=== PATIENT | female | born 1935 | race Caucasian/White ===

== ENCOUNTER 2017-09-01 08:23 | Emergency (ER) | payer MEDICARE ==
[~2017-09-01] VITALS: Ht 162.6 cm; Wt 63.5 kg
[~2017-09-01 08:23] MED LIST: ALENDRONATE SOD70 MG PO; AMLODIPINE BESY10 MG PO; ANTIVERT; AREDS PO; ASPIRIN81 MG PO; BACLOFEN10 MG PO; CETIRIZINE HCL10 MG PO; CIPRO500 MG PO; CRESTOR10 MG PO; FLONASE16 GM; FUROSEMIDE20 MG PO; GABAPENTIN100 MG PO; HYDRALAZINE HCL25 MG PO; LEVAQUIN500 MG PO; LEVOTHYROXINE50 MCG PO; LIDODERM700 MG TP; LISINOPRIL10 MG PO; LORATADINE10 MG PO; MELOXICAM7.5 MG PO; NIACIN500 M2 PO; NITROFURANTOIN100 MG PO; OCUVITE TABLET1 EAC1 PO; PREDNISONE5 MG PO; VITAMIN D1000 UNI1 PO; ZANAFLEX2 M1 PO
--- OUTSIDE RECORDS SUMMARY | 2017-09-01 08:26 | XMS REPORT ---
[facility] Address Unknown Phone Unavailable Care Team Providers Care Insurance Service Representative Name Role Phone NEERAJ TIRADO Unavailable Unavailable CHASE, SANDRA Unavailable Unavailable Problems This patient has no known problems. Allergies, Adverse Reactions, Alerts This patient has no known allergies or adverse reactions. Medications This patient has no known medications. Results Test Description Test Time Test Comments Text Results Atomic Results Result Comments CHEST SINGLE (PORTABLE) [place] [address] Patient Name: YUE RAMSEY MR #: [id number] : 1935 Age/Sex: 81/F Req #: [id number] Adm Physician: Ordered by: NEERAJ TIRADO MD Report #: [id number] Location: ER Room/Bed: Procedure: [id number] DX/CHEST SINGLE (PORTABLE) Exam Date: 03/13/17 Exam Time: 0935 REPORT STATUS: Signed PROCEDURE: CHEST SINGLE (PORTABLE) COMPARISON: Chest x-ray from 01/12/17. INDICATIONS: ALTERED MENTAL STATUS FINDINGS: Lines and tubes: None The cardiac silhouette is prominent, possibly accentuated by low lung volumes. No focal pulmonary opacity, pleural effusion or pneumothorax. Upper abdomen unremarkable with no free air. No acute bony abnormality. CONCLUSION: No evidence for acute disease. Dictated by: Asad Lewis M.D. on 03/13/2017 at 10:00 Electronically approved by: Asad Lewis M.D. on 03/13/2017 at 10:00 Dictated By: ASAD LEWIS MD 1000 Transcribed By: NAM on 03/13/17 1000 COPY TO: NEERAJ TIRADO MD CT BRAIN WO [place] [address] Patient Name: YUE RAMSEY MR #: [id number] : 1935 Age/Sex: 81/F Req #: [id number] Adm Physician: Ordered by: NEERAJ TIRADO MD Report #: [id number] Location: ER Room/Bed: Procedure: [id number] CT/CT BRAIN WO Exam Date: 03/13/17 Exam Time: 932 REPORT STATUS: Signed EXAMINATION: Head CT HISTORY: Altered mental status COMPARISON: Head CT on 08/03/2014 TECHNIQUE: Multidetector axial images were obtained without contrast from the foramen magnum to the vertex . The images were reconstructed using brain and bone algorithms. Thin section brain images were reformatted into coronal and sagittal planes. Intravenous contrast: None. Motion/streaking artifact limits the evaluation of the skull base and posterior cranial fossa. FINDINGS: Parenchyma: 1. Mild white matter chronic contrast and ischemic changes, within normal limits for age. 2. No mass or hemorrhage. No CT evidence of acute territorial vascular insult. Extra-axial spaces:No abnormal density. No extra-axial fluid collections Brain volume: Normal for age. Ventricles: No hydrocephalus or displacement. Arteries : No density suggestive of thrombus. Dural sinuses: No abnormal density. Extra-axial spaces: No abnormal density. Foramen magnum : No mass, Chiari malformation, or basilar invagination. Sella: No obvious mass. Paranasal/mastoid sinuses: Imaged portions unremarkable. Skull/Scalp: No lytic or blastic lesions. No fractures. IMPRESSION: 1. No acute abnormalities, particularly no hemorrhage or cortical infarct. 2. Mild chronic microvascular ischemic changes. Signed by: Dr. Peterson Castro M.D. on 03/13/2017 11:15 AM Dictated By: PETERSON CASTRO MD 111 Transcribed By: GELY on 03/13/17 1115 COPY TO: NEERAJ TIRADO MD ABDOMEN-1VIEW (KUB) [place] [address] Patient Name: YUE RAMSEY MR #: [id number] : 1935 Age/Sex: 81/F Req #: [id number] Adm Physician: SANDRA CHASE MD Ordered by: MATTHEW GALAVIZ MD Report #: [id number] Location: [facility] Room/Bed: [place] [address] Procedure: [id number] DX/ABDOMEN-1VIEW (KUB) Exam Date : 03/08/17 Exam Time: 1347 REPORT STATUS: Signed EXAM: Abdomen 2 Views INDICATION: Abdominal pain. COMPARISON: MRCP dated 01/13/2017 FINDINGS: Limited by body habitus. Nonobstructive bowel gas pattern. No signs of pneumoperitoneum. Multilevel degenerative changes of lumbar spine. Lung bases are clear. Soft tissue calcifications overlying iliac bones. IMPRESSION: 1. Nonobstructive bowel gas pattern. Signed by: Dr. Slick Haas MD on 03/08/2017 2:12 PM Dictated By: SLICK HAAS MD 11 Transcribed By: GELY on 03/08/171411 COPY TO: MATTHEW GALAVIZ MD US ABDOMEN COMPLETE [place] [address] Patient Name: YUE RAMSEY MR #: [id number] : 1935 Age/Sex: 81/F Req #: [id number] Adm Physician: SANDRA CHASE MD Ordered by: MATTHEW GALAVIZ MD Report #: [id number] Location: [facility] Room/Bed: [place] [address] Procedure: [id number] US/US ABDOMEN COMPLETE Exam Date : Exam Time: REPORT STATUS: Signed EXAM: Complete Abdominal Ultrasound INDICATION: COMPARISON: Ultrasound dated 01/12/2017. TECHNIQUE: Transverse and longitudinal images of the upper abdomen were obtained. FINDINGS: Liver: Size: 14.1 cm in the right midclavicular line, normal Appearance: Normal echogenicity, smooth contour Mass: No focal masses Spleen: Size: 9.5 cm in length, normal Echogenicity: Normal Mass: No focal masses Gallbladder: Stones/Sludge: None Wall: 0.1 cm Appearance : No pericholecystic fluid or hydrops. Sonographic Sierra's Sign: Negative Bile Ducts: Intrahepatic Ducts: No dilatation Extrahepatic Ducts: Common bile duct measures 0.3 cm, normal Pancreas: Visualized portions of the pancreatic head, neck and proximal body are normal. Right Kidney: Size: 9.7 cm Echogenicity: Normal Parenchymal thickness: Normal Collecting System: No hydronephrosis Stone: None Cyst/Mass: Multiple right renal cysts , the largest measuring 5.1 x 4.6 x 4.1 cm and 2.9 x 1.6 x 3 cm Left Kidney: Size: 8.6 cm Echogenicity: Normal Parenchymal thickness: Normal Collecting System: No hydronephrosis Stone: None Cyst/Mass: 2.3 x 2.1 x 2.2 cm cyst. Vessels: Aorta: Visualized portions are normal Inferior Vena Cava: Visualized portions are normal Main Portal Vein: 0.8 cm, normal size with hepatopetal flow. Free Fluid: No ascites or pleural effusion IMPRESSION: Bilateral renal cysts. Otherwise, unremarkable abdominal ultrasound. Signed by: Dr. Slick Haas MD on 03/08/2017 4 :51 PM Dictated By: SLICK HAAS MD 50 Transcribed By: GELY on 03/08/171650 COPY TO: MATTHEW GALAVIZ MD MRI MRCP WO [place] [address] Patient Name: YUE RAMSEY MR #: [id number] : 1935 Age/Sex: 81/F Req #: [id number] Adm Physician: SANDRA CHASE MD Ordered by: ABRAHAM TOLENTINO MD Report #: [id number] Location: [place] [address] Room/Bed: [facility] Procedure: [id number] MRI/MRI MRCP WO Exam Date: 01/13/17 Exam Time: 0850 REPORT STATUS: Signed EXAM: Magnetic Resonance Cholangiopancreatography (M.R.C.P.) INDICATION: COMPARISON: Abdominal ultrasound 01/12/2017, abdominal CT 01/12/2017 TECHNIQUE: Multiplanar, multisequence MRCP was performed, with sequences including coronal turbo spin-echo T1-weighted scans, [facility] MRCP scans, coronal spin, [facility]PR 2[facility], [facility]. IV Contrast: None Oral Contrast: None Medications: None COMPLICATIONS : None FINDINGS: LOWER THORAX: Trace pericardial effusion. HEPATOBILIARY: No focal hepatic lesions. No biliary ductal dilation. No filling defects within the common bile duct. GALLBLADDER: No stones or sludge. Previously noted sludge on ultrasound 01/12/2017 is not apparent on the current exam. No wall thickening. SPLEEN: No splenomegaly. PANCREAS: No focal masses or ductal dilatation. ADRENALS: No adrenal nodules KIDNEYS/URETERS: No hydronephrosis. Multiple bilateral renal cysts measuring up to 5.1 cm in the right kidney and 2.4 cm and the left kidney. These appear simple, although evaluation is limited without intravenous contrast. Renal stones are difficult to visualize with MRI. GI TRACT: No abnormal distention, wall thickening, or evidence of bowel obstruction. Small to moderate hiatal hernia. LYMPH NODES: Prominent mandi hepatis lymph nodes measure up to 1.1 cm, nonspecific. VESSELS: Unremarkable. PERITONEUM / RETROPERITONEUM: No free fluid. BONES: Unremarkable. SOFT TISSUES: Unremarkable. IMPRESSION: 1. No acute abnormalities. 2. Multiple bilateral renal cysts. 3. Prominent mandi hepatis lymph nodes are nonspecific but can be seen with hepatitis infection. 4. Hiatal hernia. Signed by: DR. Nick Costa MD on 01/13/2017 3:41 PM Dictated By: NICK COSTA MD 1541 Transcribed By: GELY on 01/13/17 1541 COPY TO: ABRAHAM TOLENTINO MD CHEST 2 VIEWS [place] [address] Patient Name: YUE RAMSEY MR #: [id number] : 1935 Age/Sex: 81/F Req #: [id number] Adm Physician: Ordered by: NEERAJ TIRADO MD Report #: [id number] Location: ER Room/Bed: Procedure: DX/CHEST 2 VIEWS Exam Date: 01/12/17 Exam Time: 1445 REPORT STATUS: Signed EXAMINATION: Chest, CHEST 2 VIEWS INDICATION: Chest pain COMPARISON: None FINDINGS: LINES : None. Heart: Normal cardiac silhouette. Vascular: The pulmonary vasculature is within normal limits. Atherosclerotic calcifications of the aortic arch. Mediastinum: No mediastinal, hilar, or axillary mass or lymphadenopathy. Lungs: No parenchymal mass. No focal consolidation. Pleura: No pleural effusion. No pneumothorax. Bones: No acute osseous abnormality. Degenerative changes of the thoracic spine. Soft tissues: Normal. Impression: No acute radiographic abnormality. Signed by: Dr. Julio Pino M.D. on 01/12/2017 3:31 PM Dictated By: JULIO PINO MD 1531 Transcribed By: GELY on 01/12/17 1531 COPY TO: NEERAJ TIRADO MD CT ABDOMEN/PELVIS WO [place] [address] Patient Name: YUE RAMSEY MR #: [id number] : 1935 Age/Sex: 81/F Req #: [id number] Adm Physician: Ordered by: NEERAJ TIRADO MD Report #: [id number] Location: ER Room/Bed: Procedure: [id number] CT/CT ABDOMEN/PELVIS WO Exam Date: 01/12/17 Exam Time: 1500 REPORT STATUS: Signed EXAM: CT Abdomen and Pelvis WITHOUT contrast INDICATION: Abdominal pain COMPARISON: None. TECHNIQUE: Abdomen and pelvis were scanned utilizing a multidetector helical scanner from the lung base to the pubic symphysis. Coronal and sagittal reformations were obtained. The lack of intravenous contrast limits the evaluation of the solid organs, vasculature, and possible lymphadenopathy. Protocol: General survey without contrast IV CONTRAST : No intravenous contrast was administered as per physician request. ORAL CONTRAST: None. COMPLICATIONS: None. RADIATION DOSE: Total Exam DLP: 253.6 mGy*cm. CTDIvol has been reviewed. It is below the limits set by the Radiation Protocol Committee (RPC). FINDINGS: LINES: None. Lower thorax: No parenchymal abnormality. No pneumothorax. No pleural effusion. Liver: No focal mass. No hepatomegaly. Normal parenchyma. Gallbladder: No gallstones. No gallbladder distention. Biliary tree: No intrahepatic duct dilation. No extrahepatic duct dilation. Spleen: No splenomegaly. No focal mass. Pancreas: No focal mass. Normal pancreatic duct. No peripancreatic inflammatory changes. Kidneys: No obstructing calculi. No hydronephrosis. Multiple bilateral cysts, several of which have partial calcifications. No perinephric soft tissue inflammatory changes. Adrenal glands: No adrenal nodules.. Bladder: Normal urinary bladder. Pelvic organs: Hysterectomy. No ovaries are visualized. GI: Moderate hiatal hernia. No bowel wall thickening. No air-fluid levels. The stomach and small bowel are normal. Numerous diverticuli are present in the descending and sigmoid colon, without adjacent soft tissue inflammatory changes. No appendix is visualized. A moderate amount of retained feces limits intraluminal evaluation of the colon. Peritoneum/retroperitoneum: No pneumoperitoneum. No ascites. No drainable fluid collection. Lymph nodes: No lymphadenopathy. . Vessels: No focal abnormality. Atherosclerotic calcifications. Limited evaluation. Bones: No focal abnormality. Degenerative changes of the lumbar spine. Soft tissues: No focal abnormality. IMPRESSION: No acute abnormality of the abdomen and pelvis. Multiple indeterminate renal cysts. A nonemergent renal ultrasound may provide additional information for further characterization. Diverticulosis without evidence of diverticulitis. Signed by: Dr. Julio Pino M.D. on 01/12/2017 3:44 PM Dictated By: JULIO PINO MD 1547 Transcribed By: GELY on 01/12/17 3915 COPY TO: NEERAJ TIRADO MD US LIVER [place] [id number] [place] [address] Patient Name: YUE RAMSEY MR # : [id number] : 1935 Age/Sex: 81/F Req #: [id number] Adm Physician: SANDRA CHASE MD Ordered by: NEERAJ TIRADO MD Report #: [id number] Location: [facility] Room/Bed: [place] [address] __ Procedure: [id number] US/US LIVER Exam Date: Exam Time: REPORT STATUS: Signed EXAM: Right Upper Quadrant Ultrasound INDICATION: Elevated liver enzymes COMPARISON: CT of the abdomen and pelvis on 01/12/2017 TECHNIQUE: Transverse and longitudinal images of the right upper abdomen were obtained. FINDINGS: Liver : Size: 15.4 cm in the right midclavicular line, normal Appearance: Normal echogenicity, smooth contour Mass: No focal masses Gallbladder: Stones/ Sludge: Small amount sludge Wall: 0.1 cm Appearance: No wall thickening, pericholecystic fluid or hydrops. Sonographic Sierra's Sign: Negative Bile Ducts: Intrahepatic Ducts: No dilatation Extrahepatic Ducts: Common bile duct measures 0.4 cm, no dilatation Pancreas: Visualized portions of the pancreatic head, neck and proximal body are normal. Kidneys: Length: Right 12.1 cm Echogenicity: Normal Collecting System: No hydronephrosis Stone: None Cyst/Mass: Multiple right renal cysts, the largest measuring 4.8 x 4 x 4.8 cm in the upper pole Vessels: Aorta: Visualized portions are normal Inferior Vena Cava: Visualized portions are normal Main Portal Vein: 0.7 cm, normal size with hepatopetal flow. Free Fluid: No ascites or pleural effusion IMPRESSION: 1. Multiple right renal cysts. 2. Gallbladder sludge without wall thickening. 3. Otherwise, unremarkable study Signed by: Dr. Luther Arenas M.D. on 01/12 8:17 PM Dictated By: LUTHER BLACK MD 16 Transcribed By: GELY on 01/12/172016 COPY TO: NEERAJ TIRADO MD
[2017-09-01] MEDS ORDERED: MECLIZINE HCL12.5 MG PO (08:50)
[2017-09-01] MEDS ORDERED: MECLIZINE HCL25 M1 (08:50)
[2017-09-01] MEDS ORDERED: MECLIZINE HCL 12.5 MG TAB PO ONE (09:15)
[2017-09-01 09:48] LABS: BASOPHILS # (AUTO) 0.1 (0.0-0.1); EOSINOPHILS # (AUTO) 0.2 (0.0-0.4); HEMATOCRIT 40.9 % (34.2-44.1); HEMOGLOBIN 13.9 g/dL (12.0-16.0); LYMPHOCYTES # (AUTO) 1.8 (1.0-3.2); MEAN CORPUSCULAR HEMOGLOBIN 30.2 pg (28-32); MEAN CORPUSCULAR VOLUME 88.9 fL (81-99); MONOCYTES # (AUTO) 0.5 (0.2-0.8); MONOCYTES % 7.6 % (4.4-11.3); NEUTROPHILS # (AUTO) 4.4 (2.1-6.9); NEUTROPHILS % 62.1 % (38.7-80.0); PLATELET COUNT 235 x10e3/uL (140-360); RED CELL DISTRIBUTION WIDTH 13.7 % (11.7-14.4)
[2017-09-01 10:02] LABS: ALBUMIN 3.8 g/dL (3.5-5.0); ANION GAP 11.7 mmol/L (8-16); CALCIUM 9.2 mg/dL (8.4-10.2); CREATININE, SERUM 1.14 mg/dL (0.57-1.11); POTASSIUM 3.7 mmol/L (3.5-5.1)
[2017-09-01 10:48] VITALS: BP 124/96
== END 2017-09-01 11:00 | disposition home or self-care (01) ==
LOC: ER 08:23
DX: R42 Dizziness and giddiness (principal); H81.11 Benign paroxysmal vertigo, right ear; I10 Essential (primary) hypertension; E03.9 Hypothyroidism, unspecified
CPT/HCPCS: 36415; 80053; 85025; 93005; 99284

== ENCOUNTER → 2018-01-30 | Outpatient (CLI) | payer MEDICARE ==
[~2018-01-30] MED LIST changes: +MECLIZINE HCL12.5 MG PO; +MECLIZINE HCL25 M1
--- NOTE | 2018-01-30 11:47 | Diagnostic Imaging Report ---
History: Amnesia, dizziness Comparison studies: None Technique: Sagittal T2; axial DWI, FLAIR, MPGR, T1, Coronal FLAIR. Intravenous contrast: None Findings: Scalp: Normal in signal . No masses . Bone marrow: Normal in signal intensity. Extra-axial: No masses, no fluid collections. Brain sulci: Mildly prominent. Ventricles: Mildly prominent . No hydrocephalus . Parenchyma: Scattered T2/flair hyperintensities of the periventricular and deep white matter. Similar changes are seen at the arlen No masses, hemorrhage, acute or chronic vascular insults. Suprasellar region: No abnormalities. Craniocervical junction: No abnormalities. Patent foramen magnum. No Chiari one malformation. Vessels: Normal flow-voids in the arteries and sinuses. IMPRESSION: 1. No acute abnormalities. 2. Moderate chronic microvascular ischemic changes of the white matter and mild diffuse age-related volume loss Signed by: DR Trenton Ricardo M.D. on 01/30/2018 11:44 AM
== END ==
LOC: MRI 09:12
PROVIDERS: ATTEND Internal Medicine
DX: R41.3 Other amnesia (principal); H81.11 Benign paroxysmal vertigo, right ear
CPT/HCPCS: 70551

== ENCOUNTER 2018-05-21 13:09 | Emergency (ER) | payer MEDICARE ==
[~2018-05-21] VITALS: Ht 163.8 cm; Wt 63.5 kg
[2018-05-21 14:14] LABS: BASOPHILS % 0.2 % (0.0-1.0); EOSINOPHILS % 0.2 % (0.0-6.0); HEMATOCRIT 40.6 % (34.2-44.1); HEMOGLOBIN 13.6 g/dL (12.0-16.0); LYMPHOCYTES # (AUTO) 0.4 (1.0-3.2); MEAN CORPUSCULAR HEMOGLOBIN 31.6 pg (28-32); MEAN CORPUSCULAR HGB CONC 33.5 g/dL (31-35); MEAN CORPUSCULAR VOLUME 94.4 fL (81-99); MONOCYTES # (AUTO) 0.5 (0.2-0.8); MONOCYTES % 4.2 % (4.4-11.3); NEUTROPHILS # (AUTO) 11.8 (2.1-6.9); NEUTROPHILS % 91.9 % (38.7-80.0); PLATELET COUNT 254 x10e3/uL (140-360); RED CELL DISTRIBUTION WIDTH 13.6 % (11.7-14.4)
[2018-05-21 14:30] LABS: ALBUMIN 3.7 g/dL (3.5-5.0); ANION GAP 17.9 mmol/L (8-16); CALCIUM 8.8 mg/dL (8.4-10.2); CREATININE, SERUM 1.55 mg/dL (0.57-1.11); POTASSIUM 3.9 mmol/L (3.5-5.1)
[2018-05-21 14:48] LABS: CLARITY,URINE CLOUDY (CLEAR); COLOR,URINE YELLOW (YELLOW)
[2018-05-21 14:50] LABS: BILIRUBIN,URINE NEGATIVE (NEGATIVE); KETONES,URINE TRACE (NEGATIVE); LEUKOCYTE ESTERASE ,URINE 1+ (NEGATIVE); NITRITE,URINE NEGATIVE (NEGATIVE); PROTEIN,URINE DIPSTICK 1+ (NEGATIVE); URINE UROBILINOGEN 0.2 mg/dL (0.2 - 1)
[2018-05-21 14:51] LABS: BACTERIA,URINE MANY /HPF; EPITHELIAL CELLS,URINE MANY /LPF
[2018-05-21 15:21] LABS: EOSINOPHILS % (MANUAL) 1 % (0-7); LYMPHOCYTES % (MANUAL) 9 % (19-48); MONOCYTES % (MANUAL) 3 % (3.4-9.0); NEUTROPHILS % (MANUAL) 83 % (40-74)
[2018-05-21 15:22] LABS: PLATELET ESTIMATE ADEQUATE; RBC MORPHOLOGY COMMENT NORMAL
--- NOTE | 2018-05-21 16:53 | NUR ---
PATIENT EVALUATED IN TRIAGE BY DR. BROWN AND BHARATHI Naik
[2018-05-21] MEDS ORDERED: SODIUM CHLORIDE 0.9% 1000ML 1,000 ML IV SCH (17:00)
[2018-05-21] MEDS ORDERED: PANTOPRAZOLE 40 MG 10ML VIAL IV NR (17:00)
[2018-05-21] MEDS ORDERED: ONDANSETRON HCL INJ 2 MG/ML VIAL IV NR (17:15)
[2018-05-21] MEDS ORDERED: ACETAMINOPHEN 1000 MG/100 ML IV NR (19:34)
--- NOTE | 2018-05-21 20:06 | Diagnostic Imaging Report ---
EXAM: CT Abdomen and Pelvis WITHOUT contrast INDICATION: Vomiting ^ABD PAIN tvrbo per electrical solderer cacace wt 05/21/18@1750 COMPARISON: Abdominal ultrasound 03/08/2017. MRCP 01/13/2017. CT abdomen and pelvis 01/12/2017. TECHNIQUE: Abdomen and pelvis were scanned utilizing a multidetector helical scanner from the lung base to the pubic symphysis without administration of IV contrast. Absence of intravenous contrast decreases sensitivity for detection of focal lesions and vascular pathology. Coronal and sagittal reformations were obtained. Routine protocol was performed. IV CONTRAST: None ORAL CONTRAST: Water COMPLICATIONS: None RADIATION DOSE: Total DLP: 403.24 mGy*cm Estimated effective dose: (DLP x 0.015 x size factor) mSv CTDIvol has been reviewed. It is below the limits set by the Radiation Protocol Committee (RPC). FINDINGS: LINES and TUBES: None. LOWER THORAX: 4.1 mm nodule in the right lower lobe (series 2, image 3). HEPATOBILIARY: No focal hepatic lesions. No biliary ductal dilation. GALLBLADDER: No radio-opaque stones or sludge. No wall thickening. SPLEEN: No splenomegaly. PANCREAS: No focal masses or ductal dilatation. ADRENALS: No adrenal nodules KIDNEYS/URETERS: No hydronephrosis. 4.7 cm cystic lesion in the superior pole of the right kidney. 4.8 cm simple cyst in the superior pole/interpolar region of the right kidney. 2.4 cm cyst with mild peripheral calcification in the interpolar region of the right kidney. 1.0 cm hyperdense lesion in the superior pole left kidney, likely hemorrhagic cyst. 2.4 cm cystic lesion in the inferior pole of the left kidney. No stones. GI TRACT: Moderate sliding hiatal hernia. Small bowel measures 2.5 cm without evidence of obstruction. No abnormal distention, wall thickening, or evidence of bowel obstruction. There are diverticula within the colon without evidence of diverticulitis. Appendix is not visualized.. PELVIC ORGANS/BLADDER: Uterus is surgically absent. Both ovaries are not visualized. LYMPH NODES: No lymphadenopathy. VESSELS: There is severe atherosclerotic disease in the aorta and major arterial branches. Left renal artery stent. PERITONEUM / RETROPERITONEUM: No free air or fluid. BONES: Unremarkable. SOFT TISSUES: Posterior gluteal dystrophic calcifications. IMPRESSION: 1. Moderate sliding hiatal hernia. 2. Severe vascular calcifications. 3. Multiple renal cystic lesions, likely simple cysts. Signed by: Dr. Ryan Nettles M.D. on 05/21/2018 8:02 PM
--- NOTE | 2018-05-21 20:45 | NUR ---
DISCHARGE INSTRUCTIONS GIVEN WITH RX. LT AC PIV DC'D AT THIS TIME, CATH INTACT, SITE WITHOUT COMPLICATIONS. PT AMB OUT TO PRIVATE AUTO WITHOUT COMPLICATION/DISTRESS.
[2018-05-21 20:55] VITALS: BP 134/66
== END 2018-05-21 20:57 | disposition home or self-care (01) ==
LOC: ER 13:09
DX: R50.9 Fever, unspecified (principal); R11.2 Nausea with vomiting, unspecified; R10.9 Unspecified abdominal pain
CPT/HCPCS: 36415; 74176; 80053; 81001; 85025; 99284; J0131; J2405; J7030

== ENCOUNTER 2018-11-10 02:37 | Observation (INO) | payer MEDICARE ==
[2018-11-10] VITALS (9 sets, daily range): BP systolic 130–154; BP diastolic 61–74
[~2018-11-10] VITALS: Ht 163.8 cm; Wt 63.5 kg
[2018-11-10] MEDS ORDERED: ONDANSETRON HCL INJ 2MG/ML 2ML 2 MG/ML VIAL IV STA (02:56)
[2018-11-10] MEDS ORDERED: SODIUM CHLORIDE 0.9% 1000ML 1,000 ML IV ONE (03:00)
[2018-11-10] MEDS ORDERED: DIATRIZOATE MEGL/DIATRIZOA SOD 30 ML BTL PO ONE (03:09)
[2018-11-10 03:35] LABS: BASOPHILS # (AUTO) 0.1 (0.0-0.1); BASOPHILS % 0.4 % (0.0-1.0); EOSINOPHILS # (AUTO) 0.2 (0.0-0.4); EOSINOPHILS % 1.5 % (0.0-6.0); HEMATOCRIT 38.3 % (34.2-44.1); HEMOGLOBIN 12.6 g/dL (12.0-16.0); LYMPHOCYTES # (AUTO) 0.7 (1.0-3.2); LYMPHOCYTES % 5.3 % (18.0-39.1); MEAN CORPUSCULAR HEMOGLOBIN 30.9 pg (28-32); MEAN CORPUSCULAR HGB CONC 32.9 g/dL (31-35); MEAN CORPUSCULAR VOLUME 93.9 fL (81-99); MONOCYTES # (AUTO) 0.8 (0.2-0.8); MONOCYTES % 6.1 % (4.4-11.3); NEUTROPHILS # (AUTO) 10.6 (2.1-6.9); NEUTROPHILS % 86.5 % (38.7-80.0); PLATELET COUNT 238 x10e3/uL (140-360); RED BLOOD COUNT 4.08 x10e6/uL (3.6-5.1); RED CELL DISTRIBUTION WIDTH 13.1 % (11.7-14.4)
[2018-11-10 03:58] LABS: ALANINE AMINOTRANSFERASE 34 IU/L (0-55); ALBUMIN 3.8 g/dL (3.5-5.0); ALBUMIN/GLOBULIN RATIO 1.1 (0.8-2.0); ALKALINE PHOSPHATASE 88 IU/L (40-150); AMYLASE 110 U/L (25-125); ANION GAP 15.3 mmol/L (8-16); BLOOD UREA NITROGEN 25 mg/dL (7-26); CALCIUM 9.4 mg/dL (8.4-10.2); CARBON DIOXIDE 23 mmol/L (22-29); CHLORIDE 107 mmol/L (98-107); CREATINE KINASE 124 IU/L (29-168); GLUCOSE 177 mg/dL (74-118); LIPASE 106 U/L (8-78); POTASSIUM 4.3 mmol/L (3.5-5.1); SODIUM 141 mmol/L (136-145)
[2018-11-10 04:12] LABS: CREATININE, SERUM 1.39 mg/dL (0.57-1.11); EST GLOMERULAR FILTRATION RATE 36 ML/MIN (60-)
[2018-11-10 04:15] LABS: BUN/CREATININE RATIO 18 (6-25)
[2018-11-10 04:46] LABS: BILIRUBIN,URINE NEGATIVE (NEGATIVE); CLARITY,URINE CLEAR (CLEAR); COLOR,URINE YELLOW (YELLOW); KETONES,URINE NEGATIVE (NEGATIVE); LEUKOCYTE ESTERASE ,URINE NEGATIVE (NEGATIVE); NITRITE,URINE NEGATIVE (NEGATIVE); PROTEIN,URINE DIPSTICK TRACE (NEGATIVE); URINE UROBILINOGEN 0.2 mg/dL (0.2 - 1)
[2018-11-10 05:00] LABS: BACTERIA,URINE MODERATE /HPF; EPITHELIAL CELLS,URINE FEW /LPF; MUCUS,URINE MODERATE (RARE)
--- NOTE | 2018-11-10 05:26 | Diagnostic Imaging Report ---
EXAMINATION: CHEST SINGLE (PORTABLE) INDICATION: ^WEAKNESS ^[id number] ^0425 ^Y COMPARISON: 03/13/2017 FINDINGS: AP view TUBES and LINES: None. LUNGS: Lungs are well inflated. There is no evidence of pneumonia or pulmonary edema. PLEURA: No pleural effusion or pneumothorax. HEART AND MEDIASTINUM: The cardiomediastinal silhouette is unremarkable. BONES AND SOFT TISSUES: No acute osseous lesion. Soft tissues are unremarkable. UPPER ABDOMEN: No free air under the diaphragm. IMPRESSION: No acute thoracic abnormality. Signed by: Dr. Slick Briscoe MD on 11/10/2018 5:23 AM
--- NOTE | 2018-11-10 05:41 | Diagnostic Imaging Report ---
EXAM: CT Abdomen and Pelvis WITHOUT contrast INDICATION: ^ABD PAIN, N/V/D ^[id number] ^0425 ^Y COMPARISON: CT dated 05/21/2018 TECHNIQUE: Abdomen and pelvis were scanned utilizing a multidetector helical scanner from the lung base to the pubic symphysis without administration of IV contrast. Absence of intravenous contrast decreases sensitivity for detection of focal lesions and vascular pathology. Coronal and sagittal reformations were obtained. Routine protocol was performed. IV CONTRAST: None ORAL CONTRAST: None. COMPLICATIONS: None RADIATION DOSE: Total DLP: 354.83 mGy*cm Estimated effective dose: (DLP x 0.015 x size factor) mSv CTDIvol has been reviewed. It is below the limits set by the Radiation Protocol Committee (RPC). FINDINGS: LINES and TUBES: None. LOWER THORAX: Unchanged 4 mm subpleural right middle lobe nodule. Mild right basilar dependent atelectasis. HEPATOBILIARY: Hepatomegaly. Otherwise, unenhanced liver is unremarkable. No biliary ductal dilation. GALLBLADDER: No radio-opaque stones or sludge. No wall thickening. SPLEEN: No splenomegaly. PANCREAS: No focal masses or ductal dilatation. ADRENALS: Unchanged 1.4 cm right adnexal nodule, likely an adenoma. No left adrenal nodule. KIDNEYS/URETERS: No hydronephrosis. Again seen multiple bilateral renal cysts, the largest measuring 4.8 cm on the right side. Small left renal hypodense lesions are probably hemorrhagic cysts. No stones. GI TRACT: No abnormal distention, wall thickening, or evidence of bowel obstruction. Colonic diverticulosis without evidence of diverticulitis. Appendix is not visualized. Unchanged moderate size hiatal hernia. PELVIC ORGANS/BLADDER: Bladder is collapsed, limiting evaluation. Hysterectomy. LYMPH NODES: No lymphadenopathy. VESSELS: Limited evaluation without intravenous contrast. Moderate aortoiliac atherosclerotic disease. PERITONEUM / RETROPERITONEUM: No free air or fluid. BONES: Abdominal CT dated changes of lumbar spine. Again seen scattered sclerotic foci, likely bone islands. SOFT TISSUES: Bilateral subcutaneous buttock injection granulomas. IMPRESSION: 1. No definite evidence of acute inflammatory process in the abdomen/pelvis, considering limitations of unenhanced study. 2. Several bilateral renal cysts, some complex. These can be further evaluated with renal ultrasound. 3. Unchanged moderate size hiatal hernia. 4. Colonic diverticulosis without evidence of diverticulitis. 5. Hepatomegaly. Signed by: Dr. Slick Briscoe MD on 11/10/2018 5:37 AM
[2018-11-10] MEDS ORDERED: ONDANSETRON HCL INJ 2MG/ML 2ML 2 MG/ML VIAL IV PRN (05:45)
[2018-11-10] MEDS: SODIUM CHLORIDE 0.9% 1000ML 1,000 ML IV SCH ×2 (06:20→17:05)
--- NOTE | 2018-11-10 06:41 | NUR ---
patient came from with stretcher, awake alert oriented, family with her, no distress noted, look weak, able to transfer from stretcher to hospital bed with minimum assistance. vitals checked. IV fluid is running at 125cc/hr through right antecubital IV acces size 20 g. will continue to monitor.
--- NOTE | 2018-11-10 07:38 | NUR ---
Assisted patient to use bed side commode, denies any pain or SOB, No distress noted, family at bed side
[2018-11-10] MEDS: NITROFURANTOIN MACROCRYSTALS 100 MG CAP PO SCH ×2 (08:14→17:05)
[2018-11-10] MEDS ORDERED: METHYLPREDNISOLONE SOD SUCC 40 MG/ML VIAL 1ML IV ONE (10:45)
[2018-11-10] MEDS: GABAPENTIN 100 MG CAP PO SCH ×2 (12:55→22:00)
--- NOTE | 2018-11-10 14:27 | History and Physical ---
HISTORY OF PRESENT ILLNESS: This 83-year-old female, patient of mine, presented to the emergency room with a complaint of abdominal pain, nausea, vomiting, which was started a couple of hours. The patient had presented to the emergency room with a complaint of nausea, vomiting for last few hours and the patient also complained of headache, cough, congestion for last few days. The patient's pain has been 3/10. The patient also complained of generalized rash and itching. The patient stated that she was in her yard and following that she had itching and rash. REVIEW OF SYSTEMS: Detailed review of system examination was done and all systems were reviewed. ALLERGIES: THE PATIENT IS ALLERGIC TO PENICILLIN, CODEINE, BENADRYL, LISINOPRIL, AND SULFA DRUGS. MEDICATIONS: See from the list. PAST MEDICAL HISTORY: The patient has significant medical history of hypertension, hypothyroidism, hyperlipidemia, osteoarthritis, gout, ovarian cancer, cervical cancer, osteoporosis, neuropathy, and vertigo. PAST SURGICAL HISTORY: Hysterectomy, renal artery stent placement, and bilateral knee replacement. SOCIAL HISTORY: The patient denies smoking. Denies any alcohol. FAMILY HISTORY: Hypertension. PHYSICAL EXAMINATION: GENERAL: She is an elderly female patient, lying in bed. She is anxious and apprehensive. VITAL SIGNS: Temperature 99.2, blood pressure 150/77, heart rate 79, respiratory rate 18. HEENT: Normocephalic, atraumatic. NECK: No JVD. No lymphadenopathy. LUNGS: Bilateral equal air entry. No rales. No rhonchi. HEART: S1, S2, regular. No murmur. No gallop. ABDOMEN: Soft. Positive mild tenderness present. No guarding. No rigidity. EXTREMITIES: No edema. SKIN: The patient has generalized macular rash present. ADMITTING IMPRESSION/DIAGNOSES: Urinary tract infection, gastroenteritis, allergic contact dermatitis, hypertension, and abdominal pain. PLAN: The patient will be admitted with the above diagnosis. The patient will be treated with IV fluids, normal saline. We will obtain blood and urine culture. The patient will be on antibiotic, nitrofurantoin. MD BURAK Merritt/GROVER /[id number] SADE
[2018-11-10] MEDS: HYDRALAZINE HCL 25 MG TAB PO SCH ×2 (16:05→22:00)
[2018-11-10] MEDS: TRIAMCINOLONE 0.1% OINTMENT 15 GM TUBE TP SCH (17:05)
[2018-11-10] MEDS ORDERED: CHOLESTYRAMINE 4 GM PACKET PO NR ×2 (18:15→22:00)
--- NOTE | 2018-11-10 19:09 | NUR ---
received patient aaox3, no distress observed, no needs voiced. bed locked and in lowest position, call light within easy reach. will continue to monitor patient.
[2018-11-10] MEDS ORDERED: SIMVASTATIN 20 MG TAB PO SCH (21:00)
[2018-11-11] MEDS: SODIUM CHLORIDE 0.9% 1000ML 1,000 ML IV SCH ×2 (01:35→08:08)
[2018-11-11 04:09] VITALS: BP 139/65
[2018-11-11] MEDS ORDERED: LEVOTHYROXINE SODIUM 50 MCG TAB PO SCH ×2 (06:00→09:00)
[2018-11-11 06:06] LABS: BASOPHILS % 0.1 % (0.0-1.0); LYMPHOCYTES # (AUTO) 0.6 (1.0-3.2); LYMPHOCYTES % 6.2 % (18.0-39.1); MEAN CORPUSCULAR HEMOGLOBIN 30.6 pg (28-32); MEAN CORPUSCULAR HGB CONC 32.3 g/dL (31-35); MEAN CORPUSCULAR VOLUME 94.8 fL (81-99); MONOCYTES # (AUTO) 0.6 (0.2-0.8); MONOCYTES % 6.5 % (4.4-11.3); NEUTROPHILS # (AUTO) 8.1 (2.1-6.9); NEUTROPHILS % 86.2 % (38.7-80.0); PLATELET COUNT 175 x10e3/uL (140-360); RED BLOOD COUNT 3.27 x10e6/uL (3.6-5.1); RED CELL DISTRIBUTION WIDTH 13.3 % (11.7-14.4)
[2018-11-11 06:19] LABS: ALBUMIN 2.7 g/dL (3.5-5.0); ANION GAP 10.1 mmol/L (8-16); CALCIUM 7.7 mg/dL (8.4-10.2); CREATININE, SERUM 0.94 mg/dL (0.57-1.11); POTASSIUM 4.1 mmol/L (3.5-5.1)
--- NOTE | 2018-11-11 07:10 | NUR ---
pt resting in bed. no c/o pain or s/s distress. will continue to monitor.
[2018-11-11 07:26] LABS: LYMPHOCYTES % (MANUAL) 7 % (19-48); RBC MORPHOLOGY COMMENT NORMAL
[2018-11-11 07:27] LABS: MONOCYTES % (MANUAL) 3 % (3.4-9.0); NEUTROPHILS % (MANUAL) 90 % (40-74); PLATELET ESTIMATE ADEQUATE; PLATELET MORPHOLOGY COMMENT NORMAL
[2018-11-11] MEDS: NITROFURANTOIN MACROCRYSTALS 100 MG CAP PO SCH (08:08)
[2018-11-11] MEDS: HYDRALAZINE HCL 25 MG TAB PO SCH (08:08)
[2018-11-11] MEDS: TRIAMCINOLONE 0.1% OINTMENT 15 GM TUBE TP SCH (08:09)
[2018-11-11 08:22] VITALS: BP 157/65
[2018-11-11 08:42] VITALS: BP 157/65
[2018-11-11] MEDS ORDERED: MECLIZINE HCL 12.5 MG TAB PO SCH ×2 (09:00)
[2018-11-11] MEDS ORDERED: AMLODIPINE BESYLATE 10 MG TAB PO SCH (09:00)
[2018-11-11] MEDS ORDERED: SIMVASTATIN 40 MG TAB PO SCH (09:00)
--- NOTE | 2018-11-11 11:32 | Discharge Summary ---
CHIEF COMPLAINT: This 83-year-old female, patient of mine, presented to the emergency room with abdominal pain, nausea, vomiting. ADMITTING IMPRESSION/DIAGNOSES: 1. Abdominal pain, nausea, vomiting. 2. Urinary tract infection. 3. Dehydration. 4. Allergic dermatitis. 5. History of hypertension. 6. Renal artery stenosis. 7. Arthritis. HOSPITAL COURSE SUMMARY: The patient was admitted with above diagnoses. The patient was given IV fluids and antibiotic, Macrodantin. Urine culture and blood cultures were sent. The culture report is sent and the patient is doing better. So, the patient will be discharged to home on oral Macrodantin and triamcinolone cream for the allergic dermatitis and the patient will be having a close followup outpatient in the next couple of days. MD BURAK Merritt/MODL /[id number]
== END 2018-11-11 11:15 | disposition home or self-care (01) ==
LOC: ER 02:37 → ERHOLD 05:53 → IMCU 06:33
PROVIDERS: ADMIT Internal Medicine; ATTEND Internal Medicine
DX: K52.9 Noninfective gastroenteritis and colitis, unspecified (principal); N30.01 Acute cystitis with hematuria; R10.10 Upper abdominal pain, unspecified; I10 Essential (primary) hypertension; E03.9 Hypothyroidism, unspecified; Z87.440 Personal history of urinary (tract) infections; Z88.5 Allergy status to narcotic agent; Z88.0 Allergy status to penicillin; Z88.2 Allergy status to sulfonamides; Z88.8 Allergy status to other drugs, medicaments and biological substances; E78.5 Hyperlipidemia, unspecified; Z85.43 Personal history of malignant neoplasm of ovary; Z85.41 Personal history of malignant neoplasm of cervix uteri; Z82.49 Family history of ischemic heart disease and other diseases of the circulatory system; L23.9 Allergic contact dermatitis, unspecified cause; E86.0 Dehydration; I70.1 Atherosclerosis of renal artery
CPT/HCPCS: 36415 ×2; 71045; 74176; 80053 ×2; 81001; 82150 ×2; 82550; 82553; 82948; 83690 ×2; 84484; 85025 ×2; 87040; 87086; 87400; 93005; 99284; G0378 ×2; J2405; J2920; J7030 ×2; J8597

== ENCOUNTER 2019-04-15 08:35 | Emergency (ER) | payer MEDICARE ==
[~2019-04-15] VITALS: Ht 163.8 cm; Wt 63.5 kg
[2019-04-15] MEDS ORDERED: SODIUM CHLORIDE 0.9% 1000ML 1,000 ML IV STA (08:52)
--- NOTE | 2019-04-15 09:09 | NUR ---
changed into gown and slip yellow socks. warm blanket and on all monitors. sb/sinus. vss. +bilateral dp and cap refill < 2 seconds. left arm 136/63 right arm 125/79 left leg 168/70 right leg 164/60
[2019-04-15 09:11] LABS: BASOPHILS # (AUTO) 0.1 (0.0-0.1); BASOPHILS % 0.8 % (0.0-1.0); EOSINOPHILS # (AUTO) 0.2 (0.0-0.4); HEMATOCRIT 41.1 % (34.2-44.1); HEMOGLOBIN 13.8 g/dL (12.0-16.0); LYMPHOCYTES # (AUTO) 1.9 (1.0-3.2); LYMPHOCYTES % 22.1 % (18.0-39.1); MEAN CORPUSCULAR HEMOGLOBIN 30.7 pg (28-32); MEAN CORPUSCULAR HGB CONC 33.6 g/dL (31-35); MEAN CORPUSCULAR VOLUME 91.5 fL (81-99); MONOCYTES # (AUTO) 0.8 (0.2-0.8); MONOCYTES % 8.9 % (4.4-11.3); NEUTROPHILS # (AUTO) 5.6 (2.1-6.9); NEUTROPHILS % 65.8 % (38.7-80.0); PLATELET COUNT 248 x10e3/uL (140-360); RED BLOOD COUNT 4.49 x10e6/uL (3.6-5.1); RED CELL DISTRIBUTION WIDTH 13.1 % (11.7-14.4)
[2019-04-15 09:12] LABS: BILIRUBIN,URINE NEGATIVE (NEGATIVE); CLARITY,URINE SL CLOUDY (CLEAR); COLOR,URINE YELLOW (YELLOW); KETONES,URINE NEGATIVE (NEGATIVE); LEUKOCYTE ESTERASE ,URINE NEGATIVE (NEGATIVE); NITRITE,URINE NEGATIVE (NEGATIVE); PROTEIN,URINE DIPSTICK NEGATIVE (NEGATIVE); URINE UROBILINOGEN 0.2 mg/dL (0.2 - 1)
[2019-04-15 09:22] LABS: INR 0.91; PROTHROMBIN TIME 12.7 seconds (11.9-14.5)
[2019-04-15 09:23] LABS: PARTIAL THROMBOPLASTIN TIME 31.4 seconds (23.8-35.5)
[2019-04-15 09:28] LABS: RBC,URINE 0-5 /HPF (0-5)
[2019-04-15 09:29] LABS: AMORPHOUS SEDIMENT,URINE FEW (FEW); BACTERIA,URINE MANY /HPF; EPITHELIAL CELLS,URINE MODERATE /LPF; HYALINE CASTS 0-1 (0-1); MUCUS,URINE MODERATE (RARE)
[2019-04-15] MEDS ORDERED: ONDANSETRON HCL INJ 2MG/ML 2ML 2 MG/ML VIAL IV ONE (09:30)
[2019-04-15] MEDS ORDERED: PANTOPRAZOLE 40 MG 10ML VIAL IV ONE (09:30)
[2019-04-15] MEDS ORDERED: MORPHINE SULFATE 2 MG/ML SYR 1ML IV ONE (09:30)
[2019-04-15 09:34] LABS: ALBUMIN 3.7 g/dL (3.5-5.0); ALBUMIN/GLOBULIN RATIO 1.1 (0.8-2.0); ANION GAP 14.7 mmol/L (8-16); CREATININE, SERUM 1.39 mg/dL (0.57-1.11); MAGNESIUM 2.1 MG/DL (1.3-2.1); POTASSIUM 3.7 mmol/L (3.5-5.1)
--- NOTE | 2019-04-15 09:36 | Diagnostic Imaging Report ---
EXAMINATION: CHEST SINGLE (PORTABLE) INDICATION: Cough, chest pain COMPARISON: Chest radiograph of 11/08/2018 FINDINGS: LINES/TUBES:EKG leads overlie the chest. LUNGS:The lungs are well-inflated. No focal consolidation or pulmonary edema. PLEURA:No pleural effusion or pneumothorax. MEDIASTINUM:The cardiomediastinal silhouette appears unchanged in size and shape. Atherosclerotic calcifications of the thoracic aorta. BONES/SOFT TISSUES:No acute osseous injury. ABDOMEN:No free air under the diaphragm. IMPRESSION: No focal pneumonia or pulmonary edema. Signed by: Mika Maciel MD on 04/15/2019 9:33 AM
[2019-04-15 09:42] LABS: CREATINE KINASE MB 3.6 ng/mL (0-5.0)
[2019-04-15] MEDS ORDERED: CEFTRIAXONE SOD 1 GM/NS 50 ML 50 ML IV ONE (10:00)
--- NOTE | 2019-04-15 11:07 | Diagnostic Imaging Report ---
EXAM: CT Abdomen and Pelvis WITH intravenous contrast INDICATION: Abdominal pain COMPARISON: None. TECHNIQUE: Abdomen and pelvis were scanned utilizing a multidetector helical scanner from the lung base to the pubic symphysis after administration of IV contrast. Coronal and sagittal reformations were obtained. Routine protocol was performed. Scan was performed during portal venous phase. IV CONTRAST: 100mL of Isovue 370 ORAL CONTRAST: Water RADIATION DOSE: Total DLP: 292.6 mGy*cm Dose modulation, iterative reconstruction, and/or weight based adjustment of the mA/kV was utilized to reduce the radiation dose to as low as reasonably achievable. FINDINGS: LOWER THORAX: Moderate sliding hiatal hernia. HEPATOBILIARY: No focal hepatic lesions. No biliary ductal dilatation. The gallbladder appears unremarkable. SPLEEN: No splenomegaly. PANCREAS: No focal masses or ductal dilatation. ADRENALS: No adrenal nodules. KIDNEYS/URETERS: Bilateral renal cysts measure up to 4.8 cm on the right and 2.5 cm on the left. No hydronephrosis or renal calculi. No solid renal mass lesions. PELVIC ORGANS/BLADDER: Status post hysterectomy. PERITONEUM / RETROPERITONEUM: No free air or fluid. LYMPH NODES: Prominent periportal lymph nodes measure up to 11 mm short axis. VESSELS: Diffuse atherosclerotic calcifications of the nonaneurysmal abdominal aorta and major branches. GI TRACT: Severe sigmoid and descending colon diverticulosis without CT evidence of diverticulitis. No abnormal bowel thickening. No bowel obstruction. BONES AND SOFT TISSUES: No acute osseous injury. No suspicious lytic or blastic lesions. Moderate degenerative changes of the visualized spine. IMPRESSION: No acute findings in the abdomen or pelvis. Severe sigmoid and descending colon diverticulosis without CT evidence of diverticulitis. Moderate sliding hiatal hernia. Signed by: Mika Maciel MD on 04/15/2019 11:04 AM
[2019-04-15] MEDS ORDERED: SODIUM CHLORIDE 0.9% 50ML 50 ML ONE (18:25)
[2019-04-15] MEDS ORDERED: IOPAMIDOL 370 MG/ML 200 ML INFUS..BTL INJ ONE (18:25)
== END 2019-04-15 12:07 | disposition home or self-care (01) ==
LOC: ER 08:35
DX: R10.32 Left lower quadrant pain (principal); R11.0 Nausea; N30.90 Cystitis, unspecified without hematuria; N28.9 Disorder of kidney and ureter, unspecified
CPT/HCPCS: 36415; 71045; 74177; 80053; 81001; 82550; 82553; 83690; 83735; 83880; 84484; 85025; 85610; 85730; 87086; 93005; 99284; C9113; J0696; J2270; J2405; J7030; Q9967

== ENCOUNTER 2019-05-12 06:07 | Emergency (ER) | payer MEDICARE ==
[~2019-05-12] VITALS: Ht 163.8 cm; Wt 63.5 kg
[~2019-05-12 06:07] MED LIST changes: +MACROBID 100 M100 MG PO
[2019-05-12 07:21] LABS: CLARITY,URINE CLEAR (CLEAR); COLOR,URINE YELLOW (YELLOW); LEUKOCYTE ESTERASE ,URINE TRACE (NEGATIVE)
[2019-05-12 07:22] LABS: BILIRUBIN,URINE NEGATIVE (NEGATIVE); KETONES,URINE NEGATIVE (NEGATIVE); NITRITE,URINE NEGATIVE (NEGATIVE); PROTEIN,URINE DIPSTICK NEGATIVE (NEGATIVE); URINE UROBILINOGEN 0.2 mg/dL (0.2 - 1)
[2019-05-12 07:57] LABS: WBC,URINE (MAN) 0-5 /HPF (0-5)
[2019-05-12 07:58] LABS: BACTERIA,URINE RARE /HPF; EPITHELIAL CELLS,URINE RARE /LPF; RBC,URINE 0-5 /HPF (0-5)
[2019-06-03] MEDS ORDERED: NIFEDIPINE ER30 M1 PO (07:54)
[2019-06-03] MEDS ORDERED: PANTOPRAZOLE SO40 MG PO (07:55)
[2019-06-03] MEDS ORDERED: COQ1050 MG PO (07:55)
[2019-06-03] MEDS ORDERED: PROAIR HFA INH8.5 GM PO (07:56)
[2019-06-03] MEDS ORDERED: ARICEPT5 MG PO (07:56)
[2019-06-03] MEDS ORDERED: PRESERVISION A1 EAC2 PEG (07:57)
[2019-06-03] MEDS ORDERED: HYDRALAZINE HCL25 MG PO (07:58)
[2019-06-03] MEDS ORDERED: COLACE100 MG PO (07:58)
[2019-06-03] MEDS ORDERED: MELOXICAM7.5 MG PO (07:59)
[2019-06-03] MEDS ORDERED: ULTRAM 50MG50 MG PO (07:59)
[2019-06-03] MEDS ORDERED: MONTELUKAST SOD10 MG PO (08:00)
[2019-06-03] MEDS ORDERED: LEVOCETIRIZINE D5 MG PO (08:02)
[2019-06-03] MEDS ORDERED: OMEGA 3 FISH O1 EACH PO (08:02)
[2019-06-03] MEDS ORDERED: FLUTICASONE P15.8 ML (08:05)
== END 2019-05-12 10:37 | disposition home or self-care (01) ==
LOC: ER 06:07
DX: N95.2 Postmenopausal atrophic vaginitis (principal)
CPT/HCPCS: 81001; 99282

== ENCOUNTER 2019-06-27 08:00 | Inpatient (IN) | payer MEDICARE ==
[~2019-06-27] VITALS: Ht 163.8 cm; Wt 63.5 kg
[~2019-06-27 08:00] MED LIST changes: +ARICEPT5 MG PO; +COLACE100 MG PO; +COQ1050 MG PO; +FLUTICASONE P15.8 ML; +LEVOCETIRIZINE D5 MG PO; +MONTELUKAST SOD10 MG PO; +NIFEDIPINE ER30 M1 PO; +OMEGA 3 FISH O1 EACH PO; +PANTOPRAZOLE SO40 MG PO; +PRESERVISION A1 EAC2 PEG; +PROAIR HFA INH8.5 GM PO; +ULTRAM 50MG50 MG PO
[2019-06-27] MEDS ORDERED: SODIUM CHLORIDE 0.9% 500ML 500 ML IV STA (08:28)
[2019-06-27] MEDS ORDERED: CEFTRIAXONE SOD 1 GM VIAL IV ONE (08:30)
[2019-06-27] MEDS ORDERED: CEFTRIAXONE SOD 1 GM/NS 50 ML 50 ML IV ONE (08:45)
[2019-06-27] MEDS ORDERED: MEROPENEM 1GM 100 ML IV ONE (08:45)
[2019-06-27 08:57] LABS: BASOPHILS # (AUTO) 0.1 (0.0-0.1); BASOPHILS % 0.9 % (0.0-1.0); EOSINOPHILS # (AUTO) 0.8 (0.0-0.4); EOSINOPHILS % 13.6 % (0.0-6.0); HEMATOCRIT 36.8 % (34.2-44.1); HEMOGLOBIN 12.1 g/dL (12.0-16.0); LYMPHOCYTES # (AUTO) 1.1 (1.0-3.2); LYMPHOCYTES % 18.7 % (18.0-39.1); MEAN CORPUSCULAR HEMOGLOBIN 30.1 pg (28-32); MEAN CORPUSCULAR HGB CONC 32.9 g/dL (31-35); MEAN CORPUSCULAR VOLUME 91.5 fL (81-99); MONOCYTES # (AUTO) 0.5 (0.2-0.8); MONOCYTES % 9.1 % (4.4-11.3); NEUTROPHILS # (AUTO) 3.3 (2.1-6.9); NEUTROPHILS % 57.4 % (38.7-80.0); PLATELET COUNT 235 x10e3/uL (140-360); RED BLOOD COUNT 4.02 x10e6/uL (3.6-5.1); RED CELL DISTRIBUTION WIDTH 12.9 % (11.7-14.4)
[2019-06-27 09:08] LABS: CLARITY,URINE CLEAR (CLEAR); COLOR,URINE YELLOW (YELLOW)
[2019-06-27 09:09] LABS: KETONES,URINE NEGATIVE (NEGATIVE); LEUKOCYTE ESTERASE ,URINE NEGATIVE (NEGATIVE); NITRITE,URINE NEGATIVE (NEGATIVE); PROTEIN,URINE DIPSTICK 2+ (NEGATIVE)
[2019-06-27 09:10] LABS: BILIRUBIN,URINE NEGATIVE (NEGATIVE); URINE UROBILINOGEN 0.2 mg/dL (0.2 - 1)
[2019-06-27 09:12] LABS: ALBUMIN 3.1 g/dL (3.5-5.0); ALBUMIN/GLOBULIN RATIO 0.7 (0.8-2.0); ANION GAP 14.6 mmol/L (8-16); CALCIUM 9.2 mg/dL (8.4-10.2); CREATININE, SERUM 1.1 mg/dL (0.57-1.11); POTASSIUM 3.6 mmol/L (3.5-5.1)
[2019-06-27 09:18] LABS: BACTERIA,URINE MANY /HPF; RBC,URINE 0-5 /HPF (0-5)
[2019-06-27 09:20] LABS: EPITHELIAL CELLS,URINE MODERATE /LPF
[2019-06-27 09:26] LABS: CREATINE KINASE 24 IU/L (29-168)
--- NOTE | 2019-06-27 09:31 | Diagnostic Imaging Report ---
EXAMINATION: CHEST SINGLE (PORTABLE) INDICATION: ^Chest pain, look for CHF, enlarge Mediastinum ^[id number] ^[id number] COMPARISON: 04/15/2019 FINDINGS: AP view TUBES and LINES: None. LUNGS: Lungs are well inflated. There are increased interstitial opacities, consistent with interstitial edema. PLEURA: No pleural effusion or pneumothorax. HEART AND MEDIASTINUM: The cardiomediastinal silhouette is unremarkable. BONES AND SOFT TISSUES: No acute osseous lesion. Soft tissues are unremarkable. UPPER ABDOMEN: No free air under the diaphragm. IMPRESSION: Increased interstitial opacities, consistent with interstitial edema. Signed by: Jordi Green MD on 06/27/2019 9:29 AM
[2019-06-27] MEDS ORDERED: ACETAMINOPHEN 325 MG TAB PO PRN (09:45)
[2019-06-27] MEDS ORDERED: ONDANSETRON HCL INJ 2MG/ML 2ML 2 MG/ML VIAL IV PRN (09:45)
[2019-06-27] MEDS ORDERED: ENOXAPARIN SOD INJ 60 MG/0.6 ML SYR SC ONE (10:00)
[2019-06-27] MEDS ORDERED: METOPROLOL SUCCINATE 25 MG TAB XL PO ONE (10:30)
[2019-06-27 14:56] LABS: CREATINE KINASE 17 IU/L (29-168)
[2019-06-27] MEDS: LACTATED RINGER'S 1,000 ML IV SCH (15:09)
[2019-06-27 15:35] VITALS: BP 141/66
[2019-06-27 16:13] VITALS: BP 129/53
[2019-06-27] MEDS ORDERED: MECLIZINE HCL 12.5 MG TAB PO SCH (16:15)
[2019-06-27] MEDS ORDERED: MELOXICAM 7.5 MG TAB PO PRN (16:15)
[2019-06-27] MEDS ORDERED: MECLIZINE HCL 12.5 MG TAB PO PRN (16:45)
--- NOTE | 2019-06-27 16:53 | Consultation ---
DATE OF CONSULTATION: 06/27/2019 Cardiac Consultation Note. REASON FOR CONSULTATION: Syncope in atrial fibrillation. HISTORY OF PRESENT ILLNESS: Ms. Feliz is an 83-year-old female with long-standing history of chronic urinary tract infections. She had recent surgery on her rectum by Dr. Crowder. Primary care physician is Dr. Giulia Gil. She comes in with a syncopal episode. She was caught by her who brought her to the emergency room. She was found to be in atrial fibrillation at the time of admission. She has subsequently converted to sinus rhythm. She denies any past cardiac problems. She has a history of renal artery stenosis per the chart. No chest pain, palpitations, or shortness of breath. ALLERGIES: INCLUDE VERN INHIBITORS, PENICILLIN, CODEINE, BENADRYL, LISINOPRIL, SULFAMETHOXAZOLE AND TRIMETHOPRIM. FAMILY HISTORY: Noncontributory. PAST MEDICAL HISTORY: As listed above. SOCIAL HISTORY: The patient does not smoke or drink. REVIEW OF SYSTEMS: Negative except as dictated in history of present illness. PHYSICAL EXAMINATION: VITAL SIGNS: Afebrile. Heart rate 96, blood pressure 118/55, and O2 sats 98%. CARDIOVASCULAR: Regular rhythm. Systolic murmur, S4 gallop. LUNGS: Clear to auscultation bilaterally. ABDOMEN: Soft, mildly distended. Mild tenderness. Pedal pulses are 1+. GENERAL: Overall, the patient appears to be dehydrated. Oral mucosa is dry. NEUROLOGIC: No focal neurological deficits. SKIN: Turgor is reduced. LABORATORY DATA: Cardiac enzymes are negative. BNP is 232. Chest x-ray shows pulmonary edema. ASSESSMENT: 1. New onset atrial fibrillation, rate controlled, paroxysmal. 2. Syncope, likely from dehydration. PLAN: [place] intravenous fluids to help with dehydration. Echocardiogram to evaluate for structural heart problems. Cardiac enzymes are negative and should be repeated. At this point, Ms. Feliz has had recent rectal surgery. She is scheduled for further urological procedures. She does require anticoagulation long-term for reduce stroke risk from her paroxysmal atrial fibrillation, but given upcoming need for surgery as well as recent rectal surgery, I will withhold full anticoagulation aspirin only. She continues to remain in sinus rhythm. She should be monitored on telemetry overnight. Further workup as an outpatient. I thank Dr. Gil for this consultation. MD PIERRE Bustos/GROVER /[id number]
[2019-06-27] MEDS: FAMOTIDINE 20 MG/2 ML VIAL IV SCH (17:35)
[2019-06-27] MEDS: PANTOPRAZOLE SOD 40 MG TABEC PO SCH (17:35)
[2019-06-27] MEDS: DOCUSATE SODIUM 100 MG CAP PO PRN (18:33)
[2019-06-27 20:00] VITALS: BP 142/69
[2019-06-27] MEDS: GABAPENTIN 100 MG CAP PO SCH (21:00)
[2019-06-27] MEDS: NIFEDIPINE CR 30 MG TAB PO SCH (21:00)
[2019-06-27] MEDS: DONEPEZIL HCL 5 MG TAB PO SCH (21:00)
[2019-06-27 21:30] VITALS: BP 142/69
--- NOTE | 2019-06-27 23:59 | History and Physical ---
She is an 83-year-old female patient of [facility], presented to the emergency room as the patient was about to fall down at home and had caught her and she was having a syncope episode. HISTORY OF PRESENT ILLNESS: Ms. Trini Dumont is an 83-year-old female patient, who has a previous history of hypertensive heart disease and she was feeling faint and had caught her before she hit the floor and that was a transient episode and the patient is alert, awake, oriented. The patient has no other complaint of chest pain, shortness of breath, or previous syncope. The patient has recurrent dizziness. The patient had also chronic UTI and osteoarthritis. REVIEW OF SYSTEMS: No chest pain. No shortness of breath. No palpitation or abdominal pain. No headache. No diarrhea and no black stools. No abdominal pain. PAST MEDICAL HISTORY: The patient has significant medical history of hypertensive heart disease, hypothyroidism, uterine cancer, UTI, GERD, hyperlipidemia, osteoarthritis, and ovarian cancer. The patient has a history of gout and osteoporosis and neuropathy. PAST SURGICAL HISTORY: Hysterectomy and knee replacement. The patient had a renal artery stent placement done by Dr. Santos. ALLERGIES: THE PATIENT IS ALLERGIC TO VERN INHIBITORS, PENICILLIN, CODEINE, DIPHENHYDRAMINE, BACTRIM. SOCIAL HISTORY: She denies smoking. Denies drinking alcohol, EX smoker. FAMILY HISTORY: Hypertension. MEDICATIONS: See from the list. PHYSICAL EXAMINATION: GENERAL: She is an elderly female patient, lying in bed, not in any acute distress. VITAL SIGNS: Temperature 98, pulse rate 88, respirations 20, and blood pressure was 115/87. HEENT: Normocephalic, atraumatic. NECK: No JVD. No lymphadenopathy. LUNGS: Bilateral equal air entry. No rales. No rhonchi. HEART: S1, S2 IRREGULAR. Systolic murmur present. ABDOMEN: Soft. Bowel sounds are present. NEUROLOGICAL: No focal neurological deficit. ADMITTING IMPRESSION/DIAGNOSES: Syncope, acute A. FIB WITH rapid heart rate. Hypertension, heart disease, renal artery stenosis per history, osteoarthritis, and hypothyroidism. PLAN: The patient will be admitted with above diagnoses. We monitored the patient in the telemetry unit. We will give the patient metoprolol for the rate control and anticoagulation, Lovenox as per Cardiology. Additional diagnosis, the patient also has recurrent UTIs. Urine is showing bacteria and wbc. We will treat the patient with IV antibiotics Rocephin and obtain urine culture and then tailor the antibiotics according to the urine culture report. The patient will also get physical therapy, occupational therapy, and orthostatic blood pressure measurement. MD BURAK Merritt/GROVER /[id number]
[2019-06-28] VITALS (9 sets, daily range): BP systolic 141–189; BP diastolic 67–83
[2019-06-28 02:54] LABS: CREATINE KINASE 17 IU/L (29-168)
[2019-06-28] MEDS: LACTATED RINGER'S 1,000 ML IV SCH ×2 (04:11→20:09)
[2019-06-28] MEDS: LEVOTHYROXINE SODIUM 75 MCG TAB PO SCH (05:25)
[2019-06-28 05:29] LABS: BASOPHILS % 0.4 % (0.0-1.0); EOSINOPHILS # (AUTO) 0.6 (0.0-0.4); EOSINOPHILS % 13.4 % (0.0-6.0); HEMATOCRIT 28.2 % (34.2-44.1); HEMOGLOBIN 9.2 g/dL (12.0-16.0); LYMPHOCYTES # (AUTO) 1.4 (1.0-3.2); LYMPHOCYTES % 29.7 % (18.0-39.1); MEAN CORPUSCULAR HEMOGLOBIN 30.4 pg (28-32); MEAN CORPUSCULAR HGB CONC 32.6 g/dL (31-35); MEAN CORPUSCULAR VOLUME 93.1 fL (81-99); MONOCYTES # (AUTO) 0.5 (0.2-0.8); MONOCYTES % 11.2 % (4.4-11.3); NEUTROPHILS # (AUTO) 2.1 (2.1-6.9); NEUTROPHILS % 45.1 % (38.7-80.0); PLATELET COUNT 186 x10e3/uL (140-360); RED BLOOD COUNT 3.03 x10e6/uL (3.6-5.1)
[2019-06-28 05:56] LABS: ALANINE AMINOTRANSFERASE 15 IU/L (0-55); ALBUMIN 2.3 g/dL (3.5-5.0); ALBUMIN/GLOBULIN RATIO 0.7 (0.8-2.0); ALKALINE PHOSPHATASE 68 IU/L (40-150); ANION GAP 9.7 mmol/L (8-16); BLOOD UREA NITROGEN 15 mg/dL (7-26); BUN/CREATININE RATIO 19 (6-25); CARBON DIOXIDE 21 mmol/L (22-29); CHLORIDE 113 mmol/L (98-107); CREATININE, SERUM 0.77 mg/dL (0.57-1.11); EST GLOMERULAR FILTRATION RATE > 60 ML/MIN (60-); GLUCOSE 98 mg/dL (74-118); POTASSIUM 3.7 mmol/L (3.5-5.1); SODIUM 140 mmol/L (136-145)
[2019-06-28 06:32] LABS: CHOL/HDL RATIO 3.5 (3.0-3.6)
[2019-06-28] MEDS: PANTOPRAZOLE SOD 40 MG TABEC PO SCH ×2 (08:53→15:38)
[2019-06-28] MEDS: ASPIRIN 81 MG CHEW TAB PO SCH (08:54)
[2019-06-28] MEDS: METOPROLOL SUCCINATE 25 MG TAB XL PO SCH (08:54)
[2019-06-28] MEDS: OMEGA 3 POLYUNSAT FATTY ACIDS 1000 MG SOFTGEL PO SCH (08:54)
[2019-06-28] MEDS: GABAPENTIN 100 MG CAP PO SCH ×3 (08:54→20:14)
[2019-06-28] MEDS: FAMOTIDINE 20 MG/2 ML VIAL IV SCH ×2 (08:54→15:39)
[2019-06-28] MEDS ORDERED: ASPIRIN 325 MG TAB PO SCH (09:00)
[2019-06-28] MEDS ORDERED: ONDANSETRON HCL 4 MG ORAL DISINTEGRATING TAB PO PRN (14:30)
[2019-06-28] MEDS: MONTELUKAST SODIUM 10 MG TAB PO SCH (15:39)
[2019-06-28 18:20] LABS: BILIRUBIN,URINE NEGATIVE (NEGATIVE); CLARITY,URINE SL CLOUDY (CLEAR); COLOR,URINE YELLOW (YELLOW); KETONES,URINE NEGATIVE (NEGATIVE); LEUKOCYTE ESTERASE ,URINE NEGATIVE (NEGATIVE); NITRITE,URINE NEGATIVE (NEGATIVE); PROTEIN,URINE DIPSTICK NEGATIVE (NEGATIVE); URINE UROBILINOGEN 0.2 mg/dL (0.2 - 1)
[2019-06-28 18:25] LABS: BACTERIA,URINE RARE /HPF; EPITHELIAL CELLS,URINE FEW /LPF
[2019-06-28] MEDS ORDERED: DIAZEPAM INJ 5 MG/ML 2 ML IV ONE ×2 (18:30→22:00)
--- NOTE | 2019-06-28 19:06 | Diagnostic Imaging Report ---
EXAMINATION: Head CT HISTORY: Alteration of consciousness, confusion COMPARISON: None., Atrial fibrillation TECHNIQUE: Multidetector axial images were obtained without contrast from the foramen magnum to the vertex . The images were reconstructed using brain and bone algorithms. Thin section brain images were reformatted into coronal and sagittal planes. Image quality: Motion/streaking artifact limits the evaluation of the skull base and posterior cranial fossa. Dose modulation, iterative reconstruction, and/or weight based adjustment of the mA/kV was utilized to reduce the radiation dose to as low as reasonably achievable. FINDINGS: Parenchyma: 1. Few scatter white matter hypodensities, most likely nonspecific chronic microvascular ischemic changes. 2. No mass or hemorrhage. No CT evidence of acute territorial vascular insult. Extra-axial spaces:No abnormal density. No extra-axial fluid collections Brain volume: Normal for age. Ventricles: No hydrocephalus or displacement. Arteries: No density suggestive of thrombus. Dural sinuses: No abnormal density. Foramen magnum: No mass, Chiari malformation, or basilar invagination. Sella: No obvious mass. Paranasal/mastoid sinuses: Imaged portions unremarkable. Skull/Scalp: No lytic or blastic lesions. No fractures. Incidental findings: The lenses are not visualized, likely from prior cataract surgery. IMPRESSION: 1. No acute intracranial abnormalities, particularly no hemorrhagic or cortical infarct. 2. Mild traumatic chronic microvascular ischemic changes. Signed by: Dr. Savi Castro M.D. on 06/28/2019 7:04 PM
[2019-06-28] MEDS: CEFTRIAXONE SOD 1 GM/NS 50 ML 50 ML IV SCH (20:09)
[2019-06-28] MEDS: DONEPEZIL HCL 5 MG TAB PO SCH (20:14)
[2019-06-28] MEDS: SIMVASTATIN 20 MG TAB PO SCH (20:15)
[2019-06-28] MEDS: NIFEDIPINE CR 30 MG TAB PO SCH (20:20)
[2019-06-28] MEDS ORDERED: ZIPRASIDONE 20 MG VIAL IM PRN (21:00)
--- NOTE | 2019-06-28 21:51 | Progress Note ---
DATE: 06/28/2019 Cardiology Progress Note SUBJECTIVE: No major events overnight. OBJECTIVE: VITAL SIGNS: Temperature afebrile, pulse 60, respiratory rate 19, blood pressure 149/69, saturating 98% on room air. GENERAL: Elderly female, well developed, well nourished. CARDIOVASCULAR: Regular rate and rhythm. No murmurs, rubs, or gallops. LUNGS: Clear to auscultation anteriorly. ABDOMEN: Soft, nontender, nondistended. NEURO AND PSYCH: Disoriented. INPATIENT MEDICATIONS: Reviewed. LABORATORY DATA: Reviewed. TELEMETRY DATA: Reviewed, shows normal sinus rhythm with PACs. ASSESSMENT: 1. New onset atrial fibrillation, now converted to sinus rhythm. 2. Syncope secondary to dehydration. PLAN: Echocardiogram was completed today showed normal LV ejection fraction. No severe valvular abnormality. Cardiac enzymes negative x3. The patient has been ruled out for acute CT. Given perioperative issues and further planned surgeries, we will hold off on any anticoagulation. Once the patient gets more closer to discharge and surgeries have been completed, usp will need oral anticoagulation for a stroke prevention for atrial fibrillation. Per the , the patient is much more confused today and the workup for this is ongoing. Remained stable from cardiovascular standpoint. MD MAGY Duque/GROVER /[id number]
[2019-06-29] VITALS (14 sets, daily range): BP systolic 117–169; BP diastolic 49–73
[2019-06-29] MEDS ORDERED: LORAZEPAM INJ 2 MG/ML VIAL IV ONE (03:15)
[2019-06-29] MEDS: LACTATED RINGER'S 1,000 ML IV SCH (04:18)
[2019-06-29] MEDS: LEVOTHYROXINE SODIUM 75 MCG TAB PO SCH (06:00)
[2019-06-29 06:29] LABS: ALANINE AMINOTRANSFERASE 15 IU/L (0-55); ALBUMIN 2.7 g/dL (3.5-5.0); ALBUMIN/GLOBULIN RATIO 0.7 (0.8-2.0); ALKALINE PHOSPHATASE 78 IU/L (40-150); ANION GAP 13.6 mmol/L (8-16); BLOOD UREA NITROGEN 12 mg/dL (7-26); BUN/CREATININE RATIO 14 (6-25); CALCIUM 8.9 mg/dL (8.4-10.2); CARBON DIOXIDE 22 mmol/L (22-29); CHLORIDE 110 mmol/L (98-107); CREATININE, SERUM 0.87 mg/dL (0.57-1.11); EST GLOMERULAR FILTRATION RATE > 60 ML/MIN (60-); GLUCOSE 115 mg/dL (74-118); POTASSIUM 3.6 mmol/L (3.5-5.1); SODIUM 142 mmol/L (136-145)
[2019-06-29 08:01] LABS: HEMATOCRIT 35.1 % (34.2-44.1); HEMOGLOBIN 11.3 g/dL (12.0-16.0); MEAN CORPUSCULAR HEMOGLOBIN 30.2 pg (28-32); MEAN CORPUSCULAR HGB CONC 32.2 g/dL (31-35); MEAN CORPUSCULAR VOLUME 93.9 fL (81-99); RED BLOOD COUNT 3.37 x10e6/uL (3.6-5.1)
[2019-06-29 08:02] LABS: BASOPHILS % 0.6 % (0.0-1.0); EOSINOPHILS % 5.6 % (0.0-6.0); LYMPHOCYTES % 18.5 % (18.0-39.1); MONOCYTES % 11.3 % (4.4-11.3); NEUTROPHILS % 63.8 % (38.7-80.0); PLATELET COUNT 205 x10e3/uL (140-360); RED CELL DISTRIBUTION WIDTH 12.9 % (11.7-14.4)
[2019-06-29] MEDS: PANTOPRAZOLE SOD 40 MG TABEC PO SCH ×2 (08:38→17:25)
[2019-06-29] MEDS: METOPROLOL SUCCINATE 25 MG TAB XL PO SCH (08:38)
[2019-06-29] MEDS: FAMOTIDINE 20 MG TAB PO SCH ×2 (08:38→17:25)
[2019-06-29] MEDS: OMEGA 3 POLYUNSAT FATTY ACIDS 1000 MG SOFTGEL PO SCH (08:38)
[2019-06-29] MEDS: CEFTRIAXONE SOD 1 GM/NS 50 ML 50 ML IV SCH ×2 (08:38→21:13)
[2019-06-29] MEDS: ASPIRIN 81 MG CHEW TAB PO SCH (08:38)
[2019-06-29] MEDS: GABAPENTIN 100 MG CAP PO SCH ×3 (08:38→21:10)
[2019-06-29 09:24] LABS: LYMPHOCYTES # (AUTO) 0.9 (1.0-3.2); MONOCYTES # (AUTO) 0.6 (0.2-0.8); NEUTROPHILS # (AUTO) 3.2 (2.1-6.9)
[2019-06-29 09:25] LABS: EOSINOPHILS # (AUTO) 0.3 (0.0-0.4)
--- NOTE | 2019-06-29 12:08 | Progress Note ---
DATE: 06/29/2019 Cardiology Progress Note SUBJECTIVE: The patient is confused, sleeping comfortably. Cannot obtain reliable review of systems. OBJECTIVE: VITAL SIGNS: Temperature is 95.7, heart rate is 56, respirations are 18, blood pressure is 158/72, and oxygen saturation is 96% on room air. GENERAL: She is well-appearing, in no apparent distress. Sleeping comfortably. Mild confusion. HEAD: Normocephalic and atraumatic. EYES: Extraocular muscles are intact. Conjunctivae are clear. NECK: No JVD. CARDIOVASCULAR: Sinus bradycardia with ectopy. Systolic murmur at the left sternal border. LUNGS: Clear to auscultation. ABDOMEN: Soft, nontender, and nondistended. EXTREMITIES: No edema. VASCULAR: 2+ pulses. NEUROLOGIC: No focal deficits noted. Mild confusion. LABORATORY DATA: Reviewed. Hemoglobin is 11.3. Creatinine 0.78 and potassium 3.6. TELEMETRY: Monitoring revealed sinus bradycardia with PACs. IMPRESSION: 1. Paroxysmal atrial fibrillation, now sinus rhythm with PACs. 2. Syncope. 3. Dehydration. 4. Urinary tract infection. 5. Delirium and confusion. RECOMMENDATIONS: Continue antibiotic treatment per primary team. Titrate blood pressure medications as needed. The patient has bradycardia and will watch heart rate closely. If needed, we can reduce metoprolol to 12.5 mg daily. Continue to monitor closely on telemetry. We will continue to follow along with you. DO INDIGO Amaro/REMINGTONL /[id number]
[2019-06-29] MEDS ORDERED: HALOPERIDOL LACTATE 5 MG/ML VIAL IM PRN (12:45)
[2019-06-29] MEDS ORDERED: OLANZAPINE 5 MG TAB PO PRN (12:45)
[2019-06-29] MEDS ORDERED: LORAZEPAM INJ 2 MG/ML VIAL IM PRN (12:45)
--- NOTE | 2019-06-29 15:00 | Diagnostic Imaging Report ---
MRI BRAIN WO HISTORY: Altered mental status COMPARISON: Head CT 06/28/2019 TECHNIQUE: Sagittal T1, axial T2, axial T1, axial T2/FLAIR, axial gradient echo (or susceptibility weighted), coronal T1, and axial diffusion weighted MR images of the brain were obtained without contrast. Motion artifacts obscure some details. DISCUSSION: Scalp/bone marrow: Unremarkable. Brain sulci: Prominent. Ventricles: Compensatory dilatation. Extra-axial spaces: No masses or fluid collections. Parenchyma: Mild focal diffusion restriction in the bilateral central arlen (bright on DWI, isointense to dark on ADC map) is associated with T2/FLAIR hyperintensity. This is compatible with subacute/late acute ischemia. No other diffusion restricting abnormalities are seen. Scattered T2/FLAIR hyperintense foci throughout the supratentorial white matter are likely chronic microvascular ischemic changes. Otherwise, no mass, or hemorrhage. Vessels: Normal flow voids in major arteries and veins. Sellar/Suprasellar region: No abnormalities. Craniocervical junction: There are mild to moderate degenerative changes in the upper cervical spine Incidental findings: Bilateral ocular lens replacement. Small right mastoid effusion. IMPRESSION: 1. Mild focal diffusion restriction (cytotoxic edema) in the bilateral central arlen is compatible with subacute/late acute lacunar infarcts . 2. No other acute intracranial abnormalities. 3. Mild to moderate supratentorial chronic microvascular ischemic change. 4. Mild generalized cerebral volume loss. Signed by: Dr. Joon Marin M.D. on 06/29/2019 2:58 PM
[2019-06-29] MEDS: MONTELUKAST SODIUM 10 MG TAB PO SCH (17:25)
--- NOTE | 2019-06-29 19:09 | Consultation ---
DATE OF CONSULTATION: 06/29/2019 Psychiatric Consultation REASON FOR CONSULTATION: To evaluate the patient's psychosis. HISTORY OF PRESENT ILLNESS: The patient is an 83-year-old female, admitted to the hospital for atrial fibrillation with RVR. Psychiatric consultation is called to evaluate the patient's psychosis. As per the medical record, the patient has history of hypertension, hypothyroid, uterine cancer, UTI, GERD, hyperlipidemia, osteoarthritis, and ovarian cancer. Also gout, osteoporosis, and neuropathy. As per medical record, the patient came to the hospital after she had fainting spells. Upon evaluation today, the patient is found to be in the room with a sitter. She is calm and cooperative. She is lying in the bed, eating a sandwich. She is confused, oriented to self only. She thinks she is at latter day. She is not able to answer questions appropriately and at times making inappropriate comments such as claiming that she is sad because she is eating sandwich, answers are not making sense. As per nursing staff, the patient is hallucinating, seeing family members that are not there. Nurse's note reports that the patient is trying to leave the hospital, swinging at staff, screaming and . Nursing reported that the patient is more confused today afternoon and night time. She has been bradycardic. The last reading today at 11:50 is 57. She is now on sinus rhythm as per medical notes. PAST PSYCHIATRIC HISTORY: The patient has no past psych history as per note. The patient is a poor historian, unable to provide further details. FAMILY HISTORY: Unknown. SOCIAL HISTORY: The patient has a as per staff. MENTAL STATUS EXAM: The patient is an elderly female. She is alert, awake, and oriented to self. Mood is anxious. Affect is blunt. Psychomotor state is passive. She denies any suicidal or homicidal ideation. She denies any hallucination. Thought process is loose. Unable to elicit paranoia. Insight and judgment are limited. Memory appears to be grossly intact. CURRENT MEDICATIONS: 1. Geodon 10 mg IM at bedtime as needed. 2. Aricept 5 mg p.o. at bedtime. 3. Ceftriaxone. 4. Famotidine. 5. Protonix. 6. Fish oil. 7. Neurontin 100 mg p.o. 3 times a day. 8. Aspirin. 9. Metoprolol. 10. Nifedipine. 11. Simvastatin. 12. Singulair. 13. Levothyroxine. 14. Docusate. 15. Ondansetron. 16. Meclizine. 17. Meloxicam. CURRENT LABORATORY DATA: WBC 4.96, RBC 3.37, hemoglobin 11.3, hematocrit 35.1, and platelets . Sodium 142, potassium 3.6, chloride 110, CO2 22, BUN 12, and creatinine 0.87. AST 23 and ALT 15. ASSESSMENT: 1. Unspecified psychosis. 2. Rule out dementia. PLAN: 1. To discontinue Aricept. 2. Discontinue Geodon. 3. Add Haldol 2 mg IM q.6 hours p.r.n. 4. Add Ativan 0.5 IM q.6 hours p.r.n. 5. Add Zyprexa 2.5 mg p.o. q.6 hours p.r.n. 6. Monitor for agitation. Thank you for this consultation. Dictated by Leelee Trejo PA-C Jh Mcarthur MD QTV/MODL /[id number]
--- NOTE | 2019-06-29 19:12 | Diagnostic Imaging Report ---
History:<>, Comparison studies:None Technique: Axial images were obtained from the thoracic inlet. Coronal and sagittal images reconstructed from the axial data. Additional multiplanar coronal, sagittal and oblique MIP images as well as 3-D-volume rendered images of the carotid arteries and nikolski of [place] were reformatted from the axial source data. Intravenous contrast: 100 cc of Omnipaque 300. If present, stenosis is calculated utilizing the NASCET method which calculates the degree of stenosis with reference to the normal lumen of the carotid artery distal to the stenosis. Findings: Cervical CTA: Aortic arch and major vessels: Moderate scattered calcified plaque throughout the aortic arch. Calcified plaque at the origins of the left subclavian artery, left common carotid artery, within the right brachiocephalic trunk and origin of the right subclavian artery without significant stenosis. Common carotid arteries: Patent, no significant stenosis. Mild scattered calcified plaque on the left without significant stenosis. Carotid bulbs and internal carotid arteries: Patent bilaterally with catheter atherosclerosis at the carotid bulbs bilaterally with no (0%) stenosis by NASCET. External carotid arteries: Bilaterally with mild atherosclerosis at the origins without significant stenosis Vertebral arteries: Patent, no abnormalities. Intracranial CTA: Anterior circulation: Internal carotid arteries: Mild scattered calcified plaque throughout the bilateral cavernous and paraophthalmic segments without significant stenosis. Middle cerebral arteries: Patent, no proximal branch occlusion or stenosis. Anterior cerebral arteries: Patent, no proximal branch occlusion or stenosis. Vertebral arteries: Patent, no abnormalities. Basilar artery: Patent, no abnormalities. Posterior cerebral arteries: Patent, no proximal branch occlusion or stenosis. Hypoplastic right P1 segment and slightly hypoplastic left P1 segment with prominent posterior communicating arteries (-type MANAGER INTERN origins). Anatomical variants: Anterior communicating artery: Patient . Pcoms: Bilateral -type MANAGER INTERN origins. Vertebral arteries: Right is dominant. Additional findings: Few nonspecific paratracheal lymph nodes which measure up to 10 mm may be reactive. Degenerative changes in the cervical spine with mild anterolisthesis of C3 on C4, varying degrees of mild to moderate multilevel disc and multilevel facet arthrosis. Canal stenosis due to disc osteophyte complexes from C3 to C6, worse/moderate to severe at C5-C6. Multilevel uncovertebral facet arthrosis result in multilevel foraminal stenosis which is severe bilaterally at C3-C4 on the right at C4-C5, bilaterally at C5-C6 and bilaterally at C6-C7. IMPRESSION: Neck CTA: 1. Patent carotid and vertebral arteries without significant stenosis. 2. Scattered atherosclerosis with plaques as described. 3. Multilevel degenerative changes in the cervical spine as described. Intracranial CTA: 1. No major arterial branch occlusion or significant stenosis. 2. Atherosclerosis in the carotid siphons without significant stenosis. Signed by: Dr. Jorge Reynoso M.D. on 06/29/2019 7:09 PM
--- NOTE | 2019-06-29 19:12 | Diagnostic Imaging Report ---
History:<>, Comparison studies:None Technique: Axial images were obtained from the thoracic inlet. Coronal and sagittal images reconstructed from the axial data. Additional multiplanar coronal, sagittal and oblique MIP images as well as 3-D-volume rendered images of the carotid arteries and [place] were reformatted from the axial source data. Intravenous contrast: 100 cc of Omnipaque 300. If present, stenosis is calculated utilizing the NASCET method which calculates the degree of stenosis with reference to the normal lumen of the carotid artery distal to the stenosis. Findings: Cervical CTA: Aortic arch and major vessels: Moderate scattered calcified plaque throughout the aortic arch. Calcified plaque at the origins of the left subclavian artery, left common carotid artery, within the right brachiocephalic trunk and origin of the right subclavian artery without significant stenosis. Common carotid arteries: Patent, no significant stenosis. Mild scattered calcified plaque on the left without significant stenosis. Carotid bulbs and internal carotid arteries: Patent bilaterally with catheter atherosclerosis at the carotid bulbs bilaterally with no (0%) stenosis by NASCET. External carotid arteries: Bilaterally with mild atherosclerosis at the origins without significant stenosis Vertebral arteries: Patent, no abnormalities. Intracranial CTA: Anterior circulation: Internal carotid arteries: Mild scattered calcified plaque throughout the bilateral cavernous and paraophthalmic segments without significant stenosis. Middle cerebral arteries: Patent, no proximal branch occlusion or stenosis. Anterior cerebral arteries: Patent, no proximal branch occlusion or stenosis. Vertebral arteries: Patent, no abnormalities. Basilar artery: Patent, no abnormalities. Posterior cerebral arteries: Patent, no proximal branch occlusion or stenosis. Hypoplastic right P1 segment and slightly hypoplastic left P1 segment with prominent posterior communicating arteries (-type SHANK SCOURER origins). Anatomical variants: Anterior communicating artery: Patient . Pcoms: Bilateral -type SHANK SCOURER origins. Vertebral arteries: Right is dominant. Additional findings: Few nonspecific paratracheal lymph nodes which measure up to 10 mm may be reactive. Degenerative changes in the cervical spine with mild anterolisthesis of C3 on C4, varying degrees of mild to moderate multilevel disc and multilevel facet arthrosis. Canal stenosis due to disc osteophyte complexes from C3 to C6, worse/moderate to severe at C5-C6. Multilevel uncovertebral facet arthrosis result in multilevel foraminal stenosis which is severe bilaterally at C3-C4 on the right at C4-C5, bilaterally at C5-C6 and bilaterally at C6-C7. IMPRESSION: Neck CTA: 1. Patent carotid and vertebral arteries without significant stenosis. 2. Scattered atherosclerosis with plaques as described. 3. Multilevel degenerative changes in the cervical spine as described. Intracranial CTA: 1. No major arterial branch occlusion or significant stenosis. 2. Atherosclerosis in the carotid siphons without significant stenosis. Signed by: Dr. Jorge Reynoso M.D. on 06/29/2019 7:09 PM
[2019-06-29] MEDS ORDERED: SODIUM CHLORIDE 0.9% 100 ML ONE (19:33)
[2019-06-29] MEDS ORDERED: IOPAMIDOL 370 MG/ML 200 ML INFUS..BTL INJ ONE (19:34)
[2019-06-29] MEDS: SIMVASTATIN 20 MG TAB PO SCH (21:11)
[2019-06-29] MEDS: NIFEDIPINE CR 30 MG TAB PO SCH (21:12)
[2019-06-30] VITALS (9 sets, daily range): BP systolic 130–154; BP diastolic 63–72
--- NOTE | 2019-06-30 02:36 | Consultation ---
DATE OF CONSULTATION: 06/29/2019 HISTORY OF PRESENT ILLNESS: An 83-year-old female with history of dementia, who was admitted after falling at home and after having a syncopal spell. The patient was admitted on the 2nd of this month. Yesterday, the patient was noted to be very confused and disoriented and very agitated and as such Neurology consultation was placed for AMS. She is being treated for UTI and osteoarthritis as well as dizziness. Her admitting diagnosis includes syncope and UTI. Her syncope was attributed to orthostatic hypotension. Her syncopal spell usually associated with feeling dizzy like fainting and then hitting the floor. No abnormal convulsions are reported. PAST MEDICAL HISTORY: Hypertension, heart disease, hypothyroidism, UTI, GERD, hyperlipidemia, osteoarthritis, ovarian cancer, gout, osteoporosis, and neuropathy. PAST SURGICAL HISTORY: Hysterectomy, knee replacement, renal artery stent placement. ALLERGIES: ALLERGIC TO VERN INHIBITORS, PENICILLIN, CODEINE, DIPHENHYDRAMINE, BACTRIM. SOCIAL HISTORY: No alcohol abuse recently. No smoking. FAMILY HISTORY: Hypertension. MEDICATIONS: Per medication list and chart. REVIEW OF SYSTEMS: Fourteen point attempted, but not able to complete. PHYSICAL EXAMINATION: VITAL SIGNS: Temperature 98, pulse rate 88, respiratory rate is 16, blood pressure 115/87. HEAD AND NECK: No meningeal signs. LUNGS: Bilateral rales. HEART: Regular heart rhythm. ABDOMEN: Soft. NEUROLOGIC: She has cognitive impairment, obvious difficulty with concentrating and executive function and memory and she perseverates. She seems slow and however, there is no dysarthria, no lateralizing weakness, but she is generally weak. She has abnormal gait. Sensory could not be tested. Fine motor movements were okay. Deep tendon reflexes were 2+. Plantars are bilaterally extensor. ASSESSMENT: An 83-year-old female with multiple medical issues including atrial fibrillation, hypertension, heart disease, urinary tract infection, hypothyroidism, admitted with syncope, who was noted to be very confused and as such Neurology consult was placed. Her exam is notable for cognitive impairment as well as ataxia and hyperreflexia. While the most likely etiology for her encephalopathy is toxic metabolic encephalopathy on top of her dementia, however, again pathology cannot be ruled out. Obviously, her atrial fibrillation put her at high risk for stroke. RECOMMENDATION: We will obtain MRI of the brain and make further recommendations. The patient should be on anticoagulated considering her atrial fibrillation. If no contraindications, high dose statins with an LDL less than 70. Also suggest checking a thiamine level on her and loading her with thiamine and maintaining it. Her syncopal spell is most likely related to orthostatic hypotension and dehydration versus superimposed autonomic irregularity. It is not typical of epilepsy and hence an EEG is not necessary. The patient will be as mentioned on thiamine and above medications. As far as her dementia, I just started her on Exelon instead of Aricept and maybe adding later Namenda. Also, I need to check a vitamin B12 level, TSH, RPR, sedimentation rate, lipid profile, hemoglobin A1c, if not done already. We will keep her on neuro checks and make further recommendations based on the MRI of the brain. Ever Rolle MD AM/GROVER /[id number]
[2019-06-30 05:41] LABS: BASOPHILS # (AUTO) 0.1 (0.0-0.1); BASOPHILS % 0.9 % (0.0-1.0); EOSINOPHILS # (AUTO) 0.6 (0.0-0.4); HEMATOCRIT 32.7 % (34.2-44.1); LYMPHOCYTES # (AUTO) 1.5 (1.0-3.2); LYMPHOCYTES % 27.9 % (18.0-39.1); MEAN CORPUSCULAR HEMOGLOBIN 30.1 pg (28-32); MEAN CORPUSCULAR HGB CONC 33.6 g/dL (31-35); MEAN CORPUSCULAR VOLUME 89.3 fL (81-99); MONOCYTES # (AUTO) 0.6 (0.2-0.8); MONOCYTES % 11.2 % (4.4-11.3); NEUTROPHILS # (AUTO) 2.7 (2.1-6.9); NEUTROPHILS % 48.6 % (38.7-80.0); PLATELET COUNT 233 x10e3/uL (140-360); RED BLOOD COUNT 3.66 x10e6/uL (3.6-5.1); RED CELL DISTRIBUTION WIDTH 12.7 % (11.7-14.4)
[2019-06-30 06:05] LABS: ALBUMIN 2.6 g/dL (3.5-5.0); ALBUMIN/GLOBULIN RATIO 0.7 (0.8-2.0); ANION GAP 13.5 mmol/L (8-16); CALCIUM 8.9 mg/dL (8.4-10.2); CREATININE, SERUM 1.23 mg/dL (0.57-1.11); POTASSIUM 3.5 mmol/L (3.5-5.1)
[2019-06-30] MEDS: CEFTRIAXONE SOD 1 GM/NS 50 ML 50 ML IV SCH ×2 (08:42→21:00)
[2019-06-30] MEDS: GABAPENTIN 100 MG CAP PO SCH ×3 (08:45→21:00)
[2019-06-30] MEDS: ASPIRIN 81 MG CHEW TAB PO SCH (08:45)
[2019-06-30] MEDS: THIAMINE HCL INJ 100 MG/ML 2ML VIAL IV SCH (08:48)
[2019-06-30] MEDS: OMEGA 3 POLYUNSAT FATTY ACIDS 1000 MG SOFTGEL PO SCH (08:48)
[2019-06-30] MEDS: LEVOTHYROXINE SODIUM 75 MCG TAB PO SCH (08:56)
[2019-06-30] MEDS: FAMOTIDINE 20 MG TAB PO SCH ×2 (08:56→16:26)
[2019-06-30] MEDS: PANTOPRAZOLE SOD 40 MG TABEC PO SCH ×2 (08:56→16:26)
[2019-06-30] MEDS ORDERED: THIAMINE HCL INJ 100 MG in SODIUM CHLORIDE 0.9% 50ML 50 ML IV SCH (09:00)
--- NOTE | 2019-06-30 10:23 | Progress Note ---
DATE: 06/30/2019 Cardiology Progress Note SUBJECTIVE: The patient found sleeping comfortably, confused, cannot provide me review of systems. OBJECTIVE: VITAL SIGNS: Temperature is 97.3, heart rate is 52, respirations are 20, blood pressure is 154/70, and oxygen saturation 96% on room air. GENERAL: She is an elderly woman, lying comfortably in bed, sleeping, mild confusion. CARDIOVASCULAR: She is bradycardic. Regular rhythm. LUNGS: Clear to auscultation. ABDOMEN: Soft, nontender, and nondistended. EXTREMITIES: No edema. LABORATORY DATA: Reviewed. Creatinine is 1.23. Potassium 3.5. TELEMETRY: Monitoring revealed sinus bradycardia. IMPRESSION: 1. Paroxysmal atrial fibrillation, now with sinus bradycardia. 2. Syncope. 3. Dehydration. 4. Urinary tract infection. 5. Delirium. 6. Confusion. RECOMMENDATIONS: Continue infectious treatment per primary team. We will discontinue her metoprolol as she is bradycardic and this can exacerbate her lethargy. Delirium and confusion treatment per primary and Neurology teams. Continue to monitor on telemetry. We will continue to follow along with you. No anticoagulation at this point in time given confusion and fall risk. Can proceed with just aspirin alone. Natan Angel DO BM/MODL /[id number]
[2019-06-30] MEDS ORDERED: RISPERIDONE 0.5 MG TAB PO PRN (12:15)
[2019-06-30] MEDS ORDERED: HALOPERIDOL LACTATE 5 MG/ML VIAL IM PRN (12:15)
--- NOTE | 2019-06-30 13:29 | Progress Note ---
DATE: 06/30/2019 Psychiatric Progress Note SUBJECTIVE: The patient is in the room with . She is not eating much. The patient is not having any agitation at this time. She is not having any hallucination. Her appetite has been very poor. As per the , she is sleeping fair. She received Ativan p.r.n. IM yesterday around 1. The patient states she is doing well. No agitation seen. As per the , the patient has been diagnosed with dementia since last 6 months. She appears to be more confused from the baseline as per the family. ASSESSMENT: 1. Unspecified psychosis. 2. Unspecified dementia with behavior disturbances. PLAN: 1. Reduce Haldol from 2 mg IM q.6 hours p.r.n. to 1 mg IM q.6 hours p.r.n. 2. Discontinue Zyprexa p.r.n. IM. 3. Continue with Ativan p.r.n. IM. 4. Add small dose of Risperdal at night time 0.25 mg p.o. at bedtime. 5. Continue Neurontin 100 mg p.o. 3 times a day. 6. Monitor for mood. 7. Supportive therapy. 8. Add Risperdal p.r.n. p.o. Dictated by Leelee Trejo PA-C Jh Mcarthur MD QTV/MODL /[id number]
[2019-06-30] MEDS: MONTELUKAST SODIUM 10 MG TAB PO SCH (20:15)
[2019-06-30] MEDS ORDERED: OLANZAPINE 5 MG TAB PO SCH (21:00)
[2019-06-30] MEDS: SIMVASTATIN 20 MG TAB PO SCH (21:00)
[2019-06-30] MEDS ORDERED: RISPERIDONE 0.5 MG TAB PO SCH (21:00)
[2019-06-30] MEDS: NIFEDIPINE CR 30 MG TAB PO SCH (21:00)
[2019-06-30] MEDS ORDERED: SODIUM CHLORIDE 0.9% 250ML 250 ML ONE (21:08)
[2019-07-01] VITALS (7 sets, daily range): BP systolic 129–158; BP diastolic 61–68
--- NOTE | 2019-07-01 00:07 | Progress Note ---
DATE: 06/30/2019 SUBJECTIVE: The patient is still confused. Does not recall very well. She is hallucinating. OBJECTIVE: VITAL SIGNS: Temperature 98, respiratory rate 16, pulse rate 80, and blood pressure 121/67. HEAD AND NECK: No meningeal signs. LUNGS: Good air entry. ABDOMEN: Soft. EXTREMITIES: Edema. NEUROLOGIC: The patient is confused. She is not hallucinating actively. Memory difficulty. Cognitive impairment. No lateralized weakness. However, she has ataxia and hyperreflexia. Plantars were extensor. Gait apraxia. Sensory could not be tested. ASSESSMENT: 1. Pontine diffusion restriction lesions, probably metabolic versus some vitamin deficiency related. Thiamine being replaced. We will check thiamine level on followup, replace as needed. Correction of metabolic abnormalities of sodium slowly, . 2. Encephalopathy on top of chronic dementia process. Her dementia seems atypical and she could have atypical dementia probably of the Lewy body type. We will start Exelon and titrate. 3. Avoid antipsychotics as they might make her worse. 4. Avoid antipsychotics, especially conventional. 5. The patient has history of atrial fibrillation and as such, she needs to be long-term anticoagulated. There is no contraindication neuro rey for anticoagulation. 6. Continue with antiplatelet therapy. Her CTAs of the head and neck were reviewed. She has asymptomatic disease at this point. 7. History of recurrent syncope, probably cardiovascular. 8. Atrial fibrillation. 9. Coronary artery disease. 10. Urinary tract infections. 11. Hypothyroidism. 12. We will check the rest of the titers as well as vitamin B12 level, TSH, RPRs, sedimentation rate, and thiamine level. Replace thiamine and vitamins as needed. Hydrate. Discussed with family at bedside extensively. Answered all questions of the patient. Ever Rolle MD AM/GROVER /[id number]
[2019-07-01] MEDS: PANTOPRAZOLE SOD 40 MG TABEC PO SCH ×2 (06:21→16:44)
[2019-07-01] MEDS: LEVOTHYROXINE SODIUM 75 MCG TAB PO SCH (06:21)
[2019-07-01] MEDS: FAMOTIDINE 20 MG TAB PO SCH ×2 (06:21→16:44)
[2019-07-01 06:36] LABS: ALBUMIN 2.4 g/dL (3.5-5.0); ALBUMIN/GLOBULIN RATIO 0.7 (0.8-2.0); ANION GAP 12.6 mmol/L (8-16); CALCIUM 8.3 mg/dL (8.4-10.2); CREATININE, SERUM 1.09 mg/dL (0.57-1.11); POTASSIUM 3.6 mmol/L (3.5-5.1)
[2019-07-01] MEDS: CEFTRIAXONE SOD 1 GM/NS 50 ML 50 ML IV SCH ×2 (08:15→21:18)
[2019-07-01] MEDS: THIAMINE HCL INJ 100 MG/ML 2ML VIAL IV SCH (08:15)
[2019-07-01] MEDS: OMEGA 3 POLYUNSAT FATTY ACIDS 1000 MG SOFTGEL PO SCH (08:16)
[2019-07-01] MEDS: ASPIRIN 81 MG CHEW TAB PO SCH (08:16)
[2019-07-01] MEDS: GABAPENTIN 100 MG CAP PO SCH ×3 (08:16→21:18)
[2019-07-01] MEDS: MONTELUKAST SODIUM 10 MG TAB PO SCH (16:44)
[2019-07-01] MEDS: SIMVASTATIN 20 MG TAB PO SCH (21:19)
[2019-07-01] MEDS: NIFEDIPINE CR 30 MG TAB PO SCH (21:19)
[2019-07-01] MEDS ORDERED: RISPERIDONE 0.5 MG TAB PO SCH (21:30)
--- NOTE | 2019-07-01 23:12 | Progress Note ---
DATE: 07/01/2019 Psychiatric Progress Note SUBJECTIVE: The patient evaluated and events noted. The patient is in the room. She is calm, but she is pleasantly confused. She received p.r.n. Haldol last night. She denies any anxiety or depression. She denies any hallucination. She denies any suicidal or homicidal ideation. She denies any side effects to medication. Discussed with nursing staff, who report the patient is calm at this time. ASSESSMENT: 1. Unspecified psychosis. 2. Unspecified dementia with behavior disturbances. PLAN: 1. To increase Risperdal to 0.5 mg p.o. every night at bedtime. 2. Continue with Risperdal p.r.n. p.o. 3. Continue Haldol p.r.n. IM. 4. Continue Neurontin. 5. Monitor for agitation. Dictated by Leelee Trejo PA-C Jh Mcarthur MD QTV/GROVER /[id number]
[2019-07-02] VITALS: BP 138/63
[2019-07-02 04:00] VITALS: BP 145/67
[2019-07-02] MEDS: PANTOPRAZOLE SOD 40 MG TABEC PO SCH (06:28)
[2019-07-02] MEDS: FAMOTIDINE 20 MG TAB PO SCH (06:28)
[2019-07-02] MEDS: LEVOTHYROXINE SODIUM 75 MCG TAB PO SCH (06:28)
[2019-07-02 07:30] VITALS: BP 159/69
[2019-07-02 07:58] VITALS: BP 159/69
[2019-07-02] MEDS: CEFTRIAXONE SOD 1 GM/NS 50 ML 50 ML IV SCH (08:58)
[2019-07-02] MEDS: THIAMINE HCL INJ 100 MG/ML 2ML VIAL IV SCH (08:58)
[2019-07-02] MEDS: OMEGA 3 POLYUNSAT FATTY ACIDS 1000 MG SOFTGEL PO SCH (08:59)
[2019-07-02] MEDS: GABAPENTIN 100 MG CAP PO SCH (08:59)
[2019-07-02] MEDS: DOCUSATE SODIUM 100 MG CAP PO PRN (08:59)
[2019-07-02] MEDS: ASPIRIN 81 MG CHEW TAB PO SCH (08:59)
[2019-07-02 11:08] VITALS: BP 148/69
--- NOTE | 2019-07-03 00:57 | Progress Note ---
DATE: 07/02/2019 SUBJECTIVE: The patient is stable, normal changes. MEDICATIONS: Par MAR. OBJECTIVE: VITAL SIGNS: Temperature 97, respiratory rate 16, pulse rate 80, blood pressure 121/60. HEAD AND NECK: No meningeal signs. ABDOMEN: Soft. EXTREMITIES: No edema. NEUROLOGIC: Alert. Follows commands. No lateralizing weakness. ASSESSMENT: 1. Atrial fibrillation. 2. Pontine stroke. 3. . 4. Dementia, atypical, possibly Lewy body. Avoid conventional antipsychotics. 5. History of syncope. 6. Coronary artery disease. 7. Urinary tract infection. 8. Hypothyroidism. RECOMMENDATIONS: Continue thiamine and vitamin replacement Ever Rolle MD AM/GROVER /[id number]
--- NOTE | 2019-07-03 00:57 | Progress Note ---
DATE: 07/01/2019 SUBJECTIVE: The patient is less confused. No hallucinations today. MEDICATIONS: Per JUL. PHYSICAL EXAMINATION: VITAL SIGNS: Temperature 98.1, respiratory rate 12, pulse rate 70, blood pressure 131/77. HEAD AND NECK: No meningeal signs. LUNGS: Good air entry. ABDOMEN: Soft. EXTREMITIES: Pulses present. NEUROLOGIC: The patient is confused. No hallucinations. Cognitive impairment. No lateralized weakness, ataxia. ASSESSMENT: 1. MRI changes of unclear significance. Replace thiamine and correct metabolic abnormalities. 2. Encephalopathy on top of atypical dementia probably Lewy body disease Exelon started, titrate up the line. Avoid antipsychotics, especially conventional. 3. History of atrial fibrillation. Long-term anticoagulation and because of the stroke, she needs to be also on high dose statins with LDL less than 70. 4. Hypothyroidism. 5. UTI. 6. Atrial fibrillation. 7. Coronary artery disease. 8. History of syncope. Recommend as above direct metabolic abnormalities . Ever Rolle MD AM/GROVER /[id number]
--- NOTE | 2019-07-03 05:33 | Discharge Summary ---
IDENTIFICATION: The patient is an 83-year-old female patient of mine who presented to the emergency room with syncope. ADMITTING IMPRESSION DIAGNOSES: 1. Near syncope. 2. Atrial fibrillation with rapid ventricular rate. 3. History of hypertension. 4. Renal artery stenosis. 5. History of Alzheimer's dementia. HOSPITAL COURSE: The patient was admitted with the above diagnoses. Patient had a cardiology consultation and trigger release Lovenox was given and patient had beta jerson given, metoprolol and patient had converted into the sinus rhythm spontaneously. Inpatient heart rate was controlled. The patient was doing better but then suddenly patient became very confused and disoriented and very agitated. So, patient was given IV lorazepam to calm her down because patient was getting very aggressive and violent. Hence, Psychiatry and Neurology consultation was done. The neurologist recommended IV thiamine. The patient was given neuroleptic Haldol and Geodon from the psychiatrist. With the above treatment, the patient did improve significantly, but the patient continued to have underlying dementia. Discharge planning was planned with the patient and family. We have discussed about transferring to the [facility]. The patient had a fight for it and refused it and with the team plan, we have to send her home with home provider with the care and the patient was advised to follow up with a neurologist as outpatient and new medicine was started. Thiamine and folic acid and Exelon was started and Aricept was stopped. For UTI antibiotic, cephalexin was given. The patient in the hospital was given Rocephin IV for UTI and metabolic encephalopathy. DISCHARGE DIAGNOSES: 1. Atrial fibrillation with rapid rate. 2. Syncope. 3. Acute delirium. 4. Metabolic encephalopathy because of the urinary tract infection. 5. No sepsis. 6. Advanced dementia. MD BURAK Merritt/MODL /[id number]
== END 2019-07-02 13:50 | disposition home or self-care (01) | DRG 689 ==
LOC: ER 08:00 → ERHOLD 09:43 → MED/SURG3 15:36 → OBSVTOIN 16:13
PROVIDERS: ADMIT Internal Medicine; ATTEND Internal Medicine
DX: N39.0 Urinary tract infection, site not specified (principal); G93.41 Metabolic encephalopathy; F02.81 Dementia in other diseases classified elsewhere, unspecified severity, with behavioral disturbance; F05 Delirium due to known physiological condition; I48.0 Paroxysmal atrial fibrillation; Z79.01 Long term (current) use of anticoagulants; I70.1 Atherosclerosis of renal artery; G30.9 Alzheimer's disease, unspecified; I10 Essential (primary) hypertension; M19.90 Unspecified osteoarthritis, unspecified site; E03.9 Hypothyroidism, unspecified; E86.0 Dehydration; M81.0 Age-related osteoporosis without current pathological fracture; Z85.43 Personal history of malignant neoplasm of ovary; E11.40 Type 2 diabetes mellitus with diabetic neuropathy, unspecified; M10.9 Gout, unspecified
CPT/HCPCS: 36415; 70450; 70496; 70498; 70551; 71045; 80053; 80061; 81001; 82140; 82550; 82553; 83605; 83880; 84425; 84484; 85025; 87040; 87086; 93005; 93306; 97139; 99284; J0696; J1630; J1650; J2060; J3360; J3411; J3486; J7040; J7050; J7121; Q9967

== ENCOUNTER → 2019-07-16 | Day surgery (SDC) | payer MEDICARE ==
[2019-07-15 14:29] LABS: BASOPHILS # (AUTO) 0.1 (0.0-0.1); BASOPHILS % 0.6 % (0.0-1.0); EOSINOPHILS # (AUTO) 0.2 (0.0-0.4); EOSINOPHILS % 1.8 % (0.0-6.0); HEMATOCRIT 34.2 % (34.2-44.1); HEMOGLOBIN 11.2 g/dL (12.0-16.0); LYMPHOCYTES # (AUTO) 1.6 (1.0-3.2); LYMPHOCYTES % 19.3 % (18.0-39.1); MEAN CORPUSCULAR HEMOGLOBIN 30.4 pg (28-32); MEAN CORPUSCULAR HGB CONC 32.7 g/dL (31-35); MEAN CORPUSCULAR VOLUME 92.9 fL (81-99); MONOCYTES # (AUTO) 0.9 (0.2-0.8); MONOCYTES % 10.2 % (4.4-11.3); NEUTROPHILS # (AUTO) 5.7 (2.1-6.9); NEUTROPHILS % 67.7 % (38.7-80.0); PLATELET COUNT 273 x10e3/uL (140-360); RED BLOOD COUNT 3.68 x10e6/uL (3.6-5.1); RED CELL DISTRIBUTION WIDTH 13.2 % (11.7-14.4)
[2019-07-15 14:47] LABS: ANION GAP 12.1 mmol/L (8-16); CALCIUM 9.4 mg/dL (8.4-10.2); CREATININE, SERUM 1.16 mg/dL (0.57-1.11); POTASSIUM 4.1 mmol/L (3.5-5.1)
--- NOTE | 2019-07-15 15:00 | Diagnostic Imaging Report ---
EXAMINATION: CHEST 2 VIEWS INDICATION: ^PREOP ^[id number] ^1430 COMPARISON: None FINDINGS: PA and lateral views TUBES and LINES: None. LUNGS: Lungs are well inflated. Lungs are clear. There is no evidence of pneumonia or pulmonary edema. PLEURA: No pleural effusion or pneumothorax. HEART AND MEDIASTINUM: The cardiomediastinal silhouette is unremarkable. The thoracic aorta is mildly tortuous. BONES AND SOFT TISSUES: No acute osseous lesion. Soft tissues are unremarkable. UPPER ABDOMEN: No free air under the diaphragm. IMPRESSION: No acute thoracic radiographic abnormality. Signed by: Mau Conner MD on 07/15/2019 2:58 PM
[~2019-07-16] MED LIST changes: +ATROPINE SULFATE 1 MG/ML VIAL ONE; +BUPIVACAINE 0.25% 30ML SDV INJ ONE; +DEXAMETHASONE SOD PHOS INJ 4 MG/ML VIAL ONE; +FENTANYL CITRATE/PF 100MCG/2 ML INJ ONE; +LIDOCAINE 1% W/EPINEPHRINE 20 ML VIAL ONE; +LIDOCAINE HCL 2% 30 ML TUBE ONE; +LIDOCAINE HCL 2% LOCAL INJ 5 ML SDV VIAL INJ ONE; +ONDANSETRON HCL INJ 2MG/ML 2ML 2 MG/ML VIAL ONE; +PROPOFOL IV EMULSION 10 MG/ML 20 ML VIAL ONE; +SEVOFLURANE INHAL SOLN 250 ML PEN BTL ONE
[2019-07-16 13:45] VITALS: BP 168/76
--- NOTE | 2019-07-16 19:42 | Operative Report ---
DATE OF PROCEDURE: 07/16/2019 SURGEON: Alexander Crowder MD PREOPERATIVE DIAGNOSIS: Perirectal abscess. POSTOPERATIVE DIAGNOSIS: Perirectal abscess. OPERATION PERFORMED: Incision and drainage of perirectal abscess and fistulectomy. ANESTHESIA: General. COMPLICATIONS: None. ESTIMATED BLOOD LOSS: Minimal. DESCRIPTION OF PROCEDURE: With the patient lying in bed in the lithotomy position under good general anesthesia. The perineum was prepped with Betadine solution and draped in the usual manner. Examination at this point revealed bulging abscess at the 2 o'clock position. An incision was made into the abscess and immediately some purulent material was encountered. A fistula probe easily fell into the internal opening and the whole thing was then full laid open and debrided. After this was done, the whole area was then infiltrated with 0.25% Marcaine with epinephrine and a good block was obtained. Hemostasis was ascertained and a Gelfoam pack was then placed. Dressing was applied. The sponge, lap, and needle count was correct. The patient tolerated the procedure well and returned to the recovery room in stable condition. Alexander Crowder MD JLR/MODL /[id number]
== END | disposition home or self-care (01) ==
LOC: OR 09:52
PROVIDERS: ATTEND Surgery
DX: K61.1 Rectal abscess (principal); I10 Essential (primary) hypertension; I48.91 Unspecified atrial fibrillation; I49.5 Sick sinus syndrome; E03.9 Hypothyroidism, unspecified; Z88.0 Allergy status to penicillin; Z01.812 Encounter for preprocedural laboratory examination; Z01.818 Encounter for other preprocedural examination
CPT/HCPCS: 36415; 46270; 71046; 80048; 85025; J0461; J1100; J2001; J2405; J2704

== ENCOUNTER 2019-07-24 18:01 | Emergency (ER) | payer MEDICARE ==
[~2019-07-24] VITALS: Ht 163.8 cm; Wt 63.5 kg
[~2019-07-24 18:01] MED LIST changes: -ATROPINE SULFATE 1 MG/ML VIAL ONE; -BUPIVACAINE 0.25% 30ML SDV INJ ONE; -DEXAMETHASONE SOD PHOS INJ 4 MG/ML VIAL ONE; -FENTANYL CITRATE/PF 100MCG/2 ML INJ ONE; -LIDOCAINE 1% W/EPINEPHRINE 20 ML VIAL ONE; -LIDOCAINE HCL 2% 30 ML TUBE ONE; -LIDOCAINE HCL 2% LOCAL INJ 5 ML SDV VIAL INJ ONE; -ONDANSETRON HCL INJ 2MG/ML 2ML 2 MG/ML VIAL ONE; -PROPOFOL IV EMULSION 10 MG/ML 20 ML VIAL ONE; -SEVOFLURANE INHAL SOLN 250 ML PEN BTL ONE
[2019-07-24] MEDS ORDERED: NITROGLYCERIN 0.4 MG SUBL ONE (18:21)
[2019-07-24 18:28] LABS: BASOPHILS # (AUTO) 0.1 (0.0-0.1); BASOPHILS % 0.6 % (0.0-1.0); EOSINOPHILS # (AUTO) 0.3 (0.0-0.4); EOSINOPHILS % 4.2 % (0.0-6.0); HEMOGLOBIN 11.4 g/dL (12.0-16.0); LYMPHOCYTES # (AUTO) 2.3 (1.0-3.2); LYMPHOCYTES % 29.5 % (18.0-39.1); MEAN CORPUSCULAR HEMOGLOBIN 29.7 pg (28-32); MEAN CORPUSCULAR HGB CONC 32.6 g/dL (31-35); MEAN CORPUSCULAR VOLUME 91.1 fL (81-99); MONOCYTES # (AUTO) 0.8 (0.2-0.8); MONOCYTES % 9.8 % (4.4-11.3); NEUTROPHILS # (AUTO) 4.4 (2.1-6.9); NEUTROPHILS % 55.4 % (38.7-80.0); PLATELET COUNT 260 x10e3/uL (140-360); RED BLOOD COUNT 3.84 x10e6/uL (3.6-5.1); RED CELL DISTRIBUTION WIDTH 13.4 % (11.7-14.4)
--- NOTE | 2019-07-24 18:32 | Diagnostic Imaging Report ---
EXAMINATION: CHEST SINGLE (PORTABLE) COMPARISON: Chest x-ray 07/15/2019 INDICATION: Chest pain ^ERMD ORDER ^[id number] ^1820 ^Y DISCUSSION: Frontal view of the chest obtained at 1813 hours. HEART AND MEDIASTINUM: The cardiomediastinal silhouette is unremarkable. LINES: None. LUNGS: Diffuse hyperinflation. Bilateral upper lobe reticulation/scarring is stable. No pneumonia or pulmonary edema. PLEURA: No pleural effusion or pneumothorax. BONES AND SOFT TISSUES: No focal osseous lesion. The soft tissues are normal. IMPRESSION: Stable pulmonary hyperinflation. No acute cardiopulmonary process. Signed by: Dr. Louis Campbell MD on 07/24/2019 6:29 PM
[2019-07-24 18:36] LABS: INR 0.96; PROTHROMBIN TIME 13.4 seconds (11.9-14.5)
[2019-07-24 18:37] LABS: PARTIAL THROMBOPLASTIN TIME 25.9 seconds (23.8-35.5)
[2019-07-24 18:47] LABS: ALBUMIN 3.1 g/dL (3.5-5.0); ALBUMIN/GLOBULIN RATIO 0.9 (0.8-2.0); ANION GAP 11.9 mmol/L (8-16); CALCIUM 9.5 mg/dL (8.4-10.2); CREATININE, SERUM 1.11 mg/dL (0.57-1.11); POTASSIUM 3.9 mmol/L (3.5-5.1)
[2019-07-24 18:53] LABS: CREATINE KINASE MB 0.8 ng/mL (0-5.0)
[2019-07-24] MEDS ORDERED: SODIUM CHLORIDE 0.9% 1000ML 1,000 ML IV SCH (19:15)
[2019-07-24] MEDS ORDERED: SODIUM CHLORIDE 0.9% 100 ML ONE (19:36)
[2019-07-24] MEDS ORDERED: IOPAMIDOL 370 MG/ML 200 ML INFUS..BTL INJ ONE (19:36)
[2019-07-24 19:51] LABS: CLARITY,URINE CLEAR (CLEAR); COLOR,URINE YELLOW (YELLOW)
[2019-07-24 19:52] LABS: BACTERIA,URINE RARE /HPF; BILIRUBIN,URINE NEGATIVE (NEGATIVE); KETONES,URINE NEGATIVE (NEGATIVE); LEUKOCYTE ESTERASE ,URINE NEGATIVE (NEGATIVE); NITRITE,URINE NEGATIVE (NEGATIVE); PROTEIN,URINE DIPSTICK NEGATIVE (NEGATIVE); URINE UROBILINOGEN 0.2 mg/dL (0.2 - 1); WBC,URINE (MAN) 0-5 /HPF (0-5)
[2019-07-24] MEDS ORDERED: HYDRALAZINE HCL 20 MG/ML VIAL IV STA (20:25)
[2019-07-24] MEDS ORDERED: HYDRALAZINE HCL 20 MG/ML VIAL ONE (20:36)
[2019-07-24 20:41] LABS: EPITHELIAL CELLS,URINE FEW /LPF
--- NOTE | 2019-07-24 21:31 | Diagnostic Imaging Report ---
EXAMINATION: CT angiography of the chest, abdomen and pelvis with contrast. TECHNIQUE: Spiral CT images of the chest, abdomen and pelvis were performed from the lung apices to the lesser trochanters after the intravenous administration of 100 cc of Isovue 370. Coronal and sagittal reformatted images were obtained. COMPARISON: Chest radiograph 07/24/2019, CT abdomen and pelvis 04/15/2019 CLINICAL HISTORY:Concern for aortic dissection, sudden onset chest pain DISCUSSION: CHEST: Vasculature: Atherosclerotic calcification of the [place] coronary arteries, aortic arch, and great vessel origins which are otherwise normal in caliber and configuration. There is no ectasia or aneurysmal dilatation of the ascending thoracic aorta. There is short segment focal ectasia of the distal descending thoracic aorta (2.8 cm as seen on coronal image 59. There is no dissection or pseudoaneurysm. Mild calcified and noncalcified atherosclerotic plaque along the course of the thoracoabdominal aorta. Celiac axis, SMA, and [place] origins are patent. Patent left renal artery stent. Moderate right renal artery ostial stenosis. The abdominal aorta is nonaneurysmal. Left hepatic artery is replaced to the left gastric artery area hepatic artery anatomy otherwise conventional. LUNGS AND AIRWAYS: Groundglass opacities with smooth interlobular septal thickening throughout the lungs, more conspicuous in the dependent lower lobes, compatible with interstitial edema. No airspace consolidation or bronchiectasis. Trachea, mainstem bronchi, and central lobar and segmental bronchi are patent. PLEURA: The pleural spaces are clear. HEART AND MEDIASTINUM: The left thyroid lobe is hypoplastic or may have been removed. No axillary, hilar, or mediastinal lymphadenopathy. This study was not optimized for detection of pulmonary embolic disease; however, no central filling defect within the main, right, or left pulmonary artery. Large sliding hiatal hernia with an adjacent distal to esophageal lymph node likely reactive. LYMPH NODES: No significant mediastinal, hilar or axillary lymphadenopathy is seen. ABDOMEN/PELVIS: HEPATOBILIARY:No focal hepatic lesions. No intrahepatic biliary ductal dilation. The gallbladder is normal. SPLEEN: Calcified granuloma within the body of the spleen. PANCREAS: No focal masses or ductal dilatation. ADRENALS: No adrenal nodules. KIDNEYS/URETERS: Bilateral simple cysts in the kidneys, measuring up to 2.3 cm on the left and 5 cm on the right. All measurable lesions have average internal attenuation less than 20 Hounsfield units. Additional smaller subcentimeter hypoattenuating lesions throughout both kidneys are too small to further characterize but likely to represent additional small cysts. PELVIC ORGANS/BLADDER: Urinary bladder, is unremarkable. The uterus is not identified and has presumably been removed. No adnexal mass. PERITONEUM/RETROPERITONEUM: No ascites or pneumoperitoneum. LYMPH NODES: No pelvic sidewall, retroperitoneal, or mesenteric lymphadenopathy. Mild prominent mandi hepatis lymph node are unchanged. VESSELS: As above. GI TRACT: The large bowel is notable for innumerable diverticula along the descending and sigmoid colon without wall thickening or adjacent inflammatory change. Appendix is not definitively identified. No right lower quadrant or right hemipelvic inflammatory process. No small bowel dilatation to suggest obstruction. BONES AND SOFT TISSUES: Osteopenia. Bone island in the left parasymphyseal region. Multilevel degenerative disc disease and facet arthropathy of the thoracolumbar spine. Degenerative changes of the acromioclavicular and glenohumeral joints. No focal soft tissue abnormalities. Multiple calcified injection granulomata in the bilateral gluteal contains fat. Coarse right breast calcifications versus surgical clip. IMPRESSION: No acute aortic pathology. Specifically, no aortic dissection. 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 Remaining visceral branch origins are widely patent. 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 Groundglass opacities and interlobular septal thickening suggests mild interstitial pulmonary edema. Otherwise no acute intrathoracic, abdominal, or pelvic CT abnormalities. Incidental findings include a large sliding hiatal hernia, bilateral simple renal cysts, and large bowel diverticulosis without evidence of diverticulitis. Signed by: Dr. Jorge Zimmerman M.D. on 07/24/2019 9:28 PM
[2019-07-24 22:55] LABS: CREATINE KINASE MB 0.4 ng/mL (0-5.0)
[2019-07-24 23:23] VITALS: BP 146/65
== END 2019-07-24 23:33 | disposition home or self-care (01) ==
LOC: ER 18:01
DX: R07.89 Other chest pain (principal); I10 Essential (primary) hypertension; F03.90 Unspecified dementia, unspecified severity, without behavioral disturbance, psychotic disturbance, mood disturbance, and anxiety; E03.9 Hypothyroidism, unspecified; K21.9 Gastro-esophageal reflux disease without esophagitis; M10.9 Gout, unspecified
CPT/HCPCS: 36415; 71045; 71275; 74174; 80053; 81001; 82550; 82553; 83880; 84484; 85025; 85610; 85730; 93005; 99284; J0360; J7030; J7050; Q9967

== ENCOUNTER 2019-08-30 18:31 | Inpatient (IN) | payer MEDICARE ==
[~2019-08-30] VITALS: Ht 165.1 cm; Wt 61.9 kg
[~2019-08-30 18:31] MED LIST changes: -PRESERVISION A1 EAC2 PEG; +PRESERVISION A1 EAC2 PO
[2019-08-30 19:05] LABS: BASOPHILS # (AUTO) 0.1 (0.0-0.1); BASOPHILS % 1.3 % (0.0-1.0); EOSINOPHILS # (AUTO) 0.6 (0.0-0.4); EOSINOPHILS % 8.2 % (0.0-6.0); HEMATOCRIT 35.4 % (34.2-44.1); HEMOGLOBIN 11.4 g/dL (12.0-16.0); LYMPHOCYTES # (AUTO) 2.1 (1.0-3.2); LYMPHOCYTES % 30.1 % (18.0-39.1); MEAN CORPUSCULAR HEMOGLOBIN 29.5 pg (28-32); MEAN CORPUSCULAR HGB CONC 32.2 g/dL (31-35); MEAN CORPUSCULAR VOLUME 91.7 fL (81-99); MONOCYTES # (AUTO) 0.7 (0.2-0.8); MONOCYTES % 9.5 % (4.4-11.3); NEUTROPHILS # (AUTO) 3.5 (2.1-6.9); NEUTROPHILS % 50.8 % (38.7-80.0); PLATELET COUNT 245 x10e3/uL (140-360); RED BLOOD COUNT 3.86 x10e6/uL (3.6-5.1); RED CELL DISTRIBUTION WIDTH 14.3 % (11.7-14.4)
[2019-08-30] MEDS ORDERED: HYDRALAZINE HCL 20 MG/ML VIAL IV STA (19:18)
[2019-08-30 19:22] LABS: ALANINE AMINOTRANSFERASE 13 IU/L (0-55); ALBUMIN 3.1 g/dL (3.5-5.0); ALBUMIN/GLOBULIN RATIO 0.9 (0.8-2.0); ALKALINE PHOSPHATASE 93 IU/L (40-150); ANION GAP 11.3 mmol/L (8-16); BLOOD UREA NITROGEN 22 mg/dL (7-26); BUN/CREATININE RATIO 18 (6-25); CALCIUM 9.1 mg/dL (8.4-10.2); CARBON DIOXIDE 22 mmol/L (22-29); CHLORIDE 112 mmol/L (98-107); CREATINE KINASE 46 IU/L (29-168); CREATININE, SERUM 1.19 mg/dL (0.57-1.11); EST GLOMERULAR FILTRATION RATE 44 ML/MIN (60-); GLUCOSE 91 mg/dL (74-118); POTASSIUM 4.3 mmol/L (3.5-5.1); SODIUM 141 mmol/L (136-145)
[2019-08-30 19:29] LABS: INR 0.89; PROTHROMBIN TIME 12.6 seconds (11.9-14.5)
--- NOTE | 2019-08-30 19:35 | Diagnostic Imaging Report ---
EXAMINATION: CHEST SINGLE (PORTABLE) INDICATION: ^CP NONE NOW ^[id number] ^1841 COMPARISON: CTA chest 07/24/2019 and chest radiograph 07/24/2019 FINDINGS: AP view TUBES and LINES: None. LUNGS: Lungs are well inflated. Bilateral interstitial edema, mildly decreased since prior exam. No new consolidations. PLEURA: No pleural effusion or pneumothorax. HEART AND MEDIASTINUM: Stable mild enlargement of the cardiac silhouette. Moderate calcifications of the aortic arch. BONES AND SOFT TISSUES: No acute osseous lesion. Soft tissues are unremarkable. UPPER ABDOMEN: No free air under the diaphragm. IMPRESSION: Bilateral interstitial edema, mildly improved since prior exam. No new consolidations. Signed by: Dr. Angelica Denton M.D. on 08/30/2019 7:32 PM
[2019-08-30 20:17] LABS: BILIRUBIN,URINE NEGATIVE (NEGATIVE); CLARITY,URINE CLEAR (CLEAR); COLOR,URINE YELLOW (YELLOW); KETONES,URINE NEGATIVE (NEGATIVE); LEUKOCYTE ESTERASE ,URINE NEGATIVE (NEGATIVE); NITRITE,URINE NEGATIVE (NEGATIVE); PROTEIN,URINE DIPSTICK NEGATIVE (NEGATIVE); URINE UROBILINOGEN 0.2 mg/dL (0.2 - 1)
--- NOTE | 2019-08-30 20:21 | NUR ---
TELEPHONED PTS FOR CLARIFICATION ON CARDIAC INFORMATION PT WAS TO HAVE PACEMAKER PLACED ON THE BUT IT WAS RESCHEDULED FOR THE August SO THE PT COULD WEAR A MONITOR FOR 2 WEEKS PRIOR TO SURGERY. 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
[2019-08-30 20:30] LABS: EPITHELIAL CELLS,URINE RARE /LPF; RBC,URINE 0-5 /HPF (0-5)
--- NOTE | 2019-08-30 21:41 | NUR ---
PT RESTING, VITAL SIGNS STABLE, PT VOICES NO COMPLAINTS AT THIS TIME, PT TO BE ADMITTED, PT AND AWARE OF POC,
[2019-08-30] MEDS ORDERED: HYDRALAZINE HCL 20 MG/ML VIAL IV PRN (22:00)
[2019-08-30] MEDS ORDERED: ONDANSETRON HCL INJ 2MG/ML 2ML 2 MG/ML VIAL IV PRN (22:00)
[2019-08-30] MEDS ORDERED: ACETAMINOPHEN 325 MG TAB PO PRN (22:15)
[2019-08-30] MEDS ORDERED: ACETAMINOPHEN 325 MG TAB ONE (22:25)
[2019-08-30 23:03] VITALS: BP 180/77
--- NOTE | 2019-08-30 23:24 | NUR ---
Received patient from ER. Patient awake and resting in bed, no s/s of distress at this time. Bed locked and in low position, alarm on, call light placed within reach. All safety measures in place. Will continue to monitor.
[2019-08-30 23:52] VITALS: BP 180/77
[2019-08-30 23:58] VITALS: BP 180/77
[2019-08-31] MEDS ORDERED: FLUCONAZOLE100 MG PO (00:29)
[2019-08-31] MEDS ORDERED: Folic acid PO (00:29)
[2019-08-31] MEDS ORDERED: NITROFURANTOIN100 MG PO (00:29)
[2019-08-31] MEDS ORDERED: LEVOTHYROXINE75 MCG PO (00:29)
[2019-08-31] MEDS ORDERED: DONEPEZIL HCL10 MG PO (00:29)
[2019-08-31] MEDS ORDERED: COQ-10100 MG PO (00:29)
[2019-08-31] MEDS ORDERED: B-1100 M1 PO (00:29)
[2019-08-31] MEDS ORDERED: MECLIZINE HCL12.5 MG PO (00:29)
[2019-08-31] MEDS ORDERED: MELOXICAM7.5 MG PO (00:29)
[2019-08-31] MEDS ORDERED: PROAIR DIGIHAL90 MCG INH (00:29)
[2019-08-31 03:22] LABS: CHOL/HDL RATIO 5.2 (3.0-3.6)
[2019-08-31 03:33] LABS: CREATINE KINASE 32 IU/L (29-168)
[2019-08-31 04:00] VITALS: BP 154/66
[2019-08-31 05:32] LABS: CREATINE KINASE 32 IU/L (29-168)
--- NOTE | 2019-08-31 07:11 | NUR ---
Bedside report given to day nurse. Patient resting in bed, no s/s of distress at this time. All safety measures in place.
[2019-08-31 07:35] VITALS: BP 134/76
[2019-08-31] MEDS: NYSTATIN 15 GM POWDER UD BTL TOP SCH ×2 (09:49→16:42)
[2019-08-31] MEDS ORDERED: BACITRACIN 50,000 UNIT VIAL ONE (10:00)
[2019-08-31] MEDS ORDERED: SODIUM CHLORIDE 0.9% 500ML 500 ML ONE (10:00)
[2019-08-31] MEDS ORDERED: LIDOCAINE HCL 2% LOCAL 20 ML VIAL ONE (10:00)
[2019-08-31] MEDS ORDERED: SODIUM CHLORIDE 0.9% 1000ML 2,000 ML ONE (10:01)
--- NOTE | 2019-08-31 10:30 | NUR ---
ASSESSMENT: Spiritual concern Pt anxious about upcoming procedure. Pt states she will have a procedure "in a few minutes." Pt identifies as Jainism. Intervention: Provided calming presence and empathic listening. Provided prayer and information on how to reach engineer fishing vessel, if needed. Outcome: Pt expressed appreciation for visit and support. No need to follow at this time. KELVIN SAWYER Regulatory Affairs Analyst Spiritual Care Department O: [phone]
[2019-08-31] MEDS ORDERED: VANCOMYCIN 1GM/NS 250 ML 250 ML ONE (10:51)
--- NOTE | 2019-08-31 11:00 | NUR ---
pt off unit for procedure.
[2019-08-31] MEDS: PANTOPRAZOLE SOD 40 MG TABEC PO SCH ×2 (11:15→23:15)
[2019-08-31] MEDS ORDERED: DOCUSATE SODIUM 100 MG CAP PO PRN (11:15)
[2019-08-31] MEDS ORDERED: ALBUTEROL SULFATE 0.09 MG INH PRN (11:15)
[2019-08-31] MEDS ORDERED: TRAMADOL HCL 50 MG TAB PO PRN (11:15)
[2019-08-31 11:17] VITALS: BP 147/80
[2019-08-31] MEDS ORDERED: HYDRALAZINE HCL 20 MG/ML VIAL ONE (11:59)
[2019-08-31] MEDS ORDERED: ALBUTEROL SULF 0.083% NEB SOLN 3 ML NEB NEB PRN (12:15)
--- NOTE | 2019-08-31 12:31 | History and Physical ---
CHIEF COMPLAINT: She is an 83-year-old female patient of mine, presented to the emergency room with chest pain. HISTORY OF PRESENT ILLNESS: Ms. Trini Dumont is an 83-year-old female patient with significant history of hypertension and hypothyroidism, cervical ovarian cancer, osteoporosis and dementia, presented to the emergency room with complaint of central chest pain, which was intermittent and pressure type of pain. The patient was scheduled to have a pacemaker placement at the other facility. REVIEW OF SYSTEMS: Detailed review of system examination done as per HPI. PAST MEDICAL HISTORY: Hypertension, hyperlipidemia, renal artery stent and ovarian cancer, hypothyroidism, and recurrent UTI, GERD, incontinent. PAST SURGICAL HISTORY: Hysterectomy and knee replacement and the patient had a renal artery stent. ALLERGIES: THE PATIENT IS ALLERGIC TO PENICILLIN. MEDICATIONS: See from the list. SOCIAL HISTORY: Denies smoking. Denies using alcohol. FAMILY HISTORY: Hypertension. PHYSICAL EXAMINATION: GENERAL: She is an elderly female patient lying in bed, not in any distress. VITAL SIGNS: Temperature 98, pulse rate 48, respiration rate 16, blood pressure 130/80. HEENT: Normocephalic, atraumatic. NECK: No JVD. No lymphadenopathy. LUNGS: Bilateral equal air entry. No rales, no rhonchi. HEART: S1, S2. Regular. Systolic murmur present. ABDOMEN: Soft. Bowel sounds are present. NEUROLOGIC: No focal neurological deficit. ADMITTING IMPRESSION AND DIAGNOSES: 1. Unstable angina. 2. Symptomatic bradycardia. 3. Hypertensive heart disease. 4. Urinary incontinence. 5. Recurrent urinary tract infection. 6. Alzheimer dementia. PLAN: The patient was admitted with above diagnosis. We will do serial EKG, cardiac enzymes and we will rule out OH. The patient is going for permanent pacemaker placement today and the patient was evaluated by Cardiology, Dr. Santos, and the pacemaker will be done by Dr. Medley. MD BURAK Merritt/GROVER /[id number]
--- NOTE | 2019-08-31 13:30 | NUR ---
pt return to unit pacemaker site clean and intact. pt vital signs stable. will cont to monitor. call light in reach.
--- NOTE | 2019-08-31 13:51 | Operative Report ---
DATE OF PROCEDURE: 08/31/2019 SURGEON: Olivia Medley MD PREPROCEDURE DIAGNOSES: 1. Sick sinus syndrome, severe. 2. Symptomatic nonreversible bradycardia. 3. Atrial fibrillation. 4. Hospital admission for bradycardia, previously seen in the clinic and posted for pacemaker, but I postponed her pacemaker due to the current situation of COVID, but she got admitted last night again. PROCEDURE PERFORMED: Dual chamber permanent pacemaker. PROCEDURE IN DETAIL: The patient was brought into the EP Lab in fasting state. Left chest was prepped and draped in a sterile fashion. Conscious sedation administered. Left subclavian venography was performed. Vancomycin and Ancef were given. A 3 cm skin incision was made. Subcutaneous tissue and pocket were formed. Two guidewires inserted inside the left axillary vein using modified Seldinger technique with no complications. ICD advanced to the RV apex, sensing 8, threshold 0.9, impendence 500 ohms and another pacing lead advanced to the right atrial appendage, sensing 2.1, threshold 1.8, impedance 450 ohms. Both leads were sutured to the fascia using 0 silk. Pocket profusely irrigated using antibiotic solution and leads were connected to AVID dual chamber permanent pacemaker, serial #[id number]. Generator placed inside the pocket and sutured to the fascia using 0 silk. Subcutaneous tissue approximated with 2-0 Vicryl in two layers. Skin was approximated using 4-0 Vicryl and Dermabond. The patient tolerated the procedure well with no complications. CONCLUSION: Dual chamber permanent pacemaker placement under MAC anesthesia. Discharge home tomorrow and clinical followup in 3 weeks. MD ZEN Arguelles/MODL /[id number]
--- NOTE | 2019-08-31 14:10 | Diagnostic Imaging Report ---
EXAMINATION: CHEST SINGLE (PORTABLE) INDICATION: Postprocedural COMPARISON: Chest radiograph 08/30/2019 FINDINGS: LINES/TUBES:Interval placement of left chest pacer. LUNGS:The lungs are well-inflated. Unchanged bilateral interstitial opacities. No focal consolidation. PLEURA:No pleural effusion or pneumothorax. MEDIASTINUM:The cardiomediastinal silhouette appears unchanged in size and shape. Atherosclerotic calcifications of the thoracic aorta. BONES/SOFT TISSUES:No acute osseous injury. ABDOMEN:No free air under the diaphragm. IMPRESSION: No pneumothorax status post interval left chest pacer placement. A linear radiopaque structure overlies the pacer on the left chest, possibly external to the patient. Signed by: Mika Maciel MD on 08/31/2019 2:07 PM
--- NOTE | 2019-08-31 14:15 | NUR ---
pt was able to come and visit with his via scanning supervisor REYNA Oropeza
[2019-08-31 14:16] LABS: CREATINE KINASE MB 1.2 ng/mL (0-5.0)
[2019-08-31 15:37] VITALS: BP 179/72
[2019-08-31] MEDS: GABAPENTIN 100 MG CAP PO SCH ×2 (16:49→22:19)
[2019-08-31] MEDS ORDERED: ONDANSETRON HCL INJ 2MG/ML 2ML 2 MG/ML VIAL ONE (17:38)
[2019-08-31] MEDS ORDERED: MIDAZOLAM HCL 2 MG/2 ML VIAL ONE (19:40)
[2019-08-31] MEDS ORDERED: FENTANYL CITRATE/PF 100MCG/2 ML INJ ONE (19:40)
--- NOTE | 2019-08-31 19:43 | NUR ---
walking rounds complete. report handed to oncoming nurse.
--- NOTE | 2019-08-31 19:50 | NUR ---
Patient received lying in bed. AAO x 3. Patient had no complaints of pain. Respirations even and non-labored . Left arm sling in place. Dressing over new pacemaker site CDI. Fall precautions implemented. Patient instructed to call for assistance when needed. Call light within reach.
[2019-08-31 20:47] VITALS: BP 148/67
[2019-08-31] MEDS ORDERED: NON-FORMULARY MEDICATION (Donepezil Hcl 10 MG) PO SCH (21:00)
[2019-08-31] MEDS ORDERED: NIFEDIPINE CR 30 MG TAB PO SCH (21:00)
[2019-08-31] MEDS ORDERED: DONEPEZIL HCL 5 MG TAB PO SCH (21:00)
[2019-08-31] MEDS ORDERED: SIMVASTATIN 20 MG TAB PO SCH (21:00)
[2019-09-01] VITALS: BP 126/60
[2019-09-01 04:00] VITALS: BP 125/65
[2019-09-01 05:37] LABS: BASOPHILS % 0.5 % (0.0-1.0); EOSINOPHILS # (AUTO) 0.4 (0.0-0.4); EOSINOPHILS % 5.9 % (0.0-6.0); HEMATOCRIT 34.7 % (34.2-44.1); LYMPHOCYTES # (AUTO) 0.6 (1.0-3.2); LYMPHOCYTES % 7.9 % (18.0-39.1); MEAN CORPUSCULAR HEMOGLOBIN 29.3 pg (28-32); MEAN CORPUSCULAR HGB CONC 31.7 g/dL (31-35); MEAN CORPUSCULAR VOLUME 92.5 fL (81-99); MONOCYTES # (AUTO) 0.6 (0.2-0.8); MONOCYTES % 8.5 % (4.4-11.3); NEUTROPHILS # (AUTO) 5.6 (2.1-6.9); NEUTROPHILS % 76.9 % (38.7-80.0); PLATELET COUNT 221 x10e3/uL (140-360); RED BLOOD COUNT 3.75 x10e6/uL (3.6-5.1); RED CELL DISTRIBUTION WIDTH 14.9 % (11.7-14.4)
[2019-09-01] MEDS ORDERED: LEVOTHYROXINE SODIUM 75 MCG TAB PO SCH ×2 (06:00→09:00)
[2019-09-01 06:01] LABS: ALBUMIN 2.9 g/dL (3.5-5.0); ALBUMIN/GLOBULIN RATIO 0.8 (0.8-2.0); ANION GAP 11.4 mmol/L (8-16); CALCIUM 8.4 mg/dL (8.4-10.2); CREATININE, SERUM 1.43 mg/dL (0.57-1.11); POTASSIUM 4.4 mmol/L (3.5-5.1)
[2019-09-01 07:24] VITALS: BP 125/65
--- NOTE | 2019-09-01 07:52 | NUR ---
SPOKE TO DR CORDOBA ON THE PHON, REPORTED WBC CHANGE FROM LAST BLOOD DRAW YESTERDAY, URINE AND BLOOD CULTURES PENDING, DR WILL COME ASSESS PT SHORTLY, NO NEW ORDERS
[2019-09-01 08:01] VITALS: BP 114/62
[2019-09-01] MEDS: GABAPENTIN 100 MG CAP PO SCH (08:41)
[2019-09-01] MEDS ORDERED: OMEGA 3 POLYUNSAT FATTY ACIDS 1000 MG SOFTGEL PO SCH (09:00)
[2019-09-01] MEDS ORDERED: THIAMINE HCL 100 MG TAB PO SCH (09:00)
[2019-09-01] MEDS ORDERED: SIMVASTATIN 40 MG TAB PO SCH (09:00)
[2019-09-01] MEDS ORDERED: FOLIC ACID 1 MG TAB PO SCH (09:00)
[2019-09-01] MEDS ORDERED: NON-FORMULARY MEDICATION (Ubidecarenone (Coq-10) 100 MG) PO SCH (09:00)
[2019-09-01] MEDS ORDERED: ASPIRIN 81 MG CHEW TAB PO SCH (09:00)
--- NOTE | 2019-09-01 11:09 | Discharge Summary ---
She is an 83-year-old female patient, presented to emergency room with a complaint of chest pain, dizziness, and recurrent syncopes. Admitting the patient's diagnosis severe sick sinus syndrome with symptomatic nonreversible bradycardia, history of paroxysmal atrial fibrillation, chest pain, hypertensive heart disease, and renal artery stenosis. HOSPITAL COURSE SUMMARY: The patient was admitted in the hospital. The patient has acute MA ruled out, and the patient was planned to have a dual-chamber permanent pacemaker placement; and the patient had a dual-chamber pacemaker placed by Dr. Medley. The patient had Cardiology consult done by Dr. Santos, and now upon stabilization in status post pacemaker placement the patient will be discharged home, on oral antibiotics, doxycycline, minocycline 400 mg twice a day for 14 days. MD BURAK Merritt/MODL /[id number]
--- NOTE | 2019-09-01 11:12 | NUR ---
[address] RAMIREZ ON THE PHONE, DR CHASE DISCHARGED PT, OK TO DISCHARGE FROM HIS STAND POINT
[2019-09-01 11:14] VITALS: BP 114/62
[2019-09-01 11:20] VITALS: BP 115/57
--- NOTE | 2019-09-01 11:28 | NUR ---
IMM letter delivered and discussed with pt. She verbalized understanding, states ready to go home. Signed copy placed in chart. Copy to pt.
[2019-09-01] MEDS ORDERED: MINOCYCLINE HCL50 MG PO (11:39)
--- NOTE | 2019-09-01 12:06 | NUR ---
PT TRANSFERRED TO [facility], NO SIGN OF ACUTE DISTRESS NOTED, INSTRUCTIONS REGARDING PACEMAKER, MEDICATIONS AND FOLLOW UP DISCUSSED WITH , PACEMAKER ACCESSORIES GIVEN TO FAMILY, NO C/O UNMET NEEDS
--- NOTE | 2019-09-01 13:14 | Consultation ---
DATE OF CONSULTATION: 08/30/2019 REASON FOR CONSULTATION: 1. Severe symptomatic bradycardia. 2. Sick sinus syndrome. 3. Non-reversible bradycardia. HISTORY OF PRESENT ILLNESS: Ms. Feliz is an 83-year-old pleasant woman, known to me since last month when I saw her in the office as an outpatient. She was referred to me for pacemaker implantation. Her symptoms were fatigue, presyncope, dizziness, heart rates frequently in the 40s, and AFib, not on any anti-arrhythmics due to bradycardia. We initially scheduled her as an outpatient, but later due to the COVID pandemic and her advanced age, I advised her to stay home, watch her symptoms, and postpone the procedure for after the pandemic is over, however, last night she got severely symptomatic with severe dizziness and heart rate in the 40s, came to the hospital, blood pressure was significantly elevated, EP and Cardiology have been consulted. PAST MEDICAL HISTORY: 1. Mild dementia. 2. Hypertension. 3. Sick sinus syndrome. 4. AFib. 5. Bradycardia. 6. Presyncope. SOCIAL HISTORY: No drugs or smoking. FAMILY HISTORY: Negative for sudden or atrial fibrillation. REVIEW OF SYSTEMS: REVIEW OF SYSTEMS: As above, otherwise negative for fevers, chills, loss of vision or blurry vision, ear pain, ear discharge, headache, numbness, chest pain, palpitation, cough, sputum, nausea, vomiting, dysuria, frequency, rash, bruise, bleeding, clots, anxiety, depression, heat or cold intolerance. PHYSICAL EXAMINATION: VITAL SIGNS: Blood pressure is 150/78, heart rate is currently 47 beats per minute. GENERAL: The patient is lying in bed, in no apparent distress. NECK: No lymphadenopathy. Thyroid exam is normal. CARDIOVASCULAR: Demonstrated S1, S2, bradycardia. LUNGS: Clear bilaterally. ABDOMEN: Soft, benign. EXTREMITIES: Warm and dry. NEURO: Nonfocal. SKIN: No new rash. PSYCH: No anxiety or depression. IMAGING DATA: EKG showed sinus bradycardia. Telemetry showed bradycardia. The lowest range was 39 beats per minute. Previous echo as an outpatient showed normal EF. ASSESSMENT AND PLAN: An 83-year-old woman with severe symptomatic sick sinus syndrome and non-reversible bradycardia, and also suffering from AFib and presyncopal episodes, initially advised postponing the procedure for after the pandemic, however, she got severely symptomatic and got admitted again for a second time to the hospital. I discussed with her cardiology, Dr. Santos and we both agree that in order to prevent her from: 1. Full syncope and injury. 2. Multiple admissions and elevated risk for catching a virus. 3. Due to severe symptoms and non-reversible bradycardia. Most important reason to proceed with the inpatient dual-chamber permanent pacemaker. I discussed with Dr. Santos, we both agree. MD ZEN Arguelles/GROVER /[id number]
[2019-09-01] MEDS ORDERED: MINOCYCLINE HCL 50 MG CAP PO SCH (21:00)
--- NOTE | 2019-09-02 14:51 | Consultation ---
DATE OF CONSULTATION: 08/30/2019 Cardiac Consultation REASON FOR CONSULTATION: Bradycardia, near syncope, hypertension, and chest pain. HISTORY OF PRESENT ILLNESS: An 83-year-old lady with longstanding history of hypertension, renovascular hypertension, renal artery stenosis status post left renal stent, hypothyroidism, history of ovarian cancer, sick sinus syndrome, and early dementia. The patient recently had surgery for fistula and rectal abscess. The patient during one of the stay, she had bradycardia, atrial fibrillation with low ventricular response. Furthermore, she was seen in our office. She is having repeated syncope and very slow ventricular response when she went to atrial fibrillation in addition to extreme bradycardia. The patient referred to EP Service. She is supposed to have a pacemaker. However, she was brought yesterday because she was feeling very weak and she had an episode of syncope as per . The patient is forgetful, cannot give much of information. She is feeling very weak. There is no fever, no chills. As per , there is no exposure to COVID-19. I visited with the patient, who was really cannot give me much of information except she is weak. No energy and she is not eating well. She cannot give more information. All information taken from her . The patient is having multiple episodes of near syncope yesterday. She had near syncope and she passed out, he need to hold her that is why he brought her in. Her blood pressure was high. She was bradycardic in the 40 in ER. CURRENT MEDICATIONS: Aspirin 81 mg a day, Crestor 10 mg a day, nifedipine ER 30 mg a day, Singulair 10 mg a day, levocetirizine dihydrochloride 5 mg per day, gabapentin 100 mg t.i.d., Protonix 40 mg a day, Colace 100 mg a day, and levothyroxine 75 mcg a day. ALLERGIES: PENICILLIN AND CODEINE. PAST MEDICAL HISTORY: 1. Hypertension. 2. Left renal stent in 2002 Omnilink 5 x 18. 3. Right renal stent. 4. Ovarian cancer treated with chemotherapy in 1973. 5. Hypothyroidism. 6. Paroxysmal atrial fibrillation and repeated syncope. 7. Early dementia. 8. Rectal fistulectomy in May 2019. 9. Right and left cataract surgery. 10. Hysterectomy. 11. Left knee replacement in 2006 after left knee arthroscopic surgery in 2005. 12. Right knee replacement in 2009. SOCIAL HISTORY: She is . She quit smoking more than 50 years ago. She does not drink alcohol. 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 FAMILY HISTORY: Father of dementia at his 70 as well as her mother in her 70s. She of dementia. Seven siblings at least one with coronary artery disease. Two healthy children, one son and one daughter. REVIEW OF SYSTEMS: GENERAL: No fever. No chills. HEENT: Dizzy spells. PULMONARY: Moderate shortness of breath on exertion. CARDIAC: Syncope and near syncope. GI: Chronic constipation. : Increased frequency. MUSCULOSKELETAL: Lower back pain, knee pain. NEUROLOGICAL: No seizure activity. PSYCHIATRIC: Very forgetful. PHYSICAL EXAMINATION: VITAL SIGNS: Height 5 feet 4 inches, weight of 151 pounds, blood pressure 130/70, heart rate of 50, respiratory rate of 18, afebrile. HEENT: Pupils are reactive. NECK: No elevation of jugular venous pulsation. CHEST: Clear to auscultation and percussion. HEART: PMI 5th intercostal space. Normal first and second heart sound. ABDOMEN: Soft. EXTREMITIES: No cyanosis. No clubbing. No edema. NEUROLOGIC: Nonfocal. LABORATORY DATA: Sodium of 141, potassium of 4.3, BUN 22, creatinine of 1.2, and glucose of 91. White blood cells count of 6.9, hemoglobin of 11.4, hematocrit 35%, and platelet count of 245,000. EKG showing sinus bradycardia in the 40s. Chest x-ray per report, no acute infiltrate. IMPRESSION AND PLAN: 1. Sick sinus syndrome. 2. Repeated syncope. 3. Hypertension, uncontrolled. 4. Hypothyroidism. 5. Alzheimer dementia. From a cardiac point of view, I will concur with a pacemaker implantation. We will adjust the blood pressure medication. Probably, we will consider even adding small dose of beta-jerson after the pacemaker and if there were no complications and no infection to prevent from degeneration atrial fibrillation. Regarding anticoagulation, it will be a challenge and we will make a decision after the pacemaker implantation, as after all that and watching the patient on remote telemetry and adjusting medication. We will follow the patient's progression with you and would like to thank for your kind referral. MD RABIA Brand/REMINGTONL /[id number]
== END 2019-09-01 12:07 | disposition home or self-care (01) | DRG 243 ==
LOC: ER 18:51 → ERHOLD 21:57 → MED/SURG2 23:24
PROVIDERS: ADMIT Internal Medicine; ATTEND Internal Medicine
PROC: 0JH606Z Insertion of Pacemaker, Dual Chamber into Chest Subcutaneous Tissue and Fascia, Open Approach (ICD-10-PCS; principal; 2019-08-31)
PROC: 0JH606Z Insertion of Pacemaker, Dual Chamber into Chest Subcutaneous Tissue and Fascia, Open Approach (ICD-10-PCS; 2019-08-31)
PROC: 02H63JZ Insertion of Pacemaker Lead into Right Atrium, Percutaneous Approach (ICD-10-PCS; 2019-08-31)
PROC: 02HK3JZ Insertion of Pacemaker Lead into Right Ventricle, Percutaneous Approach (ICD-10-PCS; 2019-08-31)
DX: I49.5 Sick sinus syndrome (principal); N39.0 Urinary tract infection, site not specified; I16.0 Hypertensive urgency; I11.9 Hypertensive heart disease without heart failure; R32 Unspecified urinary incontinence; G30.9 Alzheimer's disease, unspecified; I48.0 Paroxysmal atrial fibrillation; I70.1 Atherosclerosis of renal artery; E03.9 Hypothyroidism, unspecified; Z08 Encounter for follow-up examination after completed treatment for malignant neoplasm; Z85.43 Personal history of malignant neoplasm of ovary; F02.80 Dementia in other diseases classified elsewhere, unspecified severity, without behavioral disturbance, psychotic disturbance, mood disturbance, and anxiety
CPT/HCPCS: 33208; 36415; 71045; 80053; 80061; 81001; 82550; 82553; 84443; 84484; 85025; 85610; 85730; 93005; 99284; C1785; C1898; J0360; J2001; J2250; J2405; J3010; J3370; J3411; J7030; J7040

== ENCOUNTER 2019-10-01 15:11 | Observation (INO) | payer MEDICARE, OTHER ==
[~2019-10-01] VITALS: Ht 165.1 cm; Wt 61.7 kg
[~2019-10-01 15:11] MED LIST changes: +B-1100 M1 PO; +COQ-10100 MG PO; +DONEPEZIL HCL10 MG PO; +FLUCONAZOLE100 MG PO; +Folic acid PO; +LEVOTHYROXINE75 MCG PO; +MINOCYCLINE HCL50 MG PO; +PROAIR DIGIHAL90 MCG INH
[2019-10-01 16:01] LABS: BASOPHILS # (AUTO) 0.1 (0.0-0.1); BASOPHILS % 0.7 % (0.0-1.0); EOSINOPHILS # (AUTO) 0.3 (0.0-0.4); EOSINOPHILS % 2.6 % (0.0-6.0); HEMATOCRIT 34.4 % (34.2-44.1); HEMOGLOBIN 11.2 g/dL (12.0-16.0); LYMPHOCYTES # (AUTO) 1.6 (1.0-3.2); LYMPHOCYTES % 15.4 % (18.0-39.1); MEAN CORPUSCULAR HEMOGLOBIN 29.7 pg (28-32); MEAN CORPUSCULAR HGB CONC 32.6 g/dL (31-35); MEAN CORPUSCULAR VOLUME 91.2 fL (81-99); MONOCYTES # (AUTO) 0.8 (0.2-0.8); MONOCYTES % 7.9 % (4.4-11.3); NEUTROPHILS # (AUTO) 7.5 (2.1-6.9); NEUTROPHILS % 73.1 % (38.7-80.0); PLATELET COUNT 194 x10e3/uL (140-360); RED BLOOD COUNT 3.77 x10e6/uL (3.6-5.1); RED CELL DISTRIBUTION WIDTH 15.3 % (11.7-14.4)
[2019-10-01 16:12] LABS: INR 0.93
[2019-10-01 16:13] LABS: PARTIAL THROMBOPLASTIN TIME 25.3 seconds (23.8-35.5)
[2019-10-01 16:15] LABS: CLARITY,URINE SL CLOUDY (CLEAR); COLOR,URINE YELLOW (YELLOW); LEUKOCYTE ESTERASE ,URINE SMALL (NEGATIVE)
[2019-10-01 16:16] LABS: BILIRUBIN,URINE NEGATIVE (NEGATIVE); KETONES,URINE NEGATIVE (NEGATIVE); NITRITE,URINE NEGATIVE (NEGATIVE); PROTEIN,URINE DIPSTICK NEGATIVE (NEGATIVE); URINE UROBILINOGEN 0.2 mg/dL (0.2 - 1)
[2019-10-01 16:23] LABS: ALBUMIN 3.1 g/dL (3.5-5.0); ALBUMIN/GLOBULIN RATIO 0.8 (0.8-2.0); ANION GAP 14.2 mmol/L (8-16); CALCIUM 8.8 mg/dL (8.4-10.2); CREATININE, SERUM 1.31 mg/dL (0.57-1.11); POTASSIUM 5.2 mmol/L (3.5-5.1)
[2019-10-01 16:29] LABS: CREATINE KINASE MB 1.7 ng/mL (0-5.0)
[2019-10-01 16:36] LABS: BACTERIA,URINE MANY /HPF; EPITHELIAL CELLS,URINE MANY /LPF; TRANSITIONAL EPI CELLS,URINE MODERATE
--- NOTE | 2019-10-01 17:05 | Diagnostic Imaging Report ---
History: Fall, pain Comparison studies: CTA of the brain and neck to 06/29/2019 Technique: Axial images were obtained from the brain and cervical spine. Coronal and sagittal images reconstructed from the axial data. Dose modulation, iterative reconstruction, and/or weight based adjustment of the mA/kV was utilized to reduce the radiation dose to as low as reasonably achievable. Intravenous contrast: None Findings: Head CT: Scalp/skull: No abnormalities. No fractures, blastic or lytic lesions. Brain sulci: Mildly prominent. Ventricles: Mild compensatory dilatation. No hydrocephalus. Extra-axial spaces: No masses. No fluid collections. Parenchyma: Patchy ill-defined periventricular hypodensities are nonspecific but most consistent with mild chronic microvascular ischemic changes. No masses, hemorrhage, acute or chronic cortical vascular insults. Sellar/suprasellar region: No abnormalities. Craniocervical junction: Patent foramen magnum. No Chiari one malformation. Under pneumatization of the bilateral soccer referee cells. Cervical spine CT: Airway: Patent. Fractures: None. Soft tissues: No gross abnormalities. Atlantoaxial articulation: Intact. Alignment: Normal lordosis. No scoliosis. Grade 1 anterolisthesis of C3 on C4, and trace anterolisthesis of C6 on C7 and C7 on T1. Cervicomedullary junction: No abnormalities. Patent foramen magnum. Vertebrae: No infection or neoplasm. Degenerative changes: Multilevel cervical spondylosis is present with varying degrees of disc height loss, worst at C5-C6, posterior disc osteophyte complexes, uncovertebral hypertrophy, and facet hypertrophy. There is at least moderate spinal canal stenosis at C5-C6 from a posterior disc osteophyte complex. There is also multilevel moderate to severe neural foraminal stenosis bilaterally at C3-C4 and C5-C6, C4-C5 and C6-C7 on the right. Incidental findings: None. IMPRESSION: Head CT: No acute abnormalities. Chronic findings: 1. Mild global parenchymal volume loss. 2. Mild chronic microvascular ischemic changes. Cervical spine CT: 1. No acute osseous injury. 2. Cannot adequately evaluate for ligament, spinal cord and or vascular abnormalities. 3. Multilevel cervical spondylosis with at least moderate degenerative spinal canal stenosis at C5-C6 and varying degrees of neural foraminal stenosis as above. Signed by: DR Trenton Ricardo M.D. on 10/01/2019 7:19 PM
[2019-10-01] MEDS ORDERED: CEFTRIAXONE SOD 1 GM VIAL IV SCH (17:15)
--- NOTE | 2019-10-01 17:28 | Diagnostic Imaging Report ---
Pelvis CPT code: 29371 Indication: ^fall ^[id number] ^[id number] Technique: A.P. view of the pelvis Comparison: CT chest, abdomen, pelvis 07/24/2019 Findings: The bones are diffusely demineralized. There is no evidence of fracture, dislocation, focal osseous lesion. There are mild degenerative changes of the lower lumbar spine. No diastases of the pubic symphysis or sacroiliac joints. Rounded subcutaneous calcifications in the posterior pelvis are stable. IMPRESSION: No acute traumatic pathology. Signed by: Dr. Louis Campbell MD on 10/01/2019 5:24 PM
[2019-10-01] MEDS ORDERED: CEFTRIAXONE SOD 1 GM/NS 50 ML 50 ML IV ONE (17:30)
--- NOTE | 2019-10-01 17:31 | Diagnostic Imaging Report ---
Left rib multiple views CPT code: 64437 History: Fall, left rib pain Comparison: None. Findings: The bones are diffusely demineralized. The rib structures on the left appear intact. Nondisplaced fracture of the seventh rib, posterior aspect. Chest PA single view demonstrates dual-lead pacemaker wires in the right atrium and right ventricle. No pleural effusion, pulmonary contusion, or pneumothorax. There is a stent in the expected location of the left renal artery. IMPRESSION: Fracture of the posterior aspect of the left seventh rib. No evidence of pleural or pulmonary injury. Signed by: Dr. Louis Campbell MD on 10/01/2019 5:27 PM
[2019-10-01] MEDS ORDERED: ONDANSETRON HCL INJ 2MG/ML 2ML 2 MG/ML VIAL IV PRN ×2 (18:00→21:15)
[2019-10-01] MEDS ORDERED: VANCOMYCIN 1GM/NS 250 ML 250 ML IV ONE (18:00)
[2019-10-01] MEDS ORDERED: CEFTRIAXONE SOD 1 GM VIAL ONE (18:31)
[2019-10-01] MEDS: FAMOTIDINE 20 MG/2 ML VIAL IV SCH (18:32)
[2019-10-01 20:15] VITALS: BP 196/87
--- NOTE | 2019-10-01 20:30 | NUR ---
Received patient from ER, patient is alert and oriented x 3. patient is on room air. safety and fall precautions maintained as per hospital protocol: bed in lowest position and locked, needed items beside bed, and call love placed close to patient, patient is currently stable, will continue to monitor.
[2019-10-01 20:53] VITALS: BP 164/88
[2019-10-01 21:03] VITALS: BP 164/88
[2019-10-01] MEDS ORDERED: ACETAMINOPHEN 325 MG TAB PO PRN (21:15)
[2019-10-01] MEDS ORDERED: MELATONIN 5 MG TABLET PO PRN (21:15)
[2019-10-01] MEDS ORDERED: HYDRALAZINE HCL 20 MG/ML VIAL IV PRN (21:15)
[2019-10-01] MEDS ORDERED: HYDROCODONE/APAP 5MG-325MG TAB PO PRN (21:15)
[2019-10-01] MEDS: PANTOPRAZOLE SOD 40 MG TABEC PO SCH (21:57)
[2019-10-01] MEDS: SODIUM CHLORIDE 0.9% 1000ML 1,000 ML IV SCH (21:57)
[2019-10-01] MEDS ORDERED: LIDOCAINE 4% PATCH TP SCH (22:00)
[2019-10-02] VITALS: BP 168/72
--- NOTE | 2019-10-02 00:24 | History and Physical ---
CHIEF COMPLAINT: Mechanical fall. HISTORY OF PRESENT ILLNESS: The patient is a very poor historian due to underlying dementia. Currently there is no family at bedside. So, information is being obtained by the nursing staff and ER physician as well as parts of it from the patient. This is an 84-year-old female, who has an AICD possibly or pacemaker unable to obtain from the patient. History of hypothyroidism, hypertension. Presents to the emergency room after having a mechanical fall. According to the patient and the staff, we are not sure if the patient had underlying chest pain when this occurred. No reports of any palpitations. No nausea, vomiting, abdominal pain, cough, or congestion. The patient reports that she felt very lightheaded when she was ambulating. She reports she was working a lot at home. She does endorse not drinking enough fluids at home. No reports of any dysuria, frequency, or urgency. The patient was seen and evaluated at bedside on the medical floor, she is currently doing well with no other issues at this time. Vital signs were stable during my evaluation. REVIEW OF SYSTEMS: Pertinent positives; mechanical fall with lightheadedness and dizziness. The rest of 14-point review of systems that I was able to retrieve from the patient seems to be negative. ALLERGIES: PENICILLIN. HOME MEDICATIONS: Alendronate, aspirin, docusate, minocycline, fish oil, tramadol, albuterol, folic acid, Aricept, gabapentin, levothyroxine, nifedipine, Protonix, rosuvastatin, and thiamine. PAST MEDICAL HISTORY: Alzheimer's dementia, peripheral neuropathy, hypothyroidism, hypertension, hyperlipidemia, osteoporosis, and chronic pain. PAST SURGICAL HISTORY: Unable to obtain. FAMILY HISTORY: Unable to obtain. SOCIAL HISTORY: I know she is . Unable to obtain the rest of the information from the patient due to her memory. PHYSICAL EXAMINATION: VITAL SIGNS: Temperature is 98.4, pulse 70, respiratory rate is 19, blood pressure was 160/76, pulse ox 99% on room air. GENERAL: In no acute distress. Alert and oriented x2. She has baseline dementia. HEENT: Head is normocephalic and atraumatic. Eyes; pupils are equal, round, and reactive to light bilaterally. Extraocular movements intact bilaterally. Throat; no evidence of erythema or exudates in the posterior pharynx. Has poor dentition. NECK: Supple. Range of motion. PULMONARY: Clear to auscultation bilaterally. No wheezing, rales, or rhonchi. No crackles appreciated. CARDIOVASCULAR: Positive S1, S2. No murmurs, rubs, or gallops appreciated. ABDOMEN: Soft, nondistended, and nontender to palpation. Bowel sounds present. MUSCULOSKELETAL: Strength is 5/5 throughout. No evidence of any muscle deficits on examination. NEUROLOGICAL: No evidence of any neurologic deficits on exam. SKIN: Intact. Warm to touch. Good cap refill. EXTREMITIES: No edema. Good range of motion throughout. LABORATORY DATA: Labs show white count 10.2, hemoglobin 11.3, hematocrit 34, platelets of 194. Coagulation; PT 13, INR 0.93, PTT 25. Chemistry; sodium 140, potassium 5.2, chloride 111, bicarbonate 20, anion gap of 14, BUN 24, creatinine 1.31, glucose 110, calcium 8.8, total bilirubin 0.3, AST 37, ALT 14, alkaline phosphatase 77. CK 108, troponin 0.013. Albumin 3.1. Urinalysis shows 6-10 wbc's, many transitional epithelial cells, many bacteria. Coronavirus PCR is pending. Microbiology, urine cultures are pending. IMAGING STUDIES: CT brain, no acute abnormalities. CT cervical spine shows no evidence of any acute findings, but shows evidence of multilevel cervical spondylosis. Pelvic x-ray shows no acute pathology. Rib x-ray shows a fracture of the posterior aspect of the 7th left rib. No evidence of any pleural or pulmonary injury. IMPRESSION: 1. Mechanical fall with underlying syncopal episode, presumed to be from underlying dehydration. 2. History of coronary artery disease with an AICD. 3. Left rib fracture secondary to mechanical fall. 4. Hypertension. 5. Baseline dementia. 6. Probable urinary tract infection. PLAN: At this time, imaging studies reviewed shows evidence of a left rib fracture. The rest of the imaging studies were found to be negative. I will go ahead and add a lidocaine patch to the left rib cage area including pain control. I am concerned with AICD or the pacer that she has. I am not sure when the last time it was interrogated. She endorses having this placed about several weeks ago. I will go ahead and get Cardiology to come and interrogate in to further evaluate her. Continue with cardioprotective medications. Cardiac enzymes trending and a carotid ultrasound has been ordered. I did restart her home medications except for sedating medications like gabapentin. I did hold her Lovenox due to fall and she does have a bruise in the frontal aspect of her face. I would like to monitor that very closely. We will get PT and OT evaluation as well. Continue with IV antibiotics. Low-dose IV fluids initiated. We will continue with same plan of care and monitor very closely. Discussed plan of care with nursing staff. The patient potentially can be discharged tomorrow, but would like to see what the consultants' recommendations are first. The patient was stable during my evaluation. MD PASTOR Taveras/GROVER /[id number]
[2019-10-02 01:53] LABS: CREATINE KINASE MB 1.2 ng/mL (0-5.0)
[2019-10-02 04:00] VITALS: BP 152/70
[2019-10-02] MEDS ORDERED: LEVOTHYROXINE SODIUM 75 MCG TAB PO SCH (06:00)
--- NOTE | 2019-10-02 06:29 | NUR ---
CONSULT TO called
[2019-10-02] MEDS: FAMOTIDINE 20 MG/2 ML VIAL IV SCH (06:44)
[2019-10-02 06:53] LABS: BASOPHILS % 0.6 % (0.0-1.0); EOSINOPHILS # (AUTO) 0.3 (0.0-0.4); EOSINOPHILS % 4.1 % (0.0-6.0); HEMATOCRIT 32.9 % (34.2-44.1); HEMOGLOBIN 10.6 g/dL (12.0-16.0); LYMPHOCYTES # (AUTO) 0.4 (1.0-3.2); LYMPHOCYTES % 6.2 % (18.0-39.1); MEAN CORPUSCULAR HEMOGLOBIN 29.7 pg (28-32); MEAN CORPUSCULAR HGB CONC 32.2 g/dL (31-35); MEAN CORPUSCULAR VOLUME 92.2 fL (81-99); MONOCYTES # (AUTO) 0.6 (0.2-0.8); NEUTROPHILS % 79.6 % (38.7-80.0); PLATELET COUNT 182 x10e3/uL (140-360); RED BLOOD COUNT 3.57 x10e6/uL (3.6-5.1); RED CELL DISTRIBUTION WIDTH 15.2 % (11.7-14.4)
[2019-10-02 07:18] LABS: ALBUMIN 2.7 g/dL (3.5-5.0); ALBUMIN/GLOBULIN RATIO 0.9 (0.8-2.0); ANION GAP 10.7 mmol/L (8-16); CREATININE, SERUM 1.08 mg/dL (0.57-1.11); POTASSIUM 3.7 mmol/L (3.5-5.1)
[2019-10-02 07:34] LABS: CREATINE KINASE MB 0.8 ng/mL (0-5.0)
[2019-10-02 08:47] VITALS: BP 178/76
[2019-10-02] MEDS ORDERED: LIDOCAINE 4% PATCH TP SCH (09:00)
[2019-10-02] MEDS ORDERED: THIAMINE HCL 100 MG TAB PO SCH (09:00)
[2019-10-02] MEDS: PANTOPRAZOLE SOD 40 MG TABEC PO SCH (09:00)
[2019-10-02] MEDS ORDERED: ASPIRIN 81 MG ENTERIC COATED PO SCH (09:00)
[2019-10-02] MEDS ORDERED: SIMVASTATIN 40 MG TAB PO SCH (09:00)
[2019-10-02] MEDS ORDERED: GABAPENTIN 100 MG CAP PO SCH (09:00)
[2019-10-02] MEDS ORDERED: CEFTRIAXONE SOD 1 GM/NS 50 ML 50 ML IV SCH (09:00)
[2019-10-02] MEDS ORDERED: CEFTRIAXONE SOD 1 GM VIAL IV SCH (09:00)
[2019-10-02] MEDS: SODIUM CHLORIDE 0.9% 1000ML 1,000 ML IV SCH (10:35)
--- NOTE | 2019-10-02 10:57 | NUR ---
patient refusing to take all oral medication. encouraged to take ordered medication that these are the same medications that she takes at home. aware and is attempting to get her to take meds as well.
[2019-10-02 11:03] VITALS: BP 178/76
[2019-10-02 12:56] VITALS: BP 113/58
[2019-10-02 13:00] VITALS: BP 166/72
--- NOTE | 2019-10-02 15:07 | NUR ---
patient discharged. IV removed, telemetry removed. waiting for to pick patient up at this time.
--- NOTE | 2019-10-02 15:20 | NUR ---
patient discharged. patient ambulated to husbands personal vehicle.
[2019-10-02] MEDS ORDERED: ENOXAPARIN SOD INJ 40 MG/0.4 ML SYR SC SCH (17:00)
[2019-10-02] MEDS ORDERED: NON-FORMULARY MEDICATION (Donepezil Hcl 10 MG) PO SCH (21:00)
[2019-10-02] MEDS ORDERED: DONEPEZIL HCL 5 MG TAB PO SCH (21:00)
[2019-10-02] MEDS ORDERED: SIMVASTATIN 20 MG TAB PO SCH (21:00)
[2019-10-02] MEDS ORDERED: NIFEDIPINE CR 30 MG TAB PO SCH (21:00)
--- NOTE | 2019-10-02 21:24 | Consultation ---
DATE OF CONSULTATION: 10/02/2019 REASON FOR THE CONSULTATION: Syncope, mechanical fall. HISTORY OF PRESENT ILLNESS: An 84-year-old lady, who is known with dementia, hypertension, renovascular hypertension, renal artery stenosis status post left renal stent, hypothyroidism, ovarian cancer, sick sinus syndrome status post pacemaker implantation early August 2019, secondary to bradyarrhythmia and atrial fibrillation with slow ventricular response. The patient despite having her pacemaker and so, she continued to have fall and near syncope. She came to this institution because she fell down. There is a definitive element of autonomic dysfunction. In fact, her medications were adjusted. We stopped her antihypertensive medication, and were started asking her and to discuss with Dr. Gil to stop her Aricept, which is new medication and her gabapentin to see if this would help her symptoms. I visited with the patient, who is really truly does not know what is going on. As per record, she had a fall. CURRENT MEDICATION: At home include, aspirin 82 mg a day, Singulair 10 mg a day, gabapentin 100 mg only twice a day, Aricept on hold, levothyroxine 75 mcg a day, Protonix 40 mg a day, and Colace 100 mg a day. ALLERGIES: PENICILLIN AND CODEINE. PAST MEDICAL AND SURGICAL HISTORY: 1. Dementia. 2. Left renal stent in 2002. 3. Right renal stent. 4. Ovarian cancer, treated with chemotherapy in 1973. 5. Hypothyroidism. 6. Paroxysmal atrial fibrillation and repeated syncope. 7. Pacemaker implantation. 8. Dementia. 9. Rectal fistulectomy in May 2019. 10. Cataract surgery. 11. Hysterectomy. 12. Left knee replacement in 2006. 13. Right knee replacement 2009. SOCIAL HISTORY: She is . She is nonsmoker. She is non-alcohol drinker. 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 FAMILY HISTORY: Father of dementia in his 70s, as well as her mother. Has seven siblings, one with coronary artery disease. Two healthy children, one son and one daughter. REVIEW OF SYSTEMS: Unable to get, but we gathered it from the patient's , from the nursing and from records. Basically, the patient having no fever, no chills. Dizzy spells and repeated near-syncope, repeated fall, chronic constipation, incontinence of urine. No seizure activity and very forgetful. PHYSICAL EXAMINATION: VITAL SIGNS: Height of 5 feet 4 inches, weight of 136 pounds, blood pressure 160/70, heart rate of 60, respiratory rate of 18, and temperature of 99 Fahrenheit. HEENT: Pupils are reactive. NECK: No elevation of jugular venous pulsation. CHEST: Clear to auscultation and percussion. HEART: PMI in the 5th left intercostal space. Normal first and second heart sound. Pacemaker is noted in place. Soft ejection systolic murmur. ABDOMEN: Soft. No organomegaly. No abdominal bruits. EXTREMITIES: No cyanosis, no clubbing, no edema. NEUROLOGIC: Awake, alert, and oriented. The patient is very forgetful. LABORATORY DATA: Sodium of 141, potassium 3.7, BUN of 17, creatinine of 1, glucose of 106, hemoglobin of 10.6, hematocrit 33%, platelet count of 182,000. White blood cell count of 6.3. EKG showing atrial pacing. IMPRESSION AND PLAN: 1. Early dementia. 2. Sick sinus syndrome, status post pacemaker implantation. 3. Paroxysmal atrial fibrillation. 4. Repeated syncope. 5. Hypertension. 6. Hypothyroidism. 7. CT scan showed no acute event. 8. Pacemaker is appropriately functioning. PLAN: Will be for observation and adjustment of medication, possible neurologic evaluation and supportive care. MD RABIA Brand/GROVER /[id number]
--- NOTE | 2019-10-02 23:43 | Discharge Summary ---
FINAL DISCHARGE DIAGNOSES: 1. Mechanical fall. 2. History of coronary artery disease with an AICD, recently installed. 3. Left rib fracture secondary to mechanical fall. 4. Hypertension. 5. Baseline dementia. 6. Probable urinary tract infection. 7. Acute kidney injury secondary to dehydration. CONSULTANTS: Cardiology. PHYSICAL EXAMINATION: VITAL SIGNS: Temperature is 99.6, pulse 82, respiratory rate 20, blood pressure is 166/72, and pulse ox 95% on room air. LABORATORY DATA: Labs show white count 6.3, hemoglobin 10.6, hematocrit 33, platelets of 182. Chemistry; sodium 141, potassium 3.7, chloride 112, bicarb 22, anion gap of 10, BUN 17, creatinine is 1, glucose 106, calcium 8, total bilirubin was 0.6, AST 19, ALT 10, alkaline phosphatase 64. Troponins were all negative. TSH 2.554. Urinalysis, many bacteria, many transitional epithelial cells, 6-10 wbc's. SEROLOGY: Coronavirus PCR was pending. Urine culture showed no growth. IMAGING STUDIES: CT brain showed no acute abnormalities. There is some chronic global parenchymal volume loss. CT cervical neck shows no acute osseous injury. There is some multilevel cervical spondylosis with at least moderate degenerative spinal canal stenosis at C5-C6 and varying degrees of neuroforaminal stenosis as described above, but no evidence of any acute findings. CT pelvis showed no acute traumatic pathology. Rib x-ray shows fracture of the posterior aspect of the left 7th rib. No evidence of any pleural or pulmonary injury. Carotid ultrasound shows right carotid with no disease. Left carotid shows some mild disease noted. HOSPITAL COURSE: This is an 84-year-old female, came into the ED after having a mechanical fall that occurred at home. According to the story, the patient was cleaning, she kind of turned over to the left, lost her balance and fell to the ground. There was no reports of any palpitations, chest pain, stroke-like symptoms, slurred speech, facial drooping, or any seizure-like activity when I talked to the . At first, the patient was doing well for about 3 to 4 hours, but the states that she complained of left-sided rib pain and brought to the hospital for further evaluation and management. While here, CT imaging of the brain and cervical neck showed no acute findings. Pelvic x-ray was found to be negative. Rib x-ray series shows left-sided 7th rib fracture needing conservative treatment. Carotid ultrasound shows some mild disease. She was on cardiac telemetry with no alarms. Cardiology was consulted and he cleared the patient for discharge as he recently saw her not too long ago and the patient was doing very well. The patient was found to have presumably UTI, was on IV antibiotics and discharged on oral antibiotics. She was found to be dehydrated as well with acute kidney injury and improved with IV fluid hydration with also could contribute to her underlying syncope. The patient has been cleared for discharge by Cardiology. The patient worked with physical therapy and occupational therapy with no issues. The patient was cleared for discharge to home. I spoke with the by phone and I explained the plan of care, which he verbalized understanding. On the day of discharge, vital signs were stable, labs reviewed and stable. The patient is seen and evaluated and examined thoroughly on the day of discharge. No other complaints. 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 MEDICATIONS: See med reconciliation form. DISPOSITION: Home. CONDITION: Stable. DIET: Heart healthy. In the event of any worsening symptoms, the patient was advised to come back to the ED for further evaluation. Discharge summary took greater than 35 minutes. MD PASTOR Taveras/MODL /[id number]
== END 2019-10-02 15:18 | disposition home or self-care (01) ==
LOC: ER 15:11 → ERHOLD 17:59 → MED/SURG3 20:20
PROVIDERS: ADMIT Internal Medicine; ATTEND Internal Medicine
DX: E86.0 Dehydration (principal); W19.XXXA Unspecified fall, initial encounter; Y93.E9 Activity, other interior property and clothing maintenance; Y92.009 Unspecified place in unspecified non-institutional (private) residence as the place of occurrence of the external cause; F03.90 Unspecified dementia, unspecified severity, without behavioral disturbance, psychotic disturbance, mood disturbance, and anxiety; I10 Essential (primary) hypertension; S22.32XA Fracture of one rib, left side, initial encounter for closed fracture; Z95.810 Presence of automatic (implantable) cardiac defibrillator; I25.10 Atherosclerotic heart disease of native coronary artery without angina pectoris; I48.0 Paroxysmal atrial fibrillation; Z79.01 Long term (current) use of anticoagulants; Z96.653 Presence of artificial knee joint, bilateral; E03.9 Hypothyroidism, unspecified
CPT/HCPCS: 36415 ×2; 70450; 71101; 72125; 72170; 80053 ×2; 81001; 82550 ×2; 82553 ×2; 84443; 84484 ×2; 85025 ×2; 85610; 85730; 87086; 87635; 93005; 93880; 97161; 99284; G0378 ×2; J0360; J0696 ×2; J3370; J7030 ×2; S0164

== ENCOUNTER 2019-11-06 09:10 | Observation (INO) | payer MEDICARE, OTHER ==
[~2019-11-06] VITALS: Ht 170.2 cm; Wt 58.2 kg
--- NOTE | 2019-11-06 09:15 | NUR ---
TALKED TO ER MD, STATES TO PUT ORGANIC PREPARATION TECHNICIAN FOLLOW UP EVEN IF D/C FOR POSSIBLE NEED FOR SENIOR CARE PLACEMENT. 9 VISITS IN 6 MONTHS TO ER. MAY HAVE SUBCONTRACT ADMINISTRATOR STRESS. PT DISHOVLED.
--- OUTSIDE RECORDS SUMMARY | 2019-11-06 09:17 | XMS REPORT | Continuity of Care Document ---
Author Author [facility] t Organization [facility] Address [address] [place] [address] [address] [place] [address] Phone Unavailable Care Team Providers Care Meat Boner Name Role Phone RENA FERMIN, MD Julio FLORES PCP DATANVI, S JIRIES Attphys Unavailable RENA, Julio SANDRA Attphys Unavailable Jimmy GAGNON Attphys Unavailable Susi GREER Attphys Unavailable SYEDA, SHAILA Attphys Unavailable Kurt BROWN Attphys Unavailable CELESTE, Susi BLEVINS Attphys Unavailable CANDIDA, David PICKARD Attphys Unavailable DAHU, S JIRIES Admphys Unavailable CHASE, Julio FLORES Admphys Unavailable Payers Payer Name Policy Type Policy Number Effective Date Expiration Date Mariam childs AARP NA 2019 00:00:00 [facility] Medicare A & B NA 2002 00:00:00 [facility] Problems Condition Name Condition Details Condition Category Status Onset Date Resolution Date Last Treatment Date Treating Clinician Comments Source 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 Active 2014-08-03 00:00:00 [facility] Angioedema Angioedema Problem Active 2014-05-10 00:00:00 [facility] Swelling of submandibular region Submandibular swelling Problem Active 2014-05-10 00:00:00 [facility] Altered mental status Altered mental state Problem Active [facility] Urinary tract infection UTI (urinary tract infection) Problem Active [facility] Elevated liver enzymes Elevated liver enzymes Problem Active [facility] Diarrhea Diarrhea Problem Active [facility] Vomiting Vomiting Problem Active [facility] Atrial fibrillation with rapid ventricular response At rial fibrillation with RVR Problem Active [facility] New onset atrial fibrillation New onset a-fib Problem Active [facility] Syncope and collapse Syncope and collapse Problem Active [facility] Chest pain Chest pain Problem Active [facility] Increased serum lipase level Elevated lipase Problem Active [facility] Hypertensive urgency Hypertensive urgency Problem Active [facility] Symptomatic bradycardia Symptomatic bradycardia Problem Active [facility] Weakness Weakness Problem Active [facility] Pre-syncope Problem Active [facility] Fall Problem Active [facility] Problem Active [facility] Fracture of rib Problem Active [facility] Allergies, Adverse Reactions, Alerts Allergy Name Allergy Type Status Severity Reaction(s) Onset Date Inacti ve Date Treating Clinician Comments Source Penicillin Allergy to substance Active Mild 2018-11-10 00:00:00 [facility] Social History Social Habit Start Date Stop Date Quantity Comments Source Sex Assigned At 1935 00:00:00 1935 00:00:00 Female [facility] Medications Ordered Medication Name Filled Medication Name Start Date Stop Da te Current Medication? Ordering Clinician Indication Dosage Frequency Signature (SIG) Comments Components Source Nitrofurantoin Monohyd/M-Cryst (Macrobid 100 Mg Capsul e) 100 Mg CAPSULE Nitrofurantoin Monohyd/M-Cryst (Macrobid 100 Mg Capsule) 100 Mg CAPSULE 2019-04-24 10:02:00 2019-07-02 00:00:00 No 100 Twice A Day [facility] Albuterol Sulfate (Proair Digihaler) 90 Mcg AER.PW.BAS Albuterol Sulfate (Proair Digihaler) 90 Mcg AER.PW.BAS Yes .09 Four Times Daily as needed for Wheezing [facility] Alendronate Sodium Alendronate Sodium Yes 70 We ekly [facility] Aspirin Aspirin Yes 2 Daily [facility] Docusate Sodium (Colace) 100 Mg CAP Docusate Sodium (Colace) 100 Mg C AP Yes 100 Daily as needed for Constipation [facility] Donepezil Hcl Donepezil Hcl Yes 10 Bedtime [facility] Folic Acid Folic Acid Yes [address] [facility] Gabapentin Gabapentin Yes 100 Three Times A Day [facility] Levothyroxine Sodium Levothyroxine Sodium Yes 75 Daily [facility] Minocycline Hcl Minocycline Hcl Yes 100 Twice A Day for Pro [facility] Nifedipine (Nifedipine Er) 30 Mg TAB.ER.24 Nifedipine (Nifedipine Er) 30 Mg TAB.ER.24 Yes 30 Bedtime [facility] Lapine-3 Fatty Acids/Fish Oil (Lapine 3 Fish Oil Softgel ) 1 Each CAPSULE.DR Gann- 3 Fatty Acids/Fish Oil (Lapine 3 Fish Oil Softgel) 1 Each CAPSULE. Yes 1000 Daily [facility] Pantoprazole Sodium (Protonix) 40 Mg TABLET. Pantopr azole Sodium (Protonix) 40 Mg TABLET. Yes 40 Every 12 Hours [facility] Rosuvastatin Calcium (Crestor) 10 Mg TAB Rosuvastatin Calcium (Crestor) 10 Mg TAB Yes 10 Daily [facility] Thiamine Hcl (B-1) 100 Mg TABLET Thiamine Hcl (B-1) 100 Mg TABLET Yes 100 Daily [facility] Tramadol Hcl (Ultram 50MG*) 50 Mg TAB Tramadol Hcl (Ultram 50MG*) 5 0 Mg TAB Yes 50 Three Times A Day as needed for Moderate Pain (4-6) [facility] Ubidecarenone (Coq-10) 100 Mg CAPSULE Ubidecarenone (Coq-10) 100 Mg CAPSULE Yes 100 Daily [facility] Vit C/E/Zn/Coppr/Lutein/Zeaxan (Preservision Areds 2 S oftgel) 1 Each CAPSULE Vit C/E/Zn/Coppr/Lutein/Zeaxan (Preservision Areds 2 Softgel) 1 Each CAPSULE Yes 1 Daily [facility] Fluconazole Fluconazole 2019-09-01 00:00:00 No 100 [facility] Meclizine Hcl Meclizine Hcl 2019-09-01 00:00:00 No 12.5 Daily [facility] Meloxicam Meloxicam 2019-09-01 00:00:00 No 15 Daily as needed for Mild Pain (1-3) [facility] Montelukast Sodium Montelukast Sodium 2019-09-01 00:00:00 No 10 Daily [facility] Nitrofurantoin Macrocrystal (Nitrofurantoin) 100 Mg CA PSULE Nitrofurantoin Macrocrystal (Nitrofurantoin) 100 Mg CAPSULE 2019-09-01 00:00:00 No 100 [facility] Levocetirizine Dihydrochloride Levocetirizine Dihydrochloride 2019-08-31 00:00:00 No 5 Bedtime [facility] Levothyroxine Sodium Levothyroxine Sodium 2019-08-31 00:00:00 No 75 Daily [facility] Ubidecarenone (Coq10) 50 Mg TAB.CHEW Ubidecarenone (Coq10) 50 Mg TAB.CHEW 2019-08-31 00:00:00 No 100 Daily [facility] Donepezil Hcl (Aricept) 5 Mg TABLET Donepezil Hcl (Aricept) 5 Mg TABLET 2019-07-02 00:00:00 No 5 Bedtime [facility] Hydralazine Hcl Hydralazine Hcl 2019-07-02 00:00:00 No 25 Twice A Day as needed for Prn [facility] Meclizine Hcl Meclizine Hcl 2019-07-02 00:00:00 No 25 As Needed [facility] Meloxicam Meloxicam 2019-07-02 00:00:00 No 15 Daily as needed for Prn [facility] Albuterol Sulfate (Proair Hfa Inhaler*) 8.5 Gm INH Alb uterol Sulfate (Proair Hfa Inhaler*) 8.5 Gm INH 2019-06-03 00:00:00 No 1 As Needed [facility] Amlodipine Besylate Amlodipine Besylate 2019-06-03 00:00:00 No 10 Bedtime [facility] Fluticasone Propionate Fluticasone Propionate 2019-06-03 00:00:00 No Daily [facility] Hydralazine Hcl Hydralazine Hcl 2019-06-03 00:00:00 No 50 Three Times A Day [facility] Meclizine Hcl Meclizine Hcl 2017-09-01 00:00:[address] [facility] Baclofen Baclofen 2017-03-14 00:00:00 No 10 Three T imes A Day [facility] Meloxicam Meloxicam 2017-03-11 00:00:00 No 15 Daily [facility] Cetirizine Hcl Cetirizine Hcl 2017-03-08 00:00:00 No 10 Daily [facility] Fluticasone Propionate (Flonase) 16 Gm SPRAY.SUSP Flut icasone Propionate (Flonase) 16 Gm SPRAY.SUSP 2017-03-08 00:00:00 No 16 Daily [facility] Levofloxacin (Levaquin) 500 Mg TABLET Levofloxacin (Levaquin) 50 0 Mg TABLET 2017-03-08 00:00:00 No 500 Daily [facility] Loratadine Loratadine 2017-03-08 00:00:00 No 10 Jayna ly [facility] Antivert Antivert 2017-01-14 00:00:00 No As Need ed [facility] Areds Areds 2017-01-14 00:00:00 No 2 Twice A Day [facility] Nitrofurantoin Macrocrystal (Nitrofurantoin) 100 Mg CA PSULE Nitrofurantoin Macrocrystal (Nitrofurantoin) 100 Mg CAPSULE 2017-01-14 00:00:00 No 100 Twice A Day [facility] Furosemide Furosemide 2017-01-12 00:00:00 No 20 Chiquis ry Other Day [facility] Prednisone Prednisone 2017-01-12 00:00:00 No 5 Twi ce A Day [facility] Ciprofloxacin Hcl (Cipro) 500 Mg TABLET Ciprofloxacin Hcl (C ipro) 500 Mg TABLET 2014-08-05 00:00:00 No 500 Every 12 Hours [facility] Cholecalciferol (Vitamin D3) (Vitamin D) 1,000 Unit TA BLET Cholecalciferol (Vitamin D3) (Vitamin D) 1,000 Unit TABLET 2014-03-19 00:00:00 No 1000 Daily [facility] Lidocaine (Lidoderm) 700 Mg ADH..PATCH Lidocaine (Lidoderm) 700 Mg ADH..PATCH 2014-03-19 00:00:00 No 1 12HOURS [facility] Lisinopril Lisinopril 2014-03-19 00:00:00 No 20 Twi ce A Day [facility] Tizanidine Hcl (Zanaflex) 2 Mg CAPSULE Tizanidine Hcl (Zanaflex) 2 Mg CAPSULE 2014-03-19 00:00:00 No 2 Every 12 Hours [facility] Vit A,C & E/Lutein/Minerals (Ocuvite Tablet) 1 Each TA BLET Vit A,C & E/Lutein/Minerals (Ocuvite Tablet) 1 Each TABLET 2014-03-19 00:00:00 N o 1 Daily [facility] Niacin Niacin 2013-12-14 00:00:00 No 500 Daily [facility] Rosuvastatin Calcium (Crestor) 10 Mg TAB Rosuvastatin Calcium (Crestor) 10 Mg TAB 2013-12-14 00:00:00 No 10 Daily [facility] Vital Signs Vital Name Observation Time Observation Value Comments Source Body Temperature 2019-10-02 13:00:00 99.6 [degF] [facility] BMI (Body Mass Index) 2019-10-01 20:59:00 22.6 kg/m2 [facility] Weight 2019-10-01 15:23:00 136 [lb_av] [facility] Procedures Procedure Date / Time Performed Performing Clinician Sourc e Computed tomography of brain without radiopaque contrast 2019-09 00:00:00 [facility] Computed tomography of cervical spine without contrast 8 00:00:00 [facility] INSERT PACE. DUAL SATISH IN CHEST SUBCU/FASCIA, OPEN 2019-08-31 00 :00:00 [facility] INSERTION OF PACEMAKER LEAD INTO RIGHT ATRIUM, PERC AP PROACH 2019-08-31 00:00:00 [facility] INSERTION OF PACEMAKER LEAD INTO R VENTRICLE, PERC APPROACH 2019-08-31 00:00:[address] [facility] [address] angiography of chest 2019-07-24 00:00:00 HAWA GAGNON [facility] Computed tomography angiography of abdom en and pelvis without then with contrast 2019-07-24 00:00:00 HAWA GAGNON [facility] CYSTOSCOPY & URETER CATHETER 2019-07-21 00:00:00 [facility] REMOVE ANAL FIST SUBQ 2019-07-16 00:00:00 [facility] X-ray of chest, two views 2019-07-15 00:00:00 ROSA GREER [facility] Magnetic resonance imaging of brain without contrast 2019-06 00:00:00 ILANA PALMER [facility] CT angiography of neck 2019-06-29 00:00:00 ILANA PALMER [facility] Computed tomography angiography of brain 2019-06-29 00:00:00 ILANA CARTER [facility] Computed tomography of brain without radiopaque contrast 00:00:00 SANDRA CHASE [facility] Ultrasound, renal 2019-06-22 00:00:00 SHAILA LANDA [facility] INCISION OF ANAL SPHINCTER 2019-06-03 00:00:00 Jimmy [facility] Computed tomography of abdomen and pelvis with contrast 2018 00:00:00 GIRISH BROWN [facility] Plan of Care Planned Activity Planned Date Details Comments Source Instructions Fall Prevention [facility] - Patients [facility] Encounters Start Date/Time End Date/Time Encounter Type Admission Type Attendi [facility] Care Department Encounter ID Source 2019-10-01 17:59:00 2019-10-02 15:18:00 Discharged Inpatient (obs) [address] [facility] [id number] [facility] 2019-08-30 21:57:00 2019-09-01 12:07:00 Discharged Inpatient [address] [facility] [id number] [facility]3]. Rashmi kes - Patients [facility] 2019-07-24 17:01:00 2019-07-24 22:33:00 [facility]arted Emergency [facility] [id number] [facility] 2019-07-21 08:45:00 2019-07-21 08:45:00 Registered Surgical Day Care [facility] [id number] [facility] 2019-07-16 08:52:00 2019-07-16 08:52:00 Registered Surgical Day Car e 3 [facility] [id number] Jimmy [facility] 2019-06-27 15:13:00 2019-07-02 12:50:00 Discharged Inpatient [address] [facility] [id number] [facility]3]. Rashmi kes - Patients [facility] 2019-06-22 14:20:00 2019-06-22 14:20:00 Registered Clinic [address] [facility] [id number] [facility] 2019-06-03 05:26:00 2019-06-03 05:26:00 Registered Surgical Day Care [facility] [id number] [facility] 2019-05-04 08:42:00 2019-05-25 22:59:[address] [facility] [id number] [facility] 2019-05-22 08:53:00 2019-05-22 09:23:[address] [facility] [id number] [facility] 2019-05-12 05:07:00 2019-05-12 09:37:[address] [facility] [id number] [facility] 2019-04-24 07:27:00 2019-04-24 11:14:[address] [facility] [id number] [facility] 2019-04-15 07:35:00 2019-04-15 11:07:00 Departed Emergency Room [address] [facility] [id number] [facility] St. Rashmi kes - Patients [facility] 2018-11-10 05:53:00 2018-11-11 11:15:00 Discharged Inpatient (obs) 1 FELICITY ALONSO [facility] [id number] [facility] 2018-05-21 13:09:00 2018-05-21 20:57:00 Departed Emergency Room 1 GIRISH BROWN [facility] [id number] [facility] 2018-01-30 09:12:00 2018-01-30 09:12:00 Registered Clinic 3 SANDRA ARITA [facility] [id number] [facility] 2017-09-01 08:23:00 2017-09-01 11:00:00 Departed Emergency Room [facility] [id number] [facility] 2017-03-13 13:26:00 2017-03-14 10:42:00 Discharged Inpatient (obs) ER NEERAJ TIRADO [facility] [id number] [facility] 2017-03-08 10:13:00 2017-03-11 11:11:00 Discharged Inpatient ER RENA [facility] [id number] [facility] 2017-01-12 18:40:00 2017-01-14 11:30:00 Discharged Inpatient ER SANDRA CHASE [facility] [id number] [facility] Results Test Description Test Time Test Comments Results Result Comments Source Blood leukocytes automated count (number/volume) 2019-10-02 06:30:00 Test Item White Blood Count (test code = 6690-2) 6.30 4.8[facility]10.8 [facility] (number/volume)2019-10-02 06:30:00* Test Item Value Reference Range Interpretation Comments Red Blood Count (test code = 789-8) 3.57 3.6-5.1 [facility] (moles/volume)2019-10-02 06:30:00* Test Item Value Reference Range Interpretation Comments Hemoglobin (test code = 14304-4) 10.6 12.0-16.0 [facility] hematocrit (volume fraction)2019-10-02 06:30:00* Test Item Value Reference Range Interpretation Comments Hematocrit (test code = 4544-3) 32.9 34.2-44.1 [facility] mean corpuscular [id number] 06:30:00* Test Item Value Reference Range Interpretation Comments Mean Corpuscular Volume (test code = 787-2) 92.2 81-99 [facility] mean corpuscular hemoglobin (mass per erythrocyte)2019-10-02 06:30:00* Test Item Value Reference Range Interpretation Comments Mean Corpuscular Hemoglobin (test code = 785-6) 29.7 28-32 [facility] mean corpuscular hemoglobin concentration measurement (mass/volume)2019-10-02 06:30:00* Test Item Value Reference Range Interpretation Comments Mean Corpuscular Hemoglobin Concent (test code = 786-4) 32.2 31-35 [facility]isco[facility]DW ChmWt-[id number] 06:30:00* Test Item Value Reference Range Interpretation Comments Red Cell Distribution Width (test code = 95732-6) 15.2 11.7 -14.4 [facility] platelet count (count/volume)2019-10-02 06:30:00* Test Item Value Reference Range Interpretation Comments Platelet Count (test code = 777-3) 182 140-360 [facility] segmented neutrophil count as percentage of total [id number] 06:30:00* Test Item Value Reference Range Interpretation Comments Neutrophils (%) (Auto) (test code = 86679-2) 79.6 38.7-80.0 [facility] lymphocyte count as percentage ot total [id number] 06:30:00* Test Item Value Reference Range Interpretation Comments Lymphocytes (%) (Auto) (test code = 736-9) 6.2 18.0-39.1 [facility] monocyte count as percentage of total cyttgvsknp3306-12-20 06:30:00* Test Item Value Reference Range Interpretation Comments Monocytes (%) (Auto) (test code = 5905-5) 9.0 4.4-11.3 [facility] eosinophil count as percentage of total qxisxrvghr5830-68-71 06:30:00* Test Item Value Reference Range Interpretation Comments Eosinophils (%) (Auto) (test code = 713-8) 4.1 0.0-6.0 [facility] basophil count as percentage of total ajfcilvtzk6471-51-77 06:30:00* Test Item Value Reference Range Interpretation Comments Basophils (%) (Auto) (test code = 706-2) 0.6 0.0-1.0 [facility]or[facility] procedure less than one hour [id number] 06:30:00* Test Item Value Reference Range Interpretation Comments IM GRANULOCYTES % (test code = IM GRANULOCYTES %) 0.5 0.0- 1.0 [facility] 2019-10-02 06:30:00* Test Item Value Reference Range Interpretation Comments Neutrophils # (Auto) (test code = 751-8) 5.0 2.1-6.9 [facility] lymphocytes count (number/volume) 2019-10-02 06:30:00* Test Item Value Reference Range Interpretation Comments Lymphocytes # (Auto) (test code = 30685-6) 0.4 1.0-3.2 [facility] monocytes automated count (number/volume)2019-10-02 06:30:00* Test Item Value Reference Range Interpretation Comments Monocytes # (Auto) (test code = 742-7) 0.6 0.2-0.8 [facility] eosinophil count 2019-10-02 06:30:00* Test Item Value Reference Range Interpretation Comments Eosinophils # (Auto) (test code = 711-2) 0.3 0.0-0.4 [facility] basophil count (count/volume)2019-10-02 06:30:00* Test Item Value Reference Range Interpretation Comments Basophils # (Auto) (test code = 704-7) 0.0 0.0-0.1 [facility] procedure less than one hour [id number] 06:30:00* Test Item Value Reference Range Interpretation Comments Absolute Immature Granulocyte (auto (anjali t code = Absolute Immature Granulocyte (auto) 0.03 0-0.1 [facility] sodium measurement (moles/volume)2019-10-02 06:25:00* Test Item Value Reference Range Interpretation Comments Sodium Level (test code = 2951-2) 141 136-145 [facility] plasma potassium measurement (moles/volume)2019-10-02 06:25:00* Test Item Value Reference Range Interpretation Comments Potassium Level (test code = 2823-3) 3.7 3.5-5.1 [facility] chloride measurement (moles/volume)2019-10-02 06:25:00* Test Item Value Reference Range Interpretation Comments Chloride Level (test code = 2075-0) 112 98-107 [facility] plasma carbon dioxide, total measurement (moles/volume)2019-10-02 06:25:00* Test Item Value Reference Range Interpretation Comments Carbon Dioxide Level (test code = 2028-9) 22 22-29 [facility] plasma anion [id number] 06:25:00* Test Item Value Reference Range Interpretation Comments Anion Gap (test code = 82792-3) 10.7 8-16 [facility] plasma urea nitrogen measurement (mass/volume)2019-10-02 06:25:00* Test Item Value Reference Range Interpretation Comments Blood Urea Nitrogen (test code = 3094-0) 17 7-26 [facility] plasma creatinine measurement (mass/volume)2019-10-02 06:25:00* Test Item Value Reference Range Interpretation Comments Creatinine (test code = 2160-0) 1.08 0.57-1.11 [facility] plasma urea nitrogen/creatinine mass [id number] 06:25:00* Test Item Value Reference Range Interpretation Comments BUN/Creatinine Ratio (test code = 3097-3) 16 6-25 [facility] filtration rate (GFR) fjtfztqvqkqnv1384-98-33 06:25:00* Test Item Value Reference Range Interpretation Comments Estimat Glomerular Filtration Rate (test code = 906830831) 49 >60 Ranges were taken from the National Kidney Disease Education Program and the [facility] literature.Reference ranges:60 or greater: Btstzi74-27 ( for 3 consecutive months): Chronic kidney disease 15 or less: Kidney failureTexas Health FriscoGlucose lnczqornwqy3890-06-08 06:25:00* Test Item Value Reference Range Interpretation Comments Glucose Level (test code = NEQ2458) 106 74-118 [facility] plasma calcium measurement (mass/volume)2019-10-02 06:25:00* Test Item Value Reference Range Interpretation Comments Calcium Level (test code = 18556-7) 8.0 8.4-10.2 [facility] plasma total bilirubin measurement (mass/volume)2019-10-02 06:25:00* Test Item Value Reference Range Interpretation Comments Total Bilirubin (test code = 1975-2) 0.6 0.2-1.2 [facility]iscoFluoroscopic procedure less than one hour [id number] 06:25:00* Test Item Value Reference Range Interpretation Comments Aspartate Amino Transf (AST/SGOT) (test code = Aspartate Amino Transf (AST/SGOT)) 19 5-34 [facility] or plasma alanine aminotransferase measurement (enzymatic activity/volume)2019-10-02 06:25:00* Test Item Value Reference Range Interpretation Comments Alanine Aminotransferase (ALT/SGPT) (test code = 1742-6) 10 0-55 [facility] or plasma protein measurement (mass/volume)2019-10-02 06:25:00* Test Item Value Reference Range Interpretation Comments Total Protein (test code = 2885-2) 5.7 6.5-8.1 [facility] plasma albumin measurement (mass/volume)2019-10-02 06:25:00* Test Item Value Reference Range Interpretation Comments Albumin (test code = 1751-7) 2.7 3.5-5.0 [facility] globulin measurement (mass/volume) 2019-10-02 06:25:00* Test Item Value Reference Range Interpretation Comments Globulin (test code = 68914-4) 3.0 2.3-3.5 [facility] or plasma albumin/globulin mass bkrqn9597-14-12 06:25:00* Test Item Value Reference Range Interpretation Comments Albumin/Globulin Ratio (test code = 1759-0) 0.9 0.8-2.0 [facility] or plasma alkaline phosphatase measurement (enzymatic activity/volume)2019-10-02 06:25:00* Test Item Value Reference Range Interpretation Comments Alkaline Phosphatase (test code = 6768-6) 64 40-150 [facility] or plasma creatine kinase measurement (enzymatic activity/volume)2019-10-02 06:25:00* Test Item Value Reference Range Interpretation Comments Creatine Kinase (test code = 2157-6) 79 29-168 [facility] or plasma creatine kinase MB measurement (mass/volume)2019-10-02 06:25:00* Test Item Value Reference Range Interpretation Comments Creatine Kinase MB (test code = 73749-9) 0.80 0-5.0 [facility]Troponin I measurement by highly sensitive enzyme blqwjolffvv5853-88-51 06:25:00* Test Item Value Reference Range Interpretation Comments Troponin I (test code = 12564-2) 0.020 0-0.300 [facility] or plasma thyrotropin measurement by detection limit <= 0.005 miu/l (units/volume)2019-10-02 06:25:00* Test Item Value Reference Range Interpretation Comments Thyroid Stimulating Hormone (TSH) (test code = 91037-0) 2.554 0.350-4.940 [facility]iscoRIBS UNILAT W/FJW3086-38-64 17:25:00 [facility] [address] [place] [address] Patient Name: YUE RAMSEY MR #: [id number] : 1935 Age/Sex: 84/F Req #: [id number] Adm Physician: Ordered by: RICKI QUICK NP Report #: [id number] Location: ER om/Bed: Procedure: [id number] DX/RIBS UN ILAT W/CXR Exam Date: 10/01/19 Exam Time: 1630 REPORT STATUS: Signed Left rib multip le views CPT code: 95617 History: Fall, left rib pain Comparison: None. Findings: The bones are diffusely demineralized. The rib struc tures on the left appear intact. Nondisplaced fracture of the seventh rib, pos terior aspect. Chest PA single view demonstrates dual-lead pacemaker wire s in the right atrium and right ventricle. No pleural effusion, pulmonary cont usion, or pneumothorax. There is a stent in the expected location of the left renal artery. IMPRESSION: Fracture of the posterior aspect of the left seventh rib. No evidence of pleural or pulmonary injury. Signed by: Dr. Louis Acosta MD on 10/01/2019 5:27 PM Dictated By: LOUIS ACOSTA MD 26 Transcribed By: GELY on 10/01/191726 COPY TO: RICKI QUICK FLEECE TIER PELVIS AP 1-2 [id number] 17:23:00 [place] [address] Patient Name: YUE RAMSEY MR #: [id number] : 1935 Age/Sex: 84/F Req #: [id number] Adm Physician: Ordered by: RICKI QUICK FLEECE TIER Report #: [id number] Location: ER Room/Bed: Procedure: [id number] DX/PELVIS AP 1-2 VIEWS Exam Date: 10/01/19 Exam Time: 1629 REPORT STATUS: Signed Pelvis C PT code: 59701 Indication: fall 20191001 Technique: A.P . view of the pelvis Comparison: CT chest, abdomen, pelvis 07/24/2019 Findings: The bones are diffusely demineralized. There is no evidence of fr acture, dislocation, focal osseous lesion. There are mild degenerative changes of the lower lumbar spine. No diastases of the pubic symphysis or sacroiliac joints. Rounded subcutaneous calcifications in the posterior pelvis are sta ble. IMPRESSION: No acute traumatic pathology. Signed by: Dr. Tyron MD on 10/01/2019 5:24 PM Dictated By: LOUIS ACOSTA MD 23 Transcribed B y: GELY on 10/01/191723 COPY TO: RICKI QUICK FLEECE TIER CT CERVICAL SPINE [id number] 16:54:00 [place] [address] Patient Name: YUE RAMSEY MR #: [id number] : 1935 Age/Sex: 84/F Req #: [id number] Adm Physician: GAETANO AVILA MD Ordered by: RICKI QUICK FLEECE TIER Report #: [id number] Location: [facility] Room/Bed: [place] [address] Procedure: [id number] CT/CT CERV ICAL SPINE WO Exam Date: 10/01/19 Exam Time: 1630 REPORT STATUS: Signed History: Fal l, pain Comparison studies: CTA of the brain and neck to 06/29/2019 Te chnique: Axial images were obtained from the brain and cervical spine. Coron al and sagittal images reconstructed from the axial data. Dose modulation, ite rative reconstruction, and/or weight based adjustment of the mA/kV was utiliz ed to reduce the radiation dose to as low as reasonably achievable. Intr avenous contrast: None Findings: Head CT: Scalp/skull: No abno rmalities. No fractures, blastic or lytic lesions. Brain sulci: Mildly prom inent. Ventricles: Mild compensatory dilatation. No hydrocephalus. Extra- axial spaces: No masses. No fluid collections. Parenchyma: Patchy il l-defined periventricular hypodensities are nonspecific but most consistent wi th mild chronic microvascular ischemic changes. No masses, hemorrhage, acute or chronic cortical vascular insults. Sellar/suprasellar region: No abnorma lities. Craniocervical junction: Patent foramen magnum. No Chiari one malform ation. 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 Cervica l spine CT: Airway: Patent. Fractures: None. Soft tissues: No gross abnormalities. Atlantoaxial articulation: Intact. Alignment: Normal lordo sis. No scoliosis. Grade 1 anterolisthesis of C3 on C4, and trace anterolisthe sis of C6 on C7 and C7 on T1. Cervicomedullary junction: No abnormalities. Pat ent foramen magnum. Vertebrae: No infection or neoplasm. Degenerati ve changes: Multilevel cervical spondylosis is present with varying degrees o f disc height loss, worst at C5-C6, posterior disc osteophyte complexes, uncov ertebral hypertrophy, and facet hypertrophy. There is at least moderate spinal canal stenosis at C5-C6 from a posterior disc osteophyte complex. There is al so multilevel moderate to severe neural foraminal stenosis bilaterally at C3-C 4 and C5-C6, C4-C5 and C6-C7 on the right. Incidental findings: None. IMPRESSION: Head CT: No acute abnormalities. Chronic findings: 1. Mild global parenchymal volume loss. 2. Mild chronic microvascular ische stuart changes. Cervical spine CT: 1. No acute osseous injury. 2. Cannot adequately evaluate for ligament, spinal cord and or vascular abnormalities. 3. Multilevel cervical spondylosis with at least moderate degenerative spinal canal stenosis at C5-C6 and varying degrees of neural foraminal stenosis as above. Signed by: DR Trenton Riacrdo M.D. on 10/01/2019 7:19 PM Dictated By: TRENTON HOOVER MD 18 Transcribed By: GELY on 10/01/191918 COPY TO: RICKI QUICK NP CT BRAIN [id number] 16:54:00 [place] [address] Patient Name: YUE RAMSEY MR #: [id number] : 1935 [facility] 84[id number] Req #: [id number] Adm Physician: GAETANO AVILA MD Ordered by: RICKI QUICK NP Report #: [id number] Location: [facility]/Bed: [place] [address] Procedure: [id number] CT/CT SHAI Neff WO Exam Date: 10/01/19 Exam Time: 1630 REPORT STATUS: Signed History: Fall, pain Comparison studies: CTA of the brain and neck to 06/29/2019 Technique: Axial images were obtained from the brain and cervical spine. Coronal and sa gittal images reconstructed from the axial data. Dose modulation, iterative re construction, and/or weight based adjustment of the mA/kV was utilized to red uce the radiation dose to as low as reasonably achievable. Intravenous c ontrast: None Findings: Head CT: Scalp/skull: No abnormalities . No fractures, blastic or lytic lesions. Brain sulci: Mildly prominent. Ventricles: Mild compensatory dilatation. No hydrocephalus. Extra-axial spa ruben: No masses. No fluid collections. Parenchyma: Patchy ill-defined periventricular hypodensities are nonspecific but most consistent with mild c hronic microvascular ischemic changes. No masses, hemorrhage, acute or chroni c cortical vascular insults. Sellar/suprasellar region: No abnormalities. Craniocervical junction: Patent foramen magnum. No Chiari one malformation. 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 Cervical spine C T: Airway: Patent. Fractures: None. Soft tissues: No gross abnormali ties. Atlantoaxial articulation: Intact. Alignment: Normal lordosis. No s coliosis. Grade 1 anterolisthesis of C3 on C4, and trace anterolisthesis of C6 on C7 and C7 on T1. Cervicomedullary junction: No abnormalities. Patent manuel en magnum. Vertebrae: No infection or neoplasm. Degenerative change s: Multilevel cervical spondylosis is present with varying degrees of disc he ight loss, worst at C5-C6, posterior disc osteophyte complexes, uncovertebral hypertrophy, and facet hypertrophy. There is at least moderate spinal canal stenosis at C5-C6 from a posterior disc osteophyte complex. There is also mult ilevel moderate to severe neural foraminal stenosis bilaterally at C3-C4 and C 5-C6, C4-C5 and C6-C7 on the right. Incidental findings: None. IMPRE SSION: Head CT: No acute abnormalities. Chronic findings: 1. Mild global parenchymal volume loss. 2. Mild chronic microvascular ischemic grove es. Cervical spine CT: 1. No acute osseous injury. 2. Cannot adequate ly evaluate for ligament, spinal cord and or vascular abnormalities. 3. Mul tilevel cervical spondylosis with at least moderate degenerative spinal canal stenosis at C5-C6 and varying degrees of neural foraminal stenosis as above. Signed by: DR Trenton Ricardo M.D. on 10/01/2019 7:19 PM Dictated By: TRENTON HOOVER MD 18 COPY TO: WYATT QUICK FLEECE TIER Prothrombin time (PT) in platelet poor plasma by coagulation wratg1493-10-21 15:30:00* Test Item Value Reference Range Interpretation Comments Prothrombin Time (test code = 5902-2) 13.0 11.9-14.5 [facility]INR in Platelet poor plasma by Coagulation slnti4756-42-46 15:30:00* Test Item Value Reference Range Interpretation Comments Prothromb Time International Ratio (test code = 6301-6) 0.93 Oral Anticoagulant Therapy INR Values:1. Low Intensity Therapy 1.5 - 2.02 . Moderate Intensity Therapy 2.0 - 3.03. High Intensity Therapy(1) 2.5 - 3. 54. High Intensity Therapy(2) 3.0 - 4.05. Panic Value INR > 5.0 [facility]iscoActivated partial thromboplastin time (aPTT) in platelet poor plasma by coagulation auluk6846-10-29 15:30:00* Test Item Value Reference Range Interpretation Comments Activated Partial Thromboplast Time (test code = 99445-9) 25.3 23.8-35.5 [facility]iscoUrine color thyyvfuowodaf2992-30-69 15:30:00* Test Item Value Reference Range Interpretation Comments Urine Color (test code = 5778-6) YELLOW YELLOW [facility]iscoUrine wjtmfty5869-02-48 15:30:00* Test Item Value Reference Range Interpretation Comments Urine Clarity (test code = 10797-8) SL CLOUDY CLEAR [facility] Centerpecific gravity of Urine by Test strip 2019-10-01 15:30:00* Test Item Value Reference Range Interpretation Comments Urine Specific [place] (test code = 5811-5) 1.020 1.010-1.02 5 [facility] pH measurement by automated test lbrzu2930-99-41 15:30:00* Test Item Value Reference Range Interpretation Comments Urine pH (test code = 56273-4) 5.5 5-7 [facility]iscoUrine leukocyte esterase detection by hpilfjsu3190-19-19 15:30:00* Test Item Value Reference Range Interpretation Comments Urine Leukocyte Esterase (test code = 5799-2) SMALL NEGATIVE [facility]iscoUrine nitrite rsuwugszl0111-12-31 15:30:00* Test Item Value Reference Range Interpretation Comments Urine Nitrite (test code = 25537-9) NEGATIVE NEGATIVE [facility]iscoUrine protein measurement by test strip (mass/volume)2019-10-01 15:30:00* Test Item Value Reference Range Interpretation Comments Urine Protein (test code = 5804-0) NEGATIVE NEGATIVE [facility]iscoUrine glucose pxxbrxzna8881-13-38 15:30:00* Test Item Value Reference Range Interpretation Comments Urine Glucose (UA) (test code = 2349-9) NEGATIVE NEGATIVE [facility]iscoUrine ketones detection by automated test hftgd0846-89-14 15:30:00* Test Item Value Reference Range Interpretation Comments Urine Ketones (test code = 70664-8) NEGATIVE NEGATIVE [facility]iscoUrine urobilinogen measurement by test strip (mass/volume)2019-10-01 15:30:00* Test Item Value Reference Range Interpretation Comments Urine Urobilinogen (test code = 18170-7) 0.2 0.2-1 [facility]iscoUrine total bilirubin measurement (mass/volume)2019-10-01 15:30:00* Test Item Value Reference Range Interpretation Comments Urine Bilirubin (test code = 1978-6) NEGATIVE NEGATIVE [facility]iscoUrine erythrocytes nupdgrwnf9699-30-12 15:30:00* Test Item Value Reference Range Interpretation Comments Urine Blood (test code = 97947-5) NEGATIVE NEGATIVE [facility]iscoAutomated urine sediment leukocyte count by microscopy (number/high power field)2019-10-01 15:30:00* Test Item Value Reference Range Interpretation Comments Urine WBC (test code = 5821-4) 6-10 0-5 [facility]iscoErythrocytes detection in urine sediment by light uzffqqlqvz4801-37-42 15:30:00* Test Item Value Reference Range Interpretation Comments Urine RBC (test code = 74274-4) NONE 0-5 [facility]iscoBacteria detection in urine sediment by light olrypwdwmd3519-87-08 15:30:00* Test Item Value Reference Range Interpretation Comments Urine Bacteria (test code = 02866-2) MANY NONE [facility]iscoEpithelial cells detection in urine sediment by light bmlzjaucvy1073-03-63 15:30:00* Test Item Value Reference Range Interpretation Comments Urine Epithelial Cells (test code = 49218-1) MANY NONE [facility]iscoTransitional cells detection in urine sediment by light deeaqwrtyy8359-42-24 15:30:00* Test Item Value Reference Range Interpretation Comments Urine Transitional Epithelial Cells (test code = 8249-5) MODERATE NONE [facility]iscoThyroid Stimulating Hormone (TSH) 2019-09-01 09:12:00* Test Item Value Reference Range Interpretation Comments Thyroid Stimulating Hormone (TSH) (test code = 63875-3) 1.441 0.350-4.940 [facility] Centerodium Ezdek4874-87-90 06:04:00* Test Item Value Reference Range Interpretation Comments Sodium Level (test code = 2951-2) 142 136-145 [facility]iscoPotassium Paqcp6061-09-98 06:04:00* Test Item Value Reference Range Interpretation Comments Potassium Level (test code = 2823-3) 4.4 3.5-5.1 [facility]iscoChloride Ahwnw1693-19-90 06:04:00* Test Item Value Reference Range Interpretation Comments Chloride Level (test code = 2075-0) 111 98-107 H [facility]iscoCarbon Dioxide Jqvfm6736-67-42 06:04:00* Test Item Value Reference Range Interpretation Comments Carbon Dioxide Level (test code = 2028-9) 24 22-29 [facility]iscoAnion Ysz3880-40-81 06:04:00* Test Item Value Reference Range Interpretation Comments Anion Gap (test code = 52835-2) 11.4 8-16 [facility]iscoBlood Urea Eusqerrv9748-76-14 06:04:00* Test Item Value Reference Range Interpretation Comments Blood Urea Nitrogen (test code = 3094-0) 20 7-26 [facility]iscoCreatinine2020-04-08 06:04:00* Test Item Value Reference Range Interpretation Comments Creatinine (test code = 2160-0) 1.43 0.57-1.11 H [facility]iscoBUN/Creatinine Vyfjx4429-90-59 06:04:00* Test Item Value Reference Range Interpretation Comments BUN/Creatinine Ratio (test code = 3097-3) 14 6-25 [facility] FriscoEstimat Glomerular Filtration Rate 2019-09-01 06:04:00* Test Item Value Reference Range Interpretation Comments Estimat Glomerular Filtration Rate (test code = 624292471) 35 >60 L Ranges were taken from the National Kidney Disease Education Program and the [facility] Foundation literature.Reference ranges:60 or greater: Bduyjt63-51 ( for 3 consecutive months): Chronic kidney disease 15 or less: Kidney failureTexas Health FriscoGlucose Xuben5354-97-88 06:04:00* Test Item Value Reference Range Interpretation Comments Glucose Level (test code = ECD7827) 105 74-118 [facility]iscoCalcium Mqqlu9161-36-75 06:04:00* Test Item Value Reference Range Interpretation Comments Calcium Level (test code = 47747-4) 8.4 8.4-10.2 [facility]iscoTotal Lqngwmvdy1728-74-07 06:04:00* Test Item Value Reference Range Interpretation Comments Total Bilirubin (test code = 1975-2) 0.6 0.2-1.2 [facility] FriscoAspartate Amino Transf (AST/SGOT) 2019-09-01 06:04:00* Test Item Value Reference Range Interpretation Comments Aspartate Amino Transf (AST/SGOT) (test code = Aspartate Amino Transf (AST/SGOT)) 20 5-34 [facility] FriscoAlanine Aminotransferase (ALT/SGPT) 2019-09-01 06:04:00* Test Item Value Reference Range Interpretation Comments Alanine Aminotransferase (ALT/SGPT) (test code = 1742-6) 12 0-55 [facility]iscoTotal Yazsdrx7514-17-93 06:04:00* Test Item Value Reference Range Interpretation Comments Total Protein (test code = 2885-2) 6.4 6.5-8.1 L [facility] FriscoAlbumin2020-04-08 06:04:00* Test Item Value Reference Range Interpretation Comments Albumin (test code = 1751-7) 2.9 3.5-5.0 L [facility] FriscoGlobulin2020-04-08 06:04:00* Test Item Value Reference Range Interpretation Comments Globulin (test code = 89306-8) 3.5 2.3-3.5 [facility] FriscoAlbumin/Globulin Izoxy0672-94-02 06:04:00 * Test Item Value Reference Range Interpretation Comments Albumin/Globulin Ratio (test code = 1759-0) 0.8 0.8-2.0 [facility]iscoAlkaline Sfnehzxrwjb0238-62-18 06:04:00* Test Item Value Reference Range Interpretation Comments Alkaline Phosphatase (test code = 6768-6) 82 40-150 [facility]iscoWhite Blood Tcbyf1351-32-29 05:57:00* Test Item Value Reference Range Interpretation Comments White Blood Count (test code = 6690-2) 7.30 4.8-10.8 [facility] FriscoRed Blood Polco3552-16-58 05:57:00* Test Item Value Reference Range Interpretation Comments Red Blood Count (test code = 789-8) 3.75 3.6-5.1 [facility]iscoHemoglobin2020-04-08 05:57:00* Test Item Value Reference Range Interpretation Comments Hemoglobin (test code = 74494-6) 11.0 12.0-16.0 L [facility]iscoHematocrit2020-04-08 05:57:00* Test Item Value Reference Range Interpretation Comments Hematocrit (test code = 4544-3) 34.7 34.2-44.1 [facility] FriscoMean Corpuscular Rbcxwc4988-40-24 05:57:00* Test Item Value Reference Range Interpretation Comments Mean Corpuscular Volume (test code = 787-2) 92.5 81-99 [facility]iscoMean Corpuscular Oufhlyakkz9408-61-42 05:57:00* Test Item Value Reference Range Interpretation Comments Mean Corpuscular Hemoglobin (test code = 785-6) 29.3 28-32 [facility] FriscoMean Corpuscular Hemoglobin Concent 2019-09-01 05:57:00* Test Item Value Reference Range Interpretation Comments Mean Corpuscular Hemoglobin Concent (test code = 786-4) 31.7 31-35 [facility]iscoRed Cell Distribution Zsvxc0570-83-87 05:57:00* Test Item Value Reference Range Interpretation Comments Red Cell Distribution Width (test code = 99166-1) 14.9 11.7 -14.4 H [facility] FriscoPlatelet Ckncs7579-51-35 05:57:00* Test Item Value Reference Range Interpretation Comments Platelet Count (test code = 777-3) 221 140-360 [facility]iscoNeutrophils (%) (Auto)2019-09-01 05:57:00 * Test Item Value Reference Range Interpretation Comments Neutrophils (%) (Auto) (test code = 65369-0) 76.9 38.7-80.0 [facility]iscoLymphocytes (%) (Auto)2019-09-01 05:57:00 * Test Item Value Reference Range Interpretation Comments Lymphocytes (%) (Auto) (test code = 736-9) 7.9 18.0-39.1 L [facility]iscoMonocytes (%) (Auto)2019-09-01 05:57:00* Test Item Value Reference Range Interpretation Comments Monocytes (%) (Auto) (test code = 5905-5) 8.5 4.4-11.3 [facility]iscoEosinophils (%) (Auto)2019-09-01 05:57:00 * Test Item Value Reference Range Interpretation Comments Eosinophils (%) (Auto) (test code = 713-8) 5.9 0.0-6.0 [facility]iscoBasophils (%) (Auto)2019-09-01 05:57:00* Test Item Value Reference Range Interpretation Comments Basophils (%) (Auto) (test code = 706-2) 0.5 0.0-1.0 [facility]iscoIM GRANULOCYTES %2019-09-01 05:57:00* Test Item Value Reference Range Interpretation Comments IM GRANULOCYTES % (test code = IM GRANULOCYTES %) 0.3 0.0- 1.0 [facility]iscoNeutrophils # (Auto)2019-09-01 05:57:00* Test Item Value Reference Range Interpretation Comments Neutrophils # (Auto) (test code = 751-8) 5.6 2.1-6.9 [facility]iscoLymphocytes # (Auto)2019-09-01 05:57:00* Test Item Value Reference Range Interpretation Comments Lymphocytes # (Auto) (test code = 71814-9) 0.6 1.0-3.2 L [facility]iscoMonocytes # (Auto)2019-09-01 05:57:00* Test Item Value Reference Range Interpretation Comments Monocytes # (Auto) (test code = 742-7) 0.6 0.2-0.8 [facility]iscoEosinophils # (Auto)2019-09-01 05:57:00* Test Item Value Reference Range Interpretation Comments Eosinophils # (Auto) (test code = 711-2) 0.4 0.0-0.4 [facility]iscoBasophils # (Auto)2019-09-01 05:57:00* Test Item Value Reference Range Interpretation Comments Basophils # (Auto) (test code = 704-7) 0.0 0.0-0.1 [facility]iscoAbsolute Immature Granulocyte (auto 2019-09-01 05:57:00* Test Item Value Reference Range Interpretation Comments Absolute Immature Granulocyte (auto (anjali t code = Absolute Immature Granulocyte (auto) 0.02 0-0.1 [facility]iscoCreatine Kinase KC3714-44-39 14:19:00* Test Item Value Reference Range Interpretation Comments Creatine Kinase MB (test code = 08733-0) 1.20 0-5.0 [facility] FriscoTroponin H7010-99-38 14:19:00* Test Item Value Reference Range Interpretation Comments Troponin I (test code = 11895-6) 0.012 0-0.300 [facility]iscoCreatine Bghsgr8489-51-55 14:08:00* Test Item Value Reference Range Interpretation Comments Creatine Kinase (test code = 2157-6) 51 29-168 [facility]iscoCHEST SINGLE (PORTABLE)2019-08-31 14:05:00 [place] [address] Patient Name: YUE RAMSEY MR #: [id number] : 1935 Age/Sex: 83/F Req #: [id number] Adm Physician: SANDRA CHASE MD Ordered by: KIET BULL MD Report #: [id number] Location: MED/SURG2 Room/Bed: [facility] Procedure: [id number] DX/CHEST SINGLE (PORTABLE) Exam Date: 08/31/19 Exam Time: 1330 REPORT STATUS: Sig leeryo EXAMINATION: CHEST SINGLE (PORTABLE) INDICATION: Postprocedural COMPARISON: Chest radiograph 08/30/2019 FINDINGS: LINES/TUBES :Interval placement of left chest pacer. LUNGS:The lungs are well-inflated. Unchanged bilateral interstitial opacities. No focal consolidation. PLEU RA:No pleural effusion or pneumothorax. MEDIASTINUM:The cardiomediastinal s ilhouette appears unchanged in size and shape. Atherosclerotic calcifications of the thoracic aorta. BONES/SOFT TISSUES:No acute osseous injury. ABD OMEN:No free air under the diaphragm. IMPRESSION: No pneumothorax sta tus post interval left chest pacer placement. A linear radiopaque structure ov erlies the pacer on the left chest, possibly external to the patient. Sig leeroy by: Gilles Jimenez MD on 08/31/2019 2:07 PM Dictated By: GILLES JIMENEZ MD El ectronically Signed By: GILLES JIMENEZ MD on 08/31/19 140 Transcribed By: GELY on 08/31/191406 COPY TO: KIET BULL MD Triglycerides Dcyaw4031-28-18 03:29:00* Test Item Value Reference Range Interpretation Comments Triglycerides Level (test code = 2571-8) 161 0-149 H [facility]iscoCholesterol Kppcw8948-00-38 03:29:00* Test Item Value Reference Range Interpretation Comments Cholesterol Level (test code = 2093-3) 207 0-199 H Less than 200 mg/dL Low Gder965 - 239 mg/dL Borderline Ufsq543 m g/dl and greater High Risk [facility] FriscoLDL Wzliruaxvii5643-48-22 03:29:00* Test Item Value Reference Range Interpretation Comments LDL Cholesterol (test code = 2089-1) 135 60-130 H [facility] FriscoHDL Ytbmjvjzsqx2976-56-74 03:29:00* Test Item Value Reference Range Interpretation Comments HDL Cholesterol (test code = 2085-9) 40 40-60 [facility]iscoCholesterol/HDL Woxzo3299-79-23 03:29:00 * Test Item Value Reference Range Interpretation Comments Cholesterol/HDL Ratio (test code = 9830-1) 5.2 3.0-3.6 [facility] triglyceride measurement (mass/volume)2019-08-31 02:43:00* Test Item Value Reference Range Interpretation Comments Triglycerides Level (test code = 2571-8) 161 0-149 [facility] cholesterol measurement (mass/volume)2019-08-31 02:43:00* Test Item Value Reference Range Interpretation Comments Cholesterol Level (test code = 2093-3) 207 0-199 Less than 200 mg/dL Low Mdqo249 - 239 mg/dL Borderline Ysry932 m g/dl and greater High Risk [facility] cholesterol in LDL measurement (mass/volume) 2019-08-31 02:43:00* Test Item Value Reference Range Interpretation Comments LDL Cholesterol (test code = 2089-1) 135 60-130 [facility] cholesterol in HDL measurement (mass/volume)2019-08-31 02:43:00* Test Item Value Reference Range Interpretation Comments HDL Cholesterol (test code = 2085-9) 40 40-60 [facility] plasma total cholesterol/cholesterol in HDL mass kphbw7585-15-43 02:43:00* Test Item Value Reference Range Interpretation Comments Cholesterol/HDL Ratio (test code = 9830-1) 5.2 3.0-3.6 [facility] IED5959-06-09 20:30:00* Test Item Value Reference Range Interpretation Comments Urine WBC (test code = 5821-4) NONE 0-5 [facility] [id number] 20:30:00* Test Item Value Reference Range Interpretation Comments Urine RBC (test code = 64235-0) 0-5 0-5 [facility] Yfoszuzm0998-65-40 20:30:00* Test Item Value Reference Range Interpretation Comments Urine Bacteria (test code = 80261-1) NONE NONE [facility] Epithelial Xfogx4023-24-95 20:30:00 * Test Item Value Reference Range Interpretation Comments Urine Epithelial Cells (test code = 56452-6) RARE NONE [facility] Heerl7988-71-89 20:17:00* Test Item Value Reference Range Interpretation Comments Urine Color (test code = 5778-6) YELLOW YELLOW [facility] Smpmyqz3076-93-96 20:17:00* Test Item Value Reference Range Interpretation Comments Urine Clarity (test code = 20725-4) CLEAR CLEAR [facility] Specific Obpwenu1443-38-61 20:17:00 * Test Item Value Reference Range Interpretation Comments Urine Specific [place] (test code = 5811-5) 1.025 1.010-1.02 5 [facility] [id number] 20:17:00* Test Item Value Reference Range Interpretation Comments Urine pH (test code = 19771-1) 7 5-7 [facility] Leukocyte Teualyiu6793-76-67 20:17:00* Test Item Value Reference Range Interpretation Comments Urine Leukocyte Esterase (test code = 5799-2) NEGATIVE NEGATIVE [facility] Tcsujuc5455-03-32 20:17:00* Test Item Value Reference Range Interpretation Comments Urine Nitrite (test code = 74803-3) NEGATIVE NEGATIVE [facility] Wctoyrt2893-11-23 20:17:00* Test Item Value Reference Range Interpretation Comments Urine Protein (test code = 5804-0) NEGATIVE NEGATIVE [facility] Glucose (UA)2019-08-30 20:17:00* Test Item Value Reference Range Interpretation Comments Urine Glucose (UA) (test code = 2349-9) NEGATIVE NEGATIVE [facility] Srekrtp2910-98-26 20:17:00* Test Item Value Reference Range Interpretation Comments Urine Ketones (test code = 71638-3) NEGATIVE NEGATIVE [facility] Iuacuhckpptq3846-84-87 20:17:00* Test Item Value Reference Range Interpretation Comments Urine Urobilinogen (test code = 66787-6) 0.2 0.2-1 [facility] Tcxcyffar2284-65-34 20:17:00* Test Item Value Reference Range Interpretation Comments Urine Bilirubin (test code = 1978-6) NEGATIVE NEGATIVE [facility] Tapki6407-77-64 20:17:00* Test Item Value Reference Range Interpretation Comments Urine Blood (test code = 65646-4) NEGATIVE NEGATIVE [facility]isco[facility]th[facility] Xlke8610-17-00 19:34:00* Test Item Value Reference Range Interpretation Comments Prothrombin Time (test code = 5902-2) 12.6 11.9-14.5 [facility]th[facility] Time International Ratio 2019-08-30 19:34:00* Test Item Value Reference Range Interpretation Comments Prothromb Time International Ratio (test code = 6301-6) 0.89 Oral Anticoagulant Therapy INR Values:1. Low Intensity Therapy 1.5 - 2.02 . Moderate Intensity Therapy 2.0 - 3.03. High Intensity Therapy(1) 2.5 - 3. 54. High Intensity Therapy(2) 3.0 - 4.05. Panic Value INR > 5.0 [facility] Partial Thromboplast Time 2019-08-30 19:34:00* Test Item Value Reference Range Interpretation Comments Activated Partial Thromboplast Time (test code = 17895-1) 29.0 23.8-35.5 [facility]2019-08-30 19:30:00 [place] [address] Patient Name: YUE RAMSEY MR #: [id number] : 1935 Age/Sex: 83/F Req #: [id number] Adm Physician: Ordered by: MÓNICA HINDS DO Report #: [id number] Location: ER Room/Bed: Procedure: [id number] DX/CHEST SINGLE (PORTABLE) Exam Date: 08/30/19 Adela strange Time: 1840 REPORT STATUS: Signed EXAMINATION: CHEST SINGLE (PORTABLE) INDICATION: CP NONE NOW [id number] COMPARISON: CTA chest 07/24/2019 and chest radi ograph 07/24/2019 FINDINGS: AP view TUBES and LINES: None. LUNGS: Lungs are well inflated. Bilateral interstitial edema, mildly decr eased since prior exam. No new consolidations. PLEURA: No pleural effusi on or pneumothorax. HEART AND MEDIASTINUM: Stable mild enlargement of the cardiac silhouette. Moderate calcifications of the aortic arch. BONES AN D SOFT TISSUES: No acute osseous lesion. Soft tissues are unremarkable. UPPER ABDOMEN: No free air under the diaphragm. IMPRESSION: Bilater al interstitial edema, mildly improved since prior exam. No new consolidations . Signed by: Dr. Angelica Lagunas M.D. on 08/30/2019 7:32 PM Dictated By: ANGELICA LAGUNAS MD 31 Transcribed By: GELY on 08/30/191931 COPY TO: MÓNICA HINDS DO Creatine Fgjket7156-03-54 22:58:00* Test Item Value Reference Range Interpretation Comments Creatine Kinase (test code = 2157-6) 20 29-168 L [facility] Kinase [id number] 22:58:00* Test Item Value Reference Range Interpretation Comments Creatine Kinase MB (test code = 63737-6) 0.40 0-5.0 [facility]iscoTroponin [id number] 22:58:00* Test Item Value Reference Range Interpretation Comments Troponin I (test code = ING9702) 0.017 0-0.300 [facility] ABD/DFFKFG9578-09-55 21:08:00 [facility] [place] [address] Patient Name: YUE RAMSEY MR #: [id number] : 1935 Age/Sex: 83/F Req #: [id number] [facility] Physician: Ordered by: HAWA GAGNON MD Report #: [id number] Location: ER Room/Bed: Procedure: [id number] CT/CTA ABD/PELVIS Exam Date: 07/24/19 Exam Time: 20 00 REPORT STATUS: Signed EXAMINA TION: CT angiography of the chest, abdomen and pelvis with contrast. TECH NIQUE: Spiral CT images of the chest, abdomen and pelvis were performed from the lung apices to the lesser trochanters after the intravenous administration of 100 cc of Isovue 370. Coronal and sagittal reformatted images were obtaine d. COMPARISON: Chest radiograph 07/24/2019, CT abdomen and pelvis 9 CLINICAL HISTORY:Concern for aortic dissection, sudden onset chest pain DISCUSSION: CHEST: Vasculature: Atherosclerotic calcification of the [place] coronary arteries, aortic arch, and great vessel origins which are otherwise normal in caliber and configuration. There is no ectasia or aneu rysmal dilatation of the ascending thoracic aorta. There is short segment foca l ectasia of the distal descending thoracic aorta (2.8 cm as seen on coronal i mage 59. There is no dissection or pseudoaneurysm. Mild calcified and noncalci fied atherosclerotic plaque along the course of the thoracoabdominal aorta. Ce liac axis, SMA, and [place] origins are patent. Patent left renal artery stent. Mo derate right renal artery ostial stenosis. The abdominal aorta is nonaneurysma l. Left hepatic artery is replaced to the left gastric artery area hepatic art marty anatomy otherwise conventional. LUNGS AND AIRWAYS: Groundglass opaci ties with smooth interlobular septal thickening throughout the lungs, more con spicuous in the dependent lower lobes, compatible with interstitial edema. No airspace consolidation or bronchiectasis. Trachea, mainstem bronchi, and centr al lobar and segmental bronchi are patent. PLEURA: The pleural space s are clear. HEART AND MEDIASTINUM: The left thyroid lobe is hypoplastic or may have been removed. No axillary, hilar, or mediastinal lymphadenopathy. Th is study was not optimized for detection of pulmonary embolic disease; however , no central filling defect within the main, right, or left pulmonary artery. Large sliding hiatal hernia with an adjacent distal to esophageal lymph node l ikely reactive. LYMPH NODES: No significant mediastinal, hilar or axillary lymphadenopathy is seen. ABDOMEN/PELVIS: HEPATOBILIARY:No focal hepatic lesions. No intrahepatic biliary ductal dilation. The gallblad reece is normal. SPLEEN: Calcified granuloma within the body of the spleen. PANCREAS: No focal masses or ductal dilatation. ADRENALS: No adrenal no dules. KIDNEYS/URETERS: Bilateral simple cysts in the kidneys, measuring up to 2.3 cm on the left and 5 cm on the right. All measurable lesions have aver age internal attenuation less than 20 Hounsfield units. Additional smaller sub centimeter hypoattenuating lesions throughout both kidneys are too small to fu rther characterize but likely to represent additional small cysts. PELVIC ORGANS/BLADDER: Urinary bladder, is unremarkable. The uterus is not identifie d and has presumably been removed. No adnexal mass. PERITONEUM/RETROPERITON EUM: No ascites or pneumoperitoneum. LYMPH NODES: No pelvic sidewall, retro peritoneal, or mesenteric lymphadenopathy. Mild prominent mandi hepatis lymph node are unchanged. VESSELS: As above. GI TRACT: The large bowel is no table for innumerable diverticula along the descending and sigmoid colon witho ut wall thickening or adjacent inflammatory change. Appendix is not definitive ly identified. No right lower quadrant or right hemipelvic inflammatory proces s. No small bowel dilatation to suggest obstruction. BONES AND SOFT TISSU ES: Osteopenia. Bone island in the left parasymphyseal region. Multilevel dege nerative disc disease and facet arthropathy of the thoracolumbar spine. Degene rative changes of the acromioclavicular and glenohumeral joints. No focal soft tissue abnormalities. Multiple calcified injection granulomata in the bilater al gluteal contains fat. Coarse right breast calcifications versus surgical cl ip. IMPRESSION: No acute aortic pathology. Specifically, no aortic di ssection. 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 Remaining visceral bran ch origins are widely patent. 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 Groundglass opacities and interlobular septal thickening suggests mild interstitial pulmonary edema. Otherwise no acute intrathora cic, abdominal, or pelvic CT abnormalities. Incidental findings include a l arge sliding hiatal hernia, bilateral simple renal cysts, and large bowel dive rticulosis without evidence of diverticulitis. Signed by: Dr. Izzy Moore M.D. on 07/24/2019 9:28 PM Dictated By: IZZY MOORE MD 27 Transcribed By: GELY on 2127 COPY TO: HAWA GAGNON MD CTA [id number] 21:08:00 [place] [address] Patient Name: YUE RAMSEY MR #: [id number] : 1935 Age/Sex: 83/F Req #: [id number] Adm Physician: Ordered by: HAWA GAGNON MD Report #: [id number] Location: ER Room/Bed: Procedure: [id number] CT/CTA CHEST Exam Date: 07/24/19 Exam Time: 1999 REPORT STATUS: Signed EXAMINATION: CT angiography of the chest, abdomen and pelvis with contrast. TECHNIQUE : Spiral CT images of the chest, abdomen and pelvis were performed from the l rehana apices to the lesser trochanters after the intravenous administration of 1 00 cc of Isovue 370. Coronal and sagittal reformatted images were obtained. COMPARISON: Chest radiograph 07/24/2019, CT abdomen and pelvis 04/15/2019 CLINICAL HISTORY:Concern for aortic dissection, sudden onset chest pain DISCUSSION: CHEST: Vasculature: Atherosclerotic calcification of t he [place] coronary arteries, aortic arch, and great vessel origins which are o therwise normal in caliber and configuration. There is no ectasia or aneurysma l dilatation of the ascending thoracic aorta. There is short segment focal ect [place] of the distal descending thoracic aorta (2.8 cm as seen on coronal image 59. There is no dissection or pseudoaneurysm. Mild calcified and noncalcified atherosclerotic plaque along the course of the thoracoabdominal aorta. Celiac axis, SMA, and [place] origins are patent. Patent left renal artery stent. Moderat e right renal artery ostial stenosis. The abdominal aorta is nonaneurysmal. Le ft hepatic artery is replaced to the left gastric artery area hepatic artery a natomy otherwise conventional. LUNGS AND AIRWAYS: Groundglass opacities with smooth interlobular septal thickening throughout the lungs, more conspicu ous in the dependent lower lobes, compatible with interstitial edema. No airsp pete consolidation or bronchiectasis. Trachea, mainstem bronchi, and central lo bar and segmental bronchi are patent. PLEURA: The pleural spaces are clear. HEART AND MEDIASTINUM: The left thyroid lobe is hypoplastic or may have been removed. No axillary, hilar, or mediastinal lymphadenopathy. This st udy was not optimized for detection of pulmonary embolic disease; however, no central filling defect within the main, right, or left pulmonary artery. Large sliding hiatal hernia with an adjacent distal to esophageal lymph node likely reactive. LYMPH NODES: No significant mediastinal, hilar or axillary lymph adenopathy is seen. ABDOMEN/PELVIS: HEPATOBILIARY:No focal hepatic lesions. No intrahepatic biliary ductal dilation. The gallbladder i s normal. SPLEEN: Calcified granuloma within the body of the spleen. P ANCREAS: No focal masses or ductal dilatation. ADRENALS: No adrenal nodules . KIDNEYS/URETERS: Bilateral simple cysts in the kidneys, measuring up to 2 .3 cm on the left and 5 cm on the right. All measurable lesions have average i nternal attenuation less than 20 Hounsfield units. Additional smaller subcenti meter hypoattenuating lesions throughout both kidneys are too small to further characterize but likely to represent additional small cysts. PELVIC ORGA NS/BLADDER: Urinary bladder, is unremarkable. The uterus is not identified and has presumably been removed. No adnexal mass. PERITONEUM/RETROPERITONEUM: No ascites or pneumoperitoneum. LYMPH NODES: No pelvic sidewall, retroperit white, or mesenteric lymphadenopathy. Mild prominent mandi hepatis lymph node are unchanged. VESSELS: As above. GI TRACT: The large bowel is notable for innumerable diverticula along the descending and sigmoid colon without wa ll thickening or adjacent inflammatory change. Appendix is not definitively id entified. No right lower quadrant or right hemipelvic inflammatory process. No small bowel dilatation to suggest obstruction. BONES AND SOFT TISSUES: O steopenia. Bone island in the left parasymphyseal region. Multilevel degenerat [place] disc disease and facet arthropathy of the thoracolumbar spine. Degenerativ e changes of the acromioclavicular and glenohumeral joints. No focal soft tiss ue abnormalities. Multiple calcified injection granulomata in the bilateral gl uteal contains fat. Coarse right breast calcifications versus surgical clip. IMPRESSION: No acute aortic pathology. Specifically, no aortic dissect ion. 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 Remaining visceral branch or igins are widely patent. 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 Groundglass opacities and interlobular septal thickening sugge sts mild interstitial pulmonary edema. Otherwise no acute intrathoracic, abdominal, or pelvic CT abnormalities. Incidental findings include a large sliding hiatal hernia, bilateral simple renal cysts, and large bowel diverticu losis without evidence of diverticulitis. Signed by: Srinath Mckeon on 07/24/2019 9:28 PM Dictated By: IZZY MOORE MD Electronically Sign ed By: IZZY MOORE MD on 07/24/192127 Transcribed By: GELY on 07/24/19 COPY TO: HAWA GAGNON MD Urine Epithelial [id number] 20:41:00* Test Item Value Reference Range Interpretation Comments Urine Epithelial Cells (test code = 22635-1) FEW NONE [facility] Movpc9095-59-18 19:52:00* Test Item Value Reference Range Interpretation Comments Urine Color (test code = 5778-6) YELLOW YELLOW [facility] Pccgzda4515-45-78 19:52:00* Test Item Value Reference Range Interpretation Comments Urine Clarity (test code = 06726-8) CLEAR CLEAR [facility] Specific Pciqojn8743-99-89 19:52:00 * Test Item Value Reference Range Interpretation Comments Urine Specific [place] (test code = 5811-5) 1.015 1.010-1.02 5 [facility] [id number] 19:52:00* Test Item Value Reference Range Interpretation Comments Urine pH (test code = 24549-5) 7.5 5-7 [facility] Leukocyte Cgittaae4113-54-79 19:52:00* Test Item Value Reference Range Interpretation Comments Urine Leukocyte Esterase (test code = 5799-2) NEGATIVE NEGATIVE [facility] Ogwemdj7770-01-04 19:52:00* Test Item Value Reference Range Interpretation Comments Urine Nitrite (test code = 13496-9) NEGATIVE NEGATIVE [facility] Kroaimk0323-42-24 19:52:00* Test Item Value Reference Range Interpretation Comments Urine Protein (test code = 5804-0) NEGATIVE NEGATIVE [facility] Glucose (UA)2019-07-24 19:52:00* Test Item Value Reference Range Interpretation Comments Urine Glucose (UA) (test code = 2349-9) NEGATIVE NEGATIVE [facility] Kylqltr1186-36-22 19:52:00* Test Item Value Reference Range Interpretation Comments Urine Ketones (test code = 24013-7) NEGATIVE NEGATIVE [facility] Wehaylsvzgza1321-85-33 19:52:00* Test Item Value Reference Range Interpretation Comments Urine Urobilinogen (test code = 18065-3) 0.2 0.2-1 [facility] Jfxvxiite8324-05-27 19:52:00* Test Item Value Reference Range Interpretation Comments Urine Bilirubin (test code = 1978-6) NEGATIVE NEGATIVE [facility] Zhdns1499-17-76 19:52:00* Test Item Value Reference Range Interpretation Comments Urine Blood (test code = 66472-0) NEGATIVE NEGATIVE [facility] [id number] 19:52:00* Test Item Value Reference Range Interpretation Comments Urine WBC (test code = 5821-4) 0-5 0-5 [facility] [id number] 19:52:00* Test Item Value Reference Range Interpretation Comments Urine RBC (test code = 32197-0) NONE 0-5 [facility] Csvbqjjt2793-06-50 19:52:00* Test Item Value Reference Range Interpretation Comments Urine Bacteria (test code = 03062-0) RARE NONE [facility] Natriuretic Fiifuvo8956-30-23 18:51:00* Test Item Value Reference Range Interpretation Comments B-Type Natriuretic Peptide (test code = 25238-2) 304.7 0-100 H [facility] Natriuretic Gjmsick9182-41-43 18:51:00* Test Item Value Reference Range Interpretation Comments B-Type Natriuretic Peptide (test code = 91828-0) 304.7 0-100 H [facility]iscoWhite Blood Orqft8633-47-28 18:49:00* Test Item Value Reference Range Interpretation Comments White Blood Count (test code = 6690-2) 7.87 4.8-10.8 [facility] Blood Repde9468-55-87 18:49:00* Test Item Value Reference Range Interpretation Comments Red Blood Count (test code = 789-8) 3.84 3.6-5.1 [facility]isco[facility]emoglobin2020-02-29 18:49:00* Test Item Value Reference Range Interpretation Comments Hemoglobin (test code = 07128-0) 11.4 12.0-16.0 L [facility]isco[facility]ematocrit2020-02-29 18:49:00* Test Item Value Reference Range Interpretation Comments Hematocrit (test code = 4544-3) 35.0 34.2-44.1 [facility]isco[facility] Corpuscular Ccjzmi6038-43-71 18:49:00* Test Item Value Reference Range Interpretation Comments Mean Corpuscular Volume (test code = 787-2) 91.1 81-99 [facility]Mean Corpuscular Khqqnjyppt8809-94-84 18:49:00* Test Item Value Reference Range Interpretation Comments Mean Corpuscular Hemoglobin (test code = 785-6) 29.7 28-32 [facility]iscoMean Corpuscular Hemoglobin Concent 2019-07-24 18:49:00* Test Item Value Reference Range Interpretation Comments Mean Corpuscular Hemoglobin Concent (test code = 786-4) 32.6 31-35 [facility]isco[facility] Cell Distribution Mareb0242-79-10 18:49:00* Test Item Value Reference Range Interpretation Comments Red Cell Distribution Width (test code = 96150-4) 13.4 11.7 -14.4 [facility]iscoPlatelet Zdyge8586-16-98 18:49:00* Test Item Value Reference Range Interpretation Comments Platelet Count (test code = 777-3) 260 140-360 [facility]iscoNeutrophils (%) (Auto)2019-07-24 18:49:00 * Test Item Value Reference Range Interpretation Comments Neutrophils (%) (Auto) (test code = 33622-0) 55.4 38.7-80.0 [facility]iscoLymphocytes (%) (Auto)2019-07-24 18:49:00 * Test Item Value Reference Range Interpretation Comments Lymphocytes (%) (Auto) (test code = 736-9) 29.5 18.0-39.1 [facility]isco[facility] (%) (Auto)2019-07-24 18:49:00* Test Item Value Reference Range Interpretation Comments Monocytes (%) (Auto) (test code = 5905-5) 9.8 4.4-11.3 [facility]iscoEosinophils (%) (Auto)2019-07-24 18:49:00 * Test Item Value Reference Range Interpretation Comments Eosinophils (%) (Auto) (test code = 713-8) 4.2 0.0-6.0 [facility]isco[facility]ophils (%) (Auto)2019-07-24 18:49:00* Test Item Value Reference Range Interpretation Comments Basophils (%) (Auto) (test code = 706-2) 0.6 0.0-1.0 [facility]iscoIM GRANULOCYTES %2019-07-24 18:49:00* Test Item Value Reference Range Interpretation Comments IM GRANULOCYTES % (test code = IM GRANULOCYTES %) 0.5 0.0- 1.0 [facility]iscoNeutrophils # (Auto)2019-07-24 18:49:00* Test Item Value Reference Range Interpretation Comments Neutrophils # (Auto) (test code = 751-8) 4.4 2.1-6.9 [facility]iscoLymphocytes # (Auto)2019-07-24 18:49:00* Test Item Value Reference Range Interpretation Comments Lymphocytes # (Auto) (test code = 51945-6) 2.3 1.0-3.2 [facility]iscoMonocytes # (Auto)2019-07-24 18:49:00* Test Item Value Reference Range Interpretation Comments Monocytes # (Auto) (test code = 742-7) 0.8 0.2-0.8 [facility]iscoEosinophils # (Auto)2019-07-24 18:49:00* Test Item Value Reference Range Interpretation Comments Eosinophils # (Auto) (test code = 711-2) 0.3 0.0-0.4 [facility]isco[facility]ophils # (Auto)2019-07-24 18:49:00* Test Item Value Reference Range Interpretation Comments Basophils # (Auto) (test code = 704-7) 0.1 0.0-0.1 [facility]iscoAbsolute Immature Granulocyte (auto 2019-07-24 18:49:00* Test Item Value Reference Range Interpretation Comments Absolute Immature Granulocyte (auto (anjali t code = Absolute Immature Granulocyte (auto) 0.04 0-0.1 [facility] Mqjuf5434-48-53 18:48:00* Test Item Value Reference Range Interpretation Comments Sodium Level (test code = 2951-2) 139 136-145 [facility]iscoPotassium Ieqox2290-50-17 18:48:00* Test Item Value Reference Range Interpretation Comments Potassium Level (test code = 2823-3) 3.9 3.5-5.1 [facility]iscoChloride Zcntd3292-52-56 18:48:00* Test Item Value Reference Range Interpretation Comments Chloride Level (test code = 2075-0) 108 98-107 H [facility]iscoCarbon Dioxide Xkihw3043-71-67 18:48:00* Test Item Value Reference Range Interpretation Comments Carbon Dioxide Level (test code = 2028-9) 23 22-29 [facility]iscoAnion Mpz3252-06-96 18:48:00* Test Item Value Reference Range Interpretation Comments Anion Gap (test code = 58795-2) 11.9 8-16 [facility]iscoBlood Urea Pqjakvxr0144-37-30 18:48:00* Test Item Value Reference Range Interpretation Comments Blood Urea Nitrogen (test code = 3094-0) 14 7-26 [facility]iscoCreatinine2020-02-29 18:48:00* Test Item Value Reference Range Interpretation Comments Creatinine (test code = 2160-0) 1.11 0.57-1.11 [facility]/Creatinine Btpjj2614-34-22 18:48:00* Test Item Value Reference Range Interpretation Comments BUN/Creatinine Ratio (test code = 3097-3) 13 6-25 [facility]iscoEstimat Glomerular Filtration Rate 2019-07-24 18:48:00* Test Item Value Reference Range Interpretation Comments Estimat Glomerular Filtration Rate (test code = 636982213) 47 >60 L Ranges were taken from the National Kidney Disease Education Program and the [facility] literature.Reference ranges:60 or greater: Htsjaw41-09 ( for 3 consecutive months): Chronic kidney disease 15 or less: Kidney failureTexas Health FriscoGlucose Yzhwy1578-98-82 18:48:00* Test Item Value Reference Range Interpretation Comments Glucose Level (test code = UNJ2912) 104 74-118 [facility]iscoCalcium Vsusv5670-60-01 18:48:00* Test Item Value Reference Range Interpretation Comments Calcium Level (test code = 88808-3) 9.5 8.4-10.2 [facility]iscoTotal Sjdtmxqnv2701-27-95 18:48:00* Test Item Value Reference Range Interpretation Comments Total Bilirubin (test code = 1975-2) 0.4 0.2-1.2 [facility] FriscoAspartate Amino Transf (AST/SGOT) 2019-07-24 18:48:00* Test Item Value Reference Range Interpretation Comments Aspartate Amino Transf (AST/SGOT) (test code = Aspartate Amino Transf (AST/SGOT)) 23 5-34 [facility]iscoAlanine Aminotransferase (ALT/SGPT) 2019-07-24 18:48:00* Test Item Value Reference Range Interpretation Comments Alanine Aminotransferase (ALT/SGPT) (test code = 1742-6) 13 0-55 [facility]iscoTotal Txtxdah6656-39-19 18:48:00* Test Item Value Reference Range Interpretation Comments Total Protein (test code = 2885-2) 6.7 6.5-8.1 [facility]iscoAlbumin2020-02-29 18:48:00* Test Item Value Reference Range Interpretation Comments Albumin (test code = 1751-7) 3.1 3.5-5.0 L [facility]iscoGlobulin2020-02-29 18:48:00* Test Item Value Reference Range Interpretation Comments Globulin (test code = 10556-3) 3.6 2.3-3.5 H [facility]iscoAlbumin/Globulin Jlbie7683-12-88 18:48:00 * Test Item Value Reference Range Interpretation Comments Albumin/Globulin Ratio (test code = 1759-0) 0.9 0.8-2.0 [facility] FriscoAlkaline Cpfyjkhciau9766-99-60 18:48:00* Test Item Value Reference Range Interpretation Comments Alkaline Phosphatase (test code = 6768-6) 79 40-150 [facility]iscoProthrombin Dqwc7184-67-34 18:47:00* Test Item Value Reference Range Interpretation Comments Prothrombin Time (test code = 5902-2) 13.4 11.9-14.5 [facility] FriscoProthromb Time International Ratio 2019-07-24 18:47:00* Test Item Value Reference Range Interpretation Comments Prothromb Time International Ratio (test code = 6301-6) 0.96 Oral Anticoagulant Therapy INR Values:1. Low Intensity Therapy 1.5 - 2.02 . Moderate Intensity Therapy 2.0 - 3.03. High Intensity Therapy(1) 2.5 - 3. 54. High Intensity Therapy(2) 3.0 - 4.05. Panic Value INR > 5.0 [facility]iscoActivated Partial Thromboplast Time 2019-07-24 18:47:00* Test Item Value Reference Range Interpretation Comments Activated Partial Thromboplast Time (test code = 02714-2) 25.9 23.8-35.5 [facility] FriscoCHEST SINGLE (PORTABLE)2019-07-24 18:28:00 [place] [address] Patient Name: YUE RAMSEY MR #: [id number] : 1935 Age/Sex: 83/F Req #: [id number] Adm Physician: Ordered by: BHARATHI JOHNSTON FLEECE TIER Report #: [id number] Location: ER Room/Bed: Procedure: [id number] DX/CHEST SINGLE (PORTABLE) Exam Date: 07/24/19 Exam Time: 182 REPORT STATUS: Signed EXAMINATION: CHEST SINGLE (PORTABLE) COMPARISON: Chest x-ray 07/15/19 INDICATION: Chest pain ERMD ORDER [id number] Y DI SCUSSION: Frontal view of the chest obtained at 1813 hours. HEART AND MED IASTINUM: The cardiomediastinal silhouette is unremarkable. LINES: None . LUNGS: Diffuse hyperinflation. Bilateral upper lobe reticulation/scarrin g is stable. No pneumonia or pulmonary edema. PLEURA: No pleural effusio n or pneumothorax. BONES AND SOFT TISSUES: No focal osseous lesion. The so ft tissues are normal. IMPRESSION: Stable pulmonary hyperinflation. N o acute cardiopulmonary process. Signed by: Dr. Louis Acosta MD on 6:29 PM Dictated By: LOUIS ACOSTA MD 1829 Transcribed By: GELY on 07/24/19 1 829 COPY TO: BHARATHI JOHNSTON FLEECE TIER BNP Wbm-yNdh4899-68-29 17:05:00* Test Item Value Reference Range Interpretation Comments B-Type Natriuretic Peptide (test code = 69866-9) 304.7 0-100 [facility] 2 OTSNB8638-86-92 14:56:00 [facility] [address] [place] [address] Patient Name: YUE RAMSEY MR #: [id number] : 1935 Age/Sex: 83/F Req #: [id number] Adm Physician: Ordered by: ROSA GREER MD Report #: [id number] Location: OR Room/Bed: Procedure: 42 DX/CHEST 2 VIEWS Exam Date: 07/15/19 Exam Time: 1 430 REPORT STATUS: Signed EXAMIN ATION: CHEST 2 VIEWS INDICATION: PREOP [id number] 1430 COMPARISON: None FINDINGS: PA and lateral views TUBES and LI JANY: None. LUNGS: Lungs are well inflated. Lungs are clear. There is no evidence of pneumonia or pulmonary edema. PLEURA: No pleural effusion o r pneumothorax. HEART AND MEDIASTINUM: The cardiomediastinal silhouette is unremarkable. The thoracic aorta is mildly tortuous. BONES AND SOFT TISS UES: No acute osseous lesion. Soft tissues are unremarkable. UPPER ABDO MEN: No free air under the diaphragm. IMPRESSION: No acute thoracic radiographic abnormality. Signed by: Mau Stewart MD on 07/15/2019 2:5 8 PM Dictated By: MAU STEWART MD 57 Transcribed By: GELY on 07/15/191457 COPY TO : ROSA GREER MD Vitamin B1 Resgv6621-99-73 21:22:00* Test Item Value Reference Range Interpretation Comments Vitamin B1 Level (test code = 80798-4) 301.0 66.5-200.0 H Performed at: [facility] [id number] Teletypist: Lia Martinez MD, Phone: [phone] Health FriscoVitamin B1 Krceh9237-74-91 21:22:00* Test Item Value Reference Range Interpretation Comments Vitamin B1 Level (test code = 23628-7) 301.0 66.5-200.0 H Performed at: [employer] [id number] Teletypist: Lia Martinez MD, Phone: [phone] Health FriscoBlood Sogiimm4412-74-17 08:50:00* Test Item Value Reference Range Interpretation Comments Blood Culture (test code = 13116845) NO GROWTH AFTER 5 DAYS, FINAL REPORT [facility] Gvjoisj6344-59-91 08:50:00* Test Item Value Reference Range Interpretation Comments Blood Culture (test code = 27437537) NO GROWTH AFTER 5 DAYS, FINAL REPORT [facility] Poqybza3534-96-11 08:50:00* Test Item Value Reference Range Interpretation Comments Blood Culture (test code = 45555415) NO GROWTH AFTER 5 DAYS, FINAL REPORT [facility] Center[facility] Bxiva4208-72-88 06:37:00* Test Item Value Reference Range Interpretation Comments Sodium Level (test code = 2951-2) 140 136-145 [facility]iscoPotassium Fymwd5926-77-26 06:37:00* Test Item Value Reference Range Interpretation Comments Potassium Level (test code = 2823-3) 3.6 3.5-5.1 [facility] FriscoChloride Xouxq3401-82-24 06:37:00* Test Item Value Reference Range Interpretation Comments Chloride Level (test code = 2075-0) 109 98-107 H [facility] FriscoCarbon Dioxide Sgtxz2815-70-09 06:37:00* Test Item Value Reference Range Interpretation Comments Carbon Dioxide Level (test code = 2028-9) 22 22-29 [facility] FriscoAnion Zjc3046-43-47 06:37:00* Test Item Value Reference Range Interpretation Comments Anion Gap (test code = 05073-4) 12.6 8-16 [facility]iscoBlood Urea Wrmzpbyb2283-47-55 06:37:00* Test Item Value Reference Range Interpretation Comments Blood Urea Nitrogen (test code = 3094-0) 17 7-26 [facility] FriscoCreatinine2020-02-06 06:37:00* Test Item Value Reference Range Interpretation Comments Creatinine (test code = 2160-0) 1.09 0.57-1.11 [facility]iscoBUN/Creatinine Qjobr1029-05-41 06:37:00* Test Item Value Reference Range Interpretation Comments BUN/Creatinine Ratio (test code = 3097-3) 16 6-25 [facility] FriscoEstimat Glomerular Filtration Rate 2019-07-01 06:37:00* Test Item Value Reference Range Interpretation Comments Estimat Glomerular Filtration Rate (test code = 775786388) 48 >60 L Ranges were taken from the National Kidney Disease Education Program and the [facility] literature.Reference ranges:60 or greater: Yevoxj36-02 ( for 3 consecutive months): Chronic kidney disease 15 or less: Kidney failureTexas Health FriscoGlucose Qbjsy1603-03-17 06:37:00* Test Item Value Reference Range Interpretation Comments Glucose Level (test code = VVA9780) 97 74-118 [facility] FriscoCalcium Godao5775-29-65 06:37:00* Test Item Value Reference Range Interpretation Comments Calcium Level (test code = 16200-0) 8.3 8.4-10.2 L [facility]iscoTotal Kvkpkdmkk7947-31-36 06:37:00* Test Item Value Reference Range Interpretation Comments Total Bilirubin (test code = 1975-2) 0.3 0.2-1.2 [facility] FriscoAspartate Amino Transf (AST/SGOT) 2019-07-01 06:37:00* Test Item Value Reference Range Interpretation Comments Aspartate Amino Transf (AST/SGOT) (test code = Aspartate Amino Transf (AST/SGOT)) 17 5-34 [facility] FriscoAlanine Aminotransferase (ALT/SGPT) 2019-07-01 06:37:00* Test Item Value Reference Range Interpretation Comments Alanine Aminotransferase (ALT/SGPT) (test code = 1742-6) 10 0-55 [facility]iscoTotal Cjjmijb5122-02-40 06:37:00* Test Item Value Reference Range Interpretation Comments Total Protein (test code = 2885-2) 6.0 6.5-8.1 L [facility] FriscoAlbumin2020-02-06 06:37:00* Test Item Value Reference Range Interpretation Comments Albumin (test code = 1751-7) 2.4 3.5-5.0 L [facility] FriscoGlobulin2020-02-06 06:37:00* Test Item Value Reference Range Interpretation Comments Globulin (test code = 08529-8) 3.6 2.3-3.5 H [facility] FriscoAlbumin/Globulin Zzbov1923-24-70 06:37:00 * Test Item Value Reference Range Interpretation Comments Albumin/Globulin Ratio (test code = 1759-0) 0.7 0.8-2.0 L [facility] FriscoAlkaline Anufymqfwsw8169-25-79 06:37:00* Test Item Value Reference Range Interpretation Comments Alkaline Phosphatase (test code = 6768-6) 69 40-150 [facility] Centererum or plasma thiamine measurement (moles/volume)2019-06-30 12:26:00* Test Item Value Reference Range Interpretation Comments Vitamin B1 Level (test code = 64692-6) 301.0 66.5-200.0 Performed at: [address] [id number] Teletypist: Lia Martinez MD, Phone: [phone] Health FriscoWhite Blood Zzsgu3414-84-53 05:53:00* Test Item Value Reference Range Interpretation Comments White Blood Count (test code = 6690-2) 5.45 4.8-10.8 [facility] FriscoRed Blood Zqftm8641-20-94 05:53:00* Test Item Value Reference Range Interpretation Comments Red Blood Count (test code = 789-8) 3.66 3.6-5.1 [facility]iscoHemoglobin2020-02-05 05:53:00* Test Item Value Reference Range Interpretation Comments Hemoglobin (test code = 64974-5) 11.0 12.0-16.0 L [facility] FriscoHematocrit2020-02-05 05:53:00* Test Item Value Reference Range Interpretation Comments Hematocrit (test code = 4544-3) 32.7 34.2-44.1 L [facility] FriscoMean Corpuscular Qantea8155-89-66 05:53:00* Test Item Value Reference Range Interpretation Comments Mean Corpuscular Volume (test code = 787-2) 89.3 81-99 [facility]iscoMean Corpuscular Ozhkrsvxtu9818-21-14 05:53:00* Test Item Value Reference Range Interpretation Comments Mean Corpuscular Hemoglobin (test code = 785-6) 30.1 28-32 [facility] Corpuscular Hemoglobin Concent 2019-06-30 05:53:00* Test Item Value Reference Range Interpretation Comments Mean Corpuscular Hemoglobin Concent (test code = 786-4) 33.6 31-35 [facility]iscoRed Cell Distribution Agkij0660-57-48 05:53:00* Test Item Value Reference Range Interpretation Comments Red Cell Distribution Width (test code = 46213-6) 12.7 11.7 -14.4 [facility] FriscoPlatelet Ejeww1505-70-94 05:53:00* Test Item Value Reference Range Interpretation Comments Platelet Count (test code = 777-3) 233 140-360 [facility]iscoNeutrophils (%) (Auto)2019-06-30 05:53:00 * Test Item Value Reference Range Interpretation Comments Neutrophils (%) (Auto) (test code = 67929-7) 48.6 38.7-80.0 [facility]iscoLymphocytes (%) (Auto)2019-06-30 05:53:00 * Test Item Value Reference Range Interpretation Comments Lymphocytes (%) (Auto) (test code = 736-9) 27.9 18.0-39.1 [facility]iscoMonocytes (%) (Auto)2019-06-30 05:53:00* Test Item Value Reference Range Interpretation Comments Monocytes (%) (Auto) (test code = 5905-5) 11.2 4.4-11.3 [facility]iscoEosinophils (%) (Auto)2019-06-30 05:53:00 * Test Item Value Reference Range Interpretation Comments Eosinophils (%) (Auto) (test code = 713-8) 11.0 0.0-6.0 H [facility]iscoBasophils (%) (Auto)2019-06-30 05:53:00* Test Item Value Reference Range Interpretation Comments Basophils (%) (Auto) (test code = 706-2) 0.9 0.0-1.0 [facility] FriscoIM GRANULOCYTES %2019-06-30 05:53:00* Test Item Value Reference Range Interpretation Comments IM GRANULOCYTES % (test code = IM GRANULOCYTES %) 0.4 0.0- 1.0 [facility]iscoNeutrophils # (Auto)2019-06-30 05:53:00* Test Item Value Reference Range Interpretation Comments Neutrophils # (Auto) (test code = 751-8) 2.7 2.1-6.9 [facility]iscoLymphocytes # (Auto)2019-06-30 05:53:00* Test Item Value Reference Range Interpretation Comments Lymphocytes # (Auto) (test code = 15704-9) 1.5 1.0-3.2 [facility]iscoMonocytes # (Auto)2019-06-30 05:53:00* Test Item Value Reference Range Interpretation Comments Monocytes # (Auto) (test code = 742-7) 0.6 0.2-0.8 [facility]iscoEosinophils # (Auto)2019-06-30 05:53:00* Test Item Value Reference Range Interpretation Comments Eosinophils # (Auto) (test code = 711-2) 0.6 0.0-0.4 H [facility]iscoBasophils # (Auto)2019-06-30 05:53:00* Test Item Value Reference Range Interpretation Comments Basophils # (Auto) (test code = 704-7) 0.1 0.0-0.1 [facility] FriscoAbsolute Immature Granulocyte (auto 2019-06-30 05:53:00* Test Item Value Reference Range Interpretation Comments Absolute Immature Granulocyte (auto (anjali t code = Absolute Immature Granulocyte (auto) 0.02 0-0.1 [facility] FriscoCTA OCJDE3854-80-60 18:23:00 [facility] [address] [place] [address] Patient Name: YUE RAMSEY MR #: [id number] : 1935 Age/Sex: 83/F Req #: [id number] Adm Physician: SANDRA CHASE MD Ordered by: ILANA PALMER MD Report #: [id number] Location: [facility] Room/Bed: [facility] Procedure: [id number]/CTA BRAIN Exam Date: 06/29/19 Exam Time: 1701 REPORT STATUS: Signed History:<>, Comparison studies:None Technique: Axial images were obtained from the thoracic inlet. Coronal and sagittal images reconstructed from the axial d caroline. Additional multiplanar coronal, sagittal and oblique MIP images as well a s 3-D-volume rendered images of the carotid arteries and [place] were reformatted from the axial source data. Intravenous contrast: 100 cc of Omnipaque 300. If present, stenosis is calculated utilizing the NASCET meth od which calculates the degree of stenosis with reference to the normal lumen of the carotid artery distal to the stenosis. Findings: Cervical CTA : Aortic arch and major vessels: Moderate scattered calcified plaque throug hout the aortic arch. Calcified plaque at the origins of the left subclavian a rtery, left common carotid artery, within the right brachiocephalic trunk and origin of the right subclavian artery without significant stenosis. Common c arotid arteries: Patent, no significant stenosis. Mild scattered calcified eros que on the left without significant stenosis. Carotid bulbs and internal carot id arteries: Patent bilaterally with catheter atherosclerosis at the carotid b ulbs bilaterally with no (0%) stenosis by NASCET. External carotid arteries: Bilaterally with mild atherosclerosis at the origins without significant sten osis Vertebral arteries: Patent, no abnormalities. Intracranial CTA: Anterior circulation: Internal carotid arteries: Mild scattered calcified pl aque throughout the bilateral cavernous and paraophthalmic segments without si gnificant stenosis. Middle cerebral arteries: Patent, no proximal branch occlu emily or stenosis. Anterior cerebral arteries: Patent, no proximal branch occlu emily or stenosis. Vertebral arteries: Patent, no abnormalities. Basilar a rtery: Patent, no abnormalities. Posterior cerebral arteries: Patent, no proxi mal branch occlusion or stenosis. Hypoplastic right P1 segment and slightly hy poplastic left P1 segment with prominent posterior communicating arteries (fet al-type BUSINESS TRAINER origins). Anatomical variants: Anterior communicating artery: Patient . Pcoms: Bilateral -type BUSINESS TRAINER origins. Vertebral arteries: Rig ht is dominant. Additional findings: Few nonspecific paratracheal lymph n odes which measure up to 10 mm may be reactive. Degenerative changes in the cervical spine with mild anterolisthesis of C3 on C4, varying degrees of m ild to moderate multilevel disc and multilevel facet arthrosis. Canal stenosis due to disc osteophyte complexes from C3 to C6, worse/moderate to severe at C 5-C6. Multilevel uncovertebral facet arthrosis result in multilevel foraminal stenosis which is severe bilaterally at C3-C4 on the right at C4-C5, bilateral ly at C5-C6 and bilaterally at C6-C7. IMPRESSION: Neck CTA: 1. Will nt carotid and vertebral arteries without significant stenosis. 2. Scattered atherosclerosis with plaques as described. 3. Multilevel degenerative change s in the cervical spine as described. Intracranial CTA: 1. No major sam rial branch occlusion or significant stenosis. 2. Atherosclerosis in the fofana tid siphons without significant stenosis. Signed by: Srinath Saravia on 06/29/2019 7:09 PM Dictated By: IZZY GRIFFITH MD Electronically Sig leeroy By: IZZY GRIFFITH MD on 06/29/191908 Transcribed By: GELY on 06/29/191908 COPY TO: ILANA PALMER MD CTA [id number] 18:23:00 [place] [address] Patient Name: YUE RAMSEY MR #: [id number] : 1935 Age/Sex: 83/F Req #: [id number] Adm Physician: SANDRA CHASE MD Ordered by: ILANA PALMER MD Report #: [id number] Location: MED/SURG3 Room/Bed: [facility] Procedure: [id number]/CTA NECK Exam Date: 06/29/19 Exam Time: 1701 REPORT STATUS: Signed History:<>, Comparison studies:None Technique: Axial images were obtained from the thoracic inlet. Coronal and sagittal images reconstructed from the axial d caroline. Additional multiplanar coronal, sagittal and oblique MIP images as well a s 3-D-volume rendered images of the carotid arteries and [place] were reformatted from the axial source data. Intravenous contrast: 100 cc of Omnipaque 300. If present, stenosis is calculated utilizing the NASCET meth od which calculates the degree of stenosis with reference to the normal lumen of the carotid artery distal to the stenosis. Findings: Cervical CTA : Aortic arch and major vessels: Moderate scattered calcified plaque throug hout the aortic arch. Calcified plaque at the origins of the left subclavian a rtery, left common carotid artery, within the right brachiocephalic trunk and origin of the right subclavian artery without significant stenosis. Common c arotid arteries: Patent, no significant stenosis. Mild scattered calcified eros que on the left without significant stenosis. Carotid bulbs and internal carot id arteries: Patent bilaterally with catheter atherosclerosis at the carotid b ulbs bilaterally with no (0%) stenosis by NASCET. External carotid arteries: Bilaterally with mild atherosclerosis at the origins without significant sten osis Vertebral arteries: Patent, no abnormalities. Intracranial CTA: Anterior circulation: Internal carotid arteries: Mild scattered calcified pl aque throughout the bilateral cavernous and paraophthalmic segments without si gnificant stenosis. Middle cerebral arteries: Patent, no proximal branch occlu emily or stenosis. Anterior cerebral arteries: Patent, no proximal branch occlu emily or stenosis. Vertebral arteries: Patent, no abnormalities. Basilar a rtery: Patent, no abnormalities. Posterior cerebral arteries: Patent, no proxi mal branch occlusion or stenosis. Hypoplastic right P1 segment and slightly hy poplastic left P1 segment with prominent posterior communicating arteries (fet al-type BUSINESS TRAINER origins). Anatomical variants: Anterior communicating artery: Patient . Pcoms: Bilateral -type BUSINESS TRAINER origins. Vertebral arteries: Rig ht is dominant. Additional findings: Few nonspecific paratracheal lymph n odes which measure up to 10 mm may be reactive. Degenerative changes in the cervical spine with mild anterolisthesis of C3 on C4, varying degrees of m ild to moderate multilevel disc and multilevel facet arthrosis. Canal stenosis due to disc osteophyte complexes from C3 to C6, worse/moderate to severe at C 5-C6. Multilevel uncovertebral facet arthrosis result in multilevel foraminal stenosis which is severe bilaterally at C3-C4 on the right at C4-C5, bilateral ly at C5-C6 and bilaterally at C6-C7. IMPRESSION: Neck CTA: 1. Will nt carotid and vertebral arteries without significant stenosis. 2. Scattered atherosclerosis with plaques as described. 3. Multilevel degenerative change s in the cervical spine as described. Intracranial CTA: 1. No major sam rial branch occlusion or significant stenosis. 2. Atherosclerosis in the fofana tid siphons without significant stenosis. Signed by: Srinath Saravia on 06/29/2019 7:09 PM Dictated By: IZZY GRIFFITH MD Electronically Sig leeroy By: IZZY GRIFFITH MD on 06/29/191908 Transcribed By: GELY on 06/29/191908 COPY TO: ILANA PALMER MD MRI BRAIN [id number] 14:48:00 [place] [address] Patient Name: YUE RAMSEY MR #: [id number] : 1935 Age/Sex: 83/F Req #: [id number] Adm Physician: SANDRA CHASE MD Ordered by: ILANA PALMER MD Report #: [id number] Location: [facility] Room/Bed: [facility] Procedure: [id number] MRI/MRI BRAIN WO Exam Date: Exam Time: REPORT STATUS: Signed MRI BRAIN WO H ISTORY: Altered mental status COMPARISON: Head CT 06/28/2019 TECHNIQUE: Sagittal T1, axial T2, axial T1, axial T2/FLAIR, axial gradient echo (or s usceptibility weighted), coronal T1, and axial diffusion weighted MR images of the brain were obtained without contrast. Motion artifacts obscure some detai ls. DISCUSSION: Scalp/bone marrow: Unremarkable. Brain sulci: Promin ent. Ventricles: Compensatory dilatation. Extra-axial spaces: No masses or fluid collections. Parenchyma: Mild focal diffusion restriction in the bi lateral central arlen (bright on DWI, isointense to dark on ADC map) is associa debbie with T2/FLAIR hyperintensity. This is compatible with subacute/late acute ischemia. No other diffusion restricting abnormalities are seen. Scattere d T2/FLAIR hyperintense foci throughout the supratentorial white matter are li laura chronic microvascular ischemic changes. Otherwise, no mass, or hemorrhage . Vessels: Normal flow voids in major arteries and veins. Sellar/Suprasel lar region: No abnormalities. Craniocervical junction: There are mild to mode rate degenerative changes in the upper cervical spine Incidental findings: B ilateral ocular lens replacement. Small right mastoid effusion. IMPRESSIO N: 1. Mild focal diffusion restriction (cytotoxic edema) in the bilateral central arlen is compatible with subacute/late acute lacunar infarcts . 2. No other acute intracranial abnormalities. 3. Mild to moderate supratentoria l chronic microvascular ischemic change. 4. Mild generalized cerebral volume loss. Signed by: Dr. Joon Marin M.D. on 06/29/2019 2:58 PM Dictat ed By: JOON MARIN MD 57 COPY TO: ILANA PALMER MD Nmdnndu2379-27-24 19:49:00* Test Item Value Reference Range Interpretation Comments Ammonia (test code = 63197-4) 23 31-123 L [facility]iscoAmmonia2020-02-03 19:49:00* Test Item Value Reference Range Interpretation Comments Ammonia (test code = 94138-6) 23 31-123 L [facility]iscoAmmonia2020-02-03 19:49:00* Test Item Value Reference Range Interpretation Comments Ammonia (test code = 48042-6) 23 31-123 L [facility] JR7189-95-62 19:00:00 [place] [address] Patient Name: YUE RAMSEY #: [id number] : 1935 Age/Sex: 83/F Req #: [id number] Adm Physician: SANDRA CHASE MD Ordered by: SANDRA CHASE MD Report #: [id number] Location: [place] [address] Room/Bed: [facility] Procedure: [id number] CT/CT BRAIN WO Exam Date: 06/28/19 Exam Time: 1850 REPORT STATUS: Signed EXAMINATION : Head CT HISTORY: Alteration of consciousness, confusion COMPARISON: No ne., Atrial fibrillation TECHNIQUE: Multidetector axial images were obtained w ithout contrast from the foramen magnum to the vertex . The images were recons tructed using brain and bone algorithms. Thin section brain images were refor matted into coronal and sagittal planes. Image quality: Motion/streaking art ifact limits the evaluation of the skull base and posterior cranial fossa. D ose modulation, iterative reconstruction, and/or weight based adjustment of th e mA/kV was utilized to reduce the radiation dose to as low as reasonably achi evable. FINDINGS: Parenchyma: 1. Few scatter white matter hypodensities, most likely nonspecific chronic microvascular ischemic changes. 2. No mass or hemorrhage. No CT evidence of acute territorial vascular insul t. Extra-axial spaces:No abnormal density. No extra-axial fluid collections Brain volume: Normal for age. Ventricles: No hydroc ephalus or displacement. Arteries: No density suggestive of thrombus. Dural sinuses: No abnormal density. Foramen magnum: No mass, Shaun ri malformation, or basilar invagination. Sella: No obvious mass. Paranasal/mastoid sinuses: Imaged portions unremarkable. Skull/Scalp: No lytic or blastic lesions. No fractures. Incidental findings: The lens es are not visualized, likely from prior cataract surgery. IMPRESSION: 1. No acute intracranial abnormalities, particularly no hemorrhagic or cor tical infarct. 2. Mild traumatic chronic microvascular ischemic changes. Signed by: Dr. Peterson Schultz M.D. on 06/28/2019 7:04 PM Dictated By: YANNICK SCHULTZ MD 03 Transcr ibed By: GELY on 06/28/191903 COPY TO: SANDRA CHASE MD Urine [id number] 18:25:00* Test Item Value Reference Range Interpretation Comments Urine WBC (test code = 5821-4) NONE 0-5 [facility] IGO4470-44-91 18:25:00* Test Item Value Reference Range Interpretation Comments Urine RBC (test code = 78252-2) NONE 0-5 [facility] Rztxmfkk6144-72-52 18:25:00* Test Item Value Reference Range Interpretation Comments Urine Bacteria (test code = 88598-6) RARE NONE [facility] Epithelial Ehnld9805-84-05 18:25:00 * Test Item Value Reference Range Interpretation Comments Urine Epithelial Cells (test code = 57542-5) FEW NONE [facility]iscoAmmonia Hut-wSsb3446-45-03 18:23:00* Test Item Value Reference Range Interpretation Comments Ammonia (test code = 75241-9) 23 31-123 [facility] Nnrlz6038-71-92 18:20:00* Test Item Value Reference Range Interpretation Comments Urine Color (test code = 5778-6) YELLOW YELLOW [facility] Vkuspgh9640-21-82 18:20:00* Test Item Value Reference Range Interpretation Comments Urine Clarity (test code = 01082-7) SL CLOUDY CLEAR [facility] Specific Xlblkdj1424-43-39 18:20:00 * Test Item Value Reference Range Interpretation Comments Urine Specific [place] (test code = 5811-5) 1.025 1.010-1.02 5 [facility] nJ8374-89-79 18:20:00* Test Item Value Reference Range Interpretation Comments Urine pH (test code = 63646-5) 7 5-7 [facility] Leukocyte Jfqqingr0740-52-57 18:20:00* Test Item Value Reference Range Interpretation Comments Urine Leukocyte Esterase (test code = 5799-2) NEGATIVE NEGATIVE [facility] Ypcngcu5178-32-54 18:20:00* Test Item Value Reference Range Interpretation Comments Urine Nitrite (test code = 05886-9) NEGATIVE NEGATIVE [facility] Odylrsb8286-06-67 18:20:00* Test Item Value Reference Range Interpretation Comments Urine Protein (test code = 5804-0) NEGATIVE NEGATIVE [facility] Glucose (UA)2019-06-28 18:20:00* Test Item Value Reference Range Interpretation Comments Urine Glucose (UA) (test code = 2349-9) NEGATIVE NEGATIVE [facility] Hvrlwbf5237-39-61 18:20:00* Test Item Value Reference Range Interpretation Comments Urine Ketones (test code = 79571-0) NEGATIVE NEGATIVE [facility] Wirtkclgklxy3553-73-80 18:20:00* Test Item Value Reference Range Interpretation Comments Urine Urobilinogen (test code = 45045-6) 0.2 0.2-1 [facility] Qqfxxoqun4873-23-36 18:20:00* Test Item Value Reference Range Interpretation Comments Urine Bilirubin (test code = 1978-6) NEGATIVE NEGATIVE [facility] Dgayn0775-66-56 18:20:00* Test Item Value Reference Range Interpretation Comments Urine Blood (test code = 92968-8) NEGATIVE NEGATIVE [facility]iglycerides Yydba2260-80-11 06:33:00* Test Item Value Reference Range Interpretation Comments Triglycerides Level (test code = 2571-8) 94 0-149 [facility] Qduzw8498-64-93 06:33:00* Test Item Value Reference Range Interpretation Comments Cholesterol Level (test code = 2093-3) 95 0-199 Less than 200 mg/dL Low Fpea803 - 239 mg/dL Borderline Sanu467 m g/dl and greater High Risk [facility]iscoLDL Jiucstppvuv5483-85-72 06:33:00* Test Item Value Reference Range Interpretation Comments LDL Cholesterol (test code = 2089-1) 49 60-130 [facility] Yrkfxoykzin4083-09-57 06:33:00* Test Item Value Reference Range Interpretation Comments HDL Cholesterol (test code = 2085-9) 27 40-60 L [facility]/HDL Uolrd2973-24-23 06:33:00 * Test Item Value Reference Range Interpretation Comments Cholesterol/HDL Ratio (test code = 9830-1) 3.5 3.0-3.6 [facility]iglycer[facility] Imlhd1936-08-53 06:33:00* Test Item Value Reference Range Interpretation Comments Triglycerides Level (test code = 2571-8) 94 0-149 [facility] Rjdja3967-59-06 06:33:00* Test Item Value Reference Range Interpretation Comments Cholesterol Level (test code = 2093-3) 95 0-199 Less than 200 mg/dL Low Clec580 - 239 mg/dL Borderline Fsmc836 m g/dl and greater High Risk [facility] Eejqrcygzpm1660-75-21 06:33:00* Test Item Value Reference Range Interpretation Comments LDL Cholesterol (test code = 2089-1) 49 60-130 L [facility] Pxokdmfrfeg2881-87-90 06:33:00* Test Item Value Reference Range Interpretation Comments HDL Cholesterol (test code = 2085-9) 27 40-60 L [facility]/HDL Omico8347-22-65 06:33:00 * Test Item Value Reference Range Interpretation Comments Cholesterol/HDL Ratio (test code = 9830-1) 3.5 3.0-3.6 [facility]iscoCreatine Kinase VB1633-95-77 03:11:00* Test Item Value Reference Range Interpretation Comments Creatine Kinase MB (test code = 91313-4) 0.30 0-5.0 [facility]iscoTroponin V7831-31-45 03:11:00* Test Item Value Reference Range Interpretation Comments Troponin I (test code = JEP1347) < 0.001 0-0.300 [facility] Zffmle6009-86-03 03:01:00* Test Item Value Reference Range Interpretation Comments Creatine Kinase (test code = 2157-6) 17 29-168 L [facility]iscoB-Type Natriuretic Vgetixi6315-27-50 09:37:00* Test Item Value Reference Range Interpretation Comments B-Type Natriuretic Peptide (test code = 69399-3) 232.4 0-100 H [facility]iscoCHEST SINGLE (PORTABLE)2019-06-27 09:27:00 [facility] [address] [place] [address] Patient Name: YUE RAMSEY MR #: [id number] : 1935 Age/Sex: 83/F Req #: [id number] Adm Physician: Ordered by: CANDIDA ROSE MD Report #: [id number] Location: ER Room/Bed: Procedure: [id number] DX /CHEST SINGLE (PORTABLE) Exam Date: 06/27/19 Exam Ti me: 0850 REPORT STATUS: Signed E XAMINATION: CHEST SINGLE (PORTABLE) INDICATION: Chest pain, l ook for CHF, enlarge Mediastinum [id number] COMPARISON: 9 FINDINGS: AP view TUBES and LINES: None. LUNGS: Lung s are well inflated. There are increased interstitial opacities, consistent w ith interstitial edema. PLEURA: No pleural effusion or pneumothorax. HEART AND MEDIASTINUM: The cardiomediastinal silhouette is unremarkable. BONES AND SOFT TISSUES: No acute osseous lesion. Soft tissues are unremar kable. UPPER ABDOMEN: No free air under the diaphragm. IMPRESSION: Increased interstitial opacities, consistent with interstitial edema. Signed by: Jordi Drew MD on 06/27/2019 9:29 AM Dictated By: JAZMYNE DREW MD 8 Transcribed By: GELY on 06/27/19928 COPY TO: CANDIDA ROSE MD Lactic Acid Ssdzr5593-15-91 09:07:00* Test Item Value Reference Range Interpretation Comments Lactic Acid Level (test code = Lactic Acid Level) 2.3 0.5- 2.0 HH Results repeated and called to ELIZABETH ORNELAS at 904 on 06/27/19 by Madhu graf Read back and verified.[facility] Acid Zbonl4726-91-89 09:07:00* Test Item Value Reference Range Interpretation Comments Lactic Acid Level (test code = Lactic Acid Level) 2.3 0.5- 2.0 HH Results repeated and called to ELIZABETH ORNELAS at 0906/27/19 by Madhu graf Read back and verified.[facility]iscoL[facility] Acid Uuajb4110-61-04 09:07:00* Test Item Value Reference Range Interpretation Comments Lactic Acid Level (test code = Lactic Acid Level) 2.3 0.5- 2.0 HH Results repeated and called to ELIZABETH ORNELAS at 09 on 06/27/19 by Madhu graf Read back and verified.[facility]iscoFluoroscopic procedure less than one hour wqlhutyc7723-93-89 07:10:00* Test Item Value Reference Range Interpretation Comments Lactic Acid Level (test code = Lactic Acid Level) 2.3 0.5- 2.0 Results repeated and called to ELIZABETH ORNELAS at 0906/27/19 by Madhu graf Read back and verified.[facility]iscoBlood culture 2019-06-27 07:10:00* Test Item Value Reference Range Interpretation Comments Blood Culture (test code = 97002440) NO GROWTH AFTER 5 DAYS, FINAL REPORT [facility]US RENAL RETROPERITONEAL NKBV2451-81-68 16:48:00 [place] [address] Patient Name: YUE RAMSEY MR #: [id number] : 1935 Age/Sex: 83/F Req #: [id number] Adm Physician: Ordered by: SHAILA LANDA MD Report #: [id number] Location: US Room/Bed: Procedure: [id number] US/U S RENAL RETROPERITONEAL COMP Exam Date: 06/22/19 Exa Time: 162 REPORT STATUS: Signed EXAM: Renal Ultrasound INDICATION: [id number] URINARY T RACT INFECTION COMPARISON: None TECHNIQUE: Transverse and longitudinal im ages of the kidneys and bladder were obtained. FINDINGS: Righ t Kidney: Length: 11.4 cm Appearance: Normal echogenicity. Collecting s ystem: No hydronephrosis Stones: None Cyst/Mass: Bilateral anechoic simple c ysts measuring up to 7.6 x 5.2 x 4.8 cm. Left Kidney: Length: 9.8 cm A ppearance: Normal echogenicity. Collecting system: No hydronephrosis Stone s: None Cyst/Mass: Multiple anechoic simple cysts measuring up to 2.2 x 2.1 x 2.37 m. Bladder: No mass or calculi. Weak left ureteral jet seen. Bladde r is underdistended with prevoid volume estimate of 12.6 cc. IMPRESSION: No renal calculi or hydronephrosis. Bilateral simple renal cysts as above . Signed by: Gilles Jimenez MD on 06/22/2019 4:49 PM Dictated By: STIVEN JIMENEZ MD 48 Transcribed B y: GELY on 06/22/191648 COPY TO: SHAILA LANDA MD ABDOMEN-1VIEW (KUB)2019-06-22 16:16:00 [place] [address] Patient Name: YUE RAMSEY MR #: [id number] : 1935 Age/Sex: 83/F Req #: [id number] Adm Physician: Ordered by: SHAILA LANDA MD Report #: [id number] Location: Room/Bed: Procedure: [id number] DX/A BDOMEN-1VIEW (KUB) Exam Date: 06/22/19 Exam Time: 15 20 REPORT STATUS: Signed Exam: K UB - 2 views Indication: Urinary tract infection Comparison: CT abdome n and pelvis of 04/15/2019 Findings: No radiographically apparent renal calculi. Nonobstructive bowel gas pattern. No free air. No acute osseous injur y. Degenerative changes of the visualized spine and both hip joints. Impr ession: No radiographically apparent renal calculi. Signed by: Gilles Jimenez MD on 06/22/2019 4:17 PM Dictated By: GILLES JIMENEZ MD Electronically Sign ed By: GILLES JIMENEZ MD on 06/22/191616 Transcribed By: GELY on 06/22/19 1617 COPY TO: SHAILA LANDA MD Urine [id number] 07:58:00* Test Item Value Reference Range Interpretation Comments Urine WBC (test code = 5821-4) 0-5 0-[address] [facility] CFK8359-08-65 07:58:00* Test Item Value Reference Range Interpretation Comments Urine RBC (test code = 53114-4) 0-5 0-[address] [facility] [facility] Jdubtgyl1021-55-57 07:58:00* Test Item Value Reference Range Interpretation Comments Urine Bacteria (test code = 36986-3) RARE NONE [facility] Epithelial Pqawe9637-32-17 07:58:00 * Test Item Value Reference Range Interpretation Comments Urine Epithelial Cells (test code = 40694-4) RARE NONE [facility] YOP4962-19-74 07:58:00* Test Item Value Reference Range Interpretation Comments Urine WBC (test code = 5821-4) 0-5 0-5 [facility] TTU1335-53-98 07:58:00* Test Item Value Reference Range Interpretation Comments Urine RBC (test code = 60658-3) 0-5 0-5 [facility] Takawxtj9887-31-28 07:58:00* Test Item Value Reference Range Interpretation Comments Urine Bacteria (test code = 65492-7) RARE NONE [facility] Epithelial Irlao5010-11-20 07:58:00 * Test Item Value Reference Range Interpretation Comments Urine Epithelial Cells (test code = 33545-9) RARE NONE [facility] VJF0757-19-27 07:58:00* Test Item Value Reference Range Interpretation Comments Urine WBC (test code = 5821-4) 0-5 0-5 [facility] KRU3329-94-81 07:58:00* Test Item Value Reference Range Interpretation Comments Urine RBC (test code = 29493-3) 0-5 0-5 [facility] Gpsbbdbk6903-25-39 07:58:00* Test Item Value Reference Range Interpretation Comments Urine Bacteria (test code = 48296-9) RARE NONE [facility] Epithelial Qzund2163-99-97 07:58:00 * Test Item Value Reference Range Interpretation Comments Urine Epithelial Cells (test code = 25902-1) RARE NONE [facility] Mckxe4061-02-97 07:25:00* Test Item Value Reference Range Interpretation Comments Urine Color (test code = 5778-6) YELLOW YELLOW [facility] Fjlukcr7457-40-71 07:25:00* Test Item Value Reference Range Interpretation Comments Urine Clarity (test code = 36511-7) CLEAR CLEAR [facility] Specific Pxeqbho3959-77-43 07:25:00 * Test Item Value Reference Range Interpretation Comments Urine Specific [place] (test code = 5811-5) 1.025 1.010-1.02 5 [facility] kS7854-26-90 07:25:00* Test Item Value Reference Range Interpretation Comments Urine pH (test code = 09591-5) 6 5-7 [facility] Leukocyte Wuoivxna9085-97-05 07:25:00* Test Item Value Reference Range Interpretation Comments Urine Leukocyte Esterase (test code = 5799-2) TRACE NEGATIVE H [facility] Usxqxht8902-71-89 07:25:00* Test Item Value Reference Range Interpretation Comments Urine Nitrite (test code = 78166-4) NEGATIVE NEGATIVE [facility] Qdvuana5859-78-91 07:25:00* Test Item Value Reference Range Interpretation Comments Urine Protein (test code = 5804-0) NEGATIVE NEGATIVE [facility] Glucose (UA)2019-05-12 07:25:00* Test Item Value Reference Range Interpretation Comments Urine Glucose (UA) (test code = 2349-9) NEGATIVE NEGATIVE [facility] Fjsrrgf5901-02-86 07:25:00* Test Item Value Reference Range Interpretation Comments Urine Ketones (test code = 67913-4) NEGATIVE NEGATIVE [facility] Enkptuidyqkl9570-07-25 07:25:00* Test Item Value Reference Range Interpretation Comments Urine Urobilinogen (test code = 78528-8) 0.2 0.2-1 [facility] Erdrtvrul0819-08-94 07:25:00* Test Item Value Reference Range Interpretation Comments Urine Bilirubin (test code = 1978-6) NEGATIVE NEGATIVE [facility] Tcoor3065-59-72 07:25:00* Test Item Value Reference Range Interpretation Comments Urine Blood (test code = 71064-6) TRACE NEGATIVE [facility] Ylyez8554-58-71 07:25:00* Test Item Value Reference Range Interpretation Comments Urine Color (test code = 5778-6) YELLOW YELLOW [facility] Nmftxia2345-78-30 07:25:00* Test Item Value Reference Range Interpretation Comments Urine Clarity (test code = 45962-1) CLEAR CLEAR [facility] Specific Fhslhfh8752-19-79 07:25:00 * Test Item Value Reference Range Interpretation Comments Urine Specific [place] (test code = 5811-5) 1.025 1.010-1.02 5 [facility] oB5433-12-93 07:25:00* Test Item Value Reference Range Interpretation Comments Urine pH (test code = 00093-4) 6 5-7 [facility] Leukocyte Zlxycuim8631-45-26 07:25:00* Test Item Value Reference Range Interpretation Comments Urine Leukocyte Esterase (test code = 5799-2) TRACE NEGATIVE H [facility] Smhachl1482-47-60 07:25:00* Test Item Value Reference Range Interpretation Comments Urine Nitrite (test code = 19562-0) NEGATIVE NEGATIVE [facility] Ovicdmz5629-76-80 07:25:00* Test Item Value Reference Range Interpretation Comments Urine Protein (test code = 5804-0) NEGATIVE NEGATIVE [facility] Glucose (UA)2019-05-12 07:25:00* Test Item Value Reference Range Interpretation Comments Urine Glucose (UA) (test code = 2349-9) NEGATIVE NEGATIVE [facility] Njplzpb0766-08-74 07:25:00* Test Item Value Reference Range Interpretation Comments Urine Ketones (test code = 86790-1) NEGATIVE NEGATIVE [facility] Grqjjjcscgbt1940-26-11 07:25:00* Test Item Value Reference Range Interpretation Comments Urine Urobilinogen (test code = 10831-4) 0.2 0.2-1 [facility] Bshkkbpfg0573-44-91 07:25:00* Test Item Value Reference Range Interpretation Comments Urine Bilirubin (test code = 1978-6) NEGATIVE NEGATIVE [facility] Nerka1342-10-31 07:25:00* Test Item Value Reference Range Interpretation Comments Urine Blood (test code = 76667-2) TRACE NEGATIVE [facility] Cgpyv1638-90-53 07:25:00* Test Item Value Reference Range Interpretation Comments Urine Color (test code = 5778-6) YELLOW YELLOW [facility] Fftnasr9642-06-60 07:25:00* Test Item Value Reference Range Interpretation Comments Urine Clarity (test code = 05932-3) CLEAR CLEAR [facility] Specific Qhzdmzh3941-11-78 07:25:00 * Test Item Value Reference Range Interpretation Comments Urine Specific [place] (test code = 5811-5) 1.025 1.010-1.02 5 [facility] xJ9536-71-18 07:25:00* Test Item Value Reference Range Interpretation Comments Urine pH (test code = 11155-5) 6 5-7 [facility] Leukocyte Zflamjsb6766-88-12 07:25:00* Test Item Value Reference Range Interpretation Comments Urine Leukocyte Esterase (test code = 5799-2) TRACE NEGATIVE H [facility] Rkksikt1163-37-40 07:25:00* Test Item Value Reference Range Interpretation Comments Urine Nitrite (test code = 73135-3) NEGATIVE NEGATIVE [facility] Rjwbfww6636-17-52 07:25:00* Test Item Value Reference Range Interpretation Comments Urine Protein (test code = 5804-0) NEGATIVE NEGATIVE [facility] Glucose (UA)2019-05-12 07:25:00* Test Item Value Reference Range Interpretation Comments Urine Glucose (UA) (test code = 2349-9) NEGATIVE NEGATIVE [facility] Uugsdpp5213-86-06 07:25:00* Test Item Value Reference Range Interpretation Comments Urine Ketones (test code = 15976-3) NEGATIVE NEGATIVE [facility] Dythsmkslroa4136-27-10 07:25:00* Test Item Value Reference Range Interpretation Comments Urine Urobilinogen (test code = 64437-5) 0.2 0.2-1 [facility] Vvobqfdgx9535-79-86 07:25:00* Test Item Value Reference Range Interpretation Comments Urine Bilirubin (test code = 1978-6) NEGATIVE NEGATIVE [facility] Uyogt5063-07-34 07:25:00* Test Item Value Reference Range Interpretation Comments Urine Blood (test code = 36487-5) TRACE NEGATIVE [facility] Ropogfx8597-72-44 13:09:00* Test Item Value Reference Range Interpretation Comments Urine Culture (test code = 630-4) No Result Data Provided [facility] Yoqduul3497-03-83 13:09:00* Test Item Value Reference Range Interpretation Comments Urine Culture (test code = 630-4) No Result Data Provided [facility] Diyclyg3530-04-98 13:09:00* Test Item Value Reference Range Interpretation Comments Urine Culture (test code = 630-4) No Result Data Provided [facility] Mjedahv6901-87-49 13:09:00* Test Item Value Reference Range Interpretation Comments Urine Culture (test code = 630-4) No Result Data Provided [facility] Slgkyen6722-55-70 13:09:00* Test Item Value Reference Range Interpretation Comments Urine Culture (test code = 630-4) No Result Data Provided [facility] Kbrnohp2947-66-89 13:09:00* Test Item Value Reference Range Interpretation Comments Urine Culture (test code = 630-4) No Result Data Provided [facility] KEJ7621-80-88 10:01:00* Test Item Value Reference Range Interpretation Comments Urine WBC (test code = 5821-4) 6-10 0-5 H [facility] MOI6677-01-95 10:01:00* Test Item Value Reference Range Interpretation Comments Urine RBC (test code = 41096-1) 0-5 0-5 [facility] Lmemvurm3129-58-93 10:01:00* Test Item Value Reference Range Interpretation Comments Urine Bacteria (test code = 09590-7) FEW NONE [facility] Epithelial Vjbrn8786-74-62 10:01:00 * Test Item Value Reference Range Interpretation Comments Urine Epithelial Cells (test code = 19434-2) MODERATE NONE [facility] Raczu8701-83-45 09:52:00* Test Item Value Reference Range Interpretation Comments Urine Color (test code = 5778-6) YELLOW YELLOW [facility] Qxbfmdp0292-90-79 09:52:00* Test Item Value Reference Range Interpretation Comments Urine Clarity (test code = 48813-3) CLEAR CLEAR [facility] Specific Yvtulod6359-37-80 09:52:00 * Test Item Value Reference Range Interpretation Comments Urine Specific [place] (test code = 5811-5) 1.025 1.010-1.02 5 [facility] qN7008-92-91 09:52:00* Test Item Value Reference Range Interpretation Comments Urine pH (test code = 33685-7) 6 5-7 [facility] Leukocyte Offefyvv6243-34-03 09:52:00* Test Item Value Reference Range Interpretation Comments Urine Leukocyte Esterase (test code = 31752-4) SMALL NEGATIV E [facility] Fjgeshe8188-35-13 09:52:00* Test Item Value Reference Range Interpretation Comments Urine Nitrite (test code = 46871-3) NEGATIVE NEGATIVE [facility] Sbhmcgz8440-25-82 09:52:00* Test Item Value Reference Range Interpretation Comments Urine Protein (test code = 58263-2) 1+ NEGATIVE H [facility] Glucose (UA)2019-04-24 09:52:00* Test Item Value Reference Range Interpretation Comments Urine Glucose (UA) (test code = 61053-8) NEGATIVE NEGATIVE [facility] Mpilnws2961-42-22 09:52:00* Test Item Value Reference Range Interpretation Comments Urine Ketones (test code = 64373-3) TRACE NEGATIVE H [facility] Qhjgcesfrtua6505-24-97 09:52:00* Test Item Value Reference Range Interpretation Comments Urine Urobilinogen (test code = 41013-4) 0.2 0.2-1 [facility] Nzokownef6406-55-99 09:52:00* Test Item Value Reference Range Interpretation Comments Urine Bilirubin (test code = 1977-8) NEGATIVE NEGATIVE [facility] Njzaw5934-62-04 09:52:00* Test Item Value Reference Range Interpretation Comments Urine Blood (test code = 46486-7) NEGATIVE NEGATIVE [facility]iscoB[facility] urine plikaiv5685-51-78 07:33:00* Test Item Value Reference Range Interpretation Comments Urine Culture (test code = 630-4) ENTEROCOCCUS FAECALIS [facility]/PELVIS T5195-85-04 10:56:00 [facility] [address] [address] Patient Name: YUE RAMSEY MR #: [id number] : 1935 Age/Sex: 83/F Req #: [id number] Adm Physician: Ordered by: GIRISH BROWN MD Report #: [id number] Location: ER Room/Bed: Procedure: [id number] C T/CT ABDOMEN/PELVIS W Exam Date: 04/15/19 Exam Time: 1010 REPORT STATUS: Signed EXAM : CT Abdomen and Pelvis WITH intravenous contrast INDICATION: Abdominal p ain COMPARISON: None. TECHNIQUE: Abdomen and pelvis were scanned utili malinang a multidetector helical scanner from the lung base to the pubic symphysis after administration of IV contrast. Coronal and sagittal reformations were o btained. Routine protocol was performed. Scan was performed during portal veno us phase. IV CONTRAST: 100mL of Isovue 370 ORAL CONTRAST: Water RADIATION DOSE: Total DLP: 292.6 mGy*cm Dose modulation, iterative jose f nstruction, and/or weight based adjustment of the mA/kV was utilized to reduce the radiation dose to as low as reasonably achievable. FINDINGS: LOWE R THORAX: Moderate sliding hiatal hernia. HEPATOBILIARY: No focal hepatic l esions. No biliary ductal dilatation. The gallbladder appears unremarkable. SPLEEN: No splenomegaly. PANCREAS: No focal masses or ductal dilatation . ADRENALS: No adrenal nodules. KIDNEYS/URETERS: Bilateral renal cysts me asure up to 4.8 cm on the right and 2.5 cm on the left. No hydronephrosis or r enal calculi. No solid renal mass lesions. PELVIC ORGANS/BLADDER: Status pos t hysterectomy. PERITONEUM / RETROPERITONEUM: No free air or fluid. LYMPH NODES: Prominent periportal lymph nodes measure up to 11 mm short axis. VESSE LS: Diffuse atherosclerotic calcifications of the nonaneurysmal abdominal aort a and major branches. GI TRACT: Severe sigmoid and descending colon diverti culosis without CT evidence of diverticulitis. No abnormal bowel thickening. N o bowel obstruction. BONES AND SOFT TISSUES: No acute osseous injury. No donato spicious lytic or blastic lesions. Moderate degenerative changes of the visual ized spine. IMPRESSION: No acute findings in the abdomen or pelvis. Severe sigmoid and descending colon diverticulosis without CT evidence of div erticulitis. Moderate sliding hiatal hernia. Signed by: Gilles Jimenez MD on 04/15/2019 11:04 AM Dictated By: GILLES JIMENEZ MD 1104 Transcribed By: GELY on 04/15/19 1104 COPY TO: GIRISH BROWN MD Sodium Wshch4615-93-96 09:55:00* Test Item Value Reference Range Interpretation Comments Sodium Level (test code = 2951-2) 142 136-145 [facility] Fqgtq5701-16-69 09:55:00* Test Item Value Reference Range Interpretation Comments Potassium Level (test code = 2823-3) 3.7 3.5-5.1 [facility]iscoChloride Taxjo5789-94-39 09:55:00* Test Item Value Reference Range Interpretation Comments Chloride Level (test code = 2075-0) 106 98-107 [facility]iscoCarbon Dioxide Qgycf0429-67-69 09:55:00* Test Item Value Reference Range Interpretation Comments Carbon Dioxide Level (test code = 2028-9) 25 22-29 [facility]iscoAnion Ynx2340-90-80 09:55:00* Test Item Value Reference Range Interpretation Comments Anion Gap (test code = 64323-3) 14.7 8-16 [facility]iscoBlood Urea Drgiwrwh0143-89-84 09:55:00* Test Item Value Reference Range Interpretation Comments Blood Urea Nitrogen (test code = 3094-0) 20 7-26 [facility]iscoCreatinine2019-11-21 09:55:00* Test Item Value Reference Range Interpretation Comments Creatinine (test code = 2160-0) 1.39 0.57-1.11 H [facility]iscoBUN/Creatinine Yaokz9321-04-97 09:55:00* Test Item Value Reference Range Interpretation Comments BUN/Creatinine Ratio (test code = 3097-3) 14 6-25 [facility]iscoEstimat Glomerular Filtration Rate 2019-04-15 09:55:00* Test Item Value Reference Range Interpretation Comments Estimat Glomerular Filtration Rate (test code = 750325339) 36 >60 L Ranges were taken from the National Kidney Disease Education Program and the [facility] literature.Reference ranges:60 or greater: Lrbycv17-79 ( for 3 consecutive months): Chronic kidney disease 15 or less: Kidney failureTexas Health FriscoGlucose Kiqfz8656-02-56 09:55:00* Test Item Value Reference Range Interpretation Comments Glucose Level (test code = HOQ8946) 106 74-118 [facility]iscoCalcium Lclzx6677-85-99 09:55:00* Test Item Value Reference Range Interpretation Comments Calcium Level (test code = 76241-9) 10.0 8.4-10.2 [facility]iscoMagnesium Wnxju4391-61-11 09:55:00* Test Item Value Reference Range Interpretation Comments Magnesium Level (test code = 40069-3) 2.1 1.3-2.1 [facility]iscoTotal Rptcpozye7174-55-84 09:55:00* Test Item Value Reference Range Interpretation Comments Total Bilirubin (test code = 1975-2) 0.6 0.2-1.2 [facility] FriscoAspartate Amino Transf (AST/SGOT) 2019-04-15 09:55:00* Test Item Value Reference Range Interpretation Comments Aspartate Amino Transf (AST/SGOT) (test code = Aspartate Amino Transf (AST/SGOT)) 33 5-34 [facility]iscoAlanine Aminotransferase (ALT/SGPT) 2019-04-15 09:55:00* Test Item Value Reference Range Interpretation Comments Alanine Aminotransferase (ALT/SGPT) (test code = 1742-6) 27 0-55 [facility] Xbsrqzp2086-06-53 09:55:00* Test Item Value Reference Range Interpretation Comments Total Protein (test code = 2885-2) 7.2 6.5-8.1 [facility]iscoAlbumin2019-11-21 09:55:00* Test Item Value Reference Range Interpretation Comments Albumin (test code = 1751-7) 3.7 3.5-5.0 [facility]iscoGlobulin2019-11-21 09:55:00* Test Item Value Reference Range Interpretation Comments Globulin (test code = 24422-1) 3.5 2.3-3.5 [facility]iscoAlbumin/Globulin Nqavk8154-97-67 09:55:00 * Test Item Value Reference Range Interpretation Comments Albumin/Globulin Ratio (test code = 1759-0) 1.1 0.8-2.0 [facility]iscoAlkaline Yzvnkyukxsm9528-72-79 09:55:00* Test Item Value Reference Range Interpretation Comments Alkaline Phosphatase (test code = 6768-6) 87 40-150 [facility]iscoB-Type Natriuretic Lgsqmvw6126-04-18 09:55:00* Test Item Value Reference Range Interpretation Comments B-Type Natriuretic Peptide (test code = 61644-9) 136.8 0-100 H [facility]iscoCreatine Vndqks8911-93-20 09:55:00* Test Item Value Reference Range Interpretation Comments Creatine Kinase (test code = 2157-6) 76 29-168 [facility]iscoCreatine Kinase [id number] 09:55:00* Test Item Value Reference Range Interpretation Comments Creatine Kinase MB (test code = 17892-2) 3.60 0-5.0 [facility]iscoTroponin G6065-39-30 09:55:00* Test Item Value Reference Range Interpretation Comments Troponin I (test code = OFD2813) 0.036 0-0.300 [facility]iscoLipase2019-11-21 09:55:00* Test Item Value Reference Range Interpretation Comments Lipase (test code = 3040-3) 75 8-78 [facility] Center[facility] Swbpt7851-80-51 09:55:00* Test Item Value Reference Range Interpretation Comments Sodium Level (test code = 2951-2) 142 136-145 [facility]iscoPotassium Hqtnt5169-54-98 09:55:00* Test Item Value Reference Range Interpretation Comments Potassium Level (test code = 2823-3) 3.7 3.5-5.1 [facility]iscoChloride Wlrlq1331-57-53 09:55:00* Test Item Value Reference Range Interpretation Comments Chloride Level (test code = 2075-0) 106 98-107 [facility]iscoCarbon Dioxide Vsjuu6123-92-47 09:55:00* Test Item Value Reference Range Interpretation Comments Carbon Dioxide Level (test code = 2028-9) 25 22-29 [facility]iscoAnion Uci3858-14-85 09:55:00* Test Item Value Reference Range Interpretation Comments Anion Gap (test code = 74362-9) 14.7 8-16 [facility]iscoBlood Urea Swszhggx8108-51-96 09:55:00* Test Item Value Reference Range Interpretation Comments Blood Urea Nitrogen (test code = 3094-0) 20 7-26 [facility]iscoCreatinine2019-11-21 09:55:00* Test Item Value Reference Range Interpretation Comments Creatinine (test code = 2160-0) 1.39 0.57-1.11 H [facility]iscoBUN/Creatinine Cmspq2685-03-42 09:55:00* Test Item Value Reference Range Interpretation Comments BUN/Creatinine Ratio (test code = 3097-3) 14 6-25 [facility]iscoEstimat Glomerular Filtration Rate 2019-04-15 09:55:00* Test Item Value Reference Range Interpretation Comments Estimat Glomerular Filtration Rate (test code = 167849180) 36 >60 L Ranges were taken from the National Kidney Disease Education Program and the [facility] Kidney Foundation literature.Reference ranges:60 or greater: Cqiywg93-76 ( for 3 consecutive months): Chronic kidney disease 15 or less: Kidney failureCHI St. [facility] CenterGlucose Mfihx2771-45-60 09:55:00* Test Item Value Reference Range Interpretation Comments Glucose Level (test code = HTK6156) 106 74-118 [facility]iscoCalcium Xklik7847-58-16 09:55:00* Test Item Value Reference Range Interpretation Comments Calcium Level (test code = 84310-3) 10.0 8.4-10.2 [facility]iscoMagnesium Kppme7547-88-42 09:55:00* Test Item Value Reference Range Interpretation Comments Magnesium Level (test code = 73970-2) 2.1 1.3-2.1 [facility]iscoTotal Hlwjlvhkp2343-16-95 09:55:00* Test Item Value Reference Range Interpretation Comments Total Bilirubin (test code = 1975-2) 0.6 0.2-1.2 [facility]iscoAspartate Amino Transf (AST/SGOT) 2019-04-15 09:55:00* Test Item Value Reference Range Interpretation Comments Aspartate Amino Transf (AST/SGOT) (test code = Aspartate Amino Transf (AST/SGOT)) 33 5-34 [facility]iscoAlanine Aminotransferase (ALT/SGPT) 2019-04-15 09:55:00* Test Item Value Reference Range Interpretation Comments Alanine Aminotransferase (ALT/SGPT) (test code = 1742-6) 27 0-55 [facility]iscoTotal Daasetu2993-55-65 09:55:00* Test Item Value Reference Range Interpretation Comments Total Protein (test code = 2885-2) 7.2 6.5-8.1 [facility]iscoAlbumin2019-11-21 09:55:00* Test Item Value Reference Range Interpretation Comments Albumin (test code = 1751-7) 3.7 3.5-5.0 [facility]iscoGlobulin2019-11-21 09:55:00* Test Item Value Reference Range Interpretation Comments Globulin (test code = 30684-5) 3.5 2.3-3.5 [facility]iscoAlbumin/Globulin Qfoko1904-13-85 09:55:00 * Test Item Value Reference Range Interpretation Comments Albumin/Globulin Ratio (test code = 1759-0) 1.1 0.8-2.0 [facility]iscoAlkaline Dyafoeeiwut4564-35-37 09:55:00* Test Item Value Reference Range Interpretation Comments Alkaline Phosphatase (test code = 6768-6) 87 40-150 [facility]iscoB-Type Natriuretic Stqhsvh5201-59-34 09:55:00* Test Item Value Reference Range Interpretation Comments B-Type Natriuretic Peptide (test code = 93029-4) 136.8 0-100 H [facility]iscoCreatine Lczgip6525-79-21 09:55:00* Test Item Value Reference Range Interpretation Comments Creatine Kinase (test code = 2157-6) 76 29-168 [facility]iscoCreatine Kinase TV1517-16-40 09:55:00* Test Item Value Reference Range Interpretation Comments Creatine Kinase MB (test code = 36396-9) 3.60 0-5.0 [facility]iscoTroponin K3819-57-20 09:55:00* Test Item Value Reference Range Interpretation Comments Troponin I (test code = UIU1317) 0.036 0-0.300 [facility]iscoLipase2019-11-21 09:55:00* Test Item Value Reference Range Interpretation Comments Lipase (test code = 3040-3) 75 8-78 [facility] Centerodium Xkgnc1428-44-59 09:55:00* Test Item Value Reference Range Interpretation Comments Sodium Level (test code = 2951-2) 142 136-145 [facility]iscoPotassium Ehevt7346-85-09 09:55:00* Test Item Value Reference Range Interpretation Comments Potassium Level (test code = 2823-3) 3.7 3.5-5.1 [facility]iscoChloride Duggu0070-99-19 09:55:00* Test Item Value Reference Range Interpretation Comments Chloride Level (test code = 2075-0) 106 98-107 [facility]iscoCarbon Dioxide Jcklp0769-39-82 09:55:00* Test Item Value Reference Range Interpretation Comments Carbon Dioxide Level (test code = 2028-9) 25 22-29 [facility]iscoAnion Zjp8745-94-59 09:55:00* Test Item Value Reference Range Interpretation Comments Anion Gap (test code = 02359-1) 14.7 8-16 [facility]iscoBlood Urea Aobzlnub3196-16-41 09:55:00* Test Item Value Reference Range Interpretation Comments Blood Urea Nitrogen (test code = 3094-0) 20 7-26 [facility]iscoCreatinine2019-11-21 09:55:00* Test Item Value Reference Range Interpretation Comments Creatinine (test code = 2160-0) 1.39 0.57-1.11 H [facility]iscoBUN/Creatinine Gimtm4095-65-47 09:55:00* Test Item Value Reference Range Interpretation Comments BUN/Creatinine Ratio (test code = 3097-3) 14 6-25 [facility]iscoEstimat Glomerular Filtration Rate 2019-04-15 09:55:00* Test Item Value Reference Range Interpretation Comments Estimat Glomerular Filtration Rate (test code = 020736181) 36 >60 L Ranges were taken from the National Kidney Disease Education Program and the [facility] literature.Reference ranges:60 or greater: Xkrryf27-05 ( for 3 consecutive months): Chronic kidney disease 15 or less: Kidney failureTexas Health FriscoGlucose Ftjvs6642-10-54 09:55:00* Test Item Value Reference Range Interpretation Comments Glucose Level (test code = AJU3554) 106 74-118 [facility]iscoCalcium Otfeh3435-82-10 09:55:00* Test Item Value Reference Range Interpretation Comments Calcium Level (test code = 13959-5) 10.0 8.4-10.2 [facility]iscoMagnesium Jnfhb6997-12-82 09:55:00* Test Item Value Reference Range Interpretation Comments Magnesium Level (test code = 59908-7) 2.1 1.3-2.1 [facility]iscoTotal Plqyhmtsf9059-77-77 09:55:00* Test Item Value Reference Range Interpretation Comments Total Bilirubin (test code = 1975-2) 0.6 0.2-1.2 [facility]iscoAspartate Amino Transf (AST/SGOT) 2019-04-15 09:55:00* Test Item Value Reference Range Interpretation Comments Aspartate Amino Transf (AST/SGOT) (test code = Aspartate Amino Transf (AST/SGOT)) 33 5-34 [facility]iscoAlanine Aminotransferase (ALT/SGPT) 2019-04-15 09:55:00* Test Item Value Reference Range Interpretation Comments Alanine Aminotransferase (ALT/SGPT) (test code = 1742-6) 27 0-55 [facility] Pzbumye5056-84-58 09:55:00* Test Item Value Reference Range Interpretation Comments Total Protein (test code = 2885-2) 7.2 6.5-8.1 [facility]iscoAlbumin2019-11-21 09:55:00* Test Item Value Reference Range Interpretation Comments Albumin (test code = 1751-7) 3.7 3.5-5.0 [facility]iscoGlobulin2019-11-21 09:55:00* Test Item Value Reference Range Interpretation Comments Globulin (test code = 15174-8) 3.5 2.3-3.5 [facility]iscoAlbumin/Globulin Dkrzr1600-35-96 09:55:00 * Test Item Value Reference Range Interpretation Comments Albumin/Globulin Ratio (test code = 1759-0) 1.1 0.8-2.0 [facility]iscoAlkaline Pecjwkweejp8401-57-38 09:55:00* Test Item Value Reference Range Interpretation Comments Alkaline Phosphatase (test code = 6768-6) 87 40-150 [facility]iscoB-Type Natriuretic Ywsjefp1129-62-25 09:55:00* Test Item Value Reference Range Interpretation Comments B-Type Natriuretic Peptide (test code = 35805-7) 136.8 0-100 H [facility]iscoCreatine Vllhom4112-99-15 09:55:00* Test Item Value Reference Range Interpretation Comments Creatine Kinase (test code = 2157-6) 76 29-168 [facility]iscoCreatine Kinase FP8253-92-74 09:55:00* Test Item Value Reference Range Interpretation Comments Creatine Kinase MB (test code = 35811-3) 3.60 0-5.0 [facility]iscoTroponin B6479-90-77 09:55:00* Test Item Value Reference Range Interpretation Comments Troponin I (test code = PVE6476) 0.036 0-0.300 [facility]iscoLipase2019-11-21 09:55:00* Test Item Value Reference Range Interpretation Comments Lipase (test code = 3040-3) 75 8-78 [facility] Centerodium Woeka2121-50-63 09:55:00* Test Item Value Reference Range Interpretation Comments Sodium Level (test code = 2951-2) 142 136-145 [facility]iscoPotassium Jlqox1272-96-85 09:55:00* Test Item Value Reference Range Interpretation Comments Potassium Level (test code = 2823-3) 3.7 3.5-5.1 [facility]iscoChloride Zhbtb3306-17-51 09:55:00* Test Item Value Reference Range Interpretation Comments Chloride Level (test code = 2075-0) 106 98-107 [facility]iscoCarbon Dioxide Sebej0252-35-43 09:55:00* Test Item Value Reference Range Interpretation Comments Carbon Dioxide Level (test code = 2028-9) 25 22-29 [facility]iscoAnion Cgn8604-07-17 09:55:00* Test Item Value Reference Range Interpretation Comments Anion Gap (test code = 59786-0) 14.7 8-16 [facility]iscoBlood Urea Hlcbyfui4553-99-11 09:55:00* Test Item Value Reference Range Interpretation Comments Blood Urea Nitrogen (test code = 3094-0) 20 7-26 [facility]iscoCreatinine2019-11-21 09:55:00* Test Item Value Reference Range Interpretation Comments Creatinine (test code = 2160-0) 1.39 0.57-1.11 H [facility]iscoBUN/Creatinine Xshui6536-20-13 09:55:00* Test Item Value Reference Range Interpretation Comments BUN/Creatinine Ratio (test code = 3097-3) 14 6-25 [facility]iscoEstimat Glomerular Filtration Rate 2019-04-15 09:55:00* Test Item Value Reference Range Interpretation Comments Estimat Glomerular Filtration Rate (test code = 074220454) 36 >60 L Ranges were taken from the National Kidney Disease Education Program and the [facility] literature.Reference ranges:60 or greater: Qytzot12-26 ( for 3 consecutive months): Chronic kidney disease 15 or less: Kidney failureTexas Health FriscoGlucose Qeqej3416-85-30 09:55:00* Test Item Value Reference Range Interpretation Comments Glucose Level (test code = YFX0727) 106 74-118 [facility]iscoCalcium Fdbda4655-63-51 09:55:00* Test Item Value Reference Range Interpretation Comments Calcium Level (test code = 45075-4) 10.0 8.4-10.2 [facility]iscoMagnesium Uomnn6912-02-66 09:55:00* Test Item Value Reference Range Interpretation Comments Magnesium Level (test code = 63280-2) 2.1 1.3-2.1 [facility]iscoTotal Izvvfjvjc8002-82-17 09:55:00* Test Item Value Reference Range Interpretation Comments Total Bilirubin (test code = 1975-2) 0.6 0.2-1.2 [facility] FriscoAspartate Amino Transf (AST/SGOT) 2019-04-15 09:55:00* Test Item Value Reference Range Interpretation Comments Aspartate Amino Transf (AST/SGOT) (test code = Aspartate Amino Transf (AST/SGOT)) 33 5-34 [facility]iscoAlanine Aminotransferase (ALT/SGPT) 2019-04-15 09:55:00* Test Item Value Reference Range Interpretation Comments Alanine Aminotransferase (ALT/SGPT) (test code = 1742-6) 27 0-55 [facility]iscoTotal Hzhpxzg4730-37-75 09:55:00* Test Item Value Reference Range Interpretation Comments Total Protein (test code = 2885-2) 7.2 6.5-8.1 [facility]iscoAlbumin2019-11-21 09:55:00* Test Item Value Reference Range Interpretation Comments Albumin (test code = 1751-7) 3.7 3.5-5.0 [facility]iscoGlobulin2019-11-21 09:55:00* Test Item Value Reference Range Interpretation Comments Globulin (test code = 33567-4) 3.5 2.3-3.5 [facility]iscoAlbumin/Globulin Lzxxw2397-73-01 09:55:00 * Test Item Value Reference Range Interpretation Comments Albumin/Globulin Ratio (test code = 1759-0) 1.1 0.8-2.0 [facility]iscoAlkaline Vkdbmoenojk7957-60-13 09:55:00* Test Item Value Reference Range Interpretation Comments Alkaline Phosphatase (test code = 6768-6) 87 40-150 [facility]iscoB-Type Natriuretic Iyohuls3856-40-77 09:55:00* Test Item Value Reference Range Interpretation Comments B-Type Natriuretic Peptide (test code = 84157-9) 136.8 0-100 H [facility]iscoCreatine Cpcktz9629-83-74 09:55:00* Test Item Value Reference Range Interpretation Comments Creatine Kinase (test code = 2157-6) 76 29-168 [facility]iscoCreatine Kinase TN5314-98-68 09:55:00* Test Item Value Reference Range Interpretation Comments Creatine Kinase MB (test code = 12264-7) 3.60 0-5.0 [facility]iscoTroponin K6911-45-88 09:55:00* Test Item Value Reference Range Interpretation Comments Troponin I (test code = IGA1881) 0.036 0-0.300 [facility]iscoLipase2019-11-21 09:55:00* Test Item Value Reference Range Interpretation Comments Lipase (test code = 3040-3) 75 8-78 [facility] Center[facility] Gztsh6337-72-78 09:55:00* Test Item Value Reference Range Interpretation Comments Sodium Level (test code = 2951-2) 142 136-145 [facility]iscoPotassium Vdutn5014-67-69 09:55:00* Test Item Value Reference Range Interpretation Comments Potassium Level (test code = 2823-3) 3.7 3.5-5.1 [facility]iscoChloride Emvbn2883-77-15 09:55:00* Test Item Value Reference Range Interpretation Comments Chloride Level (test code = 2075-0) 106 98-107 [facility]iscoCarbon Dioxide Vpthk3792-87-34 09:55:00* Test Item Value Reference Range Interpretation Comments Carbon Dioxide Level (test code = 2028-9) 25 22-29 [facility] FriscoAnion Reg8464-68-64 09:55:00* Test Item Value Reference Range Interpretation Comments Anion Gap (test code = 77047-7) 14.7 8-16 [facility]iscoBlood Urea Dzdpwdjh1111-30-01 09:55:00* Test Item Value Reference Range Interpretation Comments Blood Urea Nitrogen (test code = 3094-0) 20 7-26 [facility]iscoCreatinine2019-11-21 09:55:00* Test Item Value Reference Range Interpretation Comments Creatinine (test code = 2160-0) 1.39 0.57-1.11 H [facility]iscoBUN/Creatinine Bhcbv6797-07-48 09:55:00* Test Item Value Reference Range Interpretation Comments BUN/Creatinine Ratio (test code = 3097-3) 14 6-25 [facility]iscoEstimat Glomerular Filtration Rate 2019-04-15 09:55:00* Test Item Value Reference Range Interpretation Comments Estimat Glomerular Filtration Rate (test code = 047171243) 36 >60 L Ranges were taken from the National Kidney Disease Education Program and the [facility] literature.Reference ranges:60 or greater: Icfjhf05-29 ( for 3 consecutive months): Chronic kidney disease 15 or less: Kidney failureTexas Health FriscoGlucose Doaxz8914-51-31 09:55:00* Test Item Value Reference Range Interpretation Comments Glucose Level (test code = RCN9292) 106 74-118 [facility]iscoCalcium Vlqqy8696-30-76 09:55:00* Test Item Value Reference Range Interpretation Comments Calcium Level (test code = 37632-6) 10.0 8.4-10.2 [facility]iscoMagnesium Hhowa4326-17-98 09:55:00* Test Item Value Reference Range Interpretation Comments Magnesium Level (test code = 98451-0) 2.1 1.3-2.1 [facility]iscoTotal Hfxnnsqvx1275-17-22 09:55:00* Test Item Value Reference Range Interpretation Comments Total Bilirubin (test code = 1975-2) 0.6 0.2-1.2 [facility] FriscoAspartate Amino Transf (AST/SGOT) 2019-04-15 09:55:00* Test Item Value Reference Range Interpretation Comments Aspartate Amino Transf (AST/SGOT) (test code = Aspartate Amino Transf (AST/SGOT)) 33 5-34 [facility]iscoAlanine Aminotransferase (ALT/SGPT) 2019-04-15 09:55:00* Test Item Value Reference Range Interpretation Comments Alanine Aminotransferase (ALT/SGPT) (test code = 1742-6) 27 0-55 [facility]iscoTotal Bgngwyk0519-84-16 09:55:00* Test Item Value Reference Range Interpretation Comments Total Protein (test code = 2885-2) 7.2 6.5-8.1 [facility]iscoAlbumin2019-11-21 09:55:00* Test Item Value Reference Range Interpretation Comments Albumin (test code = 1751-7) 3.7 3.5-5.0 [facility]iscoGlobulin2019-11-21 09:55:00* Test Item Value Reference Range Interpretation Comments Globulin (test code = 29616-0) 3.5 2.3-3.5 [facility]iscoAlbumin/Globulin Dkave6177-40-17 09:55:00 * Test Item Value Reference Range Interpretation Comments Albumin/Globulin Ratio (test code = 1759-0) 1.1 0.8-2.0 [facility]iscoAlkaline Qpvpuqnwnty9642-85-87 09:55:00* Test Item Value Reference Range Interpretation Comments Alkaline Phosphatase (test code = 6768-6) 87 40-150 [facility]iscoB-Type Natriuretic Ztvlppq5229-32-31 09:55:00* Test Item Value Reference Range Interpretation Comments B-Type Natriuretic Peptide (test code = 09567-0) 136.8 0-100 H [facility]iscoCreatine Mjrjqq8479-04-16 09:55:00* Test Item Value Reference Range Interpretation Comments Creatine Kinase (test code = 2157-6) 76 29-168 [facility]iscoCreatine Kinase NZ8415-99-73 09:55:00* Test Item Value Reference Range Interpretation Comments Creatine Kinase MB (test code = 24641-4) 3.60 0-5.0 [facility] FriscoTroponin M1544-51-05 09:55:00* Test Item Value Reference Range Interpretation Comments Troponin I (test code = XTF5332) 0.036 0-0.300 [facility]00* Test Item Value Reference Range Interpretation Comments Lipase (test code = 3040-3) 75 8-78 [facility] Vbhkc9406-86-15 09:55:00* Test Item Value Reference Range Interpretation Comments Magnesium Level (test code = 12395-8) 2.1 1.3-2.1 [facility]2019-[facility] 09:55:00* Test Item Value Reference Range Interpretation Comments Lipase (test code = 3040-3) 75 8-78 [facility] Zdjcd5003-14-33 09:55:00* Test Item Value Reference Range Interpretation Comments Magnesium Level (test code = 08894-8) 2.1 1.3-2.1 [facility]2019-11-21 09:55:00* Test Item Value Reference Range Interpretation Comments Lipase (test code = 3040-3) 75 8-78 [facility] Xhdvf9635-87-30 09:55:00* Test Item Value Reference Range Interpretation Comments Magnesium Level (test code = 23820-1) 2.1 1.3-2.1 [facility]2019-11-21 09:55:00* Test Item Value Reference Range Interpretation Comments Lipase (test code = 3040-3) 75 8-78 [facility]2019-04-15 09:32:00 [facility] [address] [place] [address] Patient Name: YUE RAMSEY MR #: [id number] : 1935 Age/Sex: 83/F Req #: [id number] Adm Physician: Ordered by: GIRISH BROWN MD Report #: [id number] Location: ER Room/Bed: Procedure: [id number] D X/CHEST SINGLE (PORTABLE) Exam Date: 04/15/19 Exam T volodymyr: 0911 REPORT STATUS: Signed EXAMINATION: CHEST SINGLE (PORTABLE) INDICATION: Cough, chest pain COMPARISON: Chest radiograph of 11/08/2018 FINDINGS: LINES/TUBES :EKG leads overlie the chest. LUNGS:The lungs are well-inflated. No focal c onsolidation or pulmonary edema. PLEURA:No pleural effusion or pneumothorax . MEDIASTINUM:The cardiomediastinal silhouette appears unchanged in size an d shape. Atherosclerotic calcifications of the thoracic aorta. BONES/SOFT TISSUES:No acute osseous injury. ABDOMEN:No free air under the diaphragm. IMPRESSION: No focal pneumonia or pulmonary edema. Signed by: Aminta Jimenez MD on 04/15/2019 9:33 AM Dictated By: GILLES JIMENEZ MD Electronic ally Signed By: GILLES JIMENEZ MD on 04/15/19932 Transcribed By: GELY on 04/15 COPY TO: GIRISH BROWN MD Urine HPG0763-07-23 09:29:00 * Test Item Value Reference Range Interpretation Comments Urine WBC (test code = 5821-4) 6-10 0-5 [facility] [id number] 09:29:00* Test Item Value Reference Range Interpretation Comments Urine RBC (test code = 43352-5) 0-5 0-5 [facility] Ufppauxq7919-47-13 09:29:00* Test Item Value Reference Range Interpretation Comments Urine Bacteria (test code = 36967-9) MANY NONE [facility] Epithelial Xhrxt1477-40-30 09:29:00 * Test Item Value Reference Range Interpretation Comments Urine Epithelial Cells (test code = 38794-8) MODERATE NONE [facility] Amorphous Ojvleyva6940-32-84 09:29:00* Test Item Value Reference Range Interpretation Comments Urine Amorphous Sediment (test code = 8246-1) FEW FEW [facility] Hyaline Oyujl6493-14-47 09:29:00* Test Item Value Reference Range Interpretation Comments Urine Hyaline Casts (test code = 20478-2) 0-1 0-1 [facility] Coarse Granular Amzik0442-59-84 09:29:00* Test Item Value Reference Range Interpretation Comments Urine Coarse Granular Casts (test code = 62635-4) 1-5 >0 [facility] Ljrmy2834-21-92 09:29:00* Test Item Value Reference Range Interpretation Comments Urine Mucus (test code = 8247-9) MODERATE RARE H [facility] Amorphous Hmobgbxg8930-74-55 09:29:00* Test Item Value Reference Range Interpretation Comments Urine Amorphous Sediment (test code = 8246-1) FEW FEW [facility] Hyaline Kovnx7271-08-90 09:29:00* Test Item Value Reference Range Interpretation Comments Urine Hyaline Casts (test code = 62406-4) 0-1 0-1 [facility] Coarse Granular Dmbsg2055-64-28 09:29:00* Test Item Value Reference Range Interpretation Comments Urine Coarse Granular Casts (test code = 10555-7) 1-5 >0 [facility] Vpqda8803-57-97 09:29:00* Test Item Value Reference Range Interpretation Comments Urine Mucus (test code = 8247-9) MODERATE RARE H [facility] Amorphous Oedebayk7149-42-38 09:29:00* Test Item Value Reference Range Interpretation Comments Urine Amorphous Sediment (test code = 8246-1) FEW FEW [facility] Hyaline Wnmcc1880-14-71 09:29:00* Test Item Value Reference Range Interpretation Comments Urine Hyaline Casts (test code = 74459-0) 0-1 0-1 [facility] Coarse Granular Jfumt3387-11-66 09:29:00* Test Item Value Reference Range Interpretation Comments Urine Coarse Granular Casts (test code = 81240-2) 1-5 >0 H [facility] Ywmca3536-66-78 09:29:00* Test Item Value Reference Range Interpretation Comments Urine Mucus (test code = 8247-9) MODERATE RARE H [facility] Amorphous Xcyqjhiq0796-22-44 09:29:00* Test Item Value Reference Range Interpretation Comments Urine Amorphous Sediment (test code = 8246-1) FEW [facility] Hyaline Brguy1594-08-83 09:29:00* Test Item Value Reference Range Interpretation Comments Urine Hyaline Casts (test code = 09252-0) 0-1 0-1 [facility] Coarse Granular Ledoh7075-39-58 09:29:00* Test Item Value Reference Range Interpretation Comments Urine Coarse Granular Casts (test code = 98341-2) 1-5 >0 H [facility] Hhkqy2469-99-63 09:29:00* Test Item Value Reference Range Interpretation Comments Urine Mucus (test code = 8247-9) MODERATE RARE H [facility] Amorphous Tikrkfuk2382-09-91 09:29:00* Test Item Value Reference Range Interpretation Comments Urine Amorphous Sediment (test code = 8246-1) FEW FEW [facility] Hyaline Ozesp9313-61-51 09:29:00* Test Item Value Reference Range Interpretation Comments Urine Hyaline Casts (test code = 20642-2) 0-1 0-1 [facility] Coarse Granular Qlzam6024-57-43 09:29:00* Test Item Value Reference Range Interpretation Comments Urine Coarse Granular Casts (test code = 91394-3) 1-5 >0 H [facility] Rzsne3316-46-51 09:29:00* Test Item Value Reference Range Interpretation Comments Urine Mucus (test code = 8247-9) MODERATE RARE H [facility] Amorphous Bmvunisv9608-27-45 09:29:00* Test Item Value Reference Range Interpretation Comments Urine Amorphous Sediment (test code = 8246-1) FEW FEW [facility] Hyaline Kknft9724-83-27 09:29:00* Test Item Value Reference Range Interpretation Comments Urine Hyaline Casts (test code = 19535-1) 0-1 0-1 [facility] Coarse Granular Qckft2543-12-36 09:29:00* Test Item Value Reference Range Interpretation Comments Urine Coarse Granular Casts (test code = 99666-3) 1-5 >0 H [facility] Pyhso8107-39-22 09:29:00* Test Item Value Reference Range Interpretation Comments Urine Mucus (test code = 8247-9) MODERATE RARE H [facility] Amorphous Jdhhhwwt3319-65-42 09:29:00* Test Item Value Reference Range Interpretation Comments Urine Amorphous Sediment (test code = 8246-1) FEW FEW [facility] Hyaline Ognqd8946-64-78 09:29:00* Test Item Value Reference Range Interpretation Comments Urine Hyaline Casts (test code = 24770-3) 0-1 0-1 [facility] Coarse Granular Pphzf0273-19-29 09:29:00* Test Item Value Reference Range Interpretation Comments Urine Coarse Granular Casts (test code = 65932-9) 1-5 >0 H [facility] Embgh8442-13-48 09:29:00* Test Item Value Reference Range Interpretation Comments Urine Mucus (test code = 8247-9) MODERATE RARE H [facility] Amorphous Xjrqzdmn1040-68-25 09:29:00* Test Item Value Reference Range Interpretation Comments Urine Amorphous Sediment (test code = 8246-1) FEW FEW [facility] Hyaline Ayplt0014-83-78 09:29:00* Test Item Value Reference Range Interpretation Comments Urine Hyaline Casts (test code = 56301-1) 0-1 0-1 [facility] Coarse Granular Vbbfz9997-26-25 09:29:00* Test Item Value Reference Range Interpretation Comments Urine Coarse Granular Casts (test code = 09602-7) 1-5 >0 H [facility] Ciddc7054-01-29 09:29:00* Test Item Value Reference Range Interpretation Comments Urine Mucus (test code = 8247-9) MODERATE RARE H [facility]iscoProthrombin Mwqs8656-96-47 09:25:00* Test Item Value Reference Range Interpretation Comments Prothrombin Time (test code = 5902-2) 12.7 11.9-14.5 [facility]iscoProthromb Time International Ratio 2019-04-15 09:25:00* Test Item Value Reference Range Interpretation Comments Prothromb Time International Ratio (test code = 6301-6) 0.91 Oral Anticoagulant Therapy INR Values:1. Low Intensity Therapy 1.5 - 2.02 . Moderate Intensity Therapy 2.0 - 3.03. High Intensity Therapy(1) 2.5 - 3. 54. High Intensity Therapy(2) 3.0 - 4.05. Panic Value INR > 5.0 [facility] Partial Thromboplast Time 2019-04-15 09:25:00* Test Item Value Reference Range Interpretation Comments Activated Partial Thromboplast Time (test code = 39140-0) 31.4 23.8-35.5 [facility]Prothrombin Gryk1297-92-54 09:25:00* Test Item Value Reference Range Interpretation Comments Prothrombin Time (test code = 5902-2) 12.7 11.9-14.5 [facility]iscoProthromb Time International Ratio 2019-04-15 09:25:00* Test Item Value Reference Range Interpretation Comments Prothromb Time International Ratio (test code = 6301-6) 0.91 Oral Anticoagulant Therapy INR Values:1. Low Intensity Therapy 1.5 - 2.02 . Moderate Intensity Therapy 2.0 - 3.03. High Intensity Therapy(1) 2.5 - 3. 54. High Intensity Therapy(2) 3.0 - 4.05. Panic Value INR > 5.0 [facility] Partial Thromboplast Time 2019-04-15 09:25:00* Test Item Value Reference Range Interpretation Comments Activated Partial Thromboplast Time (test code = 19838-4) 31.4 23.8-35.5 [facility]throm[facility] Qdmi2832-85-13 09:25:00* Test Item Value Reference Range Interpretation Comments Prothrombin Time (test code = 5902-2) 12.7 11.9-14.5 [facility]iscoProth[facility] Time International Ratio 2019-04-15 09:25:00* Test Item Value Reference Range Interpretation Comments Prothromb Time International Ratio (test code = 6301-6) 0.91 Oral Anticoagulant Therapy INR Values:1. Low Intensity Therapy 1.5 - 2.02 . Moderate Intensity Therapy 2.0 - 3.03. High Intensity Therapy(1) 2.5 - 3. 54. High Intensity Therapy(2) 3.0 - 4.05. Panic Value INR > 5.0 [facility] Partial Thromboplast Time 2019-04-15 09:25:00* Test Item Value Reference Range Interpretation Comments Activated Partial Thromboplast Time (test code = 22436-6) 31.4 23.8-35.5 [facility]Prothrombin Ljlt7786-71-23 09:25:00* Test Item Value Reference Range Interpretation Comments Prothrombin Time (test code = 5902-2) 12.7 11.9-14.5 [facility]iscoProthromb Time International Ratio 2019-04-15 09:25:00* Test Item Value Reference Range Interpretation Comments Prothromb Time International Ratio (test code = 6301-6) 0.91 Oral Anticoagulant Therapy INR Values:1. Low Intensity Therapy 1.5 - 2.02 . Moderate Intensity Therapy 2.0 - 3.03. High Intensity Therapy(1) 2.5 - 3. 54. High Intensity Therapy(2) 3.0 - 4.05. Panic Value INR > 5.0 [facility] Partial Thromboplast Time 2019-04-15 09:25:00* Test Item Value Reference Range Interpretation Comments Activated Partial Thromboplast Time (test code = 43101-3) 31.4 23.8-35.5 [facility]Prothrom[facility] Mzlx4065-38-24 09:25:00* Test Item Value Reference Range Interpretation Comments Prothrombin Time (test code = 5902-2) 12.7 11.9-14.5 [facility]Prothromb Time International Ratio 2019-04-15 09:25:00* Test Item Value Reference Range Interpretation Comments Prothromb Time International Ratio (test code = 6301-6) 0.91 Oral Anticoagulant Therapy INR Values:1. Low Intensity Therapy 1.5 - 2.02 . Moderate Intensity Therapy 2.0 - 3.03. High Intensity Therapy(1) 2.5 - 3. 54. High Intensity Therapy(2) 3.0 - 4.05. Panic Value INR > 5.0 [facility] Partial Thromboplast Time 2019-04-15 09:25:00* Test Item Value Reference Range Interpretation Comments Activated Partial Thromboplast Time (test code = 42911-3) 31.4 23.8-35.5 [facility]iscoProthrombin Pury9924-67-59 09:25:00* Test Item Value Reference Range Interpretation Comments Prothrombin Time (test code = 5902-2) 12.7 11.9-14.5 [facility]iscoProthromb Time International Ratio 2019-04-15 09:25:00* Test Item Value Reference Range Interpretation Comments Prothromb Time International Ratio (test code = 6301-6) 0.91 Oral Anticoagulant Therapy INR Values:1. Low Intensity Therapy 1.5 - 2.02 . Moderate Intensity Therapy 2.0 - 3.03. High Intensity Therapy(1) 2.5 - 3. 54. High Intensity Therapy(2) 3.0 - 4.05. Panic Value INR > 5.0 [facility] Partial Thromboplast Time 2019-04-15 09:25:00* Test Item Value Reference Range Interpretation Comments Activated Partial Thromboplast Time (test code = 79896-3) 31.4 23.8-35.5 [facility] Xhkxn6333-24-67 09:19:00* Test Item Value Reference Range Interpretation Comments Urine Color (test code = 5778-6) YELLOW YELLOW [facility] Ymrjitz0098-91-82 09:19:00* Test Item Value Reference Range Interpretation Comments Urine Clarity (test code = 25161-3) SL CLOUDY CLEAR [facility] Specific Lhyibgl7370-88-87 09:19:00 * Test Item Value Reference Range Interpretation Comments Urine Specific [place] (test code = 5811-5) 1.010 1.010-1.02 5 [facility] oS3393-56-25 09:19:00* Test Item Value Reference Range Interpretation Comments Urine pH (test code = 57962-2) 8.5 5-7 [facility] Leukocyte Rcnrupaq5147-90-83 09:19:00* Test Item Value Reference Range Interpretation Comments Urine Leukocyte Esterase (test code = 73679-3) NEGATIVE NEGATIV E [facility] Saqxixv3780-24-87 09:19:00* Test Item Value Reference Range Interpretation Comments Urine Nitrite (test code = 51403-2) NEGATIVE NEGATIVE [facility] Fkxwnvo3901-56-90 09:19:00* Test Item Value Reference Range Interpretation Comments Urine Protein (test code = 42256-0) NEGATIVE NEGATIVE [facility] Glucose (UA)2019-04-15 09:19:00* Test Item Value Reference Range Interpretation Comments Urine Glucose (UA) (test code = 05630-6) NEGATIVE NEGATIVE [facility] Prqnljm3908-23-85 09:19:00* Test Item Value Reference Range Interpretation Comments Urine Ketones (test code = 04339-1) NEGATIVE NEGATIVE [facility] Emwnhgfndyiy5375-45-91 09:19:00* Test Item Value Reference Range Interpretation Comments Urine Urobilinogen (test code = 39416-7) 0.2 0.2-1 [facility] Mfwhpzzby2027-48-83 09:19:00* Test Item Value Reference Range Interpretation Comments Urine Bilirubin (test code = 1977-8) NEGATIVE NEGATIVE [facility] Lofdn0256-96-60 09:19:00* Test Item Value Reference Range Interpretation Comments Urine Blood (test code = 42189-9) NEGATIVE NEGATIVE [facility]iscoWhite Blood Hrncl5190-93-96 09:18:00* Test Item Value Reference Range Interpretation Comments White Blood Count (test code = 6690-2) 8.56 4.8-10.8 [facility]isco[facility] Blood Uuktl0123-27-98 09:18:00* Test Item Value Reference Range Interpretation Comments Red Blood Count (test code = 789-8) 4.49 3.6-5.1 [facility]iscoHemoglobin2019-11-21 09:18:00* Test Item Value Reference Range Interpretation Comments Hemoglobin (test code = 03873-9) 13.8 12.0-16.0 [facility]iscoHematocrit2019-11-21 09:18:00* Test Item Value Reference Range Interpretation Comments Hematocrit (test code = 4544-3) 41.1 34.2-44.1 [facility]iscoMean Corpuscular Qpcbbv4292-18-63 09:18:00* Test Item Value Reference Range Interpretation Comments Mean Corpuscular Volume (test code = 787-2) 91.5 81-99 [facility]iscoMean Corpuscular Yvffyjbfam4271-41-50 09:18:00* Test Item Value Reference Range Interpretation Comments Mean Corpuscular Hemoglobin (test code = 785-6) 30.7 28-32 [facility]iscoMean Corpuscular Hemoglobin Concent 2019-04-15 09:18:00* Test Item Value Reference Range Interpretation Comments Mean Corpuscular Hemoglobin Concent (test code = 786-4) 33.6 31-35 [facility]iscoRed Cell Distribution Bnwsn6654-97-04 09:18:00* Test Item Value Reference Range Interpretation Comments Red Cell Distribution Width (test code = 28710-9) 13.1 11.7 -14.4 [facility]iscoPlatelet Zlwdg6805-74-78 09:18:00* Test Item Value Reference Range Interpretation Comments Platelet Count (test code = 777-3) 248 140-360 [facility]iscoNeutrophils (%) (Auto)2019-04-15 09:18:00 * Test Item Value Reference Range Interpretation Comments Neutrophils (%) (Auto) (test code = 15941-6) 65.8 38.7-80.0 [facility]iscoLymphocytes (%) (Auto)2019-04-15 09:18:00 * Test Item Value Reference Range Interpretation Comments Lymphocytes (%) (Auto) (test code = 736-9) 22.1 18.0-39.1 [facility]iscoMon[facility] (%) (Auto)2019-04-15 09:18:00* Test Item Value Reference Range Interpretation Comments Monocytes (%) (Auto) (test code = 5905-5) 8.9 4.4-11.3 [facility]iscoEosinophils (%) (Auto)2019-04-15 09:18:00 * Test Item Value Reference Range Interpretation Comments Eosinophils (%) (Auto) (test code = 713-8) 2.0 0.0-6.0 [facility] (%) (Auto)2019-04-15 09:18:00* Test Item Value Reference Range Interpretation Comments Basophils (%) (Auto) (test code = 706-2) 0.8 0.0-1.0 [facility]iscoIM GRANULOCYTES %2019-04-15 09:18:00* Test Item Value Reference Range Interpretation Comments IM GRANULOCYTES % (test code = IM GRANULOCYTES %) 0.4 0.0- 1.0 [facility]iscoNeutrophils # (Auto)2019-04-15 09:18:00* Test Item Value Reference Range Interpretation Comments Neutrophils # (Auto) (test code = 751-8) 5.6 2.1-6.9 [facility]iscoLymphocytes # (Auto)2019-04-15 09:18:00* Test Item Value Reference Range Interpretation Comments Lymphocytes # (Auto) (test code = 08503-6) 1.9 1.0-3.2 [facility]Mon[facility] # (Auto)2019-04-15 09:18:00* Test Item Value Reference Range Interpretation Comments Monocytes # (Auto) (test code = 742-7) 0.8 0.2-0.8 [facility]iscoEosinophils # (Auto)2019-04-15 09:18:00* Test Item Value Reference Range Interpretation Comments Eosinophils # (Auto) (test code = 711-2) 0.2 0.0-0.4 [facility] # (Auto)2019-04-15 09:18:00* Test Item Value Reference Range Interpretation Comments Basophils # (Auto) (test code = 704-7) 0.1 0.0-0.1 [facility]iscoAbsolute Immature Granulocyte (auto 2019-04-15 09:18:00* Test Item Value Reference Range Interpretation Comments Absolute Immature Granulocyte (auto (anjali t code = Absolute Immature Granulocyte (auto) 0.03 0-0.1 [facility]iscoWhite Blood Geald4971-11-92 09:18:00* Test Item Value Reference Range Interpretation Comments White Blood Count (test code = 6690-2) 8.56 4.8-10.8 [facility]iscoRed Blood Lxuha8638-93-02 09:18:00* Test Item Value Reference Range Interpretation Comments Red Blood Count (test code = 789-8) 4.49 3.6-5.1 [facility]iscoHemoglobin2019-11-21 09:18:00* Test Item Value Reference Range Interpretation Comments Hemoglobin (test code = 74502-4) 13.8 12.0-16.0 [facility]iscoHematocrit2019-11-21 09:18:00* Test Item Value Reference Range Interpretation Comments Hematocrit (test code = 4544-3) 41.1 34.2-44.1 [facility]iscoMean Corpuscular Nudide6983-16-21 09:18:00* Test Item Value Reference Range Interpretation Comments Mean Corpuscular Volume (test code = 787-2) 91.5 81-99 [facility]Mean Corpuscular Fvtnvlbzey1469-35-67 09:18:00* Test Item Value Reference Range Interpretation Comments Mean Corpuscular Hemoglobin (test code = 785-6) 30.7 28-32 [facility] Hem[facility] Concent 2019-04-15 09:18:00* Test Item Value Reference Range Interpretation Comments Mean Corpuscular Hemoglobin Concent (test code = 786-4) 33.6 31-35 [facility]iscoRed Cell Distribution Shsjd9176-72-56 09:18:00* Test Item Value Reference Range Interpretation Comments Red Cell Distribution Width (test code = 07395-3) 13.1 11.7 -14.4 [facility]iscoPlatelet Adtjm4196-06-33 09:18:00* Test Item Value Reference Range Interpretation Comments Platelet Count (test code = 777-3) 248 140-360 [facility]iscoNeutrophils (%) (Auto)2019-04-15 09:18:00 * Test Item Value Reference Range Interpretation Comments Neutrophils (%) (Auto) (test code = 12141-1) 65.8 38.7-80.0 [facility]iscoLymphocytes (%) (Auto)2019-04-15 09:18:00 * Test Item Value Reference Range Interpretation Comments Lymphocytes (%) (Auto) (test code = 736-9) 22.1 18.0-39.1 [facility]iscoMon[facility] (%) (Auto)2019-04-15 09:18:00* Test Item Value Reference Range Interpretation Comments Monocytes (%) (Auto) (test code = 5905-5) 8.9 4.4-11.3 [facility]iscoEosinophils (%) (Auto)2019-04-15 09:18:00 * Test Item Value Reference Range Interpretation Comments Eosinophils (%) (Auto) (test code = 713-8) 2.0 0.0-6.0 [facility]Bas[facility] (%) (Auto)2019-04-15 09:18:00* Test Item Value Reference Range Interpretation Comments Basophils (%) (Auto) (test code = 706-2) 0.8 0.0-1.0 [facility]iscoIM GRANULOCYTES %2019-04-15 09:18:00* Test Item Value Reference Range Interpretation Comments IM GRANULOCYTES % (test code = IM GRANULOCYTES %) 0.4 0.0- 1.0 [facility]iscoNeutrophils # (Auto)2019-04-15 09:18:00* Test Item Value Reference Range Interpretation Comments Neutrophils # (Auto) (test code = 751-8) 5.6 2.1-6.9 [facility]iscoLymphocytes # (Auto)2019-04-15 09:18:00* Test Item Value Reference Range Interpretation Comments Lymphocytes # (Auto) (test code = 79604-4) 1.9 1.0-3.2 [facility]Mon[facility] # (Auto)2019-04-15 09:18:00* Test Item Value Reference Range Interpretation Comments Monocytes # (Auto) (test code = 742-7) 0.8 0.2-0.8 [facility]iscoEosinophils # (Auto)2019-04-15 09:18:00* Test Item Value Reference Range Interpretation Comments Eosinophils # (Auto) (test code = 711-2) 0.2 0.0-0.4 [facility]Basophils # (Auto)2019-04-15 09:18:00* Test Item Value Reference Range Interpretation Comments Basophils # (Auto) (test code = 704-7) 0.1 0.0-0.1 [facility]iscoAbsolute Immature Granulocyte (auto 2019-04-15 09:18:00* Test Item Value Reference Range Interpretation Comments Absolute Immature Granulocyte (auto (anjali t code = Absolute Immature Granulocyte (auto) 0.03 0-0.1 [facility]iscoWhite Blood Umuxt4804-68-26 09:18:00* Test Item Value Reference Range Interpretation Comments White Blood Count (test code = 6690-2) 8.56 4.8-10.8 [facility]iscoRed Blood Jomrg0492-65-55 09:18:00* Test Item Value Reference Range Interpretation Comments Red Blood Count (test code = 789-8) 4.49 3.6-5.1 [facility]iscoHemoglobin2019-11-21 09:18:00* Test Item Value Reference Range Interpretation Comments Hemoglobin (test code = 24358-3) 13.8 12.0-16.0 [facility]iscoHematocrit2019-11-21 09:18:00* Test Item Value Reference Range Interpretation Comments Hematocrit (test code = 4544-3) 41.1 34.2-44.1 [facility]iscoMean Corpuscular Ghfeao1428-19-05 09:18:00* Test Item Value Reference Range Interpretation Comments Mean Corpuscular Volume (test code = 787-2) 91.5 81-99 [facility]iscoMean Corpuscular Ycesvfasar4248-45-16 09:18:00* Test Item Value Reference Range Interpretation Comments Mean Corpuscular Hemoglobin (test code = 785-6) 30.7 28-32 [facility]iscoMean Corpuscular Hemoglobin Concent 2019-04-15 09:18:00* Test Item Value Reference Range Interpretation Comments Mean Corpuscular Hemoglobin Concent (test code = 786-4) 33.6 31-35 [facility]iscoRed Cell Distribution Cuvks4160-97-69 09:18:00* Test Item Value Reference Range Interpretation Comments Red Cell Distribution Width (test code = 13978-9) 13.1 11.7 -14.4 [facility]iscoPlatelet Bwyho5180-23-73 09:18:00* Test Item Value Reference Range Interpretation Comments Platelet Count (test code = 777-3) 248 140-360 [facility]iscoNeutrophils (%) (Auto)2019-04-15 09:18:00 * Test Item Value Reference Range Interpretation Comments Neutrophils (%) (Auto) (test code = 18850-3) 65.8 38.7-80.0 [facility]ymph[facility] ([facility])2019-04-15 09:18:00 * Test Item Value Reference Range Interpretation Comments Lymphocytes (%) (Auto) (test code = 736-9) 22.1 18.0-39.1 [facility] (%) (Auto)2019-04-15 09:18:00* Test Item Value Reference Range Interpretation Comments Monocytes (%) (Auto) (test code = 5905-5) 8.9 4.4-11.3 [facility]Eosinophils (%) (Auto)2019-04-15 09:18:00 * Test Item Value Reference Range Interpretation Comments Eosinophils (%) (Auto) (test code = 713-8) 2.0 0.0-6.0 [facility] (%) (Auto)2019-04-15 09:18:00* Test Item Value Reference Range Interpretation Comments Basophils (%) (Auto) (test code = 706-2) 0.8 0.0-1.0 [facility]IM [facility]ANULOCYTES %2019-04-15 09:18:00* Test Item Value Reference Range Interpretation Comments IM GRANULOCYTES % (test code = IM GRANULOCYTES %) 0.4 0.0- 1.0 [facility]iscoNeutrophils # (Auto)2019-04-15 09:18:00* Test Item Value Reference Range Interpretation Comments Neutrophils # (Auto) (test code = 751-8) 5.6 2.1-6.9 [facility]Lymphocytes # (Auto)2019-04-15 09:18:00* Test Item Value Reference Range Interpretation Comments Lymphocytes # (Auto) (test code = 23759-3) 1.9 1.0-3.2 [facility]Monocytes # (Auto)2019-04-15 09:18:00* Test Item Value Reference Range Interpretation Comments Monocytes # (Auto) (test code = 742-7) 0.8 0.2-0.8 [facility]Eosinophils # (Auto)2019-04-15 09:18:00* Test Item Value Reference Range Interpretation Comments Eosinophils # (Auto) (test code = 711-2) 0.2 0.0-0.4 [facility]Bas[facility] # (Auto)2019-04-15 09:18:00* Test Item Value Reference Range Interpretation Comments Basophils # (Auto) (test code = 704-7) 0.1 0.0-0.1 [facility]iscoAbsolute Immature Granulocyte (auto 2019-04-15 09:18:00* Test Item Value Reference Range Interpretation Comments Absolute Immature Granulocyte (auto (anjali t code = Absolute Immature Granulocyte (auto) 0.03 0-0.1 [facility]iscoWhite Blood Ylpad8828-26-40 09:18:00* Test Item Value Reference Range Interpretation Comments White Blood Count (test code = 6690-2) 8.56 4.8-10.8 [facility]Red Blood Uflbv1456-02-39 09:18:00* Test Item Value Reference Range Interpretation Comments Red Blood Count (test code = 789-8) 4.49 3.6-5.1 [facility]Hemoglobin2019-11-21 09:18:00* Test Item Value Reference Range Interpretation Comments Hemoglobin (test code = 59979-8) 13.8 12.0-16.0 [facility]iscoHematocrit2019-11-21 09:18:00* Test Item Value Reference Range Interpretation Comments Hematocrit (test code = 4544-3) 41.1 34.2-44.1 [facility]iscoMean Corpuscular Srmelz9853-58-38 09:18:00* Test Item Value Reference Range Interpretation Comments Mean Corpuscular Volume (test code = 787-2) 91.5 81-99 [facility]Mean Corpuscular Iktellmiqk0151-38-79 09:18:00* Test Item Value Reference Range Interpretation Comments Mean Corpuscular Hemoglobin (test code = 785-6) 30.7 28-32 [facility]iscoMean Corpuscular Hemoglobin Concent 2019-04-15 09:18:00* Test Item Value Reference Range Interpretation Comments Mean Corpuscular Hemoglobin Concent (test code = 786-4) 33.6 31-35 [facility]iscoRed Cell Distribution Rruim4549-99-08 09:18:00* Test Item Value Reference Range Interpretation Comments Red Cell Distribution Width (test code = 35632-2) 13.1 11.7 -14.4 [facility]iscoPlatelet Fqzjv8450-70-68 09:18:00* Test Item Value Reference Range Interpretation Comments Platelet Count (test code = 777-3) 248 140-360 [facility]iscoNeutrophils (%) (Auto)2019-04-15 09:18:00 * Test Item Value Reference Range Interpretation Comments Neutrophils (%) (Auto) (test code = 07887-3) 65.8 38.7-80.0 [facility]iscoLymphocytes (%) (Auto)2019-04-15 09:18:00 * Test Item Value Reference Range Interpretation Comments Lymphocytes (%) (Auto) (test code = 736-9) 22.1 18.0-39.1 [facility]Monocytes (%) (Auto)2019-04-15 09:18:00* Test Item Value Reference Range Interpretation Comments Monocytes (%) (Auto) (test code = 5905-5) 8.9 4.4-11.3 [facility]Eosinophils (%) (Auto)2019-04-15 09:18:00 * Test Item Value Reference Range Interpretation Comments Eosinophils (%) (Auto) (test code = 713-8) 2.0 0.0-6.0 [facility]Basophils (%) (Auto)2019-04-15 09:18:00* Test Item Value Reference Range Interpretation Comments Basophils (%) (Auto) (test code = 706-2) 0.8 0.0-1.0 [facility]iscoIM GRANULOCYTES %2019-04-15 09:18:00* Test Item Value Reference Range Interpretation Comments IM GRANULOCYTES % (test code = IM GRANULOCYTES %) 0.4 0.0- 1.0 [facility]iscoNeutrophils # (Auto)2019-04-15 09:18:00* Test Item Value Reference Range Interpretation Comments Neutrophils # (Auto) (test code = 751-8) 5.6 2.1-6.9 [facility]Lymphocytes # (Auto)2019-04-15 09:18:00* Test Item Value Reference Range Interpretation Comments Lymphocytes # (Auto) (test code = 14197-2) 1.9 1.0-3.2 [facility]Monocytes # (Auto)2019-04-15 09:18:00* Test Item Value Reference Range Interpretation Comments Monocytes # (Auto) (test code = 742-7) 0.8 0.2-0.8 [facility]Eosinophils # (Auto)2019-04-15 09:18:00* Test Item Value Reference Range Interpretation Comments Eosinophils # (Auto) (test code = 711-2) 0.2 0.0-0.4 [facility]Bas[facility] # (Auto)2019-04-15 09:18:00* Test Item Value Reference Range Interpretation Comments Basophils # (Auto) (test code = 704-7) 0.1 0.0-0.1 [facility]iscoAbsolute Immature Granulocyte (auto 2019-04-15 09:18:00* Test Item Value Reference Range Interpretation Comments Absolute Immature Granulocyte (auto (anjali t code = Absolute Immature Granulocyte (auto) 0.03 0-0.1 [facility]iscoWhite Blood Tqpxr9976-66-76 09:18:00* Test Item Value Reference Range Interpretation Comments White Blood Count (test code = 6690-2) 8.56 4.8-10.8 [facility]iscoRed Blood Wfiya3962-16-09 09:18:00* Test Item Value Reference Range Interpretation Comments Red Blood Count (test code = 789-8) 4.49 3.6-5.1 [facility]Hemoglobin2019-11-21 09:18:00* Test Item Value Reference Range Interpretation Comments Hemoglobin (test code = 40473-1) 13.8 12.0-16.0 [facility]iscoHematocrit2019-11-21 09:18:00* Test Item Value Reference Range Interpretation Comments Hematocrit (test code = 4544-3) 41.1 34.2-44.1 [facility]iscoMean Corpuscular Cuczxu8453-41-39 09:18:00* Test Item Value Reference Range Interpretation Comments Mean Corpuscular Volume (test code = 787-2) 91.5 81-99 [facility]Mean Corpuscular Sakacegqsz4690-78-84 09:18:00* Test Item Value Reference Range Interpretation Comments Mean Corpuscular Hemoglobin (test code = 785-6) 30.7 28-32 [facility]Mean Corpuscular Hemoglobin Concent 2019-04-15 09:18:00* Test Item Value Reference Range Interpretation Comments Mean Corpuscular Hemoglobin Concent (test code = 786-4) 33.6 31-35 [facility]iscoRed Cell Distribution Bhuun2123-64-74 09:18:00* Test Item Value Reference Range Interpretation Comments Red Cell Distribution Width (test code = 68200-2) 13.1 11.7 -14.4 [facility]iscoPlatelet Jzdme0340-32-10 09:18:00* Test Item Value Reference Range Interpretation Comments Platelet Count (test code = 777-3) 248 140-360 [facility]iscoNeutrophils (%) (Auto)2019-04-15 09:18:00 * Test Item Value Reference Range Interpretation Comments Neutrophils (%) (Auto) (test code = 44607-7) 65.8 38.7-80.0 [facility]iscoLymphocytes (%) (Auto)2019-04-15 09:18:00 * Test Item Value Reference Range Interpretation Comments Lymphocytes (%) (Auto) (test code = 736-9) 22.1 18.0-39.1 [facility]Monocytes (%) (Auto)2019-04-15 09:18:00* Test Item Value Reference Range Interpretation Comments Monocytes (%) (Auto) (test code = 5905-5) 8.9 4.4-11.3 [facility]Eosinophils (%) (Auto)2019-04-15 09:18:00 * Test Item Value Reference Range Interpretation Comments Eosinophils (%) (Auto) (test code = 713-8) 2.0 0.0-6.0 [facility]Basophils (%) (Auto)2019-04-15 09:18:00* Test Item Value Reference Range Interpretation Comments Basophils (%) (Auto) (test code = 706-2) 0.8 0.0-1.0 [facility]iscoIM GRANULOCYTES %2019-04-15 09:18:00* Test Item Value Reference Range Interpretation Comments IM GRANULOCYTES % (test code = IM GRANULOCYTES %) 0.4 0.0- 1.0 [facility]iscoNeutrophils # (Auto)2019-04-15 09:18:00* Test Item Value Reference Range Interpretation Comments Neutrophils # (Auto) (test code = 751-8) 5.6 2.1-6.9 [facility]Lymphocytes # (Auto)2019-04-15 09:18:00* Test Item Value Reference Range Interpretation Comments Lymphocytes # (Auto) (test code = 90575-9) 1.9 1.0-3.2 [facility]Monocytes # (Auto)2019-04-15 09:18:00* Test Item Value Reference Range Interpretation Comments Monocytes # (Auto) (test code = 742-7) 0.8 0.2-0.8 [facility]Eosinophils # (Auto)2019-04-15 09:18:00* Test Item Value Reference Range Interpretation Comments Eosinophils # (Auto) (test code = 711-2) 0.2 0.0-0.4 [facility]Basophils # (Auto)2019-04-15 09:18:00* Test Item Value Reference Range Interpretation Comments Basophils # (Auto) (test code = 704-7) 0.1 0.0-0.1 [facility]iscoAbsolute Immature Granulocyte (auto 2019-04-15 09:18:00* Test Item Value Reference Range Interpretation Comments Absolute Immature Granulocyte (auto (anjali t code = Absolute Immature Granulocyte (auto) 0.03 0-0.1 [facility]iscoAmorphous sediment detection in urine sediment by light tcbcsryorh4434-63-38 08:00:00* Test Item Value Reference Range Interpretation Comments Urine Amorphous Sediment (test code = 8246-1) FEW FEW [facility]iscoHyaline casts detection in urine sediment by light dmqbdlrvsq3959-06-18 08:00:00* Test Item Value Reference Range Interpretation Comments Urine Hyaline Casts (test code = 94969-5) 0-1 0-1 [facility]iscoCoarse granular casts detection in urine sediment by light lsuqohczmw8104-99-06 08:00:00* Test Item Value Reference Range Interpretation Comments Urine Coarse Granular Casts (test code = 93219-6) 1-5 >0 [facility]iscoMucus detection in urine sediment by light lwcdlysvlx5662-08-94 08:00:00* Test Item Value Reference Range Interpretation Comments Urine Mucus (test code = 8247-9) MODERATE RARE [facility] magnesium measurement (mass/volume)2019-04-15 08:00:00* Test Item Value Reference Range Interpretation Comments Magnesium Level (test code = 38228-8) 2.1 1.3-2.1 [facility] or plasma lipase measurement (enzymatic activity/volume)2019-04-15 08:00:00* Test Item Value Reference Range Interpretation Comments Lipase (test code = 3040-3) 75 8-78 [facility] Gpnxyij9224-07-12 11:18:00* Test Item Value Reference Range Interpretation Comments Blood Culture (test code = 92732273) NO GROWTH AFTER 5 DAYS, FINAL REPORT [facility] Hxnilvc1512-25-51 11:18:00* Test Item Value Reference Range Interpretation Comments Blood Culture (test code = 95008913) NO GROWTH AFTER 5 DAYS, FINAL REPORT [facility] Sfizwne6582-24-02 11:18:00* Test Item Value Reference Range Interpretation Comments Blood Culture (test code = 19229276) NO GROWTH AFTER 5 DAYS, FINAL REPORT [facility] Xxhfnqk4661-92-92 11:18:00* Test Item Value Reference Range Interpretation Comments Blood Culture (test code = 34548162) NO GROWTH AFTER 5 DAYS, FINAL REPORT [facility] Givevwh0153-93-93 11:18:00* Test Item Value Reference Range Interpretation Comments Blood Culture (test code = 40631371) NO GROWTH AFTER 5 DAYS, FINAL REPORT [facility] Kxeeedn2351-05-91 12:00:00* Test Item Value Reference Range Interpretation Comments Bedside Glucose (test code = 05561-8) 142 70-120 H Meter ID: [id number] [facility] Glucose 2018-11-13 12:00:00* Test Item Value Reference Range Interpretation Comments Bedside Glucose (test code = 19028-8) 142 70-120 H Meter ID: [id number] [facility] Glucose 2018-11-13 12:00:00* Test Item Value Reference Range Interpretation Comments Bedside Glucose (test code = 84165-7) 142 70-120 H Meter ID: [id number] [facility] Glucose 2018-11-13 12:00:00* Test Item Value Reference Range Interpretation Comments Bedside Glucose (test code = 03023-0) 142 70-120 H Meter ID: [id number] [facility] Center Glucose 2018-11-13 12:00:00* Test Item Value Reference Range Interpretation Comments Bedside Glucose (test code = 75684-9) 142 70-120 H Meter ID: [id number] Regional Medical Center Glucose 2018-11-13 12:00:00* Test Item Value Reference Range Interpretation Comments Bedside Glucose (test code = 79708-3) 142 70-120 H Meter ID: [id number] Regional Medical Center Glucose 2018-11-13 12:00:00* Test Item Value Reference Range Interpretation Comments Bedside Glucose (test code = 01387-7) 142 70-120 H Meter ID: [id number] Regional Medical Center Glucose 2018-11-13 12:00:00* Test Item Value Reference Range Interpretation Comments Bedside Glucose (test code = 06813-3) 142 70-120 H Meter ID: [id number] Health FriscoBlood Culture 2018-11-11 11:18:00* Test Item Value Reference Range Interpretation Comments Blood Culture (test code = 48486265) NO GROWTH AFTER 24 HOURS [facility]iscoDifferential Total Cells Counted 2018-11-11 07:27:00* Test Item Value Reference Range Interpretation Comments Differential Total Cells Counted (test code = Differen tial Total Cells Counted) 100 [facility]iscoNeutrophils % (Manual)2018-11-11 07:27:00 * Test Item Value Reference Range Interpretation Comments Neutrophils % (Manual) (test code = 94505-8) 90 40-74 H [facility]iscoLymphocytes % (Manual)2018-11-11 07:27:00 * Test Item Value Reference Range Interpretation Comments Lymphocytes % (Manual) (test code = 737-7) 7 19-48 L [facility]Monocytes % (Manual)2018-11-11 07:27:00* Test Item Value Reference Range Interpretation Comments Monocytes % (Manual) (test code = 744-3) 3 3.4-9.0 L [facility]iscoPlatelet Prjufysu1727-86-13 07:27:00* Test Item Value Reference Range Interpretation Comments Platelet Estimate (test code = 41162-3) ADEQUATE [facility]iscoPlatelet Morphology Xzekvmt0002-02-08 07:27:00* Test Item Value Reference Range Interpretation Comments Platelet Morphology Comment (test code = 50814-3) NORMAL [facility]iscoRed Cell Morphology Rzwzhdl9332-84-45 07:27:00* Test Item Value Reference Range Interpretation Comments Red Cell Morphology Comment (test code = 6742-1) NORMAL [facility]iscoDifferential Total Cells Counted 2018-11-11 07:27:00* Test Item Value Reference Range Interpretation Comments Differential Total Cells Counted (test code = Differen tial Total Cells Counted) 100 [facility]iscoNeutrophils % (Manual)2018-11-11 07:27:00 * Test Item Value Reference Range Interpretation Comments Neutrophils % (Manual) (test code = 50940-6) 90 40-74 H [facility]iscoLymphocytes % (Manual)2018-11-11 07:27:00 * Test Item Value Reference Range Interpretation Comments Lymphocytes % (Manual) (test code = 737-7) 7 19-48 L [facility]Monocytes % (Manual)2018-11-11 07:27:00* Test Item Value Reference Range Interpretation Comments Monocytes % (Manual) (test code = 744-3) 3 3.4-9.0 L [facility]iscoPlatelet Qctdvnrl5037-99-15 07:27:00* Test Item Value Reference Range Interpretation Comments Platelet Estimate (test code = 28818-4) ADEQUATE [facility]iscoPlatelet Morphology Mtvgcdk4970-89-51 07:27:00* Test Item Value Reference Range Interpretation Comments Platelet Morphology Comment (test code = 97811-7) NORMAL [facility]iscoRed Cell Morphology Iqpghxr2825-49-88 07:27:00* Test Item Value Reference Range Interpretation Comments Red Cell Morphology Comment (test code = 6742-1) NORMAL [facility]iscoDifferential Total Cells Counted 2018-11-11 07:27:00* Test Item Value Reference Range Interpretation Comments Differential Total Cells Counted (test code = Differen tial Total Cells Counted) 100 [facility]iscoNeutrophils % (Manual)2018-11-11 07:27:00 * Test Item Value Reference Range Interpretation Comments Neutrophils % (Manual) (test code = 96980-4) 90 40-74 H [facility]iscoLymphocytes % (Manual)2018-11-11 07:27:00 * Test Item Value Reference Range Interpretation Comments Lymphocytes % (Manual) (test code = 737-7) 7 19-48 L [facility]Monocytes % (Manual)2018-11-11 07:27:00* Test Item Value Reference Range Interpretation Comments Monocytes % (Manual) (test code = 744-3) 3 3.4-9.0 L [facility]iscoPlatelet Iyykqtbu9305-41-26 07:27:00* Test Item Value Reference Range Interpretation Comments Platelet Estimate (test code = 73635-8) ADEQUATE [facility]iscoPlatelet Morphology Tdqvopv4448-36-43 07:27:00* Test Item Value Reference Range Interpretation Comments Platelet Morphology Comment (test code = 26514-8) NORMAL [facility]iscoRed Cell Morphology Cwsnwoa4342-75-28 07:27:00* Test Item Value Reference Range Interpretation Comments Red Cell Morphology Comment (test code = 6742-1) NORMAL [facility]iscoDifferential Total Cells Counted 2018-11-11 07:27:00* Test Item Value Reference Range Interpretation Comments Differential Total Cells Counted (test code = Differen tial Total Cells Counted) 100 [facility]iscoNeutrophils % (Manual)2018-11-11 07:27:00 * Test Item Value Reference Range Interpretation Comments Neutrophils % (Manual) (test code = 65951-6) 90 40-74 H [facility]iscoLymphocytes % (Manual)2018-11-11 07:27:00 * Test Item Value Reference Range Interpretation Comments Lymphocytes % (Manual) (test code = 737-7) 7 19-48 L [facility]Monocytes % (Manual)2018-11-11 07:27:00* Test Item Value Reference Range Interpretation Comments Monocytes % (Manual) (test code = 744-3) 3 3.4-9.0 L [facility]iscoPlatelet Tvzqlrxx3625-74-32 07:27:00* Test Item Value Reference Range Interpretation Comments Platelet Estimate (test code = 90998-6) ADEQUATE [facility]iscoPlatelet Morphology Uiuxuma4688-10-09 07:27:00* Test Item Value Reference Range Interpretation Comments Platelet Morphology Comment (test code = 06529-1) NORMAL [facility]iscoRed Cell Morphology Vsevqlx4380-58-01 07:27:00* Test Item Value Reference Range Interpretation Comments Red Cell Morphology Comment (test code = 6742-1) NORMAL [facility]iscoDifferential Total Cells Counted 2018-11-11 07:27:00* Test Item Value Reference Range Interpretation Comments Differential Total Cells Counted (test code = Differdejuan tial Total Cells Counted) 100 [facility]iscoNeutrophils % (Manual)2018-11-11 07:27:00 * Test Item Value Reference Range Interpretation Comments Neutrophils % (Manual) (test code = 05652-7) 90 40-74 H [facility]iscoLymphocytes % (Manual)2018-11-11 07:27:00 * Test Item Value Reference Range Interpretation Comments Lymphocytes % (Manual) (test code = 737-7) 7 19-48 L [facility]iscoMonocytes % (Manual)2018-11-11 07:27:00* Test Item Value Reference Range Interpretation Comments Monocytes % (Manual) (test code = 744-3) 3 3.4-9.0 L [facility]iscoPlatelet Oqkorckm9642-29-13 07:27:00* Test Item Value Reference Range Interpretation Comments Platelet Estimate (test code = 09721-7) ADEQUATE [facility]iscoPlatelet Morphology Tgaswqt9088-32-11 07:27:00* Test Item Value Reference Range Interpretation Comments Platelet Morphology Comment (test code = 63588-9) NORMAL [facility]iscoRed Cell Morphology Angwmyr5442-21-73 07:27:00* Test Item Value Reference Range Interpretation Comments Red Cell Morphology Comment (test code = 6742-1) NORMAL [facility]iscoDifferential Total Cells Counted 2018-11-11 07:27:00* Test Item Value Reference Range Interpretation Comments Differential Total Cells Counted (test code = Differen tial Total Cells Counted) 100 [facility]iscoNeutrophils % (Manual)2018-11-11 07:27:00 * Test Item Value Reference Range Interpretation Comments Neutrophils % (Manual) (test code = 30464-7) 90 40-74 H [facility]iscoLymphocytes % (Manual)2018-11-11 07:27:00 * Test Item Value Reference Range Interpretation Comments Lymphocytes % (Manual) (test code = 737-7) 7 19-48 L [facility]iscoMonocytes % (Manual)2018-11-11 07:27:00* Test Item Value Reference Range Interpretation Comments Monocytes % (Manual) (test code = 744-3) 3 3.4-9.0 L [facility]iscoPlatelet Roogezfk1860-05-02 07:27:00* Test Item Value Reference Range Interpretation Comments Platelet Estimate (test code = 89131-3) ADEQUATE [facility]iscoPlatelet Morphology Umczgjy6484-09-38 07:27:00* Test Item Value Reference Range Interpretation Comments Platelet Morphology Comment (test code = 37438-3) NORMAL [facility]iscoRed Cell Morphology Jtrpuha5296-68-02 07:27:00* Test Item Value Reference Range Interpretation Comments Red Cell Morphology Comment (test code = 6742-1) NORMAL [facility]iscoDifferential Total Cells Counted 2018-11-11 07:27:00* Test Item Value Reference Range Interpretation Comments Differential Total Cells Counted (test code = Differen tial Total Cells Counted) 100 [facility]iscoNeutrophils % (Manual)2018-11-11 07:27:00 * Test Item Value Reference Range Interpretation Comments Neutrophils % (Manual) (test code = 39147-3) 90 40-74 H [facility]iscoLymphocytes % (Manual)2018-11-11 07:27:00 * Test Item Value Reference Range Interpretation Comments Lymphocytes % (Manual) (test code = 737-7) 7 19-48 L [facility]Monocytes % (Manual)2018-11-11 07:27:00* Test Item Value Reference Range Interpretation Comments Monocytes % (Manual) (test code = 744-3) 3 3.4-9.0 L [facility]iscoPlatelet Zzcfqtsg2006-41-88 07:27:00* Test Item Value Reference Range Interpretation Comments Platelet Estimate (test code = 60569-3) ADEQUATE [facility]iscoPlatelet Morphology Sjhgrrw4200-64-41 07:27:00* Test Item Value Reference Range Interpretation Comments Platelet Morphology Comment (test code = 61046-3) NORMAL [facility]iscoRed Cell Morphology Hezsixj8643-54-30 07:27:00* Test Item Value Reference Range Interpretation Comments Red Cell Morphology Comment (test code = 6742-1) NORMAL [facility]iscoDifferential Total Cells Counted 2018-11-11 07:27:00* Test Item Value Reference Range Interpretation Comments Differential Total Cells Counted (test code = Julianna tial Total Cells Counted) 100 [facility]iscoNeutrophils % (Manual)2018-11-11 07:27:00 * Test Item Value Reference Range Interpretation Comments Neutrophils % (Manual) (test code = 22932-6) 90 40-74 H [facility]iscoLymphocytes % (Manual)2018-11-11 07:27:00 * Test Item Value Reference Range Interpretation Comments Lymphocytes % (Manual) (test code = 737-7) 7 19-48 L [facility]iscoMonocytes % (Manual)2018-11-11 07:27:00* Test Item Value Reference Range Interpretation Comments Monocytes % (Manual) (test code = 744-3) 3 3.4-9.0 L [facility]iscoPlatelet Ifqxunxm8513-64-81 07:27:00* Test Item Value Reference Range Interpretation Comments Platelet Estimate (test code = 04334-7) ADEQUATE [facility]iscoPlatelet Morphology Dixfhoz3548-59-49 07:27:00* Test Item Value Reference Range Interpretation Comments Platelet Morphology Comment (test code = 62053-1) NORMAL [facility]iscoRed Cell Morphology Nxtdwip1381-82-18 07:27:00* Test Item Value Reference Range Interpretation Comments Red Cell Morphology Comment (test code = 6742-1) NORMAL [facility]iscoDifferential Total Cells Counted 2018-11-11 07:27:00* Test Item Value Reference Range Interpretation Comments Differential Total Cells Counted (test code = Differdejuan tial Total Cells Counted) 100 [facility]iscoNeutrophils % (Manual)2018-11-11 07:27:00 * Test Item Value Reference Range Interpretation Comments Neutrophils % (Manual) (test code = 27085-0) 90 40-74 H [facility]iscoLymphocytes % (Manual)2018-11-11 07:27:00 * Test Item Value Reference Range Interpretation Comments Lymphocytes % (Manual) (test code = 737-7) 7 19-48 L [facility]iscoMonocytes % (Manual)2018-11-11 07:27:00* Test Item Value Reference Range Interpretation Comments Monocytes % (Manual) (test code = 744-3) 3 3.4-9.0 L [facility]iscoPlatelet Uosmmpap1954-98-94 07:27:00* Test Item Value Reference Range Interpretation Comments Platelet Estimate (test code = 63670-5) ADEQUATE [facility]iscoPlatelet Morphology Rvyzblq3771-14-45 07:27:00* Test Item Value Reference Range Interpretation Comments Platelet Morphology Comment (test code = 31483-7) NORMAL [facility]iscoRed Cell Morphology Vbuange3299-50-72 07:27:00* Test Item Value Reference Range Interpretation Comments Red Cell Morphology Comment (test code = 6742-1) [facility] Mbevt5414-06-57 06:22:00* Test Item Value Reference Range Interpretation Comments Sodium Level (test code = 2951-2) 139 136-145 [facility]iscoPotassium Gzmke2885-19-10 06:22:00* Test Item Value Reference Range Interpretation Comments Potassium Level (test code = 2823-3) 4.1 3.5-5.1 [facility]iscoChloride Qotnz9066-81-36 06:22:00* Test Item Value Reference Range Interpretation Comments Chloride Level (test code = 2075-0) 112 98-107 H [facility]iscoCarbon Dioxide Xnnok8121-97-77 06:22:00* Test Item Value Reference Range Interpretation Comments Carbon Dioxide Level (test code = 2028-9) 21 22-29 L [facility]iscoAnion Foi0423-75-81 06:22:00* Test Item Value Reference Range Interpretation Comments Anion Gap (test code = 17729-3) 10.1 8-16 [facility]iscoBlood Urea Tybeesuy7713-84-69 06:22:00* Test Item Value Reference Range Interpretation Comments Blood Urea Nitrogen (test code = 3094-0) 15 7-26 [facility]iscoCreatinine2019-06-19 06:22:00* Test Item Value Reference Range Interpretation Comments Creatinine (test code = 2160-0) 0.94 0.57-1.11 [facility]iscoBUN/Creatinine Mkmms3158-49-76 06:22:00* Test Item Value Reference Range Interpretation Comments BUN/Creatinine Ratio (test code = 3097-3) 16 6-25 [facility]iscoEstimat Glomerular Filtration Rate 2018-11-11 06:22:00* Test Item Value Reference Range Interpretation Comments Estimat Glomerular Filtration Rate (test code = 292488352) 57 >60 L Ranges were taken from the National Kidney Disease Education Program and the [facility] literature.Reference ranges:60 or greater: Dctecy25-93 ( for 3 consecutive months): Chronic kidney disease 15 or less: Kidney failureTexas Health FriscoGlucose Atskd7432-44-89 06:22:00* Test Item Value Reference Range Interpretation Comments Glucose Level (test code = ZEL3005) 118 74-118 [facility]iscoCalcium Ogduu8352-75-59 06:22:00* Test Item Value Reference Range Interpretation Comments Calcium Level (test code = 63386-9) 7.7 8.4-10.2 L [facility]iscoTotal Zmhmvqxjl0237-72-62 06:22:00* Test Item Value Reference Range Interpretation Comments Total Bilirubin (test code = 1975-2) 0.4 0.2-1.2 [facility] FriscoAspartate Amino Transf (AST/SGOT) 2018-11-11 06:22:00* Test Item Value Reference Range Interpretation Comments Aspartate Amino Transf (AST/SGOT) (test code = Aspartate Amino Transf (AST/SGOT)) 25 5-34 [facility]iscoAlanine Aminotransferase (ALT/SGPT) 2018-11-11 06:22:00* Test Item Value Reference Range Interpretation Comments Alanine Aminotransferase (ALT/SGPT) (test code = 1742-6) 23 0-55 [facility]iscoTotal Dnuavyd8135-87-21 06:22:00* Test Item Value Reference Range Interpretation Comments Total Protein (test code = 2885-2) 5.3 6.5-8.1 L [facility]iscoAlbumin2019-06-19 06:22:00* Test Item Value Reference Range Interpretation Comments Albumin (test code = 1751-7) 2.7 3.5-5.0 L [facility]iscoGlobulin2019-06-19 06:22:00* Test Item Value Reference Range Interpretation Comments Globulin (test code = 86280-8) 2.6 2.3-3.5 [facility]iscoAlbumin/Globulin Jrbpx6657-33-72 06:22:00 * Test Item Value Reference Range Interpretation Comments Albumin/Globulin Ratio (test code = 1759-0) 1.0 0.8-2.0 [facility]iscoAlkaline Jkwpqtanwtg9321-13-44 06:22:00* Test Item Value Reference Range Interpretation Comments Alkaline Phosphatase (test code = 6768-6) 61 40-150 [facility]iscoAmylase Dyeud3260-70-26 06:22:00* Test Item Value Reference Range Interpretation Comments Amylase Level (test code = 1798-8) 52 25-125 [facility]iscoLipase2019-06-19 06:22:00* Test Item Value Reference Range Interpretation Comments Lipase (test code = 3040-3) 39 8-78 [facility]iscoAmylase Qvpfv2073-41-96 06:22:00* Test Item Value Reference Range Interpretation Comments Amylase Level (test code = 1798-8) 52 25-125 [facility]iscoAmylase Nfhqv0158-48-88 06:22:00* Test Item Value Reference Range Interpretation Comments Amylase Level (test code = 1798-8) 52 25-125 [facility]iscoAmylase Bukai6472-84-37 06:22:00* Test Item Value Reference Range Interpretation Comments Amylase Level (test code = 1798-8) 52 25-125 [facility]iscoAmylase Rfktr9288-15-00 06:22:00* Test Item Value Reference Range Interpretation Comments Amylase Level (test code = 1798-8) 52 -125 [facility]iscoAmylase Qdsrx9889-92-00 06:22:00* Test Item Value Reference Range Interpretation Comments Amylase Level (test code = 1798-8) 52 25-125 [facility]iscoAmylase Rdksd9633-15-45 06:22:00* Test Item Value Reference Range Interpretation Comments Amylase Level (test code = 1798-8) 52 -125 [facility]iscoAmylase Twkis9758-40-56 06:22:00* Test Item Value Reference Range Interpretation Comments Amylase Level (test code = 1798-8) 52 25-125 [facility]iscoAmylase Jyvag5312-98-50 06:22:00* Test Item Value Reference Range Interpretation Comments Amylase Level (test code = 1798-8) 52 25-125 [facility]iscoWhite Blood Ktesu3203-54-06 06:17:00* Test Item Value Reference Range Interpretation Comments White Blood Count (test code = 6690-2) 9.38 4.8-10.8 [facility]iscoRed Blood Abdyb0043-76-75 06:17:00* Test Item Value Reference Range Interpretation Comments Red Blood Count (test code = 789-8) 3.27 3.6-5.1 L [facility]iscoHemoglobin2019-06-19 06:17:00* Test Item Value Reference Range Interpretation Comments Hemoglobin (test code = 14012-5) 10.0 12.0-16.0 L [facility]iscoHematocrit2019-06-19 06:17:00* Test Item Value Reference Range Interpretation Comments Hematocrit (test code = 4544-3) 31.0 34.2-44.1 L [facility]iscoMean Corpuscular Pxhrvr6869-42-40 06:17:00* Test Item Value Reference Range Interpretation Comments Mean Corpuscular Volume (test code = 787-2) 94.8 81-99 [facility]iscoMean Corpuscular Huikiccylm8095-22-56 06:17:00* Test Item Value Reference Range Interpretation Comments Mean Corpuscular Hemoglobin (test code = 785-6) 30.6 28-32 [facility]iscoMean Corpuscular Hemoglobin Concent 2018-11-11 06:17:00* Test Item Value Reference Range Interpretation Comments Mean Corpuscular Hemoglobin Concent (test code = 786-4) 32.3 31-35 [facility]iscoRed Cell Distribution Kjjqf5147-80-25 06:17:00* Test Item Value Reference Range Interpretation Comments Red Cell Distribution Width (test code = 11735-2) 13.3 11.7 -14.4 [facility]iscoPlatelet Qxxac4192-63-25 06:17:00* Test Item Value Reference Range Interpretation Comments Platelet Count (test code = 777-3) 175 140-360 [facility]iscoNeutrophils (%) (Auto)2018-11-11 06:17:00 * Test Item Value Reference Range Interpretation Comments Neutrophils (%) (Auto) (test code = 24327-9) 86.2 38.7-80.0 H [facility]iscoLymphocytes (%) (Auto)2018-11-11 06:17:00 * Test Item Value Reference Range Interpretation Comments Lymphocytes (%) (Auto) (test code = 736-9) 6.2 18.0-39.1 L [facility]iscoMonocytes (%) (Auto)2018-11-11 06:17:00* Test Item Value Reference Range Interpretation Comments Monocytes (%) (Auto) (test code = 5905-5) 6.5 4.4-11.3 [facility]iscoEosinophils (%) (Auto)2018-11-11 06:17:00 * Test Item Value Reference Range Interpretation Comments Eosinophils (%) (Auto) (test code = 713-8) 0.0 0.0-6.0 [facility]iscoBasophils (%) (Auto)2018-11-11 06:17:00* Test Item Value Reference Range Interpretation Comments Basophils (%) (Auto) (test code = 706-2) 0.1 0.0-1.0 [facility]iscoIM GRANULOCYTES %2018-11-11 06:17:00* Test Item Value Reference Range Interpretation Comments IM GRANULOCYTES % (test code = IM GRANULOCYTES %) 1.0 0.0- 1.0 [facility]iscoNeutrophils # (Auto)2018-11-11 06:17:00* Test Item Value Reference Range Interpretation Comments Neutrophils # (Auto) (test code = 751-8) 8.1 2.1-6.9 H [facility]iscoLymphocytes # (Auto)2018-11-11 06:17:00* Test Item Value Reference Range Interpretation Comments Lymphocytes # (Auto) (test code = 00420-7) 0.6 1.0-3.2 L [facility]iscoMonocytes # (Auto)2018-11-11 06:17:00* Test Item Value Reference Range Interpretation Comments Monocytes # (Auto) (test code = 742-7) 0.6 0.2-0.8 [facility]iscoEosinophils # (Auto)2018-11-11 06:17:00* Test Item Value Reference Range Interpretation Comments Eosinophils # (Auto) (test code = 711-2) 0.0 0.0-0.4 [facility]iscoBasophils # (Auto)2018-11-11 06:17:00* Test Item Value Reference Range Interpretation Comments Basophils # (Auto) (test code = 704-7) 0.0 0.0-0.1 [facility]iscoAbsolute Immature Granulocyte (auto 2018-11-11 06:17:00* Test Item Value Reference Range Interpretation Comments Absolute Immature Granulocyte (auto (anjali t code = Absolute Immature Granulocyte (auto) 0.09 0-0.1 [facility]iscoInfluenza Virus Types A,B Antigen 2018-11-10 05:38:00* Test Item Value Reference Range Interpretation Comments Influenza Virus Types A,B Antigen (test code = 59189-0) NEGATIVE NEGATIVE [facility]iscoInfluenza Virus Types A,B Antigen 2018-11-10 05:38:00* Test Item Value Reference Range Interpretation Comments Influenza Virus Types A,B Antigen (test code = 14427-9) NEGATIVE NEGATIVE [facility]iscoInfluenza Virus Types A,B Antigen 2018-11-10 05:38:00* Test Item Value Reference Range Interpretation Comments Influenza Virus Types A,B Antigen (test code = 86628-6) NEGATIVE NEGATIVE [facility]iscoInfluenza Virus Types A,B Antigen 2018-11-10 05:38:00* Test Item Value Reference Range Interpretation Comments Influenza Virus Types A,B Antigen (test code = 47189-8) NEGATIVE NEGATIVE [facility]iscoInfluenza Virus Types A,B Antigen 2018-11-10 05:38:00* Test Item Value Reference Range Interpretation Comments Influenza Virus Types A,B Antigen (test code = 05443-5) NEGATIVE NEGATIVE [facility]iscoInfluenza Virus Types A,B Antigen 2018-11-10 05:38:00* Test Item Value Reference Range Interpretation Comments Influenza Virus Types A,B Antigen (test code = 00976-6) NEGATIVE NEGATIVE [facility]iscoInfluenza Virus Types A,B Antigen 2018-11-10 05:38:00* Test Item Value Reference Range Interpretation Comments Influenza Virus Types A,B Antigen (test code = 31230-3) NEGATIVE NEGATIVE [facility]iscoInfluenza Virus Types A,B Antigen 2018-11-10 05:38:00* Test Item Value Reference Range Interpretation Comments Influenza Virus Types A,B Antigen (test code = 78681-5) NEGATIVE NEGATIVE [facility]iscoInfluenza Virus Types A,B Antigen 2018-11-10 05:38:00* Test Item Value Reference Range Interpretation Comments Influenza Virus Types A,B Antigen (test code = 02818-6) NEGATIVE NEGATIVE [facility]iscoCT ABDOMEN/PELVIS [id number] 05:23:00 [place] [address] Patient Name: YUE RAMSEY MR #: [id number] : 1935 Age/Sex: 83/F Req #: [id number] Adm Physician: Ordered by: FELICITY ALONSO MD Report #: [id number] Location: ER Room/Bed: Procedure: 0618 -0004 CT/CT ABDOMEN/PELVIS WO Exam Date: 11/10/18 Ex am Time: 042 REPORT STATUS: Signed EXAM: CT Abdomen and Pelvis WITHOUT contrast INDICATION: ABD PA IN, N/V/D [id number] Y COMPARISON: CT dated 05/21/2018 TECHNIQU E: Abdomen and pelvis were scanned utilizing a multidetector helical scanner f rom the lung base to the pubic symphysis without administration of IV contrast . Absence of intravenous contrast decreases sensitivity for detection of focal lesions and vascular pathology. Coronal and sagittal reformations were obtain ed. Routine protocol was performed. IV CONTRAST: None ORAL CONTRA ST: None. COMPLICATIONS: None RADIATION DOSE: Total DLP: 354.83 mGy*cm Estimated effective dose: (DLP x 0.015 x size factor) mSv CTDIvol has been reviewed. It is below the limits set by the Radiati on Protocol Committee (RPC). FINDINGS: LINES and TUBES: None. L OWER THORAX: Unchanged 4 mm subpleural right middle lobe nodule. Mild right b asilar dependent atelectasis. HEPATOBILIARY: Hepatomegaly. Otherwise, unen hanced liver is unremarkable. No biliary ductal dilation. GALLBLADDER: N o radio-opaque stones or sludge. No wall thickening. SPLEEN: No splenomega ly. PANCREAS: No focal masses or ductal dilatation. ADRENALS: Uncha nged 1.4 cm right adnexal nodule, likely an adenoma. No left adrenal nodule. KIDNEYS/URETERS: No hydronephrosis. Again seen multiple bilateral renal cysts, the largest measuring 4.8 cm on the right side. Small left renal hypod ense lesions are probably hemorrhagic cysts. No stones. GI TRACT: No abno rmal distention, wall thickening, or evidence of bowel obstruction. Colonic d iverticulosis without evidence of diverticulitis. Appendix is not visualized. Unchanged moderate size hiatal hernia. PELVIC ORGANS/BLADDER: Bladder is c ollapsed, limiting evaluation. Hysterectomy. LYMPH NODES: No lymphadenopath y. VESSELS: Limited evaluation without intravenous contrast. Moderate aorto iliac atherosclerotic disease. PERITONEUM / RETROPERITONEUM: No free air or fluid. BONES: Abdominal CT dated changes of lumbar spine. Again seen sca ttered sclerotic foci, likely bone islands. SOFT TISSUES: Bilateral subcu taneous buttock injection granulomas. IMPRESSION: 1. No def inite evidence of acute inflammatory process in the abdomen/pelvis, considerin g limitations of unenhanced study. 2. Several bilateral renal cysts, some com plex. These can be further evaluated with renal ultrasound. 3. Unchanged mo derate size hiatal hernia. 4. Colonic diverticulosis without evidence of dive rticulitis. 5. Hepatomegaly. Signed by: Dr. Immanuel Briscoe MD on 11/11/19 5:37 AM Dictated By: IMMANUEL BRISCOE MD 6 Transcribed By: GELY on 11/10/18536 [employer] NET Y TO: FELICITY ALONSO MD CHEST SINGLE (PORTABLE)2018-11-10 05:21:00 [facility] [address] [address] Patient Name: YUE RAMSEY MR #: [id number] : 1935 Age/Sex: 83/F Req #: [id number] Adm Physician: Ordered by: FELICITY ALONSO MD Report #: [id number] Location: ER Room/Bed: Procedure: 0618 -0013 DX/CHEST SINGLE (PORTABLE) Exam Date: 11/10/18 Exam Time: 424 REPORT STATUS: Sig leeroy EXAMINATION: CHEST SINGLE (PORTABLE) INDICATION: WEAKN ESS [id number] Y COMPARISON: 03/13/2017 FINDINGS: A P view TUBES and LINES: None. LUNGS: Lungs are well inflated. There is no evidence of pneumonia or pulmonary edema. PLEURA: No ple ural effusion or pneumothorax. HEART AND MEDIASTINUM: The cardiomediastina l silhouette is unremarkable. BONES AND SOFT TISSUES: No acute osseous lesion. Soft tissues are unremarkable. UPPER ABDOMEN: No free air under the diaphragm. IMPRESSION: No acute thoracic abnormality. S igned by: Dr. Immanuel Briscoe MD on 11/10/2018 5:23 AM Dictated By: IMMANUEL TRIPP MD 2 Transcri bed By: GELY on 11/10/18522 COPY TO: FELICITY ALONSO MD Urine [id number] 05:00:00* Test Item Value Reference Range Interpretation Comments Urine WBC (test code = 5821-4) 6-10 0-[address] [facility] [id number] 05:00:00* Test Item Value Reference Range Interpretation Comments Urine RBC (test code = 01188-9) 6-10 0-5 H [facility] Voyxzyba3716-77-44 05:00:00* Test Item Value Reference Range Interpretation Comments Urine Bacteria (test code = 33445-9) MODERATE NONE H [facility]iscoUrine Epithelial Hbnwr3843-83-94 05:00:00 * Test Item Value Reference Range Interpretation Comments Urine Epithelial Cells (test code = 64390-6) FEW NONE [facility]iscoU[facility] Mykws6182-68-19 05:00:00* Test Item Value Reference Range Interpretation Comments Urine Mucus (test code = 8247-9) MODERATE RARE H [facility]iscoUrine Cruts4580-24-56 04:47:00* Test Item Value Reference Range Interpretation Comments Urine Color (test code = 5778-6) YELLOW YELLOW [facility]iscoU[facility] Girvfkx3754-93-10 04:47:00* Test Item Value Reference Range Interpretation Comments Urine Clarity (test code = 10580-9) CLEAR CLEAR [facility]iscoU[facility] Specific Htfwmwc0567-57-02 04:47:00 * Test Item Value Reference Range Interpretation Comments Urine Specific [place] (test code = 5811-5) 1.015 1.010-1.02 5 [facility]iscoU[facility] yU3779-94-94 04:47:00* Test Item Value Reference Range Interpretation Comments Urine pH (test code = 52980-7) 6 5-7 [facility] Leukocyte Syvnlgfi3605-90-06 04:47:00* Test Item Value Reference Range Interpretation Comments Urine Leukocyte Esterase (test code = 79957-1) NEGATIVE NEGATIV E [facility]iscoU[facility] Lvlxeof4673-97-38 04:47:00* Test Item Value Reference Range Interpretation Comments Urine Nitrite (test code = 10218-8) NEGATIVE NEGATIVE [facility]iscoU[facility] Oavdhpq4658-89-32 04:47:00* Test Item Value Reference Range Interpretation Comments Urine Protein (test code = 93241-4) TRACE NEGATIVE H [facility]iscoUrine Glucose (UA)2018-11-10 04:47:00* Test Item Value Reference Range Interpretation Comments Urine Glucose (UA) (test code = 53508-4) NEGATIVE NEGATIVE [facility]iscoU[facility] Arhnxzv9172-35-97 04:47:00* Test Item Value Reference Range Interpretation Comments Urine Ketones (test code = 63094-3) NEGATIVE NEGATIVE [facility]iscoU[facility] Cogvifpayhmb2156-24-08 04:47:00* Test Item Value Reference Range Interpretation Comments Urine Urobilinogen (test code = 53440-8) 0.2 0.2-1 [facility] Pyybvfqzt7320-37-36 04:47:00* Test Item Value Reference Range Interpretation Comments Urine Bilirubin (test code = 1977-8) NEGATIVE NEGATIVE [facility]iscoU[facility] Zpniu5026-87-44 04:47:00* Test Item Value Reference Range Interpretation Comments Urine Blood (test code = 76551-7) NEGATIVE NEGATIVE [facility]iscoCreatine Kinase BS1237-74-37 04:25:00* Test Item Value Reference Range Interpretation Comments Creatine Kinase MB (test code = 98949-1) 1.70 0-5.0 [facility]iscoTroponin Q1670-15-23 04:25:00* Test Item Value Reference Range Interpretation Comments Troponin I (test code = AUD3022) < 0.001 0-0.300 [facility]iscoCreatine Ynxdji2941-70-27 04:01:00* Test Item Value Reference Range Interpretation Comments Creatine Kinase (test code = 2157-6) 124 29-168 [facility]iscoCT ABDOMEN/PELVIS [id number] 19:51:00 [facility] [address] [address] Patient Name: YUE RAMSEY MR #: [id number] : 1935 Age/Sex: 82/F Req #: [id number] Adm Physician: Ordered by: BHARATHI JOHNSTON FLEECE TIER Report #: [id number] Location: ER Room/Bed: Procedure: [id number] C T/CT ABDOMEN/PELVIS WO Exam Date: 05/21/18 Exam Time : 1818 REPORT STATUS: Signed EXA M: CT Abdomen and Pelvis WITHOUT contrast INDICATION: Vomiting ABD PAIN tv rbo per material flow engineer cacace wt 05/21/18@1750 COMPARISON: Abdominal ultrasound 03/08/2017 . MRCP 01/13/2017. CT abdomen and pelvis 01/12/2017. TECHNIQUE: Abdomen and pe lvis were scanned utilizing a multidetector helical scanner from the lung base to the pubic symphysis without administration of IV contrast. Absence of intr avenous contrast decreases sensitivity for detection of focal lesions and vasc ular pathology. Coronal and sagittal reformations were obtained. Routine asad col was performed. IV CONTRAST: None ORAL CONTRAST: Water COMPLICATIONS: None RADIATION DOSE: Total DLP: 403.24 mGy* cm Estimated effective dose: (DLP x 0.015 x size factor) mSv CTDIv ol has been reviewed. It is below the limits set by the Radiation Protocol Com mittee (RPC). FINDINGS: LINES and TUBES: None. LOWER THORAX: 4.1 mm nodule in the right lower lobe (series 2, image 3). HEPATOBILIARY: No focal hepatic lesions. No biliary ductal dilation. GALLBLADDER: No rad io-opaque stones or sludge. No wall thickening. SPLEEN: No splenomegaly. PANCREAS: No focal masses or ductal dilatation. ADRENALS: No adrenal nodules KIDNEYS/URETERS: No hydronephrosis. 4.7 cm cystic lesion in t he superior pole of the right kidney. 4.8 cm simple cyst in the superior pole/ interpolar region of the right kidney. 2.4 cm cyst with mild peripheral calcif ication in the interpolar region of the right kidney. 1.0 cm hyperdense lesion in the superior pole left kidney, likely hemorrhagic cyst. 2.4 cm cystic lesi on in the inferior pole of the left kidney. No stones. GI TRACT: Moder ate sliding hiatal hernia. Small bowel measures 2.5 cm without evidence of obs truction. No abnormal distention, wall thickening, or evidence of bowel obstru ction. There are diverticula within the colon without evidence of diverticul itis. Appendix is not visualized.. PELVIC ORGANS/BLADDER: Uterus is surg ically absent. Both ovaries are not visualized. LYMPH NODES: No lymphaden opathy. VESSELS: There is severe atherosclerotic disease in the aorta and m ajor arterial branches. Left renal artery stent. PERITONEUM / RETROPERITO NEUM: No free air or fluid. BONES: Unremarkable. SOFT TISSUES: Posteri or gluteal dystrophic calcifications. IMPRESSION: 1. Modera te sliding hiatal hernia. 2. Severe vascular calcifications. 3. Multiple r enal cystic lesions, likely simple cysts. Signed by: Dr. Ryan Odonnell M.D. on 07/22/2017 8:02 PM Dictated By: RYAN ODONNELL MD 01 Transcribed By: GELY on 05/21/182001 COPY TO: BHARATIH JOHNSTON NP Differential Total Cells Agtvzkx3271-00-28 15:22:00* Test Item Value Reference Range Interpretation Comments Differential Total Cells Counted (test code = Differdejuan tial Total Cells Counted) 100 [facility]iscoNeutrophils % (Manual)2018-05-21 15:22:00 * Test Item Value Reference Range Interpretation Comments Neutrophils % (Manual) (test code = 70594-4) 83 40-74 H [facility]iscoLymphocytes % (Manual)2018-05-21 15:22:00 * Test Item Value Reference Range Interpretation Comments Lymphocytes % (Manual) (test code = 737-7) 9 19-48 L [facility]iscoMonocytes % (Manual)2018-05-21 15:22:00* Test Item Value Reference Range Interpretation Comments Monocytes % (Manual) (test code = 744-3) 3 3.4-9.0 L [facility]iscoEosinophils % (Manual)2018-05-21 15:22:00 * Test Item Value Reference Range Interpretation Comments Eosinophils % (Manual) (test code = 714-6) 1 0-7 [facility]iscoReactive Xumavydlxrp8978-69-24 15:22:00* Test Item Value Reference Range Interpretation Comments Reactive Lymphocytes (test code = 60124-3) 4 [facility]iscoPlatelet Exzqoxuu4099-58-44 15:22:00* Test Item Value Reference Range Interpretation Comments Platelet Estimate (test code = 57692-5) ADEQUATE [facility]iscoRed Cell Morphology Tlnmqxx9622-90-68 15:22:00* Test Item Value Reference Range Interpretation Comments Red Cell Morphology Comment (test code = 6742-1) NORMAL [facility]iscoEosinophils % (Manual)2018-05-21 15:22:00 * Test Item Value Reference Range Interpretation Comments Eosinophils % (Manual) (test code = 714-6) 1 0-7 [facility]iscoReactive Wvjaujutxoz5260-47-06 15:22:00* Test Item Value Reference Range Interpretation Comments Reactive Lymphocytes (test code = 52544-0) 4 [facility]iscoUrine Fqjdg0680-43-00 14:51:00* Test Item Value Reference Range Interpretation Comments Urine Color (test code = 5778-6) YELLOW YELLOW [facility]iscoUrine Exwyvys7259-45-15 14:51:00* Test Item Value Reference Range Interpretation Comments Urine Clarity (test code = 94796-4) CLOUDY CLEAR H [facility]iscoUrine Specific Cvrjymv4793-98-77 14:51:00 * Test Item Value Reference Range Interpretation Comments Urine Specific [place] (test code = 5811-5) 1.025 1.010-1.02 5 [facility]iscoUrine kL1535-20-20 14:51:00* Test Item Value Reference Range Interpretation Comments Urine pH (test code = 33925-9) 5 5-7 [facility]iscoUrine Leukocyte Hwjufavx6092-24-47 14:51:00* Test Item Value Reference Range Interpretation Comments Urine Leukocyte Esterase (test code = 5799-2) 1+ NEGATIVE H [facility]iscoUrine Wkldyhr3815-70-79 14:51:00* Test Item Value Reference Range Interpretation Comments Urine Nitrite (test code = 57992-2) NEGATIVE NEGATIVE [facility] Numwmqa6511-79-06 14:51:00* Test Item Value Reference Range Interpretation Comments Urine Protein (test code = 5804-0) 1+ [facility]GATIVE [facility] Glucose (UA)2018-05-21 14:51:00* Test Item Value Reference Range Interpretation Comments Urine Glucose (UA) (test code = 2349-9) NEGATIVE NEGATIVE [facility] Yjxhszm7384-46-96 14:51:00* Test Item Value Reference Range Interpretation Comments Urine Ketones (test code = 74299-3) TRACE NEGATIVE H [facility] Pmgtbrkczghh0967-51-04 14:51:00* Test Item Value Reference Range Interpretation Comments Urine Urobilinogen (test code = 76241-9) 0.2 0.2-1 [facility] Qhgpftdcv3179-69-13 14:51:00* Test Item Value Reference Range Interpretation Comments Urine Bilirubin (test code = 1978-6) NEGATIVE NEGATIVE [facility] Bbvbq2001-14-74 14:51:00* Test Item Value Reference Range Interpretation Comments Urine Blood (test code = 68421-7) NEGATIVE [facility]GATIVE [facility] RYX3876-67-92 14:51:00* Test Item Value Reference Range Interpretation Comments Urine WBC (test code = 5821-4) 6-10 0-5 [facility] SDS5535-52-26 14:51:00* Test Item Value Reference Range Interpretation Comments Urine RBC (test code = 97474-2) 6-10 0-5 [facility] Kittiabm9032-96-76 14:51:00* Test Item Value Reference Range Interpretation Comments Urine Bacteria (test code = 29691-8) MANY NONE [facility] Epithelial Sfaxb8640-65-54 14:51:00 * Test Item Value Reference Range Interpretation Comments Urine Epithelial Cells (test code = 20321-7) MANY NONE [facility] Coarse Granular Zyukm9122-61-58 14:51:00* Test Item Value Reference Range Interpretation Comments Urine Coarse Granular Casts (test code = 93348-6) 1-5 >0 [facility] Coarse Granular Itbnr4696-78-36 14:51:00* Test Item Value Reference Range Interpretation Comments Urine Coarse Granular Casts (test code = 05374-7) 1-5 >0 H [facility] Jxwnv8557-86-58 14:32:00* Test Item Value Reference Range Interpretation Comments Sodium Level (test code = 2951-2) 136 136-145 [facility] Jamvt9037-29-56 14:32:00* Test Item Value Reference Range Interpretation Comments Potassium Level (test code = 2823-3) 3.9 3.5-5.1 [facility]iscoChloride Tvric5380-81-93 14:32:00* Test Item Value Reference Range Interpretation Comments Chloride Level (test code = 2075-0) 103 98-107 [facility]iscoCarbon Dioxide Opvfm3458-93-59 14:32:00* Test Item Value Reference Range Interpretation Comments Carbon Dioxide Level (test code = 2028-9) 19 22-29 L [facility]iscoAnion Qig5169-95-25 14:32:00* Test Item Value Reference Range Interpretation Comments Anion Gap (test code = 04372-8) 17.9 8-16 H [facility]iscoBlood Urea Qrafefvb8661-26-72 14:32:00* Test Item Value Reference Range Interpretation Comments Blood Urea Nitrogen (test code = 3094-0) 27 7-26 [facility]iscoCreatinine2018-12-27 14:32:00* Test Item Value Reference Range Interpretation Comments Creatinine (test code = 2160-0) 1.55 0.57-1.11 [facility]iscoBUN/Creatinine Idufv0082-83-85 14:32:00* Test Item Value Reference Range Interpretation Comments BUN/Creatinine Ratio (test code = 3097-3) 17 6-25 [facility]iscoEstimat Glomerular Filtration Rate 2018-05-21 14:32:00* Test Item Value Reference Range Interpretation Comments Estimat Glomerular Filtration Rate (test code = 633279382) 32 >60 L Ranges were taken from the National Kidney Disease Education Program and the [facility] Foundation literature.Reference ranges:60 or greater: Nmcris82-69 ( for 3 consecutive months): Chronic kidney disease 15 or less: Kidney failureTexas Health FriscoGlucose Cdufs1632-86-89 14:32:00* Test Item Value Reference Range Interpretation Comments Glucose Level (test code = MKF7572) 199 74-118 H [facility]iscoCalcium Mlpzy0442-41-27 14:32:00* Test Item Value Reference Range Interpretation Comments Calcium Level (test code = 09976-2) 8.8 8.4-10.2 [facility]iscoTotal Auqrbjsgi9692-11-77 14:32:00* Test Item Value Reference Range Interpretation Comments Total Bilirubin (test code = 1975-2) 0.7 0.2-1.2 [facility]iscoAspartate Amino Transf (AST/SGOT) 2018-05-21 14:32:00* Test Item Value Reference Range Interpretation Comments Aspartate Amino Transf (AST/SGOT) (test code = Aspartate Amino Transf (AST/SGOT)) 31 5-34 [facility]iscoAlanine Aminotransferase (ALT/SGPT) 2018-05-21 14:32:00* Test Item Value Reference Range Interpretation Comments Alanine Aminotransferase (ALT/SGPT) (test code = 1742-6) 36 0-55 [facility]iscoTotal Cmkwyyb8782-44-11 14:32:00* Test Item Value Reference Range Interpretation Comments Total Protein (test code = 2885-2) 7.3 6.5-8.1 [facility]iscoAlbumin2018-12-27 14:32:00* Test Item Value Reference Range Interpretation Comments Albumin (test code = 1751-7) 3.7 3.5-5.0 [facility]iscoGlobulin2018-12-27 14:32:00* Test Item Value Reference Range Interpretation Comments Globulin (test code = 36023-6) 3.6 2.3-3.5 H [facility]iscoAlbumin/Globulin Batpc1690-74-49 14:32:00 * Test Item Value Reference Range Interpretation Comments Albumin/Globulin Ratio (test code = 1759-0) 1.0 0.8-2.0 [facility]iscoAlkaline Xtjcwnyteyd4474-29-36 14:32:00* Test Item Value Reference Range Interpretation Comments Alkaline Phosphatase (test code = 6768-6) 69 40-150 [facility]iscoWhite Blood Zwkus4635-26-52 14:26:00* Test Item Value Reference Range Interpretation Comments White Blood Count (test code = 6690-2) 12.81 4.8-10.8 H [facility]iscoRed Blood Ypxqw6511-16-54 14:26:00* Test Item Value Reference Range Interpretation Comments Red Blood Count (test code = 789-8) 4.30 3.6-5.1 [facility]iscoHemoglobin2018-12-27 14:26:00* Test Item Value Reference Range Interpretation Comments Hemoglobin (test code = 65960-6) 13.6 12.0-16.0 [facility]iscoHematocrit2018-12-27 14:26:00* Test Item Value Reference Range Interpretation Comments Hematocrit (test code = 4544-3) 40.6 34.2-44.1 [facility]iscoMean Corpuscular Xyublf3387-41-44 14:26:00* Test Item Value Reference Range Interpretation Comments Mean Corpuscular Volume (test code = 787-2) 94.4 81-99 [facility]iscoMean Corpuscular Lgioktujhu3770-86-53 14:26:00* Test Item Value Reference Range Interpretation Comments Mean Corpuscular Hemoglobin (test code = 785-6) 31.6 28-32 [facility]iscoMean Corpuscular Hemoglobin Concent 2018-05-21 14:26:00* Test Item Value Reference Range Interpretation Comments Mean Corpuscular Hemoglobin Concent (test code = 786-4) 33.5 31-35 [facility]iscoRed Cell Distribution Wwsxx1847-91-00 14:26:00* Test Item Value Reference Range Interpretation Comments Red Cell Distribution Width (test code = 84277-4) 13.6 11.7 -14.4 [facility]iscoPlatelet Dhicj0800-67-46 14:26:00* Test Item Value Reference Range Interpretation Comments Platelet Count (test code = 777-3) 254 140-360 [facility]iscoNeutrophils (%) (Auto)2018-05-21 14:26:00 * Test Item Value Reference Range Interpretation Comments Neutrophils (%) (Auto) (test code = 22338-2) 91.9 38.7-80.0 H [facility]iscoLymphocytes (%) (Auto)2018-05-21 14:26:00 * Test Item Value Reference Range Interpretation Comments Lymphocytes (%) (Auto) (test code = 736-9) 3.0 18.0-39.1 L [facility]iscoMonocytes (%) (Auto)2018-05-21 14:26:00* Test Item Value Reference Range Interpretation Comments Monocytes (%) (Auto) (test code = 5905-5) 4.2 4.4-11.3 L [facility]iscoEosinophils (%) (Auto)2018-05-21 14:26:00 * Test Item Value Reference Range Interpretation Comments Eosinophils (%) (Auto) (test code = 713-8) 0.2 0.0-6.0 [facility]iscoBasophils (%) (Auto)2018-05-21 14:26:00* Test Item Value Reference Range Interpretation Comments Basophils (%) (Auto) (test code = 706-2) 0.2 0.0-1.0 [facility]iscoIM GRANULOCYTES %2018-05-21 14:26:00* Test Item Value Reference Range Interpretation Comments IM GRANULOCYTES % (test code = IM GRANULOCYTES %) 0.5 0.0- 1.0 [facility]iscoNeutrophils # (Auto)2018-05-21 14:26:00* Test Item Value Reference Range Interpretation Comments Neutrophils # (Auto) (test code = 751-8) 11.8 2.1-6.9 H [facility]iscoLymphocytes # (Auto)2018-05-21 14:26:00* Test Item Value Reference Range Interpretation Comments Lymphocytes # (Auto) (test code = 35560-9) 0.4 1.0-3.2 L [facility]iscoMonocytes # (Auto)2018-05-21 14:26:00* Test Item Value Reference Range Interpretation Comments Monocytes # (Auto) (test code = 742-7) 0.5 0.2-0.8 [facility]iscoEosinophils # (Auto)2018-05-21 14:26:00* Test Item Value Reference Range Interpretation Comments Eosinophils # (Auto) (test code = 711-2) 0.0 0.0-0.4 [facility]iscoBasophils # (Auto)2018-05-21 14:26:00* Test Item Value Reference Range Interpretation Comments Basophils # (Auto) (test code = 704-7) 0.0 0.0-0.1 [facility]iscoAbsolute Immature Granulocyte (auto 2018-05-21 14:26:00* Test Item Value Reference Range Interpretation Comments Absolute Immature Granulocyte (auto (anjali t code = Absolute Immature Granulocyte (auto) 0.07 0-0.1 [facility]iscoMRI BRAIN RY6292-63-46 11:30:00 [facility] [address] [place] [address] Patient Name: YUE RAMSEY MR #: [id number] : 1935 Age/Sex: 82/F Req #: [id number] Adm Physician: Ordered by: SANDRA CHASE MD Report #: [id number] Location: [facility] Room/ Bed: Procedure: [id number] MRI/MRI BRAIN WO Exam Date : Exam Time: REPORT STATUS: Signed History : Amnesia, dizziness Comparison studies: None Technique: Sagittal T2; axial DWI, FLAIR, MPGR, T1, Coronal FLAIR. Intravenous contrast: None Fin dings: Scalp: Normal in signal . No masses . Bone marrow: Normal in signa l intensity. Extra-axial: No masses, no fluid collections. Brain donato lci: Mildly prominent. Ventricles: Mildly prominent . No hydrocephalus . Parenchyma: Scattered T2/flair hyperintensities of the periventricular and de ep white matter. Similar changes are seen at the arlen No masses, hemorrhage, acute or chronic vascular insults. Suprasellar region: No abnormalities. Craniocervical junction: No abnormalities. Patent foramen magnum. No Chiari one malformation. Vessels: Normal flow-voids in the arteries and sinuses. IMPRESSION: 1. No acute abnormalities. 2. Moderate chronic microva scular ischemic changes of the white matter and mild diffuse age-related volum e loss Signed by: DR Trenton Ricardo M.D. on 01/30/2018 11:44 AM Dictated By: TRENTON HOOVER MD 1144 Transcribed By: GELY on 01/30/18 1144 COPY TO: SANDRA CHASE MD White Blood Wxhzv6976-02-12 10:02:00* Test Item Value Reference Range Interpretation Comments White Blood Count (test code = 6690-2) 7.09 4.8-10.8 [facility]iscoRed Blood Pwvkr1139-78-16 10:02:00* Test Item Value Reference Range Interpretation Comments Red Blood Count (test code = 789-8) 4.60 3.6-5.1 [facility]iscoHemoglobin2018-04-09 10:02:00* Test Item Value Reference Range Interpretation Comments Hemoglobin (test code = 19054-7) 13.9 12.0-16.0 [facility]iscoHematocrit2018-04-09 10:02:00* Test Item Value Reference Range Interpretation Comments Hematocrit (test code = 4544-3) 40.9 34.2-44.1 [facility]iscoMean Corpuscular Nusyez2932-80-77 10:02:00* Test Item Value Reference Range Interpretation Comments Mean Corpuscular Volume (test code = 787-2) 88.9 81-99 [facility]iscoMean Corpuscular Ovfneevgbd2521-60-72 10:02:00* Test Item Value Reference Range Interpretation Comments Mean Corpuscular Hemoglobin (test code = 785-6) 30.2 28-32 [facility]iscoMean Corpuscular Hemoglobin Concent 2017-09-01 10:02:00* Test Item Value Reference Range Interpretation Comments Mean Corpuscular Hemoglobin Concent (test code = 786-4) 34.0 31-35 [facility]iscoRed Cell Distribution Agmgl6133-76-77 10:02:00* Test Item Value Reference Range Interpretation Comments Red Cell Distribution Width (test code = 52435-7) 13.7 11.7 -14.4 [facility]iscoPlatelet Ikmgd7895-77-48 10:02:00* Test Item Value Reference Range Interpretation Comments Platelet Count (test code = 777-3) 235 140-360 [facility]iscoNeutrophils (%) (Auto)2017-09-01 10:02:00 * Test Item Value Reference Range Interpretation Comments Neutrophils (%) (Auto) (test code = 11234-8) 62.1 38.7-80.0 [facility]iscoLymphocytes (%) (Auto)2017-09-01 10:02:00 * Test Item Value Reference Range Interpretation Comments Lymphocytes (%) (Auto) (test code = 736-9) 26.0 18.0-39.1 [facility]iscoMonocytes (%) (Auto)2017-09-01 10:02:00* Test Item Value Reference Range Interpretation Comments Monocytes (%) (Auto) (test code = 5905-5) 7.6 4.4-11.3 [facility]iscoEosinophils (%) (Auto)2017-09-01 10:02:00 * Test Item Value Reference Range Interpretation Comments Eosinophils (%) (Auto) (test code = 713-8) 3.0 0.0-6.0 [facility]iscoBasophils (%) (Auto)2017-09-01 10:02:00* Test Item Value Reference Range Interpretation Comments Basophils (%) (Auto) (test code = 706-2) 1.0 0.0-1.0 [facility]iscoIM GRANULOCYTES %2017-09-01 10:02:00* Test Item Value Reference Range Interpretation Comments IM GRANULOCYTES % (test code = IM GRANULOCYTES %) 0.3 0.0- 1.0 [facility]iscoNeutrophils # (Auto)2017-09-01 10:02:00* Test Item Value Reference Range Interpretation Comments Neutrophils # (Auto) (test code = 751-8) 4.4 2.1-6.9 [facility]iscoLymphocytes # (Auto)2017-09-01 10:02:00* Test Item Value Reference Range Interpretation Comments Lymphocytes # (Auto) (test code = 17774-0) 1.8 1.0-3.2 [facility]iscoMonocytes # (Auto)2017-09-01 10:02:00* Test Item Value Reference Range Interpretation Comments Monocytes # (Auto) (test code = 742-7) 0.5 0.2-0.8 [facility]iscoEosinophils # (Auto)2017-09-01 10:02:00* Test Item Value Reference Range Interpretation Comments Eosinophils # (Auto) (test code = 711-2) 0.2 0.0-0.4 [facility]iscoBasophils # (Auto)2017-09-01 10:02:00* Test Item Value Reference Range Interpretation Comments Basophils # (Auto) (test code = 704-7) 0.1 0.0-0.1 [facility]iscoAbsolute Immature Granulocyte (auto 2017-09-01 10:02:00* Test Item Value Reference Range Interpretation Comments Absolute Immature Granulocyte (auto (anjali t code = Absolute Immature Granulocyte (auto) 0.02 0-0.1 [facility] Centerodium Rxwbh7141-54-42 10:02:00* Test Item Value Reference Range Interpretation Comments Sodium Level (test code = 2951-2) 141 136-145 [facility]iscoPotassium Ebdjl6427-13-55 10:02:00* Test Item Value Reference Range Interpretation Comments Potassium Level (test code = 2823-3) 3.7 3.5-5.1 [facility]iscoChloride Eyovg0251-74-21 10:02:00* Test Item Value Reference Range Interpretation Comments Chloride Level (test code = 2075-0) 109 98-107 H [facility]iscoCarbon Dioxide Frzlj0048-11-65 10:02:00* Test Item Value Reference Range Interpretation Comments Carbon Dioxide Level (test code = 2028-9) 24 22-29 [facility] FriscoAnion Oem6887-99-06 10:02:00* Test Item Value Reference Range Interpretation Comments Anion Gap (test code = 94089-7) 11.7 8-16 [facility]iscoBlood Urea Stwrlpcg3334-59-33 10:02:00* Test Item Value Reference Range Interpretation Comments Blood Urea Nitrogen (test code = 3094-0) 20 7-26 [facility]iscoCreatinine2018-04-09 10:02:00* Test Item Value Reference Range Interpretation Comments Creatinine (test code = 2160-0) 1.14 0.57-1.11 H [facility]iscoBUN/Creatinine Mvsjy1585-25-68 10:02:00* Test Item Value Reference Range Interpretation Comments BUN/Creatinine Ratio (test code = 3097-3) 18 6-25 [facility]iscoEstimat Glomerular Filtration Rate 2017-09-01 10:02:00* Test Item Value Reference Range Interpretation Comments Estimat Glomerular Filtration Rate (test code = 92374-4) 46 >60 L Ranges were taken from the National Kidney Disease Education Program and the [facility] literature.Reference ranges:60 or greater: Sgwfye92-83 ( for 3 consecutive months): Chronic kidney disease 15 or less: Kidney failureTexas Health FriscoGlucose Keotq0795-88-20 10:02:00* Test Item Value Reference Range Interpretation Comments Glucose Level (test code = RSF4634) 146 74-118 H [facility]iscoCalcium Mewia7070-81-04 10:02:00* Test Item Value Reference Range Interpretation Comments Calcium Level (test code = 52600-0) 9.2 8.4-10.2 [facility]iscoTotal Dsflfqykd5897-49-72 10:02:00* Test Item Value Reference Range Interpretation Comments Total Bilirubin (test code = 1975-2) 0.7 0.2-1.2 [facility] FriscoAspartate Amino Transf (AST/SGOT) 2017-09-01 10:02:00* Test Item Value Reference Range Interpretation Comments Aspartate Amino Transf (AST/SGOT) (test code = Aspartate Amino Transf (AST/SGOT)) 27 5-34 [facility]iscoAlanine Aminotransferase (ALT/SGPT) 2017-09-01 10:02:00* Test Item Value Reference Range Interpretation Comments Alanine Aminotransferase (ALT/SGPT) (test code = 1742-6) 20 0-55 [facility]iscoTotal Oadecen3069-60-54 10:02:00* Test Item Value Reference Range Interpretation Comments Total Protein (test code = 2885-2) 7.6 6.5-8.1 [facility]iscoAlbumin2018-04-09 10:02:00* Test Item Value Reference Range Interpretation Comments Albumin (test code = 1751-7) 3.8 3.5-5.0 [facility]iscoGlobulin2018-04-09 10:02:00* Test Item Value Reference Range Interpretation Comments Globulin (test code = 45446-3) 3.8 2.3-3.5 H [facility]iscoAlbumin/Globulin Jxtzu2556-51-48 10:02:00 * Test Item Value Reference Range Interpretation Comments Albumin/Globulin Ratio (test code = 1759-0) 1.0 0.8-2.0 [facility]iscoAlkaline Vngkqodwjmh1633-29-04 10:02:00* Test Item Value Reference Range Interpretation Comments Alkaline Phosphatase (test code = 6768-6) 77 40-150 [facility]iscoUrine ITM1921-19-35 10:27:00* Test Item Value Reference Range Interpretation Comments Urine WBC (test code = 5821-4) NONE 0-5 [facility]iscoUrine KPM0153-46-02 10:27:00* Test Item Value Reference Range Interpretation Comments Urine RBC (test code = 82695-8) 0-5 0-5 [facility]iscoUrine Sxmdegzy8842-46-44 10:27:00* Test Item Value Reference Range Interpretation Comments Urine Bacteria (test code = 53332-1) NONE NONE [facility]iscoUrine Epithelial Nnkxf4501-81-39 10:27:00 * Test Item Value Reference Range Interpretation Comments Urine Epithelial Cells (test code = 23917-4) RARE NONE [facility]iscoUrine Odhql8962-64-04 09:20:00* Test Item Value Reference Range Interpretation Comments Urine Color (test code = 5778-6) YELLOW YELLOW [facility]iscoUrine Qyomzyj0723-09-27 09:20:00* Test Item Value Reference Range Interpretation Comments Urine Clarity (test code = 95557-2) CLEAR CLEAR [facility]iscoUrine Specific Eronojh7413-63-94 09:20:00 * Test Item Value Reference Range Interpretation Comments Urine Specific [place] (test code = 5811-5) 1.015 1.010-1.02 5 [facility]iscoUrine oE7915-90-38 09:20:00* Test Item Value Reference Range Interpretation Comments Urine pH (test code = 04393-3) 5 5-7 [facility]iscoU[facility] Leukocyte Lztcpqvd1662-68-32 09:20:00* Test Item Value Reference Range Interpretation Comments Urine Leukocyte Esterase (test code = 5799-2) NEGATIVE NEGATIVE [facility]iscoUrine Ofojdfj1675-11-86 09:20:00* Test Item Value Reference Range Interpretation Comments Urine Nitrite (test code = 42423-2) NEGATIVE NEGATIVE [facility]iscoUrine Srjqqgw7450-91-40 09:20:00* Test Item Value Reference Range Interpretation Comments Urine Protein (test code = 5804-0) NEGATIVE NEGATIVE [facility]iscoUrine Glucose (UA)2017-03-13 09:20:00* Test Item Value Reference Range Interpretation Comments Urine Glucose (UA) (test code = 2349-9) NEGATIVE NEGATIVE [facility]iscoUrine Sklhwon6849-11-12 09:20:00* Test Item Value Reference Range Interpretation Comments Urine Ketones (test code = 21394-7) NEGATIVE NEGATIVE [facility]iscoUrine Sejymfommmyn6094-24-57 09:20:00* Test Item Value Reference Range Interpretation Comments Urine Urobilinogen (test code = 74899-3) 0.2 0.2-1 [facility]iscoUrine Kdfnydmtc4060-26-61 09:20:00* Test Item Value Reference Range Interpretation Comments Urine Bilirubin (test code = 1978-6) NEGATIVE NEGATIVE [facility]iscoUrine Uzuxa0722-15-46 09:20:00* Test Item Value Reference Range Interpretation Comments Urine Blood (test code = 82682-4) TRACE NEGATIVE H [facility] FriscoBedside Sadlugo6617-11-62 02:54:00* Test Item Value Reference Range Interpretation Comments Bedside Glucose (test code = 73367-6) 103 70-120 Meter ID: [id number] Health LevellandFerritin2017-10-15 14:02:00* Test Item Value Reference Range Interpretation Comments Ferritin (test code = 2276-4) 74.76 4.63-204.00 [facility]iscoIron Nsekr9145-22-69 13:46:00* Test Item Value Reference Range Interpretation Comments Iron Level (test code = 2498-4) 82 50-170 [facility]iscoTotal Iron Binding Zpwlglsf6152-86-52 13:46:00* Test Item Value Reference Range Interpretation Comments Total Iron Binding Capacity (test code = 2500-7) 244 261-4 78 L [facility] FriscoPercent Iron Uomuvcvzyg1852-70-17 13:46:00* Test Item Value Reference Range Interpretation Comments Percent Iron Saturation (test code = 2502-3) 34 15-50 [facility] FriscoTransferrin2017-10-15 13:46:00* Test Item Value Reference Range Interpretation Comments Transferrin (test code = 3034-6) 174 180-382 L [facility] FriscoPercent Reticulocyte Ykkzy9663-41-53 13:30:00* Test Item Value Reference Range Interpretation Comments Percent Reticulocyte Count (test code = 44675-1) 1.6 0.8-2 .2 [facility] Centertool Occult Gjaez4019-74-49 09:35:00* Test Item Value Reference Range Interpretation Comments Stool Occult Blood (test code = 2335-8) POSITIVE NEGATIVE H [facility] FriscoThyroid Stimulating Hormone (TSH) 2017-03-09 09:10:00* Test Item Value Reference Range Interpretation Comments Thyroid Stimulating Hormone (TSH) (test code = 85656-3) 2.526 0.350-4.940 [facility]iscoTriglycerides Tpmlh5950-96-86 08:52:00* Test Item Value Reference Range Interpretation Comments Triglycerides Level (test code = 2571-8) 200 0-149 H [facility]iscoCholesterol Dsuzx4786-07-46 08:52:00* Test Item Value Reference Range Interpretation Comments Cholesterol Level (test code = 2093-3) 109 0-199 Less than 200 mg/dL Low Xazn131 - 239 mg/dL Borderline Vjzv493 m g/dl and greater High Risk [facility] FriscoLDL Pbxjfzgvzow7133-04-96 08:52:00* Test Item Value Reference Range Interpretation Comments LDL Cholesterol (test code = 26725-1) 39 60-130 L [facility]iscoHDL Zwphvuxnxcp8512-77-40 08:52:00* Test Item Value Reference Range Interpretation Comments HDL Cholesterol (test code = 2085-9) 30 40-60 L [facility]iscoCholesterol/HDL Uitmf3897-58-48 08:52:00 * Test Item Value Reference Range Interpretation Comments Cholesterol/HDL Ratio (test code = 9830-1) 3.6 3.0-3.6 [facility] FriscoCreatine Kinase ML5901-02-08 00:11:00* Test Item Value Reference Range Interpretation Comments Creatine Kinase MB (test code = 73604-5) 1.10 0.00-5.00 [facility] FriscoTroponin I8179-70-67 00:11:00* Test Item Value Reference Range Interpretation Comments Troponin I (test code = YIE6934) 0.013 0-0.300 [facility]iscoCreatine Dmqxwr5460-28-49 00:10:00* Test Item Value Reference Range Interpretation Comments Creatine Kinase (test code = 2157-6) 19 29-168 L [facility] FriscoAmylase Mlrwt0948-92-26 13:01:00* Test Item Value Reference Range Interpretation Comments Amylase Level (test code = 1798-8) 77 25-125 [facility] FriscoLipase2017-10-14 13:01:00* Test Item Value Reference Range Interpretation Comments Lipase (test code = 3040-3) 93 8-78 H [facility] FriscoProthrombin Oypy2292-30-24 08:11:00* Test Item Value Reference Range Interpretation Comments Prothrombin Time (test code = 5902-2) 14.2 11.9-14.5 [facility] FriscoProthromb Time International Ratio 2017-03-08 08:11:00* Test Item Value Reference Range Interpretation Comments Prothromb Time International Ratio (test code = 6301-6) 1.05 Oral Anticoagulant Therapy INR Values:1. Low Intensity Therapy 1.5 - 2.02 . Moderate Intensity Therapy 2.0 - 3.03. High Intensity Therapy(1) 2.5 - 3. 54. High Intensity Therapy(2) 3.0 - 4.05. Panic Value INR > 5.0 [facility] 2017-03-08 08:11:00* Test Item Value Reference Range Interpretation Comments Activated Partial Thromboplast Time (test code = 20914-0) 34.5 23.8-35.5 [facility] Glouupo4485-27-02 17:04:00* Test Item Value Reference Range Interpretation Comments Blood Culture (test code = 91249426) NO GROWTH AFTER 5 DAYS, FINAL REPORT [facility] IgM Moazoqgc4714-61-43 06:17:00* Test Item Value Reference Range Interpretation Comments Hepatitis A IgM Antibody (test code = 16492-9) Negative Negativ e [facility] B Surface Biqonke7094-74-75 06:17:00* Test Item Value Reference Range Interpretation Comments Hepatitis B Surface Antigen (test code = 5196-1) Negative Negat scottie [facility] B Core IgM [id number] 06:17:00* Test Item Value Reference Range Interpretation Comments Hepatitis B Core IgM Antibody (test code = 44973-4) Negative Ne gative [facility] Zwsahcbv7300-21-65 06:17:00* Test Item Value Reference Range Interpretation Comments Hepatitis C Antibody (test code = 82020-1) -0.1 0.0-0.9 Negative: < 0.8 Indeterminate: 0.8 - 0.9 Positive: > 0.9 The CDC recommends that a positive HCV antibody result be followed up with a HCV Nucleic Acid Amplification test (999070).Performed at: - [facility] [id number] [place] [address] [id number] Director: Dao Barrera MD, Phone: [phone] [facility] (PORTABLE) [facility] [address] [place] [address] Patient Name: YUE RAMSEY MR #: [id number] : 1935 Age/Sex: 81/F Req #: [id number] Adm Physician: Ordered by: NEERAJ TIRADO MD Report #: [id number] Location: ER Room/Bed: Procedure: [id number] DX/CHEST SINGLE (PORTABLE) E xam Date: 03/13/17 Exam Time: 934 REPORT STATU S: Signed PROCEDURE: CHEST SINGLE (PORTABLE) COMPARISON: Chest x-ra y from 01/12/17. INDICATIONS: ALTERED MENTAL STATUS FINDINGS: Lines and tubes: None The cardiac silhouette is prominent, possibly ac centuated by low lung volumes. No focal pulmonary opacity, pleural effu emily or pneumothorax. Upper abdomen unremarkable with no free air. No acut e bony abnormality. CONCLUSION: No evidence for acute disease. Di ctated by: Doe Lewis M.D. on 03/13/2017 at 10:00 Electronically beba roved by: Doe Lewis M.D. on 03/13/2017 at 10:00 Dictated By: DOE LEWIS MD 00 Transcribed By: NAM on 03/13/17 1000 COPY TO: NEERAJ TIRADO MD CT BRAIN WO [place] [address] Patient Name: YUE RAMSEY MR #: [id number] : 1935 Age/Sex: 81/F Req #: [id number] Adm Physician: Ordered by: NEERAJ TIRADO MD Report #: [id number] Location: ER Room/Bed: Procedure: [id number] CT/CT BRAIN WO Exam Date: Exam Time: 932 REPORT STATUS: Signed EXAMINATION: Head CT HISTORY: Altered mental status COMPARISON: Head CT on 08/03/2014 TECHNIQUE: Multidetector axial images were obtained without cont rast from the foramen magnum to the vertex . The images were reconstructed usi ng brain and bone algorithms. Thin section brain images were reformatted into coronal and sagittal planes. Intravenous contrast: None. Motion/streakin g artifact limits the evaluation of the skull base and posterior cranial fossa . FINDINGS: Parenchyma: 1. Mild white matter chronic contrast and ischemic changes, within normal limits for age. 2. No mass or hemorrha ge. No CT evidence of acute territorial vascular insult. Extra- axial spaces:No abnormal density. No extra-axial fluid collections Brain volume: Normal for age. Ventricles: No hydrocephalus or displacement. Arteries: No density suggestive of thrombus. Dural sinuses: No a bnormal density. Extra-axial spaces: No abnormal density. Forame n magnum: No mass, Chiari malformation, or basilar invagination. Sella: No obvious mass. Paranasal/mastoid sinuses: Imaged portions unremarkabl e. Skull/Scalp: No lytic or blastic lesions. No fractures. IMPRES EMILY: 1. No acute abnormalities, particularly no hemorrhage or cortical in farct. 2. Mild chronic microvascular ischemic changes. Signed by: Dr. Peterson Schultz M.D. on 03/13/2017 11:15 AM Dictated By: PETERSON SCHULTZ MD El ectronically Signed By: PETERSON SCHULTZ MD on 03/13/17 1115 Transcribed By: GELY on 03/13/17 1115 COPY TO: NEERAJ TIRADO [facility] ([place] [address] Patient Name: YUE RAMSEY MR #: [id number] : 1935 Age/Sex: 81/F Req #: [id number] Adm Physicia n: SANDRA CHASE MD Ordered by: MATTHEW GALAVIZ MD Report #: [id number] Loca tion: [facility] Room/Bed: [facility] 1979 Procedure: [id number] DX/ABDOMEN-1VIEW (KUB) Exam Date: 03/08/17 Exam Time : 1347 REPORT STATUS: Signed EXAM: Abdomen 2 Views INDICATION: Abdom inal pain. COMPARISON: MRCP dated 01/13/2017 FINDINGS: Limited by body habitus. Nonobstructive bowel gas pattern. No signs of pneumoperitone um. Multilevel degenerative changes of lumbar spine. Lung bases are clear. Soft tissue calcifications overlying iliac bones. IMPRESSION: 1. Nonobs tructive bowel gas pattern. Signed by: Dr. Immanuel Briscoe MD on 03/08/2017 2:12 PM Dictated By: IMMANUEL BRISCOE MD 11 Transcribed By: GELY on 03/08/171411 COPY T O: MATTHEW GALAVIZ MD US ABDOMEN COMPLETE [place] [address] Patient Name: YUE RAMSEY MR #: [id number] : 1935 Age/Sex: 81/F Req #: [id number] Adm Physician: SANDRA CHASE MD Ordered by: MATTHEW GALAVIZ MD Report #: [id number] Location: [facility] Room/Bed: [place] [address] Procedure: [id number] US/US ABDOMEN COMPLETE Exam Date: Exam Time: REPORT STATUS: Signed EXAM: Complete Abdominal Ultrasound INDICATION: COMPARISON: Ultrasound dated 01/12/2017. TECHNIQUE: Transverse and lo ngitudinal images of the upper abdomen were obtained. FINDINGS: L iver: Size: 14.1 cm in the right midclavicular line, normal Appear ance: Normal echogenicity, smooth contour Mass: No focal masses Sple en: Size: 9.5 cm in length, normal Echogenicity: Normal Mass: No focal masses Gallbladder: Stones/Sludge: None Wall: 0.1 cm Appearance: No pericholecystic fluid or hydrops. Sonograp hic Sierra's Sign: Negative Bile Ducts: Intrahepatic Ducts: No dilat ation Extrahepatic Ducts: Common bile duct measures 0.3 cm, normal P ancreas: Visualized portions of the pancreatic head, neck and proximal sylvia dy are normal. Right Kidney: Size: 9.7 cm Echogenicity: N ormal Parenchymal thickness: Normal Collecting System: No hydron ephrosis Stone: None Cyst/Mass: Multiple right renal cysts, the l argest measuring 5.1 x 4.6 x 4.1 cm and 2.9 x 1.6 x 3 cm Lef t Kidney: Size: 8.6 cm Echogenicity: Normal Parenchymal thickness: Normal Collecting System: No hydronephrosis Stone: None Cyst/Mass: 2.3 x 2.1 x 2.2 cm cyst. Vessels: Aorta: Visu alized portions are normal Inferior Vena Cava: Visualized portions are no rmal Main Portal Vein: 0.8 cm, normal size with hepatopetal flow. Fr ee Fluid: No ascites or pleural effusion IMPRESSION: Bilateral den al cysts. Otherwise, unremarkable abdominal ultrasound. Sign ed by: Dr. Immanuel Briscoe MD on 03/08/2017 4:51 PM Dictated By: IMMANUEL FALLON MD 50 Transcribe d By: GELY on 03/08/171650 COPY TO: MATTHEW GALAVIZ MD MRI MRCP [place] [address] Patient Name: YUE RAMSEY MR #: [id number] : 1935 Age/Sex: 81/F Req #: [id number] Adm Physician: SANDRA CHASE MD Ordered by: ABRAHAM TOLENTINO MD Report #: [id number] Location: MED/SURG2 Room/Bed: [facility] Procedure: [id number] MRI/MRI MRCP WO Exam Date: 01/13/17 Exam Time: 0850 REPORT STATUS: Signed EXAM: Magnetic Resonance Cholangiopancreatogr aphy (M.R.C.P.) INDICATION: COMPARISON: Abdominal ultra sound 01/12/2017, abdominal CT 01/12/2017 TECHNIQUE: Multiplanar, multisequence MRCP was performed, with sequences including coronal turbo spin-echo T1-weight ed scans, SSH MRCP scans, coronal spin, coronal MPR 2, SMRCP 3D HR, SSH MRCP R AI. IV Contrast: None Oral Contrast: None Medications: N one COMPLICATIONS: None FINDINGS: LOWER THORAX: Trace pericardial effusion. HEPATOBILIARY: No focal hepatic lesions. No biliar y ductal dilation. No filling defects within the common bile duct. GALLBL ADDER: No stones or sludge. Previously noted sludge on ultrasound 01/12/2017 is not apparent on the current exam. No wall thickening. SPLEEN: No splenomeg maryana. PANCREAS: No focal masses or ductal dilatation. ADRENALS: No a drenal nodules KIDNEYS/URETERS: No hydronephrosis. Multiple bilateral r enal cysts measuring up to 5.1 cm in the right kidney and 2.4 cm and the left kidney. These appear simple, although evaluation is limited without intravenou s contrast. Renal stones are difficult to visualize with MRI. GI TRACT: N o abnormal distention, wall thickening, or evidence of bowel obstruction. Sma ll to moderate hiatal hernia. LYMPH NODES: Prominent mandi hepatis lym ph nodes measure up to 1.1 cm, nonspecific. VESSELS: Unremarkable. P ERITONEUM / RETROPERITONEUM: No free fluid. BONES: Unremarkable. SOFT TISSUES: Unremarkable. IMPRESSION: 1. No acute abnormalities. 2. Multiple bilateral renal cysts. 3. Prominent mandi hepatis lymph nod es are nonspecific but can be seen with hepatitis infection. 4. Hiatal her sowmya. Signed by: DR. Nick King MD on 01/13/2017 3:41 PM Dic tated By: NICK KING MD 40 COPY TO: OMID TOLENTINO MD CHEST 2 VIEWS [place] [address] Patient Name: YUE RAMSEY MR #: [id number] : 1935 Age/Sex: 81/F Req #: [id number] Adm Physician: Ordered by: NEERAJ TIRADO MD Report #: [id number] Location: ER Room/Bed: Procedure: [id number] DX/CHEST 2 VIEWS Exam Date: 01/12/17 Exam Time: 1445 REPORT STATUS: Signed EXAMINATION: Chest, CHEST 2 VIEWS INDICATION: Chest pain SELWYN RISON: None FINDINGS: LINES: None. Heart: Normal card iac silhouette. Vascular: The pulmonary vasculature is within normal limits . Atherosclerotic calcifications of the aortic arch. Mediastinum: No med iastinal, hilar, or axillary mass or lymphadenopathy. Lungs: No parenchymal mass. No focal consolidation. Pleura: No pleural effusion. No pneumotho rax. Bones: No acute osseous abnormality. Degenerative changes of the thor acic spine. Soft tissues: Normal. Impression: No acute radiograp hic abnormality. Signed by: Dr. Julio Byrd M.D. on 01/12/2017 3:31 PM Dictated By: JULIO BYRD MD 30 COPY TO: NEERAJ TIRADO MD CT ABDOMEN/PELVIS WO [place] [id number] [place] [address] Patient Name: YUE RAMSEY MR #: [id number] : 1935 Age/Sex: 81/F Req #: [id number] Adm Physician: Ordered by: NEERAJ TIRADO MD Report #: [id number] Location: ER Room/Bed: Procedure: [id number] CT/CT ABDOMEN/PELVIS WO Exam Date: 01/12/17 Exam Time: 1500 REPORT STATUS: Signed EXAM: CT Abdomen and Pelvis WITHOUT contrast INDICATION: Abdomi nal pain COMPARISON: None. TECHNIQUE: Abdomen and pelvis were scanned utiliz ing a multidetector helical scanner from the lung base to the pubic symphysis. Coronal and sagittal reformations were obtained. The lack of intravenous con trast limits the evaluation of the solid organs, vasculature, and possible lym phadenopathy. Protocol: General survey without contrast IV CONTRAST: No intravenous contrast was administered as per physician request. ORAL CONTRAST : None. COMPLICATIONS: None. RADIATION DOSE: Total Exam DLP: 253.6 mGy*c m. CTDIvol has been reviewed. It is below the limits set by the Radiation Prot ocol Committee (RPC). FINDINGS: LINES: None. Lower thorax: No p arenchymal abnormality. No pneumothorax. No pleural effusion. Adali er: No focal mass. No hepatomegaly. Normal parenchyma. Gallbladder: No gall stones. No gallbladder distention. Biliary tree: No intrahepatic duct dilatio n. No extrahepatic duct dilation. Spleen: No splenomegaly. No focal mass. P ancreas: No focal mass. Normal pancreatic duct. No peripancreatic inflammato ry changes. Kidneys: No obstructing calculi. No hydronephrosis. Multiple bilateral cysts, several of which have partial calcifications. No perinephric soft tissue inflammatory changes. Adrenal glands: No adrenal nodules.. Bladder: Normal urinary bladder. Pelvic organs: Hysterectomy. No ovar ies are visualized. GI: Moderate hiatal hernia. No bowel wall thickening. No air-fluid levels. The stomach and small bowel are normal. Numerous diver ticuli are present in the descending and sigmoid colon, without adjacent soft tissue inflammatory changes. No appendix is visualized. A moderate amount of retained feces limits intraluminal evaluation of the colon. Peritoneum/r etroperitoneum: No pneumoperitoneum. No ascites. No drainable fluid collect ion. Lymph nodes: No lymphadenopathy. . Vessels: No focal abnormali ty. Atherosclerotic calcifications. Limited evaluation. Bones: No focal abnormality. Degenerative changes of the lumbar spine. Soft tissues: No foc al abnormality. IMPRESSION: No acute abnormality of the abdomen and pel vis. Multiple indeterminate renal cysts. A nonemergent renal ultrasound may p rovide additional information for further characterization. Diverticulosis w ithout evidence of diverticulitis. Signed by: Srinath Weinstein on 01/12/2017 3:44 PM Dictated By: JULIO BYRD MD 1544 Transcribed By: GELY on 01/12/17 9259 COPY TO: NEERAJ TIRADO MD [place] [address] Patient Name: YUE RAMSEY MR #: [id number] : 1935 Age/Sex: 81/F Req #: [id number] Adm Physician: SANDRA CHASE MD Ordered by: NEERAJ TIRADO MD Report #: [id number] Location: [facility] Room/Bed: [place] [address] Procedure: [id number] US/US LIVER Exam Date: Exam Time: REPORT STA TUS: Signed EXAM: Right Upper Quadrant Ultrasound INDICATION: Elevat ed liver enzymes COMPARISON: CT of the abdomen and pelvis on 01/12/2017 TECH NIQUE: Transverse and longitudinal images of the right upper abdomen were obta ined. FINDINGS: Liver: Size: 15.4 cm in the right midclavicular l ine, normal Appearance: Normal echogenicity, smooth contour Mass: No focal m asses Gallbladder: Stones/Sludge: Small amount sludge Wall: 0.1 cm Ap pearance: No wall thickening, pericholecystic fluid or hydrops. Sonographic Sierra's Sign: Negative Bile Ducts: Intrahepatic Ducts: No dilatation E xtrahepatic Ducts: Common bile duct measures 0.4 cm, no dilatation Pancreas : Visualized portions of the pancreatic head, neck and proximal body are ronen l. Kidneys: Length: Right 12.1 cm Echogenicity: Normal Collecting System: No hydronephrosis Stone: None Cyst/Mass: Multiple ri ght renal cysts, the largest measuring 4.8 x 4 x 4.8 cm in the upper pole Vessels: Aorta: Visualized portions are normal Inferior Vena Cava: Visualiz ed portions are normal Main Portal Vein: 0.7 cm, normal size with hepatopetal flow. Free Fluid: No ascites or pleural effusion IMPRESSION: 1. M ultiple right renal cysts. 2. Gallbladder sludge without wall thickening. 3 . Otherwise, unremarkable study Signed by: Dr. Luther Arenas M.D. on 2016 8:17 PM Dictated By: LUTHER BLACK MD 16 Transcribed By: GELY on 2016 COPY TO: NEERAJ TIRADO MD
--- NOTE | 2019-11-06 09:22 | Emergency Department Note ---
History of Present Illnes History of Present Illness Chief Complaint: Hypertension History of Present Illness This is a 84 year old female presents to the ED for elevated BP since last night along with non-specific weakness with chronic dyspnea . Patient seen at bedside , poor historian. Onset (how long ago): day(s) (1) Severity: moderate Duration (how long): day(s) (1) Timing of current episode: constant Progression: worsening Relieving factors: none Exacerbating factors: none Associated symptoms: Reports shortness of breath, Reports weakness Past Medical/Family History Physician Review I have reviewed the patient's past medical and family history. Any updates have been documented here. Past Medical History Recent Fever: No Clinical Suspicion of Infectio: No New/Unexplained Change in Ment: No Past Medical History: Hypertension, Hypothyroidism, Cancer, UTI's, GERD, Hyperlipedemia, Osteoarthritis Other Medical History: Neuropathy, gout, cervical and ovarian cancer, osteoporosis, vertigo Past Surgical History: Hysterectomy, Pacer/AICD, Knee Replacement Other Surgery: Bilateral knee replacement, renal artery stent Social History Smoking Cessation: Never Smoker Alcohol Use: None Any Illegal Drug Use: No Other Last Tetanus: OOD Review of Systems Review of Systems Constitutional: Reports weakness EENTM: Reports no symptoms Cardiovascular: Reports no symptoms Respiratory: Reports dyspnea Gastrointestinal: Reports no symptoms Genitourinary: Reports no symptoms Musculoskeletal: Reports no symptoms Integumentary: Reports no symptoms Neurological: Reports no symptoms Psychological: Reports no symptoms Endocrine: Reports no symptoms Hematological/Lymphatic: Reports no symptoms Physical Exam Related Data Allergies: Coded Allergies: Penicillins (Verified Allergy, Mild, 11/10/18) Triage Vital Signs Vital Signs Date Time Temp Pulse Resp B/P (MAP) Pulse Ox O2 Delivery O2 Flow Rate FiO2 11/06/19 09:18 97.5 60 22 204/86 100 11/06/19 19:57 Room Air Vital signs reviewed: Yes Physical Exam CONSTITUTIONAL Constitutional: Present well-developed, Present well-nourished, Present other (anxious) HENT HENT: Present normocephalic, Present atraumatic, Present oropharynx clear/moist, Present nose normal HENT L/R: Present left ext ear normal, Present right ext ear normal EYES Eyes: Reports PERRL, Reports conjunctivae normal NECK Neck: Present ROM normal PULMONARY Pulmonary: Present other (tachypnea) CARDIOVASCULAR Cardiovascular: Present regular rhythm, Present heart sounds normal, Present capillary refill normal, Present normal rate GASTROINTESTINAL Abdominal: Present soft, Present nontender, Present bowel sounds normal GENITOURINARY Genitourinary: Present exam deferred SKIN Skin: Present warm, Present dry MUSCULOSKELETAL Musculoskeletal: Present ROM normal NEUROLOGICAL Neurological: Present alert, Present no gross motor or sensory deficits PSYCHOLOGICAL Psychological: Present other (pleasantly confused, anxoius) Results Laboratory Lab results reviewed: Yes Laboratory comments CMP : Cr 1.29 CBC : wnl Imaging Imaging results reviewed: Yes Impressions [facility] [address] [place] [address] Patient Name: YUE RAMSEY MR #: [id number] : 1935 Age/Sex: 84/F Req #: [id number] Adm Physician: Ordered by: RICKI REMY DO Report #: [id number] Location: ER Room/Bed: Procedure: [id number] DX/CHEST SINGLE (PORTABLE) Exam Date: Exam Time: REPORT STATUS: Signed EXAMINATION: CHEST SINGLE (PORTABLE) INDICATION: ^ERMD ORDER ^Y COMPARISON: Rib series 10/01/2019, CT chest 07/24/2019 FINDINGS: AP view TUBES and LINES: Stable position of a 2-lead pacemaker with leads overlying the right atrial appendage and right ventricle. LUNGS: Lungs are well inflated. Mild increased interstitial lung markings, unchanged. No new consolidations. PLEURA: No pleural effusion or pneumothorax. HEART AND MEDIASTINUM: The cardiomediastinal silhouette is unremarkable. Mild calcifications of the aortic arch. BONES AND SOFT TISSUES: No acute osseous lesion. Soft tissues are unremarkable. UPPER ABDOMEN: No free air under the diaphragm. IMPRESSION: Unchanged mild bilateral interstitial edema. No new consolidations. Signed by: Dr. Nicki Lagunas M.D. on 11/06/2019 10:24 AM Dictated By: NICKI LAGUNAS MD 1024 Transcribed By: GELY on 11/06/19 1024 COPY TO: RICKI REMY DO~ [facility] [address] [place] [address] Patient Name: YUE RAMSEY MR #: [id number] : 1935 Age/Sex: 84/F Req #: [id number] Adm Physician: Ordered by: RICKI REMY DO Report #: [id number] Location: ER Room/Bed: Procedure: [id number] CT/CT BRAIN WO Exam Date: 11/06/19 Exam Time: 1013 REPORT STATUS: Signed CT BRAIN WO HISTORY: Unsteady gait, weakness, high blood pressure COMPARISON: Head CT 10/01/2019 and brain MRI 06/29/2019 Technique: Noncontrast axial scans were obtained from skull base to the vertex. Coronal and sagittal reconstructions obtained from the axial data. One or more of the following dose reduction techniques were used: Automated exposure control, adjustment of the mA and/or kV according to patient size, and/or utilization of iterative reconstruction technique. Beam hardening artifacts obscure some details. DISCUSSION: Scalp/Skull: Unremarkable. Brain sulci: Mildly prominent. Ventricles: Compensatory dilatation. Extra-axial spaces: No masses or fluid collections. Carotid siphon calcifications are present. Parenchyma: Mild bilateral deep white matter hypodensity is likely chronic microvascular ischemic change. Otherwise, no masses, hemorrhage, or large vascular territory acute infarct. Dural sinuses: No abnormal densities. Sellar/Suprasellar region: Intact. Skull base: Intact. Incidental findings: Bilateral ocular lens replacement. IMPRESSION: 1. No acute intracranial abnormalities. 2. Mild supratentorial chronic microvascular ischemic change. Mild generalized cerebral volume loss. Signed by: Dr. Joon Marin M.D. 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 CT brain ordered to evaluate for weakness. UA (+) for infection with elevated Creatinine. Plan to admit to the hospital for observation. Assessment & Plan Final Impression: (1) Hypertensive urgency (2) Renal insufficiency (3) UTI (urinary tract infection) Depart Disposition: ADMITTED Last Vital Signs Date Time Temp Pulse Resp B/P (MAP) Pulse Ox O2 Delivery O2 Flow Rate FiO2 11/07/19 15:43 98.0 83 18 141/73 (95) 99 11/07/19 08:59 Room Air Home Meds Reported Medications Levocetirizine Dihydrochloride (LEVOCETIRIZINE DIHYDROCHLORIDE) 5 Mg Tablet, 5 MG PO HS 11/06/19 Metoprolol Succinate (METOPROLOL SUCCINATE) 50 Mg Tab.er.24h, 50 MG PO DAILY, MG 11/06/19 Minocycline Hcl (MINOCYCLINE HCL) 50 Mg Capsule, 100 MG PO BID for PRO, #60 TAB 09/01/19 Donepezil Hcl (DONEPEZIL HCL) 10 Mg Tablet, 10 MG PO HS 08/31/19 [Folic acid] No Conflict Check, 1 MG PO DAILY 08/31/19 Albuterol Sulfate (Proair Digihaler) 90 Mcg Aer.pw.bas, 0.09 MG INH QID PRN for WHEEZING 08/31/19 Thiamine HCl (B-1) 100 Mg Tablet, 100 MG PO DAILY 08/31/19 Ubidecarenone (COQ-10) 100 Mg Capsule, 100 MG PO DAILY 08/31/19 Levothyroxine Sodium (LEVOTHYROXINE SODIUM) 75 Mcg Tablet, 75 MCG PO DAILY, #30 TAB 08/31/19 [place]-3 Fatty Acids/Fish Oil ([place] 3 FISH OIL SOFTGEL) 1 Each Capsule.dr, 1000 MG PO DAILY 06/03/19 Tramadol Hcl* (ULTRAM 50MG*) 50 Mg Tab, 50 MG PO TID PRN for MODERATE PAIN (4- 6), TAB 06/03/19 Docusate Sodium (COLACE) 100 Mg Cap, 100 MG PO DAILY PRN for CONSTIPATION, #30 CAP 06/03/19 Vit C/E/Zn/Coppr/Lutein/Zeaxan (Preservision Areds 2 Softgel) 1 Each Capsule, 1 CAP PO DAILY 06/03/19 Pantoprazole Sodium* (PROTONIX) 40 Mg Tablet.dr, 40 MG PO Q12H, TAB 06/03/19 Nifedipine (NIFEDIPINE ER) 30 Mg Tab.er.24, 30 MG PO HS 06/03/19 Rosuvastatin Calcium (CRESTOR) 10 Mg Tab, 10 MG PO DAILY THERAPEUTICALLY SUBSTITUTED WITH SIMVASTATIN 40MG 03/08/17 Gabapentin (GABAPENTIN) 100 Mg Capsule, 100 MG PO TID 03/08/17 Alendronate Sodium (ALENDRONATE SODIUM) 70 Mg Tablet, 70 MG PO weekly 08/03/14 Aspirin (ASPIRIN) 81 Mg Tab.chew, 2 TAB PO DAILY 12/12/13 RICKI REMY DO Nov 06, 2019 09:22
[2019-11-06] MEDS ORDERED: HYDRALAZINE HCL 20 MG/ML VIAL IV NR (09:30)
[2019-11-06] MEDS ORDERED: ASPIRIN 81 MG CHEW TAB PO ONE (09:30)
--- NOTE | 2019-11-06 09:49 | NUR ---
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
[2019-11-06 10:11] LABS: BASOPHILS # (AUTO) 0.1 (0.0-0.1); BASOPHILS % 1.2 % (0.0-1.0); EOSINOPHILS # (AUTO) 0.3 (0.0-0.4); EOSINOPHILS % 3.4 % (0.0-6.0); HEMATOCRIT 40.1 % (34.2-44.1); HEMOGLOBIN 13.2 g/dL (12.0-16.0); LYMPHOCYTES # (AUTO) 1.8 (1.0-3.2); LYMPHOCYTES % 23.2 % (18.0-39.1); MEAN CORPUSCULAR HEMOGLOBIN 29.9 pg (28-32); MEAN CORPUSCULAR HGB CONC 32.9 g/dL (31-35); MEAN CORPUSCULAR VOLUME 90.9 fL (81-99); MONOCYTES # (AUTO) 0.7 (0.2-0.8); MONOCYTES % 8.6 % (4.4-11.3); NEUTROPHILS # (AUTO) 4.8 (2.1-6.9); NEUTROPHILS % 63.2 % (38.7-80.0); PLATELET COUNT 201 x10e3/uL (140-360); RED BLOOD COUNT 4.41 x10e6/uL (3.6-5.1); RED CELL DISTRIBUTION WIDTH 14.1 % (11.7-14.4)
[2019-11-06 10:23] LABS: ALBUMIN 3.6 g/dL (3.5-5.0); ALBUMIN/GLOBULIN RATIO 0.9 (0.8-2.0); ANION GAP 13.4 mmol/L (8-16); CALCIUM 9.5 mg/dL (8.4-10.2); CREATININE, SERUM 1.29 mg/dL (0.57-1.11); POTASSIUM 4.4 mmol/L (3.5-5.1)
--- NOTE | 2019-11-06 10:27 | Diagnostic Imaging Report ---
EXAMINATION: CHEST SINGLE (PORTABLE) INDICATION: ^ERMD ORDER ^Y COMPARISON: Rib series 10/01/2019, CT chest 07/24/2019 FINDINGS: AP view TUBES and LINES: Stable position of a 2-lead pacemaker with leads overlying the right atrial appendage and right ventricle. LUNGS: Lungs are well inflated. Mild increased interstitial lung markings, unchanged. No new consolidations. PLEURA: No pleural effusion or pneumothorax. HEART AND MEDIASTINUM: The cardiomediastinal silhouette is unremarkable. Mild calcifications of the aortic arch. BONES AND SOFT TISSUES: No acute osseous lesion. Soft tissues are unremarkable. UPPER ABDOMEN: No free air under the diaphragm. IMPRESSION: Unchanged mild bilateral interstitial edema. No new consolidations. Signed by: Dr. Angelica Denton M.D. on 11/06/2019 10:24 AM
[2019-11-06 10:30] LABS: CREATINE KINASE MB 1.5 ng/mL (0-5.0)
[2019-11-06 10:44] LABS: CLARITY,URINE CLEAR (CLEAR); COLOR,URINE YELLOW (YELLOW)
[2019-11-06 10:45] LABS: BILIRUBIN,URINE NEGATIVE (NEGATIVE); KETONES,URINE NEGATIVE (NEGATIVE); LEUKOCYTE ESTERASE ,URINE SMALL (NEGATIVE); NITRITE,URINE NEGATIVE (NEGATIVE); PROTEIN,URINE DIPSTICK TRACE (NEGATIVE); URINE UROBILINOGEN 0.2 mg/dL (0.2 - 1)
--- NOTE | 2019-11-06 10:46 | NUR ---
RECEIVED CONSULT FOR PSYCHOSOCIAL ASSESSMENT, CONCERN DUE TO MULTIPLE HOSPITAL ADMISSIONS. SPOKE WITH PT AND HER . PT IS ABLE TO TAKE CARE OF HERSELF AT HOME, SHE IS AMBULATORY, ADMITS HAVING MEMORY ISSUES. PT TAKES HER MEDS HERSELF, THINKS SHE IS COMPLIANT, HE REMINDS HER OR ASKS HER IF SHE TOOK HER MEDS. SUGGESTED PILL BOX, WILL GET ONE. SAID PT HAS FALLEN COUPLE OF TIMES, MAY BE GETTING WEAK. NO OTHER CONCERNS REPORTED.
--- NOTE | 2019-11-06 10:59 | Diagnostic Imaging Report ---
CT BRAIN WO HISTORY: Unsteady gait, weakness, high blood pressure COMPARISON: Head CT 10/01/2019 and brain MRI 06/29/2019 Technique: Noncontrast axial scans were obtained from skull base to the vertex. Coronal and sagittal reconstructions obtained from the axial data. One or more of the following dose reduction techniques were used: Automated exposure control, adjustment of the mA and/or kV according to patient size, and/or utilization of iterative reconstruction technique. Beam hardening artifacts obscure some details. DISCUSSION: Scalp/Skull: Unremarkable. Brain sulci: Mildly prominent. Ventricles: Compensatory dilatation. Extra-axial spaces: No masses or fluid collections. Carotid siphon calcifications are present. Parenchyma: Mild bilateral deep white matter hypodensity is likely chronic microvascular ischemic change. Otherwise, no masses, hemorrhage, or large vascular territory acute infarct. Dural sinuses: No abnormal densities. Sellar/Suprasellar region: Intact. Skull base: Intact. Incidental findings: Bilateral ocular lens replacement. IMPRESSION: 1. No acute intracranial abnormalities. 2. Mild supratentorial chronic microvascular ischemic change. Mild generalized cerebral volume loss. Signed by: Dr. Joon Marin M.D. on 11/06/2019 10:56 AM
[2019-11-06 11:01] LABS: BACTERIA,URINE FEW /HPF; EPITHELIAL CELLS,URINE MODERATE /LPF; RBC,URINE 0-5 /HPF (0-5)
[2019-11-06] MEDS ORDERED: SODIUM CHLORIDE FLUSH 10 ML SYR INJ PRN (11:15)
[2019-11-06] MEDS ORDERED: HYDRALAZINE HCL 20 MG/ML VIAL IV PRN (11:15)
[2019-11-06] MEDS ORDERED: ONDANSETRON HCL INJ 2MG/ML 2ML 2 MG/ML VIAL IV NR (12:06)
[2019-11-06] MEDS: CIPROFLOXACIN 400 MG/D5W 200ML 200 ML IV SCH (12:09)
[2019-11-06] MEDS ORDERED: ONDANSETRON HCL INJ 2MG/ML 2ML 2 MG/ML VIAL ONE (12:11)
--- NOTE | 2019-11-06 12:28 | NUR ---
covid swab done
[2019-11-06] MEDS ORDERED: DOCUSATE SODIUM 100 MG CAP PO PRN (13:45)
[2019-11-06] MEDS ORDERED: ACETAMINOPHEN 325 MG TAB PO PRN (13:45)
[2019-11-06] MEDS ORDERED: ONDANSETRON HCL INJ 2MG/ML 2ML 2 MG/ML VIAL IV PRN (13:45)
--- NOTE | 2019-11-06 14:53 | NUR ---
talked with dr lorenzo regarding pt.
[2019-11-06] MEDS ORDERED: LORAZEPAM 0.5 MG TAB PO PRN (15:15)
[2019-11-06] MEDS ORDERED: LORAZEPAM INJ 2 MG/ML VIAL IV NR ×2 (15:15→18:05)
[2019-11-06] MEDS ORDERED: LORAZEPAM INJ 2 MG/ML VIAL ONE ×2 (15:30→18:00)
[2019-11-06] MEDS: SODIUM CHLORIDE 0.9% 1000ML 1,000 ML IV SCH ×2 (15:37→18:42)
--- NOTE | 2019-11-06 16:18 | History and Physical ---
CHIEF COMPLAINT: Dehydration, generalized weakness. HISTORY OF PRESENT ILLNESS: An 84-year-old female, very poor historian. Apparently, has been here several times over the last one year, has baseline dementia, who was recently discharged back in September due to having a mechanical fall due to a syncopal episode, now presents with generalized weakness, needing further evaluation and management. After further discussion with the nursing staff as the not at bedside, seems that the is unable to take care of his anymore. The patient seems to have some underlying anxiety as well as some baseline dementia. Of note, she gets confused occasionally. No reports of any cough, congestion, or any fever. No recent travel. Today, her dropped her off in the ER and left the ER facility. The patient is being admitted for underlying dehydration and probable UTI. Also, the patient likely needs some sort of placement for further assistance. REVIEW OF SYSTEMS: Generalized weakness. Unable to obtain the rest of 14-point review of systems as the patient is currently very anxious and likely be at her baseline. ALLERGIES: PENICILLINS. HOME MEDICATIONS: Alendronate, aspirin, Colace, gabapentin, levothyroxine, minocycline, nifedipine, fish oral, Protonix, pravastatin, thiamine, tramadol, Aricept. PAST MEDICAL HISTORY: Dementia, peripheral neuropathy, hypothyroidism, hypertension, hyperlipidemia, osteoporosis, chronic pain. PAST SURGICAL HISTORY: Unable to obtain. FAMILY HISTORY: Unable to obtain. SOCIAL HISTORY: She is . No drugs. No alcohol. Unknown for children. PHYSICAL EXAMINATION: VITAL SIGNS: Temperature is 97.5, pulse 67, respirations 17, blood pressure 136/75, and pulse ox 100% on room air. GENERAL: Alert, awake, not oriented, seems to be very confused. HEENT: Head; normocephalic, atraumatic. Eyes; pupils are equal, round, and reactive to light bilaterally. PULMONARY: Clear to auscultation bilaterally. No wheezing, no rales, no rhonchi, no crackles appreciated. CARDIOVASCULAR: Positive S1 and S2. No murmurs, rubs, or gallops appreciated. ABDOMEN: Soft, nondistended, and nontender to palpation. Bowel sounds present. MUSCULOSKELETAL: The patient is moving all extremities. She move cooperatively for examination. NEUROLOGIC: She is alert. She is awake. Not able to complete full examination. SKIN: Intact. Warm to touch. Good cap refill. PSYCHIATRIC: Baseline dementia. EXTREMITIES: No edema. Good range of motion throughout. LABORATORY DATA: Labs show white count 7.5, hemoglobin 13, hematocrit 40, and platelets of 201. Chemistry; sodium 140, potassium 4.4, chloride 108, bicarb 23, anion gap of 13, BUN 17, creatinine 1.29, calcium is 9.5, glucose 105. LFTs within normal range. CK is 69. Troponin 0.022. BNP 150. Total protein 7.6. Urinalysis; found to be negative. Coronavirus PCR is pending. IMPRESSION: 1. Generalized weakness, likely secondary to dehydration. 2. Alzheimer's dementia. 3. Hypertension. 4. Probable urinary tract infection. 5. Medical noncompliance. PLAN: At this time, CT brain was found to be negative. Chest x-ray was found to be normal. Just mild pulmonary edema. The patient clinically looks dehydrated. We will go ahead and add a low-dose IV fluids for hydration. Resume same home medications. is at bedside for me to talk with them about the overall plan of care, but from the nursing staff in the ER seems like the is just needed a break and brought her in and left here in the hospital. I will go ahead and add a low-dose Ativan p.r.n. for anxiety. May need to get Psychiatry involved as well. Continue with IV fluids. Monitor electrolytes very closely. Lovenox for DVT prophylaxis. Otherwise, I discussed the plan of care with nursing staff and the patient at bedside and they verbalized understanding. MD PASTOR Taveras/GROVER /[id number]
[2019-11-06] MEDS ORDERED: CIPROFLOXACIN 400 MG/D5W 200ML 200 ML IV SCH (17:00)
[2019-11-06] MEDS ORDERED: ENOXAPARIN SOD INJ 40 MG/0.4 ML SYR SC SCH (17:00)
--- NOTE | 2019-11-06 17:44 | NUR ---
spoke to AOMariam Farah about allowing to come and sit with patient, since she is demented and becomes aggressive off and on.
--- NOTE | 2019-11-06 18:05 | NUR ---
per dr vieyra, edel one to one ordered. rbvo. notified charge and leti washhouse hand for order. asked if spouse could stay, but stated she could not make that call, she would have to call Sruthi NOBLE. pt to floor
[2019-11-06 19:57] VITALS: BP_SYST 182; BP_DIAS 77; BP_DIAS 86
--- NOTE | 2019-11-06 20:00 | NUR ---
Patient received asleep in bed. at bedside. Arousable to tactile stimuli. Patient had no signs of pain. Respirations even and non-labored. Admission history obtained from . Initial physical assessment performed. Patient's oriented to room, call light and plan of care. Safety measures in place. Patient's instructed to call for assistance when needed. Call light within reach.
[2019-11-06] MEDS ORDERED: METOPROLOL SUCC50 MG PO (20:16)
[2019-11-06] MEDS ORDERED: LEVOCETIRIZINE D5 MG PO (20:16)
[2019-11-06 20:30] VITALS: BP 182/77
[2019-11-06 20:45] LABS: CREATINE KINASE MB 1.5 ng/mL (0-5.0)
[2019-11-06 21:00] VITALS: BP 182/77
[2019-11-06] MEDS ORDERED: DONEPEZIL HCL 5 MG TAB PO SCH (21:00)
[2019-11-07] VITALS: BP 129/61
[2019-11-07] MEDS: CIPROFLOXACIN 400 MG/D5W 200ML 200 ML IV SCH ×2 (00:54→12:56)
[2019-11-07 04:52] VITALS: BP 138/70
[2019-11-07 05:46] LABS: BASOPHILS # (AUTO) 0.1 (0.0-0.1); BASOPHILS % 1.1 % (0.0-1.0); EOSINOPHILS # (AUTO) 0.2 (0.0-0.4); EOSINOPHILS % 3.7 % (0.0-6.0); HEMATOCRIT 36.8 % (34.2-44.1); HEMOGLOBIN 11.9 g/dL (12.0-16.0); LYMPHOCYTES # (AUTO) 1.4 (1.0-3.2); LYMPHOCYTES % 21.8 % (18.0-39.1); MEAN CORPUSCULAR HEMOGLOBIN 29.8 pg (28-32); MEAN CORPUSCULAR HGB CONC 32.3 g/dL (31-35); MEAN CORPUSCULAR VOLUME 92.2 fL (81-99); MONOCYTES # (AUTO) 0.6 (0.2-0.8); MONOCYTES % 9.2 % (4.4-11.3); NEUTROPHILS # (AUTO) 4.2 (2.1-6.9); NEUTROPHILS % 63.9 % (38.7-80.0); PLATELET COUNT 201 x10e3/uL (140-360); RED BLOOD COUNT 3.99 x10e6/uL (3.6-5.1); RED CELL DISTRIBUTION WIDTH 14.3 % (11.7-14.4)
[2019-11-07 06:21] LABS: CREATINE KINASE MB 1.1 ng/mL (0-5.0)
[2019-11-07] MEDS ORDERED: LORAZEPAM INJ 2 MG/ML VIAL IV ONE ×2 (06:30→10:51)
--- NOTE | 2019-11-07 06:30 | NUR ---
Patient getting confused, agitated , attempting to pull out her IV and get out of bed. Dr. Anaya notified. New order received for Ativan 0.5 mg IV x1. Also, a new order for Jh Mcarthur as Consult.
[2019-11-07 06:38] LABS: ALBUMIN/GLOBULIN RATIO 0.9 (0.8-2.0); CALCIUM 8.9 mg/dL (8.4-10.2); CREATININE, SERUM 1.2 mg/dL (0.57-1.11)
--- NOTE | 2019-11-07 07:00 | NUR ---
Patient resting comfortably. Walking rounds done. Shift report given regarding patient's status.
--- NOTE | 2019-11-07 07:00 | NUR ---
RECEIVED PATIENT RESTING IN BED NO S/S OF DISTRESS. BED LOW, WHEELS LOCKED, SIDE RAILS X2. CALL LIGHT IN REACH WILL CONTINUE TO MONITOR PATIENT.
[2019-11-07 07:53] VITALS: BP 160/72
[2019-11-07 08:22] VITALS: BP 160/72
[2019-11-07 11:37] VITALS: BP 141/65
--- NOTE | 2019-11-07 13:55 | NUR ---
PATIENT DISORIENTED PULLED OUT IV. CATHETER TIP INTACT. PRESSURE DRESSING APPLIED. PATIENT SITTING IN CHAIR.
--- NOTE | 2019-11-07 15:15 | NUR ---
PATIENTS AT BEDSIDE. DR. AVILA MAKING ROUNDS DISCUSSING PLAN OF CARE.
[2019-11-07] MEDS ORDERED: QUETIAPINE FUMARATE 25 MG TAB PO SCH (15:30)
[2019-11-07 15:43] VITALS: BP 141/73
--- NOTE | 2019-11-07 15:50 | NUR ---
PATIENT DISCHARGED FROM FACILITY. PATIENT GATHERED ALL PERSONAL BELONGINGS, DISCHARGE INSTRUCTIONS AND FOLLOW UP INFORMATION. PATIENT LEFT UNIT IN WHEELCHAIR AND WENT HOME VIA PRIVATE AUTO.
--- NOTE | 2019-11-08 04:40 | Discharge Summary ---
FINAL DISCHARGE DIAGNOSES: 1. Alzheimer dementia with behavioral disturbances. 2. Hypertension. 3. Acute kidney injury secondary to dehydration. 4. Generalized weakness-resolved. CONSULTANTS: None. PHYSICAL EXAMINATION: VITAL SIGNS: Temperature is 98, pulse 83, respirations 18, blood pressure 141/73, and pulse ox 99% on room air. LABORATORY DATA: Show white count 6.5, hemoglobin 11.9, hematocrit 36.8, and platelets of 201. Chemistry, sodium 143, potassium 4, chloride 110, bicarb 23, anion gap of 13, BUN 15, creatinine 1.2, glucose is 97, and calcium is 8.9. Total bilirubin is 0.6, AST 23, ALT 13, and alkaline phosphatase 68. Troponins were all negative. Total protein 6.4 and albumin 3. Urinalysis negative, negative nitrite, small amounts of leukocyte esterase, wbc's 6-10. Serology, coronavirus PCR negative. Her specific gravity was found to be elevated at 1.030, consistent with dehydration. She also has significant amount of epithelial cells. Few bacteria noted. Microbiology, none. IMAGING STUDIES: CT of brain, no acute intracranial abnormalities, mild supratentorial chronic microvascular ischemic changes, and mild generalized cerebral volume loss. Chest x-ray unchanged, mild bilateral interstitial edema, no new consolidations. HOSPITAL COURSE: An 84-year-old female, who has baseline dementia, comes into the ED with reported elevated blood pressure readings at home. The patient was admitted for further evaluation under observation. After further investigation, it seems that the has difficult time taking care of his due to her dementia and occasional behavioral disturbances. I had a long conversation with the patient, , and the patient's daughter by phone and I talked with them about the overall findings. After further discussion, it seems that the patient has had significant amount of dementia, of note has been following up with a neurologist and takes Aricept at home. Apparently, she has been in her usual state of mind, but occasionally she will get very confused and have some sundowning. While here, her UA was negative, no consistency of any infection, white count normal, no fever. CT of the brain was negative. Her blood pressure was stable. After further discussion, it seems that the occasionally has difficult time taking care of his . At this time, he has agreed to take his home, and I have also discussed this with the patient's daughter and she understands that she will take her mother home. I advised and recommended for them to stay an additional day to have Psychiatry adjust some medications by adding some Seroquel, but the family refused. Currently, she is alert, she is awake, she is vivid, and she is not combative. The family agreed to be discharged to home. Her labs were stable. Imaging studies were stable. She was cleared for discharge. On the day of discharge, vital signs were stable, labs reviewed and stable. The patient was seen, evaluated, and examined thoroughly on the day of discharge, no other complaints. The patient verbalized understanding and agrees to plan of care to follow up as an outpatient with the PCP in 1 week and the urologist in 1 to 2 weeks' time. Once again, the family agreed to take the patient home. She is currently stable, awake, alert, and oriented, occasionally she does get combative, but she has improved tremendously. It seems that the patient likely has some underlying sundowning and does not do well in different environments. After I discussed that with the family, they seem to have agreed and agree that she is best at home in her normal home environment. I recommended Psychiatry to come and evaluate the patient for possible initiation of Seroquel, but the patient's family refused. Information has been provided to the family about follow with psychiatrist as an outpatient. We also advised for them to follow up with her primary neurologist. They verbalized understanding. MEDICATIONS: See med reconciliation form. DISPOSITION: Home. CONDITION: Stable. DIET: Heart healthy. In the event of any worsening symptoms, the patient was advised to come back to the ED for further evaluation. Discharge summary took greater than 35 minutes. MD PASTOR Taveras/GROVER /[id number]
== END 2019-11-07 15:50 | disposition home or self-care (01) ==
LOC: ER 09:13 → ERHOLD 11:07 → MED/SURG2 18:32
PROVIDERS: ADMIT Internal Medicine; ATTEND Internal Medicine
DX: I16.0 Hypertensive urgency (principal); N17.9 Acute kidney failure, unspecified; E03.9 Hypothyroidism, unspecified; Z95.810 Presence of automatic (implantable) cardiac defibrillator; K21.9 Gastro-esophageal reflux disease without esophagitis; Z87.440 Personal history of urinary (tract) infections; E78.5 Hyperlipidemia, unspecified; Z85.43 Personal history of malignant neoplasm of ovary; Z85.41 Personal history of malignant neoplasm of cervix uteri; Z96.653 Presence of artificial knee joint, bilateral; Z88.0 Allergy status to penicillin; E86.0 Dehydration; G30.9 Alzheimer's disease, unspecified; Z91.19 Patient's noncompliance with other medical treatment and regimen; F02.81 Dementia in other diseases classified elsewhere, unspecified severity, with behavioral disturbance; Z11.59 Encounter for screening for other viral diseases
CPT/HCPCS: 36415 ×2; 70450; 71045; 80053 ×2; 81001; 82550 ×2; 82553 ×2; 83880; 84484 ×2; 85025 ×2; 87635; 93005; 99285; G0378 ×2; J0360; J0744 ×2; J1650; J2060 ×2; J2405; J7030

== ENCOUNTER → 2020-02-17 | Day surgery (SDC) | payer MEDICARE, OTHER ==
[2020-02-14 16:29] LABS: BASOPHILS # (AUTO) 0.1 (0.0-0.1); EOSINOPHILS # (AUTO) 0.3 (0.0-0.4); EOSINOPHILS % 4.2 % (0.0-6.0); HEMATOCRIT 35.1 % (34.2-44.1); HEMOGLOBIN 11.4 g/dL (12.0-16.0); LYMPHOCYTES # (AUTO) 1.8 (1.0-3.2); LYMPHOCYTES % 26.1 % (18.0-39.1); MEAN CORPUSCULAR HEMOGLOBIN 30.6 pg (28-32); MEAN CORPUSCULAR HGB CONC 32.5 g/dL (31-35); MEAN CORPUSCULAR VOLUME 94.1 fL (81-99); MONOCYTES # (AUTO) 0.7 (0.2-0.8); MONOCYTES % 9.6 % (4.4-11.3); NEUTROPHILS # (AUTO) 4.2 (2.1-6.9); NEUTROPHILS % 58.8 % (38.7-80.0); PLATELET COUNT 218 x10e3/uL (140-360); RED BLOOD COUNT 3.73 x10e6/uL (3.6-5.1); RED CELL DISTRIBUTION WIDTH 13.2 % (11.7-14.4)
[2020-02-14 16:46] LABS: ANION GAP 13.8 mmol/L (8-16); CALCIUM 8.7 mg/dL (8.4-10.2); CREATININE, SERUM 1.41 mg/dL (0.57-1.11); POTASSIUM 3.8 mmol/L (3.5-5.1)
[~2020-02-17] MED LIST changes: +BUPIVACAINE 0.25% 30ML SDV INJ ONE; +FENTANYL CITRATE/PF 100MCG/2 ML INJ ONE; +LABETALOL HCL 5 MG/ML 20ML VIAL ONE; +LIDOCAINE HCL 1% LOCAL INJ 20 ML VIAL ONE; +LIDOCAINE HCL 2% 30 ML TUBE ONE; +MEMANTINE HCL5 MG PO; +METOPROLOL SUCC50 MG PO; +PROPOFOL IV EMULSION 10 MG/ML 20 ML VIAL ONE
[2020-02-17 12:35] VITALS: BP 165/80
== END | disposition home or self-care (01) ==
LOC: OR 08:28
PROVIDERS: ATTEND Surgery
DX: K64.8 Other hemorrhoids (principal); I49.5 Sick sinus syndrome; E03.9 Hypothyroidism, unspecified; K21.9 Gastro-esophageal reflux disease without esophagitis; I12.9 Hypertensive chronic kidney disease with stage 1 through stage 4 chronic kidney disease, or unspecified chronic kidney disease; N18.9 Chronic kidney disease, unspecified; E78.5 Hyperlipidemia, unspecified; F03.90 Unspecified dementia, unspecified severity, without behavioral disturbance, psychotic disturbance, mood disturbance, and anxiety; Z88.0 Allergy status to penicillin; Z01.810 Encounter for preprocedural cardiovascular examination; Z01.812 Encounter for preprocedural laboratory examination; Z11.59 Encounter for screening for other viral diseases; Z79.82 Long term (current) use of aspirin; Z95.0 Presence of cardiac pacemaker
CPT/HCPCS: 36415; 46260; 71046; 80048; 85025; 88304; 93005; J2001; J2704; J3010; J3490; U0002

== ENCOUNTER 2020-03-12 10:02 | Observation (INO) | payer MEDICARE, OTHER ==
[~2020-03-12] VITALS: Ht 162.6 cm; Wt 61.2 kg
[~2020-03-12 10:02] MED LIST changes: -BUPIVACAINE 0.25% 30ML SDV INJ ONE; -FENTANYL CITRATE/PF 100MCG/2 ML INJ ONE; -LABETALOL HCL 5 MG/ML 20ML VIAL ONE; -LIDOCAINE HCL 1% LOCAL INJ 20 ML VIAL ONE; -LIDOCAINE HCL 2% 30 ML TUBE ONE; -MEMANTINE HCL5 MG PO; -PROPOFOL IV EMULSION 10 MG/ML 20 ML VIAL ONE
--- OUTSIDE RECORDS SUMMARY | 2020-03-12 10:19 | XMS REPORT | Continuity of Care Document ---
Author Author [facility] t Organization [facility] Address [address] [place] [address] Phone Unavailable Care Team Providers Care Outside Sales Account Manager Name Role Phone RENA FERMIN, MD Julio FLORES PCP Susi GREER Attphys Unavailable DAHU, S JIRIES Attphys Unavailable CHASE, M SANDRA Attphys Unavailable Jimmy GAGNON Attphys Unavailable HAMPEL, SHAILA Attphys Unavailable Kurt BROWN Attphys Unavailable Susi ALONSO Attphys Unavailable CANDIDA, David PICKARD Attphys Unavailable DAHU, S JIRIES Admphys Unavailable CHASE, Julio SANDRA Admphys Unavailable Payers Payer Name Policy Type Policy Number Effective Date Expiration Date Mariam childs [facility] [id number] 2019 00:00:00 [facility] Medicare A & B [id number] 2002 00:00:00 [facility] Problems Condition Name Condition Details Condition Category Status Onset Date Resolution Date Last Treatment Date Treating Clinician Comments Source 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 Active 2014-08-03 00:00:00 [facility] Angioedema Angioedema Problem Active 2014-05-10 00:00:00 [facility] Swelling of submandibular region Submandibular swelling Problem Active 2014-05-10 00:00:00 [facility] Altered mental status Altered mental state Problem Active [facility] Urinary tract infection UTI (urinary tract infection) Problem Active [facility] Elevated liver enzymes Elevated liver enzymes Problem Active [facility] Diarrhea Diarrhea Problem Active [facility] Vomiting Vomiting Problem Active [facility] Atrial fibrillation with rapid ventricular response At rial fibrillation with RVR Problem Active [facility] New onset atrial fibrillation New onset a-fib Problem Active [facility] Syncope and collapse Syncope and collapse Problem Active [facility] Chest pain Chest pain Problem Active [facility] Increased serum lipase level Elevated lipase Problem Active [facility] Hypertensive urgency Hypertensive urgency Problem Active [facility] Symptomatic bradycardia Symptomatic bradycardia Problem Active [facility] Weakness Weakness Problem Active [facility] Pre-syncope Problem Active [facility] Fall Problem Active [facility] Dizziness Problem Active [facility] Fracture of rib Problem Active [facility] Allergies, Adverse Reactions, Alerts Allergy Name Allergy Type Status Severity Reaction(s) Onset Date Inacti ve Date Treating Clinician Comments Source Penicillin Allergy to substance Active Mild 2018-11-10 00:00:00 [facility] Social History Social Habit Start Date Stop Date Quantity Comments Source Sex Assigned At 1935 00:00:00 1935 00:00:00 Female [facility] Medications Ordered Medication Name Filled Medication Name Start Date Stop Da te Current Medication? Ordering Clinician Indication Dosage Frequency Signature (SIG) Comments Components Source Nitrofurantoin Monohyd/M-Cryst (Macrobid 100 Mg Capsul e) 100 Mg CAPSULE Nitrofurantoin Monohyd/M-Cryst (Macrobid 100 Mg Capsule) 100 Mg CAPSULE 2019-04-24 10:02:00 2019-07-02 00:00:00 No 100 Twice A Day [facility] Albuterol Sulfate (Proair Digihaler) 90 Mcg AER.PW.BAS Albuterol Sulfate (Proair Digihaler) 90 Mcg AER.PW.BAS Yes .09 Four Times Daily as needed for Wheezing [facility] Alendronate Sodium Alendronate Sodium Yes 70 We ekly [facility] Aspirin Aspirin Yes 2 Daily [facility] Docusate Sodium (Colace) 100 Mg CAP Docusate Sodium (Colace) 100 Mg C AP Yes 100 Daily as needed for Constipation [facility] Donepezil Hcl Donepezil Hcl Yes 10 Bedtime [facility] Folic Acid Folic Acid Yes 1 Daily [facility] Gabapentin Gabapentin Yes 100 Three Times A Day [facility] Levocetirizine Dihydrochloride Levocetirizine Dihydrochloride Yes 5 Bedtime [facility] Levothyroxine Sodium Levothyroxine Sodium Yes 75 Daily [facility] Metoprolol Succinate Metoprolol Succinate Yes 50 Daily [facility] Minocycline Hcl Minocycline Hcl Yes 100 Twice A Day for Pro [facility] Nifedipine (Nifedipine Er) 30 Mg TAB.ER.24 Nifedipine (Nifedipine Er) 30 Mg TAB.ER.24 Yes 30 Bedtime [facility] [place]-3 Fatty Acids/Fish Oil ([place] 3 Fish Oil Softgel ) 1 Each CAPSULE. [place]- 3 Fatty Acids/Fish Oil ([place] 3 Fish Oil Softgel) 1 Each CAPSULE. Yes 1000 Daily [facility] Pantoprazole Sodium (Protonix) 40 Mg TABLET. Pantopr azole Sodium (Protonix) 40 Mg TABLET. Yes 40 Every 12 Hours [facility] Rosuvastatin Calcium (Crestor) 10 Mg TAB Rosuvastatin Calcium (Crestor) 10 Mg TAB Yes 10 Daily [facility] Thiamine Hcl (B-1) 100 Mg TABLET Thiamine Hcl (B-1) 100 Mg TABLET Yes 100 Daily [facility] Tramadol Hcl (Ultram 50MG*) 50 Mg TAB Tramadol Hcl (Ultram 50MG*) 5 0 Mg TAB Yes 50 Three Times A Day as needed for Moderate Pain (4-6) [facility] Ubidecarenone (Coq-10) 100 Mg CAPSULE Ubidecarenone (Coq-10) 100 Mg CAPSULE Yes 100 Daily [facility] Vit C/E/Zn/Coppr/Lutein/Zeaxan (Preservision Areds 2 S oftgel) 1 Each CAPSULE Vit C/E/Zn/Coppr/Lutein/Zeaxan (Preservision Areds 2 Softgel) 1 Each CAPSULE Yes 1 Daily [facility] Fluconazole Fluconazole 2019-09-01 00:00:00 No 100 [facility] Meclizine Hcl Meclizine Hcl 2019-09-01 00:00:00 No 12.5 Daily [facility] Meloxicam Meloxicam 2019-09-01 00:00:00 No 15 Daily as needed for Mild Pain (1-3) [facility] Montelukast Sodium Montelukast Sodium 2019-09-01 00:00:00 No 10 Daily [facility] Nitrofurantoin Macrocrystal (Nitrofurantoin) 100 Mg CA PSULE Nitrofurantoin Macrocrystal (Nitrofurantoin) 100 Mg CAPSULE 2019-09-01 00:00:00 No 100 [facility] Levocetirizine Dihydrochloride Levocetirizine Dihydrochloride 2019-08-31 00:00:00 No 5 Bedtime [facility] Levothyroxine Sodium Levothyroxine Sodium 2019-08-31 00:00:00 No 75 Daily [facility] Ubidecarenone (Coq10) 50 Mg TAB.CHEW Ubidecarenone (Coq10) 50 Mg TAB.CHEW 2019-08-31 00:00:00 No 100 Daily [facility] Donepezil Hcl (Aricept) 5 Mg TABLET Donepezil Hcl (Aricept) 5 Mg TABLET 2019-07-02 00:00:00 No 5 Bedtime [facility] Hydralazine Hcl Hydralazine Hcl 2019-07-02 00:00:00 No 25 Twice A Day as needed for Prn [facility] Meclizine Hcl Meclizine Hcl 2019-07-02 00:00:00 No 25 As Needed [facility] Meloxicam Meloxicam 2019-07-02 00:00:00 No 15 Daily as needed for Prn [facility] Albuterol Sulfate (Proair Hfa Inhaler*) 8.5 Gm INH Alb uterol Sulfate (Proair Hfa Inhaler*) 8.5 Gm INH 2019-06-03 00:00:00 No 1 As Needed [facility] Amlodipine Besylate Amlodipine Besylate 2019-06-03 00:00:00 No 10 Bedtime [facility] Fluticasone Propionate Fluticasone Propionate 2019-06-03 00:00:00 No Daily [facility] Hydralazine Hcl Hydralazine Hcl 2019-06-03 00:00:00 No 50 Three Times A Day [facility] Meclizine Hcl Meclizine Hcl 2017-09-01 00:00:00 No [facility] Baclofen Baclofen 2017-03-14 00:00:00 No 10 Three T imes A Day [facility] Meloxicam Meloxicam 2017-03-11 00:00:00 No 15 Daily [facility] Cetirizine Hcl Cetirizine Hcl 2017-03-08 00:00:00 No 10 Daily [facility] Fluticasone Propionate (Flonase) 16 Gm SPRAY.SUSP Flut icasone Propionate (Flonase) 16 Gm SPRAY.SUSP 2017-03-08 00:00:00 No 16 Daily [facility] Levofloxacin (Levaquin) 500 Mg TABLET Levofloxacin (Levaquin) 50 0 Mg TABLET 2017-03-08 00:00:00 No 500 Daily [facility] Loratadine Loratadine 2017-03-08 00:00:00 No 10 Jayna ly [facility] Antivert Antivert 2017-01-14 00:00:00 No As Need ed [facility] Areds Areds 2017-01-14 00:00:00 No 2 Twice A Day [facility] Nitrofurantoin Macrocrystal (Nitrofurantoin) 100 Mg CA PSULE Nitrofurantoin Macrocrystal (Nitrofurantoin) 100 Mg CAPSULE 2017-01-14 00:00:00 No 100 Twice A Day [facility] Furosemide Furosemide 2017-01-12 00:00:00 No 20 Chiquis ry Other Day [facility] Prednisone Prednisone 2017-01-12 00:00:00 No 5 Twi ce A Day [facility] Ciprofloxacin Hcl (Cipro) 500 Mg TABLET Ciprofloxacin Hcl (C ipro) 500 Mg TABLET 2014-08-05 00:00:00 No 500 Every 12 Hours [facility] Cholecalciferol (Vitamin D3) (Vitamin D) 1,000 Unit [place] BLET Cholecalciferol (Vitamin D3) (Vitamin D) 1,000 Unit TABLET 2014-03-19 00:00:00 No 1000 Daily [facility] Lidocaine (Lidoderm) 700 Mg ADH..PATCH Lidocaine (Lidoderm) 700 Mg ADH..PATCH 2014-03-19 00:00:00 No 1 12HOURS [facility] Lisinopril Lisinopril 2014-03-19 00:00:00 No 20 Twi ce A Day [facility] Tizanidine Hcl (Zanaflex) 2 Mg CAPSULE Tizanidine Hcl (Zanaflex) 2 Mg CAPSULE 2014-03-19 00:00:00 No 2 Every 12 Hours [facility] Vit A,C & E/Lutein/Minerals (Ocuvite Tablet) 1 Each TA BLET Vit A,C & E/Lutein/Minerals (Ocuvite Tablet) 1 Each TABLET 2014-03-19 00:00:00 N o 1 Daily [facility] Niacin Niacin 2013-12-14 00:00:00 No 500 Daily [facility] Rosuvastatin Calcium (Crestor) 10 Mg TAB Rosuvastatin Calcium (Crestor) 10 Mg TAB 2013-12-14 00:00:00 No 10 Daily [facility] Vital Signs Vital Name Observation Time Observation Value Comments Source Body Temperature 2019-11-07 15:43:00 98.0 [degF] [facility] Weight 2019-11-07 04:53:00 128.25 [lb_av] [facility] BMI (Body Mass Index) 2019-11-07 04:53:00 20.1 kg/m2 [facility] Body Temperature 2019-10-02 13:00:00 99.6 [degF] [facility] BMI (Body Mass Index) 2019-10-01 20:59:00 22.6 kg/m2 [facility] Weight 2019-10-01 15:23:00 136 [lb_av] [facility] Procedures Procedure Date / Time Performed Performing Clinician [facility] Computed tomography of brain without radiopaque contrast 2019-10 00:00:00 [facility] Computed tomography of brain without radiopaque contrast 2019-09 00:00:00 [facility] Computed tomography of cervical spine without contrast 8 00:00:00 [facility] INSERT PACE. DUAL SATISH IN CHEST SUBCU/FASCIA, OPEN 2019-08-31 00 :00:00 [facility] INSERTION OF PACEMAKER LEAD INTO RIGHT ATRIUM, PERC AP PROACH 2019-08-31 00:00:00 [facility] INSERTION OF PACEMAKER LEAD INTO R VENTRICLE, PERC APPROACH 2019-08-31 00:00:[address] [facility] [address] angiography of chest 2019-07-24 00:00:00 HAWA GAGNON [facility] Computed tomography angiography of abdom en and pelvis without then with contrast 2019-07-24 00:00:00 HAWA GAGNON [facility] CYSTOSCOPY & URETER CATHETER 2019-07-21 00:00:00 [facility] REMOVE ANAL FIST SUBQ 2019-07-16 00:00:00 [facility] X-ray of chest, two views 2019-07-15 00:00:00 ROSA GREER [facility] Magnetic resonance imaging of brain without contrast 2019-06 00:00:00 ILANA PALMER [facility] CT angiography of neck 2019-06-29 00:00:00 ILANA PALMER [facility] Computed tomography angiography of brain 2019-06-29 00:00:00 ILANA CARTER [facility] Computed tomography of brain without radiopaque contrast 202 00:00:00 RENA SANDRA [facility] Ultrasound, renal 2019-06-22 00:00:00 SHAILA LANDA [facility] INCISION OF ANAL SPHINCTER 2019-06-03 00:00:00 [facility] Computed tomography of abdomen and pelvis with contrast 2018 00:00:00 GIRISH BROWN [facility] Plan of Care Planned Activity Planned Date Details Comments Source Instructions Hypertension [facility] Encounters Start Date/Time End Date/Time Encounter [facility] Encounter ID Source 2019-10-01 17:59:00 2019-10-02 15:18:00 Discharged Inpatient (obs) 1 GAETANO AVILA [facility] [id number] [facility] 2019-08-30 21:57:00 2019-09-01 12:07:00 Discharged Inpatient 1 SANDRA CHASE [facility] [id number] [facility] 2019-07-24 17:01:00 2019-07-24 22:33:00 Departed Emergency Room 1 KALIN HAWA [facility] [id number] [facility] 2019-07-21 08:45:00 2019-07-21 08:45:00 Registered Surgical Day Care [facility] [id number] [facility] 2019-07-16 08:52:00 2019-07-16 08:52:00 Registered Surgical Day Car e 3 ROSA GREER [facility] [id number] [facility] 2019-06-27 15:13:00 2019-07-02 12:50:00 Discharged Inpatient 1 SANDRA CHASE [facility] [id number] [facility] 2019-06-22 14:20:00 2019-06-22 14:20:00 Registered Clinic 3 SHAILA GAMEZ [facility] [id number] [facility] 2019-06-03 05:26:00 2019-06-03 05:26:00 Registered Surgical Day Care [facility] [id number] [facility] 2019-05-04 08:42:00 2019-05-25 22:59:00 Discharged Recurring [facility] [id number] [facility] 2019-05-22 08:53:00 2019-05-22 09:23:00 Departed Emergency Room [facility] [id number] [facility] 2019-05-12 05:07:00 2019-05-12 09:37:00 Departed Emergency Room [facility] [id number] [facility] 2019-04-24 07:27:00 2019-04-24 11:14:00 Departed Emergency Room [facility] [id number] [facility] 2019-04-15 07:35:00 2019-04-15 11:07:00 Departed Emergency Room 1 GIRISH BROWN [facility] [id number] [facility] 2018-11-10 05:53:00 2018-11-11 11:15:00 Discharged Inpatient (obs) 1 FELICITY ALONSO [facility] [id number] [facility] 2018-05-21 13:09:00 2018-05-21 20:57:00 Departed Emergency Room 1 GIRISH BROWN [facility] [id number] [facility] 2018-01-30 09:12:00 2018-01-30 09:12:00 Registered Clinic 3 SANDRA ARITA [facility] [id number] [facility] 2017-09-01 08:23:00 2017-09-01 11:00:00 Departed Emergency Room [facility] [id number] [facility] 2017-03-13 13:26:00 2017-03-14 10:42:00 Discharged Inpatient (obs) ER NEERAJ TIRADO [facility] [id number] [facility] 2017-03-08 10:13:00 2017-03-11 11:11:00 Discharged Inpatient ER [facility] [id number] [facility] 2017-01-12 18:40:00 2017-01-14 11:30:00 Discharged Inpatient ER RENA [facility] [id number] [facility] Results Test Description Test Time Test Comments Results Result Comments Source CHEST 2 VIEWS 2020-02-14 17:19:00 [place] [address] Patient Name: YUE RAMSEY MR #: [id number] : 1935 Age/Sex: 84/F Req #: [id number] Adm Physician: Ordered by: ROSA GREER MD Report #: [id number] Location: OR Room/Bed: Procedure: [id number] DX/CHEST 2 VIEWS Exam Date: 02/14/20 Exam Time: 1650 REPORT STATUS: Signed EXAMINATION: CHEST 2 VIEWS INDICATION: Preop. COMPARISON: Multiple prior chest radiographs including most recent on 11/06/2019. FINDINGS: TUBES and LINES: Double lead cardiac pacemaker overlying the left chest wall. LUNGS: Normal lung volumes. Redemonstration of increased interstitial lung markings. No consolidations. There is new nodular density projecting over the left rib adjacent to the cardiac pacemaker. PLEURA: No pleural effusion or pneumothorax. HEART AND MEDIASTINUM: The cardiomediastinal silhouette is unremarkable. BONES AND SOFT TISSUES: No acute osseous lesion. Soft tissues are unremarkable. UPPER ABDOMEN: No free air under the diaphragm. IMPRESSION: 1. New nodular density projecting over the left rib adjacent to the cardiac pacemaker. This may represent callus from healing rib fracture, sclerotic bony changes or pulmonary nodule. Recommend chest CT with contrast for further evaluation of this finding. 2. Redemonstration of prominent interstitial markings which may represent chronic lung scarring versus pulmonary edema. Signed by: Majo Pepe MD on 02/14/2020 5:39 PM Dictated By: MAJO PEPE MD 38 Transcribed By: GELY on 02/14/201738 COPY TO: ROSA GREER MD Blood leukocytes automated count (number/volume) 2019-11-07 05:00:00 Test Item White Blood Count (test code = 6690-2) 6.51 4.8-10.8 [facility] count (number/volume)2019-11-07 05:00:00* Test Item Value Reference Range Interpretation Comments Red Blood Count (test code = 789-8) 3.99 3.6-5.1 [facility] measurement (moles/volume)2019-11-07 05:00:00* Test Item Value Reference Range Interpretation Comments Hemoglobin (test code = 82017-1) 11.9 12.0-16.0 [facility] hematocrit (volume fraction)2019-11-07 05:00:00* Test Item Value Reference Range Interpretation Comments Hematocrit (test code = 4544-3) 36.8 34.2-44.1 [facility] eryth[facility] mean corpuscular [id number] 05:00:00* Test Item Value Reference Range Interpretation Comments Mean Corpuscular Volume (test code = 787-2) 92.2 81-99 [facility] mean corpuscular hemoglobin (mass per erythrocyte)2019-11-07 05:00:00* Test Item Value Reference Range Interpretation Comments Mean Corpuscular Hemoglobin (test code = 785-6) 29.8 28-32 [facility] eryth[facility] mean corpuscular hemoglobin concentration measurement (mass/volume)2019-11-07 05:00:00* Test Item Value Reference Range Interpretation Comments Mean Corpuscular Hemoglobin Concent (test code = 786-4) 32.3 31-35 [facility] Hospital[facility]DW [id number] 05:00:00* Test Item Value Reference Range Interpretation Comments Red Cell Distribution Width (test code = 32684-3) 14.3 11.7 -14.4 [facility]Aut[facility]ed blood platelet count (count/volume)2019-11-07 05:00:00* Test Item Value Reference Range Interpretation Comments Platelet Count (test code = 777-3) 201 140-360 [facility] segmented neutrophil count as percentage of total [id number] 05:00:00* Test Item Value Reference Range Interpretation Comments Neutrophils (%) (Auto) (test code = 67057-1) 63.9 38.7-80.0 [facility] lymphocyte count as percentage ot total [id number] 05:00:00* Test Item Value Reference Range Interpretation Comments Lymphocytes (%) (Auto) (test code = 736-9) 21.8 18.0-39.1 [facility] monocyte count as percentage of total [id number] 05:00:00* Test Item Value Reference Range Interpretation Comments Monocytes (%) (Auto) (test code = 5905-5) 9.2 4.4-11.3 [facility] blood eosinophil count as percentage of total [id number] 05:00:00* Test Item Value Reference Range Interpretation Comments Eosinophils (%) (Auto) (test code = 713-8) 3.7 0.0-6.0 [facility] basophil count as percentage of total [id number] 05:00:00* Test Item Value Reference Range Interpretation Comments Basophils (%) (Auto) (test code = 706-2) 1.1 0.0-1.0 [facility] HospitalFluoroscopic procedure less than one hour [id number] 05:00:00* Test Item Value Reference Range Interpretation Comments IM GRANULOCYTES % (test code = IM GRANULOCYTES %) 0.3 0.0- 1.0 [facility] neutrophil count 2019-11-07 05:00:00* Test Item Value Reference Range Interpretation Comments Neutrophils # (Auto) (test code = 751-8) 4.2 2.1-6.9 [facility] lymphocytes count (number/volume) 2019-11-07 05:00:00* Test Item Value Reference Range Interpretation Comments Lymphocytes # (Auto) (test code = 00979-0) 1.4 1.0-3.2 [facility] monocytes automated count (number/volume)2019-11-07 05:00:00* Test Item Value Reference Range Interpretation Comments Monocytes # (Auto) (test code = 742-7) 0.6 0.2-0.8 [facility] blood eosinophil count 2019-11-07 05:00:00* Test Item Value Reference Range Interpretation Comments Eosinophils # (Auto) (test code = 711-2) 0.2 0.0-0.4 [facility] blood basophil count (count/volume)2019-11-07 05:00:00* Test Item Value Reference Range Interpretation Comments Basophils # (Auto) (test code = 704-7) 0.1 0.0-0.1 [facility] HospitalFluoroscopic procedure less than one hour [id number] 05:00:00* Test Item Value Reference Range Interpretation Comments Absolute Immature Granulocyte (auto (anjali t code = Absolute Immature Granulocyte (auto) 0.02 0-0.1 [facility] sodium measurement (moles/volume)2019-11-07 05:00:00* Test Item Value Reference Range Interpretation Comments Sodium Level (test code = 2951-2) 142 136-145 [facility] potassium measurement (moles/volume)2019-11-07 05:00:00* Test Item Value Reference Range Interpretation Comments Potassium Level (test code = 2823-3) 4.0 3.5-5.1 [facility] plasma chloride measurement (moles/volume)2019-11-07 05:00:00* Test Item Value Reference Range Interpretation Comments Chloride Level (test code = 2075-0) 110 98-107 [facility] plasma carbon dioxide, total measurement (moles/volume)2019-11-07 05:00:00* Test Item Value Reference Range Interpretation Comments Carbon Dioxide Level (test code = 2028-9) 23 22-29 [facility] plasma anion [id number] 05:00:00* Test Item Value Reference Range Interpretation Comments Anion Gap (test code = 82471-6) 13.0 8-16 [facility] urea nitrogen measurement (mass/volume)2019-11-07 05:00:00* Test Item Value Reference Range Interpretation Comments Blood Urea Nitrogen (test code = 3094-0) 15 7-26 [facility] creatinine measurement (mass/volume)2019-11-07 05:00:00* Test Item Value Reference Range Interpretation Comments Creatinine (test code = 2160-0) 1.20 0.57-1.11 [facility] plasma urea nitrogen/creatinine mass [id number] 05:00:00* Test Item Value Reference Range Interpretation Comments BUN/Creatinine Ratio (test code = 3097-3) 13 6-25 [facility] HospitalEstimated glomerular filtration rate (GFR) gbhotzqjksguh3003-43-93 05:00:00* Test Item Value Reference Range Interpretation Comments Estimat Glomerular Filtration Rate (test code = 753284215) 43 >60 Ranges were taken from the National Kidney Disease Education Program and the [facility] literature.Reference ranges:60 or greater: Yctasb34-14 ( for 3 consecutive months): Chronic kidney disease 15 or less: Kidney failureTexas Children's HospitalGlucose vabfppbswmv4264-63-85 05:00:00* Test Item Value Reference Range Interpretation Comments Glucose Level (test code = AFQ6763) 97 74-118 [facility] calcium measurement (mass/volume)2019-11-07 05:00:00* Test Item Value Reference Range Interpretation Comments Calcium Level (test code = 21719-5) 8.9 8.4-10.2 [facility]er[facility] plasma total bilirubin measurement (mass/volume)2019-11-07 05:00:00* Test Item Value Reference Range Interpretation Comments Total Bilirubin (test code = 1975-2) 0.6 0.2-1.2 [facility] HospitalFluoroscopic procedure less than one hour dijhyodv0336-07-33 05:00:00* Test Item Value Reference Range Interpretation Comments Aspartate Amino Transf (AST/SGOT) (test code = Aspartate Amino Transf (AST/SGOT)) 23 5-34 [facility] Hospitalerum or plasma alanine aminotransferase measurement (enzymatic activity/volume)2019-11-07 05:00:00* Test Item Value Reference Range Interpretation Comments Alanine Aminotransferase (ALT/SGPT) (test code = 1742-6) 13 0-55 [facility]er[facility] or plasma protein measurement (mass/volume)2019-11-07 05:00:00* Test Item Value Reference Range Interpretation Comments Total Protein (test code = 2885-2) 6.4 6.5-8.1 [facility]er[facility] or plasma albumin measurement (mass/volume)2019-11-07 05:00:00* Test Item Value Reference Range Interpretation Comments Albumin (test code = 1751-7) 3.0 3.5-5.0 [facility] HospitalPlasma globulin measurement (mass/volume) 2019-11-07 05:00:00* Test Item Value Reference Range Interpretation Comments Globulin (test code = 16710-3) 3.4 2.3-3.5 [facility]er[facility] or plasma albumin/globulin mass zandr9067-16-03 05:00:00* Test Item Value Reference Range Interpretation Comments Albumin/Globulin Ratio (test code = 1759-0) 0.9 0.8-2.0 [facility]er[facility] or plasma alkaline phosphatase measurement (enzymatic activity/volume)2019-11-07 05:00:00* Test Item Value Reference Range Interpretation Comments Alkaline Phosphatase (test code = 6768-6) 68 40-150 [facility]erum or plasma creatine kinase measurement (enzymatic activity/volume)2019-11-07 05:00:00* Test Item Value Reference Range Interpretation Comments Creatine Kinase (test code = 2157-6) 54 29-168 [facility] Hospitalerum or plasma creatine kinase MB measurement (mass/volume)2019-11-07 05:00:00* Test Item Value Reference Range Interpretation Comments Creatine Kinase MB (test code = 47942-3) 1.10 0-5.0 [facility] HospitalTroponin I measurement by highly sensitive enzyme kswuegobdsv7829-82-38 05:00:00* Test Item Value Reference Range Interpretation Comments Troponin I (test code = 53278-7) 0.012 0-0.300 [facility] HospitalCT BRAIN [id number] 10:44:00 [facility] [address] [place] [address] Patient Name: YUE RAMSEY MR #: [id number] : 1935 Age/Sex: 84/F Req #: [id number] Adm Physician: Ordered by: RICKI REMY DO Report #: [id number] Location: ER Room/Bed: Procedure: [id number] CT/CT BRAIN W O Exam Date: 11/06/19 Exam Time: 1013 REPORT STATUS: Signed CT BRAIN WO HISTORY : Unsteady gait, weakness, high blood pressure COMPARISON: Head CT 0 and brain MRI 06/29/2019 Technique: Noncontrast axial scans were obtaine d from skull base to the vertex. Coronal and sagittal reconstructions obtaine d from the axial data. One or more of the following dose reduction techniques were used: Automated exposure control, adjustment of the mA and/or kV accordi ng to patient size, and/or utilization of iterative reconstruction technique. Beam hardening artifacts obscure some details. DISCUSSION: Scalp/Sku ll: Unremarkable. Brain sulci: Mildly prominent. Ventricles: Compensatory di latation. Extra-axial spaces: No masses or fluid collections. Carotid siphon calcifications are present. Parenchyma: Mild bilateral deep white matte r hypodensity is likely chronic microvascular ischemic change. Otherwise, n o masses, hemorrhage, or large vascular territory acute infarct. Dural sinu ses: No abnormal densities. Sellar/Suprasellar region: Intact. Skull base: Intact. Incidental findings: Bilateral ocular lens replacement. IMPRESSIO N: 1. No acute intracranial abnormalities. 2. Mild supratentorial chronic microvascular ischemic change. Mild generalized cerebral volume loss. Signed by: Dr. Joon Marin M.D. on 11/06/2019 10:56 AM Dictated By: ADRIENNE MARIN MD 105 6 Transcribed By: GELY on 11/06/19 1056 COPY TO: RICKI REMY DO [facility] SINGLE (PORTABLE)2019-11-06 10:22:00 [place] [address] Patient Name: YUE RAMSEY MR #: [id number] : 1935 Age/Sex: 84/F Req #: [id number] Adm Physician: GAETANO AVILA MD Ordered by: RICKI REMY DO Report #: [id number] Location: MED/SURG2 Room/Bed: [facility] Procedure: [id number] DX/CHEST SING LE (PORTABLE) Exam Date: 11/06/19 Exam Time: 1003 REPORT STATUS: Signed EXAMINATION: CHEST SINGLE (PORTABLE) INDICATION: ERMD ORDER Y COMPARISON: Rib series 10/01/2019, CT chest 07/24/2019 FINDINGS: AP v iew TUBES and LINES: Stable position of a 2-lead pacemaker with leads o verlying the right atrial appendage and right ventricle. LUNGS: Lungs ar e well inflated. Mild increased interstitial lung markings, unchanged. No n ew consolidations. PLEURA: No pleural effusion or pneumothorax. HEART AND MEDIASTINUM: The cardiomediastinal silhouette is unremarkable. Mild calc ifications of the aortic arch. BONES AND SOFT TISSUES: No acute osseous lesion. Soft tissues are unremarkable. UPPER ABDOMEN: No free air under the diaphragm. IMPRESSION: Unchanged mild bilateral interstitial cain ma. No new consolidations. Signed by: Dr. Angelica Lagunas M.D. on 11/06/2019 10:24 AM Dictated By: ANGELICA LAGUNAS MD Elect ronically Signed By: ANGELICA LAGUNAS MD on 11/06/19 1024 Transcribed By : GELY on 11/06/19 1024 COPY TO: RICKI REMY DO Urine color mnazwskrgxlta9853-90-53 09:40:00* Test Item Value Reference Range Interpretation Comments Urine Color (test code = 5778-6) YELLOW YELLOW [facility] HospitalUrine scswwwa4586-61-85 09:40:00* Test Item Value Reference Range Interpretation Comments Urine Clarity (test code = 37825-5) CLEAR CLEAR [facility] Hospitalpecific gravity of Urine by Test strip 2019-11-06 09:40:00* Test Item Value Reference Range Interpretation Comments Urine Specific [place] (test code = 5811-5) >=1.030 1.010-1.02 5 [facility] HospitalUrine pH measurement by automated test nkjsd7452-95-06 09:40:00* Test Item Value Reference Range Interpretation Comments Urine pH (test code = 65179-7) 6 5-7 [facility] HospitalUrine leukocyte esterase detection by xyhxjhvx0548-10-88 09:40:00* Test Item Value Reference Range Interpretation Comments Urine Leukocyte Esterase (test code = 5799-2) SMALL NEGATIVE [facility] HospitalUrine nitrite mlddvtcue6906-31-81 09:40:00* Test Item Value Reference Range Interpretation Comments Urine Nitrite (test code = 25996-3) NEGATIVE NEGATIVE [facility] HospitalUrine protein measurement by test strip (mass/volume)2019-11-06 09:40:00* Test Item Value Reference Range Interpretation Comments Urine Protein (test code = 5804-0) TRACE NEGATIVE [facility] HospitalUrine glucose dgxqgbnpz1432-83-17 09:40:00* Test Item Value Reference Range Interpretation Comments Urine Glucose (UA) (test code = 2349-9) NEGATIVE NEGATIVE [facility] HospitalUrine ketones detection by automated test ntcju6474-64-11 09:40:00* Test Item Value Reference Range Interpretation Comments Urine Ketones (test code = 34565-2) NEGATIVE NEGATIVE [facility] HospitalUrine urobilinogen measurement by test strip (mass/volume)2019-11-06 09:40:00* Test Item Value Reference Range Interpretation Comments Urine Urobilinogen (test code = 84551-1) 0.2 0.2-1 [facility] HospitalUrine total bilirubin measurement (mass/volume)2019-11-06 09:40:00* Test Item Value Reference Range Interpretation Comments Urine Bilirubin (test code = 1978-6) NEGATIVE NEGATIVE [facility] HospitalUrine erythrocytes bpsxeygde5766-81-97 09:40:00* Test Item Value Reference Range Interpretation Comments Urine Blood (test code = 24840-9) TRACE NEGATIVE [facility] HospitalAutomated urine sediment leukocyte count by microscopy (number/high power field)2019-11-06 09:40:00* Test Item Value Reference Range Interpretation Comments Urine WBC (test code = 5821-4) 6-10 0-5 [facility] HospitalErythrocytes detection in urine sediment by light nzjypmryzz6968-54-95 09:40:00* Test Item Value Reference Range Interpretation Comments Urine RBC (test code = 29099-7) 0-5 0-5 [facility] HospitalBacteria detection in urine sediment by light xnptuijdve8338-91-28 09:40:00* Test Item Value Reference Range Interpretation Comments Urine Bacteria (test code = 72610-5) FEW NONE [facility] HospitalEpithelial cells detection in urine sediment by light tfjzvwmyeb6834-35-42 09:40:00* Test Item Value Reference Range Interpretation Comments Urine Epithelial Cells (test code = 57028-2) MODERATE NONE [facility] HospitalBNP Qnu-iFtc5935-35-13 09:40:00* Test Item Value Reference Range Interpretation Comments B-Type Natriuretic Peptide (test code = 59255-5) 150.3 0-100 [facility] HospitalBlood leukocytes automated count (number/volume)2019-10-02 06:30:00* Test Item Value Reference Range Interpretation Comments White Blood Count (test code = 6690-2) 6.30 4.8-10.8 [facility] HospitalBlood erythrocytes automated count (number/volume)2019-10-02 06:30:00* Test Item Value Reference Range Interpretation Comments Red Blood Count (test code = 789-8) 3.57 3.6-5.1 [facility] HospitalBlood hemoglobin measurement (moles/volume)2019-10-02 06:30:00* Test Item Value Reference Range Interpretation Comments Hemoglobin (test code = 81743-7) 10.6 12.0-16.0 [facility] HospitalAutomated blood hematocrit (volume fraction)2019-10-02 06:30:00* Test Item Value Reference Range Interpretation Comments Hematocrit (test code = 4544-3) 32.9 34.2-44.1 [facility] HospitalAutomated erythrocyte mean corpuscular ntajnl8053-23-06 06:30:00* Test Item Value Reference Range Interpretation Comments Mean Corpuscular Volume (test code = 787-2) 92.2 81-99 [facility] HospitalAutomated erythrocyte mean corpuscular hemoglobin (mass per erythrocyte)2019-10-02 06:30:00* Test Item Value Reference Range Interpretation Comments Mean Corpuscular Hemoglobin (test code = 785-6) 29.7 28-32 [facility] HospitalAutomated erythrocyte mean corpuscular hemoglobin concentration measurement (mass/volume)2019-10-02 06:30:00* Test Item Value Reference Range Interpretation Comments Mean Corpuscular Hemoglobin Concent (test code = 786-4) 32.2 31-35 [facility] HospitalRDW NvwHj-Jqs0107-92-09 06:30:00* Test Item Value Reference Range Interpretation Comments Red Cell Distribution Width (test code = 27418-9) 15.2 11.7 -14.4 [facility] HospitalAutomated blood platelet count (count/volume)2019-10-02 06:30:00* Test Item Value Reference Range Interpretation Comments Platelet Count (test code = 777-3) 182 140-360 [facility] HospitalAutcritical access hospitaled blood segmented neutrophil count as percentage of total ujfbfycqye6015-16-91 06:30:00* Test Item Value Reference Range Interpretation Comments Neutrophils (%) (Auto) (test code = 42314-2) 79.6 38.7-80.0 [facility] HospitalAutomated blood lymphocyte count as percentage ot total gcmjcgxomk0531-59-38 06:30:00* Test Item Value Reference Range Interpretation Comments Lymphocytes (%) (Auto) (test code = 736-9) 6.2 18.0-39.1 [facility] HospitalAutomated blood monocyte count as percentage of total ycvokwmhvd2843-46-64 06:30:00* Test Item Value Reference Range Interpretation Comments Monocytes (%) (Auto) (test code = 5905-5) 9.0 4.4-11.3 [facility] HospitalAutomated blood eosinophil count as percentage of total gajwjqmceq1433-43-08 06:30:00* Test Item Value Reference Range Interpretation Comments Eosinophils (%) (Auto) (test code = 713-8) 4.1 0.0-6.0 [facility] HospitalAutomated blood basophil count as percentage of total xlraegyqbz2476-49-22 06:30:00* Test Item Value Reference Range Interpretation Comments Basophils (%) (Auto) (test code = 706-2) 0.6 0.0-1.0 [facility] HospitalFluoroscopic procedure less than one hour mqpkhgeq0114-19-53 06:30:00* Test Item Value Reference Range Interpretation Comments IM GRANULOCYTES % (test code = IM GRANULOCYTES %) 0.5 0.0- 1.0 [facility] HospitalAutomated blood neutrophil count 2019-10-02 06:30:00* Test Item Value Reference Range Interpretation Comments Neutrophils # (Auto) (test code = 751-8) 5.0 2.1-6.9 [facility] HospitalBlood lymphocytes count (number/volume) 2019-10-02 06:30:00* Test Item Value Reference Range Interpretation Comments Lymphocytes # (Auto) (test code = 84343-9) 0.4 1.0-3.2 [facility] HospitalBlmonticello hospital monocytes automated count (number/volume)2019-10-02 06:30:00* Test Item Value Reference Range Interpretation Comments Monocytes # (Auto) (test code = 742-7) 0.6 0.2-0.8 [facility] HospitalAutomated blood eosinophil count 2019-10-02 06:30:00* Test Item Value Reference Range Interpretation Comments Eosinophils # (Auto) (test code = 711-2) 0.3 0.0-0.4 [facility] HospitalAutomated blood basophil count (count/volume)2019-10-02 06:30:00* Test Item Value Reference Range Interpretation Comments Basophils # (Auto) (test code = 704-7) 0.0 0.0-0.1 [facility] HospitalFluoroscopic procedure less than one hour pczepbjq1672-73-42 06:30:00* Test Item Value Reference Range Interpretation Comments Absolute Immature Granulocyte (auto (anjali t code = Absolute Immature Granulocyte (auto) 0.03 0-0.1 [facility]er[facility] or plasma sodium measurement (moles/volume)2019-10-02 06:25:00* Test Item Value Reference Range Interpretation Comments Sodium Level (test code = 2951-2) 141 136-145 [facility] Hospitalerum or plasma potassium measurement (moles/volume)2019-10-02 06:25:00* Test Item Value Reference Range Interpretation Comments Potassium Level (test code = 2823-3) 3.7 3.5-5.1 [facility] Hospitaler[facility] or plasma chloride measurement (moles/volume)2019-10-02 06:25:00* Test Item Value Reference Range Interpretation Comments Chloride Level (test code = 2075-0) 112 98-107 [facility] Hospitalerum or plasma carbon dioxide, total measurement (moles/volume)2019-10-02 06:25:00* Test Item Value Reference Range Interpretation Comments Carbon Dioxide Level (test code = 2028-9) 22 22-29 [facility] Hospitalerum or plasma anion yrf3972-65-36 06:25:00* Test Item Value Reference Range Interpretation Comments Anion Gap (test code = 00950-9) 10.7 8-16 [facility]er[facility] or plasma urea nitrogen measurement (mass/volume)2019-10-02 06:25:00* Test Item Value Reference Range Interpretation Comments Blood Urea Nitrogen (test code = 3094-0) 17 7-26 [facility]erum or plasma creatinine measurement (mass/volume)2019-10-02 06:25:00* Test Item Value Reference Range Interpretation Comments Creatinine (test code = 2160-0) 1.08 0.57-1.11 [facility]erum or plasma urea nitrogen/creatinine mass esdsf0890-86-23 06:25:00* Test Item Value Reference Range Interpretation Comments BUN/Creatinine Ratio (test code = 3097-3) 16 6-25 [facility] HospitalEstimated glomerular filtration rate (GFR) taxdjldjspkia8570-36-03 06:25:00* Test Item Value Reference Range Interpretation Comments Estimat Glomerular Filtration Rate (test code = 859175851) 49 >60 Ranges were taken from the National Kidney Disease Education Program and the [facility] literature.Reference ranges:60 or greater: Yilmfh97-09 ( for 3 consecutive months): Chronic kidney disease 15 or less: Kidney failureTexas Children's HospitalGlucose bieiuqnnkkp2782-99-97 06:25:00* Test Item Value Reference Range Interpretation Comments Glucose Level (test code = OTV8562) 106 74-118 [facility]er[facility] or plasma calcium measurement (mass/volume)2019-10-02 06:25:00* Test Item Value Reference Range Interpretation Comments Calcium Level (test code = 32591-9) 8.0 8.4-10.2 [facility]erum or plasma total bilirubin measurement (mass/volume)2019-10-02 06:25:00* Test Item Value Reference Range Interpretation Comments Total Bilirubin (test code = 1975-2) 0.6 0.2-1.2 [facility] HospitalFluoroscopic procedure less than one hour pdopyuba3623-69-22 06:25:00* Test Item Value Reference Range Interpretation Comments Aspartate Amino Transf (AST/SGOT) (test code = Aspartate Amino Transf (AST/SGOT)) 19 5-34 [facility] Hospitalerum or plasma alanine aminotransferase measurement (enzymatic activity/volume)2019-10-02 06:25:00* Test Item Value Reference Range Interpretation Comments Alanine Aminotransferase (ALT/SGPT) (test code = 1742-6) 10 0-55 [facility] Hospitalerum or plasma protein measurement (mass/volume)2019-10-02 06:25:00* Test Item Value Reference Range Interpretation Comments Total Protein (test code = 2885-2) 5.7 6.5-8.1 [facility] Hospitalerum or plasma albumin measurement (mass/volume)2019-10-02 06:25:00* Test Item Value Reference Range Interpretation Comments Albumin (test code = 1751-7) 2.7 3.5-5.0 [facility] HospitalPlasma globulin measurement (mass/volume) 2019-10-02 06:25:00* Test Item Value Reference Range Interpretation Comments Globulin (test code = 52005-8) 3.0 2.3-3.5 [facility] Hospitalerum or plasma albumin/globulin mass mthhz2619-51-80 06:25:00* Test Item Value Reference Range Interpretation Comments Albumin/Globulin Ratio (test code = 1759-0) 0.9 0.8-2.0 [facility] Hospitalerum or plasma alkaline phosphatase measurement (enzymatic activity/volume)2019-10-02 06:25:00* Test Item Value Reference Range Interpretation Comments Alkaline Phosphatase (test code = 6768-6) 64 40-150 [facility] Hospitalerum or plasma creatine kinase measurement (enzymatic activity/volume)2019-10-02 06:25:00* Test Item Value Reference Range Interpretation Comments Creatine Kinase (test code = 2157-6) 79 29-168 [facility] Hospitalerum or plasma creatine kinase MB measurement (mass/volume)2019-10-02 06:25:00* Test Item Value Reference Range Interpretation Comments Creatine Kinase MB (test code = 73261-8) 0.80 0-5.0 [facility] HospitalTroponin I measurement by highly sensitive enzyme vhkgnvohzst5472-47-52 06:25:00* Test Item Value Reference Range Interpretation Comments Troponin I (test code = 79783-9) 0.020 0-0.300 [facility] Hospitalerum or plasma thyrotropin measurement by detection limit <= 0.005 miu/l (units/volume)2019-10-02 06:25:00* Test Item Value Reference Range Interpretation Comments Thyroid Stimulating Hormone (TSH) (test code = 57558-2) 2.554 0.350-4.940 [facility]erum or plasma thyrotropin measurement by detection limit <= 0.005 miu/l (units/volume)2019-10-02 06:25:00* Test Item Value Reference Range Interpretation Comments Thyroid Stimulating Hormone (TSH) (test code = 73902-4) 2.554 0.350-4.940 [facility] HospitalFluoroscopic procedure less than one hour eongxmfu4893-55-70 18:30:00* Test Item Value Reference Range Interpretation Comments Coronavirus (PCR) (test code = Coronavirus (PCR)) NOT DETECTED NOTD ETECTED SARS-COV-2 (COVID19), HIGHRISK, RT-PCRNegative results do not preclude SARS-CoV- 2 infection and should not be used as the sole basis for patient management deci sions. Negative results must be combined with clinical observations, patient his tory, and epidemiological information. Optimum specimen types and timing for pea k viral levels during infections caused by SARS-CoV-2 have not been determined. Collection of multiple specimens ot types of specimens may be necessary to detec t virus. Improper specimen collection and handling, sequence variability under p rimers/probes, or organism present below the limit of detection may lead to fals e negative results. Positive and negative predictive values of testing are highl y dependent on prevalance. False negative test results are more likely when prev alence is high.The expected result is negative (not detected).The SARS-CoV-2 anjali t is intended for the qualitative detection of nucleic acid from SARS-CoV-2 in n asopharyngeal and oropharyngeal swab samples from patients who meet COVID-19 cli nical and or epidemiological criteria. For lower respiratory tract specimens, th e assay is submitted for authoriztion by FDA under an Emergency Use Authorizatio n (EUA). Testing methodology is real time RT-PCR. If received as separate collec tion devices, nasopharygeal and oropharyngeal specimens are combined for analysi s. Additional specimens may be split to a separate accession for analysi and rep orting as this test includes a single unit of service.Test results must be corre lated with clinical presentation and evaluated in the context of other laborator y and epidemiologic data. Test performance can be affected because the epidemiol ogy and clinical spectrum of infection caused by SARS-CoV-2 is not fully known. For example, the optimum types of specimens to collect and when during the cours e of infection these specimens are most likely to contain detectable viral RNA m ay not be known.This test has not been Food and Drug Administration (FDA) cleare d or approved and has been authorized by FDA under an Emergency Use Authorizatio n (EUA). The test is only authorized for the duration of the declaration that ci rcumstances exist justifying the authorization of emergency use of in vitro diag nostic tests for detection and/or diagnosis of SARS-CoV-2 under section 564(b) o f the Act, 21 U.S.C. section 360bbb-3(b)(1), unless the authorization is termina debbie or revoked sooner. [facility] are certified under the C linical Laboratory Improvement Amendments of 1988 (CLIA), 42 U.S.C. section 263a , to perform high complexity tests.Specimen sent to [facility] and testing performed by [facility] [address] [place] [address] [phone] Director: Ramon Quezada M.D.CLIA # [id number] [facility] UNILAT W/RHK4661-61-09 17:25:00 [place] [address] Patient Name: YUE RAMSEY MR #: [id number] : 1935 Age/Sex: 84/F Req #: [id number] Adm Physician: Ordered by: RICKI QUICK SHAMPOO PERSON Report #: [id number] Location: ER Room/Bed: Procedure: [id number] DX/RIBS UN ILAT W/CXR Exam Date: 10/01/19 Exam Time: 1630 REPORT STATUS: Signed Left rib multip le views CPT code: 14857 History: Fall, left rib pain Comparison: None. [...] GELY on 10/01/191726 COPY TO: RICKI QUICK SHAMPOO PERSON PELVIS AP 1-2 JCKXM5320-64-04 17:23:00 [place] [address] Patient Name: YUE RAMSEY MR #: [id number] : 1935 Age/Sex: 84/F Req #: [id number] Adm Physician: Ordered by: RICKI QUICK SHAMPOO PERSON Report #: [id number] Location: ER Room/Bed: Procedure: [id number] DX/PELVIS AP 1-2 VIEWS Exam Date: 10/01/19 Exam Time: 1629 REPORT STATUS: Signed Pelvis C PT code: 18753 Indication: fall [id number] Technique: A.P . view of the pelvis [...] y: GELY on 10/01/191723 COPY TO: RICKI UQICK SHAMPOO PERSON CT CERVICAL SPINE [id number] 16:54:00 [place] [address] Patient Name: YUE RAMSEY MR #: [id number] : 1935 Age/Sex: 84/F Req #: [id number] Adm Physician: GAETANO AVILA MD Ordered by: RICKI QUICK SHAMPOO PERSON Report #: [id number] Location: [facility] Room/Bed: [place] [address] Procedure: [id number] CT/CT CERV ICAL SPINE WO Exam Date: [...] malform ation. Under pneumatization of the bilateral returned goods repairer cells. Cervica l spine CT: Airway: Patent. [...] GELY on 10/01/191918 COPY TO: RICKI QUICK SHAMPOO PERSON CT BRAIN LJ1291-74-04 16:54:00 [place] [address] Patient Name: YUE RAMSEY MR #: [id number] : 1935 Age/Sex: 84/F Req #: [id number] Adm Physician: GAETANO AVILA MD Ordered by: RICKI QUICK SHAMPOO PERSON Report #: [id number] Location: [facility]/Bed: [facility]- Procedure: [id number] CT/CT SHAI Neff WO Exam Date: 10/01/19 [...] one malformation. Under pneumatization of the bilateral returned goods repairer cells. Cervical spine C T: Airway: Patent. [...] HOOVER MD 18 COPY TO: WYATT QUICK NP Prothrombin time (PT) in platelet poor plasma by coagulation ixnyz5971-35-93 15:30:00* Test Item Value Reference Range Interpretation Comments Prothrombin Time (test code = 5902-2) 13.0 11.9-14.5 [facility] Platelet poor plasma by Coagulation rssyt2758-23-97 15:30:00* Test Item Value Reference Range Interpretation Comments Prothromb Time International Ratio (test code = 6301-6) 0.93 Oral Anticoagulant Therapy INR Values:1. Low Intensity Therapy 1.5 - 2.02 . Moderate Intensity Therapy 2.0 - 3.03. High Intensity Therapy(1) 2.5 - 3. 54. High Intensity Therapy(2) 3.0 - 4.05. Panic Value INR > 5.0 [facility] HospitalActivated partial thromboplastin time (aPTT) in platelet poor plasma by coagulation pjfue5265-49-75 15:30:00* Test Item Value Reference Range Interpretation Comments Activated Partial Thromboplast Time (test code = 68464-0) 25.3 23.8-35.5 [facility] HospitalUrine color qcvgflusakgwd1785-03-21 15:30:00* Test Item Value Reference Range Interpretation Comments Urine Color (test code = 5778-6) YELLOW YELLOW [facility] HospitalUrine whsmhmo8755-73-96 15:30:00* Test Item Value Reference Range Interpretation Comments Urine Clarity (test code = 42019-0) SL CLOUDY CLEAR [facility] gravity of Urine by Test strip 2019-10-01 15:30:00* Test Item Value Reference Range Interpretation Comments Urine Specific [place] (test code = 5811-5) 1.020 1.010-1.02 5 [facility] HospitalU[facility] pH measurement by automated test xyswb5171-81-91 15:30:00* Test Item Value Reference Range Interpretation Comments Urine pH (test code = 34495-0) 5.5 5-7 [facility] HospitalUrine leukocyte esterase detection by vwqhsimg4681-17-31 15:30:00* Test Item Value Reference Range Interpretation Comments Urine Leukocyte Esterase (test code = 5799-2) SMALL NEGATIVE [facility] HospitalUrine nitrite jpjmjtzab9098-09-60 15:30:00* Test Item Value Reference Range Interpretation Comments Urine Nitrite (test code = 66563-8) NEGATIVE NEGATIVE [facility] HospitalUrine protein measurement by test strip (mass/volume)2019-10-01 15:30:00* Test Item Value Reference Range Interpretation Comments Urine Protein (test code = 5804-0) NEGATIVE NEGATIVE [facility] HospitalUrine glucose corezacvu1682-87-49 15:30:00* Test Item Value Reference Range Interpretation Comments Urine Glucose (UA) (test code = 2349-9) NEGATIVE NEGATIVE [facility] HospitalUrine ketones detection by automated test sixyo4322-63-11 15:30:00* Test Item Value Reference Range Interpretation Comments Urine Ketones (test code = 47403-6) NEGATIVE NEGATIVE [facility] HospitalUrine urobilinogen measurement by test strip (mass/volume)2019-10-01 15:30:00* Test Item Value Reference Range Interpretation Comments Urine Urobilinogen (test code = 83542-2) 0.2 0.2-1 [facility] HospitalUrine total bilirubin measurement (mass/volume)2019-10-01 15:30:00* Test Item Value Reference Range Interpretation Comments Urine Bilirubin (test code = 1978-6) NEGATIVE NEGATIVE [facility] HospitalUrine erythrocytes vcjavxudf1342-30-86 15:30:00* Test Item Value Reference Range Interpretation Comments Urine Blood (test code = 69414-3) NEGATIVE NEGATIVE [facility] HospitalAutomated urine sediment leukocyte count by microscopy (number/high power field)2019-10-01 15:30:00* Test Item Value Reference Range Interpretation Comments Urine WBC (test code = 5821-4) 6-10 0-5 [facility] HospitalErythrocytes detection in urine sediment by light qcstrfvdwu5760-05-43 15:30:00* Test Item Value Reference Range Interpretation Comments Urine RBC (test code = 40136-0) NONE 0-5 [facility] HospitalBacteria detection in urine sediment by light zxcmxehjgz8718-82-66 15:30:00* Test Item Value Reference Range Interpretation Comments Urine Bacteria (test code = 31367-3) MANY NONE [facility] HospitalEpithelial cells detection in urine sediment by light qevxiitloi0633-88-70 15:30:00* Test Item Value Reference Range Interpretation Comments Urine Epithelial Cells (test code = 27938-3) MANY NONE [facility] HospitalTransitional cells detection in urine sediment by light cfawodnwvt9219-70-00 15:30:00* Test Item Value Reference Range Interpretation Comments Urine Transitional Epithelial Cells (test code = 8249-5) MODERATE NONE [facility] HospitalProthrombin time (PT) in platelet poor plasma by coagulation xkhxr8119-17-07 15:30:00* Test Item Value Reference Range Interpretation Comments Prothrombin Time (test code = 5902-2) 13.0 11.9-14.5 [facility] HospitalINR in Platelet poor plasma by Coagulation mrxtd3688-47-79 15:30:00* Test Item Value Reference Range Interpretation Comments Prothromb Time International Ratio (test code = 6301-6) 0.93 Oral Anticoagulant Therapy INR Values:1. Low Intensity Therapy 1.5 - 2.02 . Moderate Intensity Therapy 2.0 - 3.03. High Intensity Therapy(1) 2.5 - 3. 54. High Intensity Therapy(2) 3.0 - 4.05. Panic Value INR > 5.0 [facility] HospitalActivated partial thromboplastin time (aPTT) in platelet poor plasma by coagulation doesq1649-32-43 15:30:00* Test Item Value Reference Range Interpretation Comments Activated Partial Thromboplast Time (test code = 40092-4) 25.3 23.8-35.5 [facility] HospitalTransitional cells detection in urine sediment by light eqyhfopkvu8167-45-02 15:30:00* Test Item Value Reference Range Interpretation Comments Urine Transitional Epithelial Cells (test code = 8249-5) MODERATE NONE [facility] HospitalThyroid Stimulating Hormone (TSH) 2019-09-01 09:12:00* Test Item Value Reference Range Interpretation Comments Thyroid Stimulating Hormone (TSH) (test code = 05137-9) 1.441 0.350-4.940 [facility] Hospitalodium Hwdkm8644-95-97 06:04:00* Test Item Value Reference Range Interpretation Comments Sodium Level (test code = 2951-2) 142 136-145 [facility] HospitalPotassium Pucgc1810-81-46 06:04:00* Test Item Value Reference Range Interpretation Comments Potassium Level (test code = 2823-3) 4.4 3.5-5.1 [facility] HospitalChloride Awite3147-51-45 06:04:00* Test Item Value Reference Range Interpretation Comments Chloride Level (test code = 2075-0) 111 98-107 H [facility] HospitalCarbon Dioxide Imonn8330-53-36 06:04:00* Test Item Value Reference Range Interpretation Comments Carbon Dioxide Level (test code = 2028-9) 24 22-29 [facility] HospitalAnion Tge3868-09-94 06:04:00* Test Item Value Reference Range Interpretation Comments Anion Gap (test code = 82065-0) 11.4 8-16 [facility] HospitalBlood Urea Chghtank7032-83-33 06:04:00* Test Item Value Reference Range Interpretation Comments Blood Urea Nitrogen (test code = 3094-0) 20 7-26 [facility] HospitalCreatinine2020-04-08 06:04:00* Test Item Value Reference Range Interpretation Comments Creatinine (test code = 2160-0) 1.43 0.57-1.11 H [facility] HospitalBUN/Creatinine Muqyt4686-86-04 06:04:00* Test Item Value Reference Range Interpretation Comments BUN/Creatinine Ratio (test code = 3097-3) 14 6-25 [facility] HospitalEstimat Glomerular Filtration Rate 2019-09-01 06:04:00* Test Item Value Reference Range Interpretation Comments Estimat Glomerular Filtration Rate (test code = 918002798) 35 >60 L Ranges were taken from the National Kidney Disease Education Program and the [facility] Kidney Foundation literature.Reference ranges:60 or greater: Vdfcuk71-32 ( for 3 consecutive months): Chronic kidney disease 15 or less: Kidney failureTexas Children's HospitalGlucose Chhxf0936-54-84 06:04:00* Test Item Value Reference Range Interpretation Comments Glucose Level (test code = TWD7409) 105 74-118 [facility] HospitalCalcium Jrern3713-77-06 06:04:00* Test Item Value Reference Range Interpretation Comments Calcium Level (test code = 53029-6) 8.4 8.4-10.2 [facility] HospitalTotal Chkautrio7932-60-22 06:04:00* Test Item Value Reference Range Interpretation Comments Total Bilirubin (test code = 1975-2) 0.6 0.2-1.2 [facility] HospitalAspartate Amino Transf (AST/SGOT) 2019-09-01 06:04:00* Test Item Value Reference Range Interpretation Comments Aspartate Amino Transf (AST/SGOT) (test code = Aspartate Amino Transf (AST/SGOT)) 20 5-34 [facility] HospitalAlanine Aminotransferase (ALT/SGPT) 2019-09-01 06:04:00* Test Item Value Reference Range Interpretation Comments Alanine Aminotransferase (ALT/SGPT) (test code = 1742-6) 12 0-55 [facility] HospitalTotal Kmixqjd9156-70-67 06:04:00* Test Item Value Reference Range Interpretation Comments Total Protein (test code = 2885-2) 6.4 6.5-8.1 L [facility] HospitalAlbumin2020-04-08 06:04:00* Test Item Value Reference Range Interpretation Comments Albumin (test code = 1751-7) 2.9 3.5-5.0 L [facility] HospitalGlobulin2020-04-08 06:04:00* Test Item Value Reference Range Interpretation Comments Globulin (test code = 85054-9) 3.5 2.3-3.5 [facility] HospitalAlbumin/Globulin Uinxm9972-29-22 06:04:00 * Test Item Value Reference Range Interpretation Comments Albumin/Globulin Ratio (test code = 1759-0) 0.8 0.8-2.0 [facility] HospitalAlkaline Gnevvaaueer1947-82-95 06:04:00* Test Item Value Reference Range Interpretation Comments Alkaline Phosphatase (test code = 6768-6) 82 40-150 [facility] HospitalWhite Blood Rumja2077-81-82 05:57:00* Test Item Value Reference Range Interpretation Comments White Blood Count (test code = 6690-2) 7.30 4.8-10.8 [facility] HospitalRed Blood Plivz7530-00-63 05:57:00* Test Item Value Reference Range Interpretation Comments Red Blood Count (test code = 789-8) 3.75 3.6-5.1 [facility] HospitalHemoglobin2020-04-08 05:57:00* Test Item Value Reference Range Interpretation Comments Hemoglobin (test code = 81638-8) 11.0 12.0-16.0 L [facility] HospitalHematocrit2020-04-08 05:57:00* Test Item Value Reference Range Interpretation Comments Hematocrit (test code = 4544-3) 34.7 34.2-44.1 [facility] HospitalMean Corpuscular Mukjva5435-86-01 05:57:00* Test Item Value Reference Range Interpretation Comments Mean Corpuscular Volume (test code = 787-2) 92.5 81-99 [facility] HospitalMean Corpuscular Tvtkxdyuii0821-78-76 05:57:00* Test Item Value Reference Range Interpretation Comments Mean Corpuscular Hemoglobin (test code = 785-6) 29.3 28-32 [facility] HospitalMean Corpuscular Hemoglobin Concent 2019-09-01 05:57:00* Test Item Value Reference Range Interpretation Comments Mean Corpuscular Hemoglobin Concent (test code = 786-4) 31.7 31-35 [facility] HospitalRed Cell Distribution Uutdl9386-47-79 05:57:00* Test Item Value Reference Range Interpretation Comments Red Cell Distribution Width (test code = 17339-6) 14.9 11.7 -14.4 H [facility] HospitalPlatelet Szhsh9083-69-05 05:57:00* Test Item Value Reference Range Interpretation Comments Platelet Count (test code = 777-3) 221 140-360 [facility] HospitalNeutrophils (%) (Auto)2019-09-01 05:57:00 * Test Item Value Reference Range Interpretation Comments Neutrophils (%) (Auto) (test code = 37630-1) 76.9 38.7-80.0 [facility] HospitalLymphocytes (%) (Auto)2019-09-01 05:57:00 * Test Item Value Reference Range Interpretation Comments Lymphocytes (%) (Auto) (test code = 736-9) 7.9 18.0-39.1 L [facility] HospitalMonocytes (%) (Auto)2019-09-01 05:57:00* Test Item Value Reference Range Interpretation Comments Monocytes (%) (Auto) (test code = 5905-5) 8.5 4.4-11.3 [facility] HospitalEosinophils (%) (Auto)2019-09-01 05:57:00 * Test Item Value Reference Range Interpretation Comments Eosinophils (%) (Auto) (test code = 713-8) 5.9 0.0-6.0 [facility] HospitalBasophils (%) (Auto)2019-09-01 05:57:00* Test Item Value Reference Range Interpretation Comments Basophils (%) (Auto) (test code = 706-2) 0.5 0.0-1.0 [facility] HospitalIM GRANULOCYTES %2019-09-01 05:57:00* Test Item Value Reference Range Interpretation Comments IM GRANULOCYTES % (test code = IM GRANULOCYTES %) 0.3 0.0- 1.0 [facility] HospitalNeutrophils # (Auto)2019-09-01 05:57:00* Test Item Value Reference Range Interpretation Comments Neutrophils # (Auto) (test code = 751-8) 5.6 2.1-6.9 [facility] HospitalLymphocytes # (Auto)2019-09-01 05:57:00* Test Item Value Reference Range Interpretation Comments Lymphocytes # (Auto) (test code = 13306-9) 0.6 1.0-3.2 L [facility] HospitalMonocytes # (Auto)2019-09-01 05:57:00* Test Item Value Reference Range Interpretation Comments Monocytes # (Auto) (test code = 742-7) 0.6 0.2-0.8 [facility] HospitalEosinophils # (Auto)2019-09-01 05:57:00* Test Item Value Reference Range Interpretation Comments Eosinophils # (Auto) (test code = 711-2) 0.4 0.0-0.4 [facility] HospitalBasophils # (Auto)2019-09-01 05:57:00* Test Item Value Reference Range Interpretation Comments Basophils # (Auto) (test code = 704-7) 0.0 0.0-0.1 [facility] HospitalAbsolute Immature Granulocyte (auto 2019-09-01 05:57:00* Test Item Value Reference Range Interpretation Comments Absolute Immature Granulocyte (auto (anjali t code = Absolute Immature Granulocyte (auto) 0.02 0-0.1 [facility] HospitalCreatine Kinase LR5043-71-19 14:19:00* Test Item Value Reference Range Interpretation Comments Creatine Kinase MB (test code = 22783-3) 1.20 0-5.0 [facility] HospitalTroponin U1397-66-91 14:19:00* Test Item Value Reference Range Interpretation Comments Troponin I (test code = 95226-2) 0.012 0-0.300 [facility] HospitalCreatine Rzbsol4208-94-91 14:08:00* Test Item Value Reference Range Interpretation Comments Creatine Kinase (test code = 2157-6) 51 29-168 [facility] HospitalCHEST SINGLE (PORTABLE)2019-08-31 14:05:00 [facility] [address] [place] [address] Patient Name: YUE RAMESY MR #: [id number] : 1935 Age/Sex: 83/F Req #: [id number] Adm Physician: SANDRA CHASE MD Ordered by: KIET BULL MD Report #: [id number] Location: [facility] Room/Bed: [facility] Procedure: [id number] -[id number] DX/CHEST SINGLE (PORTABLE) Exam Date: 08/31/19 Exam Time: 1330 REPORT STATUS: Sig leeroy EXAMINATION: CHEST SINGLE (PORTABLE) INDICATION: Postprocedural COMPARISON: [...] ectronically Signed By: GILLES JIMENEZ MD on 08/31/191406 Transcribed By: GELY on 08/31/191406 COPY TO: KIET BULL MD Triglycerides Pzlxg6931-65-97 03:29:00* Test Item Value Reference Range Interpretation Comments Triglycerides Level (test code = 2571-8) 161 0-149 H [facility] HospitalCholesterol Jhbag2394-46-43 03:29:00* Test Item Value Reference Range Interpretation Comments Cholesterol Level (test code = 2093-3) 207 0-199 H Less than 200 mg/dL Low Hdbc441 - 239 mg/dL Borderline Quww698 m g/dl and greater High Risk [facility] HospitalLDL Bqvzrotspti5895-13-57 03:29:00* Test Item Value Reference Range Interpretation Comments LDL Cholesterol (test code = 2089-1) 135 60-130 H [facility] HospitalHDL Sstudrfiwgn8674-81-53 03:29:00* Test Item Value Reference Range Interpretation Comments HDL Cholesterol (test code = 2085-9) 40 40-60 [facility] HospitalCholesterol/HDL Oxysu1979-60-64 03:29:00 * Test Item Value Reference Range Interpretation Comments Cholesterol/HDL Ratio (test code = 9830-1) 5.2 3.0-3.6 H [facility] Hospitalerum or plasma triglyceride measurement (mass/volume)2019-08-31 02:43:00* Test Item Value Reference Range Interpretation Comments Triglycerides Level (test code = 2571-8) 161 0-149 [facility] Hospitalerum or plasma cholesterol measurement (mass/volume)2019-08-31 02:43:00* Test Item Value Reference Range Interpretation Comments Cholesterol Level (test code = 2093-3) 207 0-199 Less than 200 mg/dL Low Xmrz216 - 239 mg/dL Borderline Igby916 m g/dl and greater High Risk [facility] Hospitalerum or plasma cholesterol in LDL measurement (mass/volume) 2019-08-31 02:43:00* Test Item Value Reference Range Interpretation Comments LDL Cholesterol (test code = 2089-1) 135 60-130 [facility] Hospitalerum or plasma cholesterol in HDL measurement (mass/volume)2019-08-31 02:43:00* Test Item Value Reference Range Interpretation Comments HDL Cholesterol (test code = 2085-9) 40 40-60 [facility] Hospitalerum or plasma total cholesterol/cholesterol in HDL mass carcw1575-99-12 02:43:00* Test Item Value Reference Range Interpretation Comments Cholesterol/HDL Ratio (test code = 9830-1) 5.2 3.0-3.6 [facility] Hospitalerum or plasma triglyceride measurement (mass/volume)2019-08-31 02:43:00* Test Item Value Reference Range Interpretation Comments Triglycerides Level (test code = 2571-8) 161 0-149 [facility] Hospitalerum or plasma cholesterol measurement (mass/volume)2019-08-31 02:43:00* Test Item Value Reference Range Interpretation Comments Cholesterol Level (test code = 2093-3) 207 0-199 Less than 200 mg/dL Low Tksv352 - 239 mg/dL Borderline Qgzv437 m g/dl and greater High Risk [facility] Hospitalerum or plasma cholesterol in LDL measurement (mass/volume) 2019-08-31 02:43:00* Test Item Value Reference Range Interpretation Comments LDL Cholesterol (test code = 2089-1) 135 60-130 [facility] Hospitalerum or plasma cholesterol in HDL measurement (mass/volume)2019-08-31 02:43:00* Test Item Value Reference Range Interpretation Comments HDL Cholesterol (test code = 2085-9) 40 40-60 [facility] Hospitalerum or plasma total cholesterol/cholesterol in HDL mass eokom3240-55-11 02:43:00* Test Item Value Reference Range Interpretation Comments Cholesterol/HDL Ratio (test code = 9830-1) 5.2 3.0-3.6 [facility] HospitalUrine RDD5553-89-91 20:30:00* Test Item Value Reference Range Interpretation Comments Urine WBC (test code = 5821-4) NONE 0-5 [facility] HospitalUrine PDZ9913-32-56 20:30:00* Test Item Value Reference Range Interpretation Comments Urine RBC (test code = 31701-9) 0-5 0-5 [facility] HospitalUrine Eszwvtel3054-18-07 20:30:00* Test Item Value Reference Range Interpretation Comments Urine Bacteria (test code = 34776-7) NONE NONE [facility] HospitalUrine Epithelial Pgdts6055-04-89 20:30:00 * Test Item Value Reference Range Interpretation Comments Urine Epithelial Cells (test code = 98417-2) RARE NONE [facility] HospitalUrine Hkfhv2827-81-66 20:17:00* Test Item Value Reference Range Interpretation Comments Urine Color (test code = 5778-6) YELLOW YELLOW [facility] HospitalUrine Ppepnpw9640-11-36 20:17:00* Test Item Value Reference Range Interpretation Comments Urine Clarity (test code = 27581-9) CLEAR CLEAR [facility] HospitalUrine Specific Angdbab7254-69-04 20:17:00 * Test Item Value Reference Range Interpretation Comments Urine Specific [place] (test code = 5811-5) 1.025 1.010-1.02 5 [facility] HospitalUrine oH2100-29-13 20:17:00* Test Item Value Reference Range Interpretation Comments Urine pH (test code = 03484-1) 7 5-7 [facility] HospitalUrine Leukocyte Bkvdaaeu3318-43-10 20:17:00* Test Item Value Reference Range Interpretation Comments Urine Leukocyte Esterase (test code = 5799-2) NEGATIVE NEGATIVE [facility] HospitalUrine Lwdools0647-07-03 20:17:00* Test Item Value Reference Range Interpretation Comments Urine Nitrite (test code = 47205-4) NEGATIVE NEGATIVE [facility] HospitalUrine Rvioqmv5362-86-46 20:17:00* Test Item Value Reference Range Interpretation Comments Urine Protein (test code = 5804-0) NEGATIVE NEGATIVE [facility] HospitalUrine Glucose (UA)2019-08-30 20:17:00* Test Item Value Reference Range Interpretation Comments Urine Glucose (UA) (test code = 2349-9) NEGATIVE NEGATIVE [facility] HospitalUrine Heixekx6740-17-43 20:17:00* Test Item Value Reference Range Interpretation Comments Urine Ketones (test code = 12957-3) NEGATIVE NEGATIVE [facility] HospitalUrine Nkxojsiiujst5870-54-27 20:17:00* Test Item Value Reference Range Interpretation Comments Urine Urobilinogen (test code = 68021-1) 0.2 0.2-1 [facility] HospitalUrine Ktzzaejnf1717-96-58 20:17:00* Test Item Value Reference Range Interpretation Comments Urine Bilirubin (test code = 1978-6) NEGATIVE NEGATIVE [facility] HospitalUrine Ggfbs7006-51-52 20:17:00* Test Item Value Reference Range Interpretation Comments Urine Blood (test code = 10281-2) NEGATIVE NEGATIVE [facility] HospitalProthrombin Vbgg7978-53-20 19:34:00* Test Item Value Reference Range Interpretation Comments Prothrombin Time (test code = 5902-2) 12.6 11.9-14.5 [facility] HospitalProthromb Time International Ratio 2019-08-30 19:34:00* Test Item Value Reference Range Interpretation Comments Prothromb Time International Ratio (test code = 6301-6) 0.89 Oral Anticoagulant Therapy INR Values:1. Low Intensity Therapy 1.5 - 2.02 . Moderate Intensity Therapy 2.0 - 3.03. High Intensity Therapy(1) 2.5 - 3. 54. High Intensity Therapy(2) 3.0 - 4.05. Panic Value INR > 5.0 [facility] HospitalActivated Partial Thromboplast Time 2019-08-30 19:34:00* Test Item Value Reference Range Interpretation Comments Activated Partial Thromboplast Time (test code = 65705-1) 29.0 23.8-35.5 [facility] HospitalCHEST SINGLE (PORTABLE)2019-08-30 19:30:00 [place] [address] Patient Name: YUE RAMSEY MR #: [id number] : 1935 Age/Sex: 83/F Req #: [id number] Adm Physician: Ordered by: MÓNICA HINDS DO Report #: [id number] Location: ER Room/Bed: Procedure: [id number] 5 DX/CHEST [...] 08/30/191931 COPY TO: MÓNICA HINDS DO Creatine Kohodc9011-83-62 22:58:00* Test Item Value Reference Range Interpretation Comments Creatine Kinase (test code = 2157-6) 20 29-168 L [facility] HospitalCreatine Kinase YJ6233-08-46 22:58:00* Test Item Value Reference Range Interpretation Comments Creatine Kinase MB (test code = 88855-7) 0.40 0-5.0 [facility] HospitalTroponin P3452-61-20 22:58:00* Test Item Value Reference Range Interpretation Comments Troponin I (test code = TFS8014) 0.017 0-0.300 [facility]KEMONG1522[facility]51-66 21:08:00 [facility] [address] [address] Patient Name: YUE RAMSEY MR #: [id number] : 1935 Age/Sex: 83/F Req #: [id number] Adm Physician: Ordered by: HAWA GAGNON MD Report #: [id number] Location: ER Room/Bed: Procedure: [id number] CT/CTA ABD/PELVIS Exam Date: 07/24/19 Exam Time: REPORT STATUS: Signed EXAMINA TION: CT angiography [...] DISCUSSION: CHEST: Vasculature: 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, aortic arch, and great vessel [...] 2127 COPY TO: HAWA GAGNON MD CTA SMFEC9167-70-90 21:08:00 [place] [address] Patient Name: YUE RAMSEY MR #: [id number] : 1935 Age/Sex: 83/F Req #: [id number] Adm Physician: Ordered by: HAWA GAGNON MD Report #: [id number] Location: ER Room/Bed: Procedure: [id number] CT/CTA CHEST Exam Date: 07/24/19 Exam Time: [...] CHEST: Vasculature: Atherosclerotic calcification of t he [place] coronary arteries, aortic arch, and great vessel [...] COPY TO: HAWA GAGNON MD Urine Epithelial Ubxkj0373-96-68 20:41:00* Test Item Value Reference Range Interpretation Comments Urine Epithelial Cells (test code = 40998-6) FEW NONE [facility] HospitalUrine Kilsm2069-43-82 19:52:00* Test Item Value Reference Range Interpretation Comments Urine Color (test code = 5778-6) YELLOW YELLOW [facility] HospitalUrine Pwjhdwj1240-98-45 19:52:00* Test Item Value Reference Range Interpretation Comments Urine Clarity (test code = 43604-1) CLEAR CLEAR [facility] Specific Iqqlrob8083-70-33 19:52:00 * Test Item Value Reference Range Interpretation Comments Urine Specific [place] (test code = 5811-5) 1.015 1.010-1.02 5 [facility] wF8302-19-18 19:52:00* Test Item Value Reference Range Interpretation Comments Urine pH (test code = 93443-0) 7.5 5-7 [facility] Leukocyte Xdofhhqh7180-41-01 19:52:00* Test Item Value Reference Range Interpretation Comments Urine Leukocyte Esterase (test code = 5799-2) NEGATIVE NEGATIVE [facility] Luklzvv6444-27-63 19:52:00* Test Item Value Reference Range Interpretation Comments Urine Nitrite (test code = 49435-2) NEGATIVE NEGATIVE [facility] Soiyxkl3668-80-28 19:52:00* Test Item Value Reference Range Interpretation Comments Urine Protein (test code = 5804-0) NEGATIVE NEGATIVE [facility] Glucose (UA)2019-07-24 19:52:00* Test Item Value Reference Range Interpretation Comments Urine Glucose (UA) (test code = 2349-9) NEGATIVE NEGATIVE [facility] Annblym5149-13-09 19:52:00* Test Item Value Reference Range Interpretation Comments Urine Ketones (test code = 86799-2) NEGATIVE NEGATIVE [facility] Dlfjnwkewffo5506-37-41 19:52:00* Test Item Value Reference Range Interpretation Comments Urine Urobilinogen (test code = 32908-8) 0.2 0.2-1 [facility] Yzpleztdo0563-87-35 19:52:00* Test Item Value Reference Range Interpretation Comments Urine Bilirubin (test code = 1978-6) NEGATIVE NEGATIVE [facility] Igigm6120-11-01 19:52:00* Test Item Value Reference Range Interpretation Comments Urine Blood (test code = 78917-3) NEGATIVE NEGATIVE [facility] VHA6550-59-46 19:52:00* Test Item Value Reference Range Interpretation Comments Urine WBC (test code = 5821-4) 0-5 0-5 [facility] OGA4569-94-92 19:52:00* Test Item Value Reference Range Interpretation Comments Urine RBC (test code = 38244-3) NONE 0-5 [facility] Fpojooch3647-08-74 19:52:00* Test Item Value Reference Range Interpretation Comments Urine Bacteria (test code = 87942-2) RARE NONE [facility] HospitalB-Type Natriuretic Jrlwncn6224-54-62 18:51:00* Test Item Value Reference Range Interpretation Comments B-Type Natriuretic Peptide (test code = 27629-0) 304.7 0-100 H [facility] HospitalB-Type Natriuretic Pcbjwyt3962-51-69 18:51:00* Test Item Value Reference Range Interpretation Comments B-Type Natriuretic Peptide (test code = 36449-4) 304.7 0-100 H [facility] HospitalWhite Blood Qxene2446-26-80 18:49:00* Test Item Value Reference Range Interpretation Comments White Blood Count (test code = 6690-2) 7.87 4.8-10.8 [facility] Blood Ynibi9074-82-36 18:49:00* Test Item Value Reference Range Interpretation Comments Red Blood Count (test code = 789-8) 3.84 3.6-5.1 [facility] HospitalHemoglobin2020-02-29 18:49:00* Test Item Value Reference Range Interpretation Comments Hemoglobin (test code = 42587-8) 11.4 12.0-16.0 L [facility] HospitalHematocrit2020-02-29 18:49:00* Test Item Value Reference Range Interpretation Comments Hematocrit (test code = 4544-3) 35.0 34.2-44.1 [facility] HospitalMean Corpuscular Azlhhb1996-34-58 18:49:00* Test Item Value Reference Range Interpretation Comments Mean Corpuscular Volume (test code = 787-2) 91.1 81-99 [facility] HospitalMean Corpuscular Zpnbhbkhvz0178-19-04 18:49:00* Test Item Value Reference Range Interpretation Comments Mean Corpuscular Hemoglobin (test code = 785-6) 29.7 28-32 [facility] HospitalMean Corpuscular Hemoglobin Concent 2019-07-24 18:49:00* Test Item Value Reference Range Interpretation Comments Mean Corpuscular Hemoglobin Concent (test code = 786-4) 32.6 31-35 [facility] HospitalRed Cell Distribution Mwatz6520-94-40 18:49:00* Test Item Value Reference Range Interpretation Comments Red Cell Distribution Width (test code = 29913-1) 13.4 11.7 -14.4 [facility] HospitalPlatelet Ocvgl0991-32-53 18:49:00* Test Item Value Reference Range Interpretation Comments Platelet Count (test code = 777-3) 260 140-360 [facility] HospitalNeutrophils (%) (Auto)2019-07-24 18:49:00 * Test Item Value Reference Range Interpretation Comments Neutrophils (%) (Auto) (test code = 05342-2) 55.4 38.7-80.0 [facility] HospitalLymphocytes (%) (Auto)2019-07-24 18:49:00 * Test Item Value Reference Range Interpretation Comments Lymphocytes (%) (Auto) (test code = 736-9) 29.5 18.0-39.1 [facility] HospitalMonocytes (%) (Auto)2019-07-24 18:49:00* Test Item Value Reference Range Interpretation Comments Monocytes (%) (Auto) (test code = 5905-5) 9.8 4.4-11.3 [facility] HospitalEosinophils (%) (Auto)2019-07-24 18:49:00 * Test Item Value Reference Range Interpretation Comments Eosinophils (%) (Auto) (test code = 713-8) 4.2 0.0-6.0 [facility] HospitalBasophils (%) (Auto)2019-07-24 18:49:00* Test Item Value Reference Range Interpretation Comments Basophils (%) (Auto) (test code = 706-2) 0.6 0.0-1.0 [facility] HospitalIM GRANULOCYTES %2019-07-24 18:49:00* Test Item Value Reference Range Interpretation Comments IM GRANULOCYTES % (test code = IM GRANULOCYTES %) 0.5 0.0- 1.0 [facility] HospitalNeutrophils # (Auto)2019-07-24 18:49:00* Test Item Value Reference Range Interpretation Comments Neutrophils # (Auto) (test code = 751-8) 4.4 2.1-6.9 [facility] HospitalLymphocytes # (Auto)2019-07-24 18:49:00* Test Item Value Reference Range Interpretation Comments Lymphocytes # (Auto) (test code = 24004-0) 2.3 1.0-3.2 [facility] HospitalMonocytes # (Auto)2019-07-24 18:49:00* Test Item Value Reference Range Interpretation Comments Monocytes # (Auto) (test code = 742-7) 0.8 0.2-0.8 [facility] HospitalEosinophils # (Auto)2019-07-24 18:49:00* Test Item Value Reference Range Interpretation Comments Eosinophils # (Auto) (test code = 711-2) 0.3 0.0-0.4 [facility] HospitalBasophils # (Auto)2019-07-24 18:49:00* Test Item Value Reference Range Interpretation Comments Basophils # (Auto) (test code = 704-7) 0.1 0.0-0.1 [facility] HospitalAbsolute Immature Granulocyte (auto 2019-07-24 18:49:00* Test Item Value Reference Range Interpretation Comments Absolute Immature Granulocyte (auto (anjali t code = Absolute Immature Granulocyte (auto) 0.04 0-0.1 [facility] Jpret1835-53-94 18:48:00* Test Item Value Reference Range Interpretation Comments Sodium Level (test code = 2951-2) 139 136-145 [facility] HospitalPotassium Dlmpf2325-40-07 18:48:00* Test Item Value Reference Range Interpretation Comments Potassium Level (test code = 2823-3) 3.9 3.5-5.1 [facility] HospitalChloride Uldig6610-62-93 18:48:00* Test Item Value Reference Range Interpretation Comments Chloride Level (test code = 2075-0) 108 98-107 H [facility] HospitalCarbon Dioxide Vtuwh9176-92-40 18:48:00* Test Item Value Reference Range Interpretation Comments Carbon Dioxide Level (test code = 2028-9) 23 22-29 [facility] HospitalAnion Llc2119-53-86 18:48:00* Test Item Value Reference Range Interpretation Comments Anion Gap (test code = 69542-5) 11.9 8-16 [facility] HospitalBlood Urea Ckuojhcx5598-54-48 18:48:00* Test Item Value Reference Range Interpretation Comments Blood Urea Nitrogen (test code = 3094-0) 14 7-26 [facility] HospitalCreatinine2020-02-29 18:48:00* Test Item Value Reference Range Interpretation Comments Creatinine (test code = 2160-0) 1.11 0.57-1.11 [facility] HospitalBUN/Creatinine Skwnn8279-87-95 18:48:00* Test Item Value Reference Range Interpretation Comments BUN/Creatinine Ratio (test code = 3097-3) 13 6-25 [facility] HospitalEstimat Glomerular Filtration Rate 2019-07-24 18:48:00* Test Item Value Reference Range Interpretation Comments Estimat Glomerular Filtration Rate (test code = 792574770) 47 >60 L Ranges were taken from the National Kidney Disease Education Program and the [facility] Foundation literature.Reference ranges:60 or greater: Fccheh52-49 ( for 3 consecutive months): Chronic kidney disease 15 or less: Kidney failureTexas Children's HospitalGlucose Nuzwq8648-77-15 18:48:00* Test Item Value Reference Range Interpretation Comments Glucose Level (test code = RXR2770) 104 74-118 [facility] HospitalCalcium Lhqvf7867-98-75 18:48:00* Test Item Value Reference Range Interpretation Comments Calcium Level (test code = 32556-0) 9.5 8.4-10.2 [facility] HospitalTotal Qdrsdzymm4138-71-69 18:48:00* Test Item Value Reference Range Interpretation Comments Total Bilirubin (test code = 1975-2) 0.4 0.2-1.2 [facility] HospitalAspartate Amino Transf (AST/SGOT) 2019-07-24 18:48:00* Test Item Value Reference Range Interpretation Comments Aspartate Amino Transf (AST/SGOT) (test code = Aspartate Amino Transf (AST/SGOT)) 23 5-34 [facility] HospitalAlanine Aminotransferase (ALT/SGPT) 2019-07-24 18:48:00* Test Item Value Reference Range Interpretation Comments Alanine Aminotransferase (ALT/SGPT) (test code = 1742-6) 13 0-55 [facility] HospitalTotal Maaftjt5171-44-53 18:48:00* Test Item Value Reference Range Interpretation Comments Total Protein (test code = 2885-2) 6.7 6.5-8.1 [facility] HospitalAlbumin2020-02-29 18:48:00* Test Item Value Reference Range Interpretation Comments Albumin (test code = 1751-7) 3.1 3.5-5.0 L [facility] HospitalGlobulin2020-02-29 18:48:00* Test Item Value Reference Range Interpretation Comments Globulin (test code = 50453-1) 3.6 2.3-3.5 H [facility] HospitalAlbumin/Globulin Ttnoc2304-54-43 18:48:00 * Test Item Value Reference Range Interpretation Comments Albumin/Globulin Ratio (test code = 1759-0) 0.9 0.8-2.0 [facility] HospitalAlkaline Ddohsfllclp4232-85-00 18:48:00* Test Item Value Reference Range Interpretation Comments Alkaline Phosphatase (test code = 6768-6) 79 40-150 [facility] HospitalProthrombin Qtis5037-00-71 18:47:00* Test Item Value Reference Range Interpretation Comments Prothrombin Time (test code = 5902-2) 13.4 11.9-14.5 [facility] HospitalProthromb Time International Ratio 2019-07-24 18:47:00* Test Item Value Reference Range Interpretation Comments Prothromb Time International Ratio (test code = 6301-6) 0.96 Oral Anticoagulant Therapy INR Values:1. Low Intensity Therapy 1.5 - 2.02 . Moderate Intensity Therapy 2.0 - 3.03. High Intensity Therapy(1) 2.5 - 3. 54. High Intensity Therapy(2) 3.0 - 4.05. Panic Value INR > 5.0 [facility] HospitalActivated Partial Thromboplast Time 2019-07-24 18:47:00* Test Item Value Reference Range Interpretation Comments Activated Partial Thromboplast Time (test code = 79083-7) 25.9 23.8-35.5 [facility] HospitalCHEST SINGLE (PORTABLE)2019-07-24 18:28:00 [place] [address] Patient Name: YUE RAMSEY MR #: [id number] : 1935 Age/Sex: 83/F Req #: [id number] Adm Physician: Ordered by: BHARATHI JOHNSTON SHAMPOO PERSON Report #: [id number] Location: ER Room/Bed: Procedure: [id number] DX/CHEST SINGLE (PORTABLE) Exam Date: 07/24/19 Exam Time: 1820 REPORT STATUS: Signed EXAMINATION: CHEST SINGLE (PORTABLE) COMPARISON: Chest x-ray 07/15/19 INDICATION: Chest pain ERMD ORDER [id number] Y DI SCUSSION: Frontal view of [...] 6:29 PM Dictated By: LOUIS ACOSTA MD 28 Transcribed By: GELY on 07/24/19 1 829 COPY TO: BHARATHI JOHNSTON SHAMPOO PERSON BNP Xrt-yDmv2275-78-29 17:05:00* Test Item Value Reference Range Interpretation Comments B-Type Natriuretic Peptide (test code = 78816-0) 304.7 0-100 [facility] 2 RZLST9286-47-33 14:56:00 [facility] [address] [place] [address] Patient Name: YUE RAMSEY MR #: [id number] : 1935 Age/Sex: 83/F Req #: [id number] Adm Physician: Ordered by: ROSA GREER MD Report #: [id number] Location: OR Room/Bed: Procedure: 42 DX/CHEST 2 VIEWS Exam Date: 07/15/19 Exam Time: 1 430 REPORT STATUS: Signed EXAMIN ATION: CHEST 2 VIEWS INDICATION: PREOP [id number] COMPARISON: None FINDINGS: PA and lateral views [...] STEWART MD 57 Transcribed By: GELY on 07/15/198 COPY TO : ROSA GREER MD Vitamin B1 Jlier3033-47-00 21:22:00* Test Item Value Reference Range Interpretation Comments Vitamin B1 Level (test code = 11198-9) 301.0 66.5-200.0 H Performed at: [employer] [id number] [employer]ator: Lia Martinez MD, Phone: [phone] Children's HospitalVitamin B1 Pkbvg7731-75-64 21:22:00* Test Item Value Reference Range Interpretation Comments Vitamin B1 Level (test code = 41037-1) 301.0 66.5-200.0 H Performed at: [employer] [id number] [employer]ator: Lia Martinez MD, Phone: [phone] Children's HospitalBlood Jueutyo4535-40-06 08:50:00* Test Item Value Reference Range Interpretation Comments Blood Culture (test code = 58320179) NO GROWTH AFTER 5 DAYS, FINAL REPORT [facility] HospitalBlood Cchmzoa6186-95-62 08:50:00* Test Item Value Reference Range Interpretation Comments Blood Culture (test code = 90229198) NO GROWTH AFTER 5 DAYS, FINAL REPORT [facility] Vjimggw9857-27-31 08:50:00* Test Item Value Reference Range Interpretation Comments Blood Culture (test code = 52090651) NO GROWTH AFTER 5 DAYS, FINAL REPORT [facility] Dokfs2778-03-31 06:37:00* Test Item Value Reference Range Interpretation Comments Sodium Level (test code = 2951-2) 140 136-145 [facility] HospitalPotassium Vzfmh8680-89-97 06:37:00* Test Item Value Reference Range Interpretation Comments Potassium Level (test code = 2823-3) 3.6 3.5-5.1 [facility] HospitalChloride Dbljj7143-52-83 06:37:00* Test Item Value Reference Range Interpretation Comments Chloride Level (test code = 2075-0) 109 98-107 H [facility] HospitalCarbon Dioxide Hkgxz8646-95-50 06:37:00* Test Item Value Reference Range Interpretation Comments Carbon Dioxide Level (test code = 2028-9) 22 22-29 [facility] HospitalAnion Kul2375-34-97 06:37:00* Test Item Value Reference Range Interpretation Comments Anion Gap (test code = 66905-6) 12.6 8-16 [facility] HospitalBlood Urea Jqrvszuy0680-67-31 06:37:00* Test Item Value Reference Range Interpretation Comments Blood Urea Nitrogen (test code = 3094-0) 17 7-26 [facility] HospitalCreatinine2020-02-06 06:37:00* Test Item Value Reference Range Interpretation Comments Creatinine (test code = 2160-0) 1.09 0.57-1.11 [facility] HospitalBUN/Creatinine Urtbj6733-46-94 06:37:00* Test Item Value Reference Range Interpretation Comments BUN/Creatinine Ratio (test code = 3097-3) 16 6-25 [facility] HospitalEstimat Glomerular Filtration Rate 2019-07-01 06:37:00* Test Item Value Reference Range Interpretation Comments Estimat Glomerular Filtration Rate (test code = 388873632) 48 >60 L Ranges were taken from the National Kidney Disease Education Program and the [facility] Kidney Foundation literature.Reference ranges:60 or greater: Bzdzhe00-06 ( for 3 consecutive months): Chronic kidney disease 15 or less: Kidney failureTexas Children's HospitalGlucose Oruow8602-11-25 06:37:00* Test Item Value Reference Range Interpretation Comments Glucose Level (test code = LZB3176) 97 74-118 [facility] HospitalCalcium Dwhye4810-80-20 06:37:00* Test Item Value Reference Range Interpretation Comments Calcium Level (test code = 72763-8) 8.3 8.4-10.2 L [facility] HospitalTotal Rxwhsabpq8007-83-73 06:37:00* Test Item Value Reference Range Interpretation Comments Total Bilirubin (test code = 1975-2) 0.3 0.2-1.2 [facility] HospitalAspartate Amino Transf (AST/SGOT) 2019-07-01 06:37:00* Test Item Value Reference Range Interpretation Comments Aspartate Amino Transf (AST/SGOT) (test code = Aspartate Amino Transf (AST/SGOT)) 17 5-34 [facility] HospitalAlanine Aminotransferase (ALT/SGPT) 2019-07-01 06:37:00* Test Item Value Reference Range Interpretation Comments Alanine Aminotransferase (ALT/SGPT) (test code = 1742-6) 10 0-55 [facility] HospitalTotal Ocmwrme3375-33-18 06:37:00* Test Item Value Reference Range Interpretation Comments Total Protein (test code = 2885-2) 6.0 6.5-8.1 L [facility] HospitalAlbumin2020-02-06 06:37:00* Test Item Value Reference Range Interpretation Comments Albumin (test code = 1751-7) 2.4 3.5-5.0 L [facility] HospitalGlobulin2020-02-06 06:37:00* Test Item Value Reference Range Interpretation Comments Globulin (test code = 57699-9) 3.6 2.3-3.5 H [facility] HospitalAlbumin/Globulin Odzal3099-06-08 06:37:00 * Test Item Value Reference Range Interpretation Comments Albumin/Globulin Ratio (test code = 1759-0) 0.7 0.8-2.0 L [facility] HospitalAlkaline Hqsiuvxrnjr2713-27-06 06:37:00* Test Item Value Reference Range Interpretation Comments Alkaline Phosphatase (test code = 6768-6) 69 40-150 [facility] Hospitalerum or plasma thiamine measurement (moles/volume)2019-06-30 12:26:00* Test Item Value Reference Range Interpretation Comments Vitamin B1 Level (test code = 63974-8) 301.0 66.5-200.0 Performed at: [facility] [id number] Medical [employer] Cable Fabricator: Lia Martinez MD, Phone: [phone] Saint Michael Hospitalerum or plasma thiamine measurement (moles/volume)2019-06-30 12:26:00* Test Item Value Reference Range Interpretation Comments Vitamin B1 Level (test code = 52109-1) 301.0 66.5-200.0 Performed at: [place] [facility] [id number] [employer] Cable Fabricator: Lia Martinez MD, Phone: [phone] Children's HospitalWhite Blood Jyiid4144-74-19 05:53:00* Test Item Value Reference Range Interpretation Comments White Blood Count (test code = 6690-2) 5.45 4.8-10.8 [facility] HospitalRed Blood Bkjts7488-96-05 05:53:00* Test Item Value Reference Range Interpretation Comments Red Blood Count (test code = 789-8) 3.66 3.6-5.1 [facility] HospitalHemoglobin2020-02-05 05:53:00* Test Item Value Reference Range Interpretation Comments Hemoglobin (test code = 72987-6) 11.0 12.0-16.0 L [facility] HospitalHematocrit2020-02-05 05:53:00* Test Item Value Reference Range Interpretation Comments Hematocrit (test code = 4544-3) 32.7 34.2-44.1 L [facility] HospitalMean Corpuscular Nhzkcf7802-91-84 05:53:00* Test Item Value Reference Range Interpretation Comments Mean Corpuscular Volume (test code = 787-2) 89.3 81-99 [facility] HospitalMean Corpuscular Dznfyjfqis4746-08-46 05:53:00* Test Item Value Reference Range Interpretation Comments Mean Corpuscular Hemoglobin (test code = 785-6) 30.1 28-32 [facility] HospitalMean Corpuscular Hemoglobin Concent 2019-06-30 05:53:00* Test Item Value Reference Range Interpretation Comments Mean Corpuscular Hemoglobin Concent (test code = 786-4) 33.6 31-35 [facility] HospitalRed Cell Distribution Fzqrd6319-23-62 05:53:00* Test Item Value Reference Range Interpretation Comments Red Cell Distribution Width (test code = 68321-6) 12.7 11.7 -14.4 [facility] HospitalPlatelet Dxwxv0768-13-64 05:53:00* Test Item Value Reference Range Interpretation Comments Platelet Count (test code = 777-3) 233 140-360 [facility] HospitalNeutrophils (%) (Auto)2019-06-30 05:53:00 * Test Item Value Reference Range Interpretation Comments Neutrophils (%) (Auto) (test code = 32607-6) 48.6 38.7-80.0 [facility] HospitalLymphocytes (%) (Auto)2019-06-30 05:53:00 * Test Item Value Reference Range Interpretation Comments Lymphocytes (%) (Auto) (test code = 736-9) 27.9 18.0-39.1 [facility] HospitalMonocytes (%) (Auto)2019-06-30 05:53:00* Test Item Value Reference Range Interpretation Comments Monocytes (%) (Auto) (test code = 5905-5) 11.2 4.4-11.3 [facility] HospitalEosinophils (%) (Auto)2019-06-30 05:53:00 * Test Item Value Reference Range Interpretation Comments Eosinophils (%) (Auto) (test code = 713-8) 11.0 0.0-6.0 H [facility] HospitalBasophils (%) (Auto)2019-06-30 05:53:00* Test Item Value Reference Range Interpretation Comments Basophils (%) (Auto) (test code = 706-2) 0.9 0.0-1.0 [facility] HospitalIM GRANULOCYTES %2019-06-30 05:53:00* Test Item Value Reference Range Interpretation Comments IM GRANULOCYTES % (test code = IM GRANULOCYTES %) 0.4 0.0- 1.0 [facility] HospitalNeutrophils # (Auto)2019-06-30 05:53:00* Test Item Value Reference Range Interpretation Comments Neutrophils # (Auto) (test code = 751-8) 2.7 2.1-6.9 [facility] HospitalLymphocytes # (Auto)2019-06-30 05:53:00* Test Item Value Reference Range Interpretation Comments Lymphocytes # (Auto) (test code = 53090-6) 1.5 1.0-3.2 [facility] HospitalMonocytes # (Auto)2019-06-30 05:53:00* Test Item Value Reference Range Interpretation Comments Monocytes # (Auto) (test code = 742-7) 0.6 0.2-0.8 [facility] HospitalEosinophils # (Auto)2019-06-30 05:53:00* Test Item Value Reference Range Interpretation Comments Eosinophils # (Auto) (test code = 711-2) 0.6 0.0-0.4 H [facility] HospitalBasophils # (Auto)2019-06-30 05:53:00* Test Item Value Reference Range Interpretation Comments Basophils # (Auto) (test code = 704-7) 0.1 0.0-0.1 [facility] HospitalAbsolute Immature Granulocyte (auto 2019-06-30 05:53:00* Test Item Value Reference Range Interpretation Comments Absolute Immature Granulocyte (auto (anjali t code = Absolute Immature Granulocyte (auto) 0.02 0-0.1 [facility] HospitalCTA DPVDN8142-82-29 18:23:00 [facility] [address] [place] [address] Patient Name: YUE RAMSEY MR #: [id number] : 1935 Age/Sex: 83/F Req #: [id number] Adm Physician: SANRDA CHASE MD Ordered by: ILANA PALMER MD Report #: [id number] Location: [place] [address] Room/Bed: [facility]- Procedure: 0204-[address]/CTA BRAIN Exam Date: 06/29/19 Exam Time: 1701 REPORT STATUS: Signed History:<>, Comparison studies:None Technique: Axial images were obtained from the thoracic inlet. Coronal and sagittal images reconstructed from the axial d caroline. Additional multiplanar coronal, sagittal and oblique MIP images as well a s 3-D-volume rendered images of the carotid arteries and quinault of [place] were reformatted from the axial [...] with prominent posterior communicating arteries (fet al-type FLAT [employer]FACER JEWEL origins). Anatomical variants: Anterior communicating artery: Patient . Pcoms: Bilateral -type FLAT SURFACER JEWEL origins. Vertebral arteries: Rig ht is dominant. [...] 06/29/191908 COPY TO: ILANA PALMER MD CTA SUGC9984-16-43 18:23:00 [place] [address] Patient Name: YUE RAMSEY MR #: [id number] : 1935 Age/Sex: 83/F Req #: [id number] Adm Physician: SANDRA CHASE MD Ordered by: ILANA PALMER MD Report #: [id number] Location: MED/SURG3 Room/Bed: 287-1 Procedure: 0204-[address]/CTA NECK Exam Date: 06/29/19 Exam Time: 1701 REPORT STATUS: Signed History:<>, Comparison studies:None Technique: Axial images were obtained from the thoracic inlet. Coronal and sagittal images reconstructed from the axial d caroline. Additional multiplanar coronal, sagittal and oblique MIP images as well a s 3-D-volume rendered images of the carotid arteries and quinault of Kaplan were reformatted from the axial [...] with prominent posterior communicating arteries (fet al-type FLAT SURFACER JEWEL origins). Anatomical variants: Anterior communicating artery: Patient . Pcoms: Bilateral -type FLAT SURFACER JEWEL origins. Vertebral arteries: Rig ht is dominant. [...] COPY TO: ILANA PALMER MD MRI BRAIN VI0562-25-28 14:48:00 [place] [address] Patient Name: YUE RAMSEY MR #: [id number] : 1935 Age/Sex: 83/F Req #: [id number] Adm Physician: SANDRA CHASE MD Ordered by: ILANA PALMER MD Report #: [id number] Location: [facility] Room[facility]Bed: [facility] Procedure: [id number] 7 MRI/MRI BRAIN WO Exam [...] MD 57 COPY TO: ILANA PALMER MD Qbnoiak1330-08-06 19:49:00* Test Item Value Reference Range Interpretation Comments Ammonia (test code = 31892-4) 23 31-123 L [facility] [facility] Test Item Value Reference Range Interpretation Comments Ammonia (test code = 73837-8) 23 31-123 L [facility]00* Test Item Value Reference Range Interpretation Comments Ammonia (test code = 58966-2) 23 31-123 L [facility]IN JI6854-41-79 19:00:00 [facility] [address] [address] Patient Name: YUE RAMSEY MR #: [id number] : 1935 Age/Sex: 83/F Req #: [id number] Adm Physician: SANDRA CHASE MD Ordered by: SANDRA CHASE MD Report #: [id number] Location: [facility] Room/Bed: [facility] Procedure: [id number] CT/CT BRAIN WO Exam Date: 06/28/19 Exam [...] 06/28/191903 COPY TO: SANDRA CHASE MD Urine XCL1524-45-03 18:25:00* Test Item Value Reference Range Interpretation Comments Urine WBC (test code = 5821-4) NONE 0-5 [facility] BQH5767-04-93 18:25:00* Test Item Value Reference Range Interpretation Comments Urine RBC (test code = 27677-6) NONE 0-5 [facility] Aocmzfjw7306-75-95 18:25:00* Test Item Value Reference Range Interpretation Comments Urine Bacteria (test code = 28677-3) RARE NONE [facility] Epithelial Nzutl0186-70-54 18:25:00 * Test Item Value Reference Range Interpretation Comments Urine Epithelial Cells (test code = 80848-6) FEW NONE [facility]2020-02-03 18:23:00* Test Item Value Reference Range Interpretation Comments Ammonia (test code = 38069-1) 23 31-123 [facility]2020-02-03 18:23:00* Test Item Value Reference Range Interpretation Comments Ammonia (test code = 58222-2) 23 31-123 [facility] Rlykw3032-89-25 18:20:00* Test Item Value Reference Range Interpretation Comments Urine Color (test code = 5778-6) YELLOW YELLOW [facility] Skoudey8960-40-90 18:20:00* Test Item Value Reference Range Interpretation Comments Urine Clarity (test code = 26776-2) SL CLOUDY CLEAR [facility] Specific Zbassky3943-26-16 18:20:00 * Test Item Value Reference Range Interpretation Comments Urine Specific [place] (test code = 5811-5) 1.025 1.010-1.02 5 [facility] nK5103-31-78 18:20:00* Test Item Value Reference Range Interpretation Comments Urine pH (test code = 14391-7) 7 5-7 [facility] Leukocyte Ktenrcfv1241-39-74 18:20:00* Test Item Value Reference Range Interpretation Comments Urine Leukocyte Esterase (test code = 5799-2) NEGATIVE NEGATIVE [facility] Rwauujc2139-27-70 18:20:00* Test Item Value Reference Range Interpretation Comments Urine Nitrite (test code = 89105-5) NEGATIVE NEGATIVE [facility] Jzbgfqb9044-16-60 18:20:00* Test Item Value Reference Range Interpretation Comments Urine Protein (test code = 5804-0) NEGATIVE NEGATIVE [facility] Glucose (UA)2019-06-28 18:20:00* Test Item Value Reference Range Interpretation Comments Urine Glucose (UA) (test code = 2349-9) NEGATIVE NEGATIVE [facility] Jwckzww4607-41-55 18:20:00* Test Item Value Reference Range Interpretation Comments Urine Ketones (test code = 68310-5) NEGATIVE NEGATIVE [facility] Jbjgqboiagdb2309-30-84 18:20:00* Test Item Value Reference Range Interpretation Comments Urine Urobilinogen (test code = 67958-2) 0.2 0.2-1 [facility] Mfkvsoamq7717-95-78 18:20:00* Test Item Value Reference Range Interpretation Comments Urine Bilirubin (test code = 1978-6) NEGATIVE NEGATIVE [facility] Guqqt6992-64-71 18:20:00* Test Item Value Reference Range Interpretation Comments Urine Blood (test code = 74834-7) NEGATIVE NEGATIVE [facility] HospitalTriglycerides Vpeax8143-34-28 06:33:00* Test Item Value Reference Range Interpretation Comments Triglycerides Level (test code = 2571-8) 94 0-149 [facility] HospitalCh[facility] Rpgqq1932-98-52 06:33:00* Test Item Value Reference Range Interpretation Comments Cholesterol Level (test code = 2093-3) 95 0-199 Less than 200 mg/dL Low Pjjd014 - 239 mg/dL Borderline Ymkk597 m g/dl and greater High Risk [facility] HospitalLDL Gdufoanqjch6219-90-65 06:33:00* Test Item Value Reference Range Interpretation Comments LDL Cholesterol (test code = 2089-1) 49 60-130 L [facility] HospitalHDL Xhopfltjkiq2719-62-21 06:33:00* Test Item Value Reference Range Interpretation Comments HDL Cholesterol (test code = 2085-9) 27 40-60 L [facility] HospitalCholesterol/HDL Vasig7898-80-97 06:33:00 * Test Item Value Reference Range Interpretation Comments Cholesterol/HDL Ratio (test code = 9830-1) 3.5 3.0-3.6 [facility] HospitalTriglycerides Zyble7395-85-19 06:33:00* Test Item Value Reference Range Interpretation Comments Triglycerides Level (test code = 2571-8) 94 0-149 [facility] HospitalCholesterol Yojad4361-93-22 06:33:00* Test Item Value Reference Range Interpretation Comments Cholesterol Level (test code = 2093-3) 95 0-199 Less than 200 mg/dL Low Fhxz648 - 239 mg/dL Borderline Dscu764 m g/dl and greater High Risk [facility] HospitalLDL Pqlcgeybvbr2610-38-73 06:33:00* Test Item Value Reference Range Interpretation Comments LDL Cholesterol (test code = 2089-1) 49 60-130 L [facility] HospitalHDL Koppjtoifco3592-52-90 06:33:00* Test Item Value Reference Range Interpretation Comments HDL Cholesterol (test code = 2085-9) 27 40-60 L [facility] HospitalCholesterol/HDL Vyzbj0433-99-61 06:33:00 * Test Item Value Reference Range Interpretation Comments Cholesterol/HDL Ratio (test code = 9830-1) 3.5 3.0-3.6 [facility] HospitalCreatine Kinase FO2544-47-46 03:11:00* Test Item Value Reference Range Interpretation Comments Creatine Kinase MB (test code = 53358-7) 0.30 0-5.0 [facility] HospitalTroponin J1432-65-56 03:11:00* Test Item Value Reference Range Interpretation Comments Troponin I (test code = DYY3646) < 0.001 0-0.300 [facility] HospitalCreatine Bspbmi2630-00-20 03:01:00* Test Item Value Reference Range Interpretation Comments Creatine Kinase (test code = 2157-6) 17 29-168 L [facility] HospitalB-Type Natriuretic Kthgsiv9261-86-52 09:37:00* Test Item Value Reference Range Interpretation Comments B-Type Natriuretic Peptide (test code = 28237-2) 232.4 0-100 H [facility] HospitalCHEST SINGLE (PORTABLE)2019-06-27 09:27:[address] [address] Patient Name: YUE RAMSEY MR #: [id number] : 1935 Age/Sex: 83/F Req #: [id number] Adm Physician: Ordered by: CANDIDA ROSE MD Report #: [id number] Location: ER Room/Bed: Procedure: [id number] DX /CHEST SINGLE (PORTABLE) Exam Date: 06/27/19 [...] COPY TO: CANDIDA ROSE MD Lactic Acid Rvpym1038-06-86 09:07:00* Test Item Value Reference Range Interpretation Comments Lactic Acid Level (test code = Lactic Acid Level) 2.3 0.5- 2.0 Results repeated and called to ELIZABETH ORNELAS at 0905 on 06/27/19 by Madhu graf Read back and verified.[facility] HospitalL[facility] Acid Vulyz3724-19-19 09:07:00* Test Item Value Reference Range Interpretation Comments Lactic Acid Level (test code = Lactic Acid Level) 2.3 0.5- 2.0 Results repeated and called to ELIZABETH ORNELAS at 0905 on 06/27/19 by Madhu graf Read back and verified.[facility] HospitalLactic Acid Xtjyh5857-10-67 09:07:00* Test Item Value Reference Range Interpretation Comments Lactic Acid Level (test code = Lactic Acid Level) 2.3 0.5- 2.0 HH Results repeated and called to ELIZABETH ORNELAS at 09 on 06/27/19 by Madhu graf Read back and verified.[facility] HospitalFluoroscopic procedure less than one hour heknmndi5386-68-99 07:10:00* Test Item Value Reference Range Interpretation Comments Lactic Acid Level (test code = Lactic Acid Level) 2.3 0.5- 2.0 Results repeated and called to ELIZABETH ORNELAS at 09 on 06/27/19 by Mdahu graf Read back and verified.[facility] HospitalBlood culture 2019-06-27 07:10:00* Test Item Value Reference Range Interpretation Comments Blood Culture (test code = 16563448) NO GROWTH AFTER 5 DAYS, FINAL REPORT [facility] HospitalFluoroscopic procedure less than one hour nwenrvpg2434-10-82 07:10:00* Test Item Value Reference Range Interpretation Comments Lactic Acid Level (test code = Lactic Acid Level) 2.3 0.5- 2.0 Results repeated and called to ELIZABETH ORNELAS at 09 on 06/27/19 by Madhu graf Read back and verified.[facility] culture 2019-06-27 07:10:00* Test Item Value Reference Range Interpretation Comments Blood Culture (test code = 53695227) NO GROWTH AFTER 5 DAYS, FINAL REPORT [facility] HospitalUS RENAL RETROPERITONEAL VCCZ3260-14-74 16:48:00 [address] [address] Patient Name: YUE RAMSEY MR #: [id number] : 1935 Age/Sex: 83/F Req #: [id number] Adm Physician: Ordered by: SHAILA LANDA MD Report #: [id number] Location: Room/Bed: Procedure: [id number] US/U S RENAL RETROPERITONEAL COMP Exam Date: 06/22/19 Adela strange Time: 1621 REPORT STATUS: Signed EXAM: Renal Ultrasound INDICATION: [...] TO: SHAILA LANDA MD ABDOMEN-1VIEW (KUB)2019-06-22 16:16:00 [address] [address] Patient Name: YUE RAMSEY MR #: [id number] : 1935 Age/Sex: 83/F Req #: [id number] Adm Physician: Ordered by: SHAILA LANDA MD Report #: [id number] Location: US Room/Bed: Procedure: [id number] DX/A BDOMEN-1VIEW (KUB) Exam Date: 06/22/19 Exam [...] Sign ed By: GILLES JIMENEZ MD on 06/22/19 161 Transcribed By: GELY on 06/22/19 1617 COPY TO: SHAILA LANDA MD Urine XET1364-17-26 07:58:00* Test Item Value Reference Range Interpretation Comments Urine WBC (test code = 5821-4) 0-5 0-5 [facility] Hospital[facility] THC7230-84-80 07:58:00* Test Item Value Reference Range Interpretation Comments Urine RBC (test code = 35271-3) 0-5 0-5 [facility] HospitalU[facility] Zugrkyql7165-58-40 07:58:00* Test Item Value Reference Range Interpretation Comments Urine Bacteria (test code = 73810-8) RARE NONE [facility] HospitalU[facility] Epithelial Tzcbc1506-04-16 07:58:00 * Test Item Value Reference Range Interpretation Comments Urine Epithelial Cells (test code = 37945-1) RARE NONE [facility] HospitalU[facility] XGY1596-70-13 07:58:00* Test Item Value Reference Range Interpretation Comments Urine WBC (test code = 5821-4) 0-5 0-5 [facility] HospitalU[facility] YFX2465-00-03 07:58:00* Test Item Value Reference Range Interpretation Comments Urine RBC (test code = 81964-8) 0-5 0-5 [facility] HospitalU[facility] Aorubvcg6250-46-80 07:58:00* Test Item Value Reference Range Interpretation Comments Urine Bacteria (test code = 13980-0) RARE NONE [facility] HospitalU[facility] Epithelial Aiwyh2158-12-73 07:58:00 * Test Item Value Reference Range Interpretation Comments Urine Epithelial Cells (test code = 35090-0) RARE NONE [facility] HospitalU[facility] TOF9454-35-01 07:58:00* Test Item Value Reference Range Interpretation Comments Urine WBC (test code = 5821-4) 0-5 0-5 [facility] HospitalU[facility] STO1261-57-22 07:58:00* Test Item Value Reference Range Interpretation Comments Urine RBC (test code = 04208-1) 0-5 0-5 [facility] HospitalU[facility] Uwbcmian7457-40-47 07:58:00* Test Item Value Reference Range Interpretation Comments Urine Bacteria (test code = 10283-6) RARE NONE [facility] HospitalU[facility] Epithelial Zfgvp5106-03-27 07:58:00 * Test Item Value Reference Range Interpretation Comments Urine Epithelial Cells (test code = 56745-4) RARE NONE [facility] HospitalU[facility] Giill2059-03-01 07:25:00* Test Item Value Reference Range Interpretation Comments Urine Color (test code = 5778-6) YELLOW YELLOW [facility] HospitalU[facility] Ahvemjh6720-32-79 07:25:00* Test Item Value Reference Range Interpretation Comments Urine Clarity (test code = 71821-3) CLEAR CLEAR [facility] HospitalU[facility] Specific Uxfdzzv5987-56-30 07:25:00 * Test Item Value Reference Range Interpretation Comments Urine Specific [place] (test code = 5811-5) 1.025 1.010-1.02 5 [facility] HospitalU[facility] sS0305-04-04 07:25:00* Test Item Value Reference Range Interpretation Comments Urine pH (test code = 27254-9) 6 5-7 [facility] Hospital[facility] Leukocyte Iffksbuk1938-90-36 07:25:00* Test Item Value Reference Range Interpretation Comments Urine Leukocyte Esterase (test code = 5799-2) TRACE NEGATIVE H [facility] HospitalU[facility] Zngpvwy0457-20-54 07:25:00* Test Item Value Reference Range Interpretation Comments Urine Nitrite (test code = 32369-5) NEGATIVE NEGATIVE [facility] Hospital[facility] Fvrcmhm3906-75-00 07:25:00* Test Item Value Reference Range Interpretation Comments Urine Protein (test code = 5804-0) NEGATIVE NEGATIVE [facility] HospitalU[facility] Glucose (UA)2019-05-12 07:25:00* Test Item Value Reference Range Interpretation Comments Urine Glucose (UA) (test code = 2349-9) NEGATIVE NEGATIVE [facility] HospitalU[facility] Khlgiub6031-51-04 07:25:00* Test Item Value Reference Range Interpretation Comments Urine Ketones (test code = 16270-9) NEGATIVE NEGATIVE [facility] Uzfbauuysctn8295-03-06 07:25:00* Test Item Value Reference Range Interpretation Comments Urine Urobilinogen (test code = 25439-2) 0.2 0.2-1 [facility] Bakspxicy1821-62-41 07:25:00* Test Item Value Reference Range Interpretation Comments Urine Bilirubin (test code = 1978-6) NEGATIVE NEGATIVE [facility] Trcqp4052-89-81 07:25:00* Test Item Value Reference Range Interpretation Comments Urine Blood (test code = 25257-5) TRACE NEGATIVE [facility] Ibvfv6470-98-18 07:25:00* Test Item Value Reference Range Interpretation Comments Urine Color (test code = 5778-6) YELLOW YELLOW [facility] Cnwnzxm1875-21-62 07:25:00* Test Item Value Reference Range Interpretation Comments Urine Clarity (test code = 90364-3) CLEAR CLEAR [facility] HospitalU[facility] Specific Rchttbg9172-50-60 07:25:00 * Test Item Value Reference Range Interpretation Comments Urine Specific [place] (test code = 5811-5) 1.025 1.010-1.02 5 [facility] wV4837-76-85 07:25:00* Test Item Value Reference Range Interpretation Comments Urine pH (test code = 23013-2) 6 5-7 [facility] Leukocyte Dgpfvbql0426-10-63 07:25:00* Test Item Value Reference Range Interpretation Comments Urine Leukocyte Esterase (test code = 5799-2) TRACE NEGATIVE H [facility] Nddsqup3000-96-87 07:25:00* Test Item Value Reference Range Interpretation Comments Urine Nitrite (test code = 26809-7) NEGATIVE NEGATIVE [facility] Yxammts8389-77-87 07:25:00* Test Item Value Reference Range Interpretation Comments Urine Protein (test code = 5804-0) NEGATIVE NEGATIVE [facility] Glucose (UA)2019-05-12 07:25:00* Test Item Value Reference Range Interpretation Comments Urine Glucose (UA) (test code = 2349-9) NEGATIVE NEGATIVE [facility] Kmnkuhu3971-66-56 07:25:00* Test Item Value Reference Range Interpretation Comments Urine Ketones (test code = 91785-9) NEGATIVE NEGATIVE [facility] Xrhjxqmfixgp1084-18-87 07:25:00* Test Item Value Reference Range Interpretation Comments Urine Urobilinogen (test code = 35714-2) 0.2 0.2-1 [facility] Djvnboceh4796-63-71 07:25:00* Test Item Value Reference Range Interpretation Comments Urine Bilirubin (test code = 1978-6) NEGATIVE NEGATIVE [facility] Pngge6370-49-24 07:25:00* Test Item Value Reference Range Interpretation Comments Urine Blood (test code = 57071-1) TRACE NEGATIVE [facility] Isvnm4548-91-40 07:25:00* Test Item Value Reference Range Interpretation Comments Urine Color (test code = 5778-6) YELLOW YELLOW [facility] Vdgmegl1340-68-60 07:25:00* Test Item Value Reference Range Interpretation Comments Urine Clarity (test code = 66690-6) CLEAR CLEAR [facility] Specific Xoqhuzq7595-47-36 07:25:00 * Test Item Value Reference Range Interpretation Comments Urine Specific [place] (test code = 5811-5) 1.025 1.010-1.02 5 [facility] xV6572-93-54 07:25:00* Test Item Value Reference Range Interpretation Comments Urine pH (test code = 35063-7) 6 5-7 [facility] Leukocyte Pwcojsgb9765-69-13 07:25:00* Test Item Value Reference Range Interpretation Comments Urine Leukocyte Esterase (test code = 5799-2) TRACE NEGATIVE H [facility] Amxoarv1141-76-44 07:25:00* Test Item Value Reference Range Interpretation Comments Urine Nitrite (test code = 63299-0) NEGATIVE NEGATIVE [facility] Mgalxhx3952-52-35 07:25:00* Test Item Value Reference Range Interpretation Comments Urine Protein (test code = 5804-0) NEGATIVE NEGATIVE [facility] Glucose (UA)2019-05-12 07:25:00* Test Item Value Reference Range Interpretation Comments Urine Glucose (UA) (test code = 2349-9) NEGATIVE NEGATIVE [facility] Gfclhgp6965-41-60 07:25:00* Test Item Value Reference Range Interpretation Comments Urine Ketones (test code = 68252-3) NEGATIVE NEGATIVE [facility] Emzmhjrzijwk9442-19-65 07:25:00* Test Item Value Reference Range Interpretation Comments Urine Urobilinogen (test code = 18020-9) 0.2 0.2-1 [facility] Mrjodhtfs4842-97-75 07:25:00* Test Item Value Reference Range Interpretation Comments Urine Bilirubin (test code = 1978-6) NEGATIVE NEGATIVE [facility] Zurkk7807-07-32 07:25:00* Test Item Value Reference Range Interpretation Comments Urine Blood (test code = 42669-2) TRACE NEGATIVE [facility] Wwzzklp4938-97-55 13:09:00* Test Item Value Reference Range Interpretation Comments Urine Culture (test code = 630-4) No Result Data Provided [facility] Dslyrxd3043-41-05 13:09:00* Test Item Value Reference Range Interpretation Comments Urine Culture (test code = 630-4) No Result Data Provided [facility] Aqnkctc9658-16-34 13:09:00* Test Item Value Reference Range Interpretation Comments Urine Culture (test code = 630-4) No Result Data Provided [facility] Kmwqwda6432-65-40 13:09:00* Test Item Value Reference Range Interpretation Comments Urine Culture (test code = 630-4) No Result Data Provided [facility] Korcpdt4237-74-03 13:09:00* Test Item Value Reference Range Interpretation Comments Urine Culture (test code = 630-4) No Result Data Provided [facility] Pzymmvs4507-25-77 13:09:00* Test Item Value Reference Range Interpretation Comments Urine Culture (test code = 630-4) No Result Data Provided [facility] IML0917-31-43 10:01:00* Test Item Value Reference Range Interpretation Comments Urine WBC (test code = 5821-4) 6-10 0-5 H [facility] WFJ3579-65-19 10:01:00* Test Item Value Reference Range Interpretation Comments Urine RBC (test code = 62238-1) 0-5 0-5 [facility] Bliyaasc7939-47-33 10:01:00* Test Item Value Reference Range Interpretation Comments Urine Bacteria (test code = 84128-1) FEW NONE [facility] Epithelial Qafmq5921-96-42 10:01:00 * Test Item Value Reference Range Interpretation Comments Urine Epithelial Cells (test code = 03579-5) MODERATE NONE [facility] Jsdml8965-63-23 09:52:00* Test Item Value Reference Range Interpretation Comments Urine Color (test code = 5778-6) YELLOW YELLOW [facility] Zyjmqun6291-82-37 09:52:00* Test Item Value Reference Range Interpretation Comments Urine Clarity (test code = 54674-6) CLEAR CLEAR [facility] Specific Gyocwht7136-26-97 09:52:00 * Test Item Value Reference Range Interpretation Comments Urine Specific [place] (test code = 5811-5) 1.025 1.010-1.02 5 [facility] qG8661-56-79 09:52:00* Test Item Value Reference Range Interpretation Comments Urine pH (test code = 26636-2) 6 5-7 [facility] Leukocyte Szfgakmv1485-05-76 09:52:00* Test Item Value Reference Range Interpretation Comments Urine Leukocyte Esterase (test code = 62371-9) SMALL NEGATIV E [facility] Hfyaarr3974-49-08 09:52:00* Test Item Value Reference Range Interpretation Comments Urine Nitrite (test code = 10379-7) NEGATIVE NEGATIVE [facility] Pnbjpni8750-72-63 09:52:00* Test Item Value Reference Range Interpretation Comments Urine Protein (test code = 95509-7) 1+ NEGATIVE H [facility] Glucose (UA)2019-04-24 09:52:00* Test Item Value Reference Range Interpretation Comments Urine Glucose (UA) (test code = 28123-0) NEGATIVE NEGATIVE [facility] Nlrztka9519-43-57 09:52:00* Test Item Value Reference Range Interpretation Comments Urine Ketones (test code = 50371-1) TRACE NEGATIVE H [facility] Zjtnkwcxexag5482-63-64 09:52:00* Test Item Value Reference Range Interpretation Comments Urine Urobilinogen (test code = 42153-9) 0.2 0.2-1 [facility] Ppleixzye7780-73-31 09:52:00* Test Item Value Reference Range Interpretation Comments Urine Bilirubin (test code = 1977-8) NEGATIVE NEGATIVE [facility] Tlgan1152-83-43 09:52:00* Test Item Value Reference Range Interpretation Comments Urine Blood (test code = 82707-2) NEGATIVE NEGATIVE [facility] HospitalBacterial urine fucsrmr2612-81-84 07:33:00* Test Item Value Reference Range Interpretation Comments Urine Culture (test code = 630-4) ENTEROCOCCUS FAECALIS [facility] HospitalBacterial urine txqxkdd7766-06-23 07:33:00* Test Item Value Reference Range Interpretation Comments Urine Culture (test code = 630-4) ENTEROCOCCUS FAECALIS [facility]PELVIS O3055-41-69 10:56:00 [facility] [address] [address] Patient Name: YUE RAMSEY MR #: [id number] : 1935 Age/Sex: 83/F Req #: [id number] Adm Physician: Ordered by: GIRISH BROWN MD Report #: [id number] Location: ER Room/Bed: Procedure: [id number] C T/CT ABDOMEN/PELVIS W Exam Date: 04/15/19 Exam Time: 1010 REPORT STATUS: Signed EXAM : CT Abdomen and Pelvis WITH intravenous contrast INDICATION: Abdominal p ain COMPARISON: None. TECHNIQUE: Abdomen and pelvis were scanned utili [employer] a multidetector helical scanner from the lung [...] 1104 COPY TO: GIRISH BROWN MD Sodium Syofu0294-35-48 09:55:00* Test Item Value Reference Range Interpretation Comments Sodium Level (test code = 2951-2) 142 136-145 [facility] HospitalPotassium Kvvec1548-26-36 09:55:00* Test Item Value Reference Range Interpretation Comments Potassium Level (test code = 2823-3) 3.7 3.5-5.1 [facility] HospitalChloride Ukmqp7505-11-44 09:55:00* Test Item Value Reference Range Interpretation Comments Chloride Level (test code = 2075-0) 106 98-107 [facility] HospitalCarbon Dioxide Nciuo3310-08-60 09:55:00* Test Item Value Reference Range Interpretation Comments Carbon Dioxide Level (test code = 8-9) 25 22-29 [facility] HospitalAnion Tiu5292-37-97 09:55:00* Test Item Value Reference Range Interpretation Comments Anion Gap (test code = 07165-8) 14.7 8-16 [facility] HospitalBlood Urea Okflrfdh7557-04-46 09:55:00* Test Item Value Reference Range Interpretation Comments Blood Urea Nitrogen (test code = 3094-0) 20 7-26 [facility] HospitalCreatinine2019-11-21 09:55:00* Test Item Value Reference Range Interpretation Comments Creatinine (test code = 2160-0) 1.39 0.57-1.11 H [facility] HospitalBUN/Creatinine Xjsfp4497-07-78 09:55:00* Test Item Value Reference Range Interpretation Comments BUN/Creatinine Ratio (test code = 3097-3) 14 6-25 [facility] HospitalEstimat Glomerular Filtration Rate 2019-04-15 09:55:00* Test Item Value Reference Range Interpretation Comments Estimat Glomerular Filtration Rate (test code = 529546644) 36 >60 L Ranges were taken from the National Kidney Disease Education Program and the [employer] [employer] literature.Reference ranges:60 or greater: Rbqgkv27-86 ( for 3 consecutive months): Chronic kidney disease 15 or less: Kidney failureTexas Children's HospitalGlucose Kywkq2444-36-42 09:55:00* Test Item Value Reference Range Interpretation Comments Glucose Level (test code = LWQ4340) 106 74-118 [facility] HospitalCalcium Pqftn6986-16-69 09:55:00* Test Item Value Reference Range Interpretation Comments Calcium Level (test code = 78978-4) 10.0 8.4-10.2 [facility] HospitalMagnesium Iests0228-70-86 09:55:00* Test Item Value Reference Range Interpretation Comments Magnesium Level (test code = 36763-6) 2.1 1.3-2.1 [facility]Total Anjkyapyd0920-58-85 09:55:00* Test Item Value Reference Range Interpretation Comments Total Bilirubin (test code = 1975-2) 0.6 0.2-1.2 [facility] HospitalAspartate Amino Transf (AST/SGOT) 2019-04-15 09:55:00* Test Item Value Reference Range Interpretation Comments Aspartate Amino Transf (AST/SGOT) (test code = Aspartate Amino Transf (AST/SGOT)) 33 5-34 [facility] HospitalAlanine Aminotransferase (ALT/SGPT) 2019-04-15 09:55:00* Test Item Value Reference Range Interpretation Comments Alanine Aminotransferase (ALT/SGPT) (test code = 1742-6) 27 0-55 [facility]Total Ysqtdqo8939-79-30 09:55:00* Test Item Value Reference Range Interpretation Comments Total Protein (test code = 2885-2) 7.2 6.5-8.1 [facility] HospitalAlbumin2019-11-21 09:55:00* Test Item Value Reference Range Interpretation Comments Albumin (test code = 1751-7) 3.7 3.5-5.0 [facility] HospitalGlobulin2019-11-21 09:55:00* Test Item Value Reference Range Interpretation Comments Globulin (test code = 29047-3) 3.5 2.3-3.5 [facility] HospitalAlbumin/Globulin Lfpmo6962-31-18 09:55:00 * Test Item Value Reference Range Interpretation Comments Albumin/Globulin Ratio (test code = 1759-0) 1.1 0.8-2.0 [facility] HospitalAlkaline Byhomavluhu3939-65-31 09:55:00* Test Item Value Reference Range Interpretation Comments Alkaline Phosphatase (test code = 6768-6) 87 40-150 [facility] HospitalB-Type Natriuretic Nagosrq3312-18-68 09:55:00* Test Item Value Reference Range Interpretation Comments B-Type Natriuretic Peptide (test code = 08063-8) 136.8 0-100 H [facility] HospitalCreatine Rsfsun9397-89-56 09:55:00* Test Item Value Reference Range Interpretation Comments Creatine Kinase (test code = 2157-6) 76 29-168 [facility] HospitalCreatine Kinase IU7672-48-12 09:55:00* Test Item Value Reference Range Interpretation Comments Creatine Kinase MB (test code = 84431-0) 3.60 0-5.0 [facility] HospitalTroponin W1913-78-82 09:55:00* Test Item Value Reference Range Interpretation Comments Troponin I (test code = IFS8434) 0.036 0-0.300 [facility] HospitalLipase2019-11-21 09:55:00* Test Item Value Reference Range Interpretation Comments Lipase (test code = 3040-3) 75 8-78 [facility] Mktks0302-46-60 09:55:00* Test Item Value Reference Range Interpretation Comments Sodium Level (test code = 2951-2) 142 136-145 [facility] HospitalPotassium Btamu4562-54-93 09:55:00* Test Item Value Reference Range Interpretation Comments Potassium Level (test code = 2823-3) 3.7 3.5-5.1 [facility] HospitalChloride Upusu5207-64-83 09:55:00* Test Item Value Reference Range Interpretation Comments Chloride Level (test code = 2075-0) 106 98-107 [facility] HospitalCarbon Dioxide Xwarg5343-23-74 09:55:00* Test Item Value Reference Range Interpretation Comments Carbon Dioxide Level (test code = 2028-9) 25 22-29 [facility] HospitalAnion Pnp4234-08-96 09:55:00* Test Item Value Reference Range Interpretation Comments Anion Gap (test code = 39364-2) 14.7 8-16 [facility] HospitalBlood Urea Wmlyezhf3796-61-97 09:55:00* Test Item Value Reference Range Interpretation Comments Blood Urea Nitrogen (test code = 3094-0) 20 7-26 [facility] HospitalCreatinine2019-11-21 09:55:00* Test Item Value Reference Range Interpretation Comments Creatinine (test code = 2160-0) 1.39 0.57-1.11 H [facility] HospitalBUN/Creatinine Gusop4160-06-81 09:55:00* Test Item Value Reference Range Interpretation Comments BUN/Creatinine Ratio (test code = 3097-3) 14 6-25 [facility] HospitalEstimat Glomerular Filtration Rate 2019-04-15 09:55:00* Test Item Value Reference Range Interpretation Comments Estimat Glomerular Filtration Rate (test code = 491240213) 36 >60 L Ranges were taken from the National Kidney Disease Education Program and the [facility] Kidney Foundation literature.Reference ranges:60 or greater: Dhuflo54-58 ( for 3 consecutive months): Chronic kidney disease 15 or less: Kidney failureTexas Children's HospitalGlucose Xfmex0110-84-93 09:55:00* Test Item Value Reference Range Interpretation Comments Glucose Level (test code = ZAC5752) 106 74-118 [facility] HospitalCalcium Pddla3101-92-12 09:55:00* Test Item Value Reference Range Interpretation Comments Calcium Level (test code = 57833-1) 10.0 8.4-10.2 [facility] HospitalMagnesium Kreab5360-00-95 09:55:00* Test Item Value Reference Range Interpretation Comments Magnesium Level (test code = 57053-0) 2.1 1.3-2.1 [facility] HospitalTotal Jghwggybr4406-72-64 09:55:00* Test Item Value Reference Range Interpretation Comments Total Bilirubin (test code = 1975-2) 0.6 0.2-1.2 [facility] HospitalAspartate Amino Transf (AST/SGOT) 2019-04-15 09:55:00* Test Item Value Reference Range Interpretation Comments Aspartate Amino Transf (AST/SGOT) (test code = Aspartate Amino Transf (AST/SGOT)) 33 5-34 [facility] HospitalAlanine Aminotransferase (ALT/SGPT) 2019-04-15 09:55:00* Test Item Value Reference Range Interpretation Comments Alanine Aminotransferase (ALT/SGPT) (test code = 1742-6) 27 0-55 [facility] HospitalTotal Jvwwwpl9814-14-78 09:55:00* Test Item Value Reference Range Interpretation Comments Total Protein (test code = 2885-2) 7.2 6.5-8.1 [facility] HospitalAlbumin2019-11-21 09:55:00* Test Item Value Reference Range Interpretation Comments Albumin (test code = 1751-7) 3.7 3.5-5.0 [facility] HospitalGlobulin2019-11-21 09:55:00* Test Item Value Reference Range Interpretation Comments Globulin (test code = 75880-7) 3.5 2.3-3.5 [facility] HospitalAlbumin/Globulin Qntdr4556-54-20 09:55:00 * Test Item Value Reference Range Interpretation Comments Albumin/Globulin Ratio (test code = 1759-0) 1.1 0.8-2.0 [facility] HospitalAlkaline Dvhergboysi4518-85-81 09:55:00* Test Item Value Reference Range Interpretation Comments Alkaline Phosphatase (test code = 6768-6) 87 40-150 [facility] HospitalB-Type Natriuretic Mphawwn3168-47-73 09:55:00* Test Item Value Reference Range Interpretation Comments B-Type Natriuretic Peptide (test code = 34914-8) 136.8 0-100 H [facility] HospitalCreatine Dbdubb8845-24-48 09:55:00* Test Item Value Reference Range Interpretation Comments Creatine Kinase (test code = 2157-6) 76 29-168 [facility] HospitalCreatine Kinase OQ4802-18-55 09:55:00* Test Item Value Reference Range Interpretation Comments Creatine Kinase MB (test code = 61367-2) 3.60 0-5.0 [facility] HospitalTroponin E4428-93-88 09:55:00* Test Item Value Reference Range Interpretation Comments Troponin I (test code = XWQ2254) 0.036 0-0.300 [facility] HospitalLipase2019-11-21 09:55:00* Test Item Value Reference Range Interpretation Comments Lipase (test code = 3040-3) 75 8-78 [facility] Rlooj8042-11-13 09:55:00* Test Item Value Reference Range Interpretation Comments Sodium Level (test code = 2951-2) 142 136-145 [facility] HospitalPotassium Vwdhq6610-13-46 09:55:00* Test Item Value Reference Range Interpretation Comments Potassium Level (test code = 2823-3) 3.7 3.5-5.1 [facility] HospitalChloride Iqbyd4165-73-08 09:55:00* Test Item Value Reference Range Interpretation Comments Chloride Level (test code = 2075-0) 106 98-107 [facility] HospitalCarbon Dioxide Vyciy4564-12-39 09:55:00* Test Item Value Reference Range Interpretation Comments Carbon Dioxide Level (test code = 2028-9) 25 22-29 [facility] HospitalAnion Gjg2637-14-06 09:55:00* Test Item Value Reference Range Interpretation Comments Anion Gap (test code = 80353-8) 14.7 8-16 [facility] HospitalBlood Urea Vuojcaws1639-45-78 09:55:00* Test Item Value Reference Range Interpretation Comments Blood Urea Nitrogen (test code = 3094-0) 20 7-26 [facility] HospitalCreatinine2019-11-21 09:55:00* Test Item Value Reference Range Interpretation Comments Creatinine (test code = 2160-0) 1.39 0.57-1.11 H [facility] HospitalBUN/Creatinine Xhyho5993-56-96 09:55:00* Test Item Value Reference Range Interpretation Comments BUN/Creatinine Ratio (test code = 3097-3) 14 6-25 [facility] HospitalEstimat Glomerular Filtration Rate 2019-04-15 09:55:00* Test Item Value Reference Range Interpretation Comments Estimat Glomerular Filtration Rate (test code = 926740895) 36 >60 L Ranges were taken from the National Kidney Disease Education Program and the [facility] literature.Reference ranges:60 or greater: Gxcqbr30-55 ( for 3 consecutive months): Chronic kidney disease 15 or less: Kidney failureTexas Children's HospitalGlucose Gdvmb5428-20-54 09:55:00* Test Item Value Reference Range Interpretation Comments Glucose Level (test code = FNU0873) 106 74-118 [facility] HospitalCalcium Tnoco0970-50-76 09:55:00* Test Item Value Reference Range Interpretation Comments Calcium Level (test code = 20742-8) 10.0 8.4-10.2 [facility] HospitalMagnesium Szmgt3822-86-81 09:55:00* Test Item Value Reference Range Interpretation Comments Magnesium Level (test code = 10191-2) 2.1 1.3-2.1 [facility] HospitalTotal Nqbjfbild6014-80-80 09:55:00* Test Item Value Reference Range Interpretation Comments Total Bilirubin (test code = 1975-2) 0.6 0.2-1.2 [facility] HospitalAspartate Amino Transf (AST/SGOT) 2019-04-15 09:55:00* Test Item Value Reference Range Interpretation Comments Aspartate Amino Transf (AST/SGOT) (test code = Aspartate Amino Transf (AST/SGOT)) 33 5-34 [facility] HospitalAlanine Aminotransferase (ALT/SGPT) 2019-04-15 09:55:00* Test Item Value Reference Range Interpretation Comments Alanine Aminotransferase (ALT/SGPT) (test code = 1742-6) 27 0-55 [facility] HospitalTotal Sazzvyt6553-93-75 09:55:00* Test Item Value Reference Range Interpretation Comments Total Protein (test code = 2885-2) 7.2 6.5-8.1 [facility] HospitalAlbumin2019-11-21 09:55:00* Test Item Value Reference Range Interpretation Comments Albumin (test code = 1751-7) 3.7 3.5-5.0 [facility] HospitalGlobulin2019-11-21 09:55:00* Test Item Value Reference Range Interpretation Comments Globulin (test code = 04488-2) 3.5 2.3-3.5 [facility] HospitalAlbumin/Globulin Ihols9615-07-32 09:55:00 * Test Item Value Reference Range Interpretation Comments Albumin/Globulin Ratio (test code = 1759-0) 1.1 0.8-2.0 [facility] HospitalAlkaline Uclggsnmjaq3903-79-96 09:55:00* Test Item Value Reference Range Interpretation Comments Alkaline Phosphatase (test code = 6768-6) 87 40-150 [facility] HospitalB-Type Natriuretic Wlbbegx7610-88-78 09:55:00* Test Item Value Reference Range Interpretation Comments B-Type Natriuretic Peptide (test code = 58254-8) 136.8 0-100 H [facility] HospitalCreatine Wscret4480-14-84 09:55:00* Test Item Value Reference Range Interpretation Comments Creatine Kinase (test code = 2157-6) 76 29-168 [facility] HospitalCreatine Kinase MS3722-43-79 09:55:00* Test Item Value Reference Range Interpretation Comments Creatine Kinase MB (test code = 96824-2) 3.60 0-5.0 [facility] HospitalTroponin E2542-31-07 09:55:00* Test Item Value Reference Range Interpretation Comments Troponin I (test code = TOF3237) 0.036 0-0.300 [facility] HospitalLipase2019-11-21 09:55:00* Test Item Value Reference Range Interpretation Comments Lipase (test code = 3040-3) 75 8-78 [facility] Xutuu8957-80-22 09:55:00* Test Item Value Reference Range Interpretation Comments Sodium Level (test code = 2951-2) 142 136-145 [facility] HospitalPotassium Heegv6711-45-67 09:55:00* Test Item Value Reference Range Interpretation Comments Potassium Level (test code = 2823-3) 3.7 3.5-5.1 [facility] HospitalChloride Orxub1039-77-95 09:55:00* Test Item Value Reference Range Interpretation Comments Chloride Level (test code = 2075-0) 106 98-107 [facility] HospitalCarbon Dioxide Opago3827-12-89 09:55:00* Test Item Value Reference Range Interpretation Comments Carbon Dioxide Level (test code = 2028-9) 25 22-29 [facility] HospitalAnion Hie2334-73-61 09:55:00* Test Item Value Reference Range Interpretation Comments Anion Gap (test code = 59520-8) 14.7 8-16 [facility] HospitalBlood Urea Aojbmuzf2746-51-18 09:55:00* Test Item Value Reference Range Interpretation Comments Blood Urea Nitrogen (test code = 3094-0) 20 7-26 [facility] HospitalCreatinine2019-11-21 09:55:00* Test Item Value Reference Range Interpretation Comments Creatinine (test code = 2160-0) 1.39 0.57-1.11 H [facility] HospitalBUN/Creatinine Ajkbt6931-42-75 09:55:00* Test Item Value Reference Range Interpretation Comments BUN/Creatinine Ratio (test code = 3097-3) 14 6-25 [facility] HospitalEstimat Glomerular Filtration Rate 2019-04-15 09:55:00* Test Item Value Reference Range Interpretation Comments Estimat Glomerular Filtration Rate (test code = 665576086) 36 >60 L Ranges were taken from the National Kidney Disease Education Program and the [facility] Kidney Foundation literature.Reference ranges:60 or greater: Kbmepn62-01 ( for 3 consecutive months): Chronic kidney disease 15 or less: Kid[facility] failureCH[facility] CenterGlucose Yhbsf8910-34-51 09:55:00* Test Item Value Reference Range Interpretation Comments Glucose Level (test code = INP3306) 106 74-118 [facility] HospitalCalcium Jkocy0321-84-95 09:55:00* Test Item Value Reference Range Interpretation Comments Calcium Level (test code = 86654-0) 10.0 8.4-10.2 [facility] HospitalMagnesium Msusr1731-48-51 09:55:00* Test Item Value Reference Range Interpretation Comments Magnesium Level (test code = 35592-5) 2.1 1.3-2.1 [facility] HospitalTotal Kxoijrtzd5584-14-32 09:55:00* Test Item Value Reference Range Interpretation Comments Total Bilirubin (test code = 1975-2) 0.6 0.2-1.2 [facility] HospitalAspartate Amino Transf (AST/SGOT) 2019-04-15 09:55:00* Test Item Value Reference Range Interpretation Comments Aspartate Amino Transf (AST/SGOT) (test code = Aspartate Amino Transf (AST/SGOT)) 33 5-34 [facility] HospitalAlanine Aminotransferase (ALT/SGPT) 2019-04-15 09:55:00* Test Item Value Reference Range Interpretation Comments Alanine Aminotransferase (ALT/SGPT) (test code = 1742-6) 27 0-55 [facility] HospitalTotal Oeahbth2241-39-90 09:55:00* Test Item Value Reference Range Interpretation Comments Total Protein (test code = 2885-2) 7.2 6.5-8.1 [facility] HospitalAlbumin2019-11-21 09:55:00* Test Item Value Reference Range Interpretation Comments Albumin (test code = 1751-7) 3.7 3.5-5.0 [facility] HospitalGlobulin2019-11-21 09:55:00* Test Item Value Reference Range Interpretation Comments Globulin (test code = 41504-6) 3.5 2.3-3.5 [facility] HospitalAlbumin/Globulin Hwnmh7217-48-56 09:55:00 * Test Item Value Reference Range Interpretation Comments Albumin/Globulin Ratio (test code = 1759-0) 1.1 0.8-2.0 [facility] HospitalAlkaline Ugoeumxfttn6911-82-70 09:55:00* Test Item Value Reference Range Interpretation Comments Alkaline Phosphatase (test code = 6768-6) 87 40-150 [facility] HospitalB-Type Natriuretic Grpqzil6476-57-01 09:55:00* Test Item Value Reference Range Interpretation Comments B-Type Natriuretic Peptide (test code = 38720-1) 136.8 0-100 H [facility] HospitalCreatine Rzbfrb8302-05-09 09:55:00* Test Item Value Reference Range Interpretation Comments Creatine Kinase (test code = 2157-6) 76 29-168 [facility] HospitalCreatine Kinase AW0275-01-40 09:55:00* Test Item Value Reference Range Interpretation Comments Creatine Kinase MB (test code = 61301-6) 3.60 0-5.0 [facility] HospitalTroponin F0700-04-97 09:55:00* Test Item Value Reference Range Interpretation Comments Troponin I (test code = NCH8058) 0.036 0-0.300 [facility] HospitalLipase2019-11-21 09:55:00* Test Item Value Reference Range Interpretation Comments Lipase (test code = 3040-3) 75 8-78 [facility] Mvafd3325-72-64 09:55:00* Test Item Value Reference Range Interpretation Comments Sodium Level (test code = 2951-2) 142 136-145 [facility] HospitalPotassium Sgvoi7325-55-51 09:55:00* Test Item Value Reference Range Interpretation Comments Potassium Level (test code = 2823-3) 3.7 3.5-5.1 [facility] HospitalChloride Gkoyk1322-50-84 09:55:00* Test Item Value Reference Range Interpretation Comments Chloride Level (test code = 2075-0) 106 98-107 [facility] HospitalCarbon Dioxide Nsawf1677-97-32 09:55:00* Test Item Value Reference Range Interpretation Comments Carbon Dioxide Level (test code = 2028-9) 25 22-29 [facility] HospitalAnion Lmb6932-98-13 09:55:00* Test Item Value Reference Range Interpretation Comments Anion Gap (test code = 72528-4) 14.7 8-16 [facility] HospitalBlood Urea Qysrqcjv8505-75-67 09:55:00* Test Item Value Reference Range Interpretation Comments Blood Urea Nitrogen (test code = 3094-0) 20 7-26 [facility] HospitalCreatinine2019-11-21 09:55:00* Test Item Value Reference Range Interpretation Comments Creatinine (test code = 2160-0) 1.39 0.57-1.11 H [facility] HospitalBUN/Creatinine Srdvo6129-45-26 09:55:00* Test Item Value Reference Range Interpretation Comments BUN/Creatinine Ratio (test code = 3097-3) 14 6-25 [facility] HospitalEstimat Glomerular Filtration Rate 2019-04-15 09:55:00* Test Item Value Reference Range Interpretation Comments Estimat Glomerular Filtration Rate (test code = 538070645) 36 >60 L Ranges were taken from the National Kidney Disease Education Program and the [facility] literature.Reference ranges:60 or greater: Gsmwgn64-34 ( for 3 consecutive months): Chronic kidney disease 15 or less: Kidney failureTexas Children's HospitalGlucose Hwzkb8184-53-24 09:55:00* Test Item Value Reference Range Interpretation Comments Glucose Level (test code = RPC1581) 106 74-118 [facility] HospitalCalcium Iqaro2270-98-14 09:55:00* Test Item Value Reference Range Interpretation Comments Calcium Level (test code = 38968-6) 10.0 8.4-10.2 [facility] HospitalMagnesium Jqfdq3235-68-94 09:55:00* Test Item Value Reference Range Interpretation Comments Magnesium Level (test code = 48170-1) 2.1 1.3-2.1 [facility] HospitalTotal Ntzhrzuje2526-77-22 09:55:00* Test Item Value Reference Range Interpretation Comments Total Bilirubin (test code = 1975-2) 0.6 0.2-1.2 [facility] HospitalAspartate Amino Transf (AST/SGOT) 2019-04-15 09:55:00* Test Item Value Reference Range Interpretation Comments Aspartate Amino Transf (AST/SGOT) (test code = Aspartate Amino Transf (AST/SGOT)) 33 5-34 [facility] HospitalAlanine Aminotransferase (ALT/SGPT) 2019-04-15 09:55:00* Test Item Value Reference Range Interpretation Comments Alanine Aminotransferase (ALT/SGPT) (test code = 1742-6) 27 0-55 [facility] HospitalTotal Iorewhi7070-40-03 09:55:00* Test Item Value Reference Range Interpretation Comments Total Protein (test code = 2885-2) 7.2 6.5-8.1 [facility] HospitalAlbumin2019-11-21 09:55:00* Test Item Value Reference Range Interpretation Comments Albumin (test code = 1751-7) 3.7 3.5-5.0 [facility] HospitalGlobulin2019-11-21 09:55:00* Test Item Value Reference Range Interpretation Comments Globulin (test code = 52018-7) 3.5 2.3-3.5 [facility] HospitalAlbumin/Globulin Olcqy3016-34-03 09:55:00 * Test Item Value Reference Range Interpretation Comments Albumin/Globulin Ratio (test code = 1759-0) 1.1 0.8-2.0 [facility] HospitalAlkaline Mpxgvoygaqj9601-23-77 09:55:00* Test Item Value Reference Range Interpretation Comments Alkaline Phosphatase (test code = 6768-6) 87 40-150 [facility] HospitalB-Type Natriuretic Qocukry5318-17-64 09:55:00* Test Item Value Reference Range Interpretation Comments B-Type Natriuretic Peptide (test code = 24669-1) 136.8 0-100 H [facility] HospitalCreatine Wkkjcc6952-44-37 09:55:00* Test Item Value Reference Range Interpretation Comments Creatine Kinase (test code = 2157-6) 76 29-168 [facility] HospitalCreatine Kinase UR0631-34-06 09:55:00* Test Item Value Reference Range Interpretation Comments Creatine Kinase MB (test code = 79050-3) 3.60 0-5.0 [facility] HospitalTroponin G4213-45-66 09:55:00* Test Item Value Reference Range Interpretation Comments Troponin I (test code = LPT4877) 0.036 0-0.300 [facility] HospitalLipase2019-11-21 09:55:00* Test Item Value Reference Range Interpretation Comments Lipase (test code = 3040-3) 75 8- [facility] HospitalMagnesium Jowuz8988-49-48 09:55:00* Test Item Value Reference Range Interpretation Comments Magnesium Level (test code = 63611-5) 2.1 1.3-2.1 [facility] HospitalLipase2019-11-21 09:55:00* Test Item Value Reference Range Interpretation Comments Lipase (test code = 3040-3) 75 8-78 [facility] HospitalMagnesium Tmrhw9364-16-45 09:55:00* Test Item Value Reference Range Interpretation Comments Magnesium Level (test code = 85378-0) 2.1 1.3-2.1 [facility] HospitalLipase2019-11-21 09:55:00* Test Item Value Reference Range Interpretation Comments Lipase (test code = 3040-3) 75 8-78 [facility] HospitalMagnesium Pqkrk0223-85-02 09:55:00* Test Item Value Reference Range Interpretation Comments Magnesium Level (test code = 62200-8) 2.1 1.3-2.1 [facility] HospitalLipase2019-11-21 09:55:00* Test Item Value Reference Range Interpretation Comments Lipase (test code = 3040-3) 75 8-78 [facility] HospitalCHEST SINGLE (PORTABLE)2019-04-15 09:32:00 [facility] [address] [address] Patient Name: YUE RAMSEY MR #: [id number] : 1935 Age/Sex: 83/F Req #: [id number] Adm Physician: Ordered by: GIRISH BROWN MD Report #: [id number] Location: ER Room/Bed: Procedure: [id number] D X/CHEST SINGLE (PORTABLE) Exam Date: 04/15/19 [...] 04/15 COPY TO: GIRISH BROWN MD Urine CSB6077-79-68 09:29:00 * Test Item Value Reference Range Interpretation Comments Urine WBC (test code = 5821-4) 6-10 0-5 H [facility] HospitalU[facility] XBL8279-61-54 09:29:00* Test Item Value Reference Range Interpretation Comments Urine RBC (test code = 42572-4) 0-5 0-5 [facility] HospitalUrine Uegdhadf2801-33-78 09:29:00* Test Item Value Reference Range Interpretation Comments Urine Bacteria (test code = 28849-2) MANY NONE H [facility] HospitalU[facility] Epithelial Hjvgb2811-92-59 09:29:00 * Test Item Value Reference Range Interpretation Comments Urine Epithelial Cells (test code = 48523-3) MODERATE NONE [facility] HospitalUrine Amorphous Lscpsygb6442-99-78 09:29:00* Test Item Value Reference Range Interpretation Comments Urine Amorphous Sediment (test code = 8246-1) FEW FEW [facility] HospitalUrine Hyaline Jzqsi6237-78-41 09:29:00* Test Item Value Reference Range Interpretation Comments Urine Hyaline Casts (test code = 50303-3) 0-1 0-1 [facility] HospitalUrine Coarse Granular Brxrc2397-07-40 09:29:00* Test Item Value Reference Range Interpretation Comments Urine Coarse Granular Casts (test code = 24198-3) 1-5 >0 H [facility] HospitalUrine Qxqvk0704-82-08 09:29:00* Test Item Value Reference Range Interpretation Comments Urine Mucus (test code = 8247-9) MODERATE RARE H [facility] HospitalUrine Amorphous Zppyyrud6505-62-72 09:29:00* Test Item Value Reference Range Interpretation Comments Urine Amorphous Sediment (test code = 8246-1) FEW FEW [facility] HospitalU[facility] Hyaline Lxzqi7364-59-48 09:29:00* Test Item Value Reference Range Interpretation Comments Urine Hyaline Casts (test code = 96856-2) 0-1 0-1 [facility] Coarse Granular Wbfvx1445-87-63 09:29:00* Test Item Value Reference Range Interpretation Comments Urine Coarse Granular Casts (test code = 34163-2) 1-5 >0 H [facility] HospitalU[facility] Atrtv9185-77-06 09:29:00* Test Item Value Reference Range Interpretation Comments Urine Mucus (test code = 8247-9) MODERATE RARE H [facility] Amorphous Apssmqpc8629-91-84 09:29:00* Test Item Value Reference Range Interpretation Comments Urine Amorphous Sediment (test code = 8246-1) FEW FEW [facility] Hyaline [id number] 09:29:00* Test Item Value Reference Range Interpretation Comments Urine Hyaline Casts (test code = 47663-5) 0-1 0-1 [facility] Coarse Granular Pkehw4896-62-62 09:29:00* Test Item Value Reference Range Interpretation Comments Urine Coarse Granular Casts (test code = 87876-4) 1-5 >0 H [facility] Pbegw5287-46-24 09:29:00* Test Item Value Reference Range Interpretation Comments Urine Mucus (test code = 8247-9) MODERATE RARE H [facility] Amorphous Sgkhxesn1673-76-40 09:29:00* Test Item Value Reference Range Interpretation Comments Urine Amorphous Sediment (test code = 8246-1) FEW FEW [facility] Hyaline Tytfs7826-71-24 09:29:00* Test Item Value Reference Range Interpretation Comments Urine Hyaline Casts (test code = 42612-1) 0-1 0-1 [facility] Coarse Granular Wvtds8284-86-75 09:29:00* Test Item Value Reference Range Interpretation Comments Urine Coarse Granular Casts (test code = 24347-5) 1-5 >0 [facility] Wxcka9126-84-13 09:29:00* Test Item Value Reference Range Interpretation Comments Urine Mucus (test code = 8247-9) MODERATE RARE H [facility] Amorphous Ttmrizoj8375-36-41 09:29:00* Test Item Value Reference Range Interpretation Comments Urine Amorphous Sediment (test code = 8246-1) [facility] Dxgka8216-12-96 09:29:00* Test Item Value Reference Range Interpretation Comments Urine Hyaline Casts (test code = 02277-9) 0-1 0-1 [facility] Granular Ahabf5617-72-96 09:29:00* Test Item Value Reference Range Interpretation Comments Urine Coarse Granular Casts (test code = 46785-8) 1-5 >0 [facility] Mmbtm4900-80-28 09:29:00* Test Item Value Reference Range Interpretation Comments Urine Mucus (test code = 8247-9) MODERATE RARE H [facility] Amorphous Guyvpezf6564-84-86 09:29:00* Test Item Value Reference Range Interpretation Comments Urine Amorphous Sediment (test code = 8246-1) [facility] Cymuo4404-66-16 09:29:00* Test Item Value Reference Range Interpretation Comments Urine Hyaline Casts (test code = 86897-9) 0-1 0-1 [facility] Coarse Granular Rubce0013-76-56 09:29:00* Test Item Value Reference Range Interpretation Comments Urine Coarse Granular Casts (test code = 18668-6) 1-5 >0 [facility] Hkwec5020-72-76 09:29:00* Test Item Value Reference Range Interpretation Comments Urine Mucus (test code = 8247-9) MODERATE RARE H [facility] Amorphous Wyjgptjl3468-54-45 09:29:00* Test Item Value Reference Range Interpretation Comments Urine Amorphous Sediment (test code = 8246-1) [facility] Kckjr2567-59-11 09:29:00* Test Item Value Reference Range Interpretation Comments Urine Hyaline Casts (test code = 01745-9) 0-1 0-1 [facility] Coarse Granular Lvojp2937-43-03 09:29:00* Test Item Value Reference Range Interpretation Comments Urine Coarse Granular Casts (test code = 17342-1) 1-5 >0 H [facility] Ewbgu3669-40-98 09:29:00* Test Item Value Reference Range Interpretation Comments Urine Mucus (test code = 8247-9) MODERATE RARE H [facility] Amorphous Xzqtqxqr2385-39-37 09:29:00* Test Item Value Reference Range Interpretation Comments Urine Amorphous Sediment (test code = 8246-1) [facility]W [facility]aline Icmoi2962-65-77 09:29:00* Test Item Value Reference Range Interpretation Comments Urine Hyaline Casts (test code = 06151-1) 0-1 0-1 [facility] Coarse Granular Lgqyp0265-70-91 09:29:00* Test Item Value Reference Range Interpretation Comments Urine Coarse Granular Casts (test code = 43762-2) 1-5 >0 H [facility] Qwmbc5513-40-26 09:29:00* Test Item Value Reference Range Interpretation Comments Urine Mucus (test code = 8247-9) MODERATE RARE H [facility] HospitalProthrombin Xrcg4988-52-00 09:25:00* Test Item Value Reference Range Interpretation Comments Prothrombin Time (test code = 5902-2) 12.7 11.9-14.5 [facility] HospitalProthromb Time International Ratio 2019-04-15 09:25:00* Test Item Value Reference Range Interpretation Comments Prothromb Time International Ratio (test code = 6301-6) 0.91 Oral Anticoagulant Therapy INR Values:1. Low Intensity Therapy 1.5 - 2.02 . Moderate Intensity Therapy 2.0 - 3.03. High Intensity Therapy(1) 2.5 - 3. 54. High Intensity Therapy(2) 3.0 - 4.05. Panic Value INR > 5.0 [facility] Partial Thromboplast Time 2019-04-15 09:25:00* Test Item Value Reference Range Interpretation Comments Activated Partial Thromboplast Time (test code = 19285-0) 31.4 23.8-35.5 [facility] HospitalProthrombin [id number] 09:25:00* Test Item Value Reference Range Interpretation Comments Prothrombin Time (test code = 5902-2) 12.7 11.9-14.5 [facility] HospitalProthromb Time International Ratio 2019-04-15 09:25:00* Test Item Value Reference Range Interpretation Comments Prothromb Time International Ratio (test code = 6301-6) 0.91 Oral Anticoagulant Therapy INR Values:1. Low Intensity Therapy 1.5 - 2.02 . Moderate Intensity Therapy 2.0 - 3.03. High Intensity Therapy(1) 2.5 - 3. 54. High Intensity Therapy(2) 3.0 - 4.05. Panic Value INR > 5.0 [facility] Partial Thromboplast Time 2019-04-15 09:25:00* Test Item Value Reference Range Interpretation Comments Activated Partial Thromboplast Time (test code = 67908-0) 31.4 23.8-35.5 [facility] HospitalProthrombin [id number] 09:25:00* Test Item Value Reference Range Interpretation Comments Prothrombin Time (test code = 5902-2) 12.7 11.9-14.5 [facility] HospitalProthromb Time International Ratio 2019-04-15 09:25:00* Test Item Value Reference Range Interpretation Comments Prothromb Time International Ratio (test code = 6301-6) 0.91 Oral Anticoagulant Therapy INR Values:1. Low Intensity Therapy 1.5 - 2.02 . Moderate Intensity Therapy 2.0 - 3.03. High Intensity Therapy(1) 2.5 - 3. 54. High Intensity Therapy(2) 3.0 - 4.05. Panic Value INR > 5.0 [facility] Partial Thromboplast Time 2019-04-15 09:25:00* Test Item Value Reference Range Interpretation Comments Activated Partial Thromboplast Time (test code = 50595-9) 31.4 23.8-35.5 [facility] HospitalProthrombin [id number] 09:25:00* Test Item Value Reference Range Interpretation Comments Prothrombin Time (test code = 5902-2) 12.7 11.9-14.5 [facility] HospitalProthromb Time International Ratio 2019-04-15 09:25:00* Test Item Value Reference Range Interpretation Comments Prothromb Time International Ratio (test code = 6301-6) 0.91 Oral Anticoagulant Therapy INR Values:1. Low Intensity Therapy 1.5 - 2.02 . Moderate Intensity Therapy 2.0 - 3.03. High Intensity Therapy(1) 2.5 - 3. 54. High Intensity Therapy(2) 3.0 - 4.05. Panic Value INR > 5.0 [facility] Partial Thromboplast Time 2019-04-15 09:25:00* Test Item Value Reference Range Interpretation Comments Activated Partial Thromboplast Time (test code = 59909-9) 31.4 23.8-35.5 [facility] HospitalProthrombin Wmrg2711-56-27 09:25:00* Test Item Value Reference Range Interpretation Comments Prothrombin Time (test code = 5902-2) 12.7 11.9-14.5 [facility] HospitalProthromb Time International Ratio 2019-04-15 09:25:00* Test Item Value Reference Range Interpretation Comments Prothromb Time International Ratio (test code = 6301-6) 0.91 Oral Anticoagulant Therapy INR Values:1. Low Intensity Therapy 1.5 - 2.02 . Moderate Intensity Therapy 2.0 - 3.03. High Intensity Therapy(1) 2.5 - 3. 54. High Intensity Therapy(2) 3.0 - 4.05. Panic Value INR > 5.0 [facility] Partial Thromboplast Time 2019-04-15 09:25:00* Test Item Value Reference Range Interpretation Comments Activated Partial Thromboplast Time (test code = 70808-7) 31.4 23.8-35.5 [facility] HospitalProthrombin [id number] 09:25:00* Test Item Value Reference Range Interpretation Comments Prothrombin Time (test code = 5902-2) 12.7 11.9-14.5 [facility] HospitalProthromb Time International Ratio 2019-04-15 09:25:00* Test Item Value Reference Range Interpretation Comments Prothromb Time International Ratio (test code = 6301-6) 0.91 Oral Anticoagulant Therapy INR Values:1. Low Intensity Therapy 1.5 - 2.02 . Moderate Intensity Therapy 2.0 - 3.03. High Intensity Therapy(1) 2.5 - 3. 54. High Intensity Therapy(2) 3.0 - 4.05. Panic Value INR > 5.0 [facility]Act[facility] Partial Thromboplast Time 2019-04-15 09:25:00* Test Item Value Reference Range Interpretation Comments Activated Partial Thromboplast Time (test code = 81138-6) 31.4 23.8-35.5 [facility] Hospital[facility] Uoouu2068-18-96 09:19:00* Test Item Value Reference Range Interpretation Comments Urine Color (test code = 5778-6) YELLOW YELLOW [facility] Fgdktva4108-25-27 09:19:00* Test Item Value Reference Range Interpretation Comments Urine Clarity (test code = 74300-1) SL CLOUDY CLEAR [facility] HospitalU[facility] Specific Hspbgzn4298-75-51 09:19:00 * Test Item Value Reference Range Interpretation Comments Urine Specific [place] (test code = 5811-5) 1.010 1.010-1.02 5 [facility] [id number] 09:19:00* Test Item Value Reference Range Interpretation Comments Urine pH (test code = 94337-6) 8.5 5-7 [facility] Leukocyte Inyqchet3549-64-76 09:19:00* Test Item Value Reference Range Interpretation Comments Urine Leukocyte Esterase (test code = 06259-8) NEGATIVE NEGATIV E [facility] Vouzcwz8246-84-58 09:19:00* Test Item Value Reference Range Interpretation Comments Urine Nitrite (test code = 21804-1) NEGATIVE NEGATIVE [facility] Mdnoygx1270-13-40 09:19:00* Test Item Value Reference Range Interpretation Comments Urine Protein (test code = 44453-7) NEGATIVE NEGATIVE [facility] Glucose (UA)2019-04-15 09:19:00* Test Item Value Reference Range Interpretation Comments Urine Glucose (UA) (test code = 89527-5) NEGATIVE NEGATIVE [facility] Xkdzinh4315-42-34 09:19:00* Test Item Value Reference Range Interpretation Comments Urine Ketones (test code = 33059-8) NEGATIVE NEGATIVE [facility] Crnmzinehbfc0282-82-48 09:19:00* Test Item Value Reference Range Interpretation Comments Urine Urobilinogen (test code = 68460-4) 0.2 0.2-1 [facility] Vfoiwvdfc8428-43-20 09:19:00* Test Item Value Reference Range Interpretation Comments Urine Bilirubin (test code = 1977-8) NEGATIVE NEGATIVE [facility] Xhfni6600-51-92 09:19:00* Test Item Value Reference Range Interpretation Comments Urine Blood (test code = 31740-4) NEGATIVE NEGATIVE [facility] HospitalWhite Blood Sairn2220-29-24 09:18:00* Test Item Value Reference Range Interpretation Comments White Blood Count (test code = 6690-2) 8.56 4.8-10.8 [facility] HospitalRed Blood Cgibk8445-61-30 09:18:00* Test Item Value Reference Range Interpretation Comments Red Blood Count (test code = 789-8) 4.49 3.6-5.1 [facility] HospitalHemoglobin2019-11-21 09:18:00* Test Item Value Reference Range Interpretation Comments Hemoglobin (test code = 63905-4) 13.8 12.0-16.0 [facility] HospitalHematocrit2019-11-21 09:18:00* Test Item Value Reference Range Interpretation Comments Hematocrit (test code = 4544-3) 41.1 34.2-44.1 [facility] HospitalMean Corpuscular Hmobof7533-91-89 09:18:00* Test Item Value Reference Range Interpretation Comments Mean Corpuscular Volume (test code = 787-2) 91.5 81-99 [facility] HospitalMean Corpuscular Gfvkxsnpvh8201-49-13 09:18:00* Test Item Value Reference Range Interpretation Comments Mean Corpuscular Hemoglobin (test code = 785-6) 30.7 28-32 [facility] HospitalMean Corpuscular Hemoglobin Concent 2019-04-15 09:18:00* Test Item Value Reference Range Interpretation Comments Mean Corpuscular Hemoglobin Concent (test code = 786-4) 33.6 31-35 [facility] HospitalRed Cell Distribution Banzb5191-02-63 09:18:00* Test Item Value Reference Range Interpretation Comments Red Cell Distribution Width (test code = 48437-3) 13.1 11.7 -14.4 [facility] HospitalPlatelet Prncs7082-03-12 09:18:00* Test Item Value Reference Range Interpretation Comments Platelet Count (test code = 777-3) 248 140-360 [facility] HospitalNeutrophils (%) (Auto)2019-04-15 09:18:00 * Test Item Value Reference Range Interpretation Comments Neutrophils (%) (Auto) (test code = 34798-8) 65.8 38.7-80.0 [facility] HospitalLymphocytes (%) (Auto)2019-04-15 09:18:00 * Test Item Value Reference Range Interpretation Comments Lymphocytes (%) (Auto) (test code = 736-9) 22.1 18.0-39.1 [facility] HospitalMonocytes (%) (Auto)2019-04-15 09:18:00* Test Item Value Reference Range Interpretation Comments Monocytes (%) (Auto) (test code = 5905-5) 8.9 4.4-11.3 [facility] HospitalEosinophils (%) (Auto)2019-04-15 09:18:00 * Test Item Value Reference Range Interpretation Comments Eosinophils (%) (Auto) (test code = 713-8) 2.0 0.0-6.0 [facility] HospitalBasophils (%) (Auto)2019-04-15 09:18:00* Test Item Value Reference Range Interpretation Comments Basophils (%) (Auto) (test code = 706-2) 0.8 0.0-1.0 [facility] HospitalIM GRANULOCYTES %2019-04-15 09:18:00* Test Item Value Reference Range Interpretation Comments IM GRANULOCYTES % (test code = IM GRANULOCYTES %) 0.4 0.0- 1.0 [facility] HospitalNeutrophils # (Auto)2019-04-15 09:18:00* Test Item Value Reference Range Interpretation Comments Neutrophils # (Auto) (test code = 751-8) 5.6 2.1-6.9 [facility] HospitalLymphocytes # (Auto)2019-04-15 09:18:00* Test Item Value Reference Range Interpretation Comments Lymphocytes # (Auto) (test code = 68210-7) 1.9 1.0-3.2 [facility] HospitalMonocytes # (Auto)2019-04-15 09:18:00* Test Item Value Reference Range Interpretation Comments Monocytes # (Auto) (test code = 742-7) 0.8 0.2-0.8 [facility] HospitalEosinophils # (Auto)2019-04-15 09:18:00* Test Item Value Reference Range Interpretation Comments Eosinophils # (Auto) (test code = 711-2) 0.2 0.0-0.4 [facility] HospitalBasophils # (Auto)2019-04-15 09:18:00* Test Item Value Reference Range Interpretation Comments Basophils # (Auto) (test code = 704-7) 0.1 0.0-0.1 [facility] HospitalAbsolute Immature Granulocyte (auto 2019-04-15 09:18:00* Test Item Value Reference Range Interpretation Comments Absolute Immature Granulocyte (auto (anjali t code = Absolute Immature Granulocyte (auto) 0.03 0-0.1 [facility] HospitalWhite Blood Uubdp5365-53-06 09:18:00* Test Item Value Reference Range Interpretation Comments White Blood Count (test code = 6690-2) 8.56 4.8-10.8 [facility] HospitalRed Blood Jcaxg3706-68-44 09:18:00* Test Item Value Reference Range Interpretation Comments Red Blood Count (test code = 789-8) 4.49 3.6-5.1 [facility] HospitalHemoglobin2019-11-21 09:18:00* Test Item Value Reference Range Interpretation Comments Hemoglobin (test code = 67070-8) 13.8 12.0-16.0 [facility] HospitalHematocrit2019-11-21 09:18:00* Test Item Value Reference Range Interpretation Comments Hematocrit (test code = 4544-3) 41.1 34.2-44.1 [facility] HospitalMean Corpuscular Jvdrac3004-20-01 09:18:00* Test Item Value Reference Range Interpretation Comments Mean Corpuscular Volume (test code = 787-2) 91.5 81-99 [facility] HospitalMean Corpuscular Vcgurwbuur3853-11-82 09:18:00* Test Item Value Reference Range Interpretation Comments Mean Corpuscular Hemoglobin (test code = 785-6) 30.7 28-32 [facility] HospitalMean Corpuscular Hemoglobin Concent 2019-04-15 09:18:00* Test Item Value Reference Range Interpretation Comments Mean Corpuscular Hemoglobin Concent (test code = 786-4) 33.6 31-35 [facility] HospitalRed Cell Distribution Eevga2531-22-10 09:18:00* Test Item Value Reference Range Interpretation Comments Red Cell Distribution Width (test code = 32632-9) 13.1 11.7 -14.4 [facility] HospitalPlatelet Bcxei3835-81-51 09:18:00* Test Item Value Reference Range Interpretation Comments Platelet Count (test code = 777-3) 248 140-360 [facility] HospitalNeutrophils (%) (Auto)2019-04-15 09:18:00 * Test Item Value Reference Range Interpretation Comments Neutrophils (%) (Auto) (test code = 66277-1) 65.8 38.7-80.0 [facility] HospitalLymphocytes (%) (Auto)2019-04-15 09:18:00 * Test Item Value Reference Range Interpretation Comments Lymphocytes (%) (Auto) (test code = 736-9) 22.1 18.0-39.1 [facility] HospitalMonocytes (%) (Auto)2019-04-15 09:18:00* Test Item Value Reference Range Interpretation Comments Monocytes (%) (Auto) (test code = 5905-5) 8.9 4.4-11.3 [facility] HospitalEosinophils (%) (Auto)2019-04-15 09:18:00 * Test Item Value Reference Range Interpretation Comments Eosinophils (%) (Auto) (test code = 713-8) 2.0 0.0-6.0 [facility] HospitalBasophils (%) (Auto)2019-04-15 09:18:00* Test Item Value Reference Range Interpretation Comments Basophils (%) (Auto) (test code = 706-2) 0.8 0.0-1.0 [facility] HospitalIM GRANULOCYTES %2019-04-15 09:18:00* Test Item Value Reference Range Interpretation Comments IM GRANULOCYTES % (test code = IM GRANULOCYTES %) 0.4 0.0- 1.0 [facility] HospitalNeutrophils # (Auto)2019-04-15 09:18:00* Test Item Value Reference Range Interpretation Comments Neutrophils # (Auto) (test code = 751-8) 5.6 2.1-6.9 [facility] HospitalLymphocytes # (Auto)2019-04-15 09:18:00* Test Item Value Reference Range Interpretation Comments Lymphocytes # (Auto) (test code = 58055-6) 1.9 1.0-3.2 [facility] HospitalMonocytes # (Auto)2019-04-15 09:18:00* Test Item Value Reference Range Interpretation Comments Monocytes # (Auto) (test code = 742-7) 0.8 0.2-0.8 [facility] HospitalEosinophils # (Auto)2019-04-15 09:18:00* Test Item Value Reference Range Interpretation Comments Eosinophils # (Auto) (test code = 711-2) 0.2 0.0-0.4 [facility] HospitalBasophils # (Auto)2019-04-15 09:18:00* Test Item Value Reference Range Interpretation Comments Basophils # (Auto) (test code = 704-7) 0.1 0.0-0.1 [facility] HospitalAbsolute Immature Granulocyte (auto 2019-04-15 09:18:00* Test Item Value Reference Range Interpretation Comments Absolute Immature Granulocyte (auto (anjali t code = Absolute Immature Granulocyte (auto) 0.03 0-0.1 [facility] HospitalWhite Blood Lrfjr5166-77-70 09:18:00* Test Item Value Reference Range Interpretation Comments White Blood Count (test code = 6690-2) 8.56 4.8-10.8 [facility] HospitalRed Blood Cwbzc3340-38-89 09:18:00* Test Item Value Reference Range Interpretation Comments Red Blood Count (test code = 789-8) 4.49 3.6-5.1 [facility] HospitalHemoglobin2019-11-21 09:18:00* Test Item Value Reference Range Interpretation Comments Hemoglobin (test code = 56318-1) 13.8 12.0-16.0 [facility] HospitalHematocrit2019-11-21 09:18:00* Test Item Value Reference Range Interpretation Comments Hematocrit (test code = 4544-3) 41.1 34.2-44.1 [facility] HospitalMean Corpuscular Bdjzcy6159-41-46 09:18:00* Test Item Value Reference Range Interpretation Comments Mean Corpuscular Volume (test code = 787-2) 91.5 81-99 [facility] HospitalMean Corpuscular Lnlqvvrgdm1297-58-51 09:18:00* Test Item Value Reference Range Interpretation Comments Mean Corpuscular Hemoglobin (test code = 785-6) 30.7 28-32 [facility] HospitalMean Corpuscular Hemoglobin Concent 2019-04-15 09:18:00* Test Item Value Reference Range Interpretation Comments Mean Corpuscular Hemoglobin Concent (test code = 786-4) 33.6 31-35 [facility] HospitalRed Cell Distribution Anohd9548-79-43 09:18:00* Test Item Value Reference Range Interpretation Comments Red Cell Distribution Width (test code = 35587-2) 13.1 11.7 -14.4 [facility] HospitalPlatelet Fufma6003-32-04 09:18:00* Test Item Value Reference Range Interpretation Comments Platelet Count (test code = 777-3) 248 140-360 [facility] HospitalNeutrophils (%) (Auto)2019-04-15 09:18:00 * Test Item Value Reference Range Interpretation Comments Neutrophils (%) (Auto) (test code = 96641-4) 65.8 38.7-80.0 [facility] HospitalLymphocytes (%) (Auto)2019-04-15 09:18:00 * Test Item Value Reference Range Interpretation Comments Lymphocytes (%) (Auto) (test code = 736-9) 22.1 18.0-39.1 [facility] HospitalMonocytes (%) (Auto)2019-04-15 09:18:00* Test Item Value Reference Range Interpretation Comments Monocytes (%) (Auto) (test code = 5905-5) 8.9 4.4-11.3 [facility] HospitalEosinophils (%) (Auto)2019-04-15 09:18:00 * Test Item Value Reference Range Interpretation Comments Eosinophils (%) (Auto) (test code = 713-8) 2.0 0.0-6.0 [facility] HospitalBasophils (%) (Auto)2019-04-15 09:18:00* Test Item Value Reference Range Interpretation Comments Basophils (%) (Auto) (test code = 706-2) 0.8 0.0-1.0 [facility] HospitalIM GRANULOCYTES %2019-04-15 09:18:00* Test Item Value Reference Range Interpretation Comments IM GRANULOCYTES % (test code = IM GRANULOCYTES %) 0.4 0.0- 1.0 [facility] HospitalNeutrophils # (Auto)2019-04-15 09:18:00* Test Item Value Reference Range Interpretation Comments Neutrophils # (Auto) (test code = 751-8) 5.6 2.1-6.9 [facility] HospitalLymphocytes # (Auto)2019-04-15 09:18:00* Test Item Value Reference Range Interpretation Comments Lymphocytes # (Auto) (test code = 24703-8) 1.9 1.0-3.2 [facility] HospitalMonocytes # (Auto)2019-04-15 09:18:00* Test Item Value Reference Range Interpretation Comments Monocytes # (Auto) (test code = 742-7) 0.8 0.2-0.8 [facility] HospitalEosinophils # (Auto)2019-04-15 09:18:00* Test Item Value Reference Range Interpretation Comments Eosinophils # (Auto) (test code = 711-2) 0.2 0.0-0.4 [facility] HospitalBasophils # (Auto)2019-04-15 09:18:00* Test Item Value Reference Range Interpretation Comments Basophils # (Auto) (test code = 704-7) 0.1 0.0-0.1 [facility] HospitalAbsolute Immature Granulocyte (auto 2019-04-15 09:18:00* Test Item Value Reference Range Interpretation Comments Absolute Immature Granulocyte (auto (anjali t code = Absolute Immature Granulocyte (auto) 0.03 0-0.1 [facility] HospitalWhite Blood Uskzr2278-45-60 09:18:00* Test Item Value Reference Range Interpretation Comments White Blood Count (test code = 6690-2) 8.56 4.8-10.8 [facility] HospitalRed Blood Obwev7684-93-83 09:18:00* Test Item Value Reference Range Interpretation Comments Red Blood Count (test code = 789-8) 4.49 3.6-5.1 [facility] HospitalHemoglobin2019-11-21 09:18:00* Test Item Value Reference Range Interpretation Comments Hemoglobin (test code = 73148-8) 13.8 12.0-16.0 [facility] HospitalHematocrit2019-11-21 09:18:00* Test Item Value Reference Range Interpretation Comments Hematocrit (test code = 4544-3) 41.1 34.2-44.1 [facility] HospitalMean Corpuscular Hjrcgh0528-66-65 09:18:00* Test Item Value Reference Range Interpretation Comments Mean Corpuscular Volume (test code = 787-2) 91.5 81-99 [facility] HospitalMean Corpuscular Ijvvsgifcp6023-81-39 09:18:00* Test Item Value Reference Range Interpretation Comments Mean Corpuscular Hemoglobin (test code = 785-6) 30.7 28-32 [facility] HospitalMean Corpuscular Hemoglobin Concent 2019-04-15 09:18:00* Test Item Value Reference Range Interpretation Comments Mean Corpuscular Hemoglobin Concent (test code = 786-4) 33.6 31-35 [facility] HospitalRed Cell Distribution Jsxcr6728-74-68 09:18:00* Test Item Value Reference Range Interpretation Comments Red Cell Distribution Width (test code = 45193-6) 13.1 11.7 -14.4 [facility] HospitalPlatelet Gvkih7857-86-75 09:18:00* Test Item Value Reference Range Interpretation Comments Platelet Count (test code = 777-3) 248 140-360 [facility] HospitalNeutrophils (%) (Auto)2019-04-15 09:18:00 * Test Item Value Reference Range Interpretation Comments Neutrophils (%) (Auto) (test code = 23973-3) 65.8 38.7-80.0 [facility] HospitalLymphocytes (%) (Auto)2019-04-15 09:18:00 * Test Item Value Reference Range Interpretation Comments Lymphocytes (%) (Auto) (test code = 736-9) 22.1 18.0-39.1 [facility] (%) (Auto)2019-04-15 09:18:00* Test Item Value Reference Range Interpretation Comments Monocytes (%) (Auto) (test code = 5905-5) 8.9 4.4-11.3 [facility] HospitalEosinophils (%) (Auto)2019-04-15 09:18:00 * Test Item Value Reference Range Interpretation Comments Eosinophils (%) (Auto) (test code = 713-8) 2.0 0.0-6.0 [facility] HospitalBasophils (%) (Auto)2019-04-15 09:18:00* Test Item Value Reference Range Interpretation Comments Basophils (%) (Auto) (test code = 706-2) 0.8 0.0-1.0 [facility] HospitalIM GRANULOCYTES %2019-04-15 09:18:00* Test Item Value Reference Range Interpretation Comments IM GRANULOCYTES % (test code = IM GRANULOCYTES %) 0.4 0.0- 1.0 [facility] HospitalNeutrophils # (Auto)2019-04-15 09:18:00* Test Item Value Reference Range Interpretation Comments Neutrophils # (Auto) (test code = 751-8) 5.6 2.1-6.9 [facility] HospitalLymphocytes # (Auto)2019-04-15 09:18:00* Test Item Value Reference Range Interpretation Comments Lymphocytes # (Auto) (test code = 04461-9) 1.9 1.0-3.2 [facility] HospitalMonocytes # (Auto)2019-04-15 09:18:00* Test Item Value Reference Range Interpretation Comments Monocytes # (Auto) (test code = 742-7) 0.8 0.2-0.8 [facility] HospitalEosinophils # (Auto)2019-04-15 09:18:00* Test Item Value Reference Range Interpretation Comments Eosinophils # (Auto) (test code = 711-2) 0.2 0.0-0.4 [facility] HospitalBasophils # (Auto)2019-04-15 09:18:00* Test Item Value Reference Range Interpretation Comments Basophils # (Auto) (test code = 704-7) 0.1 0.0-0.1 [facility] HospitalAbsolute Immature Granulocyte (auto 2019-04-15 09:18:00* Test Item Value Reference Range Interpretation Comments Absolute Immature Granulocyte (auto (anjali t code = Absolute Immature Granulocyte (auto) 0.03 0-0.1 [facility] HospitalWhite Blood Wcpun1079-72-33 09:18:00* Test Item Value Reference Range Interpretation Comments White Blood Count (test code = 6690-2) 8.56 4.8-10.8 [facility] HospitalRed Blood Pclhk3609-94-16 09:18:00* Test Item Value Reference Range Interpretation Comments Red Blood Count (test code = 789-8) 4.49 3.6-5.1 [facility] HospitalHemoglobin2019-11-21 09:18:00* Test Item Value Reference Range Interpretation Comments Hemoglobin (test code = 96982-6) 13.8 12.0-16.0 [facility] HospitalHematocrit2019-11-21 09:18:00* Test Item Value Reference Range Interpretation Comments Hematocrit (test code = 4544-3) 41.1 34.2-44.1 [facility] HospitalMean Corpuscular Zrtxhm5746-28-47 09:18:00* Test Item Value Reference Range Interpretation Comments Mean Corpuscular Volume (test code = 787-2) 91.5 81-99 [facility] HospitalMean Corpuscular Pazngvzgmx5751-59-89 09:18:00* Test Item Value Reference Range Interpretation Comments Mean Corpuscular Hemoglobin (test code = 785-6) 30.7 28-32 [facility] Hem[facility] Concent 2019-04-15 09:18:00* Test Item Value Reference Range Interpretation Comments Mean Corpuscular Hemoglobin Concent (test code = 786-4) 33.6 31-35 [facility] HospitalRed Cell Distribution Xkjch9578-14-64 09:18:00* Test Item Value Reference Range Interpretation Comments Red Cell Distribution Width (test code = 34425-1) 13.1 11.7 -14.4 [facility] HospitalPlatelet Wjfdw2947-50-46 09:18:00* Test Item Value Reference Range Interpretation Comments Platelet Count (test code = 777-3) 248 140-360 [facility] HospitalNeutrophils (%) (Auto)2019-04-15 09:18:00 * Test Item Value Reference Range Interpretation Comments Neutrophils (%) (Auto) (test code = 40167-6) 65.8 38.7-80.0 [facility] HospitalLymphocytes (%) (Auto)2019-04-15 09:18:00 * Test Item Value Reference Range Interpretation Comments Lymphocytes (%) (Auto) (test code = 736-9) 22.1 18.0-39.1 [facility] HospitalMonocytes (%) (Auto)2019-04-15 09:18:00* Test Item Value Reference Range Interpretation Comments Monocytes (%) (Auto) (test code = 5905-5) 8.9 4.4-11.3 [facility] HospitalEosinophils (%) (Auto)2019-04-15 09:18:00 * Test Item Value Reference Range Interpretation Comments Eosinophils (%) (Auto) (test code = 713-8) 2.0 0.0-6.0 [facility] HospitalBasophils (%) (Auto)2019-04-15 09:18:00* Test Item Value Reference Range Interpretation Comments Basophils (%) (Auto) (test code = 706-2) 0.8 0.0-1.0 [facility] HospitalIM GRANULOCYTES %2019-04-15 09:18:00* Test Item Value Reference Range Interpretation Comments IM GRANULOCYTES % (test code = IM GRANULOCYTES %) 0.4 0.0- 1.0 [facility] HospitalNeutrophils # (Auto)2019-04-15 09:18:00* Test Item Value Reference Range Interpretation Comments Neutrophils # (Auto) (test code = 751-8) 5.6 2.1-6.9 [facility] HospitalLymphocytes # (Auto)2019-04-15 09:18:00* Test Item Value Reference Range Interpretation Comments Lymphocytes # (Auto) (test code = 96912-1) 1.9 1.0-3.2 [facility] HospitalMonocytes # (Auto)2019-04-15 09:18:00* Test Item Value Reference Range Interpretation Comments Monocytes # (Auto) (test code = 742-7) 0.8 0.2-0.8 [facility] HospitalEosinophils # (Auto)2019-04-15 09:18:00* Test Item Value Reference Range Interpretation Comments Eosinophils # (Auto) (test code = 711-2) 0.2 0.0-0.4 [facility] HospitalBasophils # (Auto)2019-04-15 09:18:00* Test Item Value Reference Range Interpretation Comments Basophils # (Auto) (test code = 704-7) 0.1 0.0-0.1 [facility] HospitalAbsolute Immature Granulocyte (auto 2019-04-15 09:18:00* Test Item Value Reference Range Interpretation Comments Absolute Immature Granulocyte (auto (anjali t code = Absolute Immature Granulocyte (auto) 0.03 0-0.1 [facility] HospitalAmorphous sediment detection in urine sediment by light jqmitdjpex6191-28-24 08:00:00* Test Item Value Reference Range Interpretation Comments Urine Amorphous Sediment (test code = 8246-1) FEW FEW [facility] HospitalHyaline casts detection in urine sediment by light osrreiwwyf6585-51-45 08:00:00* Test Item Value Reference Range Interpretation Comments Urine Hyaline Casts (test code = 29297-5) 0-1 0-1 [facility] HospitalCoarse granular casts detection in urine sediment by light ablxekates4082-48-46 08:00:00* Test Item Value Reference Range Interpretation Comments Urine Coarse Granular Casts (test code = 70769-0) 1-5 >0 [facility] HospitalMucus detection in urine sediment by light cljixpsnsn2504-52-14 08:00:00* Test Item Value Reference Range Interpretation Comments Urine Mucus (test code = 8247-9) MODERATE RARE [facility] plasma magnesium measurement (mass/volume)2019-04-15 08:00:00* Test Item Value Reference Range Interpretation Comments Magnesium Level (test code = 58215-9) 2.1 1.3-2.1 [facility] Hospitalerum or plasma lipase measurement (enzymatic activity/volume)2019-04-15 08:00:00* Test Item Value Reference Range Interpretation Comments Lipase (test code = 3040-3) 75 8-78 [facility] HospitalAmorphous sediment detection in urine sediment by light tyvxwlyntj1476-66-84 08:00:00* Test Item Value Reference Range Interpretation Comments Urine Amorphous Sediment (test code = 8246-1) FEW FEW [facility] HospitalHyaline casts detection in urine sediment by light kxqhvlbvig5945-93-75 08:00:00* Test Item Value Reference Range Interpretation Comments Urine Hyaline Casts (test code = 23461-8) 0-1 0-1 [facility] HospitalCoarse granular casts detection in urine sediment by light crtbnqxycq5306-14-82 08:00:00* Test Item Value Reference Range Interpretation Comments Urine Coarse Granular Casts (test code = 54668-6) 1-5 >0 [facility] HospitalMucus detection in urine sediment by light jczhhccnre9087-65-56 08:00:00* Test Item Value Reference Range Interpretation Comments Urine Mucus (test code = 8247-9) MODERATE RARE [facility] Hospitalerum or plasma magnesium measurement (mass/volume)2019-04-15 08:00:00* Test Item Value Reference Range Interpretation Comments Magnesium Level (test code = 15912-8) 2.1 1.3-2.1 [facility] Hospitalerum or plasma lipase measurement (enzymatic activity/volume)2019-04-15 08:00:00* Test Item Value Reference Range Interpretation Comments Lipase (test code = 3040-3) 75 8-78 [facility] HospitalBlood Gdsjjow4126-55-18 11:18:00* Test Item Value Reference Range Interpretation Comments Blood Culture (test code = 17082549) NO GROWTH AFTER 5 DAYS, [facility] Utrpwrc3965-79-46 11:18:00* Test Item Value Reference Range Interpretation Comments Blood Culture (test code = 52220170) NO GROWTH AFTER 5 DAYS, FINAL REPORT [facility] Jiwcikr3462-58-79 11:18:00* Test Item Value Reference Range Interpretation Comments Blood Culture (test code = 24804489) NO GROWTH AFTER 5 DAYS, [facility] Yucyjay8173-11-89 11:18:00* Test Item Value Reference Range Interpretation Comments Blood Culture (test code = 06619711) NO GROWTH AFTER 5 DAYS, FINAL REPORT [facility]Bl[facility] Fslkfse9937-38-36 11:18:00* Test Item Value Reference Range Interpretation Comments Blood Culture (test code = 39792133) NO GROWTH AFTER 5 DAYS, FINAL REPORT [facility] Koftzdh0006-11-42 12:00:00* Test Item Value Reference Range Interpretation Comments Bedside Glucose (test code = 68090-5) 142 70-120 H Meter ID: [id number] [facility] [place] Glucose 2018-11-13 12:00:00* Test Item Value Reference Range Interpretation Comments Bedside Glucose (test code = 16229-2) 142 70-120 H Meter ID: [id number] [facility] [place] Glucose 2018-11-13 12:00:00* Test Item Value Reference Range Interpretation Comments Bedside Glucose (test code = 23430-7) 142 70-120 H Meter ID: [id number] [facility] [place] Glucose 2018-11-13 12:00:00* Test Item Value Reference Range Interpretation Comments Bedside Glucose (test code = 16614-4) 142 70-120 H Meter ID: [id number] [facility] [place] Glucose 2018-11-13 12:00:00* Test Item Value Reference Range Interpretation Comments Bedside Glucose (test code = 76388-3) 142 70-120 H Meter ID: [id number] [facility] [place] Glucose 2018-11-13 12:00:00* Test Item Value Reference Range Interpretation Comments Bedside Glucose (test code = 36255-9) 142 70-120 H Meter ID: [id number] [facility] [place] Glucose 2018-11-13 12:00:00* Test Item Value Reference Range Interpretation Comments Bedside Glucose (test code = 13096-9) 142 70-120 H Meter ID: [id number] [facility] [place] Glucose 2018-11-13 12:00:00* Test Item Value Reference Range Interpretation Comments Bedside Glucose (test code = 92288-5) 142 70-120 H Meter ID: [id number] [facility] HospitalBlood Culture 2018-11-11 11:18:00* Test Item Value Reference Range Interpretation Comments Blood Culture (test code = 38300392) NO GROWTH AFTER 24 HOURS [facility] HospitalDifferential Total Cells Counted 2018-11-11 07:27:00* Test Item Value Reference Range Interpretation Comments Differential Total Cells Counted (test code = Differen tial Total Cells Counted) 100 [facility] HospitalNeutrophils % (Manual)2018-11-11 07:27:00 * Test Item Value Reference Range Interpretation Comments Neutrophils % (Manual) (test code = 85852-0) 90 40-74 H [facility] HospitalLymphocytes % (Manual)2018-11-11 07:27:00 * Test Item Value Reference Range Interpretation Comments Lymphocytes % (Manual) (test code = 737-7) 7 19-48 L [facility] HospitalMonocytes % (Manual)2018-11-11 07:27:00* Test Item Value Reference Range Interpretation Comments Monocytes % (Manual) (test code = 744-3) 3 3.4-9.0 L [facility] HospitalPlatelet Obzlusza5464-47-21 07:27:00* Test Item Value Reference Range Interpretation Comments Platelet Estimate (test code = 47621-1) ADEQUATE [facility] HospitalPlatelet Morphology Uqjzgzc1432-36-00 07:27:00* Test Item Value Reference Range Interpretation Comments Platelet Morphology Comment (test code = 93838-3) NORMAL [facility] HospitalRed Cell Morphology Ndfxwwc8441-09-61 07:27:00* Test Item Value Reference Range Interpretation Comments Red Cell Morphology Comment (test code = 6742-1) NORMAL [facility] HospitalDifferential Total Cells Counted 2018-11-11 07:27:00* Test Item Value Reference Range Interpretation Comments Differential Total Cells Counted (test code = Differen tial Total Cells Counted) 100 [facility] HospitalNeutrophils % (Manual)2018-11-11 07:27:00 * Test Item Value Reference Range Interpretation Comments Neutrophils % (Manual) (test code = 69688-8) 90 40-74 H [facility] HospitalLymphocytes % (Manual)2018-11-11 07:27:00 * Test Item Value Reference Range Interpretation Comments Lymphocytes % (Manual) (test code = 737-7) 7 19-48 L [facility] HospitalMonocytes % (Manual)2018-11-11 07:27:00* Test Item Value Reference Range Interpretation Comments Monocytes % (Manual) (test code = 744-3) 3 3.4-9.0 L [facility] HospitalPlatelet Ztznbhrn3907-92-22 07:27:00* Test Item Value Reference Range Interpretation Comments Platelet Estimate (test code = 98963-2) ADEQUATE [place] [facility] HospitalPlatelet Morphology Rqzofnb1203-00-33 07:27:00* Test Item Value Reference Range Interpretation Comments Platelet Morphology Comment (test code = 92491-8) NORMAL [facility] HospitalRed Cell Morphology Rwnmqkt5250-77-91 07:27:00* Test Item Value Reference Range Interpretation Comments Red Cell Morphology Comment (test code = 6742-1) NORMAL [facility] HospitalDifferential Total Cells Counted 2018-11-11 07:27:00* Test Item Value Reference Range Interpretation Comments Differential Total Cells Counted (test code = Julianna bain Total Cells Counted) 100 [facility] HospitalNeutrophils % (Manual)2018-11-11 07:27:00 * Test Item Value Reference Range Interpretation Comments Neutrophils % (Manual) (test code = 26175-3) 90 40-74 H [facility] HospitalLymphocytes % (Manual)2018-11-11 07:27:00 * Test Item Value Reference Range Interpretation Comments Lymphocytes % (Manual) (test code = 737-7) 7 19-48 L [facility] HospitalMonocytes % (Manual)2018-11-11 07:27:00* Test Item Value Reference Range Interpretation Comments Monocytes % (Manual) (test code = 744-3) 3 3.4-9.0 L [facility] HospitalPlatelet Canfcosi9629-21-35 07:27:00* Test Item Value Reference Range Interpretation Comments Platelet Estimate (test code = 15104-3) ADEQUATE [facility] HospitalPlatelet Morphology Xftodaq5269-10-51 07:27:00* Test Item Value Reference Range Interpretation Comments Platelet Morphology Comment (test code = 79291-2) NORMAL [facility] HospitalRed Cell Morphology Wphizux0908-82-62 07:27:00* Test Item Value Reference Range Interpretation Comments Red Cell Morphology Comment (test code = 6742-1) NORMAL [facility] HospitalDifferential Total Cells Counted 2018-11-11 07:27:00* Test Item Value Reference Range Interpretation Comments Differential Total Cells Counted (test code = Differen tial Total Cells Counted) 100 [facility] HospitalNeutrophils % (Manual)2018-11-11 07:27:00 * Test Item Value Reference Range Interpretation Comments Neutrophils % (Manual) (test code = 08811-3) 90 40-74 H [facility] HospitalLymphocytes % (Manual)2018-11-11 07:27:00 * Test Item Value Reference Range Interpretation Comments Lymphocytes % (Manual) (test code = 737-7) 7 19-48 L [facility] HospitalMonocytes % (Manual)2018-11-11 07:27:00* Test Item Value Reference Range Interpretation Comments Monocytes % (Manual) (test code = 744-3) 3 3.4-9.0 L [facility] HospitalPlatelet Orptcsjx7098-78-28 07:27:00* Test Item Value Reference Range Interpretation Comments Platelet Estimate (test code = 91524-5) ADEQUATE [facility] HospitalPlatelet Morphology Aneuulb0907-46-38 07:27:00* Test Item Value Reference Range Interpretation Comments Platelet Morphology Comment (test code = 19013-3) NORMAL [facility] HospitalRed Cell Morphology Ifesknx6775-24-16 07:27:00* Test Item Value Reference Range Interpretation Comments Red Cell Morphology Comment (test code = 6742-1) NORMAL [facility] HospitalDifferential Total Cells Counted 2018-11-11 07:27:00* Test Item Value Reference Range Interpretation Comments Differential Total Cells Counted (test code = Differen tial Total Cells Counted) 100 [facility] HospitalNeutrophils % (Manual)2018-11-11 07:27:00 * Test Item Value Reference Range Interpretation Comments Neutrophils % (Manual) (test code = 39321-6) 90 40-74 H [place] [facility] HospitalLymphocytes % (Manual)2018-11-11 07:27:00 * Test Item Value Reference Range Interpretation Comments Lymphocytes % (Manual) (test code = 737-7) 7 19-48 L [facility] HospitalMonocytes % (Manual)2018-11-11 07:27:00* Test Item Value Reference Range Interpretation Comments Monocytes % (Manual) (test code = 744-3) 3 3.4-9.0 L [facility] HospitalPlatelet Uekkqcam2823-30-32 07:27:00* Test Item Value Reference Range Interpretation Comments Platelet Estimate (test code = 81666-6) ADEQUATE [place] [facility] HospitalPlatelet Morphology Iwommvb2023-90-23 07:27:00* Test Item Value Reference Range Interpretation Comments Platelet Morphology Comment (test code = 41061-0) NORMAL [facility] HospitalRed Cell Morphology Ltuzvfq9587-61-08 07:27:00* Test Item Value Reference Range Interpretation Comments Red Cell Morphology Comment (test code = 6742-1) NORMAL [facility] HospitalDifferential Total Cells Counted 2018-11-11 07:27:00* Test Item Value Reference Range Interpretation Comments Differential Total Cells Counted (test code = Differen tial Total Cells Counted) 100 [facility] HospitalNeutrophils % (Manual)2018-11-11 07:27:00 * Test Item Value Reference Range Interpretation Comments Neutrophils % (Manual) (test code = 29013-8) 90 40-74 H [place] [facility] HospitalLymphocytes % (Manual)2018-11-11 07:27:00 * Test Item Value Reference Range Interpretation Comments Lymphocytes % (Manual) (test code = 737-7) 7 19-48 L [facility] HospitalMonocytes % (Manual)2018-11-11 07:27:00* Test Item Value Reference Range Interpretation Comments Monocytes % (Manual) (test code = 744-3) 3 3.4-9.0 L [place] [facility] HospitalPlatelet Lztoyghu3025-26-15 07:27:00* Test Item Value Reference Range Interpretation Comments Platelet Estimate (test code = 95578-3) ADEQUATE [place] [facility] HospitalPlatelet Morphology Gmnctdx1575-99-15 07:27:00* Test Item Value Reference Range Interpretation Comments Platelet Morphology Comment (test code = 46926-3) NORMAL [facility] HospitalRed Cell Morphology Arvxydb5063-33-54 07:27:00* Test Item Value Reference Range Interpretation Comments Red Cell Morphology Comment (test code = 6742-1) NORMAL [facility] HospitalDifferential Total Cells Counted 2018-11-11 07:27:00* Test Item Value Reference Range Interpretation Comments Differential Total Cells Counted (test code = Differdejuan tial Total Cells Counted) 100 [facility] HospitalNeutrophils % (Manual)2018-11-11 07:27:00 * Test Item Value Reference Range Interpretation Comments Neutrophils % (Manual) (test code = 24262-4) 90 40-74 H [facility] HospitalLymphocytes % (Manual)2018-11-11 07:27:00 * Test Item Value Reference Range Interpretation Comments Lymphocytes % (Manual) (test code = 737-7) 7 19-48 L [facility] HospitalMonocytes % (Manual)2018-11-11 07:27:00* Test Item Value Reference Range Interpretation Comments Monocytes % (Manual) (test code = 744-3) 3 3.4-9.0 L [place] [facility] HospitalPlatelet Whclvfrm3012-53-89 07:27:00* Test Item Value Reference Range Interpretation Comments Platelet Estimate (test code = 22930-2) ADEQUATE [facility] HospitalPlatelet Morphology Vuxvfnl9688-92-93 07:27:00* Test Item Value Reference Range Interpretation Comments Platelet Morphology Comment (test code = 76687-2) NORMAL [facility] HospitalRed Cell Morphology Vxczfwe9082-52-07 07:27:00* Test Item Value Reference Range Interpretation Comments Red Cell Morphology Comment (test code = 6742-1) NORMAL [facility] HospitalDifferential Total Cells Counted 2018-11-11 07:27:00* Test Item Value Reference Range Interpretation Comments Differential Total Cells Counted (test code = Differen tial Total Cells Counted) 100 [facility] HospitalNeutrophils % (Manual)2018-11-11 07:27:00 * Test Item Value Reference Range Interpretation Comments Neutrophils % (Manual) (test code = 57892-0) 90 40-74 H [facility] HospitalLymphocytes % (Manual)2018-11-11 07:27:00 * Test Item Value Reference Range Interpretation Comments Lymphocytes % (Manual) (test code = 737-7) 7 19-48 L [facility] HospitalMonocytes % (Manual)2018-11-11 07:27:00* Test Item Value Reference Range Interpretation Comments Monocytes % (Manual) (test code = 744-3) 3 3.4-9.0 L [facility] HospitalPlatelet Xayujohs4496-76-36 07:27:00* Test Item Value Reference Range Interpretation Comments Platelet Estimate (test code = 28256-3) ADEQUATE [place] [facility] HospitalPlatelet Morphology Szqqgyb6983-83-34 07:27:00* Test Item Value Reference Range Interpretation Comments Platelet Morphology Comment (test code = 50969-9) NORMAL [facility] HospitalRed Cell Morphology Qbdoltt7972-32-06 07:27:00* Test Item Value Reference Range Interpretation Comments Red Cell Morphology Comment (test code = 6742-1) NORMAL [facility] HospitalDifferential Total Cells Counted 2018-11-11 07:27:00* Test Item Value Reference Range Interpretation Comments Differential Total Cells Counted (test code = Differen tial Total Cells Counted) 100 [facility] HospitalNeutrophils % (Manual)2018-11-11 07:27:00 * Test Item Value Reference Range Interpretation Comments Neutrophils % (Manual) (test code = 37950-5) 90 40-74 H [place] [facility] HospitalLymphocytes % (Manual)2018-11-11 07:27:00 * Test Item Value Reference Range Interpretation Comments Lymphocytes % (Manual) (test code = 737-7) 7 19-48 L [facility] HospitalMonocytes % (Manual)2018-11-11 07:27:00* Test Item Value Reference Range Interpretation Comments Monocytes % (Manual) (test code = 744-3) 3 3.4-9.0 L [place] [facility] HospitalPlatelet Vadcbgwq9222-70-08 07:27:00* Test Item Value Reference Range Interpretation Comments Platelet Estimate (test code = 70092-3) ADEQUATE [place] [facility] HospitalPlatelet Morphology Sdtwhmr7640-88-67 07:27:00* Test Item Value Reference Range Interpretation Comments Platelet Morphology Comment (test code = 34616-7) NORMAL [facility] HospitalRed Cell Morphology Msyyceg5218-01-82 07:27:00* Test Item Value Reference Range Interpretation Comments Red Cell Morphology Comment (test code = 6742-1) NORMAL [facility] Hospitalodium Mpglu0188-29-94 06:22:00* Test Item Value Reference Range Interpretation Comments Sodium Level (test code = 2951-2) 139 136-145 [facility] HospitalPotassium Tgebj6550-38-77 06:22:00* Test Item Value Reference Range Interpretation Comments Potassium Level (test code = 2823-3) 4.1 3.5-5.1 [facility] HospitalChloride Fqbrx6938-06-23 06:22:00* Test Item Value Reference Range Interpretation Comments Chloride Level (test code = 2075-0) 112 98-107 H [place] [facility] HospitalCarbon Dioxide Qeukk8593-42-52 06:22:00* Test Item Value Reference Range Interpretation Comments Carbon Dioxide Level (test code = 2028-9) 21 22-29 L [facility] HospitalAnion Hjq1277-28-58 06:22:00* Test Item Value Reference Range Interpretation Comments Anion Gap (test code = 13606-2) 10.1 8-16 [facility] HospitalBlood Urea Pbivrari1162-80-36 06:22:00* Test Item Value Reference Range Interpretation Comments Blood Urea Nitrogen (test code = 3094-0) 15 7-26 [facility] HospitalCreatinine2019-06-19 06:22:00* Test Item Value Reference Range Interpretation Comments Creatinine (test code = 2160-0) 0.94 0.57-1.11 [facility] HospitalBUN/Creatinine Gacmm4820-60-19 06:22:00* Test Item Value Reference Range Interpretation Comments BUN/Creatinine Ratio (test code = 3097-3) 16 6-25 [facility] HospitalEstimat Glomerular Filtration Rate 2018-11-11 06:22:00* Test Item Value Reference Range Interpretation Comments Estimat Glomerular Filtration Rate (test code = 724472908) 57 >60 L Ranges were taken from the National Kidney Disease Education Program and the [facility] Kidney Foundation literature.Reference ranges:60 or greater: Tdcqvb13-09 ( for 3 consecutive months): Chronic kidney disease 15 or less: Kidney failureTexas Children's HospitalGlucose Uxezi0885-92-54 06:22:00* Test Item Value Reference Range Interpretation Comments Glucose Level (test code = DSF1645) 118 74-118 [facility] HospitalCalcium Bxiqd3654-26-06 06:22:00* Test Item Value Reference Range Interpretation Comments Calcium Level (test code = 73763-4) 7.7 8.4-10.2 L [facility] HospitalTotal Uxzftggkz7415-43-17 06:22:00* Test Item Value Reference Range Interpretation Comments Total Bilirubin (test code = 1975-2) 0.4 0.2-1.2 [facility] HospitalAspartate Amino Transf (AST/SGOT) 2018-11-11 06:22:00* Test Item Value Reference Range Interpretation Comments Aspartate Amino Transf (AST/SGOT) (test code = Aspartate Amino Transf (AST/SGOT)) 25 5-34 [facility] HospitalAlanine Aminotransferase (ALT/SGPT) 2018-11-11 06:22:00* Test Item Value Reference Range Interpretation Comments Alanine Aminotransferase (ALT/SGPT) (test code = 1742-6) 23 0-55 [facility] HospitalTotal Btktugo6791-31-75 06:22:00* Test Item Value Reference Range Interpretation Comments Total Protein (test code = 2885-2) 5.3 6.5-8.1 L [facility] HospitalAlbumin2019-06-19 06:22:00* Test Item Value Reference Range Interpretation Comments Albumin (test code = 1751-7) 2.7 3.5-5.0 L [facility] HospitalGlobulin2019-06-19 06:22:00* Test Item Value Reference Range Interpretation Comments Globulin (test code = 15413-2) 2.6 2.3-3.5 [facility] HospitalAlbumin/Globulin Ujvuo3666-33-88 06:22:00 * Test Item Value Reference Range Interpretation Comments Albumin/Globulin Ratio (test code = 1759-0) 1.0 0.8-2.0 [facility] HospitalAlkaline Lhgvprkvxty1684-06-48 06:22:00* Test Item Value Reference Range Interpretation Comments Alkaline Phosphatase (test code = 6768-6) 61 40-150 [facility] HospitalAmylase Mrajx3682-97-02 06:22:00* Test Item Value Reference Range Interpretation Comments Amylase Level (test code = 1798-8) 52 25-125 [facility] HospitalLipase2019-06-19 06:22:00* Test Item Value Reference Range Interpretation Comments Lipase (test code = 3040-3) 39 8-78 [facility] HospitalAmylase Eeawt4108-20-20 06:22:00* Test Item Value Reference Range Interpretation Comments Amylase Level (test code = 1798-8) 52 25-125 [facility] HospitalAmylase Aholu5068-05-84 06:22:00* Test Item Value Reference Range Interpretation Comments Amylase Level (test code = 1798-8) 52 25-125 [facility] HospitalAmylase Dvnyc5313-20-26 06:22:00* Test Item Value Reference Range Interpretation Comments Amylase Level (test code = 1798-8) 52 25-125 [facility] HospitalAmylase Ezutq6264-89-75 06:22:00* Test Item Value Reference Range Interpretation Comments Amylase Level (test code = 1798-8) 52 25-125 [facility] HospitalAmylase Ydtwl8867-19-38 06:22:00* Test Item Value Reference Range Interpretation Comments Amylase Level (test code = 1798-8) 52 25-125 [facility] HospitalAmylase Vvunz4263-95-67 06:22:00* Test Item Value Reference Range Interpretation Comments Amylase Level (test code = 1798-8) 52 25-125 [facility] HospitalAmylase Rxghl2382-35-09 06:22:00* Test Item Value Reference Range Interpretation Comments Amylase Level (test code = 1798-8) 52 25-125 [facility] HospitalAmylase Puacc9110-27-05 06:22:00* Test Item Value Reference Range Interpretation Comments Amylase Level (test code = 1798-8) 52 25-125 [facility] HospitalWhite Blood Hebni8231-39-70 06:17:00* Test Item Value Reference Range Interpretation Comments White Blood Count (test code = 6690-2) 9.38 4.8-10.8 [facility] HospitalRed Blood Apybv1846-28-18 06:17:00* Test Item Value Reference Range Interpretation Comments Red Blood Count (test code = 789-8) 3.27 3.6-5.1 L [facility] HospitalHemoglobin2019-06-19 06:17:00* Test Item Value Reference Range Interpretation Comments Hemoglobin (test code = 71159-6) 10.0 12.0-16.0 L [facility] HospitalHematocrit2019-06-19 06:17:00* Test Item Value Reference Range Interpretation Comments Hematocrit (test code = 4544-3) 31.0 34.2-44.1 L [facility] HospitalMean Corpuscular Qgmjtv1428-07-78 06:17:00* Test Item Value Reference Range Interpretation Comments Mean Corpuscular Volume (test code = 787-2) 94.8 81-99 [facility] HospitalMean Corpuscular Sakgxnljma1122-63-39 06:17:00* Test Item Value Reference Range Interpretation Comments Mean Corpuscular Hemoglobin (test code = 785-6) 30.6 28-32 [facility] HospitalMean Corpuscular Hemoglobin Concent 2018-11-11 06:17:00* Test Item Value Reference Range Interpretation Comments Mean Corpuscular Hemoglobin Concent (test code = 786-4) 32.3 31-35 [facility] HospitalRed Cell Distribution Vkxhv3595-58-46 06:17:00* Test Item Value Reference Range Interpretation Comments Red Cell Distribution Width (test code = 89198-2) 13.3 11.7 -14.4 [facility] HospitalPlatelet Vmjef2597-25-40 06:17:00* Test Item Value Reference Range Interpretation Comments Platelet Count (test code = 777-3) 175 140-360 [facility] HospitalNeutrophils (%) (Auto)2018-11-11 06:17:00 * Test Item Value Reference Range Interpretation Comments Neutrophils (%) (Auto) (test code = 36557-9) 86.2 38.7-80.0 H [facility] HospitalLymphocytes (%) (Auto)2018-11-11 06:17:00 * Test Item Value Reference Range Interpretation Comments Lymphocytes (%) (Auto) (test code = 736-9) 6.2 18.0-39.1 L [facility] HospitalMonocytes (%) (Auto)2018-11-11 06:17:00* Test Item Value Reference Range Interpretation Comments Monocytes (%) (Auto) (test code = 5905-5) 6.5 4.4-11.3 [facility] HospitalEosinophils (%) (Auto)2018-11-11 06:17:00 * Test Item Value Reference Range Interpretation Comments Eosinophils (%) (Auto) (test code = 713-8) 0.0 0.0-6.0 [facility] HospitalBasophils (%) (Auto)2018-11-11 06:17:00* Test Item Value Reference Range Interpretation Comments Basophils (%) (Auto) (test code = 706-2) 0.1 0.0-1.0 [facility] HospitalIM GRANULOCYTES %2018-11-11 06:17:00* Test Item Value Reference Range Interpretation Comments IM GRANULOCYTES % (test code = IM GRANULOCYTES %) 1.0 0.0- 1.0 [facility] HospitalNeutrophils # (Auto)2018-11-11 06:17:00* Test Item Value Reference Range Interpretation Comments Neutrophils # (Auto) (test code = 751-8) 8.1 2.1-6.9 H [facility] HospitalLymphocytes # (Auto)2018-11-11 06:17:00* Test Item Value Reference Range Interpretation Comments Lymphocytes # (Auto) (test code = 13751-2) 0.6 1.0-3.2 L [facility] HospitalMonocytes # (Auto)2018-11-11 06:17:00* Test Item Value Reference Range Interpretation Comments Monocytes # (Auto) (test code = 742-7) 0.6 0.2-0.8 [facility] HospitalEosinophils # (Auto)2018-11-11 06:17:00* Test Item Value Reference Range Interpretation Comments Eosinophils # (Auto) (test code = 711-2) 0.0 0.0-0.4 [facility] HospitalBasophils # (Auto)2018-11-11 06:17:00* Test Item Value Reference Range Interpretation Comments Basophils # (Auto) (test code = 704-7) 0.0 0.0-0.1 [facility] HospitalAbsolute Immature Granulocyte (auto 2018-11-11 06:17:00* Test Item Value Reference Range Interpretation Comments Absolute Immature Granulocyte (auto (anjali t code = Absolute Immature Granulocyte (auto) 0.09 0-0.1 [facility] HospitalInfluenza Virus Types A,B Antigen 2018-11-10 05:38:00* Test Item Value Reference Range Interpretation Comments Influenza Virus Types A,B Antigen (test code = 49019-7) NEGATIVE NEGATIVE [facility] HospitalInfluenza Virus Types A,B Antigen 2018-11-10 05:38:00* Test Item Value Reference Range Interpretation Comments Influenza Virus Types A,B Antigen (test code = 72474-2) NEGATIVE NEGATIVE [facility] HospitalInfluenza Virus Types A,B Antigen 2018-11-10 05:38:00* Test Item Value Reference Range Interpretation Comments Influenza Virus Types A,B Antigen (test code = 59522-6) NEGATIVE NEGATIVE [facility] HospitalInfluenza Virus Types A,B Antigen 2018-11-10 05:38:00* Test Item Value Reference Range Interpretation Comments Influenza Virus Types A,B Antigen (test code = 51817-6) NEGATIVE NEGATIVE [facility] HospitalInfluenza Virus Types A,B Antigen 2018-11-10 05:38:00* Test Item Value Reference Range Interpretation Comments Influenza Virus Types A,B Antigen (test code = 12514-4) NEGATIVE NEGATIVE [facility] HospitalInfluenza Virus Types A,B Antigen 2018-11-10 05:38:00* Test Item Value Reference Range Interpretation Comments Influenza Virus Types A,B Antigen (test code = 42445-3) NEGATIVE NEGATIVE [facility] HospitalInfluenza Virus Types A,B Antigen 2018-11-10 05:38:00* Test Item Value Reference Range Interpretation Comments Influenza Virus Types A,B Antigen (test code = 34208-5) NEGATIVE NEGATIVE [facility] HospitalInfluenza Virus Types A,B Antigen 2018-11-10 05:38:00* Test Item Value Reference Range Interpretation Comments Influenza Virus Types A,B Antigen (test code = 64400-5) NEGATIVE NEGATIVE [facility] HospitalInfluenza Virus Types A,B Antigen 2018-11-10 05:38:00* Test Item Value Reference Range Interpretation Comments Influenza Virus Types A,B Antigen (test code = 33029-4) NEGATIVE NEGATIVE [facility] HospitalCT ABDOMEN/PELVIS SE6177-73-16 05:23:00 [facility] [address] [place] [address] Patient Name: YUE RAMSEY MR #: [id number] : 1935 Age/Sex: 83/F Req #: [id number] Adm Physician: Ordered by: FELICITY ALONSO MD Report #: [id number] Location: ER Room/Bed: Procedure: 0618 -0004 CT/CT ABDOMEN/PELVIS WO Exam Date: 11/10/18 Ex am Time: 424 REPORT STATUS: Signed EXAM: CT Abdomen and Pelvis WITHOUT contrast INDICATION: ABD PA IN, N/V/D [id number] Y COMPARISON: CT dated 05/21/2018 TECHNIQU E: [...] MD 6 Transcribed By: GELY on 11/10/18536 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 TO: FELICITY ALONSO MD CHEST SINGLE (PORTABLE)2018-11-10 05:21:00 [place] [address] Patient Name: YUE RAMSEY MR #: [id number] : 1935 Age/Sex: 83/F Req #: [id number] Adm Physician: Ordered by: FELICITY ALONSO MD Report #: [id number] Location: ER Room/Bed: Procedure: 0618 -0013 DX/CHEST SINGLE (PORTABLE) Exam Date: 11/10/18 Exam Time: 424 REPORT STATUS: Sig leeroy EXAMINATION: CHEST SINGLE (PORTABLE) INDICATION: WEAKN ESS [id number] Y COMPARISON: 03/13/2017 FINDINGS: A P [...] 11/10/18522 COPY TO: FELICITY ALONSO MD Urine ZAX2549-67-75 05:00:00* Test Item Value Reference Range Interpretation Comments Urine WBC (test code = 5821-4) 6-10 0-5 H [facility] HospitalUrine FBA4141-43-40 05:00:00* Test Item Value Reference Range Interpretation Comments Urine RBC (test code = 81747-0) 6-10 0-5 H [facility] HospitalUrine Miepeoaz8130-54-04 05:00:00* Test Item Value Reference Range Interpretation Comments Urine Bacteria (test code = 41295-2) MODERATE NONE H [facility] HospitalUrine Epithelial Xdtac9063-90-87 05:00:00 * Test Item Value Reference Range Interpretation Comments Urine Epithelial Cells (test code = 95143-5) FEW NONE [facility] HospitalUrine Paibi2262-52-63 05:00:00* Test Item Value Reference Range Interpretation Comments Urine Mucus (test code = 8247-9) MODERATE RARE H [facility] HospitalUrine Lmcfz9572-92-32 04:47:00* Test Item Value Reference Range Interpretation Comments Urine Color (test code = 5778-6) YELLOW YELLOW [facility] HospitalUrine Fgaeolj0214-53-10 04:47:00* Test Item Value Reference Range Interpretation Comments Urine Clarity (test code = 59569-8) CLEAR CLEAR [facility] HospitalUrine Specific Icxlkbm8793-01-69 04:47:00 * Test Item Value Reference Range Interpretation Comments Urine Specific [place] (test code = 5811-5) 1.015 1.010-1.02 5 [facility] HospitalUrine yS5729-84-55 04:47:00* Test Item Value Reference Range Interpretation Comments Urine pH (test code = 76144-6) 6 5-7 [facility] HospitalUrine Leukocyte Hkqvynad9989-19-76 04:47:00* Test Item Value Reference Range Interpretation Comments Urine Leukocyte Esterase (test code = 45977-2) NEGATIVE NEGATIV E [facility] HospitalUrine Opdcjox0175-48-10 04:47:00* Test Item Value Reference Range Interpretation Comments Urine Nitrite (test code = 54551-1) NEGATIVE NEGATIVE [facility] HospitalUrine Mobraew4559-85-42 04:47:00* Test Item Value Reference Range Interpretation Comments Urine Protein (test code = 11883-2) TRACE NEGATIVE H [facility] HospitalUrine Glucose (UA)2018-11-10 04:47:00* Test Item Value Reference Range Interpretation Comments Urine Glucose (UA) (test code = 09350-7) NEGATIVE NEGATIVE [facility] HospitalUrine Fjhzwwf2278-87-02 04:47:00* Test Item Value Reference Range Interpretation Comments Urine Ketones (test code = 15579-4) NEGATIVE NEGATIVE [facility] HospitalUrine Hrizrnsqolxa4407-00-29 04:47:00* Test Item Value Reference Range Interpretation Comments Urine Urobilinogen (test code = 49570-9) 0.2 0.2-1 [facility] HospitalUrine Eiyvnsjro7024-29-25 04:47:00* Test Item Value Reference Range Interpretation Comments Urine Bilirubin (test code = 1977-8) NEGATIVE NEGATIVE [facility] HospitalUrine Amutn3138-07-47 04:47:00* Test Item Value Reference Range Interpretation Comments Urine Blood (test code = 10840-0) NEGATIVE NEGATIVE [facility] HospitalCreatine Kinase OQ7472-82-31 04:25:00* Test Item Value Reference Range Interpretation Comments Creatine Kinase MB (test code = 84000-9) 1.70 0-5.0 [facility] HospitalTroponin D9717-66-81 04:25:00* Test Item Value Reference Range Interpretation Comments Troponin I (test code = IIE1526) < 0.001 0-0.300 [facility] HospitalCreatine Yivwao0778-82-75 04:01:00* Test Item Value Reference Range Interpretation Comments Creatine Kinase (test code = 2157-6) 124 29-168 [facility] HospitalCT ABDOMEN/PELVIS LM4407-12-28 19:51:00 [facility] [address] [place] [address] Patient Name: YUE RAMSEY MR #: [id number] : 1935 Age/Sex: 82/F Req #: [id number] Adm Physician: Ordered by: BHARATHI JOHNSTON NP Report #: [id number] Location: ER Room/Bed: Procedure: [id number] C T/CT ABDOMEN/PELVIS WO Exam Date: 05/21/18 Exam Time : 1818 REPORT STATUS: Signed EXA M: CT Abdomen and Pelvis WITHOUT contrast INDICATION: Vomiting ABD PAIN tv rbo per tub puller bol[place] wt 05/21/18@1750 COMPARISON: Abdominal ultrasound 03/08/2017 . [...] limits set by the Radiation Protocol Com [facility] (RP). FINDINGS: LINES and TUBES: None. LOWER THORAX: [...] Transcribed By: GELY on 05/21/182001 COPY TO: BHARATHI JOHNSTON NP Differential Total Cells Egipmec9119-84-70 15:22:00* Test Item Value Reference Range Interpretation Comments Differential Total Cells Counted (test code = Differen tial Total Cells Counted) [address] [facility] % (Manual)2018-05-21 15:22:00 * Test Item Value Reference Range Interpretation Comments Neutrophils % (Manual) (test code = 80981-0) 83 40-74 H [facility] HospitalLymphocytes % (Manual)2018-05-21 15:22:00 * Test Item Value Reference Range Interpretation Comments Lymphocytes % (Manual) (test code = 737-7) 9 19-48 L [facility] HospitalMonocytes % (Manual)2018-05-21 15:22:00* Test Item Value Reference Range Interpretation Comments Monocytes % (Manual) (test code = 744-3) 3 3.4-9.0 L [facility] HospitalEosinophils % (Manual)2018-05-21 15:22:00 * Test Item Value Reference Range Interpretation Comments Eosinophils % (Manual) (test code = 714-6) 1 0-7 [facility] HospitalReactive Ulcrjpbwyhg6538-87-49 15:22:00* Test Item Value Reference Range Interpretation Comments Reactive Lymphocytes (test code = 21679-3) 4 [facility] HospitalPlatelet Llgpqfbx6440-28-19 15:22:00* Test Item Value Reference Range Interpretation Comments Platelet Estimate (test code = 39619-2) ADEQUATE [facility] HospitalRed Cell Morphology Qozpxsd7291-08-33 15:22:00* Test Item Value Reference Range Interpretation Comments Red Cell Morphology Comment (test code = 6742-1) NORMAL [facility] HospitalEosinophils % (Manual)2018-05-21 15:22:00 * Test Item Value Reference Range Interpretation Comments Eosinophils % (Manual) (test code = 714-6) 1 0-7 [facility] HospitalReactive Yfgazzbuvtw5000-47-00 15:22:00* Test Item Value Reference Range Interpretation Comments Reactive Lymphocytes (test code = 02032-9) 4 [facility] HospitalUrine Pzoag4701-36-30 14:51:00* Test Item Value Reference Range Interpretation Comments Urine Color (test code = 5778-6) YELLOW YELLOW [facility] HospitalUrine Zmkpjfd0848-07-47 14:51:00* Test Item Value Reference Range Interpretation Comments Urine Clarity (test code = 38165-7) CLOUDY CLEAR H [facility] HospitalUrine Specific Qxwramn6476-48-49 14:51:00 * Test Item Value Reference Range Interpretation Comments Urine Specific [place] (test code = 5811-5) 1.025 1.010-1.02 5 [facility] HospitalUrine pR4839-46-45 14:51:00* Test Item Value Reference Range Interpretation Comments Urine pH (test code = 92395-5) 5 5-7 [facility] HospitalUrine Leukocyte Walcfjwj3952-88-41 14:51:00* Test Item Value Reference Range Interpretation Comments Urine Leukocyte Esterase (test code = 5799-2) 1+ NEGATIVE H [facility] Tmmqubm0208-35-52 14:51:00* Test Item Value Reference Range Interpretation Comments Urine Nitrite (test code = 89797-7) NEGATIVE NEGATIVE [facility] HospitalUrine Qaqtmzr3455-46-00 14:51:00* Test Item Value Reference Range Interpretation Comments Urine Protein (test code = 5804-0) 1+ NEGATIVE H [facility] HospitalUrine Glucose (UA)2018-05-21 14:51:00* Test Item Value Reference Range Interpretation Comments Urine Glucose (UA) (test code = 2349-9) NEGATIVE NEGATIVE [facility] HospitalUrine Fueiqwl5325-89-46 14:51:00* Test Item Value Reference Range Interpretation Comments Urine Ketones (test code = 92441-3) TRACE NEGATIVE H [facility] HospitalUrine Atsihepndhjf2141-33-80 14:51:00* Test Item Value Reference Range Interpretation Comments Urine Urobilinogen (test code = 87705-0) 0.2 0.2-1 [facility] HospitalUrine Hevshovyp8624-77-00 14:51:00* Test Item Value Reference Range Interpretation Comments Urine Bilirubin (test code = 1978-6) NEGATIVE NEGATIVE [facility] HospitalUrine Xpstu7105-23-60 14:51:00* Test Item Value Reference Range Interpretation Comments Urine Blood (test code = 22296-4) NEGATIVE NEGATIVE [facility] HospitalUrine AAW5294-40-01 14:51:00* Test Item Value Reference Range Interpretation Comments Urine WBC (test code = 5821-4) 6-10 0-5 H [facility] HospitalUrine QBG0636-40-94 14:51:00* Test Item Value Reference Range Interpretation Comments Urine RBC (test code = 24834-7) 6-10 0-5 H [facility] HospitalUrine Hdlyiedo3425-53-45 14:51:00* Test Item Value Reference Range Interpretation Comments Urine Bacteria (test code = 40769-2) MANY NONE H [facility] HospitalUrine Epithelial Zzdmd0843-46-42 14:51:00 * Test Item Value Reference Range Interpretation Comments Urine Epithelial Cells (test code = 21964-5) MANY NONE [facility] HospitalUrine Coarse Granular Frdyd8415-42-68 14:51:00* Test Item Value Reference Range Interpretation Comments Urine Coarse Granular Casts (test code = 19768-5) 1-5 >0 H [facility] HospitalUrine Coarse Granular Hfmfa7315-51-99 14:51:00* Test Item Value Reference Range Interpretation Comments Urine Coarse Granular Casts (test code = 38055-9) 1-5 >0 [facility] Teoov7924-85-78 14:32:00* Test Item Value Reference Range Interpretation Comments Sodium Level (test code = 2951-2) 136 136-145 [facility] HospitalPotassium Ifsxt9581-89-16 14:32:00* Test Item Value Reference Range Interpretation Comments Potassium Level (test code = 2823-3) 3.9 3.5-5.1 [facility] HospitalChloride Fkgmd9836-15-46 14:32:00* Test Item Value Reference Range Interpretation Comments Chloride Level (test code = 2075-0) 103 98-107 [facility] HospitalCarbon Dioxide Rsnzp9356-16-53 14:32:00* Test Item Value Reference Range Interpretation Comments Carbon Dioxide Level (test code = 2028-9) 19 22-29 L [facility] HospitalAnion Pos2908-53-76 14:32:00* Test Item Value Reference Range Interpretation Comments Anion Gap (test code = 61952-4) 17.9 8-16 H [facility] HospitalBlood Urea Siiswoxj9026-93-33 14:32:00* Test Item Value Reference Range Interpretation Comments Blood Urea Nitrogen (test code = 3094-0) 27 7-26 H [facility] HospitalCreatinine2018-12-27 14:32:00* Test Item Value Reference Range Interpretation Comments Creatinine (test code = 2160-0) 1.55 0.57-1.11 H [facility] HospitalBUN/Creatinine Lowan0731-85-19 14:32:00* Test Item Value Reference Range Interpretation Comments BUN/Creatinine Ratio (test code = 3097-3) 17 6-25 [facility] HospitalEstimat Glomerular Filtration Rate 2018-05-21 14:32:00* Test Item Value Reference Range Interpretation Comments Estimat Glomerular Filtration Rate (test code = 526887689) 32 >60 L Ranges were taken from the National Kidney Disease Education Program and the [facility] literature.Reference ranges:60 or greater: Fyoqff04-06 ( for 3 consecutive months): Chronic kidney disease 15 or less: Kidney failureTexas Children's HospitalGlucose Lmwey6048-04-82 14:32:00* Test Item Value Reference Range Interpretation Comments Glucose Level (test code = MYM2637) 199 74-118 H [facility] HospitalCalcium Noykd8308-72-80 14:32:00* Test Item Value Reference Range Interpretation Comments Calcium Level (test code = 38763-6) 8.8 8.4-10.2 [facility] HospitalTotal Bxnunkfci1431-80-95 14:32:00* Test Item Value Reference Range Interpretation Comments Total Bilirubin (test code = 1975-2) 0.7 0.2-1.2 [facility] HospitalAspartate Amino Transf (AST/SGOT) 2018-05-21 14:32:00* Test Item Value Reference Range Interpretation Comments Aspartate Amino Transf (AST/SGOT) (test code = Aspartate Amino Transf (AST/SGOT)) 31 5-34 [facility] HospitalAlanine Aminotransferase (ALT/SGPT) 2018-05-21 14:32:00* Test Item Value Reference Range Interpretation Comments Alanine Aminotransferase (ALT/SGPT) (test code = 1742-6) 36 0-55 [facility] HospitalTotal Tyfmuex6063-59-65 14:32:00* Test Item Value Reference Range Interpretation Comments Total Protein (test code = 2885-2) 7.3 6.5-8.1 [facility] HospitalAlbumin2018-12-27 14:32:00* Test Item Value Reference Range Interpretation Comments Albumin (test code = 1751-7) 3.7 3.5-5.0 [facility] HospitalGlobulin2018-12-27 14:32:00* Test Item Value Reference Range Interpretation Comments Globulin (test code = 47004-5) 3.6 2.3-3.5 H [facility] HospitalAlbumin/Globulin Bgzem4851-34-88 14:32:00 * Test Item Value Reference Range Interpretation Comments Albumin/Globulin Ratio (test code = 1759-0) 1.0 0.8-2.0 [facility] HospitalAlkaline Ceuajhjcyqi4504-58-90 14:32:00* Test Item Value Reference Range Interpretation Comments Alkaline Phosphatase (test code = 6768-6) 69 40-150 [facility] HospitalWhite Blood Pjujg4194-18-12 14:26:00* Test Item Value Reference Range Interpretation Comments White Blood Count (test code = 6690-2) 12.81 4.8-10.8 H [facility] HospitalRed Blood Ztpos6807-76-44 14:26:00* Test Item Value Reference Range Interpretation Comments Red Blood Count (test code = 789-8) 4.30 3.6-5.1 [facility] HospitalHemoglobin2018-12-27 14:26:00* Test Item Value Reference Range Interpretation Comments Hemoglobin (test code = 93740-4) 13.6 12.0-16.0 [facility] HospitalHematocrit2018-12-27 14:26:00* Test Item Value Reference Range Interpretation Comments Hematocrit (test code = 4544-3) 40.6 34.2-44.1 [facility] HospitalMean Corpuscular Svfixe9358-06-24 14:26:00* Test Item Value Reference Range Interpretation Comments Mean Corpuscular Volume (test code = 787-2) 94.4 81-99 [facility] HospitalMean Corpuscular Tebhiyjqhv1171-91-55 14:26:00* Test Item Value Reference Range Interpretation Comments Mean Corpuscular Hemoglobin (test code = 785-6) 31.6 28-32 [facility] HospitalMean Corpuscular Hemoglobin Concent 2018-05-21 14:26:00* Test Item Value Reference Range Interpretation Comments Mean Corpuscular Hemoglobin Concent (test code = 786-4) 33.5 31-35 [facility] HospitalRed Cell Distribution Zfwbi2035-68-92 14:26:00* Test Item Value Reference Range Interpretation Comments Red Cell Distribution Width (test code = 97343-2) 13.6 11.7 -14.4 [facility] HospitalPlatelet Nlgjn3559-42-01 14:26:00* Test Item Value Reference Range Interpretation Comments Platelet Count (test code = 777-3) 254 140-360 [facility] HospitalNeutrophils (%) (Auto)2018-05-21 14:26:00 * Test Item Value Reference Range Interpretation Comments Neutrophils (%) (Auto) (test code = 68388-4) 91.9 38.7-80.0 H [facility] HospitalLymphocytes (%) (Auto)2018-05-21 14:26:00 * Test Item Value Reference Range Interpretation Comments Lymphocytes (%) (Auto) (test code = 736-9) 3.0 18.0-39.1 L [facility] HospitalMonocytes (%) (Auto)2018-05-21 14:26:00* Test Item Value Reference Range Interpretation Comments Monocytes (%) (Auto) (test code = 5905-5) 4.2 4.4-11.3 L [facility] HospitalEosinophils (%) (Auto)2018-05-21 14:26:00 * Test Item Value Reference Range Interpretation Comments Eosinophils (%) (Auto) (test code = 713-8) 0.2 0.0-6.0 [facility] HospitalBasophils (%) (Auto)2018-05-21 14:26:00* Test Item Value Reference Range Interpretation Comments Basophils (%) (Auto) (test code = 706-2) 0.2 0.0-1.0 [facility] HospitalIM GRANULOCYTES %2018-05-21 14:26:00* Test Item Value Reference Range Interpretation Comments IM GRANULOCYTES % (test code = IM GRANULOCYTES %) 0.5 0.0- 1.0 [facility] HospitalNeutrophils # (Auto)2018-05-21 14:26:00* Test Item Value Reference Range Interpretation Comments Neutrophils # (Auto) (test code = 751-8) 11.8 2.1-6.9 H [facility] HospitalLymphocytes # (Auto)2018-05-21 14:26:00* Test Item Value Reference Range Interpretation Comments Lymphocytes # (Auto) (test code = 40897-1) 0.4 1.0-3.2 L [facility] HospitalMonocytes # (Auto)2018-05-21 14:26:00* Test Item Value Reference Range Interpretation Comments Monocytes # (Auto) (test code = 742-7) 0.5 0.2-0.8 [facility] HospitalEosinophils # (Auto)2018-05-21 14:26:00* Test Item Value Reference Range Interpretation Comments Eosinophils # (Auto) (test code = 711-2) 0.0 0.0-0.4 [facility] HospitalBasophils # (Auto)2018-05-21 14:26:00* Test Item Value Reference Range Interpretation Comments Basophils # (Auto) (test code = 704-7) 0.0 0.0-0.1 [facility] HospitalAbsolute Immature Granulocyte (auto 2018-05-21 14:26:00* Test Item Value Reference Range Interpretation Comments Absolute Immature Granulocyte (auto (anjali t code = Absolute Immature Granulocyte (auto) 0.07 0-0.1 [facility] WG2474-24-78 11:30:00 [facility] [address] [address] Patient Name: YUE RAMSEY MR #: [id number] : 1935 Age/Sex: 82/F Req #: [id number] Adm Physician: Ordered by: SANDRA CHASE MD Report #: [id number] Location: MRI Room/ Bed: Procedure: [id number] MRI/MRI BRAIN WO Exam Date : Exam [...] COPY TO: SANDRA CHASE MD White Blood Pxxqd6570-50-74 10:02:00* Test Item Value Reference Range Interpretation Comments White Blood Count (test code = 6690-2) 7.09 4.8-10.8 [facility] HospitalRed Blood Nftki1683-56-42 10:02:00* Test Item Value Reference Range Interpretation Comments Red Blood Count (test code = 789-8) 4.60 3.6-5.1 [facility] HospitalHemoglobin2018-04-09 10:02:00* Test Item Value Reference Range Interpretation Comments Hemoglobin (test code = 28063-6) 13.9 12.0-16.0 [facility] HospitalHematocrit2018-04-09 10:02:00* Test Item Value Reference Range Interpretation Comments Hematocrit (test code = 4544-3) 40.9 34.2-44.1 [facility] HospitalMean Corpuscular Vwjfuw9593-28-90 10:02:00* Test Item Value Reference Range Interpretation Comments Mean Corpuscular Volume (test code = 787-2) 88.9 81-99 [facility] HospitalMean Corpuscular Qapurmexar7996-57-32 10:02:00* Test Item Value Reference Range Interpretation Comments Mean Corpuscular Hemoglobin (test code = 785-6) 30.2 28-32 [facility] HospitalMean Corpuscular Hemoglobin Concent 2017-09-01 10:02:00* Test Item Value Reference Range Interpretation Comments Mean Corpuscular Hemoglobin Concent (test code = 786-4) 34.0 31-35 [facility] HospitalRed Cell Distribution Wavzs9505-73-07 10:02:00* Test Item Value Reference Range Interpretation Comments Red Cell Distribution Width (test code = 23829-0) 13.7 11.7 -14.4 [facility] HospitalPlatelet Hggys1021-80-94 10:02:00* Test Item Value Reference Range Interpretation Comments Platelet Count (test code = 777-3) 235 140-360 [facility] HospitalNeutrophils (%) (Auto)2017-09-01 10:02:00 * Test Item Value Reference Range Interpretation Comments Neutrophils (%) (Auto) (test code = 93434-5) 62.1 38.7-80.0 [facility] HospitalLymphocytes (%) (Auto)2017-09-01 10:02:00 * Test Item Value Reference Range Interpretation Comments Lymphocytes (%) (Auto) (test code = 736-9) 26.0 18.0-39.1 [facility] HospitalMonocytes (%) (Auto)2017-09-01 10:02:00* Test Item Value Reference Range Interpretation Comments Monocytes (%) (Auto) (test code = 5905-5) 7.6 4.4-11.3 [facility] HospitalEosinophils (%) (Auto)2017-09-01 10:02:00 * Test Item Value Reference Range Interpretation Comments Eosinophils (%) (Auto) (test code = 713-8) 3.0 0.0-6.0 [facility] HospitalBasophils (%) (Auto)2017-09-01 10:02:00* Test Item Value Reference Range Interpretation Comments Basophils (%) (Auto) (test code = 706-2) 1.0 0.0-1.0 [facility] HospitalIM GRANULOCYTES %2017-09-01 10:02:00* Test Item Value Reference Range Interpretation Comments IM GRANULOCYTES % (test code = IM GRANULOCYTES %) 0.3 0.0- 1.0 [facility] HospitalNeutrophils # (Auto)2017-09-01 10:02:00* Test Item Value Reference Range Interpretation Comments Neutrophils # (Auto) (test code = 751-8) 4.4 2.1-6.9 [facility] HospitalLymphocytes # (Auto)2017-09-01 10:02:00* Test Item Value Reference Range Interpretation Comments Lymphocytes # (Auto) (test code = 23961-6) 1.8 1.0-3.2 [facility] HospitalMonocytes # (Auto)2017-09-01 10:02:00* Test Item Value Reference Range Interpretation Comments Monocytes # (Auto) (test code = 742-7) 0.5 0.2-0.8 [facility] HospitalEosinophils # (Auto)2017-09-01 10:02:00* Test Item Value Reference Range Interpretation Comments Eosinophils # (Auto) (test code = 711-2) 0.2 0.0-0.4 [facility] HospitalBasophils # (Auto)2017-09-01 10:02:00* Test Item Value Reference Range Interpretation Comments Basophils # (Auto) (test code = 704-7) 0.1 0.0-0.1 [facility] HospitalAbsolute Immature Granulocyte (auto 2017-09-01 10:02:00* Test Item Value Reference Range Interpretation Comments Absolute Immature Granulocyte (auto (anjali t code = Absolute Immature Granulocyte (auto) 0.02 0-0.1 [facility]odium Edpre5799-94-65 10:02:00* Test Item Value Reference Range Interpretation Comments Sodium Level (test code = 2951-2) 141 136-145 [facility] HospitalPotassium Qxqse7725-65-61 10:02:00* Test Item Value Reference Range Interpretation Comments Potassium Level (test code = 2823-3) 3.7 3.5-5.1 [facility] HospitalChloride Fxfyi5423-84-51 10:02:00* Test Item Value Reference Range Interpretation Comments Chloride Level (test code = 2075-0) 109 98-107 H [facility] HospitalCarbon Dioxide Ykcod0213-52-75 10:02:00* Test Item Value Reference Range Interpretation Comments Carbon Dioxide Level (test code = 2028-9) 24 22-29 [facility] HospitalAnion Iye9779-75-64 10:02:00* Test Item Value Reference Range Interpretation Comments Anion Gap (test code = 98568-5) 11.7 8-16 [facility] HospitalBlood Urea Ljsbaqsx2258-31-92 10:02:00* Test Item Value Reference Range Interpretation Comments Blood Urea Nitrogen (test code = 3094-0) 20 7-26 [facility] HospitalCreatinine2018-04-09 10:02:00* Test Item Value Reference Range Interpretation Comments Creatinine (test code = 2160-0) 1.14 0.57-1.11 H [facility] HospitalBUN/Creatinine Yjksg3786-44-30 10:02:00* Test Item Value Reference Range Interpretation Comments BUN/Creatinine Ratio (test code = 3097-3) 18 6-25 [facility] HospitalEstimat Glomerular Filtration Rate 2017-09-01 10:02:00* Test Item Value Reference Range Interpretation Comments Estimat Glomerular Filtration Rate (test code = 34433-8) 46 >60 L Ranges were taken from the National Kidney Disease Education Program and the [employer] literature.Reference ranges:60 or greater: Bhtlmr90-74 ( for 3 consecutive months): Chronic kidney disease 15 or less: Kidney failureTexas Children's HospitalGlucose Ywbct5056-59-45 10:02:00* Test Item Value Reference Range Interpretation Comments Glucose Level (test code = YTI0374) 146 74-118 H [facility] HospitalCalcium Baqwm2034-69-44 10:02:00* Test Item Value Reference Range Interpretation Comments Calcium Level (test code = 01434-0) 9.2 8.4-10.2 [facility] HospitalTotal Cxacyewwb7159-67-92 10:02:00* Test Item Value Reference Range Interpretation Comments Total Bilirubin (test code = 1975-2) 0.7 0.2-1.2 [facility] HospitalAspartate Amino Transf (AST/SGOT) 2017-09-01 10:02:00* Test Item Value Reference Range Interpretation Comments Aspartate Amino Transf (AST/SGOT) (test code = Aspartate Amino Transf (AST/SGOT)) 27 5-34 [facility] HospitalAlanine Aminotransferase (ALT/SGPT) 2017-09-01 10:02:00* Test Item Value Reference Range Interpretation Comments Alanine Aminotransferase (ALT/SGPT) (test code = 1742-6) 20 0-55 [facility] HospitalTotal Extucca7798-10-53 10:02:00* Test Item Value Reference Range Interpretation Comments Total Protein (test code = 2885-2) 7.6 6.5-8.1 [facility] HospitalAlbumin2018-04-09 10:02:00* Test Item Value Reference Range Interpretation Comments Albumin (test code = 1751-7) 3.8 3.5-5.0 [facility] HospitalGlobulin2018-04-09 10:02:00* Test Item Value Reference Range Interpretation Comments Globulin (test code = 32411-5) 3.8 2.3-3.5 H [facility] HospitalAlbumin/Globulin Tzxrk5802-73-84 10:02:00 * Test Item Value Reference Range Interpretation Comments Albumin/Globulin Ratio (test code = 1759-0) 1.0 0.8-2.0 [facility] HospitalAlkaline Hytkvicakye8091-88-02 10:02:00* Test Item Value Reference Range Interpretation Comments Alkaline Phosphatase (test code = 6768-6) 77 40-150 [facility] HospitalUrine ERT1753-84-58 10:27:00* Test Item Value Reference Range Interpretation Comments Urine WBC (test code = 5821-4) NONE 0-5 [facility] HospitalUrine HOT2509-72-26 10:27:00* Test Item Value Reference Range Interpretation Comments Urine RBC (test code = 54215-4) 0-5 0-5 [facility] HospitalUrine Tycikjjm2690-99-21 10:27:00* Test Item Value Reference Range Interpretation Comments Urine Bacteria (test code = 59548-4) NONE NONE [facility] HospitalUrine Epithelial Xmhoe8303-70-78 10:27:00 * Test Item Value Reference Range Interpretation Comments Urine Epithelial Cells (test code = 27711-4) RARE NONE [facility] HospitalUrine Usssq3230-33-29 09:20:00* Test Item Value Reference Range Interpretation Comments Urine Color (test code = 5778-6) YELLOW YELLOW [facility] HospitalUrine Qpbojvl1369-63-39 09:20:00* Test Item Value Reference Range Interpretation Comments Urine Clarity (test code = 61043-1) CLEAR CLEAR [facility] HospitalUrine Specific Hhecpsg3850-71-06 09:20:00 * Test Item Value Reference Range Interpretation Comments Urine Specific [place] (test code = 5811-5) 1.015 1.010-1.02 5 [facility] HospitalUrine jR0305-28-93 09:20:00* Test Item Value Reference Range Interpretation Comments Urine pH (test code = 95097-8) 5 5-7 [facility] HospitalUrine Leukocyte Iprczruu9729-15-83 09:20:00* Test Item Value Reference Range Interpretation Comments Urine Leukocyte Esterase (test code = 5799-2) NEGATIVE NEGATIVE [facility] Nrfuyfi7169-84-70 09:20:00* Test Item Value Reference Range Interpretation Comments Urine Nitrite (test code = 61501-8) NEGATIVE NEGATIVE [facility] Zwgiozg0692-47-17 09:20:00* Test Item Value Reference Range Interpretation Comments Urine Protein (test code = 5804-0) NEGATIVE NEGATIVE [facility] Glucose (UA)2017-03-13 09:20:00* Test Item Value Reference Range Interpretation Comments Urine Glucose (UA) (test code = 2349-9) NEGATIVE NEGATIVE [facility] Qoaiviv9730-05-12 09:20:00* Test Item Value Reference Range Interpretation Comments Urine Ketones (test code = 02135-6) NEGATIVE NEGATIVE [facility] Zstpedpmjkws9911-50-66 09:20:00* Test Item Value Reference Range Interpretation Comments Urine Urobilinogen (test code = 05979-7) 0.2 0.2-1 [facility] HospitalUrine Lcxferydd4845-20-57 09:20:00* Test Item Value Reference Range Interpretation Comments Urine Bilirubin (test code = 1978-6) NEGATIVE NEGATIVE [facility] HospitalUrine Yrgxn6035-80-42 09:20:00* Test Item Value Reference Range Interpretation Comments Urine Blood (test code = 32679-9) TRACE NEGATIVE H [facility] HospitalBedside Zyjbser7402-56-62 02:54:00* Test Item Value Reference Range Interpretation Comments Bedside Glucose (test code = 03555-5) 103 70-120 Meter ID: [id number] Medical CenterFerritin2017-10-15 14:02:00* Test Item Value Reference Range Interpretation Comments Ferritin (test code = 2276-4) 74.76 4.63-204.00 [facility] HospitalIron Kfzhj9369-38-59 13:46:00* Test Item Value Reference Range Interpretation Comments Iron Level (test code = 2498-4) 82 50-170 [facility] HospitalTotal Iron Binding Cxaizyfu8560-22-30 13:46:00* Test Item Value Reference Range Interpretation Comments Total Iron Binding Capacity (test code = 2500-7) 244 261-4 78 L [facility] HospitalPercent Iron Pxyiekwllj0421-18-79 13:46:00* Test Item Value Reference Range Interpretation Comments Percent Iron Saturation (test code = 2502-3) 34 15-50 [facility] HospitalTransferrin2017-10-15 13:46:00* Test Item Value Reference Range Interpretation Comments Transferrin (test code = 3034-6) 174 180-382 L [facility] HospitalPercent Reticulocyte Skddn9124-33-40 13:30:00* Test Item Value Reference Range Interpretation Comments Percent Reticulocyte Count (test code = 53370-4) 1.6 0.8-2 .2 [facility]tool Occult Oekbz5838-11-60 09:35:00* Test Item Value Reference Range Interpretation Comments Stool Occult Blood (test code = 2335-8) POSITIVE NEGATIVE H [facility] HospitalThyroid Stimulating Hormone (TSH) 2017-03-09 09:10:00* Test Item Value Reference Range Interpretation Comments Thyroid Stimulating Hormone (TSH) (test code = 51963-0) 2.526 0.350-4.940 [facility] HospitalTriglycerides Dcmvf3130-00-04 08:52:00* Test Item Value Reference Range Interpretation Comments Triglycerides Level (test code = 2571-8) 200 0-149 H [facility] HospitalCholesterol Dhkwh9157-57-61 08:52:00* Test Item Value Reference Range Interpretation Comments Cholesterol Level (test code = 2093-3) 109 0-199 Less than 200 mg/dL Low Tdpw274 - 239 mg/dL Borderline Scuh403 m g/dl and greater High Risk [facility] HospitalLDL Zjmkahtxuwm4088-26-04 08:52:00* Test Item Value Reference Range Interpretation Comments LDL Cholesterol (test code = 15376-4) 39 60-130 L [facility] HospitalHDL Spyqnorsvqp7605-07-71 08:52:00* Test Item Value Reference Range Interpretation Comments HDL Cholesterol (test code = 2085-9) 30 40-60 L [facility] HospitalCholesterol/HDL Mibzc7569-92-80 08:52:00 * Test Item Value Reference Range Interpretation Comments Cholesterol/HDL Ratio (test code = 9830-1) 3.6 3.0-3.6 [facility] HospitalCreatine Kinase IG4892-64-66 00:11:00* Test Item Value Reference Range Interpretation Comments Creatine Kinase MB (test code = 90373-1) 1.10 0.00-5.00 [facility] HospitalTroponin A5507-17-60 00:11:00* Test Item Value Reference Range Interpretation Comments Troponin I (test code = NCN0720) 0.013 0-0.300 [facility] HospitalCreatine Csszgl5973-76-75 00:10:00* Test Item Value Reference Range Interpretation Comments Creatine Kinase (test code = 2157-6) 19 29-168 L [facility] HospitalAmylase Hyovx2290-72-98 13:01:00* Test Item Value Reference Range Interpretation Comments Amylase Level (test code = 1798-8) 77 25-125 [facility] HospitalLipase2017-10-14 13:01:00* Test Item Value Reference Range Interpretation Comments Lipase (test code = 3040-3) 93 8-78 H [facility] HospitalProthrombin Vxqc8125-84-01 08:11:00* Test Item Value Reference Range Interpretation Comments Prothrombin Time (test code = 5902-2) 14.2 11.9-14.5 [facility] HospitalProthromb Time International Ratio 2017-03-08 08:11:00* Test Item Value Reference Range Interpretation Comments Prothromb Time International Ratio (test code = 6301-6) 1.05 Oral Anticoagulant Therapy INR Values:1. Low Intensity Therapy 1.5 - 2.02 . Moderate Intensity Therapy 2.0 - 3.03. High Intensity Therapy(1) 2.5 - 3. 54. High Intensity Therapy(2) 3.0 - 4.05. Panic Value INR > 5.0 [facility] HospitalActivated Partial Thromboplast Time 2017-03-08 08:11:00* Test Item Value Reference Range Interpretation Comments Activated Partial Thromboplast Time (test code = 77430-2) 34.5 23.8-35.5 [facility] HospitalBlood Dymnlvi4342-99-61 17:04:00* Test Item Value Reference Range Interpretation Comments Blood Culture (test code = 56758072) NO GROWTH AFTER 5 DAYS, FINAL REPORT [facility] A IgM Zaoszucg6880-38-30 06:17:00* Test Item Value Reference Range Interpretation Comments Hepatitis A IgM Antibody (test code = 75342-2) Negative Negativ e [facility] B Surface Klwuoxv7691-26-38 06:17:00* Test Item Value Reference Range Interpretation Comments Hepatitis B Surface Antigen (test code = 5196-1) Negative Negat scottie [facility] B Core IgM Qhfmptgv8369-31-84 06:17:00* Test Item Value Reference Range Interpretation Comments Hepatitis B Core IgM Antibody (test code = 67833-3) Negative Ne gative [facility] C Ztvificm9795-74-21 06:17:00* Test Item Value Reference Range Interpretation Comments Hepatitis C Antibody (test code = 59312-9) -0.1 0.0-0.9 Negative: < 0.8 Indeterminate: 0.8 - 0.9 Positive: > 0.9 The CDC recommends that a positive HCV antibody result be followed up with a HCV Nucleic Acid Amplification test (924897).Performed at: [facility] [address] [place] [address] [id number] Director: Dao Barrera MD, Phone: [phone] [facility] [address] [address] Patient Name: YUE RAMSEY MR #: [id number] : 1935 Age/Sex: 81/F Req #: [id number] Adm Physician: Ordered by: NEERAJ TIRADO MD Report #: [id number] Location: ER Room/Bed: Procedure: [id number] DX/CHEST SINGLE (PORTABLE) E xam Date: 03/13/17 Exam Time: 0935 REPORT STATU S: Signed PROCEDURE: CHEST SINGLE [...] at 10:00 Dictated By: DOE LEWIS MD 10 00 Transcribed By: NAM on 03/13/17 1000 COPY TO: NEERAJ TIRADO MD CT BRAIN WO [place] [address] Patient Name: YUE RAMSEY MR #: [id number] : 1935 Age/Sex: 81[id number] Req #: [id number] Adm Physician: Ordered by: NEERAJ TIRADO MD Report #: [id number] Location: ER Room/Bed: Procedure: [id number] CT/CT BRAIN WO Exam Date: Exam Time: [...] on 03/13/17 1115 Transcribed By: GELY on 03/13/171114 COPY TO: NEERAJ TIRADO MD ABDOMEN-1VIEW (KUB) [address] [address] Patient Name: YUE RAMSEY MR #: [id number] : 1935 Age/Sex: 81/F Req #: [id number] Adm Physicia n: SANDRA CHASE MD Ordered by: MATTHEW GALAVIZ MD Report #: [id number] Loca tion: [facility] Room/Bed: [facility] 1979 Procedure: [id number] DX/ABDOMEN-1VIEW (KUB) Exam Date: 03/08/17 Exam Time [...] O: MATTHEW GALAVIZ MD US ABDOMEN COMPLETE [place] [address] Patient Name: YUE RAMSEY MR #: [id number] : 1935 Age/Sex: 81/F Req #: [id number] Adm Physician: SANDRA CHASE MD Ordered by: MATTHEW GALAVIZ MD Report #: [id number] Location: [facility] Room/Bed: [place] [address] Procedure: [id number] US/US ABDOMEN COMPLETE Exam Date: Exam Time: [...] TO: MATTHEW GALAVIZ MD MRI MRCP WO [place] [address] Patient Name: YUE RAMSEY MR #: [id number] : 1935 Age/Sex: 81/F Req #: [id number] Adm Physician: SANDRA CHASE MD Ordered by: ABRAHAM TOLENTINO MD Report #: [id number] Location: [facility] Room/Bed: [facility] Procedure: [id number] MRI/MRI MRCP WO Exam Date: 01/13/17 Exam Time: 0850 REPORT STATUS: Signed EXAM: Magnetic Resonance Cholangiopancreatogr aphy (M.R.C.P.) INDICATION: COMPARISON: Abdominal ultra sound 01/12/2017, abdominal CT 01/12/2017 TECHNIQUE: Multiplanar, multisequence MRCP was performed, with sequences including coronal turbo spin-echo T1-weight ed scans, [facility] MRCP scans, coronal spin, coronal MPR 2, SMRCP 3D HR, [facility] MRCP R AI. IV Contrast: None Oral [...] PM Dic tated By: NICK KING MD 1541 COPY TO: OMID TOLENTINO MD CHEST 2 VIEWS [place] [address] Patient Name: YUE RAMSEY MR #: [id number] : 1935 Age/Sex: 81/F Req #: [id number] Adm Physician: Ordered by: NEERAJ TIRADO MD Report #: [id number] Location: ER Room/Bed: Procedure: [id number] DX/CHEST 2 VIEWS Exam Date: 01/12/17 Exam [...] 3:31 PM Dictated By: JULIO BYRD MD 1531 COPY TO: NEERAJ TIRADO MD CT ABDOMEN/PELVIS WO [place] [address] Patient Name: YUE RAMSEY MR #: [id number] : 1935 Age/Sex: 81/F Req #: [id number] Adm Physician: Ordered by: NEERAJ TIRADO MD Report #: [id number] Location: ER Room/Bed: Procedure: [id number] CT/CT ABDOMEN/PELVIS WO Exam Date: 01/12/17 Exam [...] 3:44 PM Dictated By: JULIO BYRD MD 2543 Transcribed By: GELY on 01/12/17 1544 COPY TO: NEERAJ TIRADO MD US LIVER [place] [address] Patient Name: YUE RAMSEY MR #: [id number] : 1935 Age/Sex: 81/F Req #: [id number] Adm Physician: SANDRA CHASE MD Ordered by: NEERAJ TIRADO MD Report #: [id number] Location: [facility] Room/Bed: [place] [address] Procedure: [id number] US/US LIVER Exam Date: Exam Time: REPORT [...]
[2020-03-12] MEDS ORDERED: MORPHINE SULFATE 2 MG/ML SYR 1ML IV ONE (11:01)
--- NOTE | 2020-03-12 11:13 | Emergency Department Note ---
History of Present Illnes History of Present Illness Chief Complaint: Head/Face Trauma History of Present Illness This is a 84 year old female arrived to the ED if sustaining a m echanical fall. Chief Complaint Comment PATIENT BROUGHT IN FROM HOME BY AMBULANCE AFTER EXPERIENCING A GROUND LEVEL FALL. PATIENT HAS LACERATION TO RIGHT SIDE OF FOREHEAD BLEEDING IS CONTROLLED, PAIN TO BILATERAL THIGHS. 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 Any updates have been documented here. Past Medical History Recent Fever: No Clinical Suspicion of Infectio: No New/Unexplained Change in Ment: No Past Medical History: Hypertension, Hypothyroidism, UTI's, GERD, Osteoarthritis Other Medical History: Gout Neuropathy Ovarian/Cervical cancer Past Surgical History: Hysterectomy, Pacer/AICD Other Surgery: Renal artery stent Knee replacement Social History Smoking Cessation: Never Smoker Alcohol Use: None Any Illegal Drug Use: No Physically hurt or threatened: No Other Last Tetanus: OOD Review of Systems Review of Systems Constitutional: Reports no symptoms EENTM: Reports no symptoms Cardiovascular: Reports no symptoms Respiratory: Reports no symptoms Gastrointestinal: Reports no symptoms Genitourinary: Reports no symptoms Musculoskeletal: Reports as per HPI Integumentary: Reports no symptoms Neurological: Reports no symptoms Psychological: Reports no symptoms Endocrine: Reports no symptoms Hematological/Lymphatic: Reports no symptoms Physical Exam Related Data Allergies: Coded Allergies: Penicillins (Verified Allergy, Mild, 11/10/18) Triage Vital Signs Vital Signs Date Time Temp Pulse Resp B/P (MAP) Pulse Ox O2 Delivery O2 Flow Rate FiO2 03/12/20 10:27 98.6 60 18 155/66 97 Room Air Vital signs reviewed: Yes Physical Exam CONSTITUTIONAL Constitutional: Present well-developed, Present well-nourished HENT HENT: Present normocephalic, Present oropharynx clear/moist, Present nose normal HENT L/R: Present left ext ear normal, Present right ext ear normal EYES Eyes: Reports PERRL, Reports conjunctivae normal NECK Neck: Present ROM normal PULMONARY Pulmonary: Present effort normal, Present breath sounds normal CARDIOVASCULAR Cardiovascular: Present regular rhythm, Present heart sounds normal, Present capillary refill normal, Present normal rate GASTROINTESTINAL Abdominal: Present soft, Present nontender, Present bowel sounds normal GENITOURINARY Genitourinary: Present exam deferred SKIN Skin: Present warm, Present dry MUSCULOSKELETAL Musculoskeletal: Present ROM normal NEUROLOGICAL Neurological: Present alert, Present oriented x 3, Present no gross motor or sensory deficits PSYCHOLOGICAL Psychological: Present mood/affect normal, Present judgement normal Results Laboratory Lab results reviewed: Yes Imaging Imaging results reviewed: Yes Impressions IMPRESSION: 1. No acute intracranial hemorrhage. 2. Mild chronic microvascular ischemic changes, stable compared to MRI of 06/29/2019. Signed by: Dr. Savi Castro M.D. on 03/12/2020 11:47 AM Procedures Laceration Laceration: Laceration 1 Site: face Side: right Description: linear Local anesthesia: lidocaine 1% Skin layer closed with: vicryl Size (cm): 6-0 Technique: simple, interrupted Subcutaneous layer closed w: chromic gut Size (cm): 5-0 Assessment & Plan Medical Decision Making MDM 84-year-old female arrived to the ED after having a mechanical fall. noted that his has been more dizzy and falling more frequently. Concerns of a possible near syncopal episode but may be cardiogenic in origin given nela ent's age and chief complaint. Patient admitted for further workup and monitoring. Assessment & Plan Final Impression: (1) Near syncope Depart Disposition: ADMITTED Last Vital Signs Date Time Temp Pulse Resp B/P (MAP) Pulse Ox O2 Delivery O2 Flow Rate FiO2 03/12/20 10:27 98.6 60 18 155/66 97 Room Air Home Meds Reported Medications Memantine HCl (Memantine HCl) 5 Mg Tablet, 5 MG PO DAILY 03/13/20 Levocetirizine Dihydrochloride (LEVOCETIRIZINE DIHYDROCHLORIDE) 5 Mg Tablet, 5 MG PO HS 11/06/19 Metoprolol Succinate (METOPROLOL SUCCINATE) 50 Mg Tab.er.24h, 50 MG PO DAILY, MG 11/06/19 Minocycline Hcl (MINOCYCLINE HCL) 50 Mg Capsule, 100 MG PO BID for PRO, #60 TAB 09/01/19 Donepezil Hcl (DONEPEZIL HCL) 10 Mg Tablet, 10 MG PO HS 08/31/19 [Folic acid] No Conflict Check, 1 MG PO DAILY 08/31/19 Thiamine HCl (B-1) 100 Mg Tablet, 100 MG PO DAILY 08/31/19 Ubidecarenone (COQ-10) 100 Mg Capsule, 100 MG PO DAILY 08/31/19 Levothyroxine Sodium (LEVOTHYROXINE SODIUM) 75 Mcg Tablet, 75 MCG PO DAILY, #30 TAB 08/31/19 Temple-3 Fatty Acids/Fish Oil (OMEGA 3 FISH OIL SOFTGEL) 1 Each Capsule.dr, 1000 MG PO DAILY 06/03/19 Tramadol Hcl* (ULTRAM 50MG*) 50 Mg Tab, 50 MG PO TID PRN for MODERATE PAIN (4- 6), TAB 06/03/19 Docusate Sodium (COLACE) 100 Mg Cap, 100 MG PO DAILY PRN for CONSTIPATION, #30 CAP 06/03/19 Vit C/E/Zn/Coppr/Lutein/Zeaxan (Preservision Areds 2 Softgel) 1 Each Capsule, 1 CAP PO DAILY 06/03/19 Pantoprazole Sodium* (PROTONIX) 40 Mg Tablet.dr, 40 MG PO Q12H, TAB 06/03/19 Nifedipine (NIFEDIPINE ER) 30 Mg Tab.er.24, 30 MG PO HS 06/03/19 Rosuvastatin Calcium (CRESTOR) 10 Mg Tab, 10 MG PO DAILY THERAPEUTICALLY SUBSTITUTED WITH SIMVASTATIN 40MG 03/08/17 Gabapentin (GABAPENTIN) 100 Mg Capsule, 100 MG PO TID 03/08/17 Alendronate Sodium (ALENDRONATE SODIUM) 70 Mg Tablet, 70 MG PO weekly 08/03/14 Aspirin (ASPIRIN) 81 Mg Tab.chew, 2 TAB PO DAILY 12/12/13 Discontinued Reported Medications Albuterol Sulfate (Proair Digihaler) 90 Mcg Aer.pw.bas, 0.09 MG INH QID PRN for WHEEZING 08/31/19 Medications in the ED Morphine Sulfate 2 mg NOW ONCE IV ; Start 03/12/20 at 11:01; Stop 03/12/20 at 11:06; Status MÓNICA MURILLO DO Mar 12, 2020 11:13
[2020-03-12] MEDS ORDERED: LORAZEPAM INJ 2 MG/ML VIAL ONE (11:29)
[2020-03-12] MEDS ORDERED: ONDANSETRON HCL INJ 2MG/ML 2ML 2 MG/ML VIAL ONE (11:29)
--- NOTE | 2020-03-12 11:50 | Diagnostic Imaging Report ---
EXAMINATION: Head CT HISTORY: Status post fall, head trauma, laceration to the right side of the head, pain. COMPARISON: Brain MRI 06/29/2019 TECHNIQUE: Helical axial images of the head were obtained. Reformatted coronal and sagittal images from the axial data. Dose modulation, iterative reconstruction, and/or weight based adjustment of the mA/kV was utilized to reduce the radiation dose to as low as reasonably achievable. FINDINGS: Parenchyma: 1. Persistent hematocrit O ischemic changes. 2. No mass or hemorrhage. No CT evidence of acute territorial vascular insult. Extra-axial spaces:No abnormal density. No extra-axial fluid collections Brain volume: Normal for age. Ventricles: No hydrocephalus or displacement. Arteries: No density suggestive of thrombus. Dural sinuses: No abnormal density. Foramen magnum: No mass, Chiari malformation, or basilar invagination. Sella: No obvious mass. Paranasal/mastoid sinuses: Imaged portions unremarkable. Skull/Scalp: No lytic or blastic lesions. No fractures. IMPRESSION: 1. No acute intracranial hemorrhage. 2. Mild chronic microvascular ischemic changes, stable compared to MRI of 06/29/2019. Signed by: Dr. Savi Castro M.D. on 03/12/2020 11:47 AM
[2020-03-12] MEDS ORDERED: ONDANSETRON HCL INJ 2MG/ML 2ML 2 MG/ML VIAL IV ONE (11:52)
--- NOTE | 2020-03-12 11:59 | Diagnostic Imaging Report ---
Exam: AP radiograph of the pelvis-1 view Clinical History: Fall. Comparison: None. Findings/Impression: No evidence of acute fracture or malalignment. Mild degenerative changes of bilateral hips and pubic symphysis. Bilateral hyperdensities, likely soft tissue calcifications overlie the pelvis. Signed by: Dr. Casimiro Moe MD on 03/12/2020 11:56 AM
[2020-03-12] MEDS ORDERED: LORAZEPAM INJ 2 MG/ML VIAL IV ONE (12:00)
--- NOTE | 2020-03-12 12:04 | Diagnostic Imaging Report ---
EXAMINATION: CT of the cervical spine HISTORY: Status post fall, trauma, head and neck pain COMPARISON: None available TECHNIQUE: Multidetector helical axial images were obtained without contrast from the foramen magnum to T1. Dose modulation, iterative reconstruction, and/or weight based adjustment of the mA/kV was utilized to reduce the radiation dose to as low as reasonably achievable. FINDINGS: Alignment: Normal alignment and lordosis Soft tissues: Normal Vertebrae: Normal height and density. No acute fracture, infection or neoplasm Degenerative changes: C1-C2: Mild degenerative changes without stenosis. C2-C3: Mild facet arthrosis without stenoses. C3-C4: Disc osteophyte complex formation, bilateral uncovertebral and facet arthrosis. Mild spinal canal and moderate foraminal stenoses on the right. Mild left foraminal stenosis. C4-C5: Asymmetric right disc osteophyte complex formation, uncovertebral and facet arthrosis. Moderately severe right foraminal stenosis. Mild canal narrowing. C5-C6: Disc osteophyte complex formation, bilateral uncovertebral and facet arthrosis. Moderate spinal canal and bilateral foraminal stenosis. C6-C7: Distal cephalic observation, bilateral uncovertebral and facet arthrosis. Moderately severe right and mild left foraminal stenosis. C7-T1: Normal IMPRESSION: 1. No acute cervical spine postraumatic abnormalities. 2. Chronic degenerative changes as detailed above. Note: Acute postraumatic spinal cord, vascular or ligamentous injuries cannot adequately be assessed by CT. Signed by: Dr. Savi Castro M.D. on 03/12/2020 12:00 PM
--- NOTE | 2020-03-12 12:06 | Diagnostic Imaging Report ---
EXAMINATION: CHEST SINGLE (PORTABLE) INDICATION: Fall. COMPARISON: Multiple prior chest radiographs including most recent on 02/14/2020. FINDINGS: TUBES and LINES: Double lead cardiac pacemaker overlying the left chest wall. LUNGS: Normal lung volumes. Redemonstration of increased interstitial lung markings. No consolidations. Previously noted nodular density overlying the left midlung likely corresponds to healing rib fracture. PLEURA: No pleural effusion. Apparent lucency at the left lung apex. There are likely lung markings peripherally. HEART AND MEDIASTINUM: The cardiomediastinal silhouette is unremarkable. BONES AND SOFT TISSUES: No acute osseous abnormality. Diffuse osteopenia. UPPER ABDOMEN: No free air under the diaphragm. IMPRESSION: Apparent lucency at the left lung apex, with likely lung markings peripherally, which may represent artifact although pneumothorax may have a similar appearance. Recommend repeat chest radiograph with right lateral decubitus (right side down) view. Previously noted nodular density overlying the left midlung likely corresponds to healing rib fracture. Signed by: Dr. Casimiro Moe MD on 03/12/2020 12:02 PM
[2020-03-12] MEDS ORDERED: HYDRALAZINE HCL 20 MG/ML VIAL IV STA (12:07)
[2020-03-12] MEDS ORDERED: CLONIDINE HCL 0.1 MG TAB PO ONE (12:15)
--- OUTSIDE RECORDS SUMMARY | 2020-03-12 13:09 | XMS REPORT | Continuity of Care Document ---
Author Author [facility] t Organization [facility] Address [address] [place] [address] Phone Unavailable Care Team Providers Care Scoring Machine Operator Name Role Phone RENA FERMIN, MD Julio FLORES PCP Mariam HINDS Attphys Unavailable Monica GREER Attphys Unavailable DAHU, S JIRIES Attphys Unavailable CHASE, Julio CALDERAUL Attphys Unavailable Jimmy GAGNON Attphys Unavailable SHAILA LANDA Attphys Unavailable Kurt BROWN Attphys Unavailable Monica ALONSO Attphys Unavailable CANDIDA, David PICKARD Attphys Unavailable DAHU, S JIRIES Admphys Unavailable CHASE, Julio FLORES Admphys Unavailable Payers Payer Name Policy Type Policy Number Effective Date Expiration Date Mariam childs PHILLY [id number] 2019 00:00:00 [facility] Medicare A & B [id number] 2002 00:00:00 [facility] Problems Condition Name Condition Details Condition Category Status Onset Date Resolution Date Last Treatment Date Treating Clinician Comments Source 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 Active 2014-08-03 00:00:00 [facility] Angioedema Angioedema Problem Active 2014-05-10 00:00:00 [facility] Swelling of submandibular region Submandibular swelling Problem Active 2014-05-10 00:00:00 [facility] Altered mental status Altered mental state Problem Active [facility] Urinary tract infection UTI (urinary tract infection) Problem Active [facility] Elevated liver enzymes Elevated liver enzymes Problem Active [facility] Diarrhea Diarrhea Problem Active [facility] Vomiting Vomiting Problem Active [facility] Atrial fibrillation with rapid ventricular response At rial fibrillation with RVR Problem Active [facility] New onset atrial fibrillation New onset a-fib Problem Active [facility] Syncope and collapse Syncope and collapse Problem Active [facility] Chest pain Chest pain Problem Active C [facility] Increased serum lipase level Elevated lipase Problem Active [facility] Hypertensive urgency Hypertensive urgency Problem Active [facility] Symptomatic bradycardia Symptomatic bradycardia Problem Active [facility] Weakness Weakness Problem Active [facility] Pre-syncope Problem Active [facility] Fall Problem Active [facility] Dizziness Problem Active [facility] Fracture of rib Problem Active [facility] Allergies, Adverse Reactions, Alerts Allergy Name Allergy Type Status Severity Reaction(s) Onset Date Inacti ve Date Treating Clinician Comments Source Penicillin Allergy to substance Active Mild 2018-11-10 00:00:00 [facility] Social History Social Habit Start Date Stop Date Quantity Comments Source Sex Ass[birth year] At 1935 00:00:00 1935 00:00:00 Female [facility] Medications Ordered Medication Name Filled Medication Name Start Date Stop Da te Current Medication? Ordering Clinician Indication Dosage Frequency Signature (SIG) Comments Components Source Nitrofurantoin Monohyd/M-Cryst (Macrobid 100 Mg Capsul e) 100 Mg CAPSULE Nitrofurantoin Monohyd/M-Cryst (Macrobid 100 Mg Capsule) 100 Mg CAPSULE 2019-04-24 10:02:00 2019-07-02 00:00:00 No 100 Twice A Day [facility] Albuterol Sulfate (Proair Digihaler) 90 Mcg AER.PW.BAS Albuterol Sulfate (Proair Digihaler) 90 Mcg AER.PW.BAS Yes .09 Four Times Daily as needed for Wheezing [facility] Alendronate Sodium Alendronate Sodium Yes 70 We ekly [facility] Aspirin Aspirin Yes 2 Daily [facility] Docusate Sodium (Colace) 100 Mg CAP Docusate Sodium (Colace) 100 Mg C AP Yes 100 Daily as needed for Constipation [facility] Donepezil Hcl Donepezil Hcl Yes 10 Bedtime [facility] Folic Acid Folic Acid Yes 1 Daily [facility] Gabapentin Gabapentin Yes 100 Three Times A Day [facility] Levocetirizine Dihydrochloride Levocetirizine Dihydrochloride Yes 5 Bedtime [facility] Levothyroxine Sodium Levothyroxine Sodium Yes 75 Daily [facility] Metoprolol Succinate Metoprolol Succinate Yes 50 Daily [facility] Minocycline Hcl Minocycline Hcl Yes 100 Twice A Day for Pro [facility] Nifedipine (Nifedipine Er) 30 Mg TAB.ER.24 Nifedipine (Nifedipine Er) 30 Mg TAB.ER.24 Yes 30 Bedtime [facility] [place]-3 Fatty Acids/Fish Oil ([place] 3 Fish Oil Softgel ) 1 Each CAPSULE.DR Gann- 3 Fatty Acids/Fish Oil ([place] 3 Fish Oil Softgel) 1 Each CAPSULE. Yes 1000 Daily [facility] Pantoprazole Sodium (Protonix) 40 Mg TABLET. Pantopr azole Sodium (Protonix) 40 Mg TABLET. Yes 40 Every 12 Hours [facility] Rosuvastatin Calcium (Crestor) 10 Mg TAB Rosuvastatin Calcium (Crestor) 10 Mg TAB Yes 10 Daily [facility] Thiamine Hcl (B-1) 100 Mg TABLET Thiamine Hcl (B-1) 100 Mg TABLET Yes 100 Daily [facility] Tramadol Hcl (Ultram 50MG*) 50 Mg TAB Tramadol Hcl (Ultram 50MG*) 5 0 Mg TAB Yes 50 Three Times A Day as needed for Moderate Pain (4-6) [facility] Ubidecarenone (Coq-10) 100 Mg CAPSULE Ubidecarenone (Coq-10) 100 Mg CAPSULE Yes 100 Daily [facility] Vit C/E/Zn/Coppr/Lutein/Zeaxan (Preservision Areds 2 S oftgel) 1 Each CAPSULE Vit C/E/Zn/Coppr/Lutein/Zeaxan (Preservision Areds 2 Softgel) 1 Each CAPSULE Yes 1 Daily [facility] Fluconazole Fluconazole 2019-09-01 00:00:00 No 100 [facility] Meclizine Hcl Meclizine Hcl 2019-09-01 00:00:00 No 12.5 Daily [facility] Meloxicam Meloxicam 2019-09-01 00:00:00 No 15 Daily as needed for Mild Pain (1-3) [facility] Montelukast Sodium Montelukast Sodium 2019-09-01 00:00:00 No 10 Daily [facility] Nitrofurantoin Macrocrystal (Nitrofurantoin) 100 Mg CA PSULE Nitrofurantoin Macrocrystal (Nitrofurantoin) 100 Mg CAPSULE 2019-09-01 00:00:00 No 100 [facility] Levocetirizine Dihydrochloride Levocetirizine Dihydrochloride 2019-08-31 00:00:00 No 5 Bedtime [facility] Levothyroxine Sodium Levothyroxine Sodium 2019-08-31 00:00:00 No 75 Daily [facility] Ubidecarenone (Coq10) 50 Mg TAB.CHEW Ubidecarenone (Coq10) 50 Mg TAB.CHEW 2019-08-31 00:00:00 No 100 Daily [facility] Donepezil Hcl (Aricept) 5 Mg TABLET Donepezil Hcl (Aricept) 5 Mg TABLET 2019-07-02 00:00:00 No 5 Bedtime [facility] Hydralazine Hcl Hydralazine Hcl 2019-07-02 00:00:00 No 25 Twice A Day as needed for Prn [facility] Meclizine Hcl Meclizine Hcl 2019-07-02 00:00:00 No 25 As Needed [facility] Meloxicam Meloxicam 2019-07-02 00:00:00 No 15 Daily as needed for Prn [facility] Albuterol Sulfate (Proair Hfa Inhaler*) 8.5 Gm INH Alb uterol Sulfate (Proair Hfa Inhaler*) 8.5 Gm INH 2019-06-03 00:00:00 No 1 As Needed [facility] Amlodipine Besylate Amlodipine Besylate 2019-06-03 00:00:00 No 10 Bedtime [facility] Fluticasone Propionate Fluticasone Propionate 2019-06-03 00:00:00 No Daily [facility] Hydralazine Hcl Hydralazine Hcl 2019-06-03 00:00:00 No 50 Three Times A Day [facility] Meclizine Hcl Meclizine Hcl 2017-09-01 00:00:00 No [facility] Baclofen Baclofen 2017-03-14 00:00:00 No 10 Three T imes A Day [facility] Meloxicam Meloxicam 2017-03-11 00:00:00 No 15 Daily [facility] Cetirizine Hcl Cetirizine Hcl 2017-03-08 00:00:00 No 10 Daily [facility] Fluticasone Propionate (Flonase) 16 Gm SPRAY.SUSP Flut icasone Propionate (Flonase) 16 Gm SPRAY.SUSP 2017-03-08 00:00:00 No 16 Daily [facility] Levofloxacin (Levaquin) 500 Mg TABLET Levofloxacin (Levaquin) 50 0 Mg TABLET 2017-03-08 00:00:00 No 500 Daily [facility] Loratadine Loratadine 2017-03-08 00:00:00 No 10 Jayna ly [facility] Antivert Antivert 2017-01-14 00:00:00 No As Need ed [facility] Areds Areds 2017-01-14 00:00:00 No 2 Twice A Day [facility] Nitrofurantoin Macrocrystal (Nitrofurantoin) 100 Mg CA PSULE Nitrofurantoin Macrocrystal (Nitrofurantoin) 100 Mg CAPSULE 2017-01-14 00:00:00 No 100 Twice A Day [facility] Furosemide Furosemide 2017-01-12 00:00:00 No 20 Chiquis ry Other Day [facility] Prednisone Prednisone 2017-01-12 00:00:00 No 5 Twi ce A Day [facility] Ciprofloxacin Hcl (Cipro) 500 Mg TABLET Ciprofloxacin Hcl (C ipro) 500 Mg TABLET 2014-08-05 00:00:00 No 500 Every 12 Hours [facility] Cholecalciferol (Vitamin D3) (Vitamin D) 1,000 Unit [facility]LET Cholecalciferol (Vitamin D3) (Vitamin D) 1,000 Unit TABLET 2014-03-19 00:00:00 No 1000 Daily [facility] Lidocaine (Lidoderm) 700 Mg ADH..PATCH Lidocaine (Lidoderm) 700 Mg ADH..PATCH 2014-03-19 00:00:00 No 1 12HOURS [facility] Lisinopril Lisinopril 2014-03-19 00:00:00 No 20 Twi ce A Day [facility] Tizanidine Hcl (Zanaflex) 2 Mg CAPSULE Tizanidine Hcl (Zanaflex) 2 Mg CAPSULE 2014-03-19 00:00:00 No 2 Every 12 Hours [facility] Vit A,C & E/Lutein/Minerals (Ocuvite Tablet) 1 Each TA BLET Vit A,C & E/Lutein/Minerals (Ocuvite Tablet) 1 Each TABLET 2014-03-19 00:00:00 N o 1 Daily [facility] Niacin Niacin 2013-12-14 00:00:00 No 500 Daily [facility] Rosuvastatin Calcium (Crestor) 10 Mg TAB Rosuvastatin Calcium (Crestor) 10 Mg TAB 2013-12-14 00:00:00 No 10 Daily [facility] Vital Signs Vital Name Observation Time Observation Value Comments Source Body Temperature 2019-11-07 15:43:00 98.0 [degF] [facility] Weight 2019-11-07 04:53:00 128.25 [lb_av] [facility] BMI (Body Mass Index) 2019-11-07 04:53:00 20.1 kg/m2 [facility] Body Temperature 2019-10-02 13:00:00 99.6 [degF] [facility] BMI (Body Mass Index) 2019-10-01 20:59:00 22.6 kg/m2 [facility] Weight 2019-10-01 15:23:00 136 [lb_av] [facility] Procedures Procedure Date / Time Performed Performing Clinician [facility] e Computed tomography of brain without radiopaque contrast 2019-10 00:00:00 [facility] Computed tomography of brain without radiopaque contrast 2019-09 00:00:00 [facility] Computed tomography of cervical spine without contrast 8 00:00:00 [facility] INSERT PACE. DUAL SATISH IN CHEST SUBCU/FASCIA, OPEN 2019-08-31 00 :00:00 [facility] INSERTION OF PACEMAKER LEAD INTO RIGHT ATRIUM, PERC AP PROACH 2019-08-31 00:00:00 [facility] INSERTION OF PACEMAKER LEAD INTO R VENTRICLE, PERC APPROACH 2019-08-31 00:00:00 [facility] CT angiography of chest 2019-07-24 00:00:00 HAWA GAGNON [facility] Computed tomography angiography of abdom en and pelvis without then with contrast 2019-07-24 00:00:00 HAWA GAGNON [facility] CYSTOSCOPY & URETER CATHETER 2019-07-21 00:00:00 [facility] REMOVE ANAL FIST SUBQ 2019-07-16 00:00:00 [facility] X-ray of chest, two views 2019-07-15 00:00:00 ROSA GREER [facility] Magnetic resonance imaging of brain without contrast 2019-06 00:00:00 ILANA PALMER Julio [facility] CT angiography of neck 2019-06-29 00:00:00 ILANA PALMER Julio [facility] Computed tomography angiography of brain 2019-06-29 00:00:00 ILANA CARTER Julio [facility] Computed tomography of brain without radiopaque contrast 00:00:00 CHASE SANDRA Julio [facility] Ultrasound, renal 2019-06-22 00:00:00 HAMPELSHAILA [facility] INCISION OF ANAL SPHINCTER 2019-06-03 00:00:00 Jimmy [facility] Computed tomography of abdomen and pelvis with contrast 2018 00:00:00 GIRISH BROWN [facility] Plan of Care Planned Activity Planned Date Details Comments Source Instructions [facility] Encounters Start Date/Time End Date/Time Encounter Type Admission Type Attendi [facility] Care Department Encounter ID Source 2019-10-01 17:59:00 2019-10-02 15:18:00 Discharged Inpatient (obs) 1 GAETANO AVILA [facility] [id number] [facility] 2019-08-30 21:57:00 2019-09-01 12:07:00 Discharged Inpatient 1 SANDRA CHASE [facility] [id number] [facility] 2019-07-24 17:01:00 2019-07-24 22:33:00 Departed Emergency Room 1 HAWA GAGNON [facility] [id number] [facility] 2019-07-21 08:45:00 2019-07-21 08:45:00 Registered Surgical Day Care [facility] [id number] [facility] 2019-07-16 08:52:00 2019-07-16 08:52:00 Registered Surgical Day Car e RONALD OCHOAGE [facility] [id number] [facility] 2019-06-27 15:13:00 2019-07-02 12:50:00 Discharged Inpatient 1 SANDRA CHASE [facility] [id number] [facility] 2019-06-22 14:20:00 2019-06-22 14:20:00 Registered Clinic 3 SHAILA GAEMZ [facility] [id number] [facility] 2019-06-03 05:26:00 2019-06-03 05:26:00 Registered Surgical Day Care [facility] [id number] [facility] 2019-05-04 08:42:00 2019-05-25 22:59:00 Discharged Recurring [facility] [id number] [facility] 2019-05-22 08:53:00 2019-05-22 09:23:00 Departed Emergency Room [facility] [id number] [facility] 2019-05-12 05:07:00 2019-05-12 09:37:00 Departed Emergency Room [facility] [id number] [facility] 2019-04-24 07:27:00 2019-04-24 11:14:00 Departed Emergency Room [facility] [id number] [facility] 2019-04-15 07:35:00 2019-04-15 11:07:00 Departed Emergency Room 1 STEPHANIEGIRISH [facility] [id number] [facility] 2018-11-10 05:53:00 2018-11-11 11:15:00 Discharged Inpatient (obs) 1 FELICITY ALONSO [facility] [id number] [facility] 2018-05-21 13:09:00 2018-05-21 20:57:00 Departed Emergency Room 1 GIRISH BROWN [facility] [id number] [facility] 2018-01-30 09:12:00 2018-01-30 09:12:00 Registered Clinic 3 SANDRA ARITA [facility] [id number] [facility] 2017-09-01 08:23:00 2017-09-01 11:00:00 Departed Emergency Room [facility] [id number] [facility] 2017-03-13 13:26:00 2017-03-14 10:42:00 Discharged Inpatient (obs) ER NEERAJ TIRADO [facility] [id number] [facility] 2017-03-08 10:13:00 2017-03-11 11:11:00 Dis[address] In[address] ER RENA [facility] [place] [id number] [facility] 2017-01-12 18:40:00 2017-01-14 11:30:00 Discharged Inpatient ER CHASE [facility] [place] [id number] [facility] Results Test Description Test Time Test Comments Results Result Comments Source CHEST SINGLE (PORTABLE) 2020-03-12 11:56[facility] 1935 Sex: [place] [address] Patient Name: YUE RAMSEY MR #: [id number] : 1935 Age/Sex: 84/F Req #: [id number] [facility] Physician: Ordered by: MÓNICA HINDS DO Report #: [id number] Location: ER Room/Bed: Procedure: [id number] DX/CHEST SINGLE (PORTABLE) Exam Date: 03/12/20 Exam Time: 1047 REPORT STATUS: Signed EXAMINATION: CHEST SINGLE (PORTABLE) INDICATION: Fall. COMPARISON: Multiple prior chest radiographs including most recent on 02/14/2020. FINDINGS: TUBES and LINES: Double lead cardiac pacemaker overlying the left chest wall. LUNGS: Normal lung volumes. Redemonstration of increased interstitial lung markings. No consolidations. Previously noted nodular density overlying the left midlung likely corresponds to healing rib fracture. PLEURA: No pleural effusion. Apparent lucency at the left lung apex. There are likely lung markings peripherally. HEART AND MEDIASTINUM: The cardiomediastinal silhouette is unremarkable. BONES AND SOFT TISSUES: No acute osseous abnormality. Diffuse osteopenia. UPPER ABDOMEN: No free air under the diaphragm. IMPRESSION: Apparent lucency at the left lung apex, with likely lung markings peripherally, which may represent artifact although pneumothorax may have a similar appearance. Recommend repeat chest radiograph with right lateral decubitus (right side down) view. Previously noted nodular density overlying the left midlung likely corresponds to healing rib fracture. Signed by: Dr. Sj Pierson MD on 03/12/2020 12:02 PM Dictated By: SJ PIERSON MD 01 Transcribed By: GELY on 03/12/201201 COPY TO: MÓNICA HINDS DO PELVIS AP 1-2 VIEWS 2020-03-12 11:54:00 [facility] 1935 Sex: [place] [address] Patient Name: YUE RAMSEY MR #: [id number] : 1935 Age/Sex: 84/F Req #: [id number] [facility] Physician: Ordered by: MÓNICA HINDS DO Report #: [id number] Location: ER Room/Bed: Procedure: [id number] DX/PELVIS AP 1-2 VIEWS Exam Date: 03/12/20 Exam Time: 1047 REPORT STATUS: Signed Exam: AP radiograph of the pelvis-1 view Clinical History: Fall. Comparison: None. Findings/Impression: No evidence of acute fracture or malalignment. Mild degenerative changes of bilateral hips and pubic symphysis. Bilateral hyperdensities, likely soft tissue calcifications overlie the pelvis. Signed by: Dr. Sj Pierson MD on 03/12/2020 11:56 AM Dictated By: SJ PIERSON MD [id number] Transcribed By: GELY on 03/12/20 1151 COPY TO: MÓNICA HINDS DO CT CERVICAL SPINE WO 2020-03-12 11:54:00 [facility] : 1935 Sex: F [facility] [address] [place] [address] Patient Name: YUE RAMSEY MR #: [id number] : 1935 Age/Sex: 84/F Req #: [id number] Adm Physician: Ordered by: MÓNICA HINDS DO Report #: [id number] Location: Room/Bed: Procedure: [id number] CT/CT CERVICAL SPINE WO Exam Date: 03/12/20 Exam Time: 1047 REPORT STATUS: Signed EXAMINATION: CT of the cervical spine HISTORY: Status post fall, trauma, head and neck pain COMPARISON: None available TECHNIQUE: Multidetector helical axial images were obtained without contrast from the foramen magnum to T1. Dose modulation, iterative reconstruction, and/or weight based adjustment of the mA/kV was utilized to reduce the radiation dose to as low as reasonably achievable. FINDINGS: Alignment: Normal alignment and lordosis Soft tissues: Normal Vertebrae: Normal height and density. No acute fracture, infection or neoplasm Degenerative changes: C1-C2: Mild de generative changes without stenosis. C2-C3: Mild facet arthrosis without stenoses. C3-C4: Disc osteophyte complex formation, bilateral uncovertebral and facet arthrosis. Mild spinal canal and moderate foraminal stenoses on the right. Mild left foraminal stenosis. C4-C5: Asymmetric right disc osteophyte complex formation, uncovertebral and facet arthrosis. Moderately severe right foraminal stenosis. Mild canal narrowing. C5-C6: Disc osteophyte complex formation, bilateral uncovertebral and facet arthrosis. Moderate spinal canal and bilateral foraminal stenosis. C6-C7: Distal cephalic observation, bilateral uncovertebral and facet arthrosis. Moderately severe right and mild left foraminal stenosis. C7-T1: Normal IMPRESSION: 1. No acute cervical spine postraumatic abnormalities. 2. Chronic degenerative changes as detailed above. Note: Acute postraumatic spinal cord, vascular or ligamentous injuries cannot adequately be assessed by CT. Signed by: Dr. Peterson Schultz M.D. on 03/12/2020 12:00 PM Dictated By: PETERSON SCHULTZ MD 1200 Transcribed By: GLEY on 03/12/20 1200 COPY TO: MÓNICA HINDS DO CT BRAIN WO 2020-03-12 11:43:00 [facility] : 1935 Sex: F [place] [address] Patient Name: YUE RAMSEY MR #: [id number] : 1935 Age/Sex: 84/F Req #: [id number] Adm Physician: Ordered by: MÓNICA HINDS DO Report #: [id number] Location: Room/Bed: Procedure: [id number] CT/CT BRAIN WO Exam Date: 03/12/20 Exam Time: 1047 REPORT STATUS: Signed EXAMINATION: Head CT HISTORY: Status post fall, head trauma, laceration to the right side of the head, pain. COMPARISON: Brain MRI 06/29/2019 TECHNIQUE: Helical axial images of the head were obtained. Reformatted coronal and sagittal images from the axial data. Dose modulation, iterative reconstruction, and/or weight based adjustment of the mA/kV was utilized to reduce the radiation dose to as low as reasonably achievable. FINDINGS: Parenchyma: 1. Persistent hematocrit O ischemic changes. 2. No mass or hemorrhage. No CT evidence of acute territorial vascular insult. Extra-axial spaces:No abnormal density. No extra-axial fluid collections Brain volume: Normal for age. Ventricles: No hydrocephalus or displacement. Arteries: No density suggestive of thrombus. Dural sinuses: No abnormal density. Foramen magnum: No mass, Chiari malformation, or basilar invagination. Sella: No obvious mass. Paranasal/mastoid sinuses: Imaged portions unremarkable. Skull/Scalp: No lytic or blastic lesions. No fractures. IMPRESSION: 1. No acute intracranial hemorrhage. 2. Mild chronic microvascular ischemic changes, stable compared to MRI of 06/29/2019. Signed by: Dr. Peterson Schultz M.D. on 03/12/2020 11:47 AM Dictated By: PETERSON SCHULTZ MD 1149 Transcribed By: GELY on 03/12/20 1142 COPY TO: MÓNICA HINDS DO CHEST 2 VIEWS 2020-02-14 17:19:00 [facility] [address] [place] [address] Patient Name: YUE RAMSEY MR #: [id number] : 1935 Age/Sex: 84/F Req #: [id number] Adm Physician: Ordered by: ROSA GREER MD Report #: [id number] Location: OR Room/Bed: Procedure: [id number] DX/CHEST 2 VIEWS Exam Date: 02/14/20 Exam [...] Count (test code = 6690-2) 6.51 [facility]10[facility]8 [facility]number/volume)2019-11-07 05:00:00* Test Item Value Reference Range Interpretation Comments Red Blood Count (test code = 789-8) 3.99 3.6-5.1 [facility] [facility] CenterBlood hemoglobin measurement (moles/volume)2019-11-07 05:00:00* Test Item Value Reference Range Interpretation Comments Hemoglobin (test code = 76490-7) 11.9 12.0-16.0 [facility] CenterAutomated blood hematocrit (volume fraction)2019-11-07 05:00:00* Test Item Value Reference Range Interpretation Comments Hematocrit (test code = 4544-3) 36.8 34.2-44.1 [facility] CenterAutomated erythrocyte mean corpuscular unrdjk3684-31-56 05:00:00* Test Item Value Reference Range Interpretation Comments Mean Corpuscular Volume (test code = 787-2) 92.2 81-99 [facility] CenterAutomated erythrocyte mean corpuscular hemoglobin (mass per erythrocyte)2019-11-07 05:00:00* Test Item Value Reference Range Interpretation Comments Mean Corpuscular Hemoglobin (test code = 785-6) 29.8 28-32 [facility] CenterAutomated erythrocyte mean corpuscular hemoglobin concentration measurement (mass/volume)2019-11-07 05:00:00* Test Item Value Reference Range Interpretation Comments Mean Corpuscular Hemoglobin Concent (test code = 786-4) 32.3 31-35 [facility] CenterRDW MhbWt-Dqx6841-91-14 05:00:00* Test Item Value Reference Range Interpretation Comments Red Cell Distribution Width (test code = 21562-1) 14.3 11.7 -14.4 [facility] CenterAutomated blood platelet count (count/volume)2019-11-07 05:00:00* Test Item Value Reference Range Interpretation Comments Platelet Count (test code = 777-3) 201 140-360 [facility] CenterAutomated blood segmented neutrophil count as percentage of total wpyxyqpnke5069-85-50 05:00:00* Test Item Value Reference Range Interpretation Comments Neutrophils (%) (Auto) (test code = 62421-3) 63.9 38.7-80.0 [facility] CenterAutomated blood lymphocyte count as percentage ot total zuklfgmfzj1471-93-24 05:00:00* Test Item Value Reference Range Interpretation Comments Lymphocytes (%) (Auto) (test code = 736-9) 21.8 18.0-39.1 [facility] CenterAutomated blood monocyte count as percentage of total aibjdwblnn1639-29-20 05:00:00* Test Item Value Reference Range Interpretation Comments Monocytes (%) (Auto) (test code = 5905-5) 9.2 4.4-11.3 [facility] CenterAutomated blood eosinophil count as percentage of total apxwgnplxl2890-84-54 05:00:00* Test Item Value Reference Range Interpretation Comments Eosinophils (%) (Auto) (test code = 713-8) 3.7 0.0-6.0 [facility] CenterAutomated blood basophil count as percentage of total ouqbaonpbh3410-99-08 05:00:00* Test Item Value Reference Range Interpretation Comments Basophils (%) (Auto) (test code = 706-2) 1.1 0.0-1.0 [facility] CenterFluoroscopic procedure less than one hour wszkknst6879-01-06 05:00:00* Test Item Value Reference Range Interpretation Comments IM GRANULOCYTES % (test code = IM GRANULOCYTES %) 0.3 0.0- 1.0 [facility] CenterAutomated blood neutrophil count 2019-11-07 05:00:00* Test Item Value Reference Range Interpretation Comments Neutrophils # (Auto) (test code = 751-8) 4.2 2.1-6.9 [facility] CenterBlood lymphocytes count (number/volume) 2019-11-07 05:00:00* Test Item Value Reference Range Interpretation Comments Lymphocytes # (Auto) (test code = 52659-3) 1.4 1.0-3.2 [facility] CenterBlood monocytes automated count (number/volume)2019-11-07 05:00:00* Test Item Value Reference Range Interpretation Comments Monocytes # (Auto) (test code = 742-7) 0.6 0.2-0.8 [facility] CenterAutomated blood eosinophil count 2019-11-07 05:00:00* Test Item Value Reference Range Interpretation Comments Eosinophils # (Auto) (test code = 711-2) 0.2 0.0-0.4 [facility] CenterAutomated blood basophil count (count/volume)2019-11-07 05:00:00* Test Item Value Reference Range Interpretation Comments Basophils # (Auto) (test code = 704-7) 0.1 0.0-0.1 [facility] CenterFluoroscopic procedure less than one hour crysgicf9849-85-17 05:00:00* Test Item Value Reference Range Interpretation Comments Absolute Immature Granulocyte (auto (anjali t code = Absolute Immature Granulocyte (auto) 0.02 0-0.1 [facility] Station[facility]um or plasma sodium measurement (moles/volume)2019-11-07 05:00:00* Test Item Value Reference Range Interpretation Comments Sodium Level (test code = 2951-2) 142 136-145 [facility] Stationerum or plasma potassium measurement (moles/volume)2019-11-07 05:00:00* Test Item Value Reference Range Interpretation Comments Potassium Level (test code = 2823-3) 4.0 3.5-5.1 [facility] Stationerum or plasma chloride measurement (moles/volume)2019-11-07 05:00:00* Test Item Value Reference Range Interpretation Comments Chloride Level (test code = 2075-0) 110 98-107 [facility] Stationerum or plasma carbon dioxide, total measurement (moles/volume)2019-11-07 05:00:00* Test Item Value Reference Range Interpretation Comments Carbon Dioxide Level (test code = 2028-9) 23 22-29 [facility] Stationerum or plasma anion cze5973-19-27 05:00:00* Test Item Value Reference Range Interpretation Comments Anion Gap (test code = 79685-1) 13.0 8-16 [facility] Stationerum or plasma urea nitrogen measurement (mass/volume)2019-11-07 05:00:00* Test Item Value Reference Range Interpretation Comments Blood Urea Nitrogen (test code = 3094-0) 15 7-26 [facility] Stationerum or plasma creatinine measurement (mass/volume)2019-11-07 05:00:00* Test Item Value Reference Range Interpretation Comments Creatinine (test code = 2160-0) 1.20 0.57-1.11 [facility] Stationerum or plasma urea nitrogen/creatinine mass chrjb8677-04-42 05:00:00* Test Item Value Reference Range Interpretation Comments BUN/Creatinine Ratio (test code = 3097-3) 13 6-25 [facility] CenterEstimated glomerular filtration rate (GFR) zwtkboetloaae5051-22-60 05:00:00* Test Item Value Reference Range Interpretation Comments Estimat Glomerular Filtration Rate (test code = 314823933) 43 >60 Ranges were taken from the National Kidney Disease Education Program and the [facility] [employer] literature.Reference ranges:60 or greater: Fwniss62-40 ( for 3 consecutive months): Chronic kidney disease 15 or less: Kidney failurePal[facility] Medical CenterGlucose ciscupgcypp2721-90-89 05:00:00* Test Item Value Reference Range Interpretation Comments Glucose Level (test code = WEV8121) 97 74-118 [facility] Stationerum or plasma calcium measurement (mass/volume)2019-11-07 05:00:00* Test Item Value Reference Range Interpretation Comments Calcium Level (test code = 97599-9) 8.9 8.4-10.2 [facility] Stationerum or plasma total bilirubin measurement (mass/volume)2019-11-07 05:00:00* Test Item Value Reference Range Interpretation Comments Total Bilirubin (test code = 1975-2) 0.6 0.2-1.2 [facility] CenterFluoroscopic procedure less than one hour hyqqzrvt9296-38-10 05:00:00* Test Item Value Reference Range Interpretation Comments Aspartate Amino Transf (AST/SGOT) (test code = Aspartate Amino Transf (AST/SGOT)) 23 5-34 [facility] Stationerum or plasma alanine aminotransferase measurement (enzymatic activity/volume)2019-11-07 05:00:00* Test Item Value Reference Range Interpretation Comments Alanine Aminotransferase (ALT/SGPT) (test code = 1742-6) 13 0-55 [facility] Stationerum or plasma protein measurement (mass/volume)2019-11-07 05:00:00* Test Item Value Reference Range Interpretation Comments Total Protein (test code = 2885-2) 6.4 6.5-8.1 [facility] Stationerum or plasma albumin measurement (mass/volume)2019-11-07 05:00:00* Test Item Value Reference Range Interpretation Comments Albumin (test code = 1751-7) 3.0 3.5-5.0 [facility] CenterPlasma globulin measurement (mass/volume) 2019-11-07 05:00:00* Test Item Value Reference Range Interpretation Comments Globulin (test code = 33016-7) 3.4 2.3-3.5 [facility] Station[facility]um or plasma albumin/globulin mass hqcko4435-49-21 05:00:00* Test Item Value Reference Range Interpretation Comments Albumin/Globulin Ratio (test code = 1759-0) 0.9 0.8-2.0 [facility] Stationerum or plasma alkaline phosphatase measurement (enzymatic activity/volume)2019-11-07 05:00:00* Test Item Value Reference Range Interpretation Comments Alkaline Phosphatase (test code = 6768-6) 68 40-150 [facility] Stationerum or plasma creatine kinase measurement (enzymatic activity/volume)2019-11-07 05:00:00* Test Item Value Reference Range Interpretation Comments Creatine Kinase (test code = 2157-6) 54 29-168 [facility] Stationerum or plasma creatine kinase MB measurement (mass/volume)2019-11-07 05:00:00* Test Item Value Reference Range Interpretation Comments Creatine Kinase MB (test code = 00355-6) 1.10 0-5.0 [facility] CenterTroponin I measurement by highly sensitive enzyme wvteygcvbwc5603-86-33 05:00:00* Test Item Value Reference Range Interpretation Comments Troponin I (test code = 84833-9) 0.012 0-0.300 [facility] IY9516-88-51 10:44:00 [facility] [address] [address] Patient Name: YUE RAMSEY MR #: [id number] : 1935 Age/Sex: 84/F Req #: [id number] Adm Physician: Ordered by: RICKI REMY DO Report #: [id number] Location: ER Room/Bed: Procedure: [id number] CT/CT BRAIN W O Exam Date: 11/06/19 [...] 11/06/19 1056 COPY TO: RICKI REMY DO CHEST SINGLE (PORTABLE)2019-11-06 10:22:00 [address] [address] Patient Name: YUE RAMSEY MR #: [id number] : 1935 Age/Sex: 84/F Req #: [id number] Adm Physician: GAETANO AVILA MD Ordered by: RICKI REMY DO Report #: [id number] Location: [facility]UR[facility] Room/Bed: [facility] Procedure: [id number] DX/CHEST SING LE (PORTABLE) Exam Date: 11/06/19 [...] COPY TO: RICKI REMY DO Urine color czbtjtfhpdgwt7134-43-02 09:40:00* Test Item Value Reference Range Interpretation Comments Urine Color (test code = 5778-6) YELLOW YELLOW [facility] CenterUrine yeqatil4764-73-17 09:40:00* Test Item Value Reference Range Interpretation Comments Urine Clarity (test code = 53316-0) CLEAR CLEAR [facility] Stationpecific gravity of Urine by Test strip 2019-11-06 09:40:00* Test Item Value Reference Range Interpretation Comments Urine Specific Sperry (test code = 5811-5) >=1.030 1.010-1.02 5 [facility] CenterUrine pH measurement by automated test djnlo4190-20-46 09:40:00* Test Item Value Reference Range Interpretation Comments Urine pH (test code = 88239-7) 6 5-7 [facility] CenterUrine leukocyte esterase detection by stkpplup0044-51-81 09:40:00* Test Item Value Reference Range Interpretation Comments Urine Leukocyte Esterase (test code = 5799-2) SMALL NEGATIVE [facility] CenterUrine nitrite qvptqiibf5201-37-19 09:40:00* Test Item Value Reference Range Interpretation Comments Urine Nitrite (test code = 77848-7) NEGATIVE NEGATIVE [facility] CenterUrine protein measurement by test strip (mass/volume)2019-11-06 09:40:00* Test Item Value Reference Range Interpretation Comments Urine Protein (test code = 5804-0) TRACE NEGATIVE [facility] CenterUrine glucose lliuksanu3196-94-80 09:40:00* Test Item Value Reference Range Interpretation Comments Urine Glucose (UA) (test code = 2349-9) NEGATIVE NEGATIVE [facility] CenterUrine ketones detection by automated test ljbua7568-01-43 09:40:00* Test Item Value Reference Range Interpretation Comments Urine Ketones (test code = 81745-1) NEGATIVE NEGATIVE [facility] CenterUrine urobilinogen measurement by test strip (mass/volume)2019-11-06 09:40:00* Test Item Value Reference Range Interpretation Comments Urine Urobilinogen (test code = 81900-1) 0.2 0.2-1 [facility] CenterUrine total bilirubin measurement (mass/volume)2019-11-06 09:40:00* Test Item Value Reference Range Interpretation Comments Urine Bilirubin (test code = 1978-6) NEGATIVE NEGATIVE [facility] CenterUrine erythrocytes enxzklolr8110-46-74 09:40:00* Test Item Value Reference Range Interpretation Comments Urine Blood (test code = 99381-4) TRACE NEGATIVE [facility] CenterAutomated urine sediment leukocyte count by microscopy (number/high power field)2019-11-06 09:40:00* Test Item Value Reference Range Interpretation Comments Urine WBC (test code = 5821-4) 6-10 0-5 [facility] CenterErythrocytes detection in urine sediment by light sharowjfcz4979-51-44 09:40:00* Test Item Value Reference Range Interpretation Comments Urine RBC (test code = 64222-2) 0-5 0-5 [facility] CenterBacteria detection in urine sediment by light mpqviymehy8991-07-41 09:40:00* Test Item Value Reference Range Interpretation Comments Urine Bacteria (test code = 90216-8) FEW NONE [facility] CenterEpithelial cells detection in urine sediment by light xoylbuiqbx3130-81-35 09:40:00* Test Item Value Reference Range Interpretation Comments Urine Epithelial Cells (test code = 76914-9) MODERATE NONE [facility] CenterBNP Ehp-fJns5840-78-13 09:40:00* Test Item Value Reference Range Interpretation Comments B-Type Natriuretic Peptide (test code = 45998-5) 150.3 0-100 [facility] CenterBlood leukocytes automated count (number/volume)2019-10-02 06:30:00* Test Item Value Reference Range Interpretation Comments White Blood Count (test code = 6690-2) 6.30 4.8-10.8 [facility] CenterBlood erythrocytes automated count (number/volume)2019-10-02 06:30:00* Test Item Value Reference Range Interpretation Comments Red Blood Count (test code = 789-8) 3.57 3.6-5.1 [facility] CenterBlood hemoglobin measurement (moles/volume)2019-10-02 06:30:00* Test Item Value Reference Range Interpretation Comments Hemoglobin (test code = 19844-5) 10.6 12.0-16.0 [facility] CenterAutomated blood hematocrit (volume fraction)2019-10-02 06:30:00* Test Item Value Reference Range Interpretation Comments Hematocrit (test code = 4544-3) 32.9 34.2-44.1 [facility] CenterAutomated erythrocyte mean corpuscular wbcaod2590-55-82 06:30:00* Test Item Value Reference Range Interpretation Comments Mean Corpuscular Volume (test code = 787-2) 92.2 81-99 [facility] CenterAutomated erythrocyte mean corpuscular hemoglobin (mass per erythrocyte)2019-10-02 06:30:00* Test Item Value Reference Range Interpretation Comments Mean Corpuscular Hemoglobin (test code = 785-6) 29.7 28-32 [facility] CenterAutomated erythrocyte mean corpuscular hemoglobin concentration measurement (mass/volume)2019-10-02 06:30:00* Test Item Value Reference Range Interpretation Comments Mean Corpuscular Hemoglobin Concent (test code = 786-4) 32.2 31-35 [facility] CenterRDW KchAc-Les2071-77-09 06:30:00* Test Item Value Reference Range Interpretation Comments Red Cell Distribution Width (test code = 77123-6) 15.2 11.7 -14.4 [facility] CenterAutomated blood platelet count (count/volume)2019-10-02 06:30:00* Test Item Value Reference Range Interpretation Comments Platelet Count (test code = 777-3) 182 140-360 [facility] CenterAutomated blood segmented neutrophil count as percentage of total zntjxhsght7234-44-80 06:30:00* Test Item Value Reference Range Interpretation Comments Neutrophils (%) (Auto) (test code = 93202-9) 79.6 38.7-80.0 [facility] CenterAutomated blood lymphocyte count as percentage ot total xwzxwzndgs7868-47-22 06:30:00* Test Item Value Reference Range Interpretation Comments Lymphocytes (%) (Auto) (test code = 736-9) 6.2 18.0-39.1 [facility] CenterAutomated blood monocyte count as percentage of total jipoqwexxo4667-07-71 06:30:00* Test Item Value Reference Range Interpretation Comments Monocytes (%) (Auto) (test code = 5905-5) 9.0 4.4-11.3 [facility] CenterAutomated blood eosinophil count as percentage of total jrekvwkmfr9562-86-22 06:30:00* Test Item Value Reference Range Interpretation Comments Eosinophils (%) (Auto) (test code = 713-8) 4.1 0.0-6.0 [facility] CenterAutomated blood basophil count as percentage of total xoqkvgrohm4733-63-41 06:30:00* Test Item Value Reference Range Interpretation Comments Basophils (%) (Auto) (test code = 706-2) 0.6 0.0-1.0 [facility] CenterFluoroscopic procedure less than one hour dsgrafjv4540-57-66 06:30:00* Test Item Value Reference Range Interpretation Comments IM GRANULOCYTES % (test code = IM GRANULOCYTES %) 0.5 0.0- 1.0 [facility] CenterAutomated blood neutrophil count 2019-10-02 06:30:00* Test Item Value Reference Range Interpretation Comments Neutrophils # (Auto) (test code = 751-8) 5.0 2.1-6.9 [facility] CenterBlood lymphocytes count (number/volume) 2019-10-02 06:30:00* Test Item Value Reference Range Interpretation Comments Lymphocytes # (Auto) (test code = 77590-2) 0.4 1.0-3.2 [facility] CenterBlood monocytes automated count (number/volume)2019-10-02 06:30:00* Test Item Value Reference Range Interpretation Comments Monocytes # (Auto) (test code = 742-7) 0.6 0.2-0.8 [facility] CenterAutomated blood eosinophil count 2019-10-02 06:30:00* Test Item Value Reference Range Interpretation Comments Eosinophils # (Auto) (test code = 711-2) 0.3 0.0-0.4 [facility] CenterAutomated blood basophil count (count/volume)2019-10-02 06:30:00* Test Item Value Reference Range Interpretation Comments Basophils # (Auto) (test code = 704-7) 0.0 0.0-0.1 [facility] CenterFluoroscopic procedure less than one hour ctkcogvj0912-23-21 06:30:00* Test Item Value Reference Range Interpretation Comments Absolute Immature Granulocyte (auto (anjali t code = Absolute Immature Granulocyte (auto) 0.03 0-0.1 [facility] Stationerum or plasma sodium measurement (moles/volume)2019-10-02 06:25:00* Test Item Value Reference Range Interpretation Comments Sodium Level (test code = 2951-2) 141 136-145 [facility] Stationerum or plasma potassium measurement (moles/volume)2019-10-02 06:25:00* Test Item Value Reference Range Interpretation Comments Potassium Level (test code = 2823-3) 3.7 3.5-5.1 [facility] Stationerum or plasma chloride measurement (moles/volume)2019-10-02 06:25:00* Test Item Value Reference Range Interpretation Comments Chloride Level (test code = 2075-0) 112 98-107 [facility] Stationerum or plasma carbon dioxide, total measurement (moles/volume)2019-10-02 06:25:00* Test Item Value Reference Range Interpretation Comments Carbon Dioxide Level (test code = 2028-9) 22 22-29 [facility] Stationerum or plasma anion ifd8382-35-57 06:25:00* Test Item Value Reference Range Interpretation Comments Anion Gap (test code = 30305-1) 10.7 8-16 [facility] Stationerum or plasma urea nitrogen measurement (mass/volume)2019-10-02 06:25:00* Test Item Value Reference Range Interpretation Comments Blood Urea Nitrogen (test code = 3094-0) 17 7-26 [facility] Stationerum or plasma creatinine measurement (mass/volume)2019-10-02 06:25:00* Test Item Value Reference Range Interpretation Comments Creatinine (test code = 2160-0) 1.08 0.57-1.11 [facility] Stationerum or plasma urea nitrogen/creatinine mass yjknf0785-63-59 06:25:00* Test Item Value Reference Range Interpretation Comments BUN/Creatinine Ratio (test code = 3097-3) 16 6-25 [facility] CenterEstimated glomerular filtration rate (GFR) dujymcrvjbqdg6484-64-20 06:25:00* Test Item Value Reference Range Interpretation Comments Estimat Glomerular Filtration Rate (test code = 110401068) 49 >60 Ranges were taken from the National Kidney Disease Education Program and the [facility] literature.Reference ranges:60 or greater: Lamzve58-10 ( for 3 consecutive months): Chronic kidney disease 15 or less: Kidney failurePal[facility] Medical CenterGlucose najuvrvqxiv3125-78-10 06:25:00* Test Item Value Reference Range Interpretation Comments Glucose Level (test code = OLA7623) 106 74-118 [facility] Stationerum or plasma calcium measurement (mass/volume)2019-10-02 06:25:00* Test Item Value Reference Range Interpretation Comments Calcium Level (test code = 37110-6) 8.0 8.4-10.2 [facility] Stationerum or plasma total bilirubin measurement (mass/volume)2019-10-02 06:25:00* Test Item Value Reference Range Interpretation Comments Total Bilirubin (test code = 1975-2) 0.6 0.2-1.2 [facility] CenterFluoroscopic procedure less than one hour ucrvxrnb5946-11-65 06:25:00* Test Item Value Reference Range Interpretation Comments Aspartate Amino Transf (AST/SGOT) (test code = Aspartate Amino Transf (AST/SGOT)) 19 5-34 [facility] Stationerum or plasma alanine aminotransferase measurement (enzymatic activity/volume)2019-10-02 06:25:00* Test Item Value Reference Range Interpretation Comments Alanine Aminotransferase (ALT/SGPT) (test code = 1742-6) 10 0-55 [facility] Stationerum or plasma protein measurement (mass/volume)2019-10-02 06:25:00* Test Item Value Reference Range Interpretation Comments Total Protein (test code = 2885-2) 5.7 6.5-8.1 [facility] Stationerum or plasma albumin measurement (mass/volume)2019-10-02 06:25:00* Test Item Value Reference Range Interpretation Comments Albumin (test code = 1751-7) 2.7 3.5-5.0 [facility] CenterPlasma globulin measurement (mass/volume) 2019-10-02 06:25:00* Test Item Value Reference Range Interpretation Comments Globulin (test code = 18342-7) 3.0 2.3-3.5 [facility] Stationerum or plasma albumin/globulin mass cwnym1343-59-77 06:25:00* Test Item Value Reference Range Interpretation Comments Albumin/Globulin Ratio (test code = 1759-0) 0.9 0.8-2.0 [facility] Stationerum or plasma alkaline phosphatase measurement (enzymatic activity/volume)2019-10-02 06:25:00* Test Item Value Reference Range Interpretation Comments Alkaline Phosphatase (test code = 6768-6) 64 40-150 [facility] Stationerum or plasma creatine kinase measurement (enzymatic activity/volume)2019-10-02 06:25:00* Test Item Value Reference Range Interpretation Comments Creatine Kinase (test code = 2157-6) 79 29-168 [facility] Stationerum or plasma creatine kinase MB measurement (mass/volume)2019-10-02 06:25:00* Test Item Value Reference Range Interpretation Comments Creatine Kinase MB (test code = 81135-8) 0.80 0-5.0 [facility] CenterTroponin I measurement by highly sensitive enzyme jsznlxwfqth1230-87-71 06:25:00* Test Item Value Reference Range Interpretation Comments Troponin I (test code = 91451-7) 0.020 0-0.300 [facility] Stationerum or plasma thyrotropin measurement by detection limit <= 0.005 miu/l (units/volume)2019-10-02 06:25:00* Test Item Value Reference Range Interpretation Comments Thyroid Stimulating Hormone (TSH) (test code = 49765-6) 2.554 0.350-4.940 [facility] Stationerum or plasma thyrotropin measurement by detection limit <= 0.005 miu/l (units/volume)2019-10-02 06:25:00* Test Item Value Reference Range Interpretation Comments Thyroid Stimulating Hormone (TSH) (test code = 46671-0) 2.554 0.350-4.940 [facility] CenterFluoroscopic procedure less than one hour dlbupvmx2707-35-34 18:30:00* Test Item Value Reference Range Interpretation [...] to perform high complexity tests.Specimen sent to [facility] and testing performed by Clinical Pathology [address] [place] [address] [phone] Director: Ramon Quezada M.D.CLIA # [id number] [facility] CenterRIBS UNILAT W/MCX0632-73-91 17:25:00 [facility] [address] [place] [address] Patient Name: YUE RAMSEY MR #: [id number] : 1935 Age/Sex: 84/F Req #: [id number] Adm Physician: Ordered by: RICKI QUICK INVENTORY CHECKER Report #: [id number] Location: ER Room/Bed: Procedure: [id number] DX/RIBS UN ILAT W/CXR Exam Date: 10/01/19 Exam Time: 1630 REPORT STATUS: Signed Left rib multip le views CPT code: 02403 History: Fall, left rib pain Comparison: None. [...] GELY on 10/01/191726 COPY TO: RICKI QUICK INVENTORY CHECKER PELVIS AP 1-2 [id number] 17:23:00 [place] [address] Patient Name: YUE RAMSEY MR #: [id number] : 1935 Age/Sex: 84/F Req #: [id number] Adm Physician: Ordered by: RICKI QUICK INVENTORY CHECKER Report #: [id number] Location: ER Room/Bed: Procedure: [id number] DX/PELVIS AP 1-2 VIEWS Exam Date: 10/01/19 Exam Time: 163 REPORT STATUS: Signed Pelvis C PT code: 66235 Indication: fall [id number] Technique: A.P . view [...] GELY on 10/01/191723 COPY TO: RICKI QUICK INVENTORY CHECKER CT CERVICAL SPINE [id number] 16:54:00 [place] [address] Patient Name: YUE RAMSEY MR #: [id number] : 1935 Age/Sex: 84/F Req #: [id number] Adm Physician: GAETANO AVILA MD Ordered by: RICKI QUICK INVENTORY CHECKER Report #: [id number] Location: [facility] Room/Bed: [place] [address] Procedure: CT/CT CERV ICAL SPINE WO Exam Date: [...] malform ation. 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 Cervica l spine CT: Airway: Patent. [...] GELY on 10/01/191918 COPY TO: RICKI QUICK INVENTORY CHECKER CT BRAIN [id number] 16:54:00 [place] [address] Patient Name: YUE RAMSEY MR #: [id number] : 1935 Age/Sex: 84/F Req #: [id number] Adm Physician: GAETANO AVILA MD Ordered by: RICKI QUICK INVENTORY CHECKER Report #: [id number] Location: [facility]/Bed: [place] [address] Procedure: [id number] CT/CT SHAI N WO Exam Date: 10/01/19 Exam Time: 1630 [...] one malformation. 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 Cervical spine C T: Airway: Patent. [...] (PT) in platelet poor plasma by coagulation zwbeh2520-75-87 15:30:00* Test Item Value Reference Range Interpretation Comments Prothrombin Time (test code = 5902-2) 13.0 11.9-14.5 [facility] CenterINR in Platelet poor plasma by Coagulation xiqqx9483-70-34 15:30:00* Test Item Value Reference Range Interpretation Comments Prothromb Time International Ratio (test code = 6301-6) 0.93 Oral Anticoagulant Therapy INR Values:1. Low Intensity Therapy 1.5 - 2.02 . Moderate Intensity Therapy 2.0 - 3.03. High Intensity Therapy(1) 2.5 - 3. 54. High Intensity Therapy(2) 3.0 - 4.05. Panic Value INR > 5.0 [facility] CenterActivated partial thromboplastin time (aPTT) in platelet poor plasma by coagulation rfkue8421-14-91 15:30:00* Test Item Value Reference Range Interpretation Comments Activated Partial Thromboplast Time (test code = 36900-0) 25.3 23.8-35.5 [facility] CenterUrine color yfyvjoighhahb1313-19-36 15:30:00* Test Item Value Reference Range Interpretation Comments Urine Color (test code = 5778-6) YELLOW YELLOW [facility] CenterUrine mygnsjn0133-59-26 15:30:00* Test Item Value Reference Range Interpretation Comments Urine Clarity (test code = 03117-0) SL CLOUDY CLEAR [facility] Stationpecific gravity of Urine by Test strip 2019-10-01 15:30:00* Test Item Value Reference Range Interpretation Comments Urine Specific Sperry (test code = 5811-5) 1.020 1.010-1.02 5 [facility] CenterUrine pH measurement by automated test yftia7364-10-01 15:30:00* Test Item Value Reference Range Interpretation Comments Urine pH (test code = 75778-0) 5.5 5-7 [facility] CenterUrine leukocyte esterase detection by ckqajabx4185-59-00 15:30:00* Test Item Value Reference Range Interpretation Comments Urine Leukocyte Esterase (test code = 5799-2) SMALL NEGATIVE [facility] CenterUrine nitrite jzdytgnov6802-70-23 15:30:00* Test Item Value Reference Range Interpretation Comments Urine Nitrite (test code = 13805-7) NEGATIVE NEGATIVE [facility] CenterUrine protein measurement by test strip (mass/volume)2019-10-01 15:30:00* Test Item Value Reference Range Interpretation Comments Urine Protein (test code = 5804-0) NEGATIVE NEGATIVE [facility] CenterUrine glucose gikswxkxd7392-44-53 15:30:00* Test Item Value Reference Range Interpretation Comments Urine Glucose (UA) (test code = 2349-9) NEGATIVE NEGATIVE [facility] CenterUrine ketones detection by automated test rywfc2817-25-85 15:30:00* Test Item Value Reference Range Interpretation Comments Urine Ketones (test code = 65421-1) NEGATIVE NEGATIVE [facility] CenterUrine urobilinogen measurement by test strip (mass/volume)2019-10-01 15:30:00* Test Item Value Reference Range Interpretation Comments Urine Urobilinogen (test code = 98699-5) 0.2 0.2-1 [facility] CenterUrine total bilirubin measurement (mass/volume)2019-10-01 15:30:00* Test Item Value Reference Range Interpretation Comments Urine Bilirubin (test code = 1978-6) NEGATIVE NEGATIVE [facility] CenterUrine erythrocytes ydvlpbipp9314-79-71 15:30:00* Test Item Value Reference Range Interpretation Comments Urine Blood (test code = 88064-0) NEGATIVE NEGATIVE [facility] CenterAutomated urine sediment leukocyte count by microscopy (number/high power field)2019-10-01 15:30:00* Test Item Value Reference Range Interpretation Comments Urine WBC (test code = 5821-4) 6-10 0-5 [facility] CenterErythrocytes detection in urine sediment by light umlgvqezdu4256-96-66 15:30:00* Test Item Value Reference Range Interpretation Comments Urine RBC (test code = 72275-5) NONE 0-5 [facility] CenterBacteria detection in urine sediment by light vsmocycojq4117-47-52 15:30:00* Test Item Value Reference Range Interpretation Comments Urine Bacteria (test code = 79213-7) MANY NONE [facility] CenterEpithelial cells detection in urine sediment by light vdpmbwxcqu2305-08-68 15:30:00* Test Item Value Reference Range Interpretation Comments Urine Epithelial Cells (test code = 98775-8) MANY NONE [facility] CenterTransitional cells detection in urine sediment by light jdfqetqtrz7690-48-62 15:30:00* Test Item Value Reference Range Interpretation Comments Urine Transitional Epithelial Cells (test code = 8249-5) MODERATE NONE [facility] CenterProthrombin time (PT) in platelet poor plasma by coagulation kacch9604-20-91 15:30:00* Test Item Value Reference Range Interpretation Comments Prothrombin Time (test code = 5902-2) 13.0 11.9-14.5 [facility] CenterINR in Platelet poor plasma by Coagulation ilwlp2668-18-86 15:30:00* Test Item Value Reference Range Interpretation Comments Prothromb Time International Ratio (test code = 6301-6) 0.93 Oral Anticoagulant Therapy INR Values:1. Low Intensity Therapy 1.5 - 2.02 . Moderate Intensity Therapy 2.0 - 3.03. High Intensity Therapy(1) 2.5 - 3. 54. High Intensity Therapy(2) 3.0 - 4.05. Panic Value INR > 5.0 [facility] CenterActivated partial thromboplastin time (aPTT) in platelet poor plasma by coagulation macyx9735-09-96 15:30:00* Test Item Value Reference Range Interpretation Comments Activated Partial Thromboplast Time (test code = 29579-7) 25.3 23.8-35.5 [facility] CenterTransitional cells detection in urine sediment by light ldxztfxuho4001-74-06 15:30:00* Test Item Value Reference Range Interpretation Comments Urine Transitional Epithelial Cells (test code = 8249-5) MODERATE NONE [facility] CenterThyroid Stimulating Hormone (TSH) 2019-09-01 09:12:00* Test Item Value Reference Range Interpretation Comments Thyroid Stimulating Hormone (TSH) (test code = 66897-2) 1.441 0.350-4.940 [facility] Stationodium Yyxpk2550-09-48 06:04:00* Test Item Value Reference Range Interpretation Comments Sodium Level (test code = 2951-2) 142 136-145 [facility] CenterPotassium Saukw7942-59-56 06:04:00* Test Item Value Reference Range Interpretation Comments Potassium Level (test code = 2823-3) 4.4 3.5-5.1 [facility] CenterChloride Hmxfu2441-66-20 06:04:00* Test Item Value Reference Range Interpretation Comments Chloride Level (test code = 2075-0) 111 98-107 H [facility] CenterCarbon Dioxide Bvhym1361-13-29 06:04:00* Test Item Value Reference Range Interpretation Comments Carbon Dioxide Level (test code = 2028-9) 24 22-29 [facility] CenterAnion Zln8453-49-70 06:04:00* Test Item Value Reference Range Interpretation Comments Anion Gap (test code = 64753-1) 11.4 8-16 [facility] CenterBlood Urea Cgoubgsg2086-11-00 06:04:00* Test Item Value Reference Range Interpretation Comments Blood Urea Nitrogen (test code = 3094-0) 20 7-26 [facility] CenterCreatinine2020-04-08 06:04:00* Test Item Value Reference Range Interpretation Comments Creatinine (test code = 2160-0) 1.43 0.57-1.11 H [facility] CenterBUN/Creatinine Yhflx5709-36-57 06:04:00* Test Item Value Reference Range Interpretation Comments BUN/Creatinine Ratio (test code = 3097-3) 14 6-25 [facility] CenterEstimat Glomerular Filtration Rate 2019-09-01 06:04:00* Test Item Value Reference Range Interpretation Comments Estimat Glomerular Filtration Rate (test code = 675022029) 35 >60 L Ranges were taken from the National Kidney Disease Education Program and the [employer] literature.Reference ranges:60 or greater: Ebliog39-71 ( for 3 consecutive months): Chronic kidney disease 15 or less: Kidney failurePalestine Regional Medical CenterGlucose Swqce5466-87-01 06:04:00* Test Item Value Reference Range Interpretation Comments Glucose Level (test code = RBJ6420) 105 74-118 [facility] CenterCalcium Dwyau5735-38-80 06:04:00* Test Item Value Reference Range Interpretation Comments Calcium Level (test code = 19413-1) 8.4 8.4-10.2 [facility] CenterTotal Dazmrrizs9636-36-52 06:04:00* Test Item Value Reference Range Interpretation Comments Total Bilirubin (test code = 1975-2) 0.6 0.2-1.2 [facility] CenterAspartate Amino Transf (AST/SGOT) 2019-09-01 06:04:00* Test Item Value Reference Range Interpretation Comments Aspartate Amino Transf (AST/SGOT) (test code = Aspartate Amino Transf (AST/SGOT)) 20 5-34 [facility] CenterAlanine Aminotransferase (ALT/SGPT) 2019-09-01 06:04:00* Test Item Value Reference Range Interpretation Comments Alanine Aminotransferase (ALT/SGPT) (test code = 1742-6) 12 0-55 [facility] CenterTotal Owutunc2934-77-19 06:04:00* Test Item Value Reference Range Interpretation Comments Total Protein (test code = 2885-2) 6.4 6.5-8.1 L [facility] CenterAlbumin2020-04-08 06:04:00* Test Item Value Reference Range Interpretation Comments Albumin (test code = 1751-7) 2.9 3.5-5.0 L [facility] CenterGlobulin2020-04-08 06:04:00* Test Item Value Reference Range Interpretation Comments Globulin (test code = 56733-3) 3.5 2.3-3.5 [facility] CenterAlbumin/Globulin Uevsm7495-57-93 06:04:00 * Test Item Value Reference Range Interpretation Comments Albumin/Globulin Ratio (test code = 1759-0) 0.8 0.8-2.0 [facility] CenterAlkaline Drfblxjfpzl5843-00-53 06:04:00* Test Item Value Reference Range Interpretation Comments Alkaline Phosphatase (test code = 6768-6) 82 40-150 [facility] CenterWhite Blood Omsmm8566-77-81 05:57:00* Test Item Value Reference Range Interpretation Comments White Blood Count (test code = 6690-2) 7.30 4.8-10.8 [facility] CenterRed Blood Cinbe6729-44-04 05:57:00* Test Item Value Reference Range Interpretation Comments Red Blood Count (test code = 789-8) 3.75 3.6-5.1 [facility] CenterHemoglobin2020-04-08 05:57:00* Test Item Value Reference Range Interpretation Comments Hemoglobin (test code = 38085-9) 11.0 12.0-16.0 L [facility] CenterHematocrit2020-04-08 05:57:00* Test Item Value Reference Range Interpretation Comments Hematocrit (test code = 4544-3) 34.7 34.2-44.1 [facility] CenterMean Corpuscular Waevdy3891-17-96 05:57:00* Test Item Value Reference Range Interpretation Comments Mean Corpuscular Volume (test code = 787-2) 92.5 81-99 [facility] CenterMean Corpuscular Vmsdgrqafr3113-72-39 05:57:00* Test Item Value Reference Range Interpretation Comments Mean Corpuscular Hemoglobin (test code = 785-6) 29.3 28-32 [facility] CenterMean Corpuscular Hemoglobin Concent 2019-09-01 05:57:00* Test Item Value Reference Range Interpretation Comments Mean Corpuscular Hemoglobin Concent (test code = 786-4) 31.7 31-35 [facility] CenterRed Cell Distribution Xwkml8437-58-91 05:57:00* Test Item Value Reference Range Interpretation Comments Red Cell Distribution Width (test code = 11431-6) 14.9 11.7 -14.4 H [facility] CenterPlatelet Hvnby5885-40-46 05:57:00* Test Item Value Reference Range Interpretation Comments Platelet Count (test code = 777-3) 221 140-360 [facility] CenterNeutrophils (%) (Auto)2019-09-01 05:57:00 * Test Item Value Reference Range Interpretation Comments Neutrophils (%) (Auto) (test code = 47055-2) 76.9 38.7-80.0 [facility] CenterLymphocytes (%) (Auto)2019-09-01 05:57:00 * Test Item Value Reference Range Interpretation Comments Lymphocytes (%) (Auto) (test code = 736-9) 7.9 18.0-39.1 L [facility] CenterMonocytes (%) (Auto)2019-09-01 05:57:00* Test Item Value Reference Range Interpretation Comments Monocytes (%) (Auto) (test code = 5905-5) 8.5 4.4-11.3 [facility] CenterEosinophils (%) (Auto)2019-09-01 05:57:00 * Test Item Value Reference Range Interpretation Comments Eosinophils (%) (Auto) (test code = 713-8) 5.9 0.0-6.0 [facility] CenterBasophils (%) (Auto)2019-09-01 05:57:00* Test Item Value Reference Range Interpretation Comments Basophils (%) (Auto) (test code = 706-2) 0.5 0.0-1.0 [facility] CenterIM GRANULOCYTES %2019-09-01 05:57:00* Test Item Value Reference Range Interpretation Comments IM GRANULOCYTES % (test code = IM GRANULOCYTES %) 0.3 0.0- 1.0 [facility] CenterNeutrophils # (Auto)2019-09-01 05:57:00* Test Item Value Reference Range Interpretation Comments Neutrophils # (Auto) (test code = 751-8) 5.6 2.1-6.9 [facility] CenterLymphocytes # (Auto)2019-09-01 05:57:00* Test Item Value Reference Range Interpretation Comments Lymphocytes # (Auto) (test code = 27016-3) 0.6 1.0-3.2 L [facility] CenterMonocytes # (Auto)2019-09-01 05:57:00* Test Item Value Reference Range Interpretation Comments Monocytes # (Auto) (test code = 742-7) 0.6 0.2-0.8 [facility] CenterEosinophils # (Auto)2019-09-01 05:57:00* Test Item Value Reference Range Interpretation Comments Eosinophils # (Auto) (test code = 711-2) 0.4 0.0-0.4 [facility] CenterBasophils # (Auto)2019-09-01 05:57:00* Test Item Value Reference Range Interpretation Comments Basophils # (Auto) (test code = 704-7) 0.0 0.0-0.1 [facility] CenterAbsolute Immature Granulocyte (auto 2019-09-01 05:57:00* Test Item Value Reference Range Interpretation Comments Absolute Immature Granulocyte (auto (anjali t code = Absolute Immature Granulocyte (auto) 0.02 0-0.1 [facility] CenterCreatine Kinase XX3880-25-81 14:19:00* Test Item Value Reference Range Interpretation Comments Creatine Kinase MB (test code = 61795-7) 1.20 0-5.0 [facility] CenterTroponin B3057-38-77 14:19:00* Test Item Value Reference Range Interpretation Comments Troponin I (test code = 33248-1) 0.012 0-0.300 [facility] CenterCreatine Esozle6350-20-42 14:08:00* Test Item Value Reference Range Interpretation Comments Creatine Kinase (test code = 2157-6) 51 29-168 [facility] CenterCHEST SINGLE (PORTABLE)2019-08-31 14:05:00 [facility] [address] [place] [address] Patient Name: YUE RAMSEY MR #: [id number] : 1935 Age/Sex: 83/F Req #: [id number] Adm Physician: SANDRA CHASE MD Ordered by: KIET BULL MD Report #: [id number] Location: MED/SURG2 Room/Bed: [facility] Procedure: [id number] DX/CHEST [...] on 08/31/19 140 Transcribed By: GELY on 08/31/19 1407 COPY TO: KIET BULL MD Triglycerides Ejemj9805-24-47 03:29:00* Test Item Value Reference Range Interpretation Comments Triglycerides Level (test code = 2571-8) 161 0-149 H [facility] CenterCholesterol Rgdje7457-95-89 03:29:00* Test Item Value Reference Range Interpretation Comments Cholesterol Level (test code = 2093-3) 207 0-199 H Less than 200 mg/dL Low Dbfq632 - 239 mg/dL Borderline Wtdf756 m g/dl and greater High Risk [facility] CenterLDL Trovhofnjms9208-33-63 03:29:00* Test Item Value Reference Range Interpretation Comments LDL Cholesterol (test code = 2089-1) 135 60-130 H [facility] CenterHDL Crjwnngbiqe0772-89-93 03:29:00* Test Item Value Reference Range Interpretation Comments HDL Cholesterol (test code = 2085-9) 40 40-60 [facility] CenterCholesterol/HDL Gxnki8022-43-95 03:29:00 * Test Item Value Reference Range Interpretation Comments Cholesterol/HDL Ratio (test code = 9830-1) 5.2 3.0-3.6 H [facility] Stationerum or plasma triglyceride measurement (mass/volume)2019-08-31 02:43:00* Test Item Value Reference Range Interpretation Comments Triglycerides Level (test code = 2571-8) 161 0-149 [facility] Stationerum or plasma cholesterol measurement (mass/volume)2019-08-31 02:43:00* Test Item Value Reference Range Interpretation Comments Cholesterol Level (test code = 2093-3) 207 0-199 Less than 200 mg/dL Low Ideq068 - 239 mg/dL Borderline Hpsd926 m g/dl and greater High Risk [facility] Stationerum or plasma cholesterol in LDL measurement (mass/volume) 2019-08-31 02:43:00* Test Item Value Reference Range Interpretation Comments LDL Cholesterol (test code = 2089-1) 135 60-130 [facility] Stationerum or plasma cholesterol in HDL measurement (mass/volume)2019-08-31 02:43:00* Test Item Value Reference Range Interpretation Comments HDL Cholesterol (test code = 2085-9) 40 40-60 [facility] Stationerum or plasma total cholesterol/cholesterol in HDL mass cwesp3310-48-13 02:43:00* Test Item Value Reference Range Interpretation Comments Cholesterol/HDL Ratio (test code = 9830-1) 5.2 3.0-3.6 [facility] Stationerum or plasma triglyceride measurement (mass/volume)2019-08-31 02:43:00* Test Item Value Reference Range Interpretation Comments Triglycerides Level (test code = 2571-8) 161 0-149 [facility] Stationerum or plasma cholesterol measurement (mass/volume)2019-08-31 02:43:00* Test Item Value Reference Range Interpretation Comments Cholesterol Level (test code = 2093-3) 207 0-199 Less than 200 mg/dL Low Dsot044 - 239 mg/dL Borderline Pvdr481 m g/dl and greater High Risk [facility] Stationerum or plasma cholesterol in LDL measurement (mass/volume) 2019-08-31 02:43:00* Test Item Value Reference Range Interpretation Comments LDL Cholesterol (test code = 2089-1) 135 60-130 [facility] Stationerum or plasma cholesterol in HDL measurement (mass/volume)2019-08-31 02:43:00* Test Item Value Reference Range Interpretation Comments HDL Cholesterol (test code = 2085-9) 40 40-60 [facility] Stationerum or plasma total cholesterol/cholesterol in HDL mass dbcfr1991-30-59 02:43:00* Test Item Value Reference Range Interpretation Comments Cholesterol/HDL Ratio (test code = 9830-1) 5.2 3.0-3.6 [facility] CenterUrine YRO9161-25-98 20:30:00* Test Item Value Reference Range Interpretation Comments Urine WBC (test code = 5821-4) NONE 0-5 [facility] CenterUrine VGK2679-95-21 20:30:00* Test Item Value Reference Range Interpretation Comments Urine RBC (test code = 86080-5) 0-5 0-5 [facility] CenterUrine Semkcipq6721-43-34 20:30:00* Test Item Value Reference Range Interpretation Comments Urine Bacteria (test code = 22979-3) NONE NONE [facility] CenterUrine Epithelial Rkvud4833-88-23 20:30:00 * Test Item Value Reference Range Interpretation Comments Urine Epithelial Cells (test code = 96254-7) RARE NONE [facility] CenterUrine Widnt5048-19-71 20:17:00* Test Item Value Reference Range Interpretation Comments Urine Color (test code = 5778-6) YELLOW YELLOW [facility] CenterUrine Ycwnsmq2907-03-55 20:17:00* Test Item Value Reference Range Interpretation Comments Urine Clarity (test code = 98825-2) CLEAR CLEAR [facility] CenterUrine Specific Ustmymr7288-85-14 20:17:00 * Test Item Value Reference Range Interpretation Comments Urine Specific [place]ry (test code = 5811-5) 1.025 1.010-1.02 5 [facility] CenterUrine fQ0408-68-83 20:17:00* Test Item Value Reference Range Interpretation Comments Urine pH (test code = 06178-4) 7 5-7 [facility] CenterUrine Leukocyte Rqqwivcm1763-80-16 20:17:00* Test Item Value Reference Range Interpretation Comments Urine Leukocyte Esterase (test code = 5799-2) NEGATIVE NEGATIVE [facility] CenterUrine Bqtlkih9887-42-90 20:17:00* Test Item Value Reference Range Interpretation Comments Urine Nitrite (test code = 00486-3) NEGATIVE NEGATIVE [facility] CenterUrine Utcgzke3371-47-28 20:17:00* Test Item Value Reference Range Interpretation Comments Urine Protein (test code = 5804-0) NEGATIVE NEGATIVE [facility] CenterUrine Glucose (UA)2019-08-30 20:17:00* Test Item Value Reference Range Interpretation Comments Urine Glucose (UA) (test code = 2349-9) NEGATIVE NEGATIVE [facility] CenterUrine Fnuabcp6430-02-46 20:17:00* Test Item Value Reference Range Interpretation Comments Urine Ketones (test code = 31697-4) NEGATIVE NEGATIVE [facility] Wgecsaoipxgy3579-55-20 20:17:00* Test Item Value Reference Range Interpretation Comments Urine Urobilinogen (test code = 23701-3) 0.2 0.2-1 [facility] CenterUrine Uilrwgigw6791-88-13 20:17:00* Test Item Value Reference Range Interpretation Comments Urine Bilirubin (test code = 1978-6) NEGATIVE NEGATIVE [facility] CenterUrine Azrle7770-10-55 20:17:00* Test Item Value Reference Range Interpretation Comments Urine Blood (test code = 18946-7) NEGATIVE NEGATIVE [facility] CenterProthrombin Hyjw0224-61-95 19:34:00* Test Item Value Reference Range Interpretation Comments Prothrombin Time (test code = 5902-2) 12.6 11.9-14.5 [facility] CenterProthromb Time International Ratio 2019-08-30 19:34:00* Test Item Value Reference Range Interpretation Comments Prothromb Time International Ratio (test code = 6301-6) 0.89 Oral Anticoagulant Therapy INR Values:1. Low Intensity Therapy 1.5 - 2.02 . Moderate Intensity Therapy 2.0 - 3.03. High Intensity Therapy(1) 2.5 - 3. 54. High Intensity Therapy(2) 3.0 - 4.05. Panic Value INR > 5.0 [facility] CenterActivated Partial Thromboplast Time 2019-08-30 19:34:00* Test Item Value Reference Range Interpretation Comments Activated Partial Thromboplast Time (test code = 57716-3) 29.0 23.8-35.5 [facility] CenterCHEST SINGLE (PORTABLE)2019-08-30 19:30:00 [facility] [address] [address] Patient Name: YUE RAMSEY MR #: [id number] : 1935 Age/Sex: 83/F Req #: [id number] Adm Physician: Ordered by: MÓNICA HINDS DO Report #: [id number] Location: ER Room/Bed: Procedure: [id number] DX/CHEST SINGLE (PORTABLE) Exam Date: 08/30/19 Exa m Time: 1840 REPORT STATUS: Signed EXAMINATION: CHEST [...] 08/30/191931 COPY TO: MÓNICA HINDS DO Creatine Nukrtl3073-89-36 22:58:00* Test Item Value Reference Range Interpretation Comments Creatine Kinase (test code = 2157-6) 20 29-168 L [facility] CenterCreatine Kinase TL9376-26-45 22:58:00* Test Item Value Reference Range Interpretation Comments Creatine Kinase MB (test code = 74989-1) 0.40 0-5.0 [facility] CenterTroponin L4611-55-74 22:58:00* Test Item Value Reference Range Interpretation Comments Troponin I (test code = QMQ2101) 0.017 0-0.300 [facility] CenterCTA ABD/CKZWXH4754-02-91 21:08:00 [address] [address] Patient Name: YUE RAMSEY MR #: [id number] : 1935 Age/Sex: 83/F Req #: [id number] Adm Physician: Ordered by: HAWA GAGNON MD Report #: [id number] Location: ER Room/Bed: Procedure: [id number] CT/CTA ABD/PELVIS Exam Date: 07/24/19 Exam Time: [...] DISCUSSION: CHEST: Vasculature: Atherosclerotic calcification of the [place] coronary arteries, aortic arch, and great vessel [...] 2127 COPY TO: HAWA GAGNON MD CTA PGNCZ8726-52-35 21:08:[address], [place] [address] Patient Name: YUE RAMSEY MR #: [id number] : 1935 Age/Sex: 83/F [facility] #: [id number] Req #: [id number] [facility] Physician: Ordered by: HAWA GAGNON MD Report #: [id number] Location: ER Room/Bed: Procedure: [id number] CT/CTA CHEST Exam Date: 07/24/19 Exam Time: [...] CHEST: Vasculature: Atherosclerotic calcification of t he [place] coronary arteries, aortic arch, and great vessel [...] COPY TO: HAWA GAGNON MD Urine Epithelial Cdrnm5765-59-86 20:41:00* Test Item Value Reference Range Interpretation Comments Urine Epithelial Cells (test code = 67383-9) FEW NONE [facility] CenterUrine Abtnb0716-97-03 19:52:00* Test Item Value Reference Range Interpretation Comments Urine Color (test code = 5778-6) YELLOW YELLOW [facility] CenterUrine Nanoybe3254-96-20 19:52:00* Test Item Value Reference Range Interpretation Comments Urine Clarity (test code = 40299-6) CLEAR CLEAR [facility] CenterUrine Specific Tyeudzz9981-06-77 19:52:00 * Test Item Value Reference Range Interpretation Comments Urine Specific S[place]ry (test code = 5811-5) 1.015 1.010-1.02 5 [facility] CenterUrine vZ7499-37-62 19:52:00* Test Item Value Reference Range Interpretation Comments Urine pH (test code = 12610-7) 7.5 5-7 [facility] CenterUrine Leukocyte Itlmlsrk2390-38-19 19:52:00* Test Item Value Reference Range Interpretation Comments Urine Leukocyte Esterase (test code = 5799-2) NEGATIVE NEGATIVE [facility] CenterUrine Iikaqdh7237-08-51 19:52:00* Test Item Value Reference Range Interpretation Comments Urine Nitrite (test code = 67809-8) NEGATIVE NEGATIVE [facility] CenterUrine Yntbkjx8705-75-99 19:52:00* Test Item Value Reference Range Interpretation Comments Urine Protein (test code = 5804-0) NEGATIVE NEGATIVE [facility] Glucose (UA)2019-07-24 19:52:00* Test Item Value Reference Range Interpretation Comments Urine Glucose (UA) (test code = 2349-9) NEGATIVE NEGATIVE [facility] Gunkaeh3770-21-45 19:52:00* Test Item Value Reference Range Interpretation Comments Urine Ketones (test code = 04021-8) NEGATIVE NEGATIVE [facility] Dcujnhxftgob1305-36-54 19:52:00* Test Item Value Reference Range Interpretation Comments Urine Urobilinogen (test code = 66683-6) 0.2 0.2-1 [facility] Lixdaszvv5861-81-92 19:52:00* Test Item Value Reference Range Interpretation Comments Urine Bilirubin (test code = 1978-6) NEGATIVE NEGATIVE [facility] Jfqya2477-89-39 19:52:00* Test Item Value Reference Range Interpretation Comments Urine Blood (test code = 62303-6) NEGATIVE NEGATIVE [facility] CenterUrine MOY6366-97-36 19:52:00* Test Item Value Reference Range Interpretation Comments Urine WBC (test code = 5821-4) 0-5 0-5 [facility] HOV6032-01-68 19:52:00* Test Item Value Reference Range Interpretation Comments Urine RBC (test code = 72965-5) NONE 0-5 [facility] CenterUrine Wblkbuwy2605-70-39 19:52:00* Test Item Value Reference Range Interpretation Comments Urine Bacteria (test code = 54671-1) RARE NONE [facility] CenterB-Type Natriuretic Cfgwlzz5232-83-19 18:51:00* Test Item Value Reference Range Interpretation Comments B-Type Natriuretic Peptide (test code = 67250-0) 304.7 0-100 H [facility] CenterB-Type Natriuretic Moltqjw7132-82-71 18:51:00* Test Item Value Reference Range Interpretation Comments B-Type Natriuretic Peptide (test code = 00240-5) 304.7 0-100 H [facility] CenterWhite Blood Btygk3831-38-67 18:49:00* Test Item Value Reference Range Interpretation Comments White Blood Count (test code = 6690-2) 7.87 4.8-10.8 [facility] CenterRed Blood Zunyx0889-44-65 18:49:00* Test Item Value Reference Range Interpretation Comments Red Blood Count (test code = 789-8) 3.84 3.6-5.1 [facility] CenterHemoglobin2020-02-29 18:49:00* Test Item Value Reference Range Interpretation Comments Hemoglobin (test code = 50267-6) 11.4 12.0-16.0 L [facility] CenterHematocrit2020-02-29 18:49:00* Test Item Value Reference Range Interpretation Comments Hematocrit (test code = 4544-3) 35.0 34.2-44.1 [facility] CenterMean Corpuscular Jrqglg0263-62-72 18:49:00* Test Item Value Reference Range Interpretation Comments Mean Corpuscular Volume (test code = 787-2) 91.1 81-99 [facility] CenterMean Corpuscular Leuxbbhmiv9056-24-03 18:49:00* Test Item Value Reference Range Interpretation Comments Mean Corpuscular Hemoglobin (test code = 785-6) 29.7 28-32 [facility] CenterMean Corpuscular Hemoglobin Concent 2019-07-24 18:49:00* Test Item Value Reference Range Interpretation Comments Mean Corpuscular Hemoglobin Concent (test code = 786-4) 32.6 31-35 [facility] CenterRed Cell Distribution Zcdkj0152-36-44 18:49:00* Test Item Value Reference Range Interpretation Comments Red Cell Distribution Width (test code = 45434-4) 13.4 11.7 -14.4 [facility] CenterPlatelet Nsfao2011-10-22 18:49:00* Test Item Value Reference Range Interpretation Comments Platelet Count (test code = 777-3) 260 140-360 [facility] CenterNeutrophils (%) (Auto)2019-07-24 18:49:00 * Test Item Value Reference Range Interpretation Comments Neutrophils (%) (Auto) (test code = 51171-7) 55.4 38.7-80.0 [facility] CenterLymphocytes (%) (Auto)2019-07-24 18:49:00 * Test Item Value Reference Range Interpretation Comments Lymphocytes (%) (Auto) (test code = 736-9) 29.5 18.0-39.1 [facility] CenterMonocytes (%) (Auto)2019-07-24 18:49:00* Test Item Value Reference Range Interpretation Comments Monocytes (%) (Auto) (test code = 5905-5) 9.8 4.4-11.3 [facility] CenterEosinophils (%) (Auto)2019-07-24 18:49:00 * Test Item Value Reference Range Interpretation Comments Eosinophils (%) (Auto) (test code = 713-8) 4.2 0.0-6.0 [facility] CenterBasophils (%) (Auto)2019-07-24 18:49:00* Test Item Value Reference Range Interpretation Comments Basophils (%) (Auto) (test code = 706-2) 0.6 0.0-1.0 [facility] CenterIM GRANULOCYTES %2019-07-24 18:49:00* Test Item Value Reference Range Interpretation Comments IM GRANULOCYTES % (test code = IM GRANULOCYTES %) 0.5 0.0- 1.0 [facility] CenterNeutrophils # (Auto)2019-07-24 18:49:00* Test Item Value Reference Range Interpretation Comments Neutrophils # (Auto) (test code = 751-8) 4.4 2.1-6.9 [facility] CenterLymphocytes # (Auto)2019-07-24 18:49:00* Test Item Value Reference Range Interpretation Comments Lymphocytes # (Auto) (test code = 84701-8) 2.3 1.0-3.2 [facility] CenterMonocytes # (Auto)2019-07-24 18:49:00* Test Item Value Reference Range Interpretation Comments Monocytes # (Auto) (test code = 742-7) 0.8 0.2-0.8 [facility] CenterEosinophils # (Auto)2019-07-24 18:49:00* Test Item Value Reference Range Interpretation Comments Eosinophils # (Auto) (test code = 711-2) 0.3 0.0-0.4 [facility] CenterBasophils # (Auto)2019-07-24 18:49:00* Test Item Value Reference Range Interpretation Comments Basophils # (Auto) (test code = 704-7) 0.1 0.0-0.1 [facility] CenterAbsolute Immature Granulocyte (auto 2019-07-24 18:49:00* Test Item Value Reference Range Interpretation Comments Absolute Immature Granulocyte (auto (anjali t code = Absolute Immature Granulocyte (auto) 0.04 0-0.1 [facility] Stationodium Mnykm5851-97-82 18:48:00* Test Item Value Reference Range Interpretation Comments Sodium Level (test code = 2951-2) 139 136-145 [facility] CenterPotassium Fgopw4702-79-73 18:48:00* Test Item Value Reference Range Interpretation Comments Potassium Level (test code = 2823-3) 3.9 3.5-5.1 [facility] CenterChloride Bpubz5217-56-45 18:48:00* Test Item Value Reference Range Interpretation Comments Chloride Level (test code = 2075-0) 108 98-107 H [facility] CenterCarbon Dioxide Piuvp8215-94-77 18:48:00* Test Item Value Reference Range Interpretation Comments Carbon Dioxide Level (test code = 2028-9) 23 22-29 [facility] CenterAnion Smd1421-52-31 18:48:00* Test Item Value Reference Range Interpretation Comments Anion Gap (test code = 60403-4) 11.9 8-16 [facility] CenterBlood Urea Byhmjrov8793-46-97 18:48:00* Test Item Value Reference Range Interpretation Comments Blood Urea Nitrogen (test code = 3094-0) 14 7-26 [facility] CenterCreatinine2020-02-29 18:48:00* Test Item Value Reference Range Interpretation Comments Creatinine (test code = 2160-0) 1.11 0.57-1.11 [facility] CenterBUN/Creatinine Owciw6751-86-22 18:48:00* Test Item Value Reference Range Interpretation Comments BUN/Creatinine Ratio (test code = 3097-3) 13 6-25 [facility] CenterEstimat Glomerular Filtration Rate 2019-07-24 18:48:00* Test Item Value Reference Range Interpretation Comments Estimat Glomerular Filtration Rate (test code = 176347209) 47 >60 L Ranges were taken from the National Kidney Disease Education Program and the [facility] literature.Reference ranges:60 or greater: Rbmqmj30-55 ( for 3 consecutive months): Chronic kidney disease 15 or less: Kidney failurePalestine Regional Medical CenterGlucose Gfdat0846-35-81 18:48:00* Test Item Value Reference Range Interpretation Comments Glucose Level (test code = DXE5773) 104 74-118 [facility] CenterCalcium Ikjgf7523-73-71 18:48:00* Test Item Value Reference Range Interpretation Comments Calcium Level (test code = 79266-7) 9.5 8.4-10.2 [facility] CenterTotal Apknceecq5852-06-99 18:48:00* Test Item Value Reference Range Interpretation Comments Total Bilirubin (test code = 1975-2) 0.4 0.2-1.2 [facility] CenterAspartate Amino Transf (AST/SGOT) 2019-07-24 18:48:00* Test Item Value Reference Range Interpretation Comments Aspartate Amino Transf (AST/SGOT) (test code = Aspartate Amino Transf (AST/SGOT)) 23 5-34 [facility] CenterAlanine Aminotransferase (ALT/SGPT) 2019-07-24 18:48:00* Test Item Value Reference Range Interpretation Comments Alanine Aminotransferase (ALT/SGPT) (test code = 1742-6) 13 0-55 [facility] CenterTotal Tsconjh1580-05-25 18:48:00* Test Item Value Reference Range Interpretation Comments Total Protein (test code = 2885-2) 6.7 6.5-8.1 [facility] CenterAlbumin2020-02-29 18:48:00* Test Item Value Reference Range Interpretation Comments Albumin (test code = 1751-7) 3.1 3.5-5.0 L [facility] CenterGlobulin2020-02-29 18:48:00* Test Item Value Reference Range Interpretation Comments Globulin (test code = 73774-5) 3.6 2.3-3.5 H [facility] CenterAlbumin/Globulin Nrvxw5668-68-49 18:48:00 * Test Item Value Reference Range Interpretation Comments Albumin/Globulin Ratio (test code = 1759-0) 0.9 0.8-2.0 [facility] CenterAlkaline Mvzrrsazpjf5201-99-12 18:48:00* Test Item Value Reference Range Interpretation Comments Alkaline Phosphatase (test code = 6768-6) 79 40-150 [facility] CenterProthrombin Uqos8530-01-32 18:47:00* Test Item Value Reference Range Interpretation Comments Prothrombin Time (test code = 5902-2) 13.4 11.9-14.5 [facility] CenterProthromb Time International Ratio 2019-07-24 18:47:00* Test Item Value Reference Range Interpretation Comments Prothromb Time International Ratio (test code = 6301-6) 0.96 Oral Anticoagulant Therapy INR Values:1. Low Intensity Therapy 1.5 - 2.02 . Moderate Intensity Therapy 2.0 - 3.03. High Intensity Therapy(1) 2.5 - 3. 54. High Intensity Therapy(2) 3.0 - 4.05. Panic Value INR > 5.0 [facility] CenterActivated Partial Thromboplast Time 2019-07-24 18:47:00* Test Item Value Reference Range Interpretation Comments Activated Partial Thromboplast Time (test code = 09003-4) 25.9 23.8-35.5 [facility] CenterCHEST SINGLE (PORTABLE)2019-07-24 18:28:00 [facility] [address] [place] [address] Patient Name: YUE RAMSEY MR #: [id number] : 1935 Age/Sex: 83/F Req #: [id number] Adm Physician: Ordered by: BHARATHI JOHNSTON NP Report #: [id number] Location: ER Room/Bed: Procedure: [id number] DX/CHEST SINGLE (PORTABLE) Exam Date: 07/24/19 Exam Time: 1819 REPORT STATUS: Signed EXAMINATION: CHEST SINGLE (PORTABLE) COMPARISON: Chest x-ray 07/15/19 INDICATION: Chest pain ERMD ORDER [id number] Y DI SCUSSION: Frontal view of [...] 07/24/19 1 829 COPY TO: BHARATHI JOHNSTON NP BNP Vlq-hCzg3721-56-29 17:05:00* Test Item Value Reference Range Interpretation Comments B-Type Natriuretic Peptide (test code = 14529-3) 304.7 0-[address] [facility] [address]2020-02-20 14:56:00 [facility] [address] [address] Patient Name: YUE RAMSEY MR #: [id number] : 1935 Age/Sex: 83/F Req #: [id number] [facility] Physician: Ordered by: ROSA GREER MD Report #: [id number] Location: OR Room/Bed: Procedure: 42 DX/CHEST 2 VIEWS Exam Date: 07/15/19 Exam Time: 1 430 REPORT STATUS: Signed EXAMIN ATION: CHEST 2 VIEWS INDICATION: PREOP [id number] COMPARISON: None FINDINGS: PA and lateral [...] TO : ROSA GREER MD Vitamin B1 Ozduq5765-65-47 21:22:00* Test Item Value Reference Range Interpretation Comments Vitamin B1 Level (test code = 76654-4) 301.0 66.5-200.0 H Performed at: [address] [id number] Vessel Welder: Lia Martinez MD, Phone: [phone] Regional Medical CenterVitamin B1 Fkyio9772-50-22 21:22:00* Test Item Value Reference Range Interpretation Comments Vitamin B1 Level (test code = 46096-2) 301.0 66.5-200.0 H Performed at: [address] [id number] Vessel Welder: Lia Martinez MD, Phone: [phone] Regional Medical CenterBlood Gvfaysc5688-89-72 08:50:00* Test Item Value Reference Range Interpretation Comments Blood Culture (test code = 76832271) NO GROWTH AFTER 5 DAYS, FINAL REPORT [facility] Tmjulmn0878-44-93 08:50:00* Test Item Value Reference Range Interpretation Comments Blood Culture (test code = 41410692) NO GROWTH AFTER 5 DAYS, FINAL REPORT [facility] Izzewep2809-62-03 08:50:00* Test Item Value Reference Range Interpretation Comments Blood Culture (test code = 20960386) NO GROWTH AFTER 5 DAYS, FINAL REPORT [facility] Stationodium Jrirx5615-85-37 06:37:00* Test Item Value Reference Range Interpretation Comments Sodium Level (test code = 2951-2) 140 136-145 [facility] CenterPotassium Xevrt5534-46-09 06:37:00* Test Item Value Reference Range Interpretation Comments Potassium Level (test code = 2823-3) 3.6 3.5-5.1 [facility] CenterChloride Bnhhq2201-30-48 06:37:00* Test Item Value Reference Range Interpretation Comments Chloride Level (test code = 2075-0) 109 98-107 H [facility] CenterCarbon Dioxide Tyvrd2807-29-37 06:37:00* Test Item Value Reference Range Interpretation Comments Carbon Dioxide Level (test code = 2028-9) 22 22-29 [facility] CenterAnion Gqv7083-05-60 06:37:00* Test Item Value Reference Range Interpretation Comments Anion Gap (test code = 73441-9) 12.6 8-16 [facility] CenterBlood Urea Mesgbuic3025-83-94 06:37:00* Test Item Value Reference Range Interpretation Comments Blood Urea Nitrogen (test code = 3094-0) 17 7-26 [facility] CenterCreatinine2020-02-06 06:37:00* Test Item Value Reference Range Interpretation Comments Creatinine (test code = 2160-0) 1.09 0.57-1.11 [facility] CenterBUN/Creatinine Oidlj9833-00-28 06:37:00* Test Item Value Reference Range Interpretation Comments BUN/Creatinine Ratio (test code = 3097-3) 16 6-25 [facility] CenterEstimat Glomerular Filtration Rate 2019-07-01 06:37:00* Test Item Value Reference Range Interpretation Comments Estimat Glomerular Filtration Rate (test code = 560277698) 48 >60 L Ranges were taken from the National Kidney Disease Education Program and the [facility] [employer] literature.Reference ranges:60 or greater: Spqntw95-21 ( for 3 consecutive months): Chronic kidney disease 15 or less: Kidney failurePal[facility] Regional Medical CenterGlucose Lbopc8017-51-53 06:37:00* Test Item Value Reference Range Interpretation Comments Glucose Level (test code = XJT9992) 97 74-118 [facility] CenterCalcium Ewsin4973-01-98 06:37:00* Test Item Value Reference Range Interpretation Comments Calcium Level (test code = 31466-5) 8.3 8.4-10.2 L [facility] CenterTotal Iicuzfmup1387-36-51 06:37:00* Test Item Value Reference Range Interpretation Comments Total Bilirubin (test code = 1975-2) 0.3 0.2-1.2 [facility] CenterAspartate Amino Transf (AST/SGOT) 2019-07-01 06:37:00* Test Item Value Reference Range Interpretation Comments Aspartate Amino Transf (AST/SGOT) (test code = Aspartate Amino Transf (AST/SGOT)) 17 5-34 [facility] CenterAlanine Aminotransferase (ALT/SGPT) 2019-07-01 06:37:00* Test Item Value Reference Range Interpretation Comments Alanine Aminotransferase (ALT/SGPT) (test code = 1742-6) 10 0-55 [facility] CenterTotal Fchsjsk8008-74-96 06:37:00* Test Item Value Reference Range Interpretation Comments Total Protein (test code = 2885-2) 6.0 6.5-8.1 L [facility] CenterAlbumin2020-02-06 06:37:00* Test Item Value Reference Range Interpretation Comments Albumin (test code = 1751-7) 2.4 3.5-5.0 L [facility] CenterGlobulin2020-02-06 06:37:00* Test Item Value Reference Range Interpretation Comments Globulin (test code = 42516-6) 3.6 2.3-3.5 H [facility] CenterAlbumin/Globulin Btylu9056-38-27 06:37:00 * Test Item Value Reference Range Interpretation Comments Albumin/Globulin Ratio (test code = 1759-0) 0.7 0.8-2.0 L [facility] CenterAlkaline Jcpkzkakbat2025-54-50 06:37:00* Test Item Value Reference Range Interpretation Comments Alkaline Phosphatase (test code = 6768-6) 69 40-150 [facility] Stationerum or plasma thiamine measurement (moles/volume)2019-06-30 12:26:00* Test Item Value Reference Range Interpretation Comments Vitamin B1 Level (test code = 76699-6) 301.0 66.5-200.0 Performed at: [facility] [id number] Vessel Welder: Lia Martinez MD, Phone: [phone] Scott & White [facility] – College Stationerum or plasma thiamine measurement (moles/volume)2019-06-30 12:26:00* Test Item Value Reference Range Interpretation Comments Vitamin B1 Level (test code = 16358-4) 301.0 66.5-200.0 Performed at: [facility] [id number] Vessel Welder: Lia Martinez MD, Phone: [phone] Regional Medical CenterWhite Blood Nxalw4767-29-63 05:53:00* Test Item Value Reference Range Interpretation Comments White Blood Count (test code = 6690-2) 5.45 4.8-10.8 [facility] CenterRed Blood Zyltx5131-19-17 05:53:00* Test Item Value Reference Range Interpretation Comments Red Blood Count (test code = 789-8) 3.66 3.6-5.1 [facility] CenterHemoglobin2020-02-05 05:53:00* Test Item Value Reference Range Interpretation Comments Hemoglobin (test code = 06051-5) 11.0 12.0-16.0 L [facility] CenterHematocrit2020-02-05 05:53:00* Test Item Value Reference Range Interpretation Comments Hematocrit (test code = 4544-3) 32.7 34.2-44.1 L [facility] CenterMean Corpuscular Etclkh4420-05-65 05:53:00* Test Item Value Reference Range Interpretation Comments Mean Corpuscular Volume (test code = 787-2) 89.3 81-99 [facility] CenterMean Corpuscular Tfhojbbkrm1982-15-33 05:53:00* Test Item Value Reference Range Interpretation Comments Mean Corpuscular Hemoglobin (test code = 785-6) 30.1 28-32 [facility] CenterMean Corpuscular Hemoglobin Concent 2019-06-30 05:53:00* Test Item Value Reference Range Interpretation Comments Mean Corpuscular Hemoglobin Concent (test code = 786-4) 33.6 31-35 [facility] CenterRed Cell Distribution Wexeq8192-15-14 05:53:00* Test Item Value Reference Range Interpretation Comments Red Cell Distribution Width (test code = 50897-0) 12.7 11.7 -14.4 [facility] CenterPlatelet Sxktx2952-31-02 05:53:00* Test Item Value Reference Range Interpretation Comments Platelet Count (test code = 777-3) 233 140-360 [facility] CenterNeutrophils (%) (Auto)2019-06-30 05:53:00 * Test Item Value Reference Range Interpretation Comments Neutrophils (%) (Auto) (test code = 70627-4) 48.6 38.7-80.0 [facility] CenterLymphocytes (%) (Auto)2019-06-30 05:53:00 * Test Item Value Reference Range Interpretation Comments Lymphocytes (%) (Auto) (test code = 736-9) 27.9 18.0-39.1 [facility] CenterMonocytes (%) (Auto)2019-06-30 05:53:00* Test Item Value Reference Range Interpretation Comments Monocytes (%) (Auto) (test code = 5905-5) 11.2 4.4-11.3 [facility] CenterEosinophils (%) (Auto)2019-06-30 05:53:00 * Test Item Value Reference Range Interpretation Comments Eosinophils (%) (Auto) (test code = 713-8) 11.0 0.0-6.0 H [facility] CenterBasophils (%) (Auto)2019-06-30 05:53:00* Test Item Value Reference Range Interpretation Comments Basophils (%) (Auto) (test code = 706-2) 0.9 0.0-1.0 [facility] CenterIM GRANULOCYTES %2019-06-30 05:53:00* Test Item Value Reference Range Interpretation Comments IM GRANULOCYTES % (test code = IM GRANULOCYTES %) 0.4 0.0- 1.0 [facility] CenterNeutrophils # (Auto)2019-06-30 05:53:00* Test Item Value Reference Range Interpretation Comments Neutrophils # (Auto) (test code = 751-8) 2.7 2.1-6.9 [facility] CenterLymphocytes # (Auto)2019-06-30 05:53:00* Test Item Value Reference Range Interpretation Comments Lymphocytes # (Auto) (test code = 96086-8) 1.5 1.0-3.2 [facility] CenterMonocytes # (Auto)2019-06-30 05:53:00* Test Item Value Reference Range Interpretation Comments Monocytes # (Auto) (test code = 742-7) 0.6 0.2-0.8 [facility] CenterEosinophils # (Auto)2019-06-30 05:53:00* Test Item Value Reference Range Interpretation Comments Eosinophils # (Auto) (test code = 711-2) 0.6 0.0-0.4 [facility] (Auto)2019-06-30 05:53:00* Test Item Value Reference Range Interpretation Comments Basophils # (Auto) (test code = 704-7) 0.1 0.0-0.1 [facility] CenterAbsolute Immature Granulocyte (auto 2019-06-30 05:53:00* Test Item Value Reference Range Interpretation Comments Absolute Immature Granulocyte (auto (anjali t code = Absolute Immature Granulocyte (auto) 0.02 0-0.1 [facility] CenterCTA WODPM8097-95-40 18:23:00 [facility] [address] [place] [address] Patient Name: YUE RAMSEY MR #: [id number] : 1935 Age/Sex: 83/F Req #: [id number] Adm Physician: SANDRA CHASE MD Ordered by: ILANA PALMRE MD Report #: [id number] Location: [facility] Room/Bed: [facility] Procedure: [id number]/CTA BRAIN Exam Date: 06/29/19 Exam Time: 1701 REPORT STATUS: Signed History:<>, Comparison studies:None Technique: Axial images were obtained from the thoracic inlet. Coronal and sagittal images reconstructed from the axial d caroline. Additional multiplanar coronal, sagittal and oblique MIP images as well a s 3-D-volume rendered images of the carotid arteries and [place] of [place] were reformatted from the axial [...] with prominent posterior communicating arteries (fet al-type ELECTRONIC SYSTEMS SECURITY ASSESSMENT origins). Anatomical variants: Anterior communicating artery: Patient . Pcoms: Bilateral -type ELECTRONIC SYSTEMS SECURITY ASSESSMENT origins. Vertebral arteries: Rig ht is dominant. [...] 06/29/191908 COPY TO: ILANA PALMER MD CTA [id number] 18:23:00 [place] [address] Patient Name: YUE RAMSEY MR #: [id number] : 1935 Age/Sex: 83/F Req #: [id number] Adm Physician: SANDRA CHASE MD Ordered by: ILANA PALMER MD Report #: [id number] Location: [facility] Room/Bed: [facility] Procedure: [id number]/CTA NECK Exam Date: 06/29/19 Exam Time: 1701 REPORT STATUS: Signed History:<>, Comparison studies:None Technique: Axial images were obtained from the thoracic inlet. Coronal and sagittal images reconstructed from the axial d caroline. Additional multiplanar coronal, sagittal and oblique MIP images as well a s 3-D-volume rendered images of the carotid arteries and [place] of [place] were reformatted from the axial [...] with prominent posterior communicating arteries (fet al-type ELECTRONIC SYSTEMS SECURITY ASSESSMENT origins). Anatomical variants: Anterior communicating artery: Patient . Pcoms: Bilateral -type ELECTRONIC SYSTEMS SECURITY ASSESSMENT origins. Vertebral arteries: Rig ht is dominant. [...] COPY TO: ILANA PALMER MD MRI BRAIN [id number] 14:48:00 [facility] [address] [place] [address] Patient Name: YUE RAMSEY MR #: [id number] : 1935 Age/Sex: 83/F Req #: [id number] Adm Physician: SANDRA CHASE MD Ordered by: ILANA PALMER MD Report #: [id number] Location: MED/SURG3 Room/Bed: [facility] Procedure: [id number] 7 MRI/MRI BRAIN WO Exam [...] MD 57 COPY TO: ILANA PALMER MD Whnofbc4278-71-99 19:49:00* Test Item Value Reference Range Interpretation Comments Ammonia (test code = 55556-0) 23 31-[address] [facility] 19:49:00* Test Item Value Reference Range Interpretation Comments Ammonia (test code = 07751-8) 23 31-123 L [facility] CenterAmmonia2020-[facility] 19:49:00* Test Item Value Reference Range Interpretation Comments Ammonia (test code = 62660-3) 23 31-123 L [facility] CenterCT BRAIN RW3326-05-18 19:00:00 [place] [address] Patient Name: YUE RASMEY MR #: [id number] : 1935 Age/Sex: 83/F Req #: [id number] Adm Physician: SANDRA CHASE MD Ordered by: SANDRA CHASE MD Report #: [id number] Location: [facility] Room/Bed: [facility] Procedure: [id number] CT/CT BRAIN WO Exam Date: 06/28/19 Exam [...] 06/28/191903 COPY TO: SANDRA CHASE MD Urine [id number] 18:25:00* Test Item Value Reference Range Interpretation Comments Urine WBC (test code = 5821-4) NONE 0-5 [facility] CenterU[facility] FZC5152-97-44 18:25:00* Test Item Value Reference Range Interpretation Comments Urine RBC (test code = 74300-9) NONE 0-5 [facility] CenterU[facility] Biykjaee3017-29-47 18:25:00* Test Item Value Reference Range Interpretation Comments Urine Bacteria (test code = 40696-0) RARE NONE [facility] CenterUrine Epithelial Ufxtl0455-09-00 18:25:00 * Test Item Value Reference Range Interpretation Comments Urine Epithelial Cells (test code = 46401-1) [facility]W NONE [facility] 18:23:00* Test Item Value Reference Range Interpretation Comments Ammonia (test code = 99732-2) [facility] 18:23:00* Test Item Value Reference Range Interpretation Comments Ammonia (test code = 81170-4) [facility] CenterU[facility] Envfb7634-91-04 18:20:00* Test Item Value Reference Range Interpretation Comments Urine Color (test code = 5778-6) YELLOW YELLOW [facility] CenterU[facility] Dquykvx3560-33-15 18:20:00* Test Item Value Reference Range Interpretation Comments Urine Clarity (test code = 26114-3) SL CLOUDY CLEAR [facility] CenterU[facility] Specific Iqsimje1954-34-01 18:20:00 * Test Item Value Reference Range Interpretation Comments Urine Specific [place] (test code = 5811-5) 1.025 1.010-1.02 5 [facility] CenterU[facility] mW0905-65-62 18:20:00* Test Item Value Reference Range Interpretation Comments Urine pH (test code = 17615-0) 7 5-7 [facility] Center[facility] Leukocyte Pfzeehmv0142-28-27 18:20:00* Test Item Value Reference Range Interpretation Comments Urine Leukocyte Esterase (test code = 5799-2) NEGATIVE NEGATIVE [facility] CenterU[facility] Zkzmlsk6508-70-30 18:20:00* Test Item Value Reference Range Interpretation Comments Urine Nitrite (test code = 81734-8) NEGATIVE NEGATIVE [facility] CenterU[facility] Idcyujr1530-50-85 18:20:00* Test Item Value Reference Range Interpretation Comments Urine Protein (test code = 5804-0) NEGATIVE NEGATIVE [facility] CenterU[facility] Glucose (UA)2019-06-28 18:20:00* Test Item Value Reference Range Interpretation Comments Urine Glucose (UA) (test code = 2349-9) NEGATIVE NEGATIVE [facility] CenterU[facility] Ncyuboa2996-04-54 18:20:00* Test Item Value Reference Range Interpretation Comments Urine Ketones (test code = 64612-5) NEGATIVE NEGATIVE [facility] CenterU[facility] Rstcfylaumom9636-48-68 18:20:00* Test Item Value Reference Range Interpretation Comments Urine Urobilinogen (test code = 47367-1) 0.2 0.2-1 [facility] CenterU[facility] Gcyrxtach0115-41-81 18:20:00* Test Item Value Reference Range Interpretation Comments Urine Bilirubin (test code = 1978-6) NEGATIVE NEGATIVE [facility] CenterU[facility] Whijq6074-51-73 18:20:00* Test Item Value Reference Range Interpretation Comments Urine Blood (test code = 19222-7) NEGATIVE NEGATIVE [facility] CenterTriglycerides Iybpr3948-75-29 06:33:00* Test Item Value Reference Range Interpretation Comments Triglycerides Level (test code = 2571-8) 94 0-149 [facility] CenterCholesterol Kmsmp5102-88-38 06:33:00* Test Item Value Reference Range Interpretation Comments Cholesterol Level (test code = 2093-3) 95 0-199 Less than 200 mg/dL Low Fvnw117 - 239 mg/dL Borderline Sdyr414 m g/dl and greater High Risk [facility] CenterLDL Ruuhkfsvpam7197-78-59 06:33:00* Test Item Value Reference Range Interpretation Comments LDL Cholesterol (test code = 2089-1) 49 60-130 L [facility] CenterHDL Tcisdehywub4636-95-44 06:33:00* Test Item Value Reference Range Interpretation Comments HDL Cholesterol (test code = 2085-9) 27 40-60 L [facility] CenterCholesterol/HDL Glhjz8547-51-38 06:33:00 * Test Item Value Reference Range Interpretation Comments Cholesterol/HDL Ratio (test code = 9830-1) 3.5 3.0-3.6 [facility] CenterTriglycerides Qytil0038-75-46 06:33:00* Test Item Value Reference Range Interpretation Comments Triglycerides Level (test code = 2571-8) 94 0-149 [facility] CenterCholesterol Tpynt7725-48-91 06:33:00* Test Item Value Reference Range Interpretation Comments Cholesterol Level (test code = 2093-3) 95 0-199 Less than 200 mg/dL Low Yoyq083 - 239 mg/dL Borderline Aflc647 m g/dl and greater High Risk [facility] CenterLDL Zghpyvzpbhi8564-64-54 06:33:00* Test Item Value Reference Range Interpretation Comments LDL Cholesterol (test code = 2089-1) 49 60-130 L [facility] CenterHDL Lcgdsiqkuht0393-37-02 06:33:00* Test Item Value Reference Range Interpretation Comments HDL Cholesterol (test code = 2085-9) 27 40-60 L [facility] CenterCholesterol/HDL Yrhlb4258-02-87 06:33:00 * Test Item Value Reference Range Interpretation Comments Cholesterol/HDL Ratio (test code = 9830-1) 3.5 3.0-3.6 [facility] CenterCreatine Kinase YP5652-10-92 03:11:00* Test Item Value Reference Range Interpretation Comments Creatine Kinase MB (test code = 43041-6) 0.30 0-5.0 [facility] CenterTroponin S5886-82-59 03:11:00* Test Item Value Reference Range Interpretation Comments Troponin I (test code = HRS2059) < 0.001 0-0.300 [facility] CenterCreatine Nefqex9815-64-33 03:01:00* Test Item Value Reference Range Interpretation Comments Creatine Kinase (test code = 2157-6) 17 29-168 L [facility] CenterB-Type Natriuretic Jrmqlgw5341-77-18 09:37:00* Test Item Value Reference Range Interpretation Comments B-Type Natriuretic Peptide (test code = 02615-2) 232.4 0-100 [facility]2019-06-27 09:27:00 [facility] [address] [place] [address] Patient Name: YUE RAMSEY MR #: [id number] : 1935 Age/Sex: 83/F Req #: [id number] Adm Physician: Ordered by: CANDIDA ROSE MD Report #: [id number] Location: ER Room/Bed: Procedure: [id number] DX /CHEST SINGLE (PORTABLE) Exam Date: 06/27/19 [...] COPY TO: CANDIDA ROSE MD Lactic Acid Yjtzk2474-71-59 09:07:00* Test Item Value Reference Range Interpretation Comments Lactic Acid Level (test code = Lactic Acid Level) 2.3 0.5- 2.0 HH Results repeated and called to ELIZABETH ORNELAS at 0906/27/19 by Madhu graf Read back and verified.[facility] CenterLactic Acid Rsxxu4938-53-26 09:07:00* Test Item Value Reference Range Interpretation Comments Lactic Acid Level (test code = Lactic Acid Level) 2.3 0.5- 2.0 HH Results repeated [place] [address]/27/19 by Madhu graf Read back and verified.[facility] CenterLactic Acid Bzctj5364-03-74 09:07:00* Test Item Value Reference Range Interpretation Comments Lactic Acid Level (test code = Lactic Acid Level) 2.3 0.5- 2.0 HH Results repeated [place] [address]/27/19 by Madhu graf Read back and verified.[facility] CenterFluoroscopic procedure less than one hour rciwiaph8107-07-76 07:10:00* Test Item Value Reference Range Interpretation Comments Lactic Acid Level (test code = Lactic Acid Level) 2.3 0.5- 2.0 Results repeated and called to ELIZABETH ORNELAS at 09 on 06/27/19 by Madhu graf Read back and verified.[facility] culture 2019-06-27 07:10:00* Test Item Value Reference Range Interpretation Comments Blood Culture (test code = 81312637) NO GROWTH AFTER 5 DAYS, FINAL REPORT [facility] CenterFluoroscopic procedure less than one hour tktehiuh6916-82-21 07:10:00* Test Item Value Reference Range Interpretation Comments Lactic Acid Level (test code = Lactic Acid Level) 2.3 0.5- 2.0 Results repeated and called to ELIZABETH ORNELAS at 0906/27/19 by Madhu graf Read back and verified.[facility] culture 2019-06-27 07:10:00* Test Item Value Reference Range Interpretation Comments Blood Culture (test code = 85590026) NO GROWTH AFTER 5 DAYS, FINAL REPORT [facility] CenterUS RENAL RETROPERITONEAL HDLR9738-33-38 16:48:00 [facility] [address] [place] [address] Patient Name: YUE RAMSEY MR #: [id number] : 1935 Age/Sex: 83/F Req #: [id number] Adm Physician: Ordered by: SHAILA LANDA MD Report #: [id number] Location: US Room/Bed: Procedure: [id number] US/U S RENAL RETROPERITONEAL COMP Exam Date: 06/22/19 Exa m Time: 1621 REPORT STATUS: Signed EXAM: Renal Ultrasound INDICATION: [id number] URINARY T RACT INFECTION COMPARISON: None TECHNIQUE: [...] TO: SHAILA LANDA MD ABDOMEN-1VIEW (KUB)2019-06-22 16:16:00 [place] [address] Patient Name: YUE RAMSEY MR #: [id number] : 1935 Age/Sex: 83/F Req #: [id number] Adm Physician: Ordered by: SHAILA LANDA MD Report #: [id number] Location: Room/Bed: Procedure: [id number] DX/A [facility] Exam Date: 06/22/19 Exam Time: 15 20 [...] MD on 06/22/191616 Transcribed By: GELY on 06/22/191616 COPY TO: SHAILA LANDA MD Urine XZL5130-38-70 07:58:00* Test Item Value Reference Range Interpretation Comments Urine WBC (test code = 5821-4) 0-5 0-5 [facility] CenterU[facility] BSR5718-83-23 07:58:00* Test Item Value Reference Range Interpretation Comments Urine RBC (test code = 34686-2) 0-5 0-5 [facility] CenterU[facility] Beeezqzq2780-60-81 07:58:00* Test Item Value Reference Range Interpretation Comments Urine Bacteria (test code = 06568-3) RARE NONE [facility] CenterUrine Epithelial Jxklx0065-89-52 07:58:00 * Test Item Value Reference Range Interpretation Comments Urine Epithelial Cells (test code = 36397-2) RARE NONE [facility] CenterUrine LPD4106-89-27 07:58:00* Test Item Value Reference Range Interpretation Comments Urine WBC (test code = 5821-4) 0-5 0-5 [facility] CenterU[facility] YTB6385-22-59 07:58:00* Test Item Value Reference Range Interpretation Comments Urine RBC (test code = 79560-0) 0-5 0-5 [facility] CenterUrine Pvndnfgj8716-30-33 07:58:00* Test Item Value Reference Range Interpretation Comments Urine Bacteria (test code = 68542-1) RARE NONE [facility] CenterUrine Epithelial Rxtkc0159-17-49 07:58:00 * Test Item Value Reference Range Interpretation Comments Urine Epithelial Cells (test code = 78671-7) RARE NONE [facility] CenterU[facility] OMG7647-39-56 07:58:00* Test Item Value Reference Range Interpretation Comments Urine WBC (test code = 5821-4) 0-5 0-5 [facility] CenterU[facility] YRY5319-58-38 07:58:00* Test Item Value Reference Range Interpretation Comments Urine RBC (test code = 08557-3) 0-5 0-5 [facility] CenterU[facility] Pibcstif0962-46-82 07:58:00* Test Item Value Reference Range Interpretation Comments Urine Bacteria (test code = 49963-5) RARE NONE [facility] CenterUrine Epithelial Sjkyt8001-97-91 07:58:00 * Test Item Value Reference Range Interpretation Comments Urine Epithelial Cells (test code = 99608-5) RARE NONE [facility] CenterUrine Daelz5017-70-51 07:25:00* Test Item Value Reference Range Interpretation Comments Urine Color (test code = 5778-6) YELLOW YELLOW [facility] CenterUrine Omxujzf8697-50-97 07:25:00* Test Item Value Reference Range Interpretation Comments Urine Clarity (test code = 23033-5) CLEAR CLEAR [facility] Specific Wosdutk6337-66-34 07:25:00 * Test Item Value Reference Range Interpretation Comments Urine Specific [place] (test code = 5811-5) 1.025 1.010-1.02 5 [facility] CenterUrine [id number] 07:25:00* Test Item Value Reference Range Interpretation Comments Urine pH (test code = 06148-6) 6 5-7 [facility] CenterU[facility] Leukocyte Atlhjfss3254-88-72 07:25:00* Test Item Value Reference Range Interpretation Comments Urine Leukocyte Esterase (test code = 5799-2) TRACE NEGATIVE H [facility] CenterUrine Jyhssbi5621-39-18 07:25:00* Test Item Value Reference Range Interpretation Comments Urine Nitrite (test code = 56404-4) NEGATIVE NEGATIVE [facility] CenterU[facility] Jntchfi7575-15-44 07:25:00* Test Item Value Reference Range Interpretation Comments Urine Protein (test code = 5804-0) NEGATIVE NEGATIVE [facility] CenterUrine Glucose (UA)2019-05-12 07:25:00* Test Item Value Reference Range Interpretation Comments Urine Glucose (UA) (test code = 2349-9) NEGATIVE NEGATIVE [facility] CenterU[facility] Bzhsmhs9855-11-01 07:25:00* Test Item Value Reference Range Interpretation Comments Urine Ketones (test code = 97900-4) NEGATIVE NEGATIVE [facility] CenterU[facility] Kmsznjfdcnzm5313-81-82 07:25:00* Test Item Value Reference Range Interpretation Comments Urine Urobilinogen (test code = 06108-7) 0.2 0.2-1 [facility] CenterU[facility] Sfofvgplk6619-46-12 07:25:00* Test Item Value Reference Range Interpretation Comments Urine Bilirubin (test code = 1978-6) NEGATIVE NEGATIVE [facility] CenterU[facility] Onhlq6760-05-87 07:25:00* Test Item Value Reference Range Interpretation Comments Urine Blood (test code = 25857-6) TRACE NEGATIVE [facility] CenterU[facility] Qginl4448-36-25 07:25:00* Test Item Value Reference Range Interpretation Comments Urine Color (test code = 5778-6) YELLOW YELLOW [facility] CenterU[facility] Aklvrww8517-42-19 07:25:00* Test Item Value Reference Range Interpretation Comments Urine Clarity (test code = 02301-1) CLEAR CLEAR [facility] CenterU[facility] Specific Wjpuwog8987-08-41 07:25:00 * Test Item Value Reference Range Interpretation Comments Urine Specific [place] (test code = 5811-5) 1.025 1.010-1.02 5 [facility] CenterU[facility] rL7466-68-92 07:25:00* Test Item Value Reference Range Interpretation Comments Urine pH (test code = 09391-7) 6 5-7 [facility] CenterU[facility] Leukocyte Bjtstatl7748-87-48 07:25:00* Test Item Value Reference Range Interpretation Comments Urine Leukocyte Esterase (test code = 5799-2) TRACE NEGATIVE H [facility] CenterU[facility] Jmregpj2778-81-46 07:25:00* Test Item Value Reference Range Interpretation Comments Urine Nitrite (test code = 79037-0) NEGATIVE NEGATIVE [facility] CenterU[facility] Gqjcnea5210-39-27 07:25:00* Test Item Value Reference Range Interpretation Comments Urine Protein (test code = 5804-0) NEGATIVE NEGATIVE [facility] CenterU[facility] Glucose (UA)2019-05-12 07:25:00* Test Item Value Reference Range Interpretation Comments Urine Glucose (UA) (test code = 2349-9) NEGATIVE NEGATIVE [facility] CenterU[facility] Dolweax4347-30-07 07:25:00* Test Item Value Reference Range Interpretation Comments Urine Ketones (test code = 57581-5) NEGATIVE NEGATIVE [facility] CenterU[facility] Riobuugmuyds3209-36-76 07:25:00* Test Item Value Reference Range Interpretation Comments Urine Urobilinogen (test code = 59623-8) 0.2 0.2-1 [facility] CenterU[facility] Vqjcvnpjw7822-78-84 07:25:00* Test Item Value Reference Range Interpretation Comments Urine Bilirubin (test code = 1978-6) NEGATIVE NEGATIVE [facility] Center[facility] Yfqpp2498-74-32 07:25:00* Test Item Value Reference Range Interpretation Comments Urine Blood (test code = 21774-4) TRACE NEGATIVE [facility] CenterU[facility] Jfcdj5247-29-40 07:25:00* Test Item Value Reference Range Interpretation Comments Urine Color (test code = 5778-6) YELLOW YELLOW [facility] CenterU[facility] Bfuwtii6710-12-40 07:25:00* Test Item Value Reference Range Interpretation Comments Urine Clarity (test code = 62431-1) CLEAR CLEAR [facility] CenterU[facility] Specific Lsmqxnw5551-60-12 07:25:00 * Test Item Value Reference Range Interpretation Comments Urine Specific [place] (test code = 5811-5) 1.025 1.010-1.02 5 [facility] CenterU[facility] oW6984-30-35 07:25:00* Test Item Value Reference Range Interpretation Comments Urine pH (test code = 30692-0) 6 5-7 [facility] CenterU[facility] Leukocyte Gqbuabcr0175-19-32 07:25:00* Test Item Value Reference Range Interpretation Comments Urine Leukocyte Esterase (test code = 5799-2) TRACE NEGATIVE H [facility] CenterU[facility] Mstikqg1615-76-94 07:25:00* Test Item Value Reference Range Interpretation Comments Urine Nitrite (test code = 74743-3) NEGATIVE NEGATIVE [facility] CenterU[facility] Uusytfu2448-68-36 07:25:00* Test Item Value Reference Range Interpretation Comments Urine Protein (test code = 5804-0) NEGATIVE NEGATIVE [facility] CenterU[facility] Glucose (UA)2019-05-12 07:25:00* Test Item Value Reference Range Interpretation Comments Urine Glucose (UA) (test code = 2349-9) NEGATIVE NEGATIVE [facility] CenterU[facility] Xcbaibw8406-24-75 07:25:00* Test Item Value Reference Range Interpretation Comments Urine Ketones (test code = 02785-2) NEGATIVE NEGATIVE [facility] Ehbcdmcwckyq5613-24-80 07:25:00* Test Item Value Reference Range Interpretation Comments Urine Urobilinogen (test code = 26141-9) 0.2 0.2-1 [facility] Jgxzkxarv9660-87-99 07:25:00* Test Item Value Reference Range Interpretation Comments Urine Bilirubin (test code = 1978-6) NEGATIVE NEGATIVE [facility] Wqzsg7594-69-27 07:25:00* Test Item Value Reference Range Interpretation Comments Urine Blood (test code = 77141-1) TRACE NEGATIVE [facility] Biokqrm8862-54-17 13:09:00* Test Item Value Reference Range Interpretation Comments Urine Culture (test code = 630-4) No Result Data Provided [facility] Tjsfamo4817-01-53 13:09:00* Test Item Value Reference Range Interpretation Comments Urine Culture (test code = 630-4) No Result Data Provided [facility] Maiucaa5470-01-55 13:09:00* Test Item Value Reference Range Interpretation Comments Urine Culture (test code = 630-4) No Result Data Provided [facility] Ukleoqc8705-52-52 13:09:00* Test Item Value Reference Range Interpretation Comments Urine Culture (test code = 630-4) No Result Data Provided [facility] Hkrdjli0889-74-96 13:09:00* Test Item Value Reference Range Interpretation Comments Urine Culture (test code = 630-4) No Result Data Provided [facility] Faeotzo0330-15-22 13:09:00* Test Item Value Reference Range Interpretation Comments Urine Culture (test code = 630-4) No Result Data Provided [facility] MYG7812-48-88 10:01:00* Test Item Value Reference Range Interpretation Comments Urine WBC (test code = 5821-4) 6-10 0-5 H [facility] KQR2171-57-39 10:01:00* Test Item Value Reference Range Interpretation Comments Urine RBC (test code = 13995-2) 0-5 0-5 [facility] Rrzbunhc6250-35-13 10:01:00* Test Item Value Reference Range Interpretation Comments Urine Bacteria (test code = 14958-1) FEW NONE [facility] CenterU[facility] Epithelial Afejx3647-93-44 10:01:00 * Test Item Value Reference Range Interpretation Comments Urine Epithelial Cells (test code = 23735-1) MODERATE NONE [facility] CenterU[facility] Vhysz3322-03-42 09:52:00* Test Item Value Reference Range Interpretation Comments Urine Color (test code = 5778-6) YELLOW YELLOW [facility] CenterU[facility] Vesqnko9375-00-92 09:52:00* Test Item Value Reference Range Interpretation Comments Urine Clarity (test code = 15331-4) CLEAR CLEAR [facility] CenterU[facility] Specific Picupht8663-62-77 09:52:00 * Test Item Value Reference Range Interpretation Comments Urine Specific [place] (test code = 5811-5) 1.025 1.010-1.02 5 [facility] CenterU[facility] rE9707-57-70 09:52:00* Test Item Value Reference Range Interpretation Comments Urine pH (test code = 57112-0) 6 5-7 [facility] CenterU[facility] Leukocyte Giuxyngm2154-63-55 09:52:00* Test Item Value Reference Range Interpretation Comments Urine Leukocyte Esterase (test code = 13958-7) SMALL NEGATIV E [facility] CenterU[facility] Fllylsj0218-62-10 09:52:00* Test Item Value Reference Range Interpretation Comments Urine Nitrite (test code = 78613-2) NEGATIVE NEGATIVE [facility] Center[facility] Valmtrs4413-34-63 09:52:00* Test Item Value Reference Range Interpretation Comments Urine Protein (test code = 95202-8) 1+ NEGATIVE H [facility] CenterU[facility] Glucose (UA)2019-04-24 09:52:00* Test Item Value Reference Range Interpretation Comments Urine Glucose (UA) (test code = 14663-3) NEGATIVE NEGATIVE [facility] CenterU[facility] Gzlzlvk6167-94-91 09:52:00* Test Item Value Reference Range Interpretation Comments Urine Ketones (test code = 59119-0) TRACE NEGATIVE H [facility] CenterU[facility] Sbxazzrligog2086-92-29 09:52:00* Test Item Value Reference Range Interpretation Comments Urine Urobilinogen (test code = 92578-3) 0.2 0.2-1 [facility] CenterU[facility] Eghrqyijx8140-23-24 09:52:00* Test Item Value Reference Range Interpretation Comments Urine Bilirubin (test code = 1977-8) NEGATIVE NEGATIVE [facility] Center[facility] Hjdlp0058-24-22 09:52:00* Test Item Value Reference Range Interpretation Comments Urine Blood (test code = 28258-7) NEGATIVE NEGATIVE [facility] CenterBacterial urine ifyelcs7722-38-86 07:33:00* Test Item Value Reference Range Interpretation Comments Urine Culture (test code = 630-4) ENTEROCOCCUS FAECALIS [facility] CenterBacterial urine ichvdty6341-85-12 07:33:00* Test Item Value Reference Range Interpretation Comments Urine Culture (test code = 630-4) ENTEROCOCCUS FAECALIS [facility] CenterCT [facility]BDOMEN/PELVIS L5760-38-92 10:56:00 [facility] [address] [place] [address] Patient Name: YUE RAMSEY MR #: [id number] : 1935 Age/Sex: 83/F Req #: [id number] Adm Physician: Ordered by: GIRISH BROWN MD Report #: [id number] Location: ER Room/Bed: Procedure: [id number] C T/CT ABDOMEN/PELVIS W Exam Date: 04/15/19 Exam Time: 1010 REPORT STATUS: Signed EXAM : CT Abdomen and Pelvis WITH intravenous contrast INDICATION: Abdominal p ain COMPARISON: None. TECHNIQUE: Abdomen and pelvis were scanned utili zing a multidetector helical scanner from the lung [...] 11:04 AM Dictated By: GILLES JIMENEZ MD 1106 Transcribed By: GELY on 04/15/19 1106 COPY TO: GIRISH BROWN MD Sodium Lfkyw1221-73-62 09:55:00* Test Item Value Reference Range Interpretation Comments Sodium Level (test code = 2951-2) 142 136-145 [facility] CenterPotassium Mzpzb6222-81-75 09:55:00* Test Item Value Reference Range Interpretation Comments Potassium Level (test code = 2823-3) 3.7 3.5-5.1 [facility] CenterChloride Umfpq5450-95-67 09:55:00* Test Item Value Reference Range Interpretation Comments Chloride Level (test code = 2075-0) 106 98-107 [facility] CenterCarbon Dioxide Zaate3692-95-77 09:55:00* Test Item Value Reference Range Interpretation Comments Carbon Dioxide Level (test code = 2028-9) 25 22-29 [facility] CenterAnion Igx3012-49-23 09:55:00* Test Item Value Reference Range Interpretation Comments Anion Gap (test code = 12055-5) 14.7 8-16 [facility] CenterBlood Urea Ycykxkot2536-73-50 09:55:00* Test Item Value Reference Range Interpretation Comments Blood Urea Nitrogen (test code = 3094-0) 20 7-26 [facility] CenterCreatinine2019-11-21 09:55:00* Test Item Value Reference Range Interpretation Comments Creatinine (test code = 2160-0) 1.39 0.57-1.11 H [facility] CenterBUN/Creatinine Zjrzy3586-29-16 09:55:00* Test Item Value Reference Range Interpretation Comments BUN/Creatinine Ratio (test code = 3097-3) 14 6-25 [facility] CenterEstimat Glomerular Filtration Rate 2019-04-15 09:55:00* Test Item Value Reference Range Interpretation Comments Estimat Glomerular Filtration Rate (test code = 501294822) 36 >60 L Ranges were taken from the National Kidney Disease Education Program and the [facility] literature.Reference ranges:60 or greater: Edardg89-09 ( for 3 consecutive months): Chronic kidney disease 15 or less: Kidney failurePal[facility] Regional Medical CenterGlucose Gvgpi0730-70-55 09:55:00* Test Item Value Reference Range Interpretation Comments Glucose Level (test code = ERM4725) 106 74-118 [facility] CenterCalcium Yzdjn3308-51-39 09:55:00* Test Item Value Reference Range Interpretation Comments Calcium Level (test code = 88643-4) 10.0 8.4-10.2 [facility] CenterMagnesium Limdk0662-36-09 09:55:00* Test Item Value Reference Range Interpretation Comments Magnesium Level (test code = 68129-0) 2.1 1.3-2.1 [facility] CenterTotal Afqjoogba8688-65-10 09:55:00* Test Item Value Reference Range Interpretation Comments Total Bilirubin (test code = 1975-2) 0.6 0.2-1.2 [facility] CenterAspartate Amino Transf (AST/SGOT) 2019-04-15 09:55:00* Test Item Value Reference Range Interpretation Comments Aspartate Amino Transf (AST/SGOT) (test code = Aspartate Amino Transf (AST/SGOT)) 33 5-34 [facility] CenterAlanine Aminotransferase (ALT/SGPT) 2019-04-15 09:55:00* Test Item Value Reference Range Interpretation Comments Alanine Aminotransferase (ALT/SGPT) (test code = 1742-6) 27 0-55 [facility] CenterTotal Cwichnl2537-50-73 09:55:00* Test Item Value Reference Range Interpretation Comments Total Protein (test code = 2885-2) 7.2 6.5-8.1 [facility] CenterAlbumin2019-11-21 09:55:00* Test Item Value Reference Range Interpretation Comments Albumin (test code = 1751-7) 3.7 3.5-5.0 [facility] CenterGlobulin2019-11-21 09:55:00* Test Item Value Reference Range Interpretation Comments Globulin (test code = 27826-2) 3.5 2.3-3.5 [facility] CenterAlbumin/Globulin Djaxv4602-69-87 09:55:00 * Test Item Value Reference Range Interpretation Comments Albumin/Globulin Ratio (test code = 1759-0) 1.1 0.8-2.0 [facility] CenterAlkaline Kzmbmlwcqwz3974-87-49 09:55:00* Test Item Value Reference Range Interpretation Comments Alkaline Phosphatase (test code = 6768-6) 87 40-150 [facility] CenterB-Type Natriuretic Ujikfrv5453-32-47 09:55:00* Test Item Value Reference Range Interpretation Comments B-Type Natriuretic Peptide (test code = 68849-0) 136.8 0-100 H [facility] CenterCreatine Jsqamg6155-10-01 09:55:00* Test Item Value Reference Range Interpretation Comments Creatine Kinase (test code = 2157-6) 76 29-168 [facility] CenterCreatine Kinase VA1534-49-57 09:55:00* Test Item Value Reference Range Interpretation Comments Creatine Kinase MB (test code = 85496-6) 3.60 0-5.0 [facility] CenterTroponin V2711-18-07 09:55:00* Test Item Value Reference Range Interpretation Comments Troponin I (test code = AIU6830) 0.036 0-0.300 [facility] CenterLipase2019-11-21 09:55:00* Test Item Value Reference Range Interpretation Comments Lipase (test code = 3040-3) 75 8-78 [facility] Gqxzs9288-27-42 09:55:00* Test Item Value Reference Range Interpretation Comments Sodium Level (test code = 2951-2) 142 136-145 [facility] CenterPotassium Zuulo5800-63-22 09:55:00* Test Item Value Reference Range Interpretation Comments Potassium Level (test code = 2823-3) 3.7 3.5-5.1 [facility] CenterChloride Ovzsl7964-48-93 09:55:00* Test Item Value Reference Range Interpretation Comments Chloride Level (test code = 2075-0) 106 98-107 [facility] CenterCarbon Dioxide Katst0212-38-34 09:55:00* Test Item Value Reference Range Interpretation Comments Carbon Dioxide Level (test code = 2028-9) 25 22-29 [facility] CenterAnion Wxd7609-37-44 09:55:00* Test Item Value Reference Range Interpretation Comments Anion Gap (test code = 88455-3) 14.7 8-16 [facility] CenterBlood Urea Lxwrualc1450-52-99 09:55:00* Test Item Value Reference Range Interpretation Comments Blood Urea Nitrogen (test code = 3094-0) 20 7-26 [facility] CenterCreatinine2019-11-21 09:55:00* Test Item Value Reference Range Interpretation Comments Creatinine (test code = 2160-0) 1.39 0.57-1.11 H [facility] CenterBUN/Creatinine Vbizq8095-15-13 09:55:00* Test Item Value Reference Range Interpretation Comments BUN/Creatinine Ratio (test code = 3097-3) 14 6- [facility] CenterEstimat Glomerular Filtration Rate 2019-04-15 09:55:00* Test Item Value Reference Range Interpretation Comments Estimat Glomerular Filtration Rate (test code = 801902301) 36 >60 L Ranges were taken from the National Kidney Disease Education Program and the [facility] literature.Reference ranges:60 or greater: Aorshb07-09 ( for 3 consecutive months): Chronic kidney disease 15 or less: Kidney failurePal[facility] Regional Medical CenterGlucose Mwdlh0866-52-86 09:55:00* Test Item Value Reference Range Interpretation Comments Glucose Level (test code = MXI2038) 106 74-118 [facility] CenterCalcium Vhjwl5140-61-23 09:55:00* Test Item Value Reference Range Interpretation Comments Calcium Level (test code = 37527-0) 10.0 8.4-10.2 [facility] CenterMagnesium Gyyfs0291-32-17 09:55:00* Test Item Value Reference Range Interpretation Comments Magnesium Level (test code = 43463-8) 2.1 1.3-2.1 [facility] CenterTotal Uvkxuasck2051-83-93 09:55:00* Test Item Value Reference Range Interpretation Comments Total Bilirubin (test code = 1975-2) 0.6 0.2-1.2 [facility] CenterAspartate Amino Transf (AST/SGOT) 2019-04-15 09:55:00* Test Item Value Reference Range Interpretation Comments Aspartate Amino Transf (AST/SGOT) (test code = Aspartate Amino Transf (AST/SGOT)) 33 5-34 [facility] CenterAlanine Aminotransferase (ALT/SGPT) 2019-04-15 09:55:00* Test Item Value Reference Range Interpretation Comments Alanine Aminotransferase (ALT/SGPT) (test code = 1742-6) 27 0-55 [facility] CenterTotal Gnzrgpm9502-46-21 09:55:00* Test Item Value Reference Range Interpretation Comments Total Protein (test code = 2885-2) 7.2 6.5-8.1 [facility] CenterAlbumin2019-11-21 09:55:00* Test Item Value Reference Range Interpretation Comments Albumin (test code = 1751-7) 3.7 3.5-5.0 [facility] CenterGlobulin2019-11-21 09:55:00* Test Item Value Reference Range Interpretation Comments Globulin (test code = 29316-2) 3.5 2.3-3.5 [facility] CenterAlbumin/Globulin Qppbx8030-02-21 09:55:00 * Test Item Value Reference Range Interpretation Comments Albumin/Globulin Ratio (test code = 1759-0) 1.1 0.8-2.0 [facility] CenterAlkaline Lsuthfwvqsc5942-53-11 09:55:00* Test Item Value Reference Range Interpretation Comments Alkaline Phosphatase (test code = 6768-6) 87 40-150 [facility] CenterB-Type Natriuretic Upuvgud6219-36-33 09:55:00* Test Item Value Reference Range Interpretation Comments B-Type Natriuretic Peptide (test code = 50143-9) 136.8 0-100 H [facility] CenterCreatine Zjceef4715-23-70 09:55:00* Test Item Value Reference Range Interpretation Comments Creatine Kinase (test code = 2157-6) 76 29-168 [facility] CenterCreatine Kinase BN6405-82-81 09:55:00* Test Item Value Reference Range Interpretation Comments Creatine Kinase MB (test code = 01453-8) 3.60 0-5.0 [facility] CenterTroponin L7748-98-79 09:55:00* Test Item Value Reference Range Interpretation Comments Troponin I (test code = UFX0655) 0.036 0-0.300 [facility] CenterLipase2019-11-21 09:55:00* Test Item Value Reference Range Interpretation Comments Lipase (test code = 3040-3) 75 8-78 [facility] Stationodium Tkhed9631-39-88 09:55:00* Test Item Value Reference Range Interpretation Comments Sodium Level (test code = 2951-2) 142 136-145 [facility] CenterPotassium Tkutf0643-49-23 09:55:00* Test Item Value Reference Range Interpretation Comments Potassium Level (test code = 2823-3) 3.7 3.5-5.1 [facility] CenterChloride Cshyo3240-51-04 09:55:00* Test Item Value Reference Range Interpretation Comments Chloride Level (test code = 2075-0) 106 98-107 [facility] CenterCarbon Dioxide Blmzd8602-97-80 09:55:00* Test Item Value Reference Range Interpretation Comments Carbon Dioxide Level (test code = 2028-9) 25 22-29 [facility] CenterAnion Vjl2390-37-34 09:55:00* Test Item Value Reference Range Interpretation Comments Anion Gap (test code = 27696-4) 14.7 8-16 [facility] CenterBlood Urea Ikvgtnfy5928-21-66 09:55:00* Test Item Value Reference Range Interpretation Comments Blood Urea Nitrogen (test code = 3094-0) 20 7-26 [facility] CenterCreatinine2019-11-21 09:55:00* Test Item Value Reference Range Interpretation Comments Creatinine (test code = 2160-0) 1.39 0.57-1.11 H [facility] CenterBUN/Creatinine Alzne3675-17-73 09:55:00* Test Item Value Reference Range Interpretation Comments BUN/Creatinine Ratio (test code = 3097-3) 14 6-25 [facility] CenterEstimat Glomerular Filtration Rate 2019-04-15 09:55:00* Test Item Value Reference Range Interpretation Comments Estimat Glomerular Filtration Rate (test code = 580071727) 36 >60 L Ranges were taken from the National Kidney Disease Education Program and the [facility] Kidney Foundation literature.Reference ranges:60 or greater: Xwvajd13-36 ( for 3 consecutive months): Chronic kidney disease 15 or less: Kidney failurePal[facility] Medical CenterGlucose Ngkhg7210-54-71 09:55:00* Test Item Value Reference Range Interpretation Comments Glucose Level (test code = LFA7332) 106 74-118 [facility] CenterCalcium Yorwf5953-87-58 09:55:00* Test Item Value Reference Range Interpretation Comments Calcium Level (test code = 32294-1) 10.0 8.4-10.2 [facility] CenterMagnesium Aatfp3863-01-05 09:55:00* Test Item Value Reference Range Interpretation Comments Magnesium Level (test code = 45172-8) 2.1 1.3-2.1 [facility] CenterTotal Jdvqexwaf6859-05-10 09:55:00* Test Item Value Reference Range Interpretation Comments Total Bilirubin (test code = 1975-2) 0.6 0.2-1.2 [facility] CenterAspartate Amino Transf (AST/SGOT) 2019-04-15 09:55:00* Test Item Value Reference Range Interpretation Comments Aspartate Amino Transf (AST/SGOT) (test code = Aspartate Amino Transf (AST/SGOT)) 33 5-34 [facility] CenterAlanine Aminotransferase (ALT/SGPT) 2019-04-15 09:55:00* Test Item Value Reference Range Interpretation Comments Alanine Aminotransferase (ALT/SGPT) (test code = 1742-6) 27 0-55 [facility] CenterTotal Xwdydyu7841-33-89 09:55:00* Test Item Value Reference Range Interpretation Comments Total Protein (test code = 2885-2) 7.2 6.5-8.1 [facility] CenterAlbumin2019-11-21 09:55:00* Test Item Value Reference Range Interpretation Comments Albumin (test code = 1751-7) 3.7 3.5-5.0 [facility] CenterGlobulin2019-11-21 09:55:00* Test Item Value Reference Range Interpretation Comments Globulin (test code = 31196-3) 3.5 2.3-3.5 [facility] CenterAlbumin/Globulin Tcrvd5380-00-51 09:55:00 * Test Item Value Reference Range Interpretation Comments Albumin/Globulin Ratio (test code = 1759-0) 1.1 0.8-2.0 [facility] CenterAlkaline Ipilvmdmlgz9315-88-41 09:55:00* Test Item Value Reference Range Interpretation Comments Alkaline Phosphatase (test code = 6768-6) 87 40-150 [facility] CenterB-Type Natriuretic Utregbm0525-64-70 09:55:00* Test Item Value Reference Range Interpretation Comments B-Type Natriuretic Peptide (test code = 51337-5) 136.8 0-100 H [facility] CenterCreatine Abdwrv9235-15-26 09:55:00* Test Item Value Reference Range Interpretation Comments Creatine Kinase (test code = 2157-6) 76 29-168 [facility] CenterCreatine Kinase LK7759-55-35 09:55:00* Test Item Value Reference Range Interpretation Comments Creatine Kinase MB (test code = 23052-2) 3.60 0-5.0 [facility] CenterTroponin Z1239-20-09 09:55:00* Test Item Value Reference Range Interpretation Comments Troponin I (test code = WPP7369) 0.036 0-0.300 [facility] CenterLipase2019-11-21 09:55:00* Test Item Value Reference Range Interpretation Comments Lipase (test code = 3040-3) 75 8-78 [facility] Station[facility] Hofrl1576-70-84 09:55:00* Test Item Value Reference Range Interpretation Comments Sodium Level (test code = 2951-2) 142 136-145 [facility] CenterPotassium Bixvr6788-15-28 09:55:00* Test Item Value Reference Range Interpretation Comments Potassium Level (test code = 2823-3) 3.7 3.5-5.1 [facility] CenterChloride Kpreb6861-61-71 09:55:00* Test Item Value Reference Range Interpretation Comments Chloride Level (test code = 2075-0) 106 98-107 [facility] CenterCarbon Dioxide Ueiji8927-84-37 09:55:00* Test Item Value Reference Range Interpretation Comments Carbon Dioxide Level (test code = 2028-9) 25 22-29 [facility] CenterAnion Nqy7999-79-00 09:55:00* Test Item Value Reference Range Interpretation Comments Anion Gap (test code = 11209-4) 14.7 8-16 [facility] CenterBlood Urea Ycimzxao6168-72-87 09:55:00* Test Item Value Reference Range Interpretation Comments Blood Urea Nitrogen (test code = 3094-0) 20 7-26 [facility] CenterCreatinine2019-11-21 09:55:00* Test Item Value Reference Range Interpretation Comments Creatinine (test code = 2160-0) 1.39 0.57-1.11 H [facility] CenterBUN/Creatinine Wnfud9112-82-33 09:55:00* Test Item Value Reference Range Interpretation Comments BUN/Creatinine Ratio (test code = 3097-3) 14 6- [facility] CenterEstimat Glomerular Filtration Rate 2019-04-15 09:55:00* Test Item Value Reference Range Interpretation Comments Estimat Glomerular Filtration Rate (test code = 917082533) 36 >60 L Ranges were taken from the National Kidney Disease Education Program and the [facility] literature.Reference ranges:60 or greater: Txvacn12-04 ( for 3 consecutive months): Chronic kidney disease 15 or less: Kidney failurePal[facility] Medical CenterGlucose Tdagj4398-93-10 09:55:00* Test Item Value Reference Range Interpretation Comments Glucose Level (test code = WDS3032) 106 74-118 [facility] CenterCalcium Xoeup1962-73-98 09:55:00* Test Item Value Reference Range Interpretation Comments Calcium Level (test code = 38684-4) 10.0 8.4-10.2 [facility] CenterMagnesium Bvvxh0529-26-65 09:55:00* Test Item Value Reference Range Interpretation Comments Magnesium Level (test code = 99333-3) 2.1 1.3-2.1 [facility] CenterTotal Amfoxqrjc5317-95-82 09:55:00* Test Item Value Reference Range Interpretation Comments Total Bilirubin (test code = 1975-2) 0.6 0.2-1.2 [facility] CenterAspartate Amino Transf (AST/SGOT) 2019-04-15 09:55:00* Test Item Value Reference Range Interpretation Comments Aspartate Amino Transf (AST/SGOT) (test code = Aspartate Amino Transf (AST/SGOT)) 33 5-34 [facility] CenterAlanine Aminotransferase (ALT/SGPT) 2019-04-15 09:55:00* Test Item Value Reference Range Interpretation Comments Alanine Aminotransferase (ALT/SGPT) (test code = 1742-6) 27 0-55 [facility] CenterTotal Wcsyajd9839-91-82 09:55:00* Test Item Value Reference Range Interpretation Comments Total Protein (test code = 2885-2) 7.2 6.5-8.1 [facility] CenterAlbumin2019-11-21 09:55:00* Test Item Value Reference Range Interpretation Comments Albumin (test code = 1751-7) 3.7 3.5-5.0 [facility] CenterGlobulin2019-11-21 09:55:00* Test Item Value Reference Range Interpretation Comments Globulin (test code = 90007-7) 3.5 2.3-3.5 [facility] CenterAlbumin/Globulin Lnxlg6144-26-18 09:55:00 * Test Item Value Reference Range Interpretation Comments Albumin/Globulin Ratio (test code = 1759-0) 1.1 0.8-2.0 [facility] CenterAlkaline Jpfuyywooqq4803-79-85 09:55:00* Test Item Value Reference Range Interpretation Comments Alkaline Phosphatase (test code = 6768-6) 87 40-150 [facility] CenterB-Type Natriuretic Hthfhji8191-57-00 09:55:00* Test Item Value Reference Range Interpretation Comments B-Type Natriuretic Peptide (test code = 90710-6) 136.8 0-100 H [facility] CenterCreatine Pkvnnb1339-04-01 09:55:00* Test Item Value Reference Range Interpretation Comments Creatine Kinase (test code = 2157-6) 76 29-168 [facility] CenterCreatine Kinase WR9946-59-68 09:55:00* Test Item Value Reference Range Interpretation Comments Creatine Kinase MB (test code = 65497-0) 3.60 0-5.0 [facility] CenterTroponin V2009-01-40 09:55:00* Test Item Value Reference Range Interpretation Comments Troponin I (test code = NDB8540) 0.036 0-0.300 [facility] CenterLipase2019-11-21 09:55:00* Test Item Value Reference Range Interpretation Comments Lipase (test code = 3040-3) 75 8-78 [facility] Station[facility] Cdvtp1075-20-09 09:55:00* Test Item Value Reference Range Interpretation Comments Sodium Level (test code = 2951-2) 142 136-145 [facility] CenterPotassium Lancl8775-64-01 09:55:00* Test Item Value Reference Range Interpretation Comments Potassium Level (test code = 2823-3) 3.7 3.5-5.1 [facility] CenterChloride Tcaji7888-04-39 09:55:00* Test Item Value Reference Range Interpretation Comments Chloride Level (test code = 2075-0) 106 98-107 [facility] CenterCarbon Dioxide Bxydz9074-95-57 09:55:00* Test Item Value Reference Range Interpretation Comments Carbon Dioxide Level (test code = 2028-9) 25 22-29 [facility] CenterAnion Vck9825-64-91 09:55:00* Test Item Value Reference Range Interpretation Comments Anion Gap (test code = 26036-4) 14.7 8-16 [facility] CenterBlood Urea Magkokmz6171-92-90 09:55:00* Test Item Value Reference Range Interpretation Comments Blood Urea Nitrogen (test code = 3094-0) 20 7-26 [facility] CenterCreatinine2019-11-21 09:55:00* Test Item Value Reference Range Interpretation Comments Creatinine (test code = 2160-0) 1.39 0.57-1.11 H [facility] CenterBUN/Creatinine Denmr8396-57-94 09:55:00* Test Item Value Reference Range Interpretation Comments BUN/Creatinine Ratio (test code = 3097-3) 14 6-25 [facility] CenterEstimat Glomerular Filtration Rate 2019-04-15 09:55:00* Test Item Value Reference Range Interpretation Comments Estimat Glomerular Filtration Rate (test code = 197693168) 36 >60 L Ranges were taken from the National Kidney Disease Education Program and the [facility] literature.Reference ranges:60 or greater: Quowqs86-69 ( for 3 consecutive months): Chronic kidney disease 15 or less: Kidney failurePalestine Regional Medical CenterGlucose Dqlqn0275-34-48 09:55:00* Test Item Value Reference Range Interpretation Comments Glucose Level (test code = SSK7144) 106 74-118 [facility] CenterCalcium Gzhbl5615-46-64 09:55:00* Test Item Value Reference Range Interpretation Comments Calcium Level (test code = 57005-2) 10.0 8.4-10.2 [facility] CenterMagnesium Kjwqf5464-91-59 09:55:00* Test Item Value Reference Range Interpretation Comments Magnesium Level (test code = 26978-1) 2.1 1.3-2.1 [facility] CenterTotal Zcsnefmgi0067-82-54 09:55:00* Test Item Value Reference Range Interpretation Comments Total Bilirubin (test code = 1975-2) 0.6 0.2-1.2 [facility] CenterAspartate Amino Transf (AST/SGOT) 2019-04-15 09:55:00* Test Item Value Reference Range Interpretation Comments Aspartate Amino Transf (AST/SGOT) (test code = Aspartate Amino Transf (AST/SGOT)) 33 5-34 [facility] CenterAlanine Aminotransferase (ALT/SGPT) 2019-04-15 09:55:00* Test Item Value Reference Range Interpretation Comments Alanine Aminotransferase (ALT/SGPT) (test code = 1742-6) 27 0-55 [facility] CenterTotal Hlclbav7516-03-73 09:55:00* Test Item Value Reference Range Interpretation Comments Total Protein (test code = 2885-2) 7.2 6.5-8.1 [facility] CenterAlbumin2019-11-[facility] 09:55:00* Test Item Value Reference Range Interpretation Comments Albumin (test code = 1751-7) 3.7 3.5-5.0 [facility] CenterGlobulin2019-11-21 09:55:00* Test Item Value Reference Range Interpretation Comments Globulin (test code = 82615-0) 3.5 2.3-3.5 [facility] CenterAlbumin/Globulin Rfuxr6957-37-27 09:55:00 * Test Item Value Reference Range Interpretation Comments Albumin/Globulin Ratio (test code = 1759-0) 1.1 0.8-2.0 [facility] CenterAlkaline Wvknfdmqwwk4629-31-56 09:55:00* Test Item Value Reference Range Interpretation Comments Alkaline Phosphatase (test code = 6768-6) 87 40-150 [facility] CenterB-Type Natriuretic Exdlotl2167-46-40 09:55:00* Test Item Value Reference Range Interpretation Comments B-Type Natriuretic Peptide (test code = 12421-8) 136.8 0-100 H [facility] CenterCreatine Zfetan9889-48-94 09:55:00* Test Item Value Reference Range Interpretation Comments Creatine Kinase (test code = 2157-6) 76 29-168 [facility] CenterCreatine Kinase HA4298-72-10 09:55:00* Test Item Value Reference Range Interpretation Comments Creatine Kinase MB (test code = 89467-0) 3.60 0-5.0 [facility] CenterTroponin O0922-56-42 09:55:00* Test Item Value Reference Range Interpretation Comments Troponin I (test code = XZL2995) 0.036 0-0.300 [facility] CenterLipase2019-11-21 09:55:00* Test Item Value Reference Range Interpretation Comments Lipase (test code = 3040-3) 75 8-[address] [facility]2019-11-21 09:55:00* Test Item Value Reference Range Interpretation Comments Magnesium Level (test code = 77968-2) 2.1 1.3-2.1 [facility]2019-11-21 09:55:00* Test Item Value Reference Range Interpretation Comments Lipase (test code = 3040-3) 75 878 [facility]2019-11-21 09:55:00* Test Item Value Reference Range Interpretation Comments Magnesium Level (test code = 53896-5) 2.1 1.3-2.1 [facility]2019-11-21 09:55:00* Test Item Value Reference Range Interpretation Comments Lipase (test code = 3040-3) 75 [facility]2019-11-21 09:55:00* Test Item Value Reference Range Interpretation Comments Magnesium Level (test code = 07830-9) 2.1 1.3-2.1 [facility]2019-11-21 09:55:00* Test Item Value Reference Range Interpretation Comments Lipase (test code = 3040-3) [address] [place], [place] [address]CHES SINGLE (PORTABLE)2019-04-15 09:32:00 [place] [address] Patient Name: YUE RAMSEY MR #: [id number] : 1935 Age/Sex: 83/F Req #: [id number] Adm Physician: Ordered by: GIRISH BROWN MD Report #: [id number] Location: ER Room/Bed: Procedure: [id number] D X/CHEST SINGLE (PORTABLE) Exam Date: 04/15/19 [...] 04/15 COPY TO: GIRISH BROWN MD Urine TQD0950-98-58 09:29:00 * Test Item Value Reference Range Interpretation Comments Urine WBC (test code = 5821-4) 6-10 0-5 H [facility] CenterUrine RAG9753-12-64 09:29:00* Test Item Value Reference Range Interpretation Comments Urine RBC (test code = 47677-4) 0-5 0-5 [facility] CenterU[facility] Ekhftoyk6120-41-93 09:29:00* Test Item Value Reference Range Interpretation Comments Urine Bacteria (test code = 03716-6) MANY NONE H [facility] CenterUrine Epithelial Dnqao6301-98-49 09:29:00 * Test Item Value Reference Range Interpretation Comments Urine Epithelial Cells (test code = 84960-1) MODERATE NONE [facility] CenterUrine Amorphous Nnmthvqu0771-00-73 09:29:00* Test Item Value Reference Range Interpretation Comments Urine Amorphous Sediment (test code = 8246-1) FEW FEW [facility] CenterUrine Hyaline Jbdbf2385-26-50 09:29:00* Test Item Value Reference Range Interpretation Comments Urine Hyaline Casts (test code = 68645-5) 0-1 0-1 [facility] CenterUrine Coarse Granular Thhyw6394-79-48 09:29:00* Test Item Value Reference Range Interpretation Comments Urine Coarse Granular Casts (test code = 88338-4) 1-5 >0 H [facility] CenterUrine Yhzpb8797-89-03 09:29:00* Test Item Value Reference Range Interpretation Comments Urine Mucus (test code = 8247-9) MODERATE RARE H [facility] Amorphous Tidlxgnm4750-67-00 09:29:00* Test Item Value Reference Range Interpretation Comments Urine Amorphous Sediment (test code = 8246-1) FEW FEW [facility] CenterU[facility] Hyaline Yusgx5406-17-63 09:29:00* Test Item Value Reference Range Interpretation Comments Urine Hyaline Casts (test code = 46680-3) 0-1 0-1 [facility] Coarse Granular Idzkg2992-10-68 09:29:00* Test Item Value Reference Range Interpretation Comments Urine Coarse Granular Casts (test code = 78850-5) 1-5 >0 H [facility] CenterUrine Rafny7174-94-34 09:29:00* Test Item Value Reference Range Interpretation Comments Urine Mucus (test code = 8247-9) MODERATE RARE H [facility] CenterUrine Amorphous Umrmettv3543-50-21 09:29:00* Test Item Value Reference Range Interpretation Comments Urine Amorphous Sediment (test code = 8246-1) FEW FEW [facility] CenterUrine Hyaline Hubfi7343-96-52 09:29:00* Test Item Value Reference Range Interpretation Comments Urine Hyaline Casts (test code = 63663-0) 0-1 0-1 [facility] CenterUrine Coarse Granular Ybxvo3068-39-70 09:29:00* Test Item Value Reference Range Interpretation Comments Urine Coarse Granular Casts (test code = 47517-2) 1-5 >0 H [facility] CenterUrine Zmlbf1941-17-01 09:29:00* Test Item Value Reference Range Interpretation Comments Urine Mucus (test code = 8247-9) MODERATE RARE H [facility] Amorphous Jrumveic9393-18-76 09:29:00* Test Item Value Reference Range Interpretation Comments Urine Amorphous Sediment (test code = 8246-1) FEW FEW [facility] CenterUrine Hyaline Tdidk7344-15-54 09:29:00* Test Item Value Reference Range Interpretation Comments Urine Hyaline Casts (test code = 36288-9) 0-1 0-1 [facility] CenterUrine Coarse Granular Nadff2753-90-37 09:29:00* Test Item Value Reference Range Interpretation Comments Urine Coarse Granular Casts (test code = 42260-8) 1-5 >0 H [facility] CenterUrine Lrthv5650-06-24 09:29:00* Test Item Value Reference Range Interpretation Comments Urine Mucus (test code = 8247-9) MODERATE RARE H [facility] Amorphous Ftzheivd5154-15-55 09:29:00* Test Item Value Reference Range Interpretation Comments Urine Amorphous Sediment (test code = 8246-1) FEW FEW [facility] CenterUrine Hyaline Wkstl7554-34-78 09:29:00* Test Item Value Reference Range Interpretation Comments Urine Hyaline Casts (test code = 50261-8) 0-1 0-1 [facility] CenterUrine Coarse Granular Epfga1697-44-13 09:29:00* Test Item Value Reference Range Interpretation Comments Urine Coarse Granular Casts (test code = 37328-4) 1-5 >0 H [facility] CenterUrine Azfkd5294-36-40 09:29:00* Test Item Value Reference Range Interpretation Comments Urine Mucus (test code = 8247-9) MODERATE RARE H [facility] CenterUrine Amorphous Nhllhypt7780-94-52 09:29:00* Test Item Value Reference Range Interpretation Comments Urine Amorphous Sediment (test code = 8246-1) FEW FEW [facility] CenterUrine Hyaline Rdgqc4772-28-65 09:29:00* Test Item Value Reference Range Interpretation Comments Urine Hyaline Casts (test code = 45925-8) 0-1 0-1 [facility] CenterUrine Coarse Granular Duldi9836-37-95 09:29:00* Test Item Value Reference Range Interpretation Comments Urine Coarse Granular Casts (test code = 44078-2) 1-5 >0 H [facility] CenterUrine Dyzor1831-55-25 09:29:00* Test Item Value Reference Range Interpretation Comments Urine Mucus (test code = 8247-9) MODERATE RARE H [facility] CenterUrine Amorphous Hhpqwqkn0464-24-81 09:29:00* Test Item Value Reference Range Interpretation Comments Urine Amorphous Sediment (test code = 8246-1) FEW FEW [facility] CenterUrine Hyaline Hnrfp2140-61-03 09:29:00* Test Item Value Reference Range Interpretation Comments Urine Hyaline Casts (test code = 67631-3) 0-1 0-1 [facility] CenterUrine Coarse Granular Psxtp4468-38-71 09:29:00* Test Item Value Reference Range Interpretation Comments Urine Coarse Granular Casts (test code = 22725-5) 1-5 >0 H [facility] CenterUrine Clsyc5906-22-81 09:29:00* Test Item Value Reference Range Interpretation Comments Urine Mucus (test code = 8247-9) MODERATE RARE H [facility] CenterUrine Amorphous Kfggqxvp3258-69-11 09:29:00* Test Item Value Reference Range Interpretation Comments Urine Amorphous Sediment (test code = 8246-1) FEW FEW [facility] CenterUrine Hyaline Utfbv5097-99-47 09:29:00* Test Item Value Reference Range Interpretation Comments Urine Hyaline Casts (test code = 81571-5) 0-1 0-1 [facility] CenterUrine Coarse Granular Whtcc1130-14-34 09:29:00* Test Item Value Reference Range Interpretation Comments Urine Coarse Granular Casts (test code = 34244-5) 1-5 >0 H [facility] CenterUrine Lfpzg7087-72-15 09:29:00* Test Item Value Reference Range Interpretation Comments Urine Mucus (test code = 8247-9) MODERATE RARE H [facility] CenterProthrombin Dtpd4857-40-62 09:25:00* Test Item Value Reference Range Interpretation Comments Prothrombin Time (test code = 5902-2) 12.7 11.9-14.5 [facility] CenterProthromb Time International Ratio 2019-04-15 09:25:00* Test Item Value Reference Range Interpretation Comments Prothromb Time International Ratio (test code = 6301-6) 0.91 Oral Anticoagulant Therapy INR Values:1. Low Intensity Therapy 1.5 - 2.02 . Moderate Intensity Therapy 2.0 - 3.03. High Intensity Therapy(1) 2.5 - 3. 54. High Intensity Therapy(2) 3.0 - 4.05. Panic Value INR > 5.0 [facility] CenterActivated Partial Thromboplast Time 2019-04-15 09:25:00* Test Item Value Reference Range Interpretation Comments Activated Partial Thromboplast Time (test code = 35025-6) 31.4 23.8-35.5 [facility] CenterProthrombin Quij3891-32-71 09:25:00* Test Item Value Reference Range Interpretation Comments Prothrombin Time (test code = 5902-2) 12.7 11.9-14.5 [facility] CenterProthromb Time International Ratio 2019-04-15 09:25:00* Test Item Value Reference Range Interpretation Comments Prothromb Time International Ratio (test code = 6301-6) 0.91 Oral Anticoagulant Therapy INR Values:1. Low Intensity Therapy 1.5 - 2.02 . Moderate Intensity Therapy 2.0 - 3.03. High Intensity Therapy(1) 2.5 - 3. 54. High Intensity Therapy(2) 3.0 - 4.05. Panic Value INR > 5.0 [facility] CenterActivated Partial Thromboplast Time 2019-04-15 09:25:00* Test Item Value Reference Range Interpretation Comments Activated Partial Thromboplast Time (test code = 28369-3) 31.4 23.8-35.5 [facility] CenterProthrombin Escs4542-49-15 09:25:00* Test Item Value Reference Range Interpretation Comments Prothrombin Time (test code = 5902-2) 12.7 11.9-14.5 [facility] CenterProthromb Time International Ratio 2019-04-15 09:25:00* Test Item Value Reference Range Interpretation Comments Prothromb Time International Ratio (test code = 6301-6) 0.91 Oral Anticoagulant Therapy INR Values:1. Low Intensity Therapy 1.5 - 2.02 . Moderate Intensity Therapy 2.0 - 3.03. High Intensity Therapy(1) 2.5 - 3. 54. High Intensity Therapy(2) 3.0 - 4.05. Panic Value INR > 5.0 [facility] CenterActivated Partial Thromboplast Time 2019-04-15 09:25:00* Test Item Value Reference Range Interpretation Comments Activated Partial Thromboplast Time (test code = 50666-2) 31.4 23.8-35.5 [facility] CenterProthrombin Mtxk1553-61-80 09:25:00* Test Item Value Reference Range Interpretation Comments Prothrombin Time (test code = 5902-2) 12.7 11.9-14.5 [facility] CenterProthromb Time International Ratio 2019-04-15 09:25:00* Test Item Value Reference Range Interpretation Comments Prothromb Time International Ratio (test code = 6301-6) 0.91 Oral Anticoagulant Therapy INR Values:1. Low Intensity Therapy 1.5 - 2.02 . Moderate Intensity Therapy 2.0 - 3.03. High Intensity Therapy(1) 2.5 - 3. 54. High Intensity Therapy(2) 3.0 - 4.05. Panic Value INR > 5.0 [facility] CenterActivated Partial Thromboplast Time 2019-04-15 09:25:00* Test Item Value Reference Range Interpretation Comments Activated Partial Thromboplast Time (test code = 42850-8) 31.4 23.8-35.5 [facility] CenterProthrombin Xmzz4151-74-98 09:25:00* Test Item Value Reference Range Interpretation Comments Prothrombin Time (test code = 5902-2) 12.7 11.9-14.5 [facility] CenterProthromb Time International Ratio 2019-04-15 09:25:00* Test Item Value Reference Range Interpretation Comments Prothromb Time International Ratio (test code = 6301-6) 0.91 Oral Anticoagulant Therapy INR Values:1. Low Intensity Therapy 1.5 - 2.02 . Moderate Intensity Therapy 2.0 - 3.03. High Intensity Therapy(1) 2.5 - 3. 54. High Intensity Therapy(2) 3.0 - 4.05. Panic Value INR > 5.0 [facility] CenterActivated Partial Thromboplast Time 2019-04-15 09:25:00* Test Item Value Reference Range Interpretation Comments Activated Partial Thromboplast Time (test code = 81773-7) 31.4 23.8-35.5 [facility] CenterProthrombin Fobd0568-82-54 09:25:00* Test Item Value Reference Range Interpretation Comments Prothrombin Time (test code = 5902-2) 12.7 11.9-14.5 [facility] CenterProthromb Time International Ratio 2019-04-15 09:25:00* Test Item Value Reference Range Interpretation Comments Prothromb Time International Ratio (test code = 6301-6) 0.91 Oral Anticoagulant Therapy INR Values:1. Low Intensity Therapy 1.5 - 2.02 . Moderate Intensity Therapy 2.0 - 3.03. High Intensity Therapy(1) 2.5 - 3. 54. High Intensity Therapy(2) 3.0 - 4.05. Panic Value INR > 5.0 [facility] CenterActivated Partial Thromboplast Time 2019-04-15 09:25:00* Test Item Value Reference Range Interpretation Comments Activated Partial Thromboplast Time (test code = 76360-9) 31.4 23.8-35.5 [facility] CenterUrine Vehog6248-45-24 09:19:00* Test Item Value Reference Range Interpretation Comments Urine Color (test code = 5778-6) YELLOW YELLOW [facility] CenterUrine Rbpmfrh8120-19-57 09:19:00* Test Item Value Reference Range Interpretation Comments Urine Clarity (test code = 51810-0) SL CLOUDY CLEAR [facility] CenterUrine Specific Lgsljim9144-55-62 09:19:00 * Test Item Value Reference Range Interpretation Comments Urine Specific Sperry (test code = 5811-5) 1.010 1.010-1.02 5 [facility] CenterUrine jB7311-58-52 09:19:00* Test Item Value Reference Range Interpretation Comments Urine pH (test code = 34493-7) 8.5 5-7 [facility] CenterUrine Leukocyte Gonkwbys7630-34-14 09:19:00* Test Item Value Reference Range Interpretation Comments Urine Leukocyte Esterase (test code = 81444-3) NEGATIVE NEGATIV E [facility] CenterUrine Mpgteon4258-86-15 09:19:00* Test Item Value Reference Range Interpretation Comments Urine Nitrite (test code = 15381-1) NEGATIVE NEGATIVE [facility] CenterUrine Cxknzjg5587-70-49 09:19:00* Test Item Value Reference Range Interpretation Comments Urine Protein (test code = 40424-0) NEGATIVE NEGATIVE [facility] CenterUrine Glucose (UA)2019-04-15 09:19:00* Test Item Value Reference Range Interpretation Comments Urine Glucose (UA) (test code = 75192-9) NEGATIVE NEGATIVE [facility] CenterUrine Elpfebk9522-48-26 09:19:00* Test Item Value Reference Range Interpretation Comments Urine Ketones (test code = 40042-5) NEGATIVE NEGATIVE [facility] CenterUrine Hcrowedvkzxo3942-31-04 09:19:00* Test Item Value Reference Range Interpretation Comments Urine Urobilinogen (test code = 06785-6) 0.2 0.2-1 [facility] CenterUrine Rpsewjshe1517-78-22 09:19:00* Test Item Value Reference Range Interpretation Comments Urine Bilirubin (test code = 1977-8) NEGATIVE NEGATIVE [facility] CenterUrine Zwzwy3819-91-95 09:19:00* Test Item Value Reference Range Interpretation Comments Urine Blood (test code = 39470-5) NEGATIVE NEGATIVE [facility] CenterWhite Blood Izzaa2108-47-96 09:18:00* Test Item Value Reference Range Interpretation Comments White Blood Count (test code = 6690-2) 8.56 4.8-10.8 [facility] CenterRed Blood Ahyno8619-17-36 09:18:00* Test Item Value Reference Range Interpretation Comments Red Blood Count (test code = 789-8) 4.49 3.6-5.1 [facility] CenterHemoglobin2019-11-21 09:18:00* Test Item Value Reference Range Interpretation Comments Hemoglobin (test code = 29031-8) 13.8 12.0-16.0 [facility] CenterHematocrit2019-11-21 09:18:00* Test Item Value Reference Range Interpretation Comments Hematocrit (test code = 4544-3) 41.1 34.2-44.1 [facility] CenterMean Corpuscular Gfmzmm3525-45-59 09:18:00* Test Item Value Reference Range Interpretation Comments Mean Corpuscular Volume (test code = 787-2) 91.5 81-99 [facility] CenterMean Corpuscular Odzxfqrkbi1665-85-59 09:18:00* Test Item Value Reference Range Interpretation Comments Mean Corpuscular Hemoglobin (test code = 785-6) 30.7 28-32 [facility] CenterMean Corpuscular Hemoglobin Concent 2019-04-15 09:18:00* Test Item Value Reference Range Interpretation Comments Mean Corpuscular Hemoglobin Concent (test code = 786-4) 33.6 31-35 [facility] CenterRed Cell Distribution Jqjhh2128-62-62 09:18:00* Test Item Value Reference Range Interpretation Comments Red Cell Distribution Width (test code = 96448-0) 13.1 11.7 -14.4 [facility] CenterPlatelet Sjyet9137-42-17 09:18:00* Test Item Value Reference Range Interpretation Comments Platelet Count (test code = 777-3) 248 140-360 [facility] CenterNeutrophils (%) (Auto)2019-04-15 09:18:00 * Test Item Value Reference Range Interpretation Comments Neutrophils (%) (Auto) (test code = 74611-5) 65.8 38.7-80.0 [facility] CenterLymphocytes (%) (Auto)2019-04-15 09:18:00 * Test Item Value Reference Range Interpretation Comments Lymphocytes (%) (Auto) (test code = 736-9) 22.1 18.0-39.1 [facility] CenterMonocytes (%) (Auto)2019-04-15 09:18:00* Test Item Value Reference Range Interpretation Comments Monocytes (%) (Auto) (test code = 5905-5) 8.9 4.4-11.3 [facility] CenterEosinophils (%) (Auto)2019-04-15 09:18:00 * Test Item Value Reference Range Interpretation Comments Eosinophils (%) (Auto) (test code = 713-8) 2.0 0.0-6.0 [facility] CenterBasophils (%) (Auto)2019-04-15 09:18:00* Test Item Value Reference Range Interpretation Comments Basophils (%) (Auto) (test code = 706-2) 0.8 0.0-1.0 [facility] CenterIM GRANULOCYTES %2019-04-15 09:18:00* Test Item Value Reference Range Interpretation Comments IM GRANULOCYTES % (test code = IM GRANULOCYTES %) 0.4 0.0- 1.0 [facility] CenterNeutrophils # (Auto)2019-04-15 09:18:00* Test Item Value Reference Range Interpretation Comments Neutrophils # (Auto) (test code = 751-8) 5.6 2.1-6.9 [facility] CenterLymphocytes # (Auto)2019-04-15 09:18:00* Test Item Value Reference Range Interpretation Comments Lymphocytes # (Auto) (test code = 44898-1) 1.9 1.0-3.2 [facility] CenterMonocytes # (Auto)2019-04-15 09:18:00* Test Item Value Reference Range Interpretation Comments Monocytes # (Auto) (test code = 742-7) 0.8 0.2-0.8 [facility] CenterEosinophils # (Auto)2019-04-15 09:18:00* Test Item Value Reference Range Interpretation Comments Eosinophils # (Auto) (test code = 711-2) 0.2 0.0-0.4 [facility] CenterBasophils # (Auto)2019-04-15 09:18:00* Test Item Value Reference Range Interpretation Comments Basophils # (Auto) (test code = 704-7) 0.1 0.0-0.1 [facility] CenterAbsolute Immature Granulocyte (auto 2019-04-15 09:18:00* Test Item Value Reference Range Interpretation Comments Absolute Immature Granulocyte (auto (anjali t code = Absolute Immature Granulocyte (auto) 0.03 0-0.1 [facility] CenterWhite Blood Pdcju9518-46-58 09:18:00* Test Item Value Reference Range Interpretation Comments White Blood Count (test code = 6690-2) 8.56 4.8-10.8 [facility] CenterRed Blood Xkayv4726-10-27 09:18:00* Test Item Value Reference Range Interpretation Comments Red Blood Count (test code = 789-8) 4.49 3.6-5.1 [facility] CenterHemoglobin2019-11-21 09:18:00* Test Item Value Reference Range Interpretation Comments Hemoglobin (test code = 67051-3) 13.8 12.0-16.0 [facility] CenterHematocrit2019-11-21 09:18:00* Test Item Value Reference Range Interpretation Comments Hematocrit (test code = 4544-3) 41.1 34.2-44.1 [facility] CenterMean Corpuscular Pwfwhu2797-74-93 09:18:00* Test Item Value Reference Range Interpretation Comments Mean Corpuscular Volume (test code = 787-2) 91.5 81-99 [facility] CenterMean Corpuscular Qeokdoevab8519-23-39 09:18:00* Test Item Value Reference Range Interpretation Comments Mean Corpuscular Hemoglobin (test code = 785-6) 30.7 28-32 [facility] CenterMean Corpuscular Hemoglobin Concent 2019-04-15 09:18:00* Test Item Value Reference Range Interpretation Comments Mean Corpuscular Hemoglobin Concent (test code = 786-4) 33.6 31-35 [facility] CenterRed Cell Distribution Qbpxu4095-90-53 09:18:00* Test Item Value Reference Range Interpretation Comments Red Cell Distribution Width (test code = 93684-2) 13.1 11.7 -14.4 [facility] CenterPlatelet Iibfe4709-36-76 09:18:00* Test Item Value Reference Range Interpretation Comments Platelet Count (test code = 777-3) 248 140-360 [facility] CenterNeutrophils (%) (Auto)2019-04-15 09:18:00 * Test Item Value Reference Range Interpretation Comments Neutrophils (%) (Auto) (test code = 51404-8) 65.8 38.7-80.0 [facility] CenterLymphocytes (%) (Auto)2019-04-15 09:18:00 * Test Item Value Reference Range Interpretation Comments Lymphocytes (%) (Auto) (test code = 736-9) 22.1 18.0-39.1 [facility] CenterMonocytes (%) (Auto)2019-04-15 09:18:00* Test Item Value Reference Range Interpretation Comments Monocytes (%) (Auto) (test code = 5905-5) 8.9 4.4-11.3 [facility] CenterEosinophils (%) (Auto)2019-04-15 09:18:00 * Test Item Value Reference Range Interpretation Comments Eosinophils (%) (Auto) (test code = 713-8) 2.0 0.0-6.0 [facility] CenterBasophils (%) (Auto)2019-04-15 09:18:00* Test Item Value Reference Range Interpretation Comments Basophils (%) (Auto) (test code = 706-2) 0.8 0.0-1.0 [facility] CenterIM GRANULOCYTES %2019-04-15 09:18:00* Test Item Value Reference Range Interpretation Comments IM GRANULOCYTES % (test code = IM GRANULOCYTES %) 0.4 0.0- 1.0 [facility] CenterNeutrophils # (Auto)2019-04-15 09:18:00* Test Item Value Reference Range Interpretation Comments Neutrophils # (Auto) (test code = 751-8) 5.6 2.1-6.9 [facility] CenterLymphocytes # (Auto)2019-04-15 09:18:00* Test Item Value Reference Range Interpretation Comments Lymphocytes # (Auto) (test code = 14698-7) 1.9 1.0-3.2 [facility] CenterMonocytes # (Auto)2019-04-15 09:18:00* Test Item Value Reference Range Interpretation Comments Monocytes # (Auto) (test code = 742-7) 0.8 0.2-0.8 [facility] CenterEosinophils # (Auto)2019-04-15 09:18:00* Test Item Value Reference Range Interpretation Comments Eosinophils # (Auto) (test code = 711-2) 0.2 0.0-0.4 [facility] CenterBasophils # (Auto)2019-04-15 09:18:00* Test Item Value Reference Range Interpretation Comments Basophils # (Auto) (test code = 704-7) 0.1 0.0-0.1 [facility] CenterAbsolute Immature Granulocyte (auto 2019-04-15 09:18:00* Test Item Value Reference Range Interpretation Comments Absolute Immature Granulocyte (auto (anjali t code = Absolute Immature Granulocyte (auto) 0.03 0-0.1 [facility] CenterWhite Blood Jxkjn7615-31-24 09:18:00* Test Item Value Reference Range Interpretation Comments White Blood Count (test code = 6690-2) 8.56 4.8-10.8 [facility] CenterRed Blood Egslt7578-74-75 09:18:00* Test Item Value Reference Range Interpretation Comments Red Blood Count (test code = 789-8) 4.49 3.6-5.1 [facility] CenterHemoglobin2019-11-21 09:18:00* Test Item Value Reference Range Interpretation Comments Hemoglobin (test code = 33709-6) 13.8 12.0-16.0 [facility] CenterHematocrit2019-11-21 09:18:00* Test Item Value Reference Range Interpretation Comments Hematocrit (test code = 4544-3) 41.1 34.2-44.1 [facility] CenterMean Corpuscular Vdiqdi1173-13-80 09:18:00* Test Item Value Reference Range Interpretation Comments Mean Corpuscular Volume (test code = 787-2) 91.5 81-99 [facility] CenterMean Corpuscular Qgsovdvasc4195-12-57 09:18:00* Test Item Value Reference Range Interpretation Comments Mean Corpuscular Hemoglobin (test code = 785-6) 30.7 28-32 [facility] CenterMean Corpuscular Hemoglobin Concent 2019-04-15 09:18:00* Test Item Value Reference Range Interpretation Comments Mean Corpuscular Hemoglobin Concent (test code = 786-4) 33.6 31-35 [facility] CenterRed Cell Distribution Yjtcp5054-51-80 09:18:00* Test Item Value Reference Range Interpretation Comments Red Cell Distribution Width (test code = 62343-1) 13.1 11.7 -14.4 [facility] CenterPlatelet Xxdzo6316-37-62 09:18:00* Test Item Value Reference Range Interpretation Comments Platelet Count (test code = 777-3) 248 140-360 [facility] CenterNeutrophils (%) (Auto)2019-04-15 09:18:00 * Test Item Value Reference Range Interpretation Comments Neutrophils (%) (Auto) (test code = 75126-2) 65.8 38.7-80.0 [facility] CenterLymphocytes (%) (Auto)2019-04-15 09:18:00 * Test Item Value Reference Range Interpretation Comments Lymphocytes (%) (Auto) (test code = 736-9) 22.1 18.0-39.1 [facility] CenterMonocytes (%) (Auto)2019-04-15 09:18:00* Test Item Value Reference Range Interpretation Comments Monocytes (%) (Auto) (test code = 5905-5) 8.9 4.4-11.3 [facility] CenterEosinophils (%) (Auto)2019-04-15 09:18:00 * Test Item Value Reference Range Interpretation Comments Eosinophils (%) (Auto) (test code = 713-8) 2.0 0.0-6.0 [facility] CenterBasophils (%) (Auto)2019-04-15 09:18:00* Test Item Value Reference Range Interpretation Comments Basophils (%) (Auto) (test code = 706-2) 0.8 0.0-1.0 [facility] CenterIM GRANULOCYTES %2019-04-15 09:18:00* Test Item Value Reference Range Interpretation Comments IM GRANULOCYTES % (test code = IM GRANULOCYTES %) 0.4 0.0- 1.0 [facility] CenterNeutrophils # (Auto)2019-04-15 09:18:00* Test Item Value Reference Range Interpretation Comments Neutrophils # (Auto) (test code = 751-8) 5.6 2.1-6.9 [facility] CenterLymphocytes # (Auto)2019-04-15 09:18:00* Test Item Value Reference Range Interpretation Comments Lymphocytes # (Auto) (test code = 66943-4) 1.9 1.0-3.2 [facility] CenterMonocytes # (Auto)2019-04-15 09:18:00* Test Item Value Reference Range Interpretation Comments Monocytes # (Auto) (test code = 742-7) 0.8 0.2-0.8 [facility] CenterEosinophils # (Auto)2019-04-15 09:18:00* Test Item Value Reference Range Interpretation Comments Eosinophils # (Auto) (test code = 711-2) 0.2 0.0-0.4 [facility] CenterBasophils # (Auto)2019-04-15 09:18:00* Test Item Value Reference Range Interpretation Comments Basophils # (Auto) (test code = 704-7) 0.1 0.0-0.1 [facility] CenterAbsolute Immature Granulocyte (auto 2019-04-15 09:18:00* Test Item Value Reference Range Interpretation Comments Absolute Immature Granulocyte (auto (anjali t code = Absolute Immature Granulocyte (auto) 0.03 0-0.1 [facility] CenterWhite Blood Nlhzd0915-34-98 09:18:00* Test Item Value Reference Range Interpretation Comments White Blood Count (test code = 6690-2) 8.56 4.8-10.8 [facility] CenterRed Blood Mywma5041-01-35 09:18:00* Test Item Value Reference Range Interpretation Comments Red Blood Count (test code = 789-8) 4.49 3.6-5.1 [facility] CenterHemoglobin2019-11-21 09:18:00* Test Item Value Reference Range Interpretation Comments Hemoglobin (test code = 73085-1) 13.8 12.0-16.0 [facility] CenterHematocrit2019-11-21 09:18:00* Test Item Value Reference Range Interpretation Comments Hematocrit (test code = 4544-3) 41.1 34.2-44.1 [facility] CenterMean Corpuscular Lhwboc7065-74-47 09:18:00* Test Item Value Reference Range Interpretation Comments Mean Corpuscular Volume (test code = 787-2) 91.5 81-99 [facility] CenterMean Corpuscular Vmqdymttsz2939-58-15 09:18:00* Test Item Value Reference Range Interpretation Comments Mean Corpuscular Hemoglobin (test code = 785-6) 30.7 28-32 [facility] Hem[facility] Concent 2019-04-15 09:18:00* Test Item Value Reference Range Interpretation Comments Mean Corpuscular Hemoglobin Concent (test code = 786-4) 33.6 31-35 [facility] CenterRed Cell Distribution Hcekk2532-87-12 09:18:00* Test Item Value Reference Range Interpretation Comments Red Cell Distribution Width (test code = 03604-1) 13.1 11.7 -14.4 [facility] CenterPlatelet Abtes0116-73-20 09:18:00* Test Item Value Reference Range Interpretation Comments Platelet Count (test code = 777-3) 248 140-360 [facility] CenterNeutrophils (%) (Auto)2019-04-15 09:18:00 * Test Item Value Reference Range Interpretation Comments Neutrophils (%) (Auto) (test code = 59114-8) 65.8 38.7-80.0 [facility] CenterLymphocytes (%) (Auto)2019-04-15 09:18:00 * Test Item Value Reference Range Interpretation Comments Lymphocytes (%) (Auto) (test code = 736-9) 22.1 18.0-39.1 [facility] CenterMonocytes (%) (Auto)2019-04-15 09:18:00* Test Item Value Reference Range Interpretation Comments Monocytes (%) (Auto) (test code = 5905-5) 8.9 4.4-11.3 [facility] CenterEosinophils (%) (Auto)2019-04-15 09:18:00 * Test Item Value Reference Range Interpretation Comments Eosinophils (%) (Auto) (test code = 713-8) 2.0 0.0-6.0 [facility] CenterBasophils (%) (Auto)2019-04-15 09:18:00* Test Item Value Reference Range Interpretation Comments Basophils (%) (Auto) (test code = 706-2) 0.8 0.0-1.0 [facility] CenterIM GRANULOCYTES %2019-04-15 09:18:00* Test Item Value Reference Range Interpretation Comments IM GRANULOCYTES % (test code = IM GRANULOCYTES %) 0.4 0.0- 1.0 [facility] CenterNeutrophils # (Auto)2019-04-15 09:18:00* Test Item Value Reference Range Interpretation Comments Neutrophils # (Auto) (test code = 751-8) 5.6 2.1-6.9 [facility] CenterLymphocytes # (Auto)2019-04-15 09:18:00* Test Item Value Reference Range Interpretation Comments Lymphocytes # (Auto) (test code = 77651-0) 1.9 1.0-3.2 [facility] CenterMonocytes # (Auto)2019-04-15 09:18:00* Test Item Value Reference Range Interpretation Comments Monocytes # (Auto) (test code = 742-7) 0.8 0.2-0.8 [facility] CenterEosinophils # (Auto)2019-04-15 09:18:00* Test Item Value Reference Range Interpretation Comments Eosinophils # (Auto) (test code = 711-2) 0.2 0.0-0.4 [facility] CenterBasophils # (Auto)2019-04-15 09:18:00* Test Item Value Reference Range Interpretation Comments Basophils # (Auto) (test code = 704-7) 0.1 0.0-0.1 [facility] CenterAbsolute Immature Granulocyte (auto 2019-04-15 09:18:00* Test Item Value Reference Range Interpretation Comments Absolute Immature Granulocyte (auto (anjali t code = Absolute Immature Granulocyte (auto) 0.03 0-0.1 [facility] CenterWhite Blood Ctetx8761-77-57 09:18:00* Test Item Value Reference Range Interpretation Comments White Blood Count (test code = 6690-2) 8.56 4.8-10.8 [facility] CenterRed Blood Wmzxj0186-68-40 09:18:00* Test Item Value Reference Range Interpretation Comments Red Blood Count (test code = 789-8) 4.49 3.6-5.1 [facility] CenterHemoglobin2019-11-21 09:18:00* Test Item Value Reference Range Interpretation Comments Hemoglobin (test code = 30773-4) 13.8 12.0-16.0 [facility] CenterHematocrit2019-11-21 09:18:00* Test Item Value Reference Range Interpretation Comments Hematocrit (test code = 4544-3) 41.1 34.2-44.1 [facility] CenterMean Corpuscular Nvmowg4156-55-82 09:18:00* Test Item Value Reference Range Interpretation Comments Mean Corpuscular Volume (test code = 787-2) 91.5 81-99 [facility] CenterMean Corpuscular Kchtpkvhsg3736-34-07 09:18:00* Test Item Value Reference Range Interpretation Comments Mean Corpuscular Hemoglobin (test code = 785-6) 30.7 28-32 [facility] CenterMean Corpuscular Hemoglobin Concent 2019-04-15 09:18:00* Test Item Value Reference Range Interpretation Comments Mean Corpuscular Hemoglobin Concent (test code = 786-4) 33.6 31-35 [facility] CenterRed Cell Distribution Otdph9735-50-74 09:18:00* Test Item Value Reference Range Interpretation Comments Red Cell Distribution Width (test code = 40546-6) 13.1 11.7 -14.4 [facility] CenterPlatelet Btptd7327-61-47 09:18:00* Test Item Value Reference Range Interpretation Comments Platelet Count (test code = 777-3) 248 140-360 [facility] CenterNeutrophils (%) (Auto)2019-04-15 09:18:00 * Test Item Value Reference Range Interpretation Comments Neutrophils (%) (Auto) (test code = 94623-2) 65.8 38.7-80.0 [facility] CenterLymphocytes (%) (Auto)2019-04-15 09:18:00 * Test Item Value Reference Range Interpretation Comments Lymphocytes (%) (Auto) (test code = 736-9) 22.1 18.0-39.1 [facility] CenterMonocytes (%) (Auto)2019-04-15 09:18:00* Test Item Value Reference Range Interpretation Comments Monocytes (%) (Auto) (test code = 5905-5) 8.9 4.4-11.3 [facility] CenterEosinophils (%) (Auto)2019-04-15 09:18:00 * Test Item Value Reference Range Interpretation Comments Eosinophils (%) (Auto) (test code = 713-8) 2.0 0.0-6.0 [facility] CenterBasophils (%) (Auto)2019-04-15 09:18:00* Test Item Value Reference Range Interpretation Comments Basophils (%) (Auto) (test code = 706-2) 0.8 0.0-1.0 [facility] CenterIM GRANULOCYTES %2019-04-15 09:18:00* Test Item Value Reference Range Interpretation Comments IM GRANULOCYTES % (test code = IM GRANULOCYTES %) 0.4 0.0- 1.0 [facility] CenterNeutrophils # (Auto)2019-04-15 09:18:00* Test Item Value Reference Range Interpretation Comments Neutrophils # (Auto) (test code = 751-8) 5.6 2.1-6.9 [facility] CenterLymphocytes # (Auto)2019-04-15 09:18:00* Test Item Value Reference Range Interpretation Comments Lymphocytes # (Auto) (test code = 25249-6) 1.9 1.0-3.2 [facility] CenterMonocytes # (Auto)2019-04-15 09:18:00* Test Item Value Reference Range Interpretation Comments Monocytes # (Auto) (test code = 742-7) 0.8 0.2-0.8 [facility] CenterEosinophils # (Auto)2019-04-15 09:18:00* Test Item Value Reference Range Interpretation Comments Eosinophils # (Auto) (test code = 711-2) 0.2 0.0-0.4 [facility] CenterBasophils # (Auto)2019-04-15 09:18:00* Test Item Value Reference Range Interpretation Comments Basophils # (Auto) (test code = 704-7) 0.1 0.0-0.1 [facility] CenterAbsolute Immature Granulocyte (auto 2019-04-15 09:18:00* Test Item Value Reference Range Interpretation Comments Absolute Immature Granulocyte (auto (anjali t code = Absolute Immature Granulocyte (auto) 0.03 0-0.1 [facility] CenterAmorphous sediment detection in urine sediment by light dknoiohrij7534-86-86 08:00:00* Test Item Value Reference Range Interpretation Comments Urine Amorphous Sediment (test code = 8246-1) FEW FEW [facility] CenterHyaline casts detection in urine sediment by light jwlwrxbxhv2040-64-03 08:00:00* Test Item Value Reference Range Interpretation Comments Urine Hyaline Casts (test code = 72393-5) 0-1 0-1 [facility] CenterCoarse granular casts detection in urine sediment by light gdvujhjkto9723-30-47 08:00:00* Test Item Value Reference Range Interpretation Comments Urine Coarse Granular Casts (test code = 35273-5) 1-5 >0 [facility] CenterMucus detection in urine sediment by light zeqgfdvpdz4015-63-45 08:00:00* Test Item Value Reference Range Interpretation Comments Urine Mucus (test code = 8247-9) MODERATE RARE [facility] or plasma magnesium measurement (mass/volume)2019-04-15 08:00:00* Test Item Value Reference Range Interpretation Comments Magnesium Level (test code = 79389-1) 2.1 1.3-2.1 [facility] Stationerum or plasma lipase measurement (enzymatic activity/volume)2019-04-15 08:00:00* Test Item Value Reference Range Interpretation Comments Lipase (test code = 3040-3) 75 8-78 [facility] CenterAmorphous sediment detection in urine sediment by light xpuzhjhjgy7526-20-21 08:00:00* Test Item Value Reference Range Interpretation Comments Urine Amorphous Sediment (test code = 8246-1) FEW FEW [facility] CenterHyaline casts detection in urine sediment by light xtnndoaduw5003-27-72 08:00:00* Test Item Value Reference Range Interpretation Comments Urine Hyaline Casts (test code = 34758-2) 0-1 0-1 [facility] CenterCoarse granular casts detection in urine sediment by light tyuiowfhji1180-14-67 08:00:00* Test Item Value Reference Range Interpretation Comments Urine Coarse Granular Casts (test code = 22683-9) 1-5 >0 [facility] CenterMucus detection in urine sediment by light umwfnuruvx9390-80-66 08:00:00* Test Item Value Reference Range Interpretation Comments Urine Mucus (test code = 8247-9) MODERATE RARE [facility] Stationerum or plasma magnesium measurement (mass/volume)2019-04-15 08:00:00* Test Item Value Reference Range Interpretation Comments Magnesium Level (test code = 37674-0) 2.1 1.3-2.1 [facility] Stationerum or plasma lipase measurement (enzymatic activity/volume)2019-04-15 08:00:00* Test Item Value Reference Range Interpretation Comments Lipase (test code = 3040-3) 75 8-78 [facility] Xneqvae1941-46-47 11:18:00* Test Item Value Reference Range Interpretation Comments Blood Culture (test code = 94670222) NO GROWTH AFTER 5 DAYS, FINAL REPORT [facility]2019-06-23 11:18:00* Test Item Value Reference Range Interpretation Comments Blood Culture (test code = 56147223) NO GROWTH AFTER 5 DAYS, FINAL REPORT [facility] Dgayeon0455-61-18 11:18:00* Test Item Value Reference Range Interpretation Comments Blood Culture (test code = 48650011) NO GROWTH AFTER 5 DAYS, FINAL REPORT [facility]2019-06-23 11:18:00* Test Item Value Reference Range Interpretation Comments Blood Culture (test code = 12899518) NO GROWTH AFTER 5 DAYS, FINAL REPORT [facility]2019-06-23 11:18:00* Test Item Value Reference Range Interpretation Comments Blood Culture (test code = 92789387) NO GROWTH AFTER 5 DAYS, FINAL REPORT [facility] Xrowixa8289-77-60 12:00:00* Test Item Value Reference Range Interpretation Comments Bedside Glucose (test code = 38218-0) 142 70-120 H Meter ID: [id number] [place] Glucose 2018-11-13 12:00:00* Test Item Value Reference Range Interpretation Comments Bedside Glucose (test code = 77032-7) 142 70-120 H Meter ID: [id number] [facility] [place] Glucose 2018-11-13 12:00:00* Test Item Value Reference Range Interpretation Comments Bedside Glucose (test code = 17127-9) 142 70-120 H Meter ID: [id number] [facility] [place] Glucose 2018-11-13 12:00:00* Test Item Value Reference Range Interpretation Comments Bedside Glucose (test code = 10615-2) 142 70-120 H Meter ID: [id number] [facility] [place] Glucose 2018-11-13 12:00:00* Test Item Value Reference Range Interpretation Comments Bedside Glucose (test code = 51216-3) 142 70-120 H Meter ID: [id number] [facility] Glucose 2018-11-13 12:00:00* Test Item Value Reference Range Interpretation Comments Bedside Glucose (test code = 91186-2) 142 70-120 H Meter ID: [id number] [facility] [place] Glucose 2018-11-13 12:00:00* Test Item Value Reference Range Interpretation Comments Bedside Glucose (test code = 74465-5) 142 70-120 H Meter ID: [id number] [facility] [place] Glucose 2018-11-13 12:00:00* Test Item Value Reference Range Interpretation Comments Bedside Glucose (test code = 17998-6) 142 70-120 H Meter ID: [id number] [facility] Medical CenterBlood Culture 2018-11-11 11:18:00* Test Item Value Reference Range Interpretation Comments Blood Culture (test code = 17549539) NO GROWTH AFTER 24 HOURS [facility] CenterDifferential Total Cells Counted 2018-11-11 07:27:00* Test Item Value Reference Range Interpretation Comments Differential Total Cells Counted (test code = Julianna gal[place] Total Cells Counted) 100 [facility] CenterNeutrophils % (Manual)2018-11-11 07:27:00 * Test Item Value Reference Range Interpretation Comments Neutrophils % (Manual) (test code = 62758-2) 90 40-74 H [facility] CenterLymphocytes % (Manual)2018-11-11 07:27:00 * Test Item Value Reference Range Interpretation Comments Lymphocytes % (Manual) (test code = 737-7) 7 19-48 L [facility] CenterMonocytes % (Manual)2018-11-11 07:27:00* Test Item Value Reference Range Interpretation Comments Monocytes % (Manual) (test code = 744-3) 3 3.4-9.0 L [facility] CenterPlatelet Bqtrspjr4623-52-55 07:27:00* Test Item Value Reference Range Interpretation Comments Platelet Estimate (test code = 00588-0) ADEQUATE [facility] CenterPlatelet Morphology Osgczpp2970-91-35 07:27:00* Test Item Value Reference Range Interpretation Comments Platelet Morphology Comment (test code = 34718-2) NORMAL [facility] CenterRed Cell Morphology Thisqar6236-43-21 07:27:00* Test Item Value Reference Range Interpretation Comments Red Cell Morphology Comment (test code = 6742-1) NORMAL [facility] CenterDifferential Total Cells Counted 2018-11-11 07:27:00* Test Item Value Reference Range Interpretation Comments Differential Total Cells Counted (test code = Differen tial Total Cells Counted) 100 [facility] CenterNeutrophils % (Manual)2018-11-11 07:27:00 * Test Item Value Reference Range Interpretation Comments Neutrophils % (Manual) (test code = 47192-4) 90 40-74 H [facility] CenterLymphocytes % (Manual)2018-11-11 07:27:00 * Test Item Value Reference Range Interpretation Comments Lymphocytes % (Manual) (test code = 737-7) 7 19-48 L [facility] CenterMonocytes % (Manual)2018-11-11 07:27:00* Test Item Value Reference Range Interpretation Comments Monocytes % (Manual) (test code = 744-3) 3 3.4-9.0 L [facility] CenterPlatelet Gewjbxmr3251-37-55 07:27:00* Test Item Value Reference Range Interpretation Comments Platelet Estimate (test code = 72001-8) ADEQUATE [facility] CenterPlatelet Morphology Vxazsea0949-33-00 07:27:00* Test Item Value Reference Range Interpretation Comments Platelet Morphology Comment (test code = 90873-5) NORMAL [facility] CenterRed Cell Morphology Bferbld9859-39-93 07:27:00* Test Item Value Reference Range Interpretation Comments Red Cell Morphology Comment (test code = 6742-1) NORMAL [facility] CenterDifferential Total Cells Counted 2018-11-11 07:27:00* Test Item Value Reference Range Interpretation Comments Differential Total Cells Counted (test code = Differen tial Total Cells Counted) 100 [facility] CenterNeutrophils % (Manual)2018-11-11 07:27:00 * Test Item Value Reference Range Interpretation Comments Neutrophils % (Manual) (test code = 10875-1) 90 40-74 H [facility] CenterLymphocytes % (Manual)2018-11-11 07:27:00 * Test Item Value Reference Range Interpretation Comments Lymphocytes % (Manual) (test code = 737-7) 7 19-48 L [facility] CenterMonocytes % (Manual)2018-11-11 07:27:00* Test Item Value Reference Range Interpretation Comments Monocytes % (Manual) (test code = 744-3) 3 3.4-9.0 L [facility] CenterPlatelet Tilwerqz2624-46-13 07:27:00* Test Item Value Reference Range Interpretation Comments Platelet Estimate (test code = 88523-3) ADEQUATE [facility] CenterPlatelet Morphology Lpkjfcy9009-72-32 07:27:00* Test Item Value Reference Range Interpretation Comments Platelet Morphology Comment (test code = 69860-9) NORMAL [facility] CenterRed Cell Morphology Npbibag2798-93-60 07:27:00* Test Item Value Reference Range Interpretation Comments Red Cell Morphology Comment (test code = 6742-1) NORMAL [facility] CenterDifferential Total Cells Counted 2018-11-11 07:27:00* Test Item Value Reference Range Interpretation Comments Differential Total Cells Counted (test code = Differen tial Total Cells Counted) 100 [facility] CenterNeutrophils % (Manual)2018-11-11 07:27:00 * Test Item Value Reference Range Interpretation Comments Neutrophils % (Manual) (test code = 14605-4) 90 40-74 H [facility] CenterLymphocytes % (Manual)2018-11-11 07:27:00 * Test Item Value Reference Range Interpretation Comments Lymphocytes % (Manual) (test code = 737-7) 7 19-48 L [facility] CenterMonocytes % (Manual)2018-11-11 07:27:00* Test Item Value Reference Range Interpretation Comments Monocytes % (Manual) (test code = 744-3) 3 3.4-9.0 L [facility] CenterPlatelet Zdgllfpn1387-95-59 07:27:00* Test Item Value Reference Range Interpretation Comments Platelet Estimate (test code = 66013-7) ADEQUATE [facility] CenterPlatelet Morphology Maufgus5997-41-16 07:27:00* Test Item Value Reference Range Interpretation Comments Platelet Morphology Comment (test code = 98758-7) NORMAL [facility] CenterRed Cell Morphology Phvxtdh6707-06-43 07:27:00* Test Item Value Reference Range Interpretation Comments Red Cell Morphology Comment (test code = 6742-1) NORMAL [facility] CenterDifferential Total Cells Counted 2018-11-11 07:27:00* Test Item Value Reference Range Interpretation Comments Differential Total Cells Counted (test code = Differdejuan tial Total Cells Counted) 100 [facility] CenterNeutrophils % (Manual)2018-11-11 07:27:00 * Test Item Value Reference Range Interpretation Comments Neutrophils % (Manual) (test code = 04551-4) 90 40-74 H [facility] CenterLymphocytes % (Manual)2018-11-11 07:27:00 * Test Item Value Reference Range Interpretation Comments Lymphocytes % (Manual) (test code = 737-7) 7 19-48 L [facility] CenterMon[facility] % (Manual)2018-11-11 07:27:00* Test Item Value Reference Range Interpretation Comments Monocytes % (Manual) (test code = 744-3) 3 3.4-9.0 L [facility] CenterPlatelet Ibkycwmo1275-72-20 07:27:00* Test Item Value Reference Range Interpretation Comments Platelet Estimate (test code = 74960-0) ADEQUATE [facility] CenterPlatelet Morphology Wgdxlmw5545-75-32 07:27:00* Test Item Value Reference Range Interpretation Comments Platelet Morphology Comment (test code = 25933-5) NORMAL [facility] CenterRed Cell Morphology Ddiokmf3351-66-96 07:27:00* Test Item Value Reference Range Interpretation Comments Red Cell Morphology Comment (test code = 6742-1) NORMAL [facility] CenterDifferential Total Cells Counted 2018-11-11 07:27:00* Test Item Value Reference Range Interpretation Comments Differential Total Cells Counted (test code = Differen tial Total Cells Counted) 100 [facility] CenterNeutrophils % (Manual)2018-11-11 07:27:00 * Test Item Value Reference Range Interpretation Comments Neutrophils % (Manual) (test code = 03134-3) 90 40-74 H [facility] CenterLymphocytes % (Manual)2018-11-11 07:27:00 * Test Item Value Reference Range Interpretation Comments Lymphocytes % (Manual) (test code = 737-7) 7 19-48 L [facility] CenterMonocytes % (Manual)2018-11-11 07:27:00* Test Item Value Reference Range Interpretation Comments Monocytes % (Manual) (test code = 744-3) 3 3.4-9.0 L [facility] CenterPlatelet Dfgwjcfo2097-40-17 07:27:00* Test Item Value Reference Range Interpretation Comments Platelet Estimate (test code = 83396-5) ADEQUATE [facility] CenterPlatelet Morphology Juymjxj0125-24-60 07:27:00* Test Item Value Reference Range Interpretation Comments Platelet Morphology Comment (test code = 23457-2) NORMAL [facility] CenterRed Cell Morphology Wqhkouv5858-51-58 07:27:00* Test Item Value Reference Range Interpretation Comments Red Cell Morphology Comment (test code = 6742-1) NORMAL [facility] CenterDifferential Total Cells Counted 2018-11-11 07:27:00* Test Item Value Reference Range Interpretation Comments Differential Total Cells Counted (test code = Differen tial Total Cells Counted) 100 [facility] CenterNeutrophils % (Manual)2018-11-11 07:27:00 * Test Item Value Reference Range Interpretation Comments Neutrophils % (Manual) (test code = 69473-4) 90 40-74 H [facility] CenterLymphocytes % (Manual)2018-11-11 07:27:00 * Test Item Value Reference Range Interpretation Comments Lymphocytes % (Manual) (test code = 737-7) 7 19-48 L [facility] CenterMonocytes % (Manual)2018-11-11 07:27:00* Test Item Value Reference Range Interpretation Comments Monocytes % (Manual) (test code = 744-3) 3 3.4-9.0 L [facility] CenterPlatelet Nxdfovzy6626-30-00 07:27:00* Test Item Value Reference Range Interpretation Comments Platelet Estimate (test code = 77716-0) ADEQUATE [facility] CenterPlatelet Morphology Lykgcrf8992-24-13 07:27:00* Test Item Value Reference Range Interpretation Comments Platelet Morphology Comment (test code = 62105-3) NORMAL [facility] CenterRed Cell Morphology Utjkjej1191-11-43 07:27:00* Test Item Value Reference Range Interpretation Comments Red Cell Morphology Comment (test code = 6742-1) NORMAL [facility] CenterDifferential Total Cells Counted 2018-11-11 07:27:00* Test Item Value Reference Range Interpretation Comments Differential Total Cells Counted (test code = Differdejuan tial Total Cells Counted) 100 [facility] CenterNeutrophils % (Manual)2018-11-11 07:27:00 * Test Item Value Reference Range Interpretation Comments Neutrophils % (Manual) (test code = 30960-2) 90 40-74 H [facility] CenterLymphocytes % (Manual)2018-11-11 07:27:00 * Test Item Value Reference Range Interpretation Comments Lymphocytes % (Manual) (test code = 737-7) 7 19-48 L [facility] CenterMonocytes % (Manual)2018-11-11 07:27:00* Test Item Value Reference Range Interpretation Comments Monocytes % (Manual) (test code = 744-3) 3 3.4-9.0 L [facility] CenterPlatelet Avammvff7335-21-04 07:27:00* Test Item Value Reference Range Interpretation Comments Platelet Estimate (test code = 99157-9) ADEQUATE [facility] CenterPlatelet Morphology Hxgdclh9154-11-48 07:27:00* Test Item Value Reference Range Interpretation Comments Platelet Morphology Comment (test code = 30384-1) NORMAL [facility] CenterRed Cell Morphology Aeepclp7859-65-06 07:27:00* Test Item Value Reference Range Interpretation Comments Red Cell Morphology Comment (test code = 6742-1) NORMAL [facility] CenterDifferential Total Cells Counted 2018-11-11 07:27:00* Test Item Value Reference Range Interpretation Comments Differential Total Cells Counted (test code = Julianna tial Total Cells Counted) 100 [facility] CenterNeutrophils % (Manual)2018-11-11 07:27:00 * Test Item Value Reference Range Interpretation Comments Neutrophils % (Manual) (test code = 01490-4) 90 40-74 H [facility] CenterLymphocytes % (Manual)2018-11-11 07:27:00 * Test Item Value Reference Range Interpretation Comments Lymphocytes % (Manual) (test code = 737-7) 7 19-48 L [facility] CenterMonocytes % (Manual)2018-11-11 07:27:00* Test Item Value Reference Range Interpretation Comments Monocytes % (Manual) (test code = 744-3) 3 3.4-9.0 L [facility] CenterPlatelet Owcbacxn0228-20-50 07:27:00* Test Item Value Reference Range Interpretation Comments Platelet Estimate (test code = 46993-9) ADEQUATE [facility] CenterPlatelet Morphology Avgqiit5570-39-45 07:27:00* Test Item Value Reference Range Interpretation Comments Platelet Morphology Comment (test code = 32861-7) NORMAL [facility] CenterRed Cell Morphology Lxvepwt7365-41-25 07:27:00* Test Item Value Reference Range Interpretation Comments Red Cell Morphology Comment (test code = 6742-1) NORMAL [facility] Stationodium Sytoc0580-35-01 06:22:00* Test Item Value Reference Range Interpretation Comments Sodium Level (test code = 2951-2) 139 136-145 [facility] CenterPotassium Vhrlu7177-71-21 06:22:00* Test Item Value Reference Range Interpretation Comments Potassium Level (test code = 2823-3) 4.1 3.5-5.1 [facility] CenterChloride Wnqjr4554-13-48 06:22:00* Test Item Value Reference Range Interpretation Comments Chloride Level (test code = 2075-0) 112 98-107 H [facility] CenterCarbon Dioxide Fbqyt6663-91-02 06:22:00* Test Item Value Reference Range Interpretation Comments Carbon Dioxide Level (test code = 2028-9) 21 22-29 L [facility] CenterAnion Njp8244-38-89 06:22:00* Test Item Value Reference Range Interpretation Comments Anion Gap (test code = 14737-9) 10.1 8-16 [facility] CenterBlood Urea Wnfdpztu7484-60-92 06:22:00* Test Item Value Reference Range Interpretation Comments Blood Urea Nitrogen (test code = 3094-0) 15 7-26 [facility] CenterCreatinine2019-06-19 06:22:00* Test Item Value Reference Range Interpretation Comments Creatinine (test code = 2160-0) 0.94 0.57-1.11 [facility] CenterBUN/Creatinine Wcqqk5907-78-73 06:22:00* Test Item Value Reference Range Interpretation Comments BUN/Creatinine Ratio (test code = 3097-3) 16 6- [facility] CenterEstimat Glomerular Filtration Rate 2018-11-11 06:22:00* Test Item Value Reference Range Interpretation Comments Estimat Glomerular Filtration Rate (test code = 004790749) 57 >60 L Ranges were taken from the National Kidney Disease Education Program and the [facility] Foundation literature.Reference ranges:60 or greater: Iuzpzf33-24 ( for 3 consecutive months): Chronic kidney disease 15 or less: Kidney failurePal[facility] Medical CenterGlucose Iyiev9732-56-84 06:22:00* Test Item Value Reference Range Interpretation Comments Glucose Level (test code = KKM2774) 118 74-118 [facility] CenterCalcium Ophgu2523-89-66 06:22:00* Test Item Value Reference Range Interpretation Comments Calcium Level (test code = 89374-4) 7.7 8.4-10.2 L [facility] CenterTotal Bbodfpejg3913-30-00 06:22:00* Test Item Value Reference Range Interpretation Comments Total Bilirubin (test code = 1975-2) 0.4 0.2-1.2 [facility] CenterAspartate Amino Transf (AST/SGOT) 2018-11-11 06:22:00* Test Item Value Reference Range Interpretation Comments Aspartate Amino Transf (AST/SGOT) (test code = Aspartate Amino Transf (AST/SGOT)) 25 5-34 [facility] CenterAlanine Aminotransferase (ALT/SGPT) 2018-11-11 06:22:00* Test Item Value Reference Range Interpretation Comments Alanine Aminotransferase (ALT/SGPT) (test code = 1742-6) 23 0-55 [facility] CenterTotal Yfwidbw4479-47-49 06:22:00* Test Item Value Reference Range Interpretation Comments Total Protein (test code = 2885-2) 5.3 6.5-8.1 L [facility] CenterAlbumin2019-06-19 06:22:00* Test Item Value Reference Range Interpretation Comments Albumin (test code = 1751-7) 2.7 3.5-5.0 L [facility] CenterGlobulin2019-06-19 06:22:00* Test Item Value Reference Range Interpretation Comments Globulin (test code = 67004-3) 2.6 2.3-3.5 [facility] CenterAlbumin/Globulin Nvhfk8616-89-63 06:22:00 * Test Item Value Reference Range Interpretation Comments Albumin/Globulin Ratio (test code = 1759-0) 1.0 0.8-2.0 [facility] CenterAlkaline Tnzwepixkvk3953-14-32 06:22:00* Test Item Value Reference Range Interpretation Comments Alkaline Phosphatase (test code = 6768-6) 61 40-150 [facility] CenterAmylase Xmycp1126-23-65 06:22:00* Test Item Value Reference Range Interpretation Comments Amylase Level (test code = 1798-8) 52 25-125 [facility] CenterLipase2019-06-19 06:22:00* Test Item Value Reference Range Interpretation Comments Lipase (test code = 3040-3) 39 8-78 [facility] CenterAmylase Egnsg8180-36-24 06:22:00* Test Item Value Reference Range Interpretation Comments Amylase Level (test code = 1798-8) 52 25-125 [facility] CenterAmylase Tfkeg3269-47-70 06:22:00* Test Item Value Reference Range Interpretation Comments Amylase Level (test code = 1798-8) 52 25-125 [facility] CenterAmylase Gcwkw6046-01-63 06:22:00* Test Item Value Reference Range Interpretation Comments Amylase Level (test code = 1798-8) 52 25-125 [facility] CenterAmylase Cjudq6969-28-35 06:22:00* Test Item Value Reference Range Interpretation Comments Amylase Level (test code = 1798-8) 52 25-125 [facility] CenterAmylase Emiem3681-88-16 06:22:00* Test Item Value Reference Range Interpretation Comments Amylase Level (test code = 1798-8) 52 25-125 [facility] CenterAmylase Pnvmd3705-16-62 06:22:00* Test Item Value Reference Range Interpretation Comments Amylase Level (test code = 1798-8) 52 25-125 [facility] CenterAmylase Cefck1170-21-94 06:22:00* Test Item Value Reference Range Interpretation Comments Amylase Level (test code = 1798-8) 52 25-125 [facility] CenterAmylase Yyzky9370-56-54 06:22:00* Test Item Value Reference Range Interpretation Comments Amylase Level (test code = 1798-8) 52 25-125 [facility] CenterWhite Blood Jsubg5288-98-68 06:17:00* Test Item Value Reference Range Interpretation Comments White Blood Count (test code = 6690-2) 9.38 4.8-10.8 [facility] CenterRed Blood Ujapz8015-68-27 06:17:00* Test Item Value Reference Range Interpretation Comments Red Blood Count (test code = 789-8) 3.27 3.6-5.1 L [facility] CenterHemoglobin2019-06-19 06:17:00* Test Item Value Reference Range Interpretation Comments Hemoglobin (test code = 07436-5) 10.0 12.0-16.0 L [facility] CenterHematocrit2019-06-19 06:17:00* Test Item Value Reference Range Interpretation Comments Hematocrit (test code = 4544-3) 31.0 34.2-44.1 L [facility] CenterMean Corpuscular Pgzicq6144-90-93 06:17:00* Test Item Value Reference Range Interpretation Comments Mean Corpuscular Volume (test code = 787-2) 94.8 81-99 [facility] CenterMean Corpuscular Wjeczdqffj9707-18-32 06:17:00* Test Item Value Reference Range Interpretation Comments Mean Corpuscular Hemoglobin (test code = 785-6) 30.6 28-32 [facility] CenterMean Corpuscular Hemoglobin Concent 2018-11-11 06:17:00* Test Item Value Reference Range Interpretation Comments Mean Corpuscular Hemoglobin Concent (test code = 786-4) 32.3 31-35 [facility] CenterRed Cell Distribution Gooxn3189-45-18 06:17:00* Test Item Value Reference Range Interpretation Comments Red Cell Distribution Width (test code = 24655-6) 13.3 11.7 -14.4 [facility] CenterPlatelet Jllnd1987-35-16 06:17:00* Test Item Value Reference Range Interpretation Comments Platelet Count (test code = 777-3) 175 140-360 [facility] CenterNeutrophils (%) (Auto)2018-11-11 06:17:00 * Test Item Value Reference Range Interpretation Comments Neutrophils (%) (Auto) (test code = 79354-5) 86.2 38.7-80.0 H [facility] CenterLymphocytes (%) (Auto)2018-11-11 06:17:00 * Test Item Value Reference Range Interpretation Comments Lymphocytes (%) (Auto) (test code = 736-9) 6.2 18.0-39.1 L [facility] CenterMonocytes (%) (Auto)2018-11-11 06:17:00* Test Item Value Reference Range Interpretation Comments Monocytes (%) (Auto) (test code = 5905-5) 6.5 4.4-11.3 [facility] CenterEosinophils (%) (Auto)2018-11-11 06:17:00 * Test Item Value Reference Range Interpretation Comments Eosinophils (%) (Auto) (test code = 713-8) 0.0 0.0-6.0 [facility] CenterBasophils (%) (Auto)2018-11-11 06:17:00* Test Item Value Reference Range Interpretation Comments Basophils (%) (Auto) (test code = 706-2) 0.1 0.0-1.0 [facility] CenterIM GRANULOCYTES %2018-11-11 06:17:00* Test Item Value Reference Range Interpretation Comments IM GRANULOCYTES % (test code = IM GRANULOCYTES %) 1.0 0.0- 1.0 [facility] CenterNeutrophils # (Auto)2018-11-11 06:17:00* Test Item Value Reference Range Interpretation Comments Neutrophils # (Auto) (test code = 751-8) 8.1 2.1-6.9 H [facility] CenterLymphocytes # (Auto)2018-11-11 06:17:00* Test Item Value Reference Range Interpretation Comments Lymphocytes # (Auto) (test code = 49316-3) 0.6 1.0-3.2 L [facility] CenterMonocytes # (Auto)2018-11-11 06:17:00* Test Item Value Reference Range Interpretation Comments Monocytes # (Auto) (test code = 742-7) 0.6 0.2-0.8 [facility] CenterEosinophils # (Auto)2018-11-11 06:17:00* Test Item Value Reference Range Interpretation Comments Eosinophils # (Auto) (test code = 711-2) 0.0 0.0-0.4 [facility] CenterBasophils # (Auto)2018-11-11 06:17:00* Test Item Value Reference Range Interpretation Comments Basophils # (Auto) (test code = 704-7) 0.0 0.0-0.[address] [facility] Immature Granulocyte (auto 2018-11-11 06:17:00* Test Item Value Reference Range Interpretation Comments Absolute Immature Granulocyte (auto (anjali t code = Absolute Immature Granulocyte (auto) 0.09 0-0.1 [facility] CenterInfluenza Virus Types A,B Antigen 2018-11-10 05:38:00* Test Item Value Reference Range Interpretation Comments Influenza Virus Types A,B Antigen (test code = 36689-4) NEGATIVE NEGATIVE [facility] CenterInfluenza Virus Types A,B Antigen 2018-11-10 05:38:00* Test Item Value Reference Range Interpretation Comments Influenza Virus Types A,B Antigen (test code = 43146-0) NEGATIVE NEGATIVE [facility] CenterInfluenza Virus Types A,B Antigen 2018-11-10 05:38:00* Test Item Value Reference Range Interpretation Comments Influenza Virus Types A,B Antigen (test code = 76437-3) NEGATIVE NEGATIVE [facility] CenterInfluenza Virus Types A,B Antigen 2018-11-10 05:38:00* Test Item Value Reference Range Interpretation Comments Influenza Virus Types A,B Antigen (test code = 96197-2) NEGATIVE NEGATIVE [facility] CenterInfluenza Virus Types A,B Antigen 2018-11-10 05:38:00* Test Item Value Reference Range Interpretation Comments Influenza Virus Types A,B Antigen (test code = 41991-3) NEGATIVE NEGATIVE [facility] CenterInfluenza Virus Types A,B Antigen 2018-11-10 05:38:00* Test Item Value Reference Range Interpretation Comments Influenza Virus Types A,B Antigen (test code = 96608-8) NEGATIVE NEGATIVE [facility] CenterInfluenza Virus Types A,B Antigen 2018-11-10 05:38:00* Test Item Value Reference Range Interpretation Comments Influenza Virus Types A,B Antigen (test code = 44893-5) NEGATIVE NEGATIVE [facility] CenterInfluenza Virus Types A,B Antigen 2018-11-10 05:38:00* Test Item Value Reference Range Interpretation Comments Influenza Virus Types A,B Antigen (test code = 50575-2) NEGATIVE NEGATIVE [facility] CenterInfluenza Virus Types A,B Antigen 2018-11-10 05:38:00* Test Item Value Reference Range Interpretation Comments Influenza Virus Types A,B Antigen (test code = 95015-5) NEGATIVE NEGATIVE [facility] DJ4083-76-10 05:23:00 [facility] [address] [address] Patient Name: YUE RAMSEY MR #: [id number] : 1935 Age/Sex: 83/F Req #: [id number] Adm Physician: Ordered by: FELICITY ALONSO MD Report #: [id number] Location: ER Room/Bed: Procedure: 0618 -0004 CT/CT ABDOMEN/PELVIS WO Exam Date: 11/10/18 Ex am Time: 042 REPORT STATUS: Signed EXAM: CT Abdomen and Pelvis WITHOUT contrast INDICATION: ABD PA IN, N/V/D [id number] Y COMPARISON: CT dated 05/21/2018 TECHNIQU [...] MD 6 Transcribed By: GELY on 11/10/18536 [employer]UC[employer]ER Y TO: FELICITY ALONSO MD CHEST SINGLE (PORTABLE)2018-11-10 05:21:00 [address] [place] [address] Patient Name: YUE RAMSEY MR #: [id number] : 1935 Age/Sex: 83/F Req #: [id number] Adm Physician: Ordered by: FELICITY ALONSO MD Report #: [id number] Location: ER Room/Bed: Procedure: 0618 -0013 DX/CHEST SINGLE (PORTABLE) Exam Date: 11/10/18 Exam Time: 424 REPORT STATUS: Sig leeroy EXAMINATION: CHEST SINGLE (PORTABLE) INDICATION: WEAKN ESS [id number] Y COMPARISON: 03/13/2017 FINDINGS: A P view [...] 11/10/18522 COPY TO: FELICITY ALONSO MD Urine LAW0768-25-31 05:00:00* Test Item Value Reference Range Interpretation Comments Urine WBC (test code = 5821-4) 6-10 0-5 H [facility] CenterUrine JJH5546-89-98 05:00:00* Test Item Value Reference Range Interpretation Comments Urine RBC (test code = 48144-4) 6-10 0-5 H [facility] CenterUrine Dqefbpdv3687-97-64 05:00:00* Test Item Value Reference Range Interpretation Comments Urine Bacteria (test code = 17465-8) MODERATE NONE H [facility] CenterUrine Epithelial Rqrpr4337-75-89 05:00:00 * Test Item Value Reference Range Interpretation Comments Urine Epithelial Cells (test code = 03825-1) FEW NONE [facility] CenterUrine Ehrgc1429-02-93 05:00:00* Test Item Value Reference Range Interpretation Comments Urine Mucus (test code = 8247-9) MODERATE RARE H [facility] Miuth4074-31-09 04:47:00* Test Item Value Reference Range Interpretation Comments Urine Color (test code = 5778-6) YELLOW YELLOW [facility] CenterUrine Bjpunfd4034-35-76 04:47:00* Test Item Value Reference Range Interpretation Comments Urine Clarity (test code = 19266-4) CLEAR CLEAR [facility] Specific Puqkzlh5492-38-72 04:47:00 * Test Item Value Reference Range Interpretation Comments Urine Specific Sperry (test code = 5811-5) 1.015 1.010-1.02 5 [facility] CenterUrine eW0340-48-59 04:47:00* Test Item Value Reference Range Interpretation Comments Urine pH (test code = 82862-5) 6 5-7 [facility] CenterU[facility] Leukocyte Kicnacqr2396-27-75 04:47:00* Test Item Value Reference Range Interpretation Comments Urine Leukocyte Esterase (test code = 85418-6) NEGATIVE NEGATIV E [facility] CenterUrine Ecybdds2681-43-61 04:47:00* Test Item Value Reference Range Interpretation Comments Urine Nitrite (test code = 64785-9) NEGATIVE NEGATIVE [facility] CenterUrine Bewxaat5828-59-32 04:47:00* Test Item Value Reference Range Interpretation Comments Urine Protein (test code = 01751-3) TRACE NEGATIVE H [facility] CenterUrine Glucose (UA)2018-11-10 04:47:00* Test Item Value Reference Range Interpretation Comments Urine Glucose (UA) (test code = 90568-2) NEGATIVE NEGATIVE [facility] CenterUrine Fkvvoqq6103-17-89 04:47:00* Test Item Value Reference Range Interpretation Comments Urine Ketones (test code = 52712-1) NEGATIVE NEGATIVE [facility] Pasujhzmbrro7982-64-41 04:47:00* Test Item Value Reference Range Interpretation Comments Urine Urobilinogen (test code = 50211-8) 0.2 0.2-1 [facility] CenterUrine Esmjgoitp9114-13-91 04:47:00* Test Item Value Reference Range Interpretation Comments Urine Bilirubin (test code = 1977-8) NEGATIVE NEGATIVE [facility] CenterUrine Smlta6785-85-82 04:47:00* Test Item Value Reference Range Interpretation Comments Urine Blood (test code = 17378-3) NEGATIVE NEGATIVE [facility] CenterCreatine Kinase IL3084-58-92 04:25:00* Test Item Value Reference Range Interpretation Comments Creatine Kinase MB (test code = 46462-3) 1.70 0-5.0 [facility] CenterTroponin O1953-53-53 04:25:00* Test Item Value Reference Range Interpretation Comments Troponin I (test code = OSJ3438) < 0.001 0-0.300 [facility] CenterCreatine Eqyjuy3364-59-16 04:01:00* Test Item Value Reference Range Interpretation Comments Creatine Kinase (test code = 2157-6) 124 29-168 [facility] CenterCT ABDOMEN/PELVIS TJ5363-29-52 19:51:00 [facility] [address] [address] Patient Name: YUE RAMSEY MR #: [id number] : 1935 Age/Sex: 82/F Req #: [id number] Adm Physician: Ordered by: BHARATHI JOHNSTON NP Report #: [id number] Location: ER Room/Bed: Procedure: 1297-0170 C T/CT ABDOMEN/PELVIS WO Exam Date: 05/21/18 Exam Time : 1818 REPORT STATUS: Signed EXA M: CT Abdomen and Pelvis WITHOUT contrast INDICATION: Vomiting ABD PAIN tv rbo per manager inpatient cacace wt 05/21/18@1750 COMPARISON: Abdominal ultrasound 03/08/2017 [...] set by the Radiation Protocol Com mittee (RP). FINDINGS: LINES and TUBES: None. LOWER [...] TO: BHARATHI JOHNSTON NP Differential Total Cells Vkveexm7257-22-17 15:22:00* Test Item Value Reference Range Interpretation Comments Differential Total Cells Counted (test code = Julianna tial Total Cells Counted) 100 [facility] CenterNeutrophils % (Manual)2018-05-21 15:22:00 * Test Item Value Reference Range Interpretation Comments Neutrophils % (Manual) (test code = 66500-6) 83 40-74 H [facility] CenterLymphocytes % (Manual)2018-05-21 15:22:00 * Test Item Value Reference Range Interpretation Comments Lymphocytes % (Manual) (test code = 737-7) 9 19-48 L [facility] CenterMonocytes % (Manual)2018-05-21 15:22:00* Test Item Value Reference Range Interpretation Comments Monocytes % (Manual) (test code = 744-3) 3 3.4-9.0 L [facility] CenterEosinophils % (Manual)2018-05-21 15:22:00 * Test Item Value Reference Range Interpretation Comments Eosinophils % (Manual) (test code = 714-6) 1 0-7 [facility] CenterReactive Bqvcyglhjem4083-56-79 15:22:00* Test Item Value Reference Range Interpretation Comments Reactive Lymphocytes (test code = 53685-3) 4 [facility] [facility] CenterPlatelet Eolugqbz7822-19-60 15:22:00* Test Item Value Reference Range Interpretation Comments Platelet Estimate (test code = 00028-2) ADEQUATE [facility] CenterRed Cell Morphology Ecxwlxt9906-37-62 15:22:00* Test Item Value Reference Range Interpretation Comments Red Cell Morphology Comment (test code = 6742-1) NORMAL [facility] CenterEosinophils % (Manual)2018-05-21 15:22:00 * Test Item Value Reference Range Interpretation Comments Eosinophils % (Manual) (test code = 714-6) 1 0-7 [facility] CenterReactive Gjszthinzqk8123-24-66 15:22:00* Test Item Value Reference Range Interpretation Comments Reactive Lymphocytes (test code = 41668-8) 4 [facility] CenterUrine Xttjx7361-11-94 14:51:00* Test Item Value Reference Range Interpretation Comments Urine Color (test code = 5778-6) YELLOW YELLOW [facility] CenterUrine Xjadbzs0743-02-67 14:51:00* Test Item Value Reference Range Interpretation Comments Urine Clarity (test code = 83790-1) CLOUDY CLEAR H [facility] CenterUrine Specific Gamuhkh4230-28-75 14:51:00 * Test Item Value Reference Range Interpretation Comments Urine Specific Sperry (test code = 5811-5) 1.025 1.010-1.02 5 [facility] CenterUrine dX9331-49-66 14:51:00* Test Item Value Reference Range Interpretation Comments Urine pH (test code = 59446-8) 5 5-7 [facility] CenterUrine Leukocyte Iyrllxzo5175-03-98 14:51:00* Test Item Value Reference Range Interpretation Comments Urine Leukocyte Esterase (test code = 5799-2) 1+ NEGATIVE H [facility] CenterUrine Kxensls1690-03-10 14:51:00* Test Item Value Reference Range Interpretation Comments Urine Nitrite (test code = 61528-9) NEGATIVE NEGATIVE [facility] CenterUrine Blhfhww2740-97-12 14:51:00* Test Item Value Reference Range Interpretation Comments Urine Protein (test code = 5804-0) 1+ NEGATIVE H [facility] CenterUrine Glucose (UA)2018-05-21 14:51:00* Test Item Value Reference Range Interpretation Comments Urine Glucose (UA) (test code = 2349-9) NEGATIVE NEGATIVE [facility] CenterUrine Xfaptqv7968-35-38 14:51:00* Test Item Value Reference Range Interpretation Comments Urine Ketones (test code = 06776-7) TRACE NEGATIVE H [facility] Aihbmhuwsvze4234-94-07 14:51:00* Test Item Value Reference Range Interpretation Comments Urine Urobilinogen (test code = 12531-8) 0.2 0.2-1 [facility] CenterUrine Kdfxtqfzu4001-57-32 14:51:00* Test Item Value Reference Range Interpretation Comments Urine Bilirubin (test code = 1978-6) NEGATIVE NEGATIVE [facility] CenterUrine Qyosa2503-18-62 14:51:00* Test Item Value Reference Range Interpretation Comments Urine Blood (test code = 32499-9) NEGATIVE NEGATIVE [facility] CenterU[facility] ZSD3500-96-07 14:51:00* Test Item Value Reference Range Interpretation Comments Urine WBC (test code = 5821-4) 6-10 0-5 H [facility] CenterUrine DLZ0550-90-85 14:51:00* Test Item Value Reference Range Interpretation Comments Urine RBC (test code = 26331-8) 6-10 0-5 H [facility] CenterUrine Kaqimrpc1638-41-84 14:51:00* Test Item Value Reference Range Interpretation Comments Urine Bacteria (test code = 98811-6) MANY NONE H [facility] CenterUrine Epithelial Dkfsj8288-36-11 14:51:00 * Test Item Value Reference Range Interpretation Comments Urine Epithelial Cells (test code = 61368-5) MANY NONE [facility] CenterUrine Coarse Granular Eyhde2316-73-47 14:51:00* Test Item Value Reference Range Interpretation Comments Urine Coarse Granular Casts (test code = 94943-2) 1-5 >0 H [facility] CenterUrine Coarse Granular Mshva7006-63-14 14:51:00* Test Item Value Reference Range Interpretation Comments Urine Coarse Granular Casts (test code = 02221-3) 1-5 >0 H [facility] Station[facility] Fbvty4130-19-95 14:32:00* Test Item Value Reference Range Interpretation Comments Sodium Level (test code = 2951-2) 136 136-145 [facility] CenterPotassium Lraut5205-74-46 14:32:00* Test Item Value Reference Range Interpretation Comments Potassium Level (test code = 2823-3) 3.9 3.5-5.1 [facility] CenterChloride Mxpvi2266-43-66 14:32:00* Test Item Value Reference Range Interpretation Comments Chloride Level (test code = 2075-0) 103 98-107 [facility] CenterCarbon Dioxide Ngafo2722-90-98 14:32:00* Test Item Value Reference Range Interpretation Comments Carbon Dioxide Level (test code = 2028-9) 19 22-29 L [facility] CenterAnion Vdf9029-09-09 14:32:00* Test Item Value Reference Range Interpretation Comments Anion Gap (test code = 47112-8) 17.9 8-16 H [facility] CenterBlood Urea Wnneylte0930-69-80 14:32:00* Test Item Value Reference Range Interpretation Comments Blood Urea Nitrogen (test code = 3094-0) 27 7-26 H [facility] CenterCreatinine2018-12-27 14:32:00* Test Item Value Reference Range Interpretation Comments Creatinine (test code = 2160-0) 1.55 0.57-1.11 H [facility] CenterBUN/Creatinine Zyndo3659-59-97 14:32:00* Test Item Value Reference Range Interpretation Comments BUN/Creatinine Ratio (test code = 3097-3) 17 6-25 [facility] CenterEstimat Glomerular Filtration Rate 2018-05-21 14:32:00* Test Item Value Reference Range Interpretation Comments Estimat Glomerular Filtration Rate (test code = 151459015) 32 >60 L Ranges were taken from the National Kidney Disease Education Program and the [facility] literature.Reference ranges:60 or greater: Ihiaaj98-48 ( for 3 consecutive months): Chronic kidney disease 15 or less: Kidney failurePal[facility] Medical CenterGlucose Pvbnd5322-43-24 14:32:00* Test Item Value Reference Range Interpretation Comments Glucose Level (test code = IQE9784) 199 74-118 H [facility] CenterCalcium Rhvzt1125-99-83 14:32:00* Test Item Value Reference Range Interpretation Comments Calcium Level (test code = 54126-3) 8.8 8.4-10.2 [facility] CenterTotal Tokgtodfy6960-83-56 14:32:00* Test Item Value Reference Range Interpretation Comments Total Bilirubin (test code = 1975-2) 0.7 0.2-1.2 [facility] CenterAspartate Amino Transf (AST/SGOT) 2018-05-21 14:32:00* Test Item Value Reference Range Interpretation Comments Aspartate Amino Transf (AST/SGOT) (test code = Aspartate Amino Transf (AST/SGOT)) 31 5-34 [facility] CenterAlanine Aminotransferase (ALT/SGPT) 2018-05-21 14:32:00* Test Item Value Reference Range Interpretation Comments Alanine Aminotransferase (ALT/SGPT) (test code = 1742-6) 36 0-55 [facility] CenterTotal Svkwpuc0687-31-34 14:32:00* Test Item Value Reference Range Interpretation Comments Total Protein (test code = 2885-2) 7.3 6.5-8.1 [facility] CenterAlbumin2018-12-27 14:32:00* Test Item Value Reference Range Interpretation Comments Albumin (test code = 1751-7) 3.7 3.5-5.0 [facility] CenterGlobulin2018-12-27 14:32:00* Test Item Value Reference Range Interpretation Comments Globulin (test code = 09882-5) 3.6 2.3-3.5 H [facility] CenterAlbumin/Globulin Uorfa8942-29-37 14:32:00 * Test Item Value Reference Range Interpretation Comments Albumin/Globulin Ratio (test code = 1759-0) 1.0 0.8-2.0 [facility] CenterAlkaline Oecczvfshtu7008-48-68 14:32:00* Test Item Value Reference Range Interpretation Comments Alkaline Phosphatase (test code = 6768-6) 69 40-150 [facility] CenterWhite Blood Fuzff4006-41-19 14:26:00* Test Item Value Reference Range Interpretation Comments White Blood Count (test code = 6690-2) 12.81 4.8-10.8 H [facility] CenterRed Blood Nvohj4468-46-00 14:26:00* Test Item Value Reference Range Interpretation Comments Red Blood Count (test code = 789-8) 4.30 3.6-5.1 [facility] CenterHemoglobin2018-12-27 14:26:00* Test Item Value Reference Range Interpretation Comments Hemoglobin (test code = 01448-3) 13.6 12.0-16.0 [facility] CenterHematocrit2018-12-27 14:26:00* Test Item Value Reference Range Interpretation Comments Hematocrit (test code = 4544-3) 40.6 34.2-44.1 [facility] CenterMean Corpuscular Pjihqj7414-62-66 14:26:00* Test Item Value Reference Range Interpretation Comments Mean Corpuscular Volume (test code = 787-2) 94.4 81-99 [facility] CenterMean Corpuscular Qnjrlctwku7482-74-36 14:26:00* Test Item Value Reference Range Interpretation Comments Mean Corpuscular Hemoglobin (test code = 785-6) 31.6 28-32 [facility] CenterMean Corpuscular Hemoglobin Concent 2018-05-21 14:26:00* Test Item Value Reference Range Interpretation Comments Mean Corpuscular Hemoglobin Concent (test code = 786-4) 33.5 31-35 [facility] CenterRed Cell Distribution Byqhr1992-63-52 14:26:00* Test Item Value Reference Range Interpretation Comments Red Cell Distribution Width (test code = 57006-2) 13.6 11.7 -14.4 [facility] CenterPlatelet Vcwdn2951-67-94 14:26:00* Test Item Value Reference Range Interpretation Comments Platelet Count (test code = 777-3) 254 140-360 [facility] CenterNeutrophils (%) (Auto)2018-05-21 14:26:00 * Test Item Value Reference Range Interpretation Comments Neutrophils (%) (Auto) (test code = 30639-4) 91.9 38.7-80.0 H [facility] CenterLymphocytes (%) (Auto)2018-05-21 14:26:00 * Test Item Value Reference Range Interpretation Comments Lymphocytes (%) (Auto) (test code = 736-9) 3.0 18.0-39.1 L [facility] CenterMonocytes (%) (Auto)2018-05-21 14:26:00* Test Item Value Reference Range Interpretation Comments Monocytes (%) (Auto) (test code = 5905-5) 4.2 4.4-11.3 L [facility] CenterEosinophils (%) (Auto)2018-05-21 14:26:00 * Test Item Value Reference Range Interpretation Comments Eosinophils (%) (Auto) (test code = 713-8) 0.2 0.0-6.0 [facility] CenterBasophils (%) (Auto)2018-05-21 14:26:00* Test Item Value Reference Range Interpretation Comments Basophils (%) (Auto) (test code = 706-2) 0.2 0.0-1.0 [facility] CenterIM GRANULOCYTES %2018-05-21 14:26:00* Test Item Value Reference Range Interpretation Comments IM GRANULOCYTES % (test code = IM GRANULOCYTES %) 0.5 0.0- 1.0 [facility] CenterNeutrophils # (Auto)2018-05-21 14:26:00* Test Item Value Reference Range Interpretation Comments Neutrophils # (Auto) (test code = 751-8) 11.8 2.1-6.9 H [facility] CenterLymphocytes # (Auto)2018-05-21 14:26:00* Test Item Value Reference Range Interpretation Comments Lymphocytes # (Auto) (test code = 35268-2) 0.4 1.0-3.2 L [facility] CenterMonocytes # (Auto)2018-05-21 14:26:00* Test Item Value Reference Range Interpretation Comments Monocytes # (Auto) (test code = 742-7) 0.5 0.2-0.8 [facility] CenterEosinophils # (Auto)2018-05-21 14:26:00* Test Item Value Reference Range Interpretation Comments Eosinophils # (Auto) (test code = 711-2) 0.0 0.0-0.4 [facility] CenterBasophils # (Auto)2018-05-21 14:26:00* Test Item Value Reference Range Interpretation Comments Basophils # (Auto) (test code = 704-7) 0.0 0.0-0.1 [facility] CenterAbsolute Immature Granulocyte (auto 2018-05-21 14:26:00* Test Item Value Reference Range Interpretation Comments Absolute Immature Granulocyte (auto (anjali t code = Absolute Immature Granulocyte (auto) 0.07 0-0.1 [facility] CenterMRI BRAIN XO5494-56-51 11:30:00 [place] [address] Patient Name: YUE RAMSEY MR #: [id number] : 1935 Age/Sex: 82/F Req #: [id number] Adm Physician: Ordered by: SANDRA CHASE MD Report #: [id number] Location: MRI Room/ Bed: Procedure: [id number] MRI/MRI BRAIN WO Exam Date : Exam [...] COPY TO: SANDRA CHASE MD White Blood Tzzae5036-37-69 10:02:00* Test Item Value Reference Range Interpretation Comments White Blood Count (test code = 6690-2) 7.09 4.8-10.8 [facility] CenterRed Blood Cauff6700-66-34 10:02:00* Test Item Value Reference Range Interpretation Comments Red Blood Count (test code = 789-8) 4.60 3.6-5.1 [facility] CenterHemoglobin2018-04-09 10:02:00* Test Item Value Reference Range Interpretation Comments Hemoglobin (test code = 27974-2) 13.9 12.0-16.0 [facility] CenterHematocrit2018-04-09 10:02:00* Test Item Value Reference Range Interpretation Comments Hematocrit (test code = 4544-3) 40.9 34.2-44.1 [facility] CenterMean Corpuscular Eevdzj0821-40-56 10:02:00* Test Item Value Reference Range Interpretation Comments Mean Corpuscular Volume (test code = 787-2) 88.9 81-99 [facility] CenterMean Corpuscular Kygqngxhke9729-97-67 10:02:00* Test Item Value Reference Range Interpretation Comments Mean Corpuscular Hemoglobin (test code = 785-6) 30.2 28-32 [facility] CenterMean Corpuscular Hemoglobin Concent 2017-09-01 10:02:00* Test Item Value Reference Range Interpretation Comments Mean Corpuscular Hemoglobin Concent (test code = 786-4) 34.0 31-35 [facility] CenterRed Cell Distribution Yhrhw2995-94-36 10:02:00* Test Item Value Reference Range Interpretation Comments Red Cell Distribution Width (test code = 05054-5) 13.7 11.7 -14.4 [facility] CenterPlatelet Ghoia9367-20-58 10:02:00* Test Item Value Reference Range Interpretation Comments Platelet Count (test code = 777-3) 235 140-360 [facility] CenterNeutrophils (%) (Auto)2017-09-01 10:02:00 * Test Item Value Reference Range Interpretation Comments Neutrophils (%) (Auto) (test code = 20295-6) 62.1 38.7-80.0 [facility] CenterLymphocytes (%) (Auto)2017-09-01 10:02:00 * Test Item Value Reference Range Interpretation Comments Lymphocytes (%) (Auto) (test code = 736-9) 26.0 18.0-39.1 [facility] CenterMonocytes (%) (Auto)2017-09-01 10:02:00* Test Item Value Reference Range Interpretation Comments Monocytes (%) (Auto) (test code = 5905-5) 7.6 4.4-11.3 [facility] CenterEosinophils (%) (Auto)2017-09-01 10:02:00 * Test Item Value Reference Range Interpretation Comments Eosinophils (%) (Auto) (test code = 713-8) 3.0 0.0-6.0 [facility] CenterBasophils (%) (Auto)2017-09-01 10:02:00* Test Item Value Reference Range Interpretation Comments Basophils (%) (Auto) (test code = 706-2) 1.0 0.0-1.0 [facility] CenterIM GRANULOCYTES %2017-09-01 10:02:00* Test Item Value Reference Range Interpretation Comments IM GRANULOCYTES % (test code = IM GRANULOCYTES %) 0.3 0.0- 1.0 [facility] CenterNeutrophils # (Auto)2017-09-01 10:02:00* Test Item Value Reference Range Interpretation Comments Neutrophils # (Auto) (test code = 751-8) 4.4 2.1-6.9 [facility] CenterLymphocytes # (Auto)2017-09-01 10:02:00* Test Item Value Reference Range Interpretation Comments Lymphocytes # (Auto) (test code = 45789-2) 1.8 1.0-3.2 [facility] CenterMonocytes # (Auto)2017-09-01 10:02:00* Test Item Value Reference Range Interpretation Comments Monocytes # (Auto) (test code = 742-7) 0.5 0.2-0.8 [facility] CenterEosinophils # (Auto)2017-09-01 10:02:00* Test Item Value Reference Range Interpretation Comments Eosinophils # (Auto) (test code = 711-2) 0.2 0.0-0.4 [facility] CenterBasophils # (Auto)2017-09-01 10:02:00* Test Item Value Reference Range Interpretation Comments Basophils # (Auto) (test code = 704-7) 0.1 0.0-0.1 [facility] CenterAbsolute Immature Granulocyte (auto 2017-09-01 10:02:00* Test Item Value Reference Range Interpretation Comments Absolute Immature Granulocyte (auto (anjali t code = Absolute Immature Granulocyte (auto) 0.02 0-0.1 [facility] Stationodium Qytaq7034-42-18 10:02:00* Test Item Value Reference Range Interpretation Comments Sodium Level (test code = 2951-2) 141 136-145 [facility] CenterPotassium Ezaqy4302-75-56 10:02:00* Test Item Value Reference Range Interpretation Comments Potassium Level (test code = 2823-3) 3.7 3.5-5.1 [facility] CenterChloride Wntko5698-93-92 10:02:00* Test Item Value Reference Range Interpretation Comments Chloride Level (test code = 2075-0) 109 98-107 H [facility] CenterCarbon Dioxide Oofoe3521-13-88 10:02:00* Test Item Value Reference Range Interpretation Comments Carbon Dioxide Level (test code = 2028-9) 24 22-29 [facility] CenterAnion Lzi9692-37-69 10:02:00* Test Item Value Reference Range Interpretation Comments Anion Gap (test code = 70785-7) 11.7 8-16 [facility] CenterBlood Urea Xqqgpmbb3345-02-18 10:02:00* Test Item Value Reference Range Interpretation Comments Blood Urea Nitrogen (test code = 3094-0) 20 7-26 [facility] CenterCreatinine2018-04-09 10:02:00* Test Item Value Reference Range Interpretation Comments Creatinine (test code = 2160-0) 1.14 0.57-1.11 H [facility] CenterBUN/Creatinine Ugzfa4236-10-15 10:02:00* Test Item Value Reference Range Interpretation Comments BUN/Creatinine Ratio (test code = 3097-3) 18 6-25 [facility] CenterEstimat Glomerular Filtration Rate 2017-09-01 10:02:00* Test Item Value Reference Range Interpretation Comments Estimat Glomerular Filtration Rate (test code = 17238-1) 46 >60 L Ranges were taken from the National Kidney Disease Education Program and the [facility] literature.Reference ranges:60 or greater: Fbrgvd17-16 ( for 3 consecutive months): Chronic kidney disease 15 or less: Kidney failurePal[facility] Medical CenterGlucose Odpug6376-71-62 10:02:00* Test Item Value Reference Range Interpretation Comments Glucose Level (test code = RZD9085) 146 74-118 H [facility] CenterCalcium Pjnlz0962-96-15 10:02:00* Test Item Value Reference Range Interpretation Comments Calcium Level (test code = 31473-8) 9.2 8.4-10.2 [facility] CenterTotal Uawfdrggh8705-64-81 10:02:00* Test Item Value Reference Range Interpretation Comments Total Bilirubin (test code = 1975-2) 0.7 0.2-1.2 [facility] CenterAspartate Amino Transf (AST/SGOT) 2017-09-01 10:02:00* Test Item Value Reference Range Interpretation Comments Aspartate Amino Transf (AST/SGOT) (test code = Aspartate Amino Transf (AST/SGOT)) 27 5-34 [facility] CenterAlanine Aminotransferase (ALT/SGPT) 2017-09-01 10:02:00* Test Item Value Reference Range Interpretation Comments Alanine Aminotransferase (ALT/SGPT) (test code = 1742-6) 20 0-55 [facility] CenterTotal Ggifazw2683-01-71 10:02:00* Test Item Value Reference Range Interpretation Comments Total Protein (test code = 2885-2) 7.6 6.5-8.1 [facility] CenterAlbumin2018-04-09 10:02:00* Test Item Value Reference Range Interpretation Comments Albumin (test code = 1751-7) 3.8 3.5-5.0 [facility] CenterGlobulin2018-04-09 10:02:00* Test Item Value Reference Range Interpretation Comments Globulin (test code = 42962-7) 3.8 2.3-3.5 H [facility] CenterAlbumin/Globulin Ovrrn1075-84-75 10:02:00 * Test Item Value Reference Range Interpretation Comments Albumin/Globulin Ratio (test code = 1759-0) 1.0 0.8-2.0 [facility] CenterAlkaline Pymzcgjecqj7897-23-12 10:02:00* Test Item Value Reference Range Interpretation Comments Alkaline Phosphatase (test code = 6768-6) 77 40-150 [facility] CenterUrine EHW7903-94-39 10:27:00* Test Item Value Reference Range Interpretation Comments Urine WBC (test code = 5821-4) NONE 0-5 [facility] CenterUrine GSU1125-55-15 10:27:00* Test Item Value Reference Range Interpretation Comments Urine RBC (test code = 64796-1) 0-5 0-5 [facility] CenterUrine Cpdjcyfr9016-73-61 10:27:00* Test Item Value Reference Range Interpretation Comments Urine Bacteria (test code = 36046-1) NONE NONE [facility] CenterUrine Epithelial Gdpcz8802-00-60 10:27:00 * Test Item Value Reference Range Interpretation Comments Urine Epithelial Cells (test code = 47479-7) RARE NONE [facility] CenterUrine Ajyjo7397-55-43 09:20:00* Test Item Value Reference Range Interpretation Comments Urine Color (test code = 5778-6) YELLOW YELLOW [facility] CenterUrine Qgmlxoy5285-27-11 09:20:00* Test Item Value Reference Range Interpretation Comments Urine Clarity (test code = 52413-3) CLEAR CLEAR [facility] Specific Fqrtvzw9056-26-15 09:20:00 * Test Item Value Reference Range Interpretation Comments Urine Specific [place]ry (test code = 5811-5) 1.015 1.010-1.02 5 [facility] CenterUrine jE4223-64-14 09:20:00* Test Item Value Reference Range Interpretation Comments Urine pH (test code = 30194-1) 5 5-7 [facility] CenterUrine Leukocyte Gpsyaoca0889-88-04 09:20:00* Test Item Value Reference Range Interpretation Comments Urine Leukocyte Esterase (test code = 5799-2) NEGATIVE NEGATIVE [facility] CenterUrine Vlfmgku7181-19-79 09:20:00* Test Item Value Reference Range Interpretation Comments Urine Nitrite (test code = 15877-4) NEGATIVE NEGATIVE [facility] CenterUrine Quiovzo5508-24-72 09:20:00* Test Item Value Reference Range Interpretation Comments Urine Protein (test code = 5804-0) NEGATIVE NEGATIVE [facility] CenterUrine Glucose (UA)2017-03-13 09:20:00* Test Item Value Reference Range Interpretation Comments Urine Glucose (UA) (test code = 2349-9) NEGATIVE NEGATIVE [facility] CenterUrine Pfmyccy8616-82-00 09:20:00* Test Item Value Reference Range Interpretation Comments Urine Ketones (test code = 13095-5) NEGATIVE NEGATIVE [facility] CenterUrine Ceqtqlkqiajj1029-58-83 09:20:00* Test Item Value Reference Range Interpretation Comments Urine Urobilinogen (test code = 41925-1) 0.2 0.2-1 [facility] CenterUrine Fcqzaylra5823-57-89 09:20:00* Test Item Value Reference Range Interpretation Comments Urine Bilirubin (test code = 1978-6) NEGATIVE NEGATIVE [facility] CenterUrine Lxamz0096-33-76 09:20:00* Test Item Value Reference Range Interpretation Comments Urine Blood (test code = 01004-1) TRACE NEGATIVE H [facility] CenterBedside Jilihme2748-11-36 02:54:00* Test Item Value Reference Range Interpretation Comments Bedside Glucose (test code = 15068-8) 103 70-120 Meter ID: [id number] [facility] CenterFerritin2017-10-15 14:02:00* Test Item Value Reference Range Interpretation Comments Ferritin (test code = 2276-4) 74.76 4.63-204.00 [facility] CenterIron Boqot9787-32-08 13:46:00* Test Item Value Reference Range Interpretation Comments Iron Level (test code = 2498-4) 82 50-170 [facility] CenterTotal Iron Binding Yplmckjv5417-84-68 13:46:00* Test Item Value Reference Range Interpretation Comments Total Iron Binding Capacity (test code = 2500-7) 244 261-4 78 L [facility] CenterPercent Iron Npkizyutoe5642-64-99 13:46:00* Test Item Value Reference Range Interpretation Comments Percent Iron Saturation (test code = 2502-3) 34 15-50 [facility] CenterTransferrin2017-10-15 13:46:00* Test Item Value Reference Range Interpretation Comments Transferrin (test code = 3034-6) 174 180-382 L [facility] CenterPercent Reticulocyte Zbher5109-25-67 13:30:00* Test Item Value Reference Range Interpretation Comments Percent Reticulocyte Count (test code = 22293-4) 1.6 0.8-2 .2 [facility] Stationtool Occult Ucqcf3752-41-47 09:35:00* Test Item Value Reference Range Interpretation Comments Stool Occult Blood (test code = 2335-8) POSITIVE NEGATIVE H [facility] CenterThyroid Stimulating Hormone (TSH) 2017-03-09 09:10:00* Test Item Value Reference Range Interpretation Comments Thyroid Stimulating Hormone (TSH) (test code = 89391-7) 2.526 0.350-4.940 [facility] CenterTriglycerides Vtfcv2543-38-40 08:52:00* Test Item Value Reference Range Interpretation Comments Triglycerides Level (test code = 2571-8) 200 0-149 H [facility] CenterCholesterol Uccqf6909-67-28 08:52:00* Test Item Value Reference Range Interpretation Comments Cholesterol Level (test code = 2093-3) 109 0-199 Less than 200 mg/dL Low Cwhc038 - 239 mg/dL Borderline Njbi719 m g/dl and greater High Risk [facility] CenterLDL Ljbhvrjeemk5262-98-97 08:52:00* Test Item Value Reference Range Interpretation Comments LDL Cholesterol (test code = 32716-9) 39 60-130 L [facility] CenterHDL Wbmirstekgb1114-05-02 08:52:00* Test Item Value Reference Range Interpretation Comments HDL Cholesterol (test code = 2085-9) 30 40-60 L [facility] CenterCholesterol/HDL Erfqw6491-31-96 08:52:00 * Test Item Value Reference Range Interpretation Comments Cholesterol/HDL Ratio (test code = 9830-1) 3.6 3.0-3.6 [facility] CenterCreatine Kinase MI4931-32-50 00:11:00* Test Item Value Reference Range Interpretation Comments Creatine Kinase MB (test code = 86640-7) 1.10 0.00-5.00 [facility] CenterTroponin I0302-40-00 00:11:00* Test Item Value Reference Range Interpretation Comments Troponin I (test code = XMJ4605) 0.013 0-0.300 [facility] CenterCreatine Zlomun9930-63-26 00:10:00* Test Item Value Reference Range Interpretation Comments Creatine Kinase (test code = 2157-6) 19 29-168 L [facility] CenterAmylase Guvds6611-00-46 13:01:00* Test Item Value Reference Range Interpretation Comments Amylase Level (test code = 1798-8) 77 25-125 [facility] CenterLipase2017-10-14 13:01:00* Test Item Value Reference Range Interpretation Comments Lipase (test code = 3040-3) 93 8-78 H [facility] CenterProthrombin Zbhs4430-56-90 08:11:00* Test Item Value Reference Range Interpretation Comments Prothrombin Time (test code = 5902-2) 14.2 11.9-14.5 [facility] CenterProthromb Time International Ratio 2017-03-08 08:11:00* Test Item Value Reference Range Interpretation Comments Prothromb Time International Ratio (test code = 6301-6) 1.05 Oral Anticoagulant Therapy INR Values:1. Low Intensity Therapy 1.5 - 2.02 . Moderate Intensity Therapy 2.0 - 3.03. High Intensity Therapy(1) 2.5 - 3. 54. High Intensity Therapy(2) 3.0 - 4.05. Panic Value INR > 5.0 [facility] CenterActivated Partial Thromboplast Time 2017-03-08 08:11:00* Test Item Value Reference Range Interpretation Comments Activated Partial Thromboplast Time (test code = 95451-0) 34.5 23.8-35.5 [facility] CenterBlood Vyayawa5435-54-47 17:04:00* Test Item Value Reference Range Interpretation Comments Blood Culture (test code = 10584233) NO GROWTH AFTER 5 DAYS, FINAL REPORT [facility] CenterHepatitis A IgM Lhzrtzvt5053-18-37 06:17:00* Test Item Value Reference Range Interpretation Comments Hepatitis A IgM Antibody (test code = 70586-7) Negative Negativ e [facility] CenterHeson[facility] B Surface Crldroe4938-07-75 06:17:00* Test Item Value Reference Range Interpretation Comments Hepatitis B Surface Antigen (test code = 5196-1) Negative Negat scottie [facility] B Core IgM Iqwaelhj0120-13-01 06:17:00* Test Item Value Reference Range Interpretation Comments Hepatitis B Core IgM Antibody (test code = 19245-4) Negative Ne lissette [facility] C Ofknpqoc6083-05-55 06:17:00* Test Item Value Reference Range Interpretation Comments Hepatitis C Antibody (test code = 98966-1) -0.1 0.0-0.9 Negative: < 0.8 Indeterminate: 0.8 - 0.9 Positive: > 0.9 The CDC recommends that a positive HCV antibody result be followed up with a HCV Nucleic Acid Amplification test (537294).Performed at: [facility] [id number] [place] [address] [id number] Director: Dao Barrera MD, Phone: [phone] [facility] SINGLE (PORTABLE) [place] [address] Patient Name: YUE RAMSEY MR #: [id number] : 1935 Age/Sex: 81/F Req #: [id number] Adm Physician: Ordered by: NEERAJ TIRADO MD Report #: [id number] Location: ER Room/Bed: Procedure: [id number] DX/CHEST SINGLE (PORTABLE) E xam Date: 03/13/17 [...] TO: NEERAJ TIRADO MD CT BRAIN WO [place] [address] Patient Name: YUE RAMSEY MR #: [id number] : 1935 Age/Sex: 81/F Req #: [id number] Adm Physician: Ordered by: NEERAJ TIRADO MD Report #: [id number] Location: ER Room/Bed: Procedure: [id number] CT/CT BRAIN WO Exam Date: Exam Time: [...] ectronically Signed By: PETERSON SCHULTZ MD on 03/13/171114 Transcribed By: GELY on 03/13/171114 COPY TO: NEERAJ TIRADO MD ABDOMEN-1VIEW ([facility]) [place] [address] Patient Name: YUE RAMSEY MR #: [id number] : 1935 Age/Sex: 81/F Req #: [id number] Adm Physicia n: SANDRA CHASE MD Ordered by: MATTHEW GALAVIZ MD Report #: [id number] Loca tion: [facility] Room/Bed: [place] [address] Procedure: [id number] DX/ABDOMEN-1VIEW ([facility]) Exam Date: 03/08/17 Exam Time : 1347 [...] O: MATTHEW GALAVIZ MD US ABDOMEN COMPLETE [place] [address] Patient Name: YUE RAMSEY MR #: [id number] : 1935 Age/Sex: 81/F Req #: [id number] Adm Physician: SANDRA CHASE MD Ordered by: MATTHEW GALAVIZ MD Report #: [id number] Location: [facility] Room/Bed: [place] [address] Procedure: [id number] US/US ABDOMEN COMPLETE Exam Date: Exam Time: [...] COPY TO: MATTHEW GALAVIZ MD MRI MRCP [place] [address] Patient Name: YUE RAMSEY MR #: [id number] : 1935 Age/Sex: 81/F Req #: [id number] Adm Physician: SANDRA CHASE MD Ordered by: ABRAHAM TOLENTINO MD Report #: [id number] Location: [facility] Room/Bed: [facility] Procedure: [id number] MRI/MRI MRCP WO Exam Date: 01/13/17 Exam Time: 0850 REPORT STATUS: Signed EXAM: Magnetic Resonance Cholangiopancreatogr aphy (M.R.C.P.) INDICATION: COMPARISON: Abdominal ultra sound 01/12/2017, abdominal CT 01/12/2017 TECHNIQUE: Multiplanar, multisequence MRCP was performed, with sequences including coronal turbo spin-echo T1-weight ed scans, SSH MRCP scans, coronal spin, coronal MPR 2, SMRCP 3D HR, [facility] MRCP R AI. IV Contrast: None [...] TO: OMID TOLENTINO MD CHEST 2 VIEWS [facility] [address] [place] [address] Patient Name: YUE RAMSEY MR #: [id number] : 1935 Age/Sex: 81/F Req #: [id number] Adm Physician: Ordered by: NEERAJ TIRADO MD Report #: [id number] Location: ER Room/Bed: Procedure: [id number] DX/CHEST 2 VIEWS Exam Date: 01/12/17 Exam [...] TO: NEERAJ TIRADO MD CT ABDOMEN/PELVIS WO [place] [address] Patient Name: YUE RAMSEY MR #: [id number] : 1935 Age/Sex: 81/F Req #: [id number] Adm Physician: Ordered by: NEERAJ TIRADO MD Report #: [id number] Location: ER Room/Bed: Procedure: [id number] CT/CT ABDOMEN/PELVIS WO Exam Date: 01/12/17 Exam [...] 3:44 PM Dictated By: JULIO BYRD MD 43 Transcribed By: GELY on 01/12/171543 COPY TO: NEERAJ TIRADO MD LIVER [place] [address] Patient Name: YUE RAMSEY MR #: [id number] : 1935 Age/Sex: 81/F Req #: [id number] Adm Physician: SANDRA CHASE MD Ordered by: NEERAJ TIRADO MD Report #: [id number] Location: [facility] Room/Bed: [place] [address] Procedure: [id number] US/US LIVER Exam Date: Exam Time: REPORT [...]
--- NOTE | 2020-03-12 14:38 | NUR ---
PT TO THE FLOOR FROM ER. VITALS WNL. PT HAVING PAIN WHEN MOVED OTHERWISE HAS NO COMPLAINTS.
[2020-03-12 14:53] VITALS: BP 138/72
[2020-03-12 15:00] VITALS: BP 138/72
[2020-03-12] MEDS ORDERED: ONDANSETRON HCL INJ 2MG/ML 2ML 2 MG/ML VIAL IV PRN (15:30)
[2020-03-12] MEDS ORDERED: BENZONATATE 100 MG CAP PO PRN (15:30)
[2020-03-12] MEDS ORDERED: ACETAMINOPHEN 325 MG TAB PO PRN (15:30)
[2020-03-12] MEDS ORDERED: GUAIFENESIN/CODEINE 10 ML CUP PO PRN (15:30)
[2020-03-12] MEDS ORDERED: HYDRALAZINE HCL 20 MG/ML VIAL IV PRN (15:30)
[2020-03-12] MEDS ORDERED: DOCUSATE SODIUM 100 MG CAP PO PRN (15:30)
[2020-03-12] MEDS ORDERED: POLYETHYLENE GLYCOL 3350 17 GM PACK PO PRN (15:30)
[2020-03-12 15:46] LABS: BASOPHILS % 0.1 % (0.0-1.0); EOSINOPHILS % 0.2 % (0.0-6.0); HEMATOCRIT 34.7 % (34.2-44.1); HEMOGLOBIN 11.1 g/dL (12.0-16.0); LYMPHOCYTES # (AUTO) 0.8 (1.0-3.2); LYMPHOCYTES % 7.5 % (18.0-39.1); MEAN CORPUSCULAR VOLUME 93.8 fL (81-99); MONOCYTES # (AUTO) 0.7 (0.2-0.8); MONOCYTES % 6.8 % (4.4-11.3); NEUTROPHILS # (AUTO) 8.9 (2.1-6.9); NEUTROPHILS % 84.8 % (38.7-80.0); PLATELET COUNT 175 x10e3/uL (140-360); RED CELL DISTRIBUTION WIDTH 13.2 % (11.7-14.4)
[2020-03-12 15:57] LABS: INR 0.99; PROTHROMBIN TIME 13.6 seconds (11.9-14.5)
[2020-03-12 15:58] LABS: PARTIAL THROMBOPLASTIN TIME 29.1 seconds (23.8-35.5)
[2020-03-12 16:00] VITALS: BP 138/72
[2020-03-12 16:07] LABS: ALBUMIN 3.1 g/dL (3.5-5.0); ALBUMIN/GLOBULIN RATIO 0.9 (0.8-2.0); ANION GAP 13.2 mmol/L (8-16); CALCIUM 9.1 mg/dL (8.4-10.2); CREATININE, SERUM 1.4 mg/dL (0.57-1.11); POTASSIUM 4.2 mmol/L (3.5-5.1)
[2020-03-12] MEDS: SODIUM CHLORIDE 0.9% 1000ML 1,000 ML IV SCH (16:14)
--- NOTE | 2020-03-12 17:55 | Diagnostic Imaging Report ---
EXAMINATION: CHEST SINGLE (PORTABLE) - RIGHT LATERAL DECUBITUS INDICATION: ABNORMAL PORTABLE CHEST XRAY COMPARISON: Same day chest radiograph. FINDINGS: TUBES and LINES: None. LUNGS: Lungs are well inflated. No new consolidation. Unchanged lucent/peripherally sclerotic focus projecting in the left apex, possibly in the bone. PLEURA: No pleural effusion or pneumothorax. HEART AND MEDIASTINUM: The cardiomediastinal silhouette is unremarkable. BONES AND SOFT TISSUES: No acute osseous abnormality. Healing left mid posterior rib fracture. UPPER ABDOMEN: No free air under the diaphragm. IMPRESSION: No evidence of pneumothorax. Signed by: Dr. Casimiro Moe MD on 03/12/2020 5:52 PM
[2020-03-12 20:18] VITALS: BP 134/62
[2020-03-12 20:31] VITALS: BP 134/62
[2020-03-12] MEDS: HYDROCODONE/APAP 5MG-325MG TAB PO PRN (22:33)
[2020-03-12] MEDS: MELATONIN 5 MG TABLET PO PRN (22:33)
[2020-03-13] VITALS (8 sets, daily range): BP systolic 106–166; BP diastolic 50–83
[2020-03-13] MEDS ORDERED: TRAMADOL HCL 50 MG TAB PO PRN (00:15)
[2020-03-13] MEDS ORDERED: PANTOPRAZOLE SOD 40 MG TABEC PO SCH ×2 (00:15→07:30)
[2020-03-13] MEDS: SIMVASTATIN 40 MG TAB PO SCH ×2 (00:45→20:58)
[2020-03-13] MEDS ORDERED: MEMANTINE HCL5 MG PO (02:34)
[2020-03-13] MEDS: SODIUM CHLORIDE 0.9% 1000ML 1,000 ML IV SCH ×3 (03:45→22:40)
--- NOTE | 2020-03-13 04:15 | History and Physical ---
CHIEF COMPLAINT: Syncope. HISTORY OF PRESENT ILLNESS: An 84-year-old female, very poor historian, has baseline dementia apparently came in. Based on the story by the nursing staff in the ED after having a mechanical fall. What I was told by the ED note was the patient was apparently walking and then fell to the ground, had a laceration to the right side of the head with some bleeding. No loss of consciousness according to the report. No cough, congestion, or any fever. The patient was then brought in and found to have a laceration in the right scalp area. The patient was stable during my evaluation. REVIEW OF SYSTEMS: Pertinent positives; mechanical fall. The rest of 14-point review of systems unable to obtain. ALLERGIES: PENICILLIN. MEDICATIONS: Alendronate, aspirin, Colace, gabapentin, levothyroxine, metoprolol, nifedipine ER, fish oil, Protonix, lovastatin, thiamine, and tramadol. PAST MEDICAL HISTORY: Baseline dementia, neuropathy, hypothyroidism, and hypertension. PAST SURGICAL HISTORY: Unable to obtain. FAMILY HISTORY: Unable to obtain. SOCIAL HISTORY: Unable to obtain. PHYSICAL EXAMINATION: VITAL SIGNS: Temperature 99.4, pulse 60, respiratory rate 21, blood pressure 134/60, pulse ox 98% on nasal cannula. GENERAL: Not in acute distress, alert and oriented x3, cooperative on examination. HEENT: Normocephalic, atraumatic. Eyes; pupils are equal, round, and reactive to light bilaterally. Extraocular movements are intact. Throat; no evidence of erythema or exudates in the posterior pharynx. Poor dentition. NECK: Supple. Good range of motion. PULMONARY: Clear to auscultation bilaterally. No wheezing, rales or rhonchi. No crackles appreciated. CARDIOVASCULAR: Positive S1, S2. No murmurs, rubs, or gallops. ABDOMEN: Soft, nondistended, nontender to palpation. Bowel sounds present. MUSCULOSKELETAL: Unable to assess. NEUROLOGIC: Unable to assess. LABORATORY FINDINGS: White count 10.5, hemoglobin 11, hematocrit 34.7, platelets of 175,000. Chemistry reviewed, seems to be stable. CK within normal range. Lactic acid was 1.8, ecilm-hm-lafb glucose 110. Coagulation; PT 13.6, INR 0.99, PTT 29.9. Coronavirus is pending. Microbiology; blood and urine cultures are pending. IMAGING STUDIES: CT brain, no acute findings. CT cervical spine, no acute cervical spine post traumatic abnormalities. Chronic degenerative changes as described above. Chest x-ray, there is in the left lung apex. They recommend an AP chest x-ray, which has been ordered. Pelvic x-ray, no evidence of any acute fracture misalignment. Mild degenerative changes of the bilateral hips and pubic symphysis. Bilateral hypodensities likely related to soft tissue calcification overlying the pelvis. Repeat chest x-ray, AP and lateral no evidence of pneumothorax. IMPRESSION: 1. Syncopal episode likely mechanical fall in nature. 2. Hypertension. 3. Hypothyroidism. PLAN: At this time, trend cardiac enzymes. EKG shows no acute findings. Cardiology has been consulted. MRI of the brain ordered. Carotid ultrasound, 2D echo and Neurology has been consulted. Restart home medications. Aspirin for preventative measures. after MRI of the brain was found to be normal. MD PASTOR Taveras/MODL /[id number]
[2020-03-13] MEDS: HYDROCODONE/APAP 5MG-325MG TAB PO PRN ×2 (05:17→20:58)
[2020-03-13 05:25] LABS: BASOPHILS % 0.4 % (0.0-1.0); EOSINOPHILS # (AUTO) 0.3 (0.0-0.4); EOSINOPHILS % 4.9 % (0.0-6.0); HEMATOCRIT 33.1 % (34.2-44.1); HEMOGLOBIN 10.7 g/dL (12.0-16.0); LYMPHOCYTES # (AUTO) 1.4 (1.0-3.2); LYMPHOCYTES % 19.9 % (18.0-39.1); MEAN CORPUSCULAR HEMOGLOBIN 30.8 pg (28-32); MEAN CORPUSCULAR HGB CONC 32.3 g/dL (31-35); MEAN CORPUSCULAR VOLUME 95.4 fL (81-99); MONOCYTES # (AUTO) 0.6 (0.2-0.8); MONOCYTES % 8.6 % (4.4-11.3); NEUTROPHILS # (AUTO) 4.5 (2.1-6.9); NEUTROPHILS % 65.9 % (38.7-80.0); PLATELET COUNT 157 x10e3/uL (140-360); RED BLOOD COUNT 3.47 x10e6/uL (3.6-5.1); RED CELL DISTRIBUTION WIDTH 13.6 % (11.7-14.4)
[2020-03-13 05:59] LABS: MAGNESIUM 2.2 MG/DL (1.3-2.1); PHOSPHORUS 3.4 MG/DL (2.3-4.7)
[2020-03-13] MEDS ORDERED: LEVOTHYROXINE SODIUM 75 MCG TAB PO SCH ×2 (06:00→07:30)
[2020-03-13 06:15] LABS: CREATINE KINASE MB 0.8 ng/mL (0-5.0)
[2020-03-13 06:44] LABS: ALBUMIN 2.7 g/dL (3.5-5.0); ALBUMIN/GLOBULIN RATIO 0.8 (0.8-2.0); ANION GAP 12.1 mmol/L (8-16); CALCIUM 8.2 mg/dL (8.4-10.2); CREATININE, SERUM 1.29 mg/dL (0.57-1.11); POTASSIUM 4.1 mmol/L (3.5-5.1)
--- NOTE | 2020-03-13 08:54 | Consultation ---
DATE OF CONSULTATION: 03/13/2020 Neurology Consultation. Ms. Julia Feliz is an 84-year-old female, right handed, who reports that she fell at home. She was stripped mechanically. She does not lose consciousness. She did hit her head. Did not convulse. She states that she was walking and . She did not lose consciousness. She is brought in because of mechanical fall and laceration. REVIEW OF SYSTEMS: Denies everything. HOME MEDICATIONS: She is on aspirin, Colace, gabapentin, metoprolol, nifedipine, Protonix, and thiamin. PAST MEDICAL HISTORY: Includes dementia, hypertension, and neuropathy. PAST SURGICAL HISTORY: Negative. PHYSICAL EXAMINATION: VITAL SIGNS: Temperature is 99.4, heart rate is 68, blood pressure 134/62. HEENT: Her exam shows laceration on the right side of her head, the cranium and . Extraocular muscles intact. Her face is symmetric. Speech is clear. There is no nuchal rigidity. Oral mucosa is moist. CARDIOVASCULAR: Regular rate and rhythm. PULMONARY: Clear to auscultation. ABDOMEN: Soft. Strength is 4-/5 in uppers and 5/5 on lowers on my exam. Reflexes are diminished, but present. There is no ataxia. ASSESSMENT/PLAN: Ms. Feliz comes in for a mechanical fall. No evidence of intracranial bleed. No evidence or history of seizures or convulsions. Neurologically, the patient is doing really well. I think it is okay to be discharged and have followup with outpatient Neurology in 2 to 3 weeks for a post traumatic evaluation. Otherwise, . MD RAMU SANTIAGO/GROVER /[id number]
[2020-03-13] MEDS ORDERED: SIMVASTATIN 40 MG TAB PO SCH (09:00)
[2020-03-13] MEDS ORDERED: METOPROLOL SUCCINATE 50 MG TAB XL PO SCH (09:00)
[2020-03-13] MEDS: THIAMINE HCL 100 MG TAB PO SCH (09:49)
[2020-03-13] MEDS: PANTOPRAZOLE SOD 40 MG TABEC PO SCH ×2 (09:49→20:58)
--- NOTE | 2020-03-13 09:55 | NUR ---
DAY 1 OBS; NEAR SYNCOPE. SENT TO R1 FOR LOC DETERMINATION.
[2020-03-13] MEDS ORDERED: CLONIDINE HCL 0.1 MG TAB PO PRN (11:30)
[2020-03-13 13:28] LABS: CREATINE KINASE MB 1.2 ng/mL (0-5.0)
--- NOTE | 2020-03-13 14:17 | Consultation ---
DATE OF CONSULTATION: Cardiac Consultation REASON FOR THE CONSULTATION: Fall/ laceration on the right front. HISTORY OF PRESENT ILLNESS: An 84-year-old lady, who is known to our service. She is known with hypertension, renovascular hypertension, renal artery stenosis status post left renal stent, hypothyroidism, history of ovarian cancer, sick sinus syndrome, and early dementia. The patient in August 2019, she had pacemaker implantation. The patient doing relatively the same. She is very forgetful. She cannot give much of information. She is taken care by her . The patient came to the emergency room after she was walking and she fell to the ground. She had laceration on the right side of the head with some bleeding. As per nursing staff and the records, there are no loss of consciousness. There is no seizure activity. There is laceration of the right scalp area. Cardiac consultation is obtained. Of note, the patient's lab work showed normal troponin. Her hemoglobin at 10.7 and hematocrit 33%. Her chest x-ray showed no abnormality, i.e., normal heart size. CT head showed no acute changes and other x-ray of the body as per report. Cardiac consultation is obtained. I visited with the patient. She cannot give much of information. She is really truly demented. HOME MEDICATIONS: Atenolol 100 mg daily, simvastatin 20 mg a day, gabapentin 300 mg a day, levothyroxine 125 mcg a day, Macrobid one tablet twice a day. ALLERGIES: PENICILLIN AND CODEINE. PAST MEDICAL HISTORY: 1. Dual-chamber pacemaker in August 2019. 2. Hypertension. 3. Left renal stent in 2002, Omnilink 5 x 18. 4. Right renal stent. 5. Ovarian cancer, treated with chemotherapy in 1973. 6. Hypothyroidism. 7. Early dementia. 8. Rectal fistulectomy in May 2019. 9. Complication in May 2019 with abscess and surgery. 10. Right and left cataract surgery. 11. Hysterectomy. 12. Left knee replacement 2006 after left knee arthroscopic surgery in 2005. 13. Right knee replacement in 2009. SOCIAL HISTORY: She is . She stopped smoking more than 50 years ago. She does not drink alcohol. 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 Unfortunately, she is very forgetful and her take excellent care of her. FAMILY HISTORY: Father of dementia in his 70s. Mother also of dementia in her 70s. Seven siblings at least one of them with coronary artery disease. Two healthy children, one son, one daughter. REVIEW OF SYSTEMS: Unable to get, however, that is from the nursing staff and the note. GENERAL: No fever. No chills. HEENT: No hearing problem. No vision problem. PULMONARY AND CARDIAC: No active symptoms. Basically baseline easy fatigability and shortness of breath on exertion. GI: Constipation. : Increased frequency of urination. MUSCULOSKELETAL: Knee pain. NEUROLOGY: No seizure activity. PSYCHIATRIC: The patient is very forgetful. PHYSICAL EXAMINATION: VITAL SIGNS: Height of 5 feet 4 inches, weight of 135 pounds, blood pressure 120/50, heart rate of 70, and respiratory rate of 18. HEENT: Pupils are equal and reactive. There is evidence of trauma to the right side of the head. NECK: No elevation of jugular venous pulsation. CHEST: Pacemaker is in place. Clear to auscultation and percussion. HEART: PMI 5th left intercostal space. Normal first and second heart sounds. ABDOMEN: Soft with good bowel sounds. EXTREMITIES: No cyanosis. No clubbing. No edema. NEUROLOGIC: The patient is very forgetful, but able to move all extremities. LABORATORY DATA: Sodium of 141, potassium 4.1, BUN of 19, creatinine of 1.3, and glucose of 102. White blood cell count of 6.8, hemoglobin 10.7, and hematocrit 33%. Chest x-ray and CT as per above. EKG showing sinus rhythm, spike of atrial activity noted. IMPRESSION AND PLAN: 1. Mechanical fall. 2. Dementia. 3. Sick sinus syndrome, status post pacemaker implantation. 4. Hypertension. 5. Repeated fall. 6. Hypothyroidism. 7. Debility. From a cardiac point of view, again we will check her pacemaker. We are going to recommend to liberalize her blood pressure and only to continue on atenolol 100 mg a day as per attached list. Pending on the evaluation of her pacemaker and her course, further steps to be done. MD RABIA Brand/GROVER /[id number] SADE
--- NOTE | 2020-03-13 15:28 | Diagnostic Imaging Report ---
Bilateral knees, 3 views each INDICATION: ^pain, fall ^20200313 ^1440 Comparison: None available. 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 Bilateral arthroplasties demonstrate anatomic postsurgical alignment. Small left and trace right suprapatellar joint effusions are noted. No grossly displaced fracture or dislocation is noted. No evidence of hardware malfunction or loosening. Slight notching of the anterior distal femur is noted on the left, likely incidental. 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 Slight notching of the distal left anterior femur is noted. Negative for acute displaced fracture of the adjacent osseous structures. Small bilateral suprapatellar joint effusions are noted, nonspecific. Signed by: Marcello Gil MD on 03/13/2020 3:25 PM
--- NOTE | 2020-03-13 18:18 | NUR ---
PT PULLED OUT IV, CLIMBING OUT OF BED, STATES SHE IS "GOING HOME." RECEIVED APPROVAL FOR DAUGHTER TO COME SIT WITH PATIENT.
[2020-03-13] MEDS: MELATONIN 5 MG TABLET PO PRN (20:58)
[2020-03-13] MEDS ORDERED: DONEPEZIL HCL 5 MG TAB PO SCH (21:00)
[2020-03-13] MEDS ORDERED: NIFEDIPINE CR 30 MG TAB PO SCH (21:00)
[2020-03-14] VITALS (8 sets, daily range): BP systolic 116–206; BP diastolic 59–88
--- NOTE | 2020-03-14 01:04 | Progress Note ---
DATE: 03/13/2020 Medicine Progress Note SUBJECTIVE: The patient is doing well today with no complaints. Not working with physical therapy very well. No overnight events. PHYSICAL EXAMINATION: VITAL SIGNS: Temperature is 99.4, pulse 50, respiratory rate is 18, blood pressure was 149/83, and pulse ox 92% on room air. LABORATORY DATA: CBC stable. Chemistry reviewed, stable. Troponins were negative. Coagulation normal. Coronavirus is pending. MICROBIOLOGY: None. IMAGING STUDIES: CT brain negative. CT cervical spine negative. Chest x-ray noted. Repeat chest x-ray noted to be negative for any pneumothorax. Pelvic x-ray negative. Knee x-rays shows postsurgical change from the bilateral knee arthroplasties without evidence of hardware malfunction or loosening. Slight notching of the distal left anterior femur is noted. Negative for acute displaced fracture that adjacent osseous structures. Small bilateral suprapatellar joint effusions are noted. OBJECTIVE: GENERAL: In no acute distress. Alert and oriented x3. PULMONARY: Clear to auscultation bilaterally. No wheezing, rales, or rhonchi. No crackles appreciated. CARDIOVASCULAR: Positive S1 and S2. No murmurs, rubs, or gallops. GI: Abdomen is soft, nondistended, and nontender to palpation. Bowel sounds present. MUSCULOSKELETAL: Strength 5/5 throughout. IMPRESSION: 1. Syncopal episode, likely mechanical in nature. 2. Generalized weakness at baseline. 3. Hypertension. 4. Hypothyroidism. PLAN: 2D echo found to be in normal range. Cardiac enzymes are negative. Cardiology is following. As per Neurology, the patient could not get an MRI of the brain due to pacemaker placement. I read neurology's note, no further workup needed likely mechanical in nature. Continue same plan of care and monitor very closely. PT/OT worked with the patient. The patient reported some knee pain. Bilateral x-rays of the knee was found to be negative. The patient will likely benefit from halfway, but does not seem she is interested. The only option is going home with home health home PT. MD PASTOR Taveras/REMINGTONL /[id number]
[2020-03-14] MEDS ORDERED: LEVOTHYROXINE SODIUM 125 MCG TAB PO SCH (06:00)
[2020-03-14] MEDS: HYDROCODONE/APAP 5MG-325MG TAB PO PRN (06:05)
[2020-03-14] MEDS ORDERED: LIDOCAINE 4% PATCH TP SCH (09:00)
[2020-03-14] MEDS ORDERED: ATENOLOL 100 MG TAB PO SCH (09:00)
[2020-03-14] MEDS: THIAMINE HCL 100 MG TAB PO SCH (09:15)
[2020-03-14] MEDS: PANTOPRAZOLE SOD 40 MG TABEC PO SCH (09:15)
--- NOTE | 2020-03-14 09:37 | NUR ---
CM MET W PT AT THE BEDSIDE W NURSE; POONAM / MARY. DISCUSSED DC PLAN. PT STATES SHE JUST NEEDS TO SEE A DOCTOR FOR HER LEG. STATES SHE LIVES AT HOME W HER AND WOULD LIKE TO RETURN HOME. DISCUSSED SNF AN OPTION. POONAM STATES PT IS OFTEN CONFUSED AND RECOMMENDED CM SPEAK W THE . PT OK W CM SPEAKING W HER . CALL TO REA RAMSEY @ [phone]. STATES THE PT WAS INDEPENDENT PRIOR TO ADMISSION. STATES SHE HAS A WALKER IN THE GARAGE. DISCUSSED SNF / REHAB AN OPTION STATES HE WAS NOT ABLE TO LIFT HER ON HIS OWN. STATES HIS DTR WORKS AT A NICE FACILITY AND WOULD LIKE FOR HER TO GO THERE, BUT DID NOT REMEMBER THE NAME. PT'S DTR, KIMBERLY CALLED. SHE WORKS AT [employer] @ OFF: [phone] / FAX: [phone]; MICHAEL IS THE LIASON. STATES SHE AND HER FATHER HAD SPOKEN ABOUT THE PT GOING THERE AND WERE IN AGREEMENT. STATES SHE WAS ALREADY GETTING A BED READY FOR HER. INFORMED HER CM WILL F/U W HER DAD AND GET ORDER FROM MARGARITA. VERBALIZED UNDERSTANDING. CALL TO MR RAMSEY. HE WAS IN AGREEMENT W PT GOING TO [employer]. CALL TO DR. AVILA FOR SNF EVAL AND TRANSFER.
--- NOTE | 2020-03-14 09:48 | NUR ---
no acute overnight events vs 99.4 58 149/83 aox3 calm eomi perrl laceration right head, cdi no nuchal rigidity rrr cta abdo soft 4+/5 in all 4 no ataxia a/p mechanical fall-pt ot gait training neuropathy - outpt eval and workup no acute neurological interventions
--- NOTE | 2020-03-14 11:00 | NUR ---
FAXED CLINICALS TO [facility] HAVE PER NOTES
--- NOTE | 2020-03-14 11:30 | NUR ---
RECEIVED PATIENT IN BED. RESPIRATIONS EVEN AND UNLABORED. NO COMPLAINTS OF PAIN AT THIS TIME. IV INFUSING AT 75 ML/HR. TELE APPLIED. CALL LIGHT WITHIN REACH.
--- NOTE | 2020-03-14 12:21 | NUR ---
HALFWAY FACILITY DISCHARGE INFORMATION PATIENT HAS BEEN ACCEPTED TO: NAME:CHARLEE PALAFOX ADDRESS:[address] ACCEPTING MILL SET UP:[place] MD: [place] ROOM:201 NURSE CALL REPORT TO: [phone] IMM SIGNED AND OBTAINED (if applicable): IMM THE FOLLOWING DOCUMENTS MUST ACCOMPANY PATIENT FOR TRANSFER: COPIED CHART: PACKET AT STATION
[2020-03-14 15:01] LABS: BILIRUBIN,URINE NEGATIVE (NEGATIVE); CLARITY,URINE SL CLOUDY (CLEAR); COLOR,URINE YELLOW (YELLOW); KETONES,URINE 1+ (NEGATIVE); LEUKOCYTE ESTERASE ,URINE SMALL (NEGATIVE); NITRITE,URINE NEGATIVE (NEGATIVE); PROTEIN,URINE DIPSTICK TRACE (NEGATIVE); URINE UROBILINOGEN 0.2 mg/dL (0.2 - 1)
[2020-03-14 15:13] LABS: BACTERIA,URINE FEW /HPF; EPITHELIAL CELLS,URINE MODERATE /LPF
--- NOTE | 2020-03-14 19:38 | NUR ---
DISCHARGE REPORT GIVEN TO OSKAR RODRIGUEZ AT [facility] AT 1730. PATIENT DISCHARGED TO [facility] TO ROOM 201. PATIENT OFF OF THE UNIT AT 1850 BY AMBULANCE WITH 2 PERSONNEL. RESPIRATIONS EVEN AND BREATHING UNLABORED. IV REMOVED WITH TIP INTACT. TRANSFERRED PACKET GIVEN TO EMS. ALL PERSONAL ITEMS TAKEN WITH PATIENT AND EMS.
== END 2020-03-14 18:53 | disposition home or self-care (01) ==
LOC: ER 10:15 → ERHOLD 12:57 → MED/SURG2 14:40
PROVIDERS: ADMIT Internal Medicine; ATTEND Internal Medicine
DX: R55 Syncope and collapse (principal); S01.81XA Laceration without foreign body of other part of head, initial encounter; I10 Essential (primary) hypertension; E03.9 Hypothyroidism, unspecified; Z87.440 Personal history of urinary (tract) infections; K21.9 Gastro-esophageal reflux disease without esophagitis; G62.9 Polyneuropathy, unspecified; Z95.810 Presence of automatic (implantable) cardiac defibrillator; Z88.0 Allergy status to penicillin; F03.90 Unspecified dementia, unspecified severity, without behavioral disturbance, psychotic disturbance, mood disturbance, and anxiety; Z91.81 History of falling; W18.30XA Fall on same level, unspecified, initial encounter; Y93.01 Activity, walking, marching and hiking; I49.5 Sick sinus syndrome; R53.81 Other malaise
CPT/HCPCS: 12014; 36415 ×2; 70450; 71045; 72125; 72170; 73562; 80053 ×2; 81001; 82550 ×2; 82553 ×2; 82948; 83605; 83735; 84100; 84484 ×2; 85025 ×2; 85610; 85730; 87086; 93005; 93306; 93880; 96360; 96361; 97139 ×2; 97161; 97530 ×2; 99251; 99284; G0378 ×3; J2060; J2270; J2405; J3411 ×2; J7030 ×3; S0164 ×2; U0002

== ENCOUNTER 2020-04-26 16:17 | Emergency (ER) | payer MEDICARE ==
[~2020-04-26] VITALS: Ht 162.6 cm; Wt 61.2 kg
[~2020-04-26 16:17] MED LIST changes: +MEMANTINE HCL5 MG PO
--- NOTE | 2020-04-26 16:40 | NUR ---
In triage, patient's expressed desire to take the patient home and stated that she was doing fine now. Dr. Gil informed the patient that he would like to do a workup for the stated complaint but the insisted on going home. Patient and advised to return to the ER immediately if anything changes or symptoms worsen.
--- NOTE | 2020-04-26 16:46 | Emergency Department Note ---
History of Present Illnes History of Present Illness Chief Complaint: General Medicine Complaints History of Present Illness This is a 84 year old female Chief Complaint Comment Patient in from home with complaints of dizziness and weakness that started today. Patient reports that when she first gets out of bed in the morning she gets dizzy. Patient has a long history of these kinds of complaints and was on Meclizine 25mg q8h as needed for dizziness but was taken off of that medication and many others on 04/07/2020. Patient is forgetful and has a history of dementia but was also taken off of aricept and namenda on 04/07/2020. reports that the patient took a nap today and upon waking up had to use the rest room and she needed help to get out of bed. Historian: Patient, Family Member Arrival Mode: Car [place] Required: No Onset (how long ago): hour(s) (1) Location: Generalized Quality: weakness Radiation: Reports non-radiation Severity: unable to specify Onset quality: sudden Duration (how long): hour(s) (1) Timing of current episode: unable to specify Progression: resolved Chronicity: recurrent Context: Denies recent illness, Denies recent surgery Relieving factors: none Associated symptoms: Reports denies other symptoms Treatments prior to arrival: none Past Medical/Family History Physician Review I have reviewed the patient's past medical and family history. Any updates have been documented here. Past Medical History Recent Fever: No Clinical Suspicion of Infectio: No New/Unexplained Change in Ment: No Past Medical History: Hypertension, Hypothyroidism, UTI's, GERD, Osteoarthritis Other Medical History: Gout Neuropathy Ovarian/Cervical cancer Past Surgical History: Hysterectomy, Pacer/AICD Other Surgery: Renal artery stent Knee replacement Social History Smoking Cessation: Never Smoker Counseling Performed: No Alcohol Use: None Any Illegal Drug Use: No Other Last Tetanus: OOD Any Pre-Existing Lines (PICC,: No Review of Systems Review of Systems Constitutional: Reports no symptoms EENTM: Reports no symptoms Cardiovascular: Reports no symptoms Respiratory: Reports no symptoms Gastrointestinal: Reports no symptoms Genitourinary: Reports no symptoms Musculoskeletal: Reports no symptoms Integumentary: Reports no symptoms Neurological: Reports no symptoms Psychological: Reports no symptoms Endocrine: Reports no symptoms Hematological/Lymphatic: Reports no symptoms Physical Exam Related Data Allergies: Coded Allergies: Penicillins (Verified Allergy, Mild, 11/10/18) Triage Vital Signs Vital Signs Date Time Temp Pulse Resp B/P (MAP) Pulse Ox O2 Delivery O2 Flow Rate FiO2 04/26/20 16:21 98.3 62 18 196/79 100 Room Air Vital signs reviewed: Yes Physical Exam CONSTITUTIONAL Constitutional: Present well-developed, Present well-nourished HENT HENT: Present normocephalic, Present atraumatic, Present oropharynx clear/moist, Present nose normal HENT L/R: Present left ext ear normal, Present right ext ear normal EYES Eyes: Reports PERRL, Reports conjunctivae normal NECK Neck: Present ROM normal PULMONARY Pulmonary: Present effort normal, Present breath sounds normal CARDIOVASCULAR Cardiovascular: Present regular rhythm, Present heart sounds normal, Present capillary refill normal, Present normal rate GASTROINTESTINAL Abdominal: Present soft, Present nontender, Present bowel sounds normal GENITOURINARY Genitourinary: Present exam deferred SKIN Skin: Present warm, Present dry MUSCULOSKELETAL Musculoskeletal: Present ROM normal NEUROLOGICAL Neurological: Present alert, Present oriented x 3, Present no gross motor or sensory deficits PSYCHOLOGICAL Psychological: Present mood/affect normal, Present judgement normal Assessment & Plan Medical Decision Making MDM 84 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 She now is asymptomatic. I discussed concerns for stroke versus heart attack among other etiologies. The patient and has been no longer wish to have a workup performed and would like to go home. I discussed the generally do perform a more extensive workup. Patient and family declined and again strict return precautions. Patient was stable prior to discharge. Assessment & Plan Final Impression: (1) Weakness Depart Disposition: HOME, SELF-CARE Last Vital Signs Date Time Temp Pulse Resp B/P (MAP) Pulse Ox O2 Delivery O2 Flow Rate FiO2 04/26/20 16:21 98.3 62 18 196/79 100 Room Air Home Meds Reported Medications Memantine HCl (Memantine HCl) 5 Mg Tablet, 5 MG PO DAILY 03/13/20 Levocetirizine Dihydrochloride (LEVOCETIRIZINE DIHYDROCHLORIDE) 5 Mg Tablet, 5 MG PO HS 11/06/19 Metoprolol Succinate (METOPROLOL SUCCINATE) 50 Mg Tab.er.24h, 50 MG PO DAILY, MG 11/06/19 Minocycline Hcl (MINOCYCLINE HCL) 50 Mg Capsule, 100 MG PO BID for PRO, #60 TAB 09/01/19 Donepezil Hcl (DONEPEZIL HCL) 10 Mg Tablet, 10 MG PO HS 08/31/19 [Folic acid] No Conflict Check, 1 MG PO DAILY 08/31/19 Thiamine HCl (B-1) 100 Mg Tablet, 100 MG PO DAILY 08/31/19 Ubidecarenone (COQ-10) 100 Mg Capsule, 100 MG PO DAILY 08/31/19 Levothyroxine Sodium (LEVOTHYROXINE SODIUM) 75 Mcg Tablet, 75 MCG PO DAILY, #30 TAB 08/31/19 [place]-3 Fatty Acids/Fish Oil (OME[place] 3 FISH OIL SOFTGEL) 1 Each Capsule.dr, 1000 MG PO DAILY 06/03/19 Tramadol Hcl* (ULTRAM 50MG*) 50 Mg Tab, 50 MG PO TID PRN for MODERATE PAIN (4- 6), TAB 06/03/19 Docusate Sodium (COLACE) 100 Mg Cap, 100 MG PO DAILY PRN for CONSTIPATION, #30 CAP 06/03/19 Vit C/E/Zn/Coppr/Lutein/Zeaxan (Preservision Areds 2 Softgel) 1 Each Capsule, 1 CAP PO DAILY 06/03/19 Pantoprazole Sodium* (PROTONIX) 40 Mg Tablet.dr, 40 MG PO Q12H, TAB 06/03/19 Nifedipine (NIFEDIPINE ER) 30 Mg Tab.er.24, 30 MG PO HS 06/03/19 Rosuvastatin Calcium (CRESTOR) 10 Mg Tab, 10 MG PO DAILY THERAPEUTICALLY SUBSTITUTED WITH SIMVASTATIN 40MG 03/08/17 Gabapentin (GABAPENTIN) 100 Mg Capsule, 100 MG PO TID 03/08/17 Alendronate Sodium (ALENDRONATE SODIUM) 70 Mg Tablet, 70 MG PO weekly 08/03/14 Aspirin (ASPIRIN) 81 Mg Tab.chew, 2 TAB PO DAILY 12/12/13 ANNAMARIE BLAIR MD Apr 26, 2020 16:46
--- OUTSIDE RECORDS SUMMARY | 2020-04-26 17:04 | XMS REPORT | Continuity of Care Document ---
Author Author [facility] t Organization [facility] Address 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 Name Role Phone RENA FERMIN, MD Julio FLORES PCP DATANVI, Vel JIRIES Attphys Unavailable Susi GREER Attphys Unavailable CHASE, Julio SANDRA Attphys Unavailable Jimmy GAGNON Attphys Unavailable SHAILA LANDA Attphys Unavailable Kurt BROWN Attphys Unavailable CELESTE, Susi BLEVINS Attphys Unavailable CANDIDA, David PICKARD Attphys Unavailable DAHU, S JIRIES Admphys Unavailable CHASE, Julio SANDRA Admphys Unavailable Payers Payer Name Policy Type Policy Number Effective Date Expiration Date Vel childs PHILLY [id number] 2019 00:00:00 [facility] Medicare A & B [id number] 2002 00:00:00 [facility] Cdc Review [id number] [facility] Problems Condition Name Condition Details Condition Category Status Onset Date Resolution Date Last Treatment Date Treating Clinician Comments Source 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 Active 2014-08-03 00:00:00 [facility] Angioedema Angioedema Problem Active 2014-05-10 00:00:00 [facility] Swelling of submandibular region Submandibular swelling Problem Active 2014-05-10 00:00:00 [facility] Altered mental status Altered mental state Problem Active [facility] Urinary tract infection UTI (urinary tract infection) Problem Active [facility] Elevated liver enzymes Elevated liver enzymes Problem Active [facility] Diarrhea Diarrhea Problem Active [facility] Vomiting Vomiting Problem Active [facility] Atrial fibrillation with rapid ventricular response At rial fibrillation with RVR Problem Active [facility] New onset atrial fibrillation New onset a-fib Problem Active [facility] Syncope and collapse Syncope and collapse Problem Active [facility] Chest pain Chest pain Problem Active [facility] Increased serum lipase level Elevated lipase Problem Active [facility] Hypertensive urgency Hypertensive urgency Problem Active [facility] Symptomatic bradycardia Symptomatic bradycardia Problem Active [facility] Weakness Weakness Problem Active [facility] Pre-syncope Problem Active [facility] Fall Problem Active [facility] Dizziness Problem Active [facility] Fracture of rib Problem Active [facility] Renal insufficiency Problem Active [facility] Allergies, Adverse Reactions, Alerts Allergy Name Allergy Type Status Severity Reaction(s) Onset Date Inacti ve Date Treating Clinician Comments Source Penicillin Allergy to substance Active Mild 2018-11-10 00:00:00 [facility] Social History Social Habit Start Date Stop Date Quantity Comments Source Sex Ass[birth year] At 1935 00:00:00 1935 00:00:00 Female [facility] Medications Ordered Medication Name Filled Medication Name Start Date Stop Da te Current Medication? Ordering Clinician Indication Dosage Frequency Signature (SIG) Comments Components Source Nitrofurantoin Monohyd/M-Cryst (Macrobid 100 Mg Capsul e) 100 Mg CAPSULE Nitrofurantoin Monohyd/M-Cryst (Macrobid 100 Mg Capsule) 100 Mg CAPSULE 2019-04-24 10:02:00 2019-07-02 00:00:00 No 100 Twice A Day [facility] Alendronate Sodium Alendronate Sodium Yes 70 We ekly [facility] Aspirin Aspirin Yes 2 Daily [facility] Docusate Sodium (Colace) 100 Mg CAP Docusate Sodium (Colace) 100 Mg C AP Yes 100 Daily as needed for Constipation [facility] Donepezil Hcl Donepezil Hcl Yes 10 Bedtime [facility] Folic Acid Folic Acid Yes 1 Daily [facility] Gabapentin Gabapentin Yes 100 Three Times A Day [facility] Levocetirizine Dihydrochloride Levocetirizine Dihydrochloride Yes 5 Bedtime [facility] Levothyroxine Sodium Levothyroxine Sodium Yes 75 Daily [facility] Memantine Hcl Memantine Hcl Yes 5 Daily [facility] Metoprolol Succinate Metoprolol Succinate Yes 50 Daily [facility] Minocycline Hcl Minocycline Hcl Yes 100 Twice A Day for Pro [facility] Nifedipine (Nifedipine Er) 30 Mg TAB.ER.24 Nifedipine (Nifedipine Er) 30 Mg TAB.ER.24 Yes 30 Bedtime [facility] Hampton-3 Fatty Acids/Fish Oil (Hampton 3 Fish Oil Softgel ) 1 Each CAPSULE.DR Arriaga 3 Fatty Acids/Fish Oil (Hampton 3 Fish Oil Softgel) 1 Each CAPSULE. Yes 1000 Daily [facility] Pantoprazole Sodium (Protonix) 40 Mg TABLET. Pantopr azole Sodium (Protonix) 40 Mg TABLET.DR Kumari 40 Every 12 Hours [facility] Rosuvastatin Calcium (Crestor) 10 Mg TAB Rosuvastatin Calcium (Crestor) 10 Mg TAB Yes 10 Daily [facility] Thiamine Hcl (B-1) 100 Mg TABLET Thiamine Hcl (B-1) 100 Mg TABLET Yes 100 Daily [facility] Tramadol Hcl (Ultram 50MG*) 50 Mg TAB Tramadol Hcl (Ultram 50MG*) 5 0 Mg TAB Yes 50 Three Times A Day as needed for Moderate Pain (4-6) [facility] Ubidecarenone (Coq-10) 100 Mg CAPSULE Ubidecarenone (Coq-10) 100 Mg CAPSULE Yes 100 Daily [facility] Vit C/E/Zn/Coppr/Lutein/Zeaxan (Preservision Areds 2 S [facility]) 1 Each CAPSULE Vit C/E/Zn/Coppr/Lutein/Zeaxan (Preservision Areds 2 Softgel) 1 Each CAPSULE Yes 1 Daily [facility] Albuterol Sulfate (Proair Digihaler) 90 Mcg AER.PW.BAS Albuterol Sulfate (Proair Digihaler) 90 Mcg AER.PW.BAS 2020-03-13 00:00:00 No .09 Four Times Daily as needed for Wheezing [facility] Fluconazole Fluconazole 2019-09-01 00:00:00 No 100 [facility] Meclizine Hcl Meclizine Hcl 2019-09-01 00:00:00 No 12.5 Daily [facility] Meloxicam Meloxicam 2019-09-01 00:00:00 No 15 Daily as needed for Mild Pain (1-3) [facility] Montelukast Sodium Montelukast Sodium 2019-09-01 00:00:00 No 10 Daily [facility] Nitrofurantoin Macrocrystal (Nitrofurantoin) 100 Mg CA PSULE Nitrofurantoin Macrocrystal (Nitrofurantoin) 100 Mg CAPSULE 2019-09-01 00:00:00 No 100 [facility] Levocetirizine Dihydrochloride Levocetirizine Dihydrochloride 2019-08-31 00:00:00 No 5 Bedtime [facility] Levothyroxine Sodium Levothyroxine Sodium 2019-08-31 00:00:00 No 75 Daily [facility] Ubidecarenone (Coq10) 50 Mg TAB.CHEW Ubidecarenone (Coq10) 50 Mg TAB.CHEW 2019-08-31 00:00:00 No 100 Daily [facility] Donepezil Hcl (Aricept) 5 Mg TABLET Donepezil Hcl (Aricept) 5 Mg TABLET 2019-07-02 00:00:00 No 5 Bedtime [facility] Hydralazine Hcl Hydralazine Hcl 2019-07-02 00:00:00 No 25 Twice A Day as needed for Prn [facility] Meclizine Hcl Meclizine Hcl 2019-07-02 00:00:00 No 25 As Needed [facility] Meloxicam Meloxicam 2019-07-02 00:00:00 No 15 Daily as needed for Prn [facility] Albuterol Sulfate (Proair Hfa Inhaler*) 8.5 Gm INH Alb uterol Sulfate (Proair Hfa Inhaler*) 8.5 Gm INH 2019-06-03 00:00:00 No 1 As Needed [facility] Amlodipine Besylate Amlodipine Besylate 2019-06-03 00:00:00 No 10 Bedtime [facility] Fluticasone Propionate Fluticasone Propionate 2019-06-03 00:00:00 No Daily [facility] Hydralazine Hcl Hydralazine Hcl 2019-06-03 00:00:00 No 50 Three Times A Day [facility] Meclizine Hcl Meclizine Hcl 2017-09-01 00:00:00 No [facility] Baclofen Baclofen 2017-03-14 00:00:00 No 10 Three T imes A Day [facility] Meloxicam Meloxicam 2017-03-11 00:00:00 No 15 Daily [facility] Cetirizine Hcl Cetirizine Hcl 2017-03-08 00:00:00 No 10 Daily [facility] Fluticasone Propionate (Flonase) 16 Gm SPRAY.SUSP Flut icasone Propionate (Flonase) 16 Gm SPRAY.SUSP 2017-03-08 00:00:00 No 16 Daily [facility] Levofloxacin (Levaquin) 500 Mg TABLET Levofloxacin (Levaquin) 50 0 Mg TABLET 2017-03-08 00:00:00 No 500 Daily [facility] Loratadine Loratadine 2017-03-08 00:00:00 No 10 Jayna ly [facility] Antivert Antivert 2017-01-14 00:00:00 No As Need ed [facility] Areds Areds 2017-01-14 00:00:00 No 2 Twice A Day [facility] Nitrofurantoin Macrocrystal (Nitrofurantoin) 100 Mg CA PSULE Nitrofurantoin Macrocrystal (Nitrofurantoin) 100 Mg CAPSULE 2017-01-14 00:00:00 No 100 Twice A Day [facility] Furosemide Furosemide 2017-01-12 00:00:00 No 20 Chiquis ry Other Day [facility] Prednisone Prednisone 2017-01-12 00:00:00 No 5 Twi ce A Day [facility] Ciprofloxacin Hcl (Cipro) 500 Mg TABLET Ciprofloxacin Hcl (C ipro) 500 Mg TABLET 2014-08-05 00:00:00 No 500 Every 12 Hours [facility] Cholecalciferol (Vitamin D3) (Vitamin D) 1,000 Unit TA BLET Cholecalciferol (Vitamin D3) (Vitamin D) 1,000 Unit TABLET 2014-03-19 00:00:00 No 1000 Daily [facility] Lidocaine (Lidoderm) 700 Mg ADH..PATCH Lidocaine (Lidoderm) 700 Mg ADH..PATCH 2014-03-19 00:00:00 No 1 12HOURS [facility] Lisinopril Lisinopril 2014-03-19 00:00:00 No 20 Twi ce A Day [facility] Tizanidine Hcl (Zanaflex) 2 Mg CAPSULE Tizanidine Hcl (Zanaflex) 2 Mg CAPSULE 2014-03-19 00:00:00 No 2 Every 12 Hours [facility] Vit A,C & E/Lutein/Minerals (Ocuvite Tablet) 1 Each TA BLET Vit A,C & E/Lutein/Minerals (Ocuvite Tablet) 1 Each TABLET 2014-03-19 00:00:00 N o 1 Daily [facility] Niacin Niacin 2013-12-14 00:00:00 No 500 Daily [facility] Rosuvastatin Calcium (Crestor) 10 Mg TAB Rosuvastatin Calcium (Crestor) 10 Mg TAB 2013-12-14 00:00:00 No 10 Daily [facility] Vital Signs Vital Name Observation Time Observation Value Comments Source BP Systolic 2020-03-14 18:17:00 190 mm[Hg] [facility] BP Diastolic 2020-03-14 18:17:00 88 mm[Hg] [facility] Body Temperature 2020-03-14 17:11:00 99.3 [degF] [facility] Heart Rate 2020-03-14 17:11:00 59 /min [facility] Respiratory rate 2020-03-14 17:11:00 18 /min [facility] Oxygen saturation by Pulse oximetry 2020-03-14 17:07:00 94 /min [facility] BMI (Body Mass Index) 2020-03-12 16:05:00 23.2 kg/m2 [facility] Weight 2020-03-12 10:27:00 135 [lb_av] [facility] Body Temperature 2019-11-07 15:43:00 98.0 [degF] [facility] Weight 2019-11-07 04:53:00 128.25 [lb_av] [facility] BMI (Body Mass Index) 2019-11-07 04:53:00 20.1 kg/m2 [facility] Body Temperature 2019-10-02 13:00:00 99.6 [degF] [facility] BMI (Body Mass Index) 2019-10-01 20:59:00 22.6 kg/m2 [facility] Weight 2019-10-01 15:23:00 136 [lb_av] [facility] Procedures Procedure Date / Time Performed Performing Clinician [facility] e Computed tomography of brain without radiopaque contrast 2020-02 00:00:00 [facility] Computed tomography of cervical spine without contrast 2020-02-24 8 00:00:00 [facility] REMOVE IN/EX HEM GROUPS 2+ 2020-02-17 00:00:00 [facility] X-ray of chest, two views 2020-02-14 00:00:00 [facility] Computed tomography of brain without radiopaque contrast 2019-10 00:00:00 [facility] Computed tomography of brain without radiopaque contrast 2019-09 00:00:00 [facility] Computed tomography of cervical spine without contrast 8 00:00:00 [facility] INSERT PACE. DUAL SATISH IN CHEST SUBCU/FASCIA, OPEN 2019-08-31 00 :00:00 [facility] INSERTION OF PACEMAKER LEAD INTO RIGHT ATRIUM, PERC AP PROACH 2019-08-31 00:00:00 [facility]ION OF PACEMAKER LEAD INTO R VENTRICLE, PERC APPROACH 2019-08-31 00:00:00 [facility] CT angiography of chest 2019-07-24 00:00:00 HAWA GAGNON [facility] Computed tomography angiography of abdom en and pelvis without then with contrast 2019-07-24 00:00:00 HAWA GAGNON [facility] CYSTOSCOPY & URETER CATHETER 2019-07-21 00:00:00 [facility] REMOVE ANAL FIST SUBQ 2019-07-16 00:00:00 [facility] X-ray of chest, two views 2019-07-15 00:00:00 ROSA GREER [facility] Magnetic resonance imaging of brain without contrast 2019-06 00:00:00 ILANA PALMER [facility] CT angiography of neck 2019-06-29 00:00:00 ILANA PALMER [facility] Computed tomography angiography of brain 2019-06-29 00:00:00 ILANA CARTER [facility] Computed tomography of brain without radiopaque contrast 00:00:00 SANDRA CHASE [facility] Ultrasound, renal 2019-06-22 00:00:00 HAMPEL, SHAILA [facility] INCISION OF ANAL SPHINCTER 2019-06-03 00:00:00 C [facility] Encounters Start Date/Time End Date/Time Encounter Type Admission Type Attendi [facility] Care Department Encounter ID Source 2020-02-17 08:28:00 2020-02-17 08:28:00 Registered Surgical Day Car e 3 ZOEYROSA [facility] [id number] C [facility] 2019-11-06 11:07:00 2019-11-07 15:50:00 Discharged Inpatient (obs) 1 [facility] [id number] [facility] 2019-10-01 17:59:00 2019-10-02 15:18:00 Discharged Inpatient (obs) 1 [facility] [id number] [facility] 2019-08-30 21:57:00 2019-09-01 12:07:00 Discharged Inpatient 1 SANDRA CHASE [facility] [id number] [facility] 2019-07-24 17:01:00 2019-07-24 22:33:00 Departed Emergency Room 1 HAWA GAGNON [facility] [id number] [facility] 2019-07-21 08:45:00 2019-07-21 08:45:00 Registered Surgical Day Care [facility] [id number] [facility] 2019-07-16 08:52:00 2019-07-16 08:52:00 Registered Surgical Day Car e 3 ZOEY ROSA [facility] [id number] C [facility] 2019-06-27 15:13:00 2019-07-02 12:50:00 Discharged Inpatient [address] [facility] [id number] [facility] 2019-06-22 14:20:00 2019-06-22 14:20:00 Registered Clinic 3 NGUYEN BOBYAHAIRA SHAILA [facility] [id number] [facility] 2019-06-03 05:26:00 2019-06-03 05:26:00 Registered Surgical Day Care [facility] [id number] [facility] 2019-05-04 08:42:00 2019-05-25 22:59:00 Discharged Recurring [facility] [id number] [facility] 2019-05-22 08:53:00 2019-05-22 09:23:00 Departed Emergency Room [facility] [id number] [facility] 2019-05-12 05:07:00 2019-05-12 09:37:00 Departed Emergency Room [facility] [id number] [facility] 2019-04-24 07:27:00 2019-04-24 11:14:00 Departed Emergency Room [facility] [id number] [facility] 2019-04-15 07:35:00 2019-04-15 11:07:00 Departed Emergency Room 1 GIRISH BROWN [facility] [id number] [facility] 2018-11-10 05:53:00 2018-11-11 11:15:00 Discharged Inpatient (obs) 1 CELESTE FELICITY [facility] [id number] [facility] 2018-05-21 13:09:00 2018-05-21 20:57:00 Departed Emergency Room 1 GIRISH BROWN [facility] [id number] [facility] 2018-01-30 09:12:00 2018-01-30 09:12:00 Registered Clinic 3 PA ANAT [facility] [id number] [facility] 2017-09-01 08:23:00 2017-09-01 11:00:00 Departed Emergency Room [facility] [id number] [facility] 2017-03-13 13:26:00 2017-03-14 10:42:00 Discharged Inpatient (obs) ER NEERAJ TIRADO [facility] [id number] [facility] 2017-03-08 10:13:00 2017-03-11 11:11:00 Discharged Inpatient ER CHASE [facility] [id number] [facility] 2017-01-12 18:40:00 2017-01-14 11:30:00 Discharged Inpatient ER [facility] [id number] [facility] Results Test Description Test Time Test Comments Results Result Comments Source Urine color determination 2020-03-14 14:31:00 Test Item Urine Color (test code = 5778-6) YELLOW YELLOW [facility] [id number] 14:31:00* Test Item Value Reference Range Interpretation Comments Urine Clarity (test code = 48025-4) SL [facility]OUDY [facility] by Test strip 2020-03-14 14:31:00* Test Item Value Reference Range Interpretation Comments Urine Specific [place] (test code = 5811-5) 1.020 1.010-1.02 5 [facility] pH measurement by automated test [id number] 14:31:00* Test Item Value Reference Range Interpretation Comments Urine pH (test code = 43636-8) 6 5-7 [facility] leukocyte esterase detection by [id number] 14:31:00* Test Item Value Reference Range Interpretation Comments Urine Leukocyte Esterase (test code = 5799-2) SMALL NEGATIVE [facility] nitrite [id number] 14:31:00* Test Item Value Reference Range Interpretation Comments Urine Nitrite (test code = 97687-8) NEGATIVE NEGATIVE [facility] protein measurement by test strip (mass/volume)2020-03-14 14:31:00* Test Item Value Reference Range Interpretation Comments Urine Protein (test code = 5804-0) TRACE NEGATIVE [facility] glucose [id number] 14:31:00* Test Item Value Reference Range Interpretation Comments Urine Glucose (UA) (test code = 2349-9) NEGATIVE NEGATIVE [facility] ketones detection by automated test [id number] 14:31:00* Test Item Value Reference Range Interpretation Comments Urine Ketones (test code = 36292-7) 1+ NEGATIVE [facility] urobilinogen measurement by test strip (mass/volume)2020-03-14 14:31:00* Test Item Value Reference Range Interpretation Comments Urine Urobilinogen (test code = 00555-3) 0.2 mg/dL 0.2-1 [facility] total bilirubin measurement (mass/volume)2020-03-14 14:31:00* Test Item Value Reference Range Interpretation Comments Urine Bilirubin (test code = 1978-6) NEGATIVE NEGATIVE [facility] erythrocytes [id number] 14:31:00* Test Item Value Reference Range Interpretation Comments Urine Blood (test code = 39221-5) MODERATE NEGATIVE [facility] urine sediment leukocyte count by microscopy (number/high power field)2020-03-14 14:31:00* Test Item Value Reference Range Interpretation Comments Urine WBC (test code = 5821-4) 6-10 /[HPF] 0-5 [facility]rythrocytes detection in urine sediment by light [id number] 14:31:00* Test Item Value Reference Range Interpretation Comments Urine RBC (test code = 93398-7) 11-20 /[HPF] 0-5 [facility]acteria detection in urine sediment by light [id number] 14:31:00* Test Item Value Reference Range Interpretation Comments Urine Bacteria (test code = 21162-0) FEW /[HPF] NONE [facility]pithelial cells detection in urine sediment by light [id number] 14:31:00* Test Item Value Reference Range Interpretation Comments Urine Epithelial Cells (test code = 84706-2) MODERATE /[LPF] NONE [facility] THREE VIEWS [id number] 15:13:00[facility] 1935 Sex: F [place] [id number] Patient Name: YUE RAMSEY MR #: [id number] : 1935 Age/Sex: 84/F Req #: [id number] [facility] Physician: GAETANO AVILA MD Ordered by: GAETANO AVILA MD Report #: [id number] [facility] Room/Bed: [facility] Procedure: [id number] DX/KNEE THREE VIEWS BILATERAL Ex am Date: 03/13/20 Exam Time: 1440 REPORT STATUS: Signed Bilateral knees, 3 views each INDICATION: pain, fall 20200313 Comparison: None avail able. 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 Bilateral arthroplasties demonstrate anato stuart postsurgical alignment. Small left and trace right suprapatellar joint eff usions are noted. No grossly displaced fracture or dislocation is noted. No ev idence of hardware malfunction or loosening. Slight notching of the anterior d istal femur is noted on the left, likely incidental. 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 Slight notching of the distal left anterior femur is noted. Negative for acute displaced fracture of the adjacent osse ous structures. Small bilateral suprapatellar joint effusions are noted, nonsp ecific. Signed by: Marcello Chase MD on 03/13/2020 3:25 PM Dictated By : MARCELLO CHASE MD 152 Transcribed By: GELY on 03/13/205 COPY TO: GAETANO AVILA MD Serum or plasma creatine kinase measurement (enzymatic activity/volume) 2020-03-13 12:47:00* Test Item Value Reference Range Interpretation Comments Creatine Kinase (test code = 2157-6) 105 [IU]/L 29-168 [facility] creatine kinase MB measurement (mass/volume)2020-03-13 12:47:00* Test Item Value Reference Range Interpretation Comments Creatine Kinase MB (test code = 29788-4) 1.20 ng/mL 0-5.0 [facility]rop[facility] I measurement by highly sensitive enzyme tajbaoaddkk9375-46-03 12:47:00* Test Item Value Reference Range Interpretation Comments Troponin I (test code = 28302-6) 0.023 ng/mL 0-0.300 [facility]vine[facility] leukocytes automated count (number/volume)2020-03-13 04:47:00* Test Item Value Reference Range Interpretation Comments White Blood Count (test code = 6690-2) 6.78 10*3/uL 4.8-10.8 [facility]vine[facility] erythrocytes automated count (number/volume)2020-03-13 04:47:00* Test Item Value Reference Range Interpretation Comments Red Blood Count (test code = 789-8) 3.47 10*6/mL 3.6-5.1 [facility]vine[facility] hemoglobin measurement (moles/volume)2020-03-13 04:47:00* Test Item Value Reference Range Interpretation Comments Hemoglobin (test code = 73598-0) 10.7 g/dL 12.0-16.0 [facility]vineAutomated blood hematocrit (volume fraction)2020-03-13 04:47:00* Test Item Value Reference Range Interpretation Comments Hematocrit (test code = 4544-3) 33.1 % 34.2-44.1 [facility]vineAutomated erythrocyte mean corpuscular gnfqgi7269-55-61 04:47:00* Test Item Value Reference Range Interpretation Comments Mean Corpuscular Volume (test code = 787-2) 95.4 81-99 [facility]vineAutomated erythrocyte mean corpuscular hemoglobin (mass per erythrocyte)2020-03-13 04:47:00* Test Item Value Reference Range Interpretation Comments Mean Corpuscular Hemoglobin (test code = 785-6) 30.8 pg 28-32 [facility]vineAutomated erythrocyte mean corpuscular hemoglobin concentration measurement (mass/volume)2020-03-13 04:47:00* Test Item Value Reference Range Interpretation Comments Mean Corpuscular Hemoglobin Concent (test code = 786-4) 32.3 g/dL 31-35 [facility] GrapevineRDW WvnJd-Uty5482-87-19 04:47:00* Test Item Value Reference Range Interpretation Comments Red Cell Distribution Width (test code = 68680-6) 13.6 % 11.7 -14.4 [facility]vineAutomated blood platelet count (count/volume)2020-03-13 04:47:00* Test Item Value Reference Range Interpretation Comments Platelet Count (test code = 777-3) 157 10*3/uL 140-360 [facility] GrapevineAutomated blood segmented neutrophil count as percentage of total tqelfnijie5442-38-99 04:47:00* Test Item Value Reference Range Interpretation Comments Neutrophils (%) (Auto) (test code = 15178-7) 65.9 % 38.7-80.0 [facility]vineAutomated blood lymphocyte count as percentage ot total uvpraobmrp3974-42-37 04:47:00* Test Item Value Reference Range Interpretation Comments Lymphocytes (%) (Auto) (test code = 736-9) 19.9 % 18.0-39.1 [facility]vineAutomated blood monocyte count as percentage of total vezykexatk7627-29-04 04:47:00* Test Item Value Reference Range Interpretation Comments Monocytes (%) (Auto) (test code = 5905-5) 8.6 % 4.4-11.3 [facility]vineAutomated blood eosinophil count as percentage of total opzmmqjvez0897-74-51 04:47:00* Test Item Value Reference Range Interpretation Comments Eosinophils (%) (Auto) (test code = 713-8) 4.9 % 0.0-6.0 [facility]vineAutomated blood basophil count as percentage of total ufkqzkauyj2012-03-35 04:47:00* Test Item Value Reference Range Interpretation Comments Basophils (%) (Auto) (test code = 706-2) 0.4 % 0.0-1.0 [facility] GrapevineFluoroscopic procedure less than one hour sgicuudt9910-87-05 04:47:00* Test Item Value Reference Range Interpretation Comments IM GRANULOCYTES % (test code = IM GRANULOCYTES %) 0.3 % 0.0- 1.0 [facility]vineAutomated blood neutrophil count 2020-03-13 04:47:00* Test Item Value Reference Range Interpretation Comments Neutrophils # (Auto) (test code = 751-8) 4.5 2.1-6.9 [facility]vineBlood lymphocytes count (number/volume) 2020-03-13 04:47:00* Test Item Value Reference Range Interpretation Comments Lymphocytes # (Auto) (test code = 56038-4) 1.4 1.0-3.2 [facility]vineBlood monocytes automated count (number/volume)2020-03-13 04:47:00* Test Item Value Reference Range Interpretation Comments Monocytes # (Auto) (test code = 742-7) 0.6 0.2-0.8 [facility]rapevineAutomated blood eosinophil count 2020-03-13 04:47:00* Test Item Value Reference Range Interpretation Comments Eosinophils # (Auto) (test code = 711-2) 0.3 0.0-0.4 [facility]vineAutomated blood basophil count (count/volume)2020-03-13 04:47:00* Test Item Value Reference Range Interpretation Comments Basophils # (Auto) (test code = 704-7) 0.0 0.0-0.1 [facility]rapevineFluoroscopic procedure less than one hour irpglgte2857-90-10 04:47:00* Test Item Value Reference Range Interpretation Comments Absolute Immature Granulocyte (auto (anjali t code = Absolute Immature Granulocyte (auto) 0.02 10*3/uL 0-0.1 [facility] sodium measurement (moles/volume)2020-03-13 04:47:00* Test Item Value Reference Range Interpretation Comments Sodium Level (test code = 2951-2) 141 mmol/L 136-145 [facility]er[facility] or plasma potassium measurement (moles/volume)2020-03-13 04:47:00* Test Item Value Reference Range Interpretation Comments Potassium Level (test code = 2823-3) 4.1 mmol/L 3.5-5.1 [facility]er[facility] or plasma chloride measurement (moles/volume)2020-03-13 04:47:00* Test Item Value Reference Range Interpretation Comments Chloride Level (test code = 2075-0) 110 mmol/L 98-107 [facility]er[facility] or plasma carbon dioxide, total measurement (moles/volume)2020-03-13 04:47:00* Test Item Value Reference Range Interpretation Comments Carbon Dioxide Level (test code = 2028-9) 23 mmol/L 22-29 [facility] or plasma anion voo9896-83-58 04:47:00* Test Item Value Reference Range Interpretation Comments Anion Gap (test code = 69824-3) 12.1 mmol/L 8-16 [facility] or plasma urea nitrogen measurement (mass/volume)2020-03-13 04:47:00* Test Item Value Reference Range Interpretation Comments Blood Urea Nitrogen (test code = 3094-0) 19 mg/dL 7-26 [facility]er[facility] or plasma creatinine measurement (mass/volume)2020-03-13 04:47:00* Test Item Value Reference Range Interpretation Comments Creatinine (test code = 2160-0) 1.29 mg/dL 0.57-1.11 [facility]er[facility] or plasma urea nitrogen/creatinine mass sjtwb7193-69-41 04:47:00* Test Item Value Reference Range Interpretation Comments BUN/Creatinine Ratio (test code = 3097-3) 15 6-25 [facility] GrapevineEstimated glomerular filtration rate (GFR) bqkkgexmnddfv8331-81-09 04:47:00* Test Item Value Reference Range Interpretation Comments Estimat Glomerular Filtration Rate (test code = 526204470) 40 mL/mi n >60 Ranges were taken from the National Kidney Disease Education Program and the [facility] Hospital[facility] Kidney Foundation literature.Reference ranges:60 or greater: Crupjl48-12 ( for 3 consecutive months): Chronic kidney disease 15 or less: Kidney failureBaylor Scott & [facility] – GrapevineGlucose daixtcqrdsr5476-54-22 04:47:00* Test Item Value Reference Range Interpretation Comments Glucose Level (test code = NQX1468) 102 mg/dL 74-118 [facility]er[facility] or plasma calcium measurement (mass/volume)2020-03-13 04:47:00* Test Item Value Reference Range Interpretation Comments Calcium Level (test code = 15191-2) 8.2 mg/dL 8.4-10.2 [facility] GrapevinePhosphorus xlxvmrvdvou8831-01-93 04:47:00 * Test Item Value Reference Range Interpretation Comments Phosphorus Level (test code = EOJ0413) 3.4 mg/dL 2.3-4.7 [facility]er[facility] or plasma magnesium measurement (mass/volume)2020-03-13 04:47:00* Test Item Value Reference Range Interpretation Comments Magnesium Level (test code = 78686-9) 2.2 mg/dL 1.3-2.1 [facility] Hospitaler[facility] or plasma total bilirubin measurement (mass/volume)2020-03-13 04:47:00* Test Item Value Reference Range Interpretation Comments Total Bilirubin (test code = 1975-2) 0.7 mg/dL 0.2-1.2 [facility] GrapevineFluoroscopic procedure less than one hour jgzbijac1965-84-21 04:47:00* Test Item Value Reference Range Interpretation Comments Aspartate Amino Transf (AST/SGOT) (test code = Aspartate Amino Transf (AST/SGOT)) 19 [IU]/L 5-34 [facility]erum or plasma alanine aminotransferase measurement (enzymatic activity/volume)2020-03-13 04:47:00* Test Item Value Reference Range Interpretation Comments Alanine Aminotransferase (ALT/SGPT) (test code = 1742-6) 13 [IU]/L 0-55 [facility]er[facility] or plasma protein measurement (mass/volume)2020-03-13 04:47:00* Test Item Value Reference Range Interpretation Comments Total Protein (test code = 2885-2) 5.9 g/dL 6.5-8.1 [facility] Hospitaler[facility] or plasma albumin measurement (mass/volume)2020-03-13 04:47:00* Test Item Value Reference Range Interpretation Comments Albumin (test code = 1751-7) 2.7 g/dL 3.5-5.0 [facility] GrapevinePlasma globulin measurement (mass/volume) 2020-03-13 04:47:00* Test Item Value Reference Range Interpretation Comments Globulin (test code = 12605-3) 3.2 g/dL 2.3-3.5 [facility]er[facility] or plasma albumin/globulin mass bpaew9179-77-62 04:47:00* Test Item Value Reference Range Interpretation Comments Albumin/Globulin Ratio (test code = 1759-0) 0.8 0.8-2.0 [facility]er[facility] or plasma alkaline phosphatase measurement (enzymatic activity/volume)2020-03-13 04:47:00* Test Item Value Reference Range Interpretation Comments Alkaline Phosphatase (test code = 6768-6) 58 [IU]/L 40-150 [facility]rapevineCHEST SINGLE (PORTABLE)2020-03-12 17:48:00[facility] : 1935 Sex: F [facility] [address] [address] Patient Name: YUE RAMSEY MR #: [id number] : 1935 Age/Sex: 84/F Req #: [id number] Adm Physician: GAETANO AVILA MD Ordered by: GAETANO AVILA MD Report #: [id number] Location: [facility] Room/Bed: [facility] Procedure: [id number] DX/CHEST SINGLE (PORTABLE) Exam Date: 03/12/20 Exam Time: 171 REPORT STATUS: Signed EXAMINATION: CHEST SINGLE (PORT ABLE) - RIGHT LATERAL DECUBITUS INDICATION: ABNORMAL PORTABLE CHEST XRAY COMPARISON: Same day chest radiograph. FINDINGS: TUBES and L SANTIAGO: None. LUNGS: Lungs are well inflated. No new consolidation. Unchang ed lucent/peripherally sclerotic focus projecting in the left apex, possibly i n the bone. PLEURA: No pleural effusion or pneumothorax. HEART AND MEDIASTINUM: The cardiomediastinal silhouette is unremarkable. BONES AND SOFT TISSUES: No acute osseous abnormality. Healing left mid posterior ri b fracture. UPPER ABDOMEN: No free air under the diaphragm. IMPRE SSION: No evidence of pneumothorax. Signed by: Dr. Sj Pierson MD on 5:52 PM Dictated By: SJ PIERSON MD 51 Transcribed By: GELY on 03/12/201751 COPY TO: GAETANO AVILA MD Fluoroscopic procedure less than one hour ewuqarih9080-10-33 16:40:00* Test Item Value Reference Range Interpretation Comments Lactic Acid Level (test code = Lactic Acid Level) 1.8 mmol/L 0.5- 2.0 [facility] GrapevineProthrombin time (PT) in platelet poor plasma by coagulation ubdee4310-60-02 15:25:00* Test Item Value Reference Range Interpretation Comments Prothrombin Time (test code = 5902-2) 13.6 s 11.9-14.5 [facility] GrapevineINR in Platelet poor plasma by Coagulation bskge6216-93-90 15:25:00* Test Item Value Reference Range Interpretation Comments Prothromb Time International Ratio (test code = 6301-6) 0.99 Oral Anticoagulant Therapy INR Values:1. Low Intensity Therapy 1.5 - 2.02 . Moderate Intensity Therapy 2.0 - 3.03. High Intensity Therapy(1) 2.5 - 3. 54. High Intensity Therapy(2) 3.0 - 4.05. Panic Value INR > 5.0 [facility] GrapevineActivated partial thromboplastin time (aPTT) in platelet poor plasma by coagulation asfnw1378-80-18 15:25:00* Test Item Value Reference Range Interpretation Comments Activated Partial Thromboplast Time (test code = 69481-3) 29.1 s 23.8-35.5 [facility] GrapevineCapillary blood glucose measurement by glucometer (mass/volume)2020-03-12 14:58:00* Test Item Value Reference Range Interpretation Comments Bedside Glucose (test code = 88265-6) 110 mg/dL 70-120 Meter ID: [id number] Scott & White [facility] GrapevineFluoroscopic procedure less than one hour trdrddso6517-00-37 13:46:00* Test Item Value Reference Range Interpretation Comments Coronavirus (PCR) (test code = Coronavirus (PCR)) NOT DETECTED NOTD ETECTED SARS-CoV-2 PCRHologic Aptima SARS-CoV-2 assay is a nucleic amplification test in tended for the qualitative detection of RNA from SARS-CoV-2 from nasopharyngeal ([employer]) specimens. It is used under Emergency Use Authorization (EUA) by FDA.A posi tive result is indicative of the presence of SARS-CoV-2 RNA. Clinical correlatio n with patient history and other diagnostic information is necessary to determin e patient infection status.A negative (Not Detected) result does not preclude SA RS-CoV-2 infection. Clinical Correlation with patient history and other diagnost ic information should be used in patient management decisions.Invalid: Unable to generate a valid result on this specimen. Please submit a new specimen for repr at testing oc clinically indicated.Tesing performed by:[facility] Laboratory Services[address] [place] [address] [id number], Felicity saunders MD, PhDCHI [facility] SINGLE (PORTABLE) 2020-03-12 11:56:00 [facility] : 1935 Sex: F* [place] [address] Patient Name: YUE RAMSEY MR #: [id number] : 1935 Age/Sex: 84/F Req #: [id number] Adm Physician: Ordered by: MÓNICA HINDS DO Report #: [id number] Location: ER Room/Bed: Procedure: [id number] DX/CHEST SINGLE (PORTABLE) Ex am Date: 03/12/20 Exam Time: 1047 REPORT STATUS: Signed EXAMINATION: CHEST SINGLE (P ORTABLE) INDICATION: Fall. COMPARISON: Multiple prior chest radio graphs including most recent on 02/14/2020. FINDINGS: TUBES a nd LINES: Double lead cardiac pacemaker overlying the left chest wall. SHAYNE GS: Normal lung volumes. Redemonstration of increased interstitial lung ramon ings. No consolidations. Previously noted nodular density overlying the left midlung likely corresponds to healing rib fracture. PLEURA: No pleural eff usion. Apparent lucency at the left lung apex. There are likely lung markings peripherally. HEART AND MEDIASTINUM: The cardiomediastinal silhouette is unremarkable. BONES AND SOFT TISSUES: No acute osseous abnormality. Di ffuse osteopenia. UPPER ABDOMEN: No free air under the diaphragm. IMPRESSION: Apparent lucency at the left lung apex, with likely lung markings peripherally, which may represent artifact although pneumothorax may have a s imilar appearance. Recommend repeat chest radiograph with right lateral decubi tus (right side down) view. Previously noted nodular density overlying th e left midlung likely corresponds to healing rib fracture. Signed by: Dr. Sj Pierson MD on 03/12/2020 12:02 PM Dictated By: SJ PIERSON MD Electr onically Signed By: SJ PIERSON MD on 03/12/201201 Transcribed By: GELY on 1201 COPY TO: MÓNICA HINDS, PELVIS AP 1-2 VIEWS 2020-03-12 11:54:00 [facility] : 1935 [facility]: F[facility] [address] [facility] [place] [address] Patient Name: YUE RAMSEY MR #: [id number] : 1935 Age/Sex: 84/F Req #: [id number] Adm Physician: Ordered by: MÓNICA HINDS DO Report #: [id number] Location: ER Room/Bed: Procedure: [id number] DX/PELVIS AP 1-2 VIEWS Exam D ate: 03/12/20 Exam Time: 1047 REPORT STATUS: Signed Exam: AP radiograph of the pel vis-1 view Clinical History: Fall. Comparison: None. Findings/Imp ression: No evidence of acute fracture or malalignment. Mild degenerative schofield ges of bilateral hips and pubic symphysis. Bilateral hyperdensities, likely so ft tissue calcifications overlie the pelvis. Signed by: Dr. Sj Pierson MD on 03/12/2020 11:56 AM Dictated By: SJ PIERSON MD Electronically Si gned By: SJ PIERSON MD on 03/12/20 1156 Transcribed By: GELY on 03/12/20 115 6 COPY TO: MÓNICA HINDS DO CT CERVICAL SPINE [id number] 11:54:00[facility] : 1935 Sex: F [facility] [address] [address] Patient Name: YUE RAMSEY MR #: [id number] : 1935 Age/Sex: 84/F Req #: [id number] Adm Physician: Ordered by: MÓNICA HINDS DO Report #: [id number] Location: ER Room/Bed: Procedure: [id number] CT/CT CERVICAL SPINE WO Exam Date: 03/12/20 Exam Time: 1047 REPORT STATUS: Signed EXAMINATION: CT of the cervical spine HISTORY: Status post fall, trauma, head and neck pain COMPARISON: None available TECHNIQUE: Multidetector helical axial images were obtained wit hout contrast from the foramen magnum to T1. Dose modulation, iterative recons truction, and/or weight based adjustment of the mA/kV was utilized to reduce t he radiation dose to as low as reasonably achievable. FINDINGS: Alignment: Normal alignment and lordosis Soft tissues: Normal Vertebrae: Normal height and density. No acute fracture, infection or melanie plasm Degenerative changes: C1-C2: Mild degenerative changes wit hout stenosis. C2-C3: Mild facet arthrosis without stenoses. C3-C4: Disc osteophyte complex formation, bilateral uncovertebral and facet arthrosis. Mi ld spinal canal and moderate foraminal stenoses on the right. Mild left forami nal stenosis. C4-C5: Asymmetric right disc osteophyte complex formation, unc overtebral and facet arthrosis. Moderately severe right foraminal stenosis. Mi ld canal narrowing. C5-C6: Disc osteophyte complex formation, bilateral un covertebral and facet arthrosis. Moderate spinal canal and bilateral foraminal stenosis. C6-C7: Distal cephalic observation, bilateral uncovertebral and f acet arthrosis. Moderately severe right and mild left foraminal stenosis. C7-T1: Normal IMPRESSION: 1. No acute cervical spine postraumati c abnormalities. 2. Chronic degenerative changes as detailed above. Note : Acute postraumatic spinal cord, vascular or ligamentous injuries cannot adeq uately be assessed by CT. Signed by: Dr. Peterson Schultz M.D. on 0 12:00 PM Dictated By: PETERSON SCHULTZ MD 1200 Transcribed By: GELY on 03/12/20 1200 COPY TO : MÓNICA HINDS DO CT BRAIN [id number] 11:43:00 [facility] : 1935 [facility] [address] [id number] Patient Name: YUE RAMSEY MR #: [id number] : 1935 Age/Sex: 84/F Req #: [id number] Adm Physician: Ordered by: MÓNICA HINDS DO Report #: [id number] Location: ER Room/Bed: Procedure: [id number] CT/CT BRAIN WO Exam Date: Exam Time: 1047 REPORT STATUS: Signed EXAMINATION: Head CT HISTORY: Statu s post fall, head trauma, laceration to the right side of the head, pain. CO MPARISON: Brain MRI 06/29/2019 TECHNIQUE: Helical axial images of the head were obtained. Reformatted coronal and sagittal images from the axial data. Dose modulation, iterative reconstruction, and/or weight based adjustment of the mA /kV was utilized to reduce the radiation dose to as low as reasonably achievab le. FINDINGS: Parenchyma: 1. Persistent hematocrit O ischemic changes. 2. No mass or hemorrhage. No CT evidence of acute territorial vascu lar insult. Extra-axial spaces:No abnormal density. No extra-ax ial fluid collections Brain volume: Normal for age. Ventricles: No hydrocephalus or displacement. Arteries: No density suggestive of th rombus. Dural sinuses: No abnormal density. Foramen magnum: No m ass, Chiari malformation, or basilar invagination. Sella: No obvious mas s. Paranasal/mastoid sinuses: Imaged portions unremarkable. Sku ll/Scalp: No lytic or blastic lesions. No fractures. IMPRESSION: 1. No acute intracranial hemorrhage. 2. Mild chronic microvascular ischemic calvin nges, stable compared to MRI of 06/29/2019. Signed by: Srinath Barlow on 03/12/2020 11:47 AM Dictated By: PETERSON SCHULTZ MD Electronically Sign ed By: PETERSON SCHULTZ MD on 03/12/20 1147 Transcribed By: GELY on 03/12/20 1147 COPY TO: MÓNICA HINDS DO CHEST 2 [id number] 17:19:00 [place] [address] Patient Name: YUE RAMSEY MR #: [id number] : 1935 Age/Sex: 84/F Req #: [id number] Adm Physician: Ordered by: ROSA GREER MD Report #: [id number] Location: OR Room/Bed: Procedure: [id number] DX/CHEST 2 VIEWS Exam Date: 02/14/20 Exam Time: 1650 REPORT STATUS: Signed EXAMINATION: [facility] ST 2 VIEWS INDICATION: Preop. COMPARISON: Multiple prior chest ra diographs including most recent on 11/06/2019. FINDINGS: TUBES and LINES: Double lead cardiac pacemaker overlying the left chest wall. L UNGS: Normal lung volumes. Redemonstration of increased interstitial lung ma rkings. No consolidations. There is new nodular density projecting over the l eft rib adjacent to the cardiac pacemaker. PLEURA: No pleural effusion or pneumothorax. HEART AND MEDIASTINUM: The cardiomediastinal silhouette is u nremarkable. BONES AND SOFT TISSUES: No acute osseous lesion. Soft ti ssues are unremarkable. UPPER ABDOMEN: No free air under the diaphragm. IMPRESSION: 1. New nodular density projecting over the left rib a djacent to the cardiac pacemaker. This may represent callus from healing rib f racture, sclerotic bony changes or pulmonary nodule. Recommend chest CT with c ontrast for further evaluation of this finding. 2. Redemonstration of promi nent interstitial markings which may represent chronic lung scarring versus pu lmonary edema. Signed by: Majo Pepe MD on 02/14/2020 5:39 PM Dict ated By: MAJO PEPE MD 38 COPY TO: KIRSTIN GREER MD Blood leukocytes automated count (number/volume)2019-11-07 05:00:00* Test Item Value Reference Range Interpretation Comments White Blood Count (test code = 6690-2) 6.51 4.8-10.8 [facility]vine[facility] erythrocytes automated count (number/volume)2019-11-07 05:00:00* Test Item Value Reference Range Interpretation Comments Red Blood Count (test code = 789-8) 3.99 3.6-5.1 [facility]vineBlood hemoglobin measurement (moles/volume)2019-11-07 05:00:00* Test Item Value Reference Range Interpretation Comments Hemoglobin (test code = 30302-3) 11.9 12.0-16.0 [facility] GrapevineAutomated blood hematocrit (volume fraction)2019-11-07 05:00:00* Test Item Value Reference Range Interpretation Comments Hematocrit (test code = 4544-3) 36.8 34.2-44.1 [facility]rapevineAutomated erythrocyte mean corpuscular ofsett3476-36-76 05:00:00* Test Item Value Reference Range Interpretation Comments Mean Corpuscular Volume (test code = 787-2) 92.2 81-99 [facility]vineAutomated erythrocyte mean corpuscular hemoglobin (mass per erythrocyte)2019-11-07 05:00:00* Test Item Value Reference Range Interpretation Comments Mean Corpuscular Hemoglobin (test code = 785-6) 29.8 28-32 [facility]vineAutomated erythrocyte mean corpuscular hemoglobin concentration measurement (mass/volume)2019-11-07 05:00:00* Test Item Value Reference Range Interpretation Comments Mean Corpuscular Hemoglobin Concent (test code = 786-4) 32.3 31-35 [facility] GrapevineRDW AwoEm-Tol6664-51-14 05:00:00* Test Item Value Reference Range Interpretation Comments Red Cell Distribution Width (test code = 41387-5) 14.3 11.7 -14.4 [facility]vineAutomated blood platelet count (count/volume)2019-11-07 05:00:00* Test Item Value Reference Range Interpretation Comments Platelet Count (test code = 777-3) 201 140-360 [facility] GrapevineAutomated blood segmented neutrophil count as percentage of total zbkfhthzwb5441-63-67 05:00:00* Test Item Value Reference Range Interpretation Comments Neutrophils (%) (Auto) (test code = 89353-6) 63.9 38.7-80.0 [facility]vineAutomated blood lymphocyte count as percentage ot total hmkeyajszu8294-08-98 05:00:00* Test Item Value Reference Range Interpretation Comments Lymphocytes (%) (Auto) (test code = 736-9) 21.8 18.0-39.1 [facility]vineAutomated blood monocyte count as percentage of total nbteisbanr9182-62-92 05:00:00* Test Item Value Reference Range Interpretation Comments Monocytes (%) (Auto) (test code = 5905-5) 9.2 4.4-11.3 [facility]vineAutomated blood eosinophil count as percentage of total eultucbbyh6685-24-60 05:00:00* Test Item Value Reference Range Interpretation Comments Eosinophils (%) (Auto) (test code = 713-8) 3.7 0.0-6.0 [facility]vineAutomated blood basophil count as percentage of total dnfouzyczv0526-83-61 05:00:00* Test Item Value Reference Range Interpretation Comments Basophils (%) (Auto) (test code = 706-2) 1.1 0.0-1.0 [facility] GrapevineFluoroscopic procedure less than one hour ysecplju6626-50-38 05:00:00* Test Item Value Reference Range Interpretation Comments IM GRANULOCYTES % (test code = IM GRANULOCYTES %) 0.3 0.0- 1.0 [facility]vineAutomated blood neutrophil count 2019-11-07 05:00:00* Test Item Value Reference Range Interpretation Comments Neutrophils # (Auto) (test code = 751-8) 4.2 2.1-6.9 [facility]vineBlood lymphocytes count (number/volume) 2019-11-07 05:00:00* Test Item Value Reference Range Interpretation Comments Lymphocytes # (Auto) (test code = 85493-1) 1.4 1.0-3.2 [facility]vineBlood monocytes automated count (number/volume)2019-11-07 05:00:00* Test Item Value Reference Range Interpretation Comments Monocytes # (Auto) (test code = 742-7) 0.6 0.2-0.8 [facility]vineAutomated blood eosinophil count 2019-11-07 05:00:00* Test Item Value Reference Range Interpretation Comments Eosinophils # (Auto) (test code = 711-2) 0.2 0.0-0.4 [facility]vineAutomated blood basophil count (count/volume)2019-11-07 05:00:00* Test Item Value Reference Range Interpretation Comments Basophils # (Auto) (test code = 704-7) 0.1 0.0-0.1 [facility]vineFluoroscopic procedure less than one hour qxhxvynh4531-18-27 05:00:00* Test Item Value Reference Range Interpretation Comments Absolute Immature Granulocyte (auto (anjali t code = Absolute Immature Granulocyte (auto) 0.02 0-0.1 [facility] sodium measurement (moles/volume)2019-11-07 05:00:00* Test Item Value Reference Range Interpretation Comments Sodium Level (test code = 2951-2) 142 136-145 [facility] Hospitalerum or plasma potassium measurement (moles/volume)2019-11-07 05:00:00* Test Item Value Reference Range Interpretation Comments Potassium Level (test code = 2823-3) 4.0 3.5-5.1 [facility] Hospitalerum or plasma chloride measurement (moles/volume)2019-11-07 05:00:00* Test Item Value Reference Range Interpretation Comments Chloride Level (test code = 2075-0) 110 98-107 [facility] Hospitalerum or plasma carbon dioxide, total measurement (moles/volume)2019-11-07 05:00:00* Test Item Value Reference Range Interpretation Comments Carbon Dioxide Level (test code = 2028-9) 23 22-29 [facility] Hospitalerum or plasma anion mqm8962-99-69 05:00:00* Test Item Value Reference Range Interpretation Comments Anion Gap (test code = 84443-0) 13.0 8-16 [facility] Hospitalerum or plasma urea nitrogen measurement (mass/volume)2019-11-07 05:00:00* Test Item Value Reference Range Interpretation Comments Blood Urea Nitrogen (test code = 3094-0) 15 7-26 [facility] Hospitalerum or plasma creatinine measurement (mass/volume)2019-11-07 05:00:00* Test Item Value Reference Range Interpretation Comments Creatinine (test code = 2160-0) 1.20 0.57-1.11 [facility] Hospitalerum or plasma urea nitrogen/creatinine mass hsxgv1653-29-11 05:00:00* Test Item Value Reference Range Interpretation Comments BUN/Creatinine Ratio (test code = 3097-3) 13 6-25 [facility]vineEstimated glomerular filtration rate (GFR) qrvmucsffifwc9322-60-25 05:00:00* Test Item Value Reference Range Interpretation Comments Estimat Glomerular Filtration Rate (test code = 120876287) 43 >60 Ranges were taken from the National Kidney Disease Education Program and the [facility] literature.Reference ranges:60 or greater: Ugpbig52-07 ( for 3 consecutive months): Chronic kidney disease 15 or less: Kidney failureB[facility] GrapevineGlucose xpzlpfwpnfv4252-12-20 05:00:00* Test Item Value Reference Range Interpretation Comments Glucose Level (test code = HRC6836) 97 74-118 [facility] Hospitalerum or plasma calcium measurement (mass/volume)2019-11-07 05:00:00* Test Item Value Reference Range Interpretation Comments Calcium Level (test code = 30772-7) 8.9 8.4-10.2 [facility] Hospitalerum or plasma total bilirubin measurement (mass/volume)2019-11-07 05:00:00* Test Item Value Reference Range Interpretation Comments Total Bilirubin (test code = 1975-2) 0.6 0.2-1.2 [facility]rapevineFluoroscopic procedure less than one hour owretuoq3867-64-34 05:00:00* Test Item Value Reference Range Interpretation Comments Aspartate Amino Transf (AST/SGOT) (test code = Aspartate Amino Transf (AST/SGOT)) 23 5-34 [facility] Hospitalerum or plasma alanine aminotransferase measurement (enzymatic activity/volume)2019-11-07 05:00:00* Test Item Value Reference Range Interpretation Comments Alanine Aminotransferase (ALT/SGPT) (test code = 1742-6) 13 0-55 [facility] Hospitalerum or plasma protein measurement (mass/volume)2019-11-07 05:00:00* Test Item Value Reference Range Interpretation Comments Total Protein (test code = 2885-2) 6.4 6.5-8.1 [facility] Hospitalerum or plasma albumin measurement (mass/volume)2019-11-07 05:00:00* Test Item Value Reference Range Interpretation Comments Albumin (test code = 1751-7) 3.0 3.5-5.0 [facility]vinePlasma globulin measurement (mass/volume) 2019-11-07 05:00:00* Test Item Value Reference Range Interpretation Comments Globulin (test code = 83141-7) 3.4 2.3-3.5 [facility] Hospitalerum or plasma albumin/globulin mass wware3417-43-85 05:00:00* Test Item Value Reference Range Interpretation Comments Albumin/Globulin Ratio (test code = 1759-0) 0.9 0.8-2.0 [facility] Hospitalerum or plasma alkaline phosphatase measurement (enzymatic activity/volume)2019-11-07 05:00:00* Test Item Value Reference Range Interpretation Comments Alkaline Phosphatase (test code = 6768-6) 68 40-150 [facility] Hospitalerum or plasma creatine kinase measurement (enzymatic activity/volume)2019-11-07 05:00:00* Test Item Value Reference Range Interpretation Comments Creatine Kinase (test code = 2157-6) 54 29-168 [facility] Hospitalerum or plasma creatine kinase MB measurement (mass/volume)2019-11-07 05:00:00* Test Item Value Reference Range Interpretation Comments Creatine Kinase MB (test code = 81487-6) 1.10 0-5.0 [facility]vineTroponin I measurement by highly sensitive enzyme hctcluozbfz1012-48-00 05:00:00* Test Item Value Reference Range Interpretation Comments Troponin I (test code = 68207-1) 0.012 0-0.300 [facility] GrapevineCT BRAIN [id number] 10:44:00 [facility] [address] [address] Patient Name: YUE RAMSEY MR #: [id number] : 1935 Age/Sex: 84/F Req #: [id number] Adm Physician: Ordered by: RICKI REMY DO Report #: [id number] Location: ER Room/Bed: Procedure: [id number] CT/CT BRAIN W O Exam Date: 11/06/19 [...] RICKI REMY DO CHEST SINGLE (PORTABLE)2019-11-06 10:22:00 [address] [address] Patient Name: YUE RAMSEY MR #: [id number] : 1935 Age/Sex: 84/F Req #: [id number] Adm Physician: GAETANO AVILA MD Ordered by: RICKI REMY DO Report #: [id number] Location: [facility] Room/Bed: [facility] Procedure: [id number] DX/CHEST SING LE (PORTABLE) Exam Date: 11/06/19 [...] COPY TO: RICKI REMY DO Urine color nwnwxcgzbmoyc9422-78-00 09:40:00* Test Item Value Reference Range Interpretation Comments Urine Color (test code = 5778-6) YELLOW YELLOW [facility] GrapevineUrine ukgdifo0490-66-50 09:40:00* Test Item Value Reference Range Interpretation Comments Urine Clarity (test code = 26116-7) CLEAR CLEAR [facility] Hospitalpecific gravity of Urine by Test strip 2019-11-06 09:40:00* Test Item Value Reference Range Interpretation Comments Urine Specific [place] (test code = 5811-5) >=1.030 1.010-1.02 5 [facility]vineUrine pH measurement by automated test qtblr8967-45-73 09:40:00* Test Item Value Reference Range Interpretation Comments Urine pH (test code = 19994-9) 6 5-7 [facility] GrapevineUrine leukocyte esterase detection by vsexrjax5420-81-70 09:40:00* Test Item Value Reference Range Interpretation Comments Urine Leukocyte Esterase (test code = 5799-2) SMALL NEGATIVE [facility] GrapevineUrine nitrite nhrcwqjuq1959-63-69 09:40:00* Test Item Value Reference Range Interpretation Comments Urine Nitrite (test code = 70121-0) NEGATIVE NEGATIVE [facility] GrapevineUrine protein measurement by test strip (mass/volume)2019-11-06 09:40:00* Test Item Value Reference Range Interpretation Comments Urine Protein (test code = 5804-0) TRACE NEGATIVE [facility] GrapevineUrine glucose vzdtzkbto4981-37-44 09:40:00* Test Item Value Reference Range Interpretation Comments Urine Glucose (UA) (test code = 2349-9) NEGATIVE NEGATIVE [facility] GrapevineUrine ketones detection by automated test tlhba1792-69-20 09:40:00* Test Item Value Reference Range Interpretation Comments Urine Ketones (test code = 73358-5) NEGATIVE NEGATIVE [facility] GrapevineUrine urobilinogen measurement by test strip (mass/volume)2019-11-06 09:40:00* Test Item Value Reference Range Interpretation Comments Urine Urobilinogen (test code = 40349-3) 0.2 0.2-1 [facility]vineUrine total bilirubin measurement (mass/volume)2019-11-06 09:40:00* Test Item Value Reference Range Interpretation Comments Urine Bilirubin (test code = 1978-6) NEGATIVE NEGATIVE [facility] G[facility]vineUrine erythrocytes vaenasqoq0797-18-41 09:40:00* Test Item Value Reference Range Interpretation Comments Urine Blood (test code = 26281-1) TRACE NEGATIVE [facility] GrapevineAutomated urine sediment leukocyte count by microscopy (number/high power field)2019-11-06 09:40:00* Test Item Value Reference Range Interpretation Comments Urine WBC (test code = 5821-4) 6-10 0-5 [facility] G[facility]vineErythrocytes detection in urine sediment by light wlowhkstfz0982-29-87 09:40:00* Test Item Value Reference Range Interpretation Comments Urine RBC (test code = 25352-2) 0-5 0-5 [facility]vineBacteria detection in urine sediment by light binhhsosfd7305-83-81 09:40:00* Test Item Value Reference Range Interpretation Comments Urine Bacteria (test code = 47265-3) FEW NONE [facility] GrapevineEpithelial cells detection in urine sediment by light bpptuxueld4183-73-82 09:40:00* Test Item Value Reference Range Interpretation Comments Urine Epithelial Cells (test code = 62564-3) MODERATE NONE [facility] GrapevineBNP Ujn-fQqy9765-64-13 09:40:00* Test Item Value Reference Range Interpretation Comments B-Type Natriuretic Peptide (test code = 04758-1) 150.3 0-100 [facility] GrapevineBNP Abv-pCez9185-44-13 09:40:00* Test Item Value Reference Range Interpretation Comments B-Type Natriuretic Peptide (test code = 54939-5) 150.3 pg/mL 0-100 [facility]vineBlood leukocytes automated count (number/volume)2019-10-02 06:30:00* Test Item Value Reference Range Interpretation Comments White Blood Count (test code = 6690-2) 6.30 4.8-10.8 [facility]vineBlood erythrocytes automated count (number/volume)2019-10-02 06:30:00* Test Item Value Reference Range Interpretation Comments Red Blood Count (test code = 789-8) 3.57 3.6-5.1 [facility]vineBlood hemoglobin measurement (moles/volume)2019-10-02 06:30:00* Test Item Value Reference Range Interpretation Comments Hemoglobin (test code = 97184-8) 10.6 12.0-16.0 [facility]rapevineAutomated blood hematocrit (volume fraction)2019-10-02 06:30:00* Test Item Value Reference Range Interpretation Comments Hematocrit (test code = 4544-3) 32.9 34.2-44.1 [facility]rapevineAutomated erythrocyte mean corpuscular zxixjw7985-30-11 06:30:00* Test Item Value Reference Range Interpretation Comments Mean Corpuscular Volume (test code = 787-2) 92.2 81-99 [facility]rapevineAutomated erythrocyte mean corpuscular hemoglobin (mass per erythrocyte)2019-10-02 06:30:00* Test Item Value Reference Range Interpretation Comments Mean Corpuscular Hemoglobin (test code = 785-6) 29.7 28-32 [facility]rapevineAutomated erythrocyte mean corpuscular hemoglobin concentration measurement (mass/volume)2019-10-02 06:30:00* Test Item Value Reference Range Interpretation Comments Mean Corpuscular Hemoglobin Concent (test code = 786-4) 32.2 31-35 [facility] GrapevineRDW InbFo-Rjd2821-19-09 06:30:00* Test Item Value Reference Range Interpretation Comments Red Cell Distribution Width (test code = 79306-9) 15.2 11.7 -14.4 [facility]rapevineAutomated blood platelet count (count/volume)2019-10-02 06:30:00* Test Item Value Reference Range Interpretation Comments Platelet Count (test code = 777-3) 182 140-360 [facility] GrapevineAutomated blood segmented neutrophil count as percentage of total azhzycrtxs7746-83-62 06:30:00* Test Item Value Reference Range Interpretation Comments Neutrophils (%) (Auto) (test code = 86730-9) 79.6 38.7-80.[address] [facility] blood lymphocyte count as percentage ot total mxmdcsejsi1651-32-12 06:30:00* Test Item Value Reference Range Interpretation Comments Lymphocytes (%) (Auto) (test code = 736-9) 6.2 18.0-39.1 [facility]rapevineAutomated blood monocyte count as percentage of total ogcgibvjho4550-61-84 06:30:00* Test Item Value Reference Range Interpretation Comments Monocytes (%) (Auto) (test code = 5905-5) 9.0 4.4-11.3 [facility]vineAut[facility] blood eosinophil count as percentage of total gggidgpeep7739-95-55 06:30:00* Test Item Value Reference Range Interpretation Comments Eosinophils (%) (Auto) (test code = 713-8) 4.1 0.0-6.0 [facility]rapevineAutomated blood basophil count as percentage of total nkaldrumxj0325-75-03 06:30:00* Test Item Value Reference Range Interpretation Comments Basophils (%) (Auto) (test code = 706-2) 0.6 0.0-1.0 [facility] GrapevineFluoroscopic procedure less than one hour jfxsglxb1641-13-93 06:30:00* Test Item Value Reference Range Interpretation Comments IM GRANULOCYTES % (test code = IM GRANULOCYTES %) 0.5 0.0- 1.0 [facility]rapevineAutomated blood neutrophil count 2019-10-02 06:30:00* Test Item Value Reference Range Interpretation Comments Neutrophils # (Auto) (test code = 751-8) 5.0 2.1-6.9 [facility]vineBlood lymphocytes count (number/volume) 2019-10-02 06:30:00* Test Item Value Reference Range Interpretation Comments Lymphocytes # (Auto) (test code = 77135-0) 0.4 1.0-3.2 [facility]vineBlood monocytes automated count (number/volume)2019-10-02 06:30:00* Test Item Value Reference Range Interpretation Comments Monocytes # (Auto) (test code = 742-7) 0.6 0.2-0.8 [facility]rapevineAutomated blood eosinophil count 2019-10-02 06:30:00* Test Item Value Reference Range Interpretation Comments Eosinophils # (Auto) (test code = 711-2) 0.3 0.0-0.4 [facility]rapevineAutomated blood basophil count (count/volume)2019-10-02 06:30:00* Test Item Value Reference Range Interpretation Comments Basophils # (Auto) (test code = 704-7) 0.0 0.0-0.1 [facility] GrapevineFluoroscopic procedure less than one hour nqnhrnwh9571-32-81 06:30:00* Test Item Value Reference Range Interpretation Comments Absolute Immature Granulocyte (auto (anjali t code = Absolute Immature Granulocyte (auto) 0.03 0-0.1 [facility] Hospitalerum or plasma sodium measurement (moles/volume)2019-10-02 06:25:00* Test Item Value Reference Range Interpretation Comments Sodium Level (test code = 2951-2) 141 136-145 [facility] Hospitalerum or plasma potassium measurement (moles/volume)2019-10-02 06:25:00* Test Item Value Reference Range Interpretation Comments Potassium Level (test code = 2823-3) 3.7 3.5-5.1 [facility] Hospitalerum or plasma chloride measurement (moles/volume)2019-10-02 06:25:00* Test Item Value Reference Range Interpretation Comments Chloride Level (test code = 2075-0) 112 98-107 [facility] Hospitalerum or plasma carbon dioxide, total measurement (moles/volume)2019-10-02 06:25:00* Test Item Value Reference Range Interpretation Comments Carbon Dioxide Level (test code = 2028-9) 22 22-29 [facility] Hospitalerum or plasma anion qqj0473-89-27 06:25:00* Test Item Value Reference Range Interpretation Comments Anion Gap (test code = 28868-2) 10.7 8-16 [facility] Hospitalerum or plasma urea nitrogen measurement (mass/volume)2019-10-02 06:25:00* Test Item Value Reference Range Interpretation Comments Blood Urea Nitrogen (test code = 3094-0) 17 7-26 [facility] Hospitalerum or plasma creatinine measurement (mass/volume)2019-10-02 06:25:00* Test Item Value Reference Range Interpretation Comments Creatinine (test code = 2160-0) 1.08 0.57-1.11 [facility] Hospitalerum or plasma urea nitrogen/creatinine mass yqsiv5044-19-97 06:25:00* Test Item Value Reference Range Interpretation Comments BUN/Creatinine Ratio (test code = 3097-3) 16 6-25 [facility]vineEstimated glomerular filtration rate (GFR) ekainbczhpblw2657-03-23 06:25:00* Test Item Value Reference Range Interpretation Comments Estimat Glomerular Filtration Rate (test code = 657763547) 49 >60 Ranges were taken from the National Kidney Disease Education Program and the [facility] literature.Reference ranges:60 or greater: Euratk54-43 ( for 3 consecutive months): Chronic kidney disease 15 or less: Kidney failureB[facility] & [facility] Center – GrapevineGlucose znhncslmozp7195-39-15 06:25:00* Test Item Value Reference Range Interpretation Comments Glucose Level (test code = QJJ2269) 106 74-118 [facility] Hospitalerum or plasma calcium measurement (mass/volume)2019-10-02 06:25:00* Test Item Value Reference Range Interpretation Comments Calcium Level (test code = 26741-5) 8.0 8.4-10.2 [facility] Hospitalerum or plasma total bilirubin measurement (mass/volume)2019-10-02 06:25:00* Test Item Value Reference Range Interpretation Comments Total Bilirubin (test code = 1975-2) 0.6 0.2-1.2 [facility] GrapevineFluoroscopic procedure less than one hour nhjpffrh6279-96-77 06:25:00* Test Item Value Reference Range Interpretation Comments Aspartate Amino Transf (AST/SGOT) (test code = Aspartate Amino Transf (AST/SGOT)) 19 5-34 [facility] Hospitalerum or plasma alanine aminotransferase measurement (enzymatic activity/volume)2019-10-02 06:25:00* Test Item Value Reference Range Interpretation Comments Alanine Aminotransferase (ALT/SGPT) (test code = 1742-6) 10 0-55 [facility] Hospitalerum or plasma protein measurement (mass/volume)2019-10-02 06:25:00* Test Item Value Reference Range Interpretation Comments Total Protein (test code = 2885-2) 5.7 6.5-8.1 [facility] Hospitalerum or plasma albumin measurement (mass/volume)2019-10-02 06:25:00* Test Item Value Reference Range Interpretation Comments Albumin (test code = 1751-7) 2.7 3.5-5.0 [facility] GrapevinePlasma globulin measurement (mass/volume) 2019-10-02 06:25:00* Test Item Value Reference Range Interpretation Comments Globulin (test code = 70031-3) 3.0 2.3-3.5 [facility] Hospitalerum or plasma albumin/globulin mass hxdla1736-72-55 06:25:00* Test Item Value Reference Range Interpretation Comments Albumin/Globulin Ratio (test code = 1759-0) 0.9 0.8-2.0 [facility] Hospitalerum or plasma alkaline phosphatase measurement (enzymatic activity/volume)2019-10-02 06:25:00* Test Item Value Reference Range Interpretation Comments Alkaline Phosphatase (test code = 6768-6) 64 40-150 [facility] Hospitalerum or plasma creatine kinase measurement (enzymatic activity/volume)2019-10-02 06:25:00* Test Item Value Reference Range Interpretation Comments Creatine Kinase (test code = 2157-6) 79 29-168 [facility] Hospitalerum or plasma creatine kinase MB measurement (mass/volume)2019-10-02 06:25:00* Test Item Value Reference Range Interpretation Comments Creatine Kinase MB (test code = 63641-4) 0.80 0-5.0 [facility]vineTroponin I measurement by highly sensitive enzyme mfcilftfvgy1045-72-11 06:25:00* Test Item Value Reference Range Interpretation Comments Troponin I (test code = 42554-4) 0.020 0-0.300 [facility] Hospitalerum or plasma thyrotropin measurement by detection limit <= 0.005 miu/l (units/volume)2019-10-02 06:25:00* Test Item Value Reference Range Interpretation Comments Thyroid Stimulating Hormone (TSH) (test code = 25660-2) 2.554 0.350-4.940 [facility] Hospitalerum or plasma thyrotropin measurement by detection limit <= 0.005 miu/l (units/volume)2019-10-02 06:25:00* Test Item Value Reference Range Interpretation Comments Thyroid Stimulating Hormone (TSH) (test code = 20059-9) 2.554 0.350-4.940 [facility] Hospitalerum or plasma thyrotropin measurement by detection limit <= 0.005 miu/l (units/volume)2019-10-02 06:25:00* Test Item Value Reference Range Interpretation Comments Thyroid Stimulating Hormone (TSH) (test code = 12068-6) 2.554 0.350-4.940 [facility] GrapevineFluoroscopic procedure less than one hour yncdoawk2021-55-14 18:30:00* Test Item Value Reference Range Interpretation [...] to perform high complexity tests.Specimen sent to [facility] and testing performed by Clinical Pathology [id number] [place], [place] [phone] Director: Ramon Quezada M.D.IA # [id number] [facility] CenterRIBS UNILAT W/IYE1417-99-45 17:25:00 [facility] [address] [address] Patient Name: YUE RAMSEY MR #: [id number] : 1935 Age/Sex: 84/F Req #: [id number] Adm Physician: Ordered by: RICKI QUICK CENTRAL OFFICE EQUIPMENT ENGINEER Report #: [id number] Location: ER Room/Bed: Procedure: [id number] DX/RIBS UN ILAT W/CXR Exam Date: 10/01/19 Exam Time: 1630 REPORT STATUS: Signed Left rib multip le views CPT code: 40879 History: Fall, left rib pain Comparison: None. [...] GELY on 10/01/191726 COPY TO: RICKI QUICK CENTRAL OFFICE EQUIPMENT ENGINEER PELVIS AP 1-2 [id number] 17:23:[address] [address] Patient Name: YUE RAMSEY MR #: [id number] : 1935 Age/Sex: 84/F Req #: [id number] Adm Physician: Ordered by: RICKI QUICK CENTRAL OFFICE EQUIPMENT ENGINEER Report #: [id number] Location: ER Room/Bed: Procedure: [id number] DX/PELVIS AP 1-2 VIEWS Exam Date: 10/01/19 Exam Time: 1630 REPORT STATUS: Signed Pelvis C PT code: 87547 Indication: [id number] Technique: A.P . view of [...] GELY on 10/01/191723 COPY TO: RICKI QUICK CENTRAL OFFICE EQUIPMENT ENGINEER CT CERVICAL SPINE [id number] 16:54:[address] [address] Patient Name: YUE RAMSEY MR #: [id number] : 1935 Age/Sex: 84/[id number] Req #: [id number] Adm Physician: GAETANO AVILA MD Ordered by: RICKI QUICK NP Report #: [id number] Location: [facility] Room/Bed: [address] [address] Procedure: [id number] CT/CT CERV ICAL SPINE WO Exam Date: [...] malform ation. Under pneumatization of the bilateral biostatistics teacher cells. Cervica l spine CT: Airway: Patent. [...] GELY on 10/01/191918 COPY TO: RICKI QUICK CENTRAL OFFICE EQUIPMENT ENGINEER CT BRAIN [id number] 16:54:[address] [address] Patient Name: YUE RAMSEY MR #: [id number] : 1935 Age/Sex: 84/F Req #: [id number] Adm Physician: GAETANO AVILA MD Ordered by: RICKI QUICK CENTRAL OFFICE EQUIPMENT ENGINEER Report #: [id number] Location: [facility]Bed[facility] Procedure: [id number] CT/CT SHAI ROMAN Exam Date: 10/01/19 Exam Time: 1630 REPORT [...] one malformation. Under pneumatization of the bilateral biostatistics teacher cells. Cervical spine C T: Airway: Patent. [...] (PT) in platelet poor plasma by coagulation yyggj8387-94-89 15:30:00* Test Item Value Reference Range Interpretation Comments Prothrombin Time (test code = 5902-2) 13.0 11.9-14.5 [facility] GrapevineINR in Platelet poor plasma by Coagulation tavuz8946-90-19 15:30:00* Test Item Value Reference Range Interpretation Comments Prothromb Time International Ratio (test code = 6301-6) 0.93 Oral Anticoagulant Therapy INR Values:1. Low Intensity Therapy 1.5 - 2.02 . Moderate Intensity Therapy 2.0 - 3.03. High Intensity Therapy(1) 2.5 - 3. 54. High Intensity Therapy(2) 3.0 - 4.05. Panic Value INR > 5.0 [facility] GrapevineActivated partial thromboplastin time (aPTT) in platelet poor plasma by coagulation ywhql5491-59-34 15:30:00* Test Item Value Reference Range Interpretation Comments Activated Partial Thromboplast Time (test code = 48369-7) 25.3 23.8-35.5 [facility] GrapevineUrine color jfptoutuuxdtu2226-60-10 15:30:00* Test Item Value Reference Range Interpretation Comments Urine Color (test code = 5778-6) YELLOW YELLOW [facility] GrapevineUrine zpxrhcr7736-03-27 15:30:00* Test Item Value Reference Range Interpretation Comments Urine Clarity (test code = 51712-2) SL CLOUDY CLEAR [facility] Hospitalpecific gravity of Urine by Test strip 2019-10-01 15:30:00* Test Item Value Reference Range Interpretation Comments Urine Specific [place] (test code = 5811-5) 1.020 1.010-1.02 5 [facility] GrapevineUrine pH measurement by automated test qqnbg3304-04-45 15:30:00* Test Item Value Reference Range Interpretation Comments Urine pH (test code = 21725-0) 5.5 5-7 [facility] GrapevineUrine leukocyte esterase detection by ttlliaka0450-18-91 15:30:00* Test Item Value Reference Range Interpretation Comments Urine Leukocyte Esterase (test code = 5799-2) SMALL NEGATIVE [facility] GrapevineUrine nitrite nkpjvmqdb1229-30-12 15:30:00* Test Item Value Reference Range Interpretation Comments Urine Nitrite (test code = 66770-6) NEGATIVE NEGATIVE [facility] GrapevineUrine protein measurement by test strip (mass/volume)2019-10-01 15:30:00* Test Item Value Reference Range Interpretation Comments Urine Protein (test code = 5804-0) NEGATIVE NEGATIVE [facility] GrapevineUrine glucose bezdwrgem5433-49-63 15:30:00* Test Item Value Reference Range Interpretation Comments Urine Glucose (UA) (test code = 2349-9) NEGATIVE NEGATIVE [facility] GrapevineUrine ketones detection by automated test sngtx8104-88-74 15:30:00* Test Item Value Reference Range Interpretation Comments Urine Ketones (test code = 24011-2) NEGATIVE NEGATIVE [facility] GrapevineUrine urobilinogen measurement by test strip (mass/volume)2019-10-01 15:30:00* Test Item Value Reference Range Interpretation Comments Urine Urobilinogen (test code = 43106-2) 0.2 0.2-1 [facility] GrapevineUrine total bilirubin measurement (mass/volume)2019-10-01 15:30:00* Test Item Value Reference Range Interpretation Comments Urine Bilirubin (test code = 1978-6) NEGATIVE NEGATIVE [facility] GrapevineUrine erythrocytes kdydgdxue1414-50-90 15:30:00* Test Item Value Reference Range Interpretation Comments Urine Blood (test code = 92666-0) NEGATIVE NEGATIVE [facility] GrapevineAutomated urine sediment leukocyte count by microscopy (number/high power field)2019-10-01 15:30:00* Test Item Value Reference Range Interpretation Comments Urine WBC (test code = 5821-4) 6-10 0-5 [facility] GrapevineErythrocytes detection in urine sediment by light rojasghnoz8475-51-66 15:30:00* Test Item Value Reference Range Interpretation Comments Urine RBC (test code = 38211-9) NONE 0-5 [facility] GrapevineBacteria detection in urine sediment by light suovaxydqc1464-60-39 15:30:00* Test Item Value Reference Range Interpretation Comments Urine Bacteria (test code = 84081-3) MANY NONE [facility] GrapevineEpithelial cells detection in urine sediment by light vimptbkkcc7974-88-56 15:30:00* Test Item Value Reference Range Interpretation Comments Urine Epithelial Cells (test code = 62509-6) MANY NONE [facility] GrapevineTransitional cells detection in urine sediment by light wpqktsotvo6402-73-51 15:30:00* Test Item Value Reference Range Interpretation Comments Urine Transitional Epithelial Cells (test code = 8249-5) MODERATE NONE [facility] GrapevineProthrombin time (PT) in platelet poor plasma by coagulation tefzl9127-94-97 15:30:00* Test Item Value Reference Range Interpretation Comments Prothrombin Time (test code = 5902-2) 13.0 11.9-14.5 [facility]rapevineINR in Platelet poor plasma by Coagulation gjhiq2667-70-07 15:30:00* Test Item Value Reference Range Interpretation Comments Prothromb Time International Ratio (test code = 6301-6) 0.93 Oral Anticoagulant Therapy INR Values:1. Low Intensity Therapy 1.5 - 2.02 . Moderate Intensity Therapy 2.0 - 3.03. High Intensity Therapy(1) 2.5 - 3. 54. High Intensity Therapy(2) 3.0 - 4.05. Panic Value INR > 5.0 [facility]rapevineActivated partial thromboplastin time (aPTT) in platelet poor plasma by coagulation qihks4520-74-80 15:30:00* Test Item Value Reference Range Interpretation Comments Activated Partial Thromboplast Time (test code = 24764-2) 25.3 23.8-35.5 [facility] GrapevineTransitional cells detection in urine sediment by light kqqjkttvhz0854-65-75 15:30:00* Test Item Value Reference Range Interpretation Comments Urine Transitional Epithelial Cells (test code = 8249-5) MODERATE NONE [facility] GrapevineTransitional cells detection in urine sediment by light ekkgutnshm4038-35-67 15:30:00* Test Item Value Reference Range Interpretation Comments Urine Transitional Epithelial Cells (test code = 8249-5) MODERATE NONE [facility] GrapevineThyroid Stimulating Hormone (TSH) 2019-09-01 09:12:00* Test Item Value Reference Range Interpretation Comments Thyroid Stimulating Hormone (TSH) (test code = 74738-2) 1.441 0.350-4.940 [facility] Hospitalodium Lzpae0734-99-29 06:04:00* Test Item Value Reference Range Interpretation Comments Sodium Level (test code = 2951-2) 142 136-145 [facility] GrapevinePotassium Vmmyp8353-40-76 06:04:00* Test Item Value Reference Range Interpretation Comments Potassium Level (test code = 2823-3) 4.4 3.5-5.1 [facility] GrapevineChloride Xergp5395-78-32 06:04:00* Test Item Value Reference Range Interpretation Comments Chloride Level (test code = 2075-0) 111 98-107 H [facility] GrapevineCarbon Dioxide Pzkga8905-41-72 06:04:00* Test Item Value Reference Range Interpretation Comments Carbon Dioxide Level (test code = 2028-9) 24 22-29 [facility] GrapevineAnion Xbj3028-64-03 06:04:00* Test Item Value Reference Range Interpretation Comments Anion Gap (test code = 26619-4) 11.4 8-16 [facility] GrapevineBlood Urea Gnsnokna9494-41-45 06:04:00* Test Item Value Reference Range Interpretation Comments Blood Urea Nitrogen (test code = 3094-0) 20 7-26 [facility] GrapevineCreatinine2020-04-08 06:04:00* Test Item Value Reference Range Interpretation Comments Creatinine (test code = 2160-0) 1.43 0.57-1.11 H [facility] GrapevineBUN/Creatinine Hdltf7449-48-62 06:04:00* Test Item Value Reference Range Interpretation Comments BUN/Creatinine Ratio (test code = 3097-3) 14 6-25 [facility] GrapevineEstimat Glomerular Filtration Rate 2019-09-01 06:04:00* Test Item Value Reference Range Interpretation Comments Estimat Glomerular Filtration Rate (test code = 853664549) 35 >60 L Ranges were taken from the National Kidney Disease Education Program and the [facility] Kidney Foundation literature.Reference ranges:60 or greater: Hsgdgc10-71 ( for 3 consecutive months): Chronic kidney disease 15 or less: Kidney failureBaylor Scott & White Medical Center – GrapevineGlucose Grsqa0620-17-61 06:04:00* Test Item Value Reference Range Interpretation Comments Glucose Level (test code = ZCQ0849) 105 74-118 [facility] GrapevineCalcium Grsdl8455-96-28 06:04:00* Test Item Value Reference Range Interpretation Comments Calcium Level (test code = 38035-4) 8.4 8.4-10.2 [facility] GrapevineTotal Pzdcedjpy6518-94-56 06:04:00* Test Item Value Reference Range Interpretation Comments Total Bilirubin (test code = 1975-2) 0.6 0.2-1.2 [facility] GrapevineAspartate Amino Transf (AST/SGOT) 2019-09-01 06:04:00* Test Item Value Reference Range Interpretation Comments Aspartate Amino Transf (AST/SGOT) (test code = Aspartate Amino Transf (AST/SGOT)) 20 5-34 [facility] GrapevineAlanine Aminotransferase (ALT/SGPT) 2019-09-01 06:04:00* Test Item Value Reference Range Interpretation Comments Alanine Aminotransferase (ALT/SGPT) (test code = 1742-6) 12 0-55 [facility] GrapevineTotal Zpbukzb3498-77-42 06:04:00* Test Item Value Reference Range Interpretation Comments Total Protein (test code = 2885-2) 6.4 6.5-8.1 L [facility] GrapevineAlbumin2020-04-08 06:04:00* Test Item Value Reference Range Interpretation Comments Albumin (test code = 1751-7) 2.9 3.5-5.0 L [facility] GrapevineGlobulin2020-04-08 06:04:00* Test Item Value Reference Range Interpretation Comments Globulin (test code = 75652-9) 3.5 2.3-3.5 [facility] GrapevineAlbumin/Globulin Hkbqf7360-45-20 06:04:00 * Test Item Value Reference Range Interpretation Comments Albumin/Globulin Ratio (test code = 1759-0) 0.8 0.8-2.0 [facility] GrapevineAlkaline Dviugosaiqr0755-57-73 06:04:00* Test Item Value Reference Range Interpretation Comments Alkaline Phosphatase (test code = 6768-6) 82 40-150 [facility] GrapevineWhite Blood Wbdet4250-81-79 05:57:00* Test Item Value Reference Range Interpretation Comments White Blood Count (test code = 6690-2) 7.30 4.8-10.8 [facility] GrapevineRed Blood Apfhf5676-23-05 05:57:00* Test Item Value Reference Range Interpretation Comments Red Blood Count (test code = 789-8) 3.75 3.6-5.1 [facility] GrapevineHemoglobin2020-04-08 05:57:00* Test Item Value Reference Range Interpretation Comments Hemoglobin (test code = 97242-1) 11.0 12.0-16.0 L [facility] GrapevineHematocrit2020-04-08 05:57:00* Test Item Value Reference Range Interpretation Comments Hematocrit (test code = 4544-3) 34.7 34.2-44.1 [facility] GrapevineMean Corpuscular Rlkekv3434-04-27 05:57:00* Test Item Value Reference Range Interpretation Comments Mean Corpuscular Volume (test code = 787-2) 92.5 81-99 [facility] GrapevineMean Corpuscular Avkpvgnvwh5486-75-70 05:57:00* Test Item Value Reference Range Interpretation Comments Mean Corpuscular Hemoglobin (test code = 785-6) 29.3 28-32 [facility] GrapevineMean Corpuscular Hemoglobin Concent 2019-09-01 05:57:00* Test Item Value Reference Range Interpretation Comments Mean Corpuscular Hemoglobin Concent (test code = 786-4) 31.7 31-35 [facility] GrapevineRed Cell Distribution Utsss0792-57-12 05:57:00* Test Item Value Reference Range Interpretation Comments Red Cell Distribution Width (test code = 94296-2) 14.9 11.7 -14.4 H [facility] GrapevinePlatelet Blexj9069-69-00 05:57:00* Test Item Value Reference Range Interpretation Comments Platelet Count (test code = 777-3) 221 140-360 [facility] GrapevineNeutrophils (%) (Auto)2019-09-01 05:57:00 * Test Item Value Reference Range Interpretation Comments Neutrophils (%) (Auto) (test code = 65641-9) 76.9 38.7-80.0 [facility] GrapevineLymphocytes (%) (Auto)2019-09-01 05:57:00 * Test Item Value Reference Range Interpretation Comments Lymphocytes (%) (Auto) (test code = 736-9) 7.9 18.0-39.1 L [facility] GrapevineMonocytes (%) (Auto)2019-09-01 05:57:00* Test Item Value Reference Range Interpretation Comments Monocytes (%) (Auto) (test code = 5905-5) 8.5 4.4-11.3 [facility] GrapevineEosinophils (%) (Auto)2019-09-01 05:57:00 * Test Item Value Reference Range Interpretation Comments Eosinophils (%) (Auto) (test code = 713-8) 5.9 0.0-6.0 [facility] GrapevineBasophils (%) (Auto)2019-09-01 05:57:00* Test Item Value Reference Range Interpretation Comments Basophils (%) (Auto) (test code = 706-2) 0.5 0.0-1.0 [facility] GrapevineIM GRANULOCYTES %2019-09-01 05:57:00* Test Item Value Reference Range Interpretation Comments IM GRANULOCYTES % (test code = IM GRANULOCYTES %) 0.3 0.0- 1.0 [facility] GrapevineNeutrophils # (Auto)2019-09-01 05:57:00* Test Item Value Reference Range Interpretation Comments Neutrophils # (Auto) (test code = 751-8) 5.6 2.1-6.9 [facility] GrapevineLymphocytes # (Auto)2019-09-01 05:57:00* Test Item Value Reference Range Interpretation Comments Lymphocytes # (Auto) (test code = 36844-1) 0.6 1.0-3.2 L [facility] GrapevineMonocytes # (Auto)2019-09-01 05:57:00* Test Item Value Reference Range Interpretation Comments Monocytes # (Auto) (test code = 742-7) 0.6 0.2-0.8 [facility]rapevineEosinophils # (Auto)2019-09-01 05:57:00* Test Item Value Reference Range Interpretation Comments Eosinophils # (Auto) (test code = 711-2) 0.4 0.0-0.4 [facility] GrapevineBasophils # (Auto)2019-09-01 05:57:00* Test Item Value Reference Range Interpretation Comments Basophils # (Auto) (test code = 704-7) 0.0 0.0-0.1 [facility] GrapevineAbsolute Immature Granulocyte (auto 2019-09-01 05:57:00* Test Item Value Reference Range Interpretation Comments Absolute Immature Granulocyte (auto (anjali t code = Absolute Immature Granulocyte (auto) 0.02 0-0.1 [facility] GrapevineCreatine Kinase ZD3254-71-17 14:19:00* Test Item Value Reference Range Interpretation Comments Creatine Kinase MB (test code = 67415-4) 1.20 0-5.0 [facility] GrapevineTroponin B8029-50-52 14:19:00* Test Item Value Reference Range Interpretation Comments Troponin I (test code = 79182-1) 0.012 0-0.300 [facility] GrapevineCreatine Tpgqfv0892-51-24 14:08:00* Test Item Value Reference Range Interpretation Comments Creatine Kinase (test code = 2157-6) 51 60-998 [facility]CH[facility]2019-08-31 14:05:00 [facility] [address] [address] Patient Name: YUE RAMSEY MR #: [id number] : 1935 Age/Sex: 83/F Req #: [id number] Adm Physician: SANDRA CHASE MD Ordered by: KIET BULL MD Report #: [id number] Location: MED/SURG2 Room/Bed: 202 Procedure: [id number] DX/CHEST SINGLE (PORTABLE) Exam [...] 08/31/191406 COPY TO: KIET BULL MD Triglycerides Jxuqg2388-36-60 03:29:00* Test Item Value Reference Range Interpretation Comments Triglycerides Level (test code = 2571-8) 161 0-149 H [facility] GrapevineCholesterol Kamqn5180-62-84 03:29:00* Test Item Value Reference Range Interpretation Comments Cholesterol Level (test code = 2093-3) 207 0-199 H Less than 200 mg/dL Low Bqca803 - 239 mg/dL Borderline Hgws993 m g/dl and greater High Risk [facility] GrapevineLDL Leqdxjgiftl4731-04-09 03:29:00* Test Item Value Reference Range Interpretation Comments LDL Cholesterol (test code = 2089-1) 135 60-130 H [facility] GrapevineHDL Vqonfwoxsde3999-12-62 03:29:00* Test Item Value Reference Range Interpretation Comments HDL Cholesterol (test code = 2085-9) 40 40-60 [facility] GrapevineCholesterol/HDL Liyib1168-03-25 03:29:00 * Test Item Value Reference Range Interpretation Comments Cholesterol/HDL Ratio (test code = 9830-1) 5.2 3.0-3.6 H [facility]erum or plasma triglyceride measurement (mass/volume)2019-08-31 02:43:00* Test Item Value Reference Range Interpretation Comments Triglycerides Level (test code = 2571-8) 161 0-149 [facility] Hospitalerum or plasma cholesterol measurement (mass/volume)2019-08-31 02:43:00* Test Item Value Reference Range Interpretation Comments Cholesterol Level (test code = 2093-3) 207 0-199 Less than 200 mg/dL Low Ikeq584 - 239 mg/dL Borderline Tpag062 m g/dl and greater High Risk [facility]erum or plasma cholesterol in LDL measurement (mass/volume) 2019-08-31 02:43:00* Test Item Value Reference Range Interpretation Comments LDL Cholesterol (test code = 2089-1) 135 60-130 [facility] Hospitalerum or plasma cholesterol in HDL measurement (mass/volume)2019-08-31 02:43:00* Test Item Value Reference Range Interpretation Comments HDL Cholesterol (test code = 2085-9) 40 40-60 [facility] Hospitalerum or plasma total cholesterol/cholesterol in HDL mass tsrum5632-27-72 02:43:00* Test Item Value Reference Range Interpretation Comments Cholesterol/HDL Ratio (test code = 9830-1) 5.2 3.0-3.6 [facility] Hospitalerum or plasma triglyceride measurement (mass/volume)2019-08-31 02:43:00* Test Item Value Reference Range Interpretation Comments Triglycerides Level (test code = 2571-8) 161 0-149 [facility] Hospitalerum or plasma cholesterol measurement (mass/volume)2019-08-31 02:43:00* Test Item Value Reference Range Interpretation Comments Cholesterol Level (test code = 2093-3) 207 0-199 Less than 200 mg/dL Low Oclt119 - 239 mg/dL Borderline Hfdk781 m g/dl and greater High Risk [facility]er[facility] or plasma cholesterol in LDL measurement (mass/volume) 2019-08-31 02:43:00* Test Item Value Reference Range Interpretation Comments LDL Cholesterol (test code = 2089-1) 135 60-130 [facility] Hospitalerum or plasma cholesterol in HDL measurement (mass/volume)2019-08-31 02:43:00* Test Item Value Reference Range Interpretation Comments HDL Cholesterol (test code = 2085-9) 40 40-60 [facility] Hospitalerum or plasma total cholesterol/cholesterol in HDL mass fmsab9221-91-88 02:43:00* Test Item Value Reference Range Interpretation Comments Cholesterol/HDL Ratio (test code = 9830-1) 5.2 3.0-3.6 [facility] Hospitalerum or plasma triglyceride measurement (mass/volume)2019-08-31 02:43:00* Test Item Value Reference Range Interpretation Comments Triglycerides Level (test code = 2571-8) 161 mg/dL 0-149 [facility] Hospitalerum or plasma cholesterol measurement (mass/volume)2019-08-31 02:43:00* Test Item Value Reference Range Interpretation Comments Cholesterol Level (test code = 2093-3) 207 mg/dL 0-199 Less than 200 mg/dL Low Jwnm975 - 239 mg/dL Borderline Galj990 m g/dl and greater High Risk [facility] Hospitalerum or plasma cholesterol in LDL measurement (mass/volume) 2019-08-31 02:43:00* Test Item Value Reference Range Interpretation Comments LDL Cholesterol (test code = 2089-1) 135 mg/dL 60-130 [facility] Hospitalerum or plasma cholesterol in HDL measurement (mass/volume)2019-08-31 02:43:00* Test Item Value Reference Range Interpretation Comments HDL Cholesterol (test code = 2085-9) 40 mg/dL 40-60 [facility] Hospitalerum or plasma total cholesterol/cholesterol in HDL mass vwxqs7792-33-90 02:43:00* Test Item Value Reference Range Interpretation Comments Cholesterol/HDL Ratio (test code = 9830-1) 5.2 3.0-3.6 [facility]vine[facility] WBA9561-75-71 20:30:00* Test Item Value Reference Range Interpretation Comments Urine WBC (test code = 5821-4) NONE 0-5 [facility] JDX0063-00-11 20:30:00* Test Item Value Reference Range Interpretation Comments Urine RBC (test code = 31691-5) 0-5 0-5 [facility] Pklvowza2831-69-26 20:30:00* Test Item Value Reference Range Interpretation Comments Urine Bacteria (test code = 95160-3) NONE NONE [facility]vine[facility] Epithelial Henct9060-80-10 20:30:00 * Test Item Value Reference Range Interpretation Comments Urine Epithelial Cells (test code = 47153-1) RARE NONE [facility]vine[facility] Nmcbs1071-27-63 20:17:00* Test Item Value Reference Range Interpretation Comments Urine Color (test code = 5778-6) YELLOW YELLOW [facility]vine[facility] Gmcxpid2702-97-39 20:17:00* Test Item Value Reference Range Interpretation Comments Urine Clarity (test code = 22694-7) CLEAR CLEAR [facility]vineU[facility] Specific Wlmyttl6981-80-14 20:17:00 * Test Item Value Reference Range Interpretation Comments Urine Specific [place] (test code = 5811-5) 1.025 1.010-1.02 5 [facility] eS6268-64-36 20:17:00* Test Item Value Reference Range Interpretation Comments Urine pH (test code = 32977-3) 7 5-7 [facility] Leukocyte Hvyhqkpk1785-22-46 20:17:00* Test Item Value Reference Range Interpretation Comments Urine Leukocyte Esterase (test code = 5799-2) NEGATIVE NEGATIVE [facility] Mkjavqf5786-39-92 20:17:00* Test Item Value Reference Range Interpretation Comments Urine Nitrite (test code = 57478-5) NEGATIVE NEGATIVE [facility]vine[facility] Nlukszh6932-78-94 20:17:00* Test Item Value Reference Range Interpretation Comments Urine Protein (test code = 5804-0) NEGATIVE NEGATIVE [facility] Glucose (UA)2019-08-30 20:17:00* Test Item Value Reference Range Interpretation Comments Urine Glucose (UA) (test code = 2349-9) NEGATIVE NEGATIVE [facility] Fezfdhz9549-90-65 20:17:00* Test Item Value Reference Range Interpretation Comments Urine Ketones (test code = 73070-2) NEGATIVE NEGATIVE [facility] Vtbyocysoxsg2870-51-43 20:17:00* Test Item Value Reference Range Interpretation Comments Urine Urobilinogen (test code = 33708-8) 0.2 0.2-1 [facility] Vhrvraqfh9340-90-72 20:17:00* Test Item Value Reference Range Interpretation Comments Urine Bilirubin (test code = 1978-6) NEGATIVE NEGATIVE [facility] Rskjq1056-62-35 20:17:00* Test Item Value Reference Range Interpretation Comments Urine Blood (test code = 05914-3) NEGATIVE NEGATIVE [facility]vineProthrombin Cgiq1624-53-23 19:34:00* Test Item Value Reference Range Interpretation Comments Prothrombin Time (test code = 5902-2) 12.6 11.9-14.5 [facility] GrapevineProthromb Time International Ratio 2019-08-30 19:34:00* Test Item Value Reference Range Interpretation Comments Prothromb Time International Ratio (test code = 6301-6) 0.89 Oral Anticoagulant Therapy INR Values:1. Low Intensity Therapy 1.5 - 2.02 . Moderate Intensity Therapy 2.0 - 3.03. High Intensity Therapy(1) 2.5 - 3. 54. High Intensity Therapy(2) 3.0 - 4.05. Panic Value INR > 5.0 [facility]vineActivated Partial Thromboplast Time 2019-08-30 19:34:00* Test Item Value Reference Range Interpretation Comments Activated Partial Thromboplast Time (test code = 51472-9) 29.0 23.8-35.5 [facility]vineCHEST SINGLE (PORTABLE)2019-08-30 19:30:00 [facility] [address] [place] [address] Patient Name: YUE RAMSEY MR #: [id number] : 1935 Age/Sex: 83/F Req #: [id number] Adm Physician: Ordered by: MÓNICA HINDS DO Report #: [id number] Location: ER Room/Bed: Procedure: [id number] DX/CHEST [...] 08/30/191931 COPY TO: MÓNICA HINDS DO Creatine Xxpeqe9803-87-15 22:58:00* Test Item Value Reference Range Interpretation Comments Creatine Kinase (test code = 2157-6) 20 29-168 L [facility]vineCreatine Kinase NS3352-44-58 22:58:00* Test Item Value Reference Range Interpretation Comments Creatine Kinase MB (test code = 69983-3) 0.40 0-5.0 [facility] GrapevineTroponin S3739-78-71 22:58:00* Test Item Value Reference Range Interpretation Comments Troponin I (test code = QVR5468) 0.017 0-0.300 [facility] GrapevineCTA ABD/HSKUSC6297-05-26 21:08:00 [facility] [address] [address] Patient Name: YUE RAMSEY MR #: [id number] : 1935 Age/Sex: 83/F Req #: [id number] Adm Physician: Ordered by: HAWA GAGNON MD Report #: [id number] Location: ER Room/Bed: Procedure: [id number] CT/CTA ABD/PELVIS Exam Date: 07/24/19 Exam Time: [...] DISCUSSION: CHEST: Vasculature: Atherosclerotic calcification of the [place] coronary arteries, aortic arch, and great vessel [...] 2127 COPY TO: HAWA GAGNON MD CTA LQBZL5297-30-84 21:08:00 [address] [place] [address] Patient Name: YUE RAMSEY MR #: [id number] : 1935 Age/Sex: 83/F Req #: [id number] Adm Physician: Ordered by: HAWA GAGNON MD Report #: [id number] Location: ER Room/Bed: Procedure: [id number] CT/CTA CHEST Exam Date: 07/24/19 Exam Time: [...] CHEST: Vasculature: Atherosclerotic calcification of t he [place] coronary arteries, aortic arch, and great vessel [...] COPY TO: HAWA GAGNON MD Urine Epithelial Dkxgr2583-46-69 20:41:00* Test Item Value Reference Range Interpretation Comments Urine Epithelial Cells (test code = 33074-1) FEW NONE [facility]vine[facility] Hkhcu9445-44-97 19:52:00* Test Item Value Reference Range Interpretation Comments Urine Color (test code = 5778-6) YELLOW YELLOW [facility]vineU[facility] Vydsgno4786-37-14 19:52:00* Test Item Value Reference Range Interpretation Comments Urine Clarity (test code = 80914-6) CLEAR CLEAR [facility]vineU[facility] Specific Iyllqkg4908-53-77 19:52:00 * Test Item Value Reference Range Interpretation Comments Urine Specific [place] (test code = 5811-5) 1.015 1.010-1.02 5 [facility]vineU[facility] yC5015-78-92 19:52:00* Test Item Value Reference Range Interpretation Comments Urine pH (test code = 92739-0) 7.5 5-7 [facility]vine[facility] Leukocyte Iiaiuolf2833-92-31 19:52:00* Test Item Value Reference Range Interpretation Comments Urine Leukocyte Esterase (test code = 5799-2) NEGATIVE NEGATIVE [facility]vine[facility] Tfvpkda8647-41-51 19:52:00* Test Item Value Reference Range Interpretation Comments Urine Nitrite (test code = 08587-1) NEGATIVE NEGATIVE [facility]vine[facility] Gfhmhkl9072-92-49 19:52:00* Test Item Value Reference Range Interpretation Comments Urine Protein (test code = 5804-0) NEGATIVE NEGATIVE [facility] Glucose (UA)2019-07-24 19:52:00* Test Item Value Reference Range Interpretation Comments Urine Glucose (UA) (test code = 2349-9) NEGATIVE NEGATIVE [facility]vine[facility] Pblitfe2617-05-91 19:52:00* Test Item Value Reference Range Interpretation Comments Urine Ketones (test code = 46945-4) NEGATIVE NEGATIVE [facility] Suoqroumvowq5178-79-80 19:52:00* Test Item Value Reference Range Interpretation Comments Urine Urobilinogen (test code = 67853-5) 0.2 0.2-1 [facility] Szfmeuike8010-47-93 19:52:00* Test Item Value Reference Range Interpretation Comments Urine Bilirubin (test code = 1978-6) NEGATIVE NEGATIVE [facility] Ggyyo2617-50-44 19:52:00* Test Item Value Reference Range Interpretation Comments Urine Blood (test code = 72515-5) NEGATIVE NEGATIVE [facility] HXC4498-22-25 19:52:00* Test Item Value Reference Range Interpretation Comments Urine WBC (test code = 5821-4) 0-5 0-5 [facility] UTM8518-42-54 19:52:00* Test Item Value Reference Range Interpretation Comments Urine RBC (test code = 08399-7) NONE 0-5 [facility]vine[facility] Yppxdcek7705-71-22 19:52:00* Test Item Value Reference Range Interpretation Comments Urine Bacteria (test code = 29445-6) RARE NONE [facility] GrapevineB-Type Natriuretic Fgjtdwv3920-41-55 18:51:00* Test Item Value Reference Range Interpretation Comments B-Type Natriuretic Peptide (test code = 62418-8) 304.7 0-100 H [facility] GrapevineB-Type Natriuretic Wqmmjin1678-69-69 18:51:00* Test Item Value Reference Range Interpretation Comments B-Type Natriuretic Peptide (test code = 31613-3) 304.7 0-100 H [facility]vineWhite Blood Ytklw8128-49-48 18:49:00* Test Item Value Reference Range Interpretation Comments White Blood Count (test code = 6690-2) 7.87 4.8-10.8 [facility] GrapevineRed Blood Hsdyn9048-17-00 18:49:00* Test Item Value Reference Range Interpretation Comments Red Blood Count (test code = 789-8) 3.84 3.6-5.1 [facility] G[facility]vineHemoglobin2020-02-29 18:49:00* Test Item Value Reference Range Interpretation Comments Hemoglobin (test code = 84381-2) 11.4 12.0-16.0 L [facility] GrapevineHematocrit2020-02-29 18:49:00* Test Item Value Reference Range Interpretation Comments Hematocrit (test code = 4544-3) 35.0 34.2-44.1 [facility] GrapevineMean Corpuscular Pffgva6646-00-69 18:49:00* Test Item Value Reference Range Interpretation Comments Mean Corpuscular Volume (test code = 787-2) 91.1 81-99 [facility] GrapevineMean Corpuscular Loakqoeygx2523-59-41 18:49:00* Test Item Value Reference Range Interpretation Comments Mean Corpuscular Hemoglobin (test code = 785-6) 29.7 28-32 [facility] GrapevineMean Corpuscular Hemoglobin Concent 2019-07-24 18:49:00* Test Item Value Reference Range Interpretation Comments Mean Corpuscular Hemoglobin Concent (test code = 786-4) 32.6 31-35 [facility] GrapevineRed Cell Distribution Fyoyg6584-42-29 18:49:00* Test Item Value Reference Range Interpretation Comments Red Cell Distribution Width (test code = 40610-0) 13.4 11.7 -14.4 [facility] GrapevinePlatelet Gdfkj6588-55-78 18:49:00* Test Item Value Reference Range Interpretation Comments Platelet Count (test code = 777-3) 260 140-360 [facility] GrapevineNeutrophils (%) (Auto)2019-07-24 18:49:00 * Test Item Value Reference Range Interpretation Comments Neutrophils (%) (Auto) (test code = 03928-8) 55.4 38.7-80.0 [facility] GrapevineLymphocytes (%) (Auto)2019-07-24 18:49:00 * Test Item Value Reference Range Interpretation Comments Lymphocytes (%) (Auto) (test code = 736-9) 29.5 18.0-39.1 [facility] GrapevineMonocytes (%) (Auto)2019-07-24 18:49:00* Test Item Value Reference Range Interpretation Comments Monocytes (%) (Auto) (test code = 5905-5) 9.8 4.4-11.3 [facility]vineEosinophils (%) (Auto)2019-07-24 18:49:00 * Test Item Value Reference Range Interpretation Comments Eosinophils (%) (Auto) (test code = 713-8) 4.2 0.0-6.0 [facility] GrapevineBasophils (%) (Auto)2019-07-24 18:49:00* Test Item Value Reference Range Interpretation Comments Basophils (%) (Auto) (test code = 706-2) 0.6 0.0-1.0 [facility] GrapevineIM GRANULOCYTES %2019-07-24 18:49:00* Test Item Value Reference Range Interpretation Comments IM GRANULOCYTES % (test code = IM GRANULOCYTES %) 0.5 0.0- 1.0 [facility] GrapevineNeutrophils # (Auto)2019-07-24 18:49:00* Test Item Value Reference Range Interpretation Comments Neutrophils # (Auto) (test code = 751-8) 4.4 2.1-6.9 [facility] GrapevineLymphocytes # (Auto)2019-07-24 18:49:00* Test Item Value Reference Range Interpretation Comments Lymphocytes # (Auto) (test code = 70479-9) 2.3 1.0-3.2 [facility] GrapevineMonocytes # (Auto)2019-07-24 18:49:00* Test Item Value Reference Range Interpretation Comments Monocytes # (Auto) (test code = 742-7) 0.8 0.2-0.8 [facility]vineEosinophils # (Auto)2019-07-24 18:49:00* Test Item Value Reference Range Interpretation Comments Eosinophils # (Auto) (test code = 711-2) 0.3 0.0-0.4 [facility] GrapevineBasophils # (Auto)2019-07-24 18:49:00* Test Item Value Reference Range Interpretation Comments Basophils # (Auto) (test code = 704-7) 0.1 0.0-0.1 [facility] GrapevineAbsolute Immature Granulocyte (auto 2019-07-24 18:49:00* Test Item Value Reference Range Interpretation Comments Absolute Immature Granulocyte (auto (anjali t code = Absolute Immature Granulocyte (auto) 0.04 0-0.1 [facility] Ounla5976-70-46 18:48:00* Test Item Value Reference Range Interpretation Comments Sodium Level (test code = 2951-2) 139 136-145 [facility] GrapevinePotassium Ufmea4903-50-78 18:48:00* Test Item Value Reference Range Interpretation Comments Potassium Level (test code = 2823-3) 3.9 3.5-5.1 [facility] GrapevineChloride Bhglz3634-21-47 18:48:00* Test Item Value Reference Range Interpretation Comments Chloride Level (test code = 2075-0) 108 98-107 H [facility] GrapevineCarbon Dioxide Dggfz0338-84-81 18:48:00* Test Item Value Reference Range Interpretation Comments Carbon Dioxide Level (test code = 2028-9) 23 22-29 [facility] GrapevineAnion Kvs8664-24-92 18:48:00* Test Item Value Reference Range Interpretation Comments Anion Gap (test code = 08978-3) 11.9 8-16 [facility] GrapevineBlood Urea Xqkaithb5361-86-12 18:48:00* Test Item Value Reference Range Interpretation Comments Blood Urea Nitrogen (test code = 3094-0) 14 7-26 [facility] GrapevineCreatinine2020-02-29 18:48:00* Test Item Value Reference Range Interpretation Comments Creatinine (test code = 2160-0) 1.11 0.57-1.11 [facility] GrapevineBUN/Creatinine Svkhz7737-09-87 18:48:00* Test Item Value Reference Range Interpretation Comments BUN/Creatinine Ratio (test code = 3097-3) 13 6-25 [facility] GrapevineEstimat Glomerular Filtration Rate 2019-07-24 18:48:00* Test Item Value Reference Range Interpretation Comments Estimat Glomerular Filtration Rate (test code = 440615058) 47 >60 L Ranges were taken from the National Kidney Disease Education Program and the [facility] Kidney Foundation literature.Reference ranges:60 or greater: Quwyht58-41 ( for 3 consecutive months): Chronic kidney disease 15 or less: Kidney failureBaylor Scott & White Medical Center – GrapevineGlucose Hbwcw2251-51-86 18:48:00* Test Item Value Reference Range Interpretation Comments Glucose Level (test code = UTU3585) 104 74-118 [facility] GrapevineCalcium Whycy7865-90-39 18:48:00* Test Item Value Reference Range Interpretation Comments Calcium Level (test code = 38402-4) 9.5 8.4-10.2 [facility] GrapevineTotal Cbsxkwzlf6008-28-45 18:48:00* Test Item Value Reference Range Interpretation Comments Total Bilirubin (test code = 1975-2) 0.4 0.2-1.2 [facility] GrapevineAspartate Amino Transf (AST/SGOT) 2019-07-24 18:48:00* Test Item Value Reference Range Interpretation Comments Aspartate Amino Transf (AST/SGOT) (test code = Aspartate Amino Transf (AST/SGOT)) 23 5-34 [facility] GrapevineAlanine Aminotransferase (ALT/SGPT) 2019-07-24 18:48:00* Test Item Value Reference Range Interpretation Comments Alanine Aminotransferase (ALT/SGPT) (test code = 1742-6) 13 0-55 [facility] GrapevineTotal Knolcwf4193-14-47 18:48:00* Test Item Value Reference Range Interpretation Comments Total Protein (test code = 2885-2) 6.7 6.5-8.1 [facility] GrapevineAlbumin2020-02-29 18:48:00* Test Item Value Reference Range Interpretation Comments Albumin (test code = 1751-7) 3.1 3.5-5.0 L [facility] GrapevineGlobulin2020-02-29 18:48:00* Test Item Value Reference Range Interpretation Comments Globulin (test code = 68558-7) 3.6 2.3-3.5 H [facility] GrapevineAlbumin/Globulin Uyhfm6876-87-68 18:48:00 * Test Item Value Reference Range Interpretation Comments Albumin/Globulin Ratio (test code = 1759-0) 0.9 0.8-2.0 [facility] GrapevineAlkaline Xosvcpiohdl5911-67-36 18:48:00* Test Item Value Reference Range Interpretation Comments Alkaline Phosphatase (test code = 6768-6) 79 40-150 [facility] GrapevineProthrombin Nosp0930-35-18 18:47:00* Test Item Value Reference Range Interpretation Comments Prothrombin Time (test code = 5902-2) 13.4 11.9-14.5 [facility] GrapevineProthromb Time International Ratio 2019-07-24 18:47:00* Test Item Value Reference Range Interpretation Comments Prothromb Time International Ratio (test code = 6301-6) 0.96 Oral Anticoagulant Therapy INR Values:1. Low Intensity Therapy 1.5 - 2.02 . Moderate Intensity Therapy 2.0 - 3.03. High Intensity Therapy(1) 2.5 - 3. 54. High Intensity Therapy(2) 3.0 - 4.05. 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 Report #: [id number] Location: ER Room/Bed: Procedure: [id number] DX/CHEST SINGLE (PORTABLE) Exam Date: 07/24/19 Exam Time: 1819 REPORT STATUS: Signed EXAMINATION: CHEST SINGLE (PORTABLE) COMPARISON: Chest x-ray 07/15/19 INDICATION: Chest pain ERMD ORDER [id number] Y DI SCUSSION: Frontal view of the [...] 829 COPY TO: BHARATHI JOHNSTON NP BNP Kki-gCnl6200-23-29 17:05:00* Test Item Value Reference Range Interpretation Comments B-Type Natriuretic Peptide (test code = 02612-8) 304.7 0-100 [facility] SZRBZ7386-11-71 14:56:00 [facility] [address] [address] Patient Name: YUE RAMSEY MR #: [id number] : 1935 Age/Sex: 83/F Req #: [id number] Adm Physician: Ordered by: ROSA GREER MD Report #: [id number] Location: OR Room/Bed: Procedure: 42 DX/CHEST 2 [...] TO : ROSA GREER MD Vitamin B1 Wlkzq1261-17-44 21:22:00* Test Item Value Reference Range Interpretation Comments Vitamin B1 Level (test code = 88023-7) 301.0 66.5-200.0 H Performed at: - [facility] [address] [id number] [employer]: Lia Martinez MD, Phone: [phone] Scott & White Medical Center – GrapevineVitamin B1 Bcxri7249-75-55 21:22:00* Test Item Value Reference Range Interpretation Comments Vitamin B1 Level (test code = 98243-1) 301.0 66.5-200.0 H Performed at: - [facility] [address] [id number] [employer]: Lia Martinez MD, Phone: [phone] Memorial Hospitalood Qgizzaz0297-19-96 08:50:00* Test Item Value Reference Range Interpretation Comments Blood Culture (test code = 85803536) NO GROWTH AFTER 5 DAYS, FINAL REPORT [facility] Elbjply2934-62-46 08:50:00* Test Item Value Reference Range Interpretation Comments Blood Culture (test code = 89553653) NO GROWTH AFTER 5 DAYS, FINAL REPORT [facility] Kjslzjv9913-49-41 08:50:00* Test Item Value Reference Range Interpretation Comments Blood Culture (test code = 79702536) NO GROWTH AFTER 5 DAYS, FINAL REPORT [facility] Hospitalodium Uojwg8513-79-45 06:37:00* Test Item Value Reference Range Interpretation Comments Sodium Level (test code = 2951-2) 140 136-145 [facility] GrapevinePotassium Dgbga4383-65-02 06:37:00* Test Item Value Reference Range Interpretation Comments Potassium Level (test code = 2823-3) 3.6 3.5-5.1 [facility] GrapevineChloride Qqyqz8958-94-15 06:37:00* Test Item Value Reference Range Interpretation Comments Chloride Level (test code = 2075-0) 109 98-107 H [facility] GrapevineCarbon Dioxide Rxmjv4656-27-53 06:37:00* Test Item Value Reference Range Interpretation Comments Carbon Dioxide Level (test code = 2028-9) 22 22-29 [facility] GrapevineAnion Vjg8999-07-57 06:37:00* Test Item Value Reference Range Interpretation Comments Anion Gap (test code = 75587-2) 12.6 8-16 [facility] GrapevineBlood Urea Buryphxq5581-22-04 06:37:00* Test Item Value Reference Range Interpretation Comments Blood Urea Nitrogen (test code = 3094-0) 17 7- [facility] GrapevineCreatinine2020-02-06 06:37:00* Test Item Value Reference Range Interpretation Comments Creatinine (test code = 2160-0) 1.09 0.57-1.11 [facility] GrapevineBUN/Creatinine Osmrp0045-96-72 06:37:00* Test Item Value Reference Range Interpretation Comments BUN/Creatinine Ratio (test code = 3097-3) 16 - [facility] GrapevineEstimat Glomerular Filtration Rate 2019-07-01 06:37:00* Test Item Value Reference Range Interpretation Comments Estimat Glomerular Filtration Rate (test code = 688765450) 48 >60 L Ranges were taken from the National Kidney Disease Education Program and the [facility] Kidney Foundation literature.Reference ranges:60 or greater: Fnwaye30-30 ( for 3 consecutive months): Chronic kidney disease 15 or less: Kidney failureBaylor Scott & White Medical Center – GrapevineGlucose Ualiz6474-58-47 06:37:00* Test Item Value Reference Range Interpretation Comments Glucose Level (test code = XOG3830) 97 74-118 [facility] GrapevineCalcium Wjakf9217-51-57 06:37:00* Test Item Value Reference Range Interpretation Comments Calcium Level (test code = 10240-6) 8.3 8.4-10.2 L [facility] GrapevineTotal Myzramzlu1198-88-96 06:37:00* Test Item Value Reference Range Interpretation Comments Total Bilirubin (test code = 1975-2) 0.3 0.2-1.2 [facility] GrapevineAspartate Amino Transf (AST/SGOT) 2019-07-01 06:37:00* Test Item Value Reference Range Interpretation Comments Aspartate Amino Transf (AST/SGOT) (test code = Aspartate Amino Transf (AST/SGOT)) 17 -34 [facility] GrapevineAlanine Aminotransferase (ALT/SGPT) 2019-07-01 06:37:00* Test Item Value Reference Range Interpretation Comments Alanine Aminotransferase (ALT/SGPT) (test code = 1742-6) 10 0-55 [facility] GrapevineTotal Cnchipv0088-75-08 06:37:00* Test Item Value Reference Range Interpretation Comments Total Protein (test code = 2885-2) 6.0 6.5-8.1 L [facility] GrapevineAlbumin2020-02-06 06:37:00* Test Item Value Reference Range Interpretation Comments Albumin (test code = 1751-7) 2.4 3.5-5.0 L [facility] [facility]rapevineGlobulin2020-02-06 06:37:00* Test Item Value Reference Range Interpretation Comments Globulin (test code = 68009-1) 3.6 2.3-3.5 H [facility]vineAlbumin/Globulin Seaug6394-83-82 06:37:00 * Test Item Value Reference Range Interpretation Comments Albumin/Globulin Ratio (test code = 1759-0) 0.7 0.8-2.0 L [facility]vineAlkaline Tqppobvrxti3499-26-20 06:37:00* Test Item Value Reference Range Interpretation Comments Alkaline Phosphatase (test code = 6768-6) 69 40-150 [facility] thiamine measurement (moles/volume)2019-06-30 12:26:00* Test Item Value Reference Range Interpretation Comments Vitamin B1 Level (test code = 86238-8) 301.0 66.5-200.0 Performed at: [employer] [id number] [employer]: Lia Martinez MD, Phone: [phone] Hermann [facility] Hospitalerum or plasma thiamine measurement (moles/volume)2019-06-30 12:26:00* Test Item Value Reference Range Interpretation Comments Vitamin B1 Level (test code = 95837-9) 301.0 66.5-200.0 Performed at: [employer] [id number] [employer]: Lia Martinez MD, Phone: [phone] Hermann Southeast Hospitalerum or plasma thiamine measurement (moles/volume)2019-06-30 12:26:00* Test Item Value Reference Range Interpretation Comments Vitamin B1 Level (test code = 40269-1) 301.0 nmol/L 66.5-200.0 Performed at: [address] [id number] [employer]: Lia Martinez MD, Phone: [phone] GrapevineWhite Blood Hnwqj7953-67-19 05:53:00* Test Item Value Reference Range Interpretation Comments White Blood Count (test code = 6690-2) 5.45 4.8-10.8 [facility]vineRed Blood Ksvfp5423-82-06 05:53:00* Test Item Value Reference Range Interpretation Comments Red Blood Count (test code = 789-8) 3.66 3.6-5.1 [facility]vineHemoglobin2020-02-05 05:53:00* Test Item Value Reference Range Interpretation Comments Hemoglobin (test code = 67437-7) 11.0 12.0-16.0 L [facility] GrapevineHematocrit2020-02-05 05:53:00* Test Item Value Reference Range Interpretation Comments Hematocrit (test code = 4544-3) 32.7 34.2-44.1 L [facility] GrapevineMean Corpuscular Eeygpw4017-66-09 05:53:00* Test Item Value Reference Range Interpretation Comments Mean Corpuscular Volume (test code = 787-2) 89.3 81-99 [facility] GrapevineMean Corpuscular Hhnamwxsgt9569-95-71 05:53:00* Test Item Value Reference Range Interpretation Comments Mean Corpuscular Hemoglobin (test code = 785-6) 30.1 28-32 [facility] GrapevineMean Corpuscular Hemoglobin Concent 2019-06-30 05:53:00* Test Item Value Reference Range Interpretation Comments Mean Corpuscular Hemoglobin Concent (test code = 786-4) 33.6 31-35 [facility]vineRed Cell Distribution Qrlst0376-35-02 05:53:00* Test Item Value Reference Range Interpretation Comments Red Cell Distribution Width (test code = 86426-7) 12.7 11.7 -14.4 [facility] GrapevinePlatelet Qrqio1867-06-33 05:53:00* Test Item Value Reference Range Interpretation Comments Platelet Count (test code = 777-3) 233 140-360 [facility] GrapevineNeutrophils (%) (Auto)2019-06-30 05:53:00 * Test Item Value Reference Range Interpretation Comments Neutrophils (%) (Auto) (test code = 24801-2) 48.6 38.7-80.0 [facility] GrapevineLymphocytes (%) (Auto)2019-06-30 05:53:00 * Test Item Value Reference Range Interpretation Comments Lymphocytes (%) (Auto) (test code = 736-9) 27.9 18.0-39.1 [facility]rapevineMonocytes (%) (Auto)2019-06-30 05:53:00* Test Item Value Reference Range Interpretation Comments Monocytes (%) (Auto) (test code = 5905-5) 11.2 4.4-11.3 [facility]vineEosinophils (%) (Auto)2019-06-30 05:53:00 * Test Item Value Reference Range Interpretation Comments Eosinophils (%) (Auto) (test code = 713-8) 11.0 0.0-6.0 H [facility]vineBasophils (%) (Auto)2019-06-30 05:53:00* Test Item Value Reference Range Interpretation Comments Basophils (%) (Auto) (test code = 706-2) 0.9 0.0-1.0 [facility] GrapevineIM GRANULOCYTES %2019-06-30 05:53:00* Test Item Value Reference Range Interpretation Comments IM GRANULOCYTES % (test code = IM GRANULOCYTES %) 0.4 0.0- 1.0 [facility]rapevineNeutrophils # (Auto)2019-06-30 05:53:00* Test Item Value Reference Range Interpretation Comments Neutrophils # (Auto) (test code = 751-8) 2.7 2.1-6.9 [facility]rapevineLymphocytes # (Auto)2019-06-30 05:53:00* Test Item Value Reference Range Interpretation Comments Lymphocytes # (Auto) (test code = 74205-2) 1.5 1.0-3.2 [facility]vineMonocytes # (Auto)2019-06-30 05:53:00* Test Item Value Reference Range Interpretation Comments Monocytes # (Auto) (test code = 742-7) 0.6 0.2-0.8 [facility]vineEosinophils # (Auto)2019-06-30 05:53:00* Test Item Value Reference Range Interpretation Comments Eosinophils # (Auto) (test code = 711-2) 0.6 0.0-0.4 H [facility]vineBasophils # (Auto)2019-06-30 05:53:00* Test Item Value Reference Range Interpretation Comments Basophils # (Auto) (test code = 704-7) 0.1 0.0-0.1 [facility] GrapevineAbsolute Immature Granulocyte (auto 2019-06-30 05:53:00* Test Item Value Reference Range Interpretation Comments Absolute Immature Granulocyte (auto (anjali t code = Absolute Immature Granulocyte (auto) 0.02 0-0.1 [facility] GrapevineCTA XQNPP7502-86-02 18:23:00 [facility] [address] [place] [address] Patient Name: YUE RAMSEY MR #: [id number] : 1935 Age/Sex: 83/F Req #: [id number] Adm Physician: SANDRA CHASE MD Ordered by: ILANA PALMER MD Report #: [id number] [facility] Room[facility]Bed: [facility] Procedure: [id number]/CTA BRAIN Exam Date: 06/29/19 Exam Time: 1701 REPORT STATUS: Signed History:<>, Comparison studies:None Technique: Axial images were obtained from the thoracic inlet. Coronal and sagittal images reconstructed from the axial d caroline. Additional multiplanar coronal, sagittal and oblique MIP images as well a s 3-D-volume rendered images of the carotid arteries and [place] were reformatted from the axial [...] with prominent posterior communicating arteries (fet al-type REMOTELY OPERATED VEHICLE origins). Anatomical variants: Anterior communicating artery: Patient . Pcoms: Bilateral -type REMOTELY OPERATED VEHICLE origins. Vertebral arteries: Rig ht is dominant. [...] 06/29/191908 COPY TO: ILANA PALMER MD CTA [id number] 18:23:00 [place] [address] Patient Name: YUE RAMSEY MR #: [id number] : 1935 Age/Sex: 83/F Req #: [id number] Adm Physician: SANDRA CHASE MD Ordered by: ILANA PALMER MD Report #: [id number] Location: MED/SURG3 Room/Bed: [facility] Procedure: [id number]/CTA NECK Exam Date: 06/29/19 Exam Time: 1701 REPORT STATUS: Signed History:<>, Comparison studies:None Technique: Axial images were obtained from the thoracic inlet. Coronal and sagittal images reconstructed from the axial d caroline. Additional multiplanar coronal, sagittal and oblique MIP images as well a s 3-D-volume rendered images of the carotid arteries and [place] were reformatted from the axial [...] with prominent posterior communicating arteries (fet al-type REMOTELY OPERATED VEHICLE origins). Anatomical variants: Anterior communicating artery: Patient . Pcoms: Bilateral -type REMOTELY OPERATED VEHICLE origins. Vertebral arteries: Rig ht is dominant. [...] COPY TO: ILANA PALMER MD MRI BRAIN [id number] 14:48:00 [place] [address] Patient Name: YUE RAMSEY MR #: [id number] : 1935 Age/Sex: 83/F Req #: [id number] Adm Physician: SANDRA CHASE MD Ordered by: ILANA PALMER MD Report #: [id number] Location: MED/SURG3 Room/Bed: [facility] Procedure: [id number] MRI/MRI BRAIN WO [...] PM Dictat ed By: JOON MARIN MD 145 COPY TO: ILANA PALMER MD Tfbsvrq8244-80-67 19:49:00* Test Item Value Reference Range Interpretation Comments Ammonia (test code = 44337-0) 23 31-123 L [facility] GrapevineAmmonia2020-02-03 19:49:00* Test Item Value Reference Range Interpretation Comments Ammonia (test code = 59186-8) 23 31-123 L [facility] GrapevineAmmonia2020-02-03 19:49:00* Test Item Value Reference Range Interpretation Comments Ammonia (test code = 43914-2) 23 31-123 L [facility] GrapevineCT BRAIN [id number] 19:00:[address], [place], [place] [address] Patient Name: YUE RAMSEY MR #: [id number] : 1935 Age/Sex: 83/F Req #: [id number] Adm Physician: SANDRA CHASE MD Ordered by: SANDRA CHASE MD Report #: [id number] Location: [facility] Room/Bed: [facility] Procedure: [id number] CT/CT BRAIN WO Exam Date: 06/28/19 Exam [...] 06/28/191903 COPY TO: SANDRA CHASE MD Urine [id number] 18:25:00* Test Item Value Reference Range Interpretation Comments Urine WBC (test code = 5821-4) NONE 0-5 [facility] GrapevineUrine FRE3181-29-89 18:25:00* Test Item Value Reference Range Interpretation Comments Urine RBC (test code = 18497-3) NONE 0-5 [facility] GrapevineUrine Mkeziaqf9503-35-61 18:25:00* Test Item Value Reference Range Interpretation Comments Urine Bacteria (test code = 42088-8) RARE NONE [facility] GrapevineUrine Epithelial Bsawt2628-81-93 18:25:00 * Test Item Value Reference Range Interpretation Comments Urine Epithelial Cells (test code = 25780-6) FEW NONE [facility]2020-02-03 18:23:00* Test Item Value Reference Range Interpretation Comments Ammonia (test code = 44691-5) 23 [facility]2020-02-03 18:23:00* Test Item Value Reference Range Interpretation Comments Ammonia (test code = 86932-0) 23 [facility]2020-02-03 18:23:00* Test Item Value Reference Range Interpretation Comments Ammonia (test code = 88315-2) 23 ug/dL [facility] GrapevineUrine Ovsrr1956-95-57 18:20:00* Test Item Value Reference Range Interpretation Comments Urine Color (test code = 5778-6) YELLOW YELLOW [facility] GrapevineUrine Auetemd1147-31-97 18:20:00* Test Item Value Reference Range Interpretation Comments Urine Clarity (test code = 92200-2) SL CLOUDY CLEAR [facility] GrapevineUrine Specific Xxcuipr2123-47-47 18:20:00 * Test Item Value Reference Range Interpretation Comments Urine Specific [place] (test code = 5811-5) 1.025 1.010-1.02 5 [facility] GrapevineUrine vA9328-67-55 18:20:00* Test Item Value Reference Range Interpretation Comments Urine pH (test code = 65628-3) 7 5-7 [facility]vineUrine Leukocyte Ncmzgpmt5624-12-65 18:20:00* Test Item Value Reference Range Interpretation Comments Urine Leukocyte Esterase (test code = 5799-2) NEGATIVE NEGATIVE [facility] GrapevineUrine Bwxuyaw8449-17-12 18:20:00* Test Item Value Reference Range Interpretation Comments Urine Nitrite (test code = 75111-6) NEGATIVE NEGATIVE [facility] GrapevineUrine Frvykay7503-18-95 18:20:00* Test Item Value Reference Range Interpretation Comments Urine Protein (test code = 5804-0) NEGATIVE NEGATIVE [facility] G[facility]vineUrine Glucose (UA)2019-06-28 18:20:00* Test Item Value Reference Range Interpretation Comments Urine Glucose (UA) (test code = 2349-9) NEGATIVE NEGATIVE [facility] G[facility]vineUrine Jvaksch8237-76-40 18:20:00* Test Item Value Reference Range Interpretation Comments Urine Ketones (test code = 89016-6) NEGATIVE NEGATIVE [facility] Vxylpezhxufc0747-53-45 18:20:00* Test Item Value Reference Range Interpretation Comments Urine Urobilinogen (test code = 36506-5) 0.2 0.2-1 [facility]vineUrine Pijipmszt3667-49-22 18:20:00* Test Item Value Reference Range Interpretation Comments Urine Bilirubin (test code = 1978-6) NEGATIVE NEGATIVE [facility]vineUrine Pwdmh5115-04-04 18:20:00* Test Item Value Reference Range Interpretation Comments Urine Blood (test code = 67016-6) NEGATIVE NEGATIVE [facility] GrapevineTriglycerides Wmhoe5383-59-81 06:33:00* Test Item Value Reference Range Interpretation Comments Triglycerides Level (test code = 2571-8) 94 0-149 [facility]rapevineCholesterol Gxawh8051-11-16 06:33:00* Test Item Value Reference Range Interpretation Comments Cholesterol Level (test code = 2093-3) 95 0-199 Less than 200 mg/dL Low Ixvv133 - 239 mg/dL Borderline Rdtv926 m g/dl and greater High Risk [facility] GrapevineLDL Pgxnuhydfqr1002-98-60 06:33:00* Test Item Value Reference Range Interpretation Comments LDL Cholesterol (test code = 2089-1) 49 60-130 L [facility] Zmcxfopfysv5870-99-63 06:33:00* Test Item Value Reference Range Interpretation Comments HDL Cholesterol (test code = 2085-9) 27 40-60 L [facility]vineCholesterol/HDL Tiwxh3772-31-58 06:33:00 * Test Item Value Reference Range Interpretation Comments Cholesterol/HDL Ratio (test code = 9830-1) 3.5 3.0-3.6 [facility] GrapevineTriglycerides Uaist2875-50-76 06:33:00* Test Item Value Reference Range Interpretation Comments Triglycerides Level (test code = 2571-8) 94 0-149 [facility] GrapevineCholesterol Xryhw4987-02-21 06:33:00* Test Item Value Reference Range Interpretation Comments Cholesterol Level (test code = 2093-3) 95 0-199 Less than 200 mg/dL Low Twvu235 - 239 mg/dL Borderline Iocy860 m g/dl and greater High Risk [facility] GrapevineLDL Vzxlsltypbl1950-91-94 06:33:00* Test Item Value Reference Range Interpretation Comments LDL Cholesterol (test code = 2089-1) 49 60-130 L [facility] Tmnguzzqozm2599-28-19 06:33:00* Test Item Value Reference Range Interpretation Comments HDL Cholesterol (test code = 2085-9) 27 40-60 L [facility]vineCholesterol/HDL Kosmw8868-95-66 06:33:00 * Test Item Value Reference Range Interpretation Comments Cholesterol/HDL Ratio (test code = 9830-1) 3.5 3.0-3.6 [facility] GrapevineCreatine Kinase UO4570-57-78 03:11:00* Test Item Value Reference Range Interpretation Comments Creatine Kinase MB (test code = 59121-0) 0.30 0-5.0 [facility] GrapevineTroponin R7763-21-57 03:11:00* Test Item Value Reference Range Interpretation Comments Troponin I (test code = TNE6892) < 0.001 0-0.300 [facility] GrapevineCreatine Mgofnj1051-92-25 03:01:00* Test Item Value Reference Range Interpretation Comments Creatine Kinase (test code = 2157-6) 17 29-168 L [facility] GrapevineB-Type Natriuretic Vsmqbbl1052-07-28 09:37:00* Test Item Value Reference Range Interpretation Comments B-Type Natriuretic Peptide (test code = 15257-6) 232.4 0-100 H [facility] GrapevineCHEST SINGLE (PORTABLE)2019-06-27 09:27:00 [place] [address] Patient Name: YUE RAMSEY MR #: [id number] : 1935 Age/Sex: 83/F Req #: [id number] Adm Physician: Ordered by: CANDIDA ROSE MD Report #: [id number] Location: ER Room/Bed: Procedure: [id number] DX /CHEST SINGLE (PORTABLE) Exam Date: 06/27/19 [...] COPY TO: CANDIDA ROSE MD Lactic Acid Zvfki6914-70-07 09:07:00* Test Item Value Reference Range Interpretation Comments Lactic Acid Level (test code = Lactic Acid Level) 2.3 0.5- 2.0 HH Results repeated and called to ELIZABETH ORNELAS at 0905 on 06/27/19 by Madhu graf Read back and verified.[facility] GrapevineLactic Acid Ingtz2658-14-46 09:07:00* Test Item Value Reference Range Interpretation Comments Lactic Acid Level (test code = Lactic Acid Level) 2.3 0.5- 2.0 HH Results repeated and called to ELIZABETH ORNELAS at 09 on 06/27/19 by Madhu graf Read back and verified.[facility] GrapevineLactic Acid Imwhz0663-08-96 09:07:00* Test Item Value Reference Range Interpretation Comments Lactic Acid Level (test code = Lactic Acid Level) 2.3 0.5- 2.0 HH Results repeated and called to ELIZABETH ORNELAS at 09 on 06/27/19 by Madhu graf Read back and verified.[facility] GrapevineFluoroscopic procedure less than one hour izjswdrl4693-91-62 07:10:00* Test Item Value Reference Range Interpretation Comments Lactic Acid Level (test code = Lactic Acid Level) 2.3 0.5- 2.0 Results repeated and called to ELIZABETH ORNELAS at 0905 on 06/27/19 by Madhu graf Read back and verified.[facility] culture 2019-06-27 07:10:00* Test Item Value Reference Range Interpretation Comments Blood Culture (test code = 14624815) NO GROWTH AFTER 5 DAYS, FINAL REPORT [facility] GrapevineFluoroscopic procedure less than one hour azrsaipm6920-92-77 07:10:00* Test Item Value Reference Range Interpretation Comments Lactic Acid Level (test code = Lactic Acid Level) 2.3 0.5- 2.0 Results repeated and called to ELIZABETH ORNELAS at 0905 on 06/27/19 by Madhu graf Read back and verified.[facility] culture 2019-06-27 07:10:00* Test Item Value Reference Range Interpretation Comments Blood Culture (test code = 73269112) NO GROWTH AFTER 5 DAYS, FINAL REPORT [facility]2020-02-02 07:10:00* Test Item Value Reference Range Interpretation Comments Blood Culture (test code = 52322725) NO GROWTH AFTER 5 DAYS, FINAL REPORT [facility] GrapevineUS RENAL RETROPERITONEAL ELJL5963-80-80 16:48:00 [facility] [address] [place] [address] Patient Name: YUE RAMSEY MR #: [id number] : 1935 Age/Sex: 83/F Req #: [id number] Adm Physician: Ordered by: SHAILA LANDA MD Report #: [id number] Location: US Room/Bed: Procedure: [id number] US/U S RENAL RETROPERITONEAL COMP Exam Date: 06/22/19 Adela strange Time: 1620 REPORT STATUS: Signed EXAM: Renal Ultrasound INDICATION: [...] TO: SHAILA LANDA MD ABDOMEN-1VIEW (KUB)2019-06-22 16:16:00 [place] [address] Patient Name: YUE RAMSEY MR #: [id number] : 1935 Age/Sex: 83/F Req #: [id number] Adm Physician: Ordered by: SHAILA LANDA MD Report #: [id number] Location: US Room/Bed: Procedure: [id number] DX/A BDOMEN-1VIEW (KUB) Exam Date: 06/22/19 Exam Time: 20 REPORT STATUS: Signed Exam: K UB [...] 06/22/191616 COPY TO: SHAILA LANDA MD Urine XYP8713-94-80 07:58:00* Test Item Value Reference Range Interpretation Comments Urine WBC (test code = 5821-4) 0-5 0-5 [facility] G[facility]vineUrine SRJ9225-06-29 07:58:00* Test Item Value Reference Range Interpretation Comments Urine RBC (test code = 00047-8) 0-5 0-5 [facility] G[facility]vineUrine Snlhnpad2412-56-02 07:58:00* Test Item Value Reference Range Interpretation Comments Urine Bacteria (test code = 70290-7) RARE NONE [facility] GrapevineUrine Epithelial Lzogt7673-55-37 07:58:00 * Test Item Value Reference Range Interpretation Comments Urine Epithelial Cells (test code = 28677-3) RARE NONE [facility] GrapevineUrine OCD8911-99-35 07:58:00* Test Item Value Reference Range Interpretation Comments Urine WBC (test code = 5821-4) 0-5 0-5 [facility] GrapevineUrine SUL9309-14-61 07:58:00* Test Item Value Reference Range Interpretation Comments Urine RBC (test code = 37590-3) 0-5 0-5 [facility]vineUrine Bsvsopkl4588-40-33 07:58:00* Test Item Value Reference Range Interpretation Comments Urine Bacteria (test code = 13912-7) RARE NONE [facility] GrapevineUrine Epithelial Ziwra3287-17-47 07:58:00 * Test Item Value Reference Range Interpretation Comments Urine Epithelial Cells (test code = 29358-1) RARE NONE [facility] GrapevineUrine OFE4017-37-71 07:58:00* Test Item Value Reference Range Interpretation Comments Urine WBC (test code = 5821-4) 0-5 0-5 [facility] G[facility]vineUrine CTC7108-56-59 07:58:00* Test Item Value Reference Range Interpretation Comments Urine RBC (test code = 64779-8) 0-5 0-5 [facility]vineUrine Vdtrkrmv3392-10-63 07:58:00* Test Item Value Reference Range Interpretation Comments Urine Bacteria (test code = 11956-8) RARE NONE [facility] GrapevineUrine Epithelial Sofkz4434-03-97 07:58:00 * Test Item Value Reference Range Interpretation Comments Urine Epithelial Cells (test code = 02634-1) RARE NONE [facility] G[facility]vineUrine Yqlir8846-67-32 07:25:00* Test Item Value Reference Range Interpretation Comments Urine Color (test code = 5778-6) YELLOW YELLOW [facility] G[facility]vineUrine Qpsxrqf4097-32-01 07:25:00* Test Item Value Reference Range Interpretation Comments Urine Clarity (test code = 03585-2) CLEAR CLEAR [facility] GrapevineUrine Specific Dfdqdfa5627-21-05 07:25:00 * Test Item Value Reference Range Interpretation Comments Urine Specific [place] (test code = 5811-5) 1.025 1.010-1.02 5 [facility] GrapevineUrine gT2296-72-84 07:25:00* Test Item Value Reference Range Interpretation Comments Urine pH (test code = 30086-2) 6 5-7 [facility]vineUrine Leukocyte Difshxmc4276-45-80 07:25:00* Test Item Value Reference Range Interpretation Comments Urine Leukocyte Esterase (test code = 5799-2) TRACE NEGATIVE H [facility] GrapevineUrine Bonixlc1045-44-98 07:25:00* Test Item Value Reference Range Interpretation Comments Urine Nitrite (test code = 07249-9) NEGATIVE NEGATIVE [facility]vineUrine Ghxpluh9023-91-73 07:25:00* Test Item Value Reference Range Interpretation Comments Urine Protein (test code = 5804-0) NEGATIVE NEGATIVE [facility] Glucose (UA)2019-05-12 07:25:00* Test Item Value Reference Range Interpretation Comments Urine Glucose (UA) (test code = 2349-9) NEGATIVE NEGATIVE [facility]vineUrine Zhjritn8436-02-36 07:25:00* Test Item Value Reference Range Interpretation Comments Urine Ketones (test code = 31540-2) NEGATIVE NEGATIVE [facility] Ksfqytscebfi3123-95-01 07:25:00* Test Item Value Reference Range Interpretation Comments Urine Urobilinogen (test code = 84340-8) 0.2 0.2-1 [facility] Mxvwjiyar7081-17-03 07:25:00* Test Item Value Reference Range Interpretation Comments Urine Bilirubin (test code = 1978-6) NEGATIVE NEGATIVE [facility] Djily1294-32-88 07:25:00* Test Item Value Reference Range Interpretation Comments Urine Blood (test code = 55660-3) TRACE NEGATIVE [facility]vineU[facility] Wsisz1345-51-47 07:25:00* Test Item Value Reference Range Interpretation Comments Urine Color (test code = 5778-6) YELLOW YELLOW [facility]vineU[facility] Mafhxva3261-37-45 07:25:00* Test Item Value Reference Range Interpretation Comments Urine Clarity (test code = 56845-1) CLEAR CLEAR [facility]vineU[facility] Specific Kshqxfu1238-17-82 07:25:00 * Test Item Value Reference Range Interpretation Comments Urine Specific [place] (test code = 5811-5) 1.025 1.010-1.02 5 [facility] zF3794-51-12 07:25:00* Test Item Value Reference Range Interpretation Comments Urine pH (test code = 28473-7) 6 5-7 [facility] Leukocyte Ppoyggud3939-65-27 07:25:00* Test Item Value Reference Range Interpretation Comments Urine Leukocyte Esterase (test code = 5799-2) TRACE NEGATIVE H [facility] Pojvufc5975-40-24 07:25:00* Test Item Value Reference Range Interpretation Comments Urine Nitrite (test code = 25838-1) NEGATIVE NEGATIVE [facility] Zguudqx3525-16-49 07:25:00* Test Item Value Reference Range Interpretation Comments Urine Protein (test code = 5804-0) NEGATIVE NEGATIVE [facility] Glucose (UA)2019-05-12 07:25:00* Test Item Value Reference Range Interpretation Comments Urine Glucose (UA) (test code = 2349-9) NEGATIVE NEGATIVE [facility] Ydfkpat7831-24-24 07:25:00* Test Item Value Reference Range Interpretation Comments Urine Ketones (test code = 69383-4) NEGATIVE NEGATIVE [facility] Scuugijztcms9564-17-51 07:25:00* Test Item Value Reference Range Interpretation Comments Urine Urobilinogen (test code = 09218-7) 0.2 0.2-1 [facility] Nxaitgvpm8597-03-11 07:25:00* Test Item Value Reference Range Interpretation Comments Urine Bilirubin (test code = 1978-6) NEGATIVE NEGATIVE [facility] Vbcec6090-62-59 07:25:00* Test Item Value Reference Range Interpretation Comments Urine Blood (test code = 00579-2) TRACE NEGATIVE [facility] Hwgaf5320-70-13 07:25:00* Test Item Value Reference Range Interpretation Comments Urine Color (test code = 5778-6) YELLOW YELLOW [facility] Dlsjhzm7156-73-01 07:25:00* Test Item Value Reference Range Interpretation Comments Urine Clarity (test code = 63878-6) CLEAR CLEAR [facility] Specific Brrppen2005-55-79 07:25:00 * Test Item Value Reference Range Interpretation Comments Urine Specific [place] (test code = 5811-5) 1.025 1.010-1.02 5 [facility] wE5542-62-09 07:25:00* Test Item Value Reference Range Interpretation Comments Urine pH (test code = 59927-3) 6 5-7 [facility] Leukocyte Ajfwpnfd2419-23-65 07:25:00* Test Item Value Reference Range Interpretation Comments Urine Leukocyte Esterase (test code = 5799-2) TRACE NEGATIVE H [facility] Fxdtibz9875-89-05 07:25:00* Test Item Value Reference Range Interpretation Comments Urine Nitrite (test code = 00595-0) NEGATIVE NEGATIVE [facility] Zzoywqc3516-82-21 07:25:00* Test Item Value Reference Range Interpretation Comments Urine Protein (test code = 5804-0) NEGATIVE NEGATIVE [facility] Glucose (UA)2019-05-12 07:25:00* Test Item Value Reference Range Interpretation Comments Urine Glucose (UA) (test code = 2349-9) NEGATIVE NEGATIVE [facility] Gtgxwiy4245-02-40 07:25:00* Test Item Value Reference Range Interpretation Comments Urine Ketones (test code = 00223-0) NEGATIVE NEGATIVE [facility] Bottfeffqdqx2010-12-39 07:25:00* Test Item Value Reference Range Interpretation Comments Urine Urobilinogen (test code = 37818-6) 0.2 0.2-1 [facility] Pfffqnsvs6471-46-43 07:25:00* Test Item Value Reference Range Interpretation Comments Urine Bilirubin (test code = 1978-6) NEGATIVE NEGATIVE [facility] Wldgt8607-19-06 07:25:00* Test Item Value Reference Range Interpretation Comments Urine Blood (test code = 75018-4) TRACE NEGATIVE [facility] Wzbnzxr4001-44-05 13:09:00* Test Item Value Reference Range Interpretation Comments Urine Culture (test code = 630-4) No Result Data Provided [facility] Dcknzmj4053-13-19 13:09:00* Test Item Value Reference Range Interpretation Comments Urine Culture (test code = 630-4) No Result Data Provided [facility] Swmztkl9809-77-17 13:09:00* Test Item Value Reference Range Interpretation Comments Urine Culture (test code = 630-4) No Result Data Provided [facility] Eabzyca7540-65-42 13:09:00* Test Item Value Reference Range Interpretation Comments Urine Culture (test code = 630-4) No Result Data Provided [facility] Anohqyg9391-14-98 13:09:00* Test Item Value Reference Range Interpretation Comments Urine Culture (test code = 630-4) No Result Data Provided [facility] Cnyrynm3365-37-68 13:09:00* Test Item Value Reference Range Interpretation Comments Urine Culture (test code = 630-4) No Result Data Provided [facility] SQE6337-33-42 10:01:00* Test Item Value Reference Range Interpretation Comments Urine WBC (test code = 5821-4) 6-10 0-5 H [facility] KNW9879-47-89 10:01:00* Test Item Value Reference Range Interpretation Comments Urine RBC (test code = 59501-6) 0-5 0-5 [facility] Xvrsnmqb6052-49-96 10:01:00* Test Item Value Reference Range Interpretation Comments Urine Bacteria (test code = 79800-2) FEW NONE [facility] Epithelial Izcxw2106-65-21 10:01:00 * Test Item Value Reference Range Interpretation Comments Urine Epithelial Cells (test code = 82553-5) MODERATE NONE [facility] Opufg0076-56-30 09:52:00* Test Item Value Reference Range Interpretation Comments Urine Color (test code = 5778-6) YELLOW YELLOW [facility] Jigeuro4061-95-01 09:52:00* Test Item Value Reference Range Interpretation Comments Urine Clarity (test code = 53852-6) CLEAR CLEAR [facility] Specific Kbuyyyb6943-11-25 09:52:00 * Test Item Value Reference Range Interpretation Comments Urine Specific [place] (test code = 5811-5) 1.025 1.010-1.02 5 [facility] xR4793-77-36 09:52:00* Test Item Value Reference Range Interpretation Comments Urine pH (test code = 11909-8) 6 5-7 [facility] Leukocyte Erjpxdvh0616-03-78 09:52:00* Test Item Value Reference Range Interpretation Comments Urine Leukocyte Esterase (test code = 96685-2) SMALL NEGATIV E [facility] Vxfcdnv0690-39-09 09:52:00* Test Item Value Reference Range Interpretation Comments Urine Nitrite (test code = 33425-1) NEGATIVE NEGATIVE [facility] Myhpstt9579-00-54 09:52:00* Test Item Value Reference Range Interpretation Comments Urine Protein (test code = 83550-4) 1+ NEGATIVE H [facility] Glucose (UA)2019-04-24 09:52:00* Test Item Value Reference Range Interpretation Comments Urine Glucose (UA) (test code = 09917-9) NEGATIVE NEGATIVE [facility] Lenrdpr2459-45-52 09:52:00* Test Item Value Reference Range Interpretation Comments Urine Ketones (test code = 58237-7) TRACE NEGATIVE H [facility] Uqtnkwrtyjpz3345-59-67 09:52:00* Test Item Value Reference Range Interpretation Comments Urine Urobilinogen (test code = 69260-4) 0.2 0.2-1 [facility] Imywnywtx4511-09-08 09:52:00* Test Item Value Reference Range Interpretation Comments Urine Bilirubin (test code = 1977-8) NEGATIVE NEGATIVE [facility] Sihyt2719-17-54 09:52:00* Test Item Value Reference Range Interpretation Comments Urine Blood (test code = 31063-1) NEGATIVE NEGATIVE [facility]vineB[facility] urine iarujqn2558-41-90 07:33:00* Test Item Value Reference Range Interpretation Comments Urine Culture (test code = 630-4) ENTEROCOCCUS FAECALIS [facility]vineBacterial urine uuvcrla8463-60-81 07:33:00* Test Item Value Reference Range Interpretation Comments Urine Culture (test code = 630-4) ENTEROCOCCUS FAECALIS [facility]vineCT ABDOMEN/PELVIS L3114-24-36 10:56:00 [facility] [address] [address] Patient Name: YUE RAMSEY MR #: [id number] : 1935 Age/Sex: 83/F Req #: [id number] Adm Physician: Ordered by: GIRISH BROWN MD Report #: [id number] Location: ER Room/Bed: Procedure: [id number] C T/CT ABDOMEN/PELVIS W Exam Date: 04/15/19 Exam Time: 1010 REPORT STATUS: Signed EXAM : CT Abdomen and Pelvis WITH intravenous contrast INDICATION: Abdominal p ain COMPARISON: None. TECHNIQUE: Abdomen and pelvis were scanned utili Leversenseng a multidetector helical scanner from the lung [...] 11:04 AM Dictated By: GILLES JIMENEZ MD 110 Transcribed By: GELY on 04/15/19 1104 COPY TO: GIRISH BROWN MD Sodium Yuucj2972-11-50 09:55:00* Test Item Value Reference Range Interpretation Comments Sodium Level (test code = 2951-2) 142 136-145 [facility]vinePot[facility] Kfabr4417-13-36 09:55:00* Test Item Value Reference Range Interpretation Comments Potassium Level (test code = 2823-3) 3.7 3.5-5.1 [facility]vineChloride Odwlo3291-76-85 09:55:00* Test Item Value Reference Range Interpretation Comments Chloride Level (test code = 2075-0) 106 98-107 [facility] G[facility]vineCarbon Dioxide Nkcwn4657-63-76 09:55:00* Test Item Value Reference Range Interpretation Comments Carbon Dioxide Level (test code = 2028-9) 25 22-29 [facility] GrapevineAnion Aua3926-96-47 09:55:00* Test Item Value Reference Range Interpretation Comments Anion Gap (test code = 48560-0) 14.7 8-16 [facility]vineBlood Urea Wvtaqsro0527-55-27 09:55:00* Test Item Value Reference Range Interpretation Comments Blood Urea Nitrogen (test code = 3094-0) 20 7-26 [facility]vineCreatinine2019-11-21 09:55:00* Test Item Value Reference Range Interpretation Comments Creatinine (test code = 2160-0) 1.39 0.57-1.11 H [facility]vineBUN/Creatinine Gmpye1814-37-20 09:55:00* Test Item Value Reference Range Interpretation Comments BUN/Creatinine Ratio (test code = 3097-3) 14 6-25 [facility]rapevineEstimat Glomerular Filtration Rate 2019-04-15 09:55:00* Test Item Value Reference Range Interpretation Comments Estimat Glomerular Filtration Rate (test code = 327570259) 36 >60 L Ranges were taken from the National Kidney Disease Education Program and the [facility] literature.Reference ranges:60 or greater: Uykzkd25-32 ( for 3 consecutive months): Chronic kidney disease 15 or less: Kidney failureCHI [facility] Texas Medical CenterGlucose Mivxp9077-09-39 09:55:00* Test Item Value Reference Range Interpretation Comments Glucose Level (test code = QXX2249) 106 74-118 [facility]vineCalcium Rryam8192-40-82 09:55:00* Test Item Value Reference Range Interpretation Comments Calcium Level (test code = 80772-9) 10.0 8.4-10.2 [facility]vineMagnesium Lrzul2664-84-95 09:55:00* Test Item Value Reference Range Interpretation Comments Magnesium Level (test code = 35515-4) 2.1 1.3-2.1 [facility]vineTotal Bxawxqkfq0579-64-43 09:55:00* Test Item Value Reference Range Interpretation Comments Total Bilirubin (test code = 1975-2) 0.6 0.2-1.2 [facility] GrapevineAspartate Amino Transf (AST/SGOT) 2019-04-15 09:55:00* Test Item Value Reference Range Interpretation Comments Aspartate Amino Transf (AST/SGOT) (test code = Aspartate Amino Transf (AST/SGOT)) 33 5-34 [facility]vineAlanine Aminotransferase (ALT/SGPT) 2019-04-15 09:55:00* Test Item Value Reference Range Interpretation Comments Alanine Aminotransferase (ALT/SGPT) (test code = 1742-6) 27 0-55 [facility] GrapevineTotal Isyqmfp6868-07-62 09:55:00* Test Item Value Reference Range Interpretation Comments Total Protein (test code = 2885-2) 7.2 6.5-8.1 [facility] GrapevineAlbumin2019-11-21 09:55:00* Test Item Value Reference Range Interpretation Comments Albumin (test code = 1751-7) 3.7 3.5-5.0 [facility]vineGlobulin2019-11-21 09:55:00* Test Item Value Reference Range Interpretation Comments Globulin (test code = 69020-4) 3.5 2.3-3.5 [facility] GrapevineAlbumin/Globulin Jfzli6629-78-33 09:55:00 * Test Item Value Reference Range Interpretation Comments Albumin/Globulin Ratio (test code = 1759-0) 1.1 0.8-2.0 [facility] G[facility]vineAlkaline Shnibzeezhn2475-71-57 09:55:00* Test Item Value Reference Range Interpretation Comments Alkaline Phosphatase (test code = 6768-6) 87 40-150 [facility] GrapevineB-Type Natriuretic Gsmnmkt2318-14-89 09:55:00* Test Item Value Reference Range Interpretation Comments B-Type Natriuretic Peptide (test code = 26813-1) 136.8 0-100 H [facility]vineCreatine Psavfn0364-18-81 09:55:00* Test Item Value Reference Range Interpretation Comments Creatine Kinase (test code = 2157-6) 76 29-168 [facility] GrapevineCreatine Kinase FI8181-57-09 09:55:00* Test Item Value Reference Range Interpretation Comments Creatine Kinase MB (test code = 32934-8) 3.60 0-5.0 [facility] GrapevineTroponin O1714-37-13 09:55:00* Test Item Value Reference Range Interpretation Comments Troponin I (test code = URV4479) 0.036 0-0.300 [facility] GrapevineLipase2019-11-21 09:55:00* Test Item Value Reference Range Interpretation Comments Lipase (test code = 3040-3) 75 8-78 [facility] Rktrg2575-56-40 09:55:00* Test Item Value Reference Range Interpretation Comments Sodium Level (test code = 2951-2) 142 136-145 [facility]vinePotassium Gbzxb1853-67-21 09:55:00* Test Item Value Reference Range Interpretation Comments Potassium Level (test code = 2823-3) 3.7 3.5-5.1 [facility]vineChloride Meivr5590-68-66 09:55:00* Test Item Value Reference Range Interpretation Comments Chloride Level (test code = 2075-0) 106 98-107 [facility] GrapevineCarbon Dioxide Wlubv5009-83-85 09:55:00* Test Item Value Reference Range Interpretation Comments Carbon Dioxide Level (test code = 2028-9) 25 22-29 [facility] GrapevineAnion Dks9781-15-95 09:55:00* Test Item Value Reference Range Interpretation Comments Anion Gap (test code = 45429-3) 14.7 8-16 [facility] GrapevineBlood Urea Wpuzuxrm8501-95-45 09:55:00* Test Item Value Reference Range Interpretation Comments Blood Urea Nitrogen (test code = 3094-0) 20 7-26 [facility] GrapevineCreatinine2019-11-21 09:55:00* Test Item Value Reference Range Interpretation Comments Creatinine (test code = 2160-0) 1.39 0.57-1.11 H [facility]vineBUN/Creatinine Sbkas8675-29-18 09:55:00* Test Item Value Reference Range Interpretation Comments BUN/Creatinine Ratio (test code = 3097-3) 14 6-25 [facility] GrapevineEstimat Glomerular Filtration Rate 2019-04-15 09:55:00* Test Item Value Reference Range Interpretation Comments Estimat Glomerular Filtration Rate (test code = 411788975) 36 >60 L Ranges were taken from the National Kidney Disease Education Program and the [facility] Foundation literature.Reference ranges:60 or greater: Chdfqo84-52 ( for 3 consecutive months): Chronic kidney disease 15 or less: Kidney failureBaylor Scott & [facility] Center – GrapevineGlucose Nhxki4552-82-85 09:55:00* Test Item Value Reference Range Interpretation Comments Glucose Level (test code = SWF6830) 106 74-118 [facility]vineCalcium Dqmhs3265-35-30 09:55:00* Test Item Value Reference Range Interpretation Comments Calcium Level (test code = 88416-2) 10.0 8.4-10.2 [facility] GrapevineMagnesium Haljo5561-26-10 09:55:00* Test Item Value Reference Range Interpretation Comments Magnesium Level (test code = 22516-9) 2.1 1.3-2.1 [facility]vineTotal Bwnurkcvn4607-98-52 09:55:00* Test Item Value Reference Range Interpretation Comments Total Bilirubin (test code = 1975-2) 0.6 0.2-1.2 [facility] GrapevineAspartate Amino Transf (AST/SGOT) 2019-04-15 09:55:00* Test Item Value Reference Range Interpretation Comments Aspartate Amino Transf (AST/SGOT) (test code = Aspartate Amino Transf (AST/SGOT)) 33 5-34 [facility] GrapevineAlanine Aminotransferase (ALT/SGPT) 2019-04-15 09:55:00* Test Item Value Reference Range Interpretation Comments Alanine Aminotransferase (ALT/SGPT) (test code = 1742-6) 27 0-55 [facility]rapevineTotal Wzduqwj2397-35-20 09:55:00* Test Item Value Reference Range Interpretation Comments Total Protein (test code = 2885-2) 7.2 6.5-8.1 [facility] GrapevineAlbumin2019-11-21 09:55:00* Test Item Value Reference Range Interpretation Comments Albumin (test code = 1751-7) 3.7 3.5-5.0 [facility] GrapevineGlobulin2019-11-21 09:55:00* Test Item Value Reference Range Interpretation Comments Globulin (test code = 43088-6) 3.5 2.3-3.5 [facility]rapevineAlbumin/Globulin Stads3585-45-91 09:55:00 * Test Item Value Reference Range Interpretation Comments Albumin/Globulin Ratio (test code = 1759-0) 1.1 0.8-2.0 [facility] GrapevineAlkaline Ontwlgtthfl2505-04-90 09:55:00* Test Item Value Reference Range Interpretation Comments Alkaline Phosphatase (test code = 6768-6) 87 40-150 [facility] GrapevineB-Type Natriuretic Zkwqgwu6860-34-49 09:55:00* Test Item Value Reference Range Interpretation Comments B-Type Natriuretic Peptide (test code = 91947-7) 136.8 0-100 H [facility]vineCreatine Vbpbqe2723-09-75 09:55:00* Test Item Value Reference Range Interpretation Comments Creatine Kinase (test code = 2157-6) 76 29-168 [facility] GrapevineCreatine Kinase ZP7867-78-66 09:55:00* Test Item Value Reference Range Interpretation Comments Creatine Kinase MB (test code = 28076-1) 3.60 0-5.0 [facility] GrapevineTroponin T9923-64-53 09:55:00* Test Item Value Reference Range Interpretation Comments Troponin I (test code = RRI9285) 0.036 0-0.300 [facility] GrapevineLipase2019-11-21 09:55:00* Test Item Value Reference Range Interpretation Comments Lipase (test code = 3040-3) 75 8-78 [facility] Wqlqh8895-66-43 09:55:00* Test Item Value Reference Range Interpretation Comments Sodium Level (test code = 2951-2) 142 136-145 [facility]vinePotassium Ugdbn1008-43-66 09:55:00* Test Item Value Reference Range Interpretation Comments Potassium Level (test code = 2823-3) 3.7 3.5-5.1 [facility]vineChloride Vjwzn2629-62-63 09:55:00* Test Item Value Reference Range Interpretation Comments Chloride Level (test code = 2075-0) 106 98-107 [facility] GrapevineCarbon Dioxide Ienfj6027-40-39 09:55:00* Test Item Value Reference Range Interpretation Comments Carbon Dioxide Level (test code = 2028-9) 25 22-29 [facility] GrapevineAnion Iug8908-69-81 09:55:00* Test Item Value Reference Range Interpretation Comments Anion Gap (test code = 16243-4) 14.7 8-16 [facility] GrapevineBlood Urea Xsbtilfa9222-67-83 09:55:00* Test Item Value Reference Range Interpretation Comments Blood Urea Nitrogen (test code = 3094-0) 20 7-26 [facility]rapevineCreatinine2019-11-21 09:55:00* Test Item Value Reference Range Interpretation Comments Creatinine (test code = 2160-0) 1.39 0.57-1.11 H [facility]vineBUN/Creatinine Ttecg2289-19-77 09:55:00* Test Item Value Reference Range Interpretation Comments BUN/Creatinine Ratio (test code = 3097-3) 14 6-25 [facility] GrapevineEstimat Glomerular Filtration Rate 2019-04-15 09:55:00* Test Item Value Reference Range Interpretation Comments Estimat Glomerular Filtration Rate (test code = 599275119) 36 >60 L Ranges were taken from the National Kidney Disease Education Program and the [facility] Foundation literature.Reference ranges:60 or greater: Itvyki85-74 ( for 3 consecutive months): Chronic kidney disease 15 or less: Kidney failureBaylor [facility] & [facility] – GrapevineGlucose Upxrc1788-86-83 09:55:00* Test Item Value Reference Range Interpretation Comments Glucose Level (test code = EKZ5643) 106 74-118 [facility] GrapevineCalcium Bmdle6610-85-88 09:55:00* Test Item Value Reference Range Interpretation Comments Calcium Level (test code = 76929-9) 10.0 8.4-10.2 [facility] GrapevineMagnesium Gmsbt7246-54-74 09:55:00* Test Item Value Reference Range Interpretation Comments Magnesium Level (test code = 24538-7) 2.1 1.3-2.1 [facility] GrapevineTotal Oebsvippg1356-12-39 09:55:00* Test Item Value Reference Range Interpretation Comments Total Bilirubin (test code = 1975-2) 0.6 0.2-1.2 [facility] GrapevineAspartate Amino Transf (AST/SGOT) 2019-04-15 09:55:00* Test Item Value Reference Range Interpretation Comments Aspartate Amino Transf (AST/SGOT) (test code = Aspartate Amino Transf (AST/SGOT)) 33 5-34 [facility] GrapevineAlanine Aminotransferase (ALT/SGPT) 2019-04-15 09:55:00* Test Item Value Reference Range Interpretation Comments Alanine Aminotransferase (ALT/SGPT) (test code = 1742-6) 27 0-55 [facility] GrapevineTotal Civxagv2416-49-78 09:55:00* Test Item Value Reference Range Interpretation Comments Total Protein (test code = 2885-2) 7.2 6.5-8.1 [facility]rapevineAlbumin2019-11-21 09:55:00* Test Item Value Reference Range Interpretation Comments Albumin (test code = 1751-7) 3.7 3.5-5.0 [facility] GrapevineGlobulin2019-11-21 09:55:00* Test Item Value Reference Range Interpretation Comments Globulin (test code = 42634-8) 3.5 2.3-3.5 [facility] GrapevineAlbumin/Globulin Afuiw6199-84-61 09:55:00 * Test Item Value Reference Range Interpretation Comments Albumin/Globulin Ratio (test code = 1759-0) 1.1 0.8-2.0 [facility] GrapevineAlkaline Qubmccuznxw4901-71-30 09:55:00* Test Item Value Reference Range Interpretation Comments Alkaline Phosphatase (test code = 6768-6) 87 40-150 [facility] GrapevineB-Type Natriuretic Odvibby8303-32-77 09:55:00* Test Item Value Reference Range Interpretation Comments B-Type Natriuretic Peptide (test code = 97303-9) 136.8 0-100 H [facility] GrapevineCreatine Cjvuiq2581-88-55 09:55:00* Test Item Value Reference Range Interpretation Comments Creatine Kinase (test code = 2157-6) 76 29-168 [facility] GrapevineCreatine Kinase [id number] 09:55:00* Test Item Value Reference Range Interpretation Comments Creatine Kinase MB (test code = 48076-2) 3.60 0-5.0 [facility] GrapevineTroponin [id number] 09:55:00* Test Item Value Reference Range Interpretation Comments Troponin I (test code = QDT7282) 0.036 0-0.300 [facility] GrapevineLipase2019-11-21 09:55:00* Test Item Value Reference Range Interpretation Comments Lipase (test code = 3040-3) 75 8-78 [facility] Pzjju4153-44-99 09:55:00* Test Item Value Reference Range Interpretation Comments Sodium Level (test code = 2951-2) 142 136-145 [facility]vinePotassium Ggpyy2514-74-16 09:55:00* Test Item Value Reference Range Interpretation Comments Potassium Level (test code = 2823-3) 3.7 3.5-5.1 [facility]rapevineChloride Pjmpj0316-00-00 09:55:00* Test Item Value Reference Range Interpretation Comments Chloride Level (test code = 2075-0) 106 98-107 [facility] GrapevineCarbon Dioxide Lbujp8007-44-83 09:55:00* Test Item Value Reference Range Interpretation Comments Carbon Dioxide Level (test code = 2028-9) 25 22-29 [facility] GrapevineAnion Fih7750-37-53 09:55:00* Test Item Value Reference Range Interpretation Comments Anion Gap (test code = 63034-9) 14.7 8-16 [facility] GrapevineBlood Urea Kqmonbqg4265-60-27 09:55:00* Test Item Value Reference Range Interpretation Comments Blood Urea Nitrogen (test code = 3094-0) 20 7-26 [facility] GrapevineCreatinine2019-11-21 09:55:00* Test Item Value Reference Range Interpretation Comments Creatinine (test code = 2160-0) 1.39 0.57-1.11 H [facility] GrapevineBUN/Creatinine Mjecx4183-00-61 09:55:00* Test Item Value Reference Range Interpretation Comments BUN/Creatinine Ratio (test code = 3097-3) 14 6-25 [facility] GrapevineEstimat Glomerular Filtration Rate 2019-04-15 09:55:00* Test Item Value Reference Range Interpretation Comments Estimat Glomerular Filtration Rate (test code = 570337767) 36 >60 L Ranges were taken from the National Kidney Disease Education Program and the [facility] Kid[facility] Foundation literature.Reference ranges:60 or greater: Sxrwzx72-90 ( for 3 consecutive months): Chronic kidney disease 15 or less: Kidney failureBaylor [facility] GrapevineGlucose Gzome8428-40-14 09:55:00* Test Item Value Reference Range Interpretation Comments Glucose Level (test code = ZVR0586) 106 74-118 [facility] GrapevineCalcium Xpkcu0314-82-91 09:55:00* Test Item Value Reference Range Interpretation Comments Calcium Level (test code = 72607-3) 10.0 8.4-10.2 [facility] GrapevineMagnesium Xzszh4623-88-82 09:55:00* Test Item Value Reference Range Interpretation Comments Magnesium Level (test code = 79017-6) 2.1 1.3-2.1 [facility] GrapevineTotal Rilcddfjq5165-14-52 09:55:00* Test Item Value Reference Range Interpretation Comments Total Bilirubin (test code = 1975-2) 0.6 0.2-1.2 [facility] GrapevineAspartate Amino Transf (AST/SGOT) 2019-04-15 09:55:00* Test Item Value Reference Range Interpretation Comments Aspartate Amino Transf (AST/SGOT) (test code = Aspartate Amino Transf (AST/SGOT)) 33 5-34 [facility] GrapevineAlanine Aminotransferase (ALT/SGPT) 2019-04-15 09:55:00* Test Item Value Reference Range Interpretation Comments Alanine Aminotransferase (ALT/SGPT) (test code = 1742-6) 27 0-55 [facility] GrapevineTotal Wwhowdv3583-25-75 09:55:00* Test Item Value Reference Range Interpretation Comments Total Protein (test code = 2885-2) 7.2 6.5-8.1 [facility] GrapevineAlbumin2019-11-21 09:55:00* Test Item Value Reference Range Interpretation Comments Albumin (test code = 1751-7) 3.7 3.5-5.0 [facility] GrapevineGlobulin2019-11-21 09:55:00* Test Item Value Reference Range Interpretation Comments Globulin (test code = 12667-0) 3.5 2.3-3.5 [facility] GrapevineAlbumin/Globulin Wcwzu1315-18-11 09:55:00 * Test Item Value Reference Range Interpretation Comments Albumin/Globulin Ratio (test code = 1759-0) 1.1 0.8-2.0 [facility] GrapevineAlkaline Niiqtubamwf0427-55-61 09:55:00* Test Item Value Reference Range Interpretation Comments Alkaline Phosphatase (test code = 6768-6) 87 40-150 [facility] GrapevineB-Type Natriuretic Wudrtfq0932-84-17 09:55:00* Test Item Value Reference Range Interpretation Comments B-Type Natriuretic Peptide (test code = 71478-8) 136.8 0-100 H [facility]rapevineCreatine Utlost7765-20-17 09:55:00* Test Item Value Reference Range Interpretation Comments Creatine Kinase (test code = 2157-6) 76 29-168 [facility] GrapevineCreatine Kinase OS1744-72-96 09:55:00* Test Item Value Reference Range Interpretation Comments Creatine Kinase MB (test code = 09252-2) 3.60 0-5.0 [facility] GrapevineTroponin H2574-12-77 09:55:00* Test Item Value Reference Range Interpretation Comments Troponin I (test code = EKB3586) 0.036 0-0.300 [facility] GrapevineLipase2019-11-21 09:55:00* Test Item Value Reference Range Interpretation Comments Lipase (test code = 3040-3) 75 8-78 [facility]odium Rqvxl0984-53-76 09:55:00* Test Item Value Reference Range Interpretation Comments Sodium Level (test code = 2951-2) 142 136-145 [facility]vinePotassium Yaqlw3938-68-80 09:55:00* Test Item Value Reference Range Interpretation Comments Potassium Level (test code = 2823-3) 3.7 3.5-5.1 [facility]vineChloride Vvqgn9538-71-34 09:55:00* Test Item Value Reference Range Interpretation Comments Chloride Level (test code = 2075-0) 106 98-107 [facility] GrapevineCarbon Dioxide Tvkar2438-17-85 09:55:00* Test Item Value Reference Range Interpretation Comments Carbon Dioxide Level (test code = 2028-9) 25 22-29 [facility] GrapevineAnion Mcj3270-36-51 09:55:00* Test Item Value Reference Range Interpretation Comments Anion Gap (test code = 95918-5) 14.7 8-16 [facility] GrapevineBlood Urea Tdghfkni5075-12-84 09:55:00* Test Item Value Reference Range Interpretation Comments Blood Urea Nitrogen (test code = 3094-0) 20 7-26 [facility]rapevineCreatinine2019-11-21 09:55:00* Test Item Value Reference Range Interpretation Comments Creatinine (test code = 2160-0) 1.39 0.57-1.11 H [facility]vineBUN/Creatinine Pkjyq1645-61-92 09:55:00* Test Item Value Reference Range Interpretation Comments BUN/Creatinine Ratio (test code = 3097-3) 14 6-25 [facility] GrapevineEstimat Glomerular Filtration Rate 2019-04-15 09:55:00* Test Item Value Reference Range Interpretation Comments Estimat Glomerular Filtration Rate (test code = 020338719) 36 >60 L Ranges were taken from the National Kidney Disease Education Program and the [facility]al Kidney Foundation literature.Reference ranges:60 or greater: Eygquh19-92 ( for 3 consecutive months): Chronic kidney disease 15 or less: Kidney failureBaylor Scott & [facility] Medical Center – GrapevineGlucose Tqubq5029-99-26 09:55:00* Test Item Value Reference Range Interpretation Comments Glucose Level (test code = YIN3613) 106 74-118 [facility] GrapevineCalcium Tjauv5825-92-67 09:55:00* Test Item Value Reference Range Interpretation Comments Calcium Level (test code = 76244-4) 10.0 8.4-10.2 [facility] GrapevineMagnesium Leonq0618-61-54 09:55:00* Test Item Value Reference Range Interpretation Comments Magnesium Level (test code = 48617-5) 2.1 1.3-2.1 [facility] GrapevineTotal Vhypumukq0418-49-78 09:55:00* Test Item Value Reference Range Interpretation Comments Total Bilirubin (test code = 1975-2) 0.6 0.2-1.2 [facility] GrapevineAspartate Amino Transf (AST/SGOT) 2019-04-15 09:55:00* Test Item Value Reference Range Interpretation Comments Aspartate Amino Transf (AST/SGOT) (test code = Aspartate Amino Transf (AST/SGOT)) 33 5-34 [facility] GrapevineAlanine Aminotransferase (ALT/SGPT) 2019-04-15 09:55:00* Test Item Value Reference Range Interpretation Comments Alanine Aminotransferase (ALT/SGPT) (test code = 1742-6) 27 0-55 [facility] GrapevineTotal Rbhfedn3578-55-24 09:55:00* Test Item Value Reference Range Interpretation Comments Total Protein (test code = 2885-2) 7.2 6.5-8.1 [facility] GrapevineAlbumin2019-11-21 09:55:00* Test Item Value Reference Range Interpretation Comments Albumin (test code = 1751-7) 3.7 3.5-5.0 [facility] GrapevineGlobulin2019-11-21 09:55:00* Test Item Value Reference Range Interpretation Comments Globulin (test code = 78274-3) 3.5 2.3-3.5 [facility] GrapevineAlbumin/Globulin Sgadm4748-91-72 09:55:00 * Test Item Value Reference Range Interpretation Comments Albumin/Globulin Ratio (test code = 1759-0) 1.1 0.8-2.0 [facility] GrapevineAlkaline Gicvuwmqswf5533-84-10 09:55:00* Test Item Value Reference Range Interpretation Comments Alkaline Phosphatase (test code = 6768-6) 87 40-150 [facility] GrapevineB-Type Natriuretic Srnwfrj7107-44-38 09:55:00* Test Item Value Reference Range Interpretation Comments B-Type Natriuretic Peptide (test code = 01659-6) 136.8 0-100 H [facility]vineCreatine Rbrvip2098-98-27 09:55:00* Test Item Value Reference Range Interpretation Comments Creatine Kinase (test code = 2157-6) 76 29-168 [facility] GrapevineCreatine Kinase KJ4241-10-97 09:55:00* Test Item Value Reference Range Interpretation Comments Creatine Kinase MB (test code = 18523-8) 3.60 0-5.0 [facility] GrapevineTroponin E3102-96-40 09:55:00* Test Item Value Reference Range Interpretation Comments Troponin I (test code = VXD4945) 0.036 0-0.300 [facility] GrapevineLipase2019-11-21 09:55:00* Test Item Value Reference Range Interpretation Comments Lipase (test code = 3040-3) 75 8-78 [facility] GrapevineMagnesium Dkbqy0300-60-61 09:55:00* Test Item Value Reference Range Interpretation Comments Magnesium Level (test code = 30321-5) 2.1 1.3-2.1 [facility] GrapevineLipase2019-11-21 09:55:00* Test Item Value Reference Range Interpretation Comments Lipase (test code = 3040-3) 75 8-78 [facility] GrapevineMagnesium Rfsyb1982-18-52 09:55:00* Test Item Value Reference Range Interpretation Comments Magnesium Level (test code = 55533-4) 2.1 1.3-2.1 [facility] GrapevineLipase2019-11-21 09:55:00* Test Item Value Reference Range Interpretation Comments Lipase (test code = 3040-3) 75 8-78 [facility] GrapevineMagnesium Ijbrb4952-93-62 09:55:00* Test Item Value Reference Range Interpretation Comments Magnesium Level (test code = 47436-3) 2.1 1.3-2.1 [facility]2019-11-21 09:55:00* Test Item Value Reference Range Interpretation Comments Lipase (test code = 3040-3) 75 8-78 [facility]15 09:32:00 [facility] [address] [address] Patient Name: YUE RAMSEY MR #: [id number] : 1935 Age/Sex: 83/F Req #: [id number] Adm Physician: Ordered by: GIRISH BROWN MD Report #: [id number] Location: ER Room/Bed: Procedure: [id number] D X/CHEST SINGLE (PORTABLE) Exam Date: 04/15/19 [...] 04/15 COPY TO: GIRISH BROWN MD Urine IJG0361-61-04 09:29:00 * Test Item Value Reference Range Interpretation Comments Urine WBC (test code = 5821-4) 6-10 0-5 [facility] GrapevineUrine YKA9881-89-46 09:29:00* Test Item Value Reference Range Interpretation Comments Urine RBC (test code = 76430-1) 0-5 0-5 [facility] GrapevineUrine Ntuykwid2075-08-73 09:29:00* Test Item Value Reference Range Interpretation Comments Urine Bacteria (test code = 39818-5) MANY NONE [facility] GrapevineUrine Epithelial Qakup8382-95-91 09:29:00 * Test Item Value Reference Range Interpretation Comments Urine Epithelial Cells (test code = 46470-6) MODERATE NONE [facility] GrapevineUrine Amorphous Ntrpmskq3979-72-28 09:29:00* Test Item Value Reference Range Interpretation Comments Urine Amorphous Sediment (test code = 8246-1) FEW FEW [facility] Hyaline Vqodn8702-65-05 09:29:00* Test Item Value Reference Range Interpretation Comments Urine Hyaline Casts (test code = 61597-4) 0-1 0-1 [facility] GrapevineUrine Coarse Granular Bxetm9712-34-88 09:29:00* Test Item Value Reference Range Interpretation Comments Urine Coarse Granular Casts (test code = 54670-8) 1-5 >0 [facility]vineUrine Gkeyi7422-65-90 09:29:00* Test Item Value Reference Range Interpretation Comments Urine Mucus (test code = 8247-9) MODERATE RARE H [facility]vineUrine Amorphous Wuvxmjkg2617-45-59 09:29:00* Test Item Value Reference Range Interpretation Comments Urine Amorphous Sediment (test code = 8246-1) FEW FEW [facility] GrapevineUrine Hyaline Eqsql5889-01-28 09:29:00* Test Item Value Reference Range Interpretation Comments Urine Hyaline Casts (test code = 09352-8) 0-1 0-1 [facility] Coarse Granular Ofeec8325-96-53 09:29:00* Test Item Value Reference Range Interpretation Comments Urine Coarse Granular Casts (test code = 49770-4) 1-5 >0 H [facility] Wexly3203-97-58 09:29:00* Test Item Value Reference Range Interpretation Comments Urine Mucus (test code = 8247-9) MODERATE RARE H [facility] Amorphous Egednlna9827-64-91 09:29:00* Test Item Value Reference Range Interpretation Comments Urine Amorphous Sediment (test code = 8246-1) FEW FEW [facility] Hyaline Uuesn1348-53-39 09:29:00* Test Item Value Reference Range Interpretation Comments Urine Hyaline Casts (test code = 08805-2) 0-1 0-1 [facility] Coarse Granular Ajxye7341-13-38 09:29:00* Test Item Value Reference Range Interpretation Comments Urine Coarse Granular Casts (test code = 39189-6) 1-5 >0 H [facility] Klrum5379-16-00 09:29:00* Test Item Value Reference Range Interpretation Comments Urine Mucus (test code = 8247-9) MODERATE RARE H [facility] Amorphous Pmpecklm2936-63-34 09:29:00* Test Item Value Reference Range Interpretation Comments Urine Amorphous Sediment (test code = 8246-1) FEW FEW [facility] Hyaline Hdgfr1943-68-74 09:29:00* Test Item Value Reference Range Interpretation Comments Urine Hyaline Casts (test code = 31859-7) 0-1 0-1 [facility] Coarse Granular Fxldx1519-54-21 09:29:00* Test Item Value Reference Range Interpretation Comments Urine Coarse Granular Casts (test code = 66486-8) 1-5 >0 H [facility] Vyaid7576-10-70 09:29:00* Test Item Value Reference Range Interpretation Comments Urine Mucus (test code = 8247-9) MODERATE RARE H [facility] Amorphous Hqqffjke6563-77-36 09:29:00* Test Item Value Reference Range Interpretation Comments Urine Amorphous Sediment (test code = 8246-1) FEW FEW [facility] Hyaline Ufiwe9114-46-44 09:29:00* Test Item Value Reference Range Interpretation Comments Urine Hyaline Casts (test code = 64382-3) 0-1 0-1 [facility]vineUrine Coarse Granular Ghpgi3288-74-57 09:29:00* Test Item Value Reference Range Interpretation Comments Urine Coarse Granular Casts (test code = 58568-2) 1-5 >0 [facility]vineUrine Bjvec6381-45-27 09:29:00* Test Item Value Reference Range Interpretation Comments Urine Mucus (test code = 8247-9) MODERATE RARE H [facility] Amorphous Gkoutcxn7119-16-50 09:29:00* Test Item Value Reference Range Interpretation Comments Urine Amorphous Sediment (test code = 8246-1) FEW FEW [facility] Hyaline Hizpv9876-38-55 09:29:00* Test Item Value Reference Range Interpretation Comments Urine Hyaline Casts (test code = 65520-5) 0-1 0-1 [facility] Coarse Granular Lwakj9311-29-63 09:29:00* Test Item Value Reference Range Interpretation Comments Urine Coarse Granular Casts (test code = 82746-5) 1-5 >0 H [facility] Jvphs4632-93-86 09:29:00* Test Item Value Reference Range Interpretation Comments Urine Mucus (test code = 8247-9) MODERATE RARE H [facility] Amorphous Yoyhbfrc7876-44-42 09:29:00* Test Item Value Reference Range Interpretation Comments Urine Amorphous Sediment (test code = 8246-1) FEW FEW [facility]vineUrine Hyaline Wizjt6766-63-88 09:29:00* Test Item Value Reference Range Interpretation Comments Urine Hyaline Casts (test code = 54394-6) 0-1 0-1 [facility] Coarse Granular Eaqor0166-70-64 09:29:00* Test Item Value Reference Range Interpretation Comments Urine Coarse Granular Casts (test code = 58966-8) 1-5 >0 [facility]vineUrine Lyyfq3106-07-08 09:29:00* Test Item Value Reference Range Interpretation Comments Urine Mucus (test code = 8247-9) MODERATE RARE [facility]vineUrine Amorphous Qpqguoxd5987-53-08 09:29:00* Test Item Value Reference Range Interpretation Comments Urine Amorphous Sediment (test code = 8246-1) FEW FEW [facility]vineUrine Hyaline Sutdc9322-54-41 09:29:00* Test Item Value Reference Range Interpretation Comments Urine Hyaline Casts (test code = 47412-7) 0-1 0-1 [facility]vineUrine Coarse Granular Llaah0585-71-27 09:29:00* Test Item Value Reference Range Interpretation Comments Urine Coarse Granular Casts (test code = 12698-4) 1-5 >0 [facility]vineUrine Agqlo5376-02-76 09:29:00* Test Item Value Reference Range Interpretation Comments Urine Mucus (test code = 8247-9) MODERATE RARE H [facility] GrapevineProthrombin Eepy9192-05-05 09:25:00* Test Item Value Reference Range Interpretation Comments Prothrombin Time (test code = 5902-2) 12.7 11.9-14.5 [facility] GrapevineProthromb Time International Ratio 2019-04-15 09:25:00* Test Item Value Reference Range Interpretation Comments Prothromb Time International Ratio (test code = 6301-6) 0.91 Oral Anticoagulant Therapy INR Values:1. Low Intensity Therapy 1.5 - 2.02 . Moderate Intensity Therapy 2.0 - 3.03. High Intensity Therapy(1) 2.5 - 3. 54. High Intensity Therapy(2) 3.0 - 4.05. Panic Value INR > 5.0 [facility] GrapevineActivated Partial Thromboplast Time 2019-04-15 09:25:00* Test Item Value Reference Range Interpretation Comments Activated Partial Thromboplast Time (test code = 42335-5) 31.4 23.8-35.5 [facility] GrapevineProthrombin Eefu4361-39-42 09:25:00* Test Item Value Reference Range Interpretation Comments Prothrombin Time (test code = 5902-2) 12.7 11.9-14.5 [facility] GrapevineProthromb Time International Ratio 2019-04-15 09:25:00* Test Item Value Reference Range Interpretation Comments Prothromb Time International Ratio (test code = 6301-6) 0.91 Oral Anticoagulant Therapy INR Values:1. Low Intensity Therapy 1.5 - 2.02 . Moderate Intensity Therapy 2.0 - 3.03. High Intensity Therapy(1) 2.5 - 3. 54. High Intensity Therapy(2) 3.0 - 4.05. Panic Value INR > 5.0 [facility] GrapevineActivated Partial Thromboplast Time 2019-04-15 09:25:00* Test Item Value Reference Range Interpretation Comments Activated Partial Thromboplast Time (test code = 59464-1) 31.4 23.8-35.5 [facility] GrapevineProthrombin Igog6919-19-97 09:25:00* Test Item Value Reference Range Interpretation Comments Prothrombin Time (test code = 5902-2) 12.7 11.9-14.5 [facility] GrapevineProthromb Time International Ratio 2019-04-15 09:25:00* Test Item Value Reference Range Interpretation Comments Prothromb Time International Ratio (test code = 6301-6) 0.91 Oral Anticoagulant Therapy INR Values:1. Low Intensity Therapy 1.5 - 2.02 . Moderate Intensity Therapy 2.0 - 3.03. High Intensity Therapy(1) 2.5 - 3. 54. High Intensity Therapy(2) 3.0 - 4.05. Panic Value INR > 5.0 [facility] GrapevineActivated Partial Thromboplast Time 2019-04-15 09:25:00* Test Item Value Reference Range Interpretation Comments Activated Partial Thromboplast Time (test code = 00754-1) 31.4 23.8-35.5 [facility] GrapevineProthrombin Gtai9091-23-23 09:25:00* Test Item Value Reference Range Interpretation Comments Prothrombin Time (test code = 5902-2) 12.7 11.9-14.5 [facility] GrapevineProthromb Time International Ratio 2019-04-15 09:25:00* Test Item Value Reference Range Interpretation Comments Prothromb Time International Ratio (test code = 6301-6) 0.91 Oral Anticoagulant Therapy INR Values:1. Low Intensity Therapy 1.5 - 2.02 . Moderate Intensity Therapy 2.0 - 3.03. High Intensity Therapy(1) 2.5 - 3. 54. High Intensity Therapy(2) 3.0 - 4.05. Panic Value INR > 5.0 [facility]rapevineActivated Partial Thromboplast Time 2019-04-15 09:25:00* Test Item Value Reference Range Interpretation Comments Activated Partial Thromboplast Time (test code = 19979-5) 31.4 23.8-35.5 [facility] GrapevineProthrombin Bllu9954-27-02 09:25:00* Test Item Value Reference Range Interpretation Comments Prothrombin Time (test code = 5902-2) 12.7 11.9-14.5 [facility] GrapevineProthromb Time International Ratio 2019-04-15 09:25:00* Test Item Value Reference Range Interpretation Comments Prothromb Time International Ratio (test code = 6301-6) 0.91 Oral Anticoagulant Therapy INR Values:1. Low Intensity Therapy 1.5 - 2.02 . Moderate Intensity Therapy 2.0 - 3.03. High Intensity Therapy(1) 2.5 - 3. 54. High Intensity Therapy(2) 3.0 - 4.05. Panic Value INR > 5.0 [facility]rapevineActivated Partial Thromboplast Time 2019-04-15 09:25:00* Test Item Value Reference Range Interpretation Comments Activated Partial Thromboplast Time (test code = 57533-7) 31.4 23.8-35.5 [facility] GrapevineProthrombin Wzfy5209-26-14 09:25:00* Test Item Value Reference Range Interpretation Comments Prothrombin Time (test code = 5902-2) 12.7 11.9-14.5 [facility] GrapevineProthromb Time International Ratio 2019-04-15 09:25:00* Test Item Value Reference Range Interpretation Comments Prothromb Time International Ratio (test code = 6301-6) 0.91 Oral Anticoagulant Therapy INR Values:1. Low Intensity Therapy 1.5 - 2.02 . Moderate Intensity Therapy 2.0 - 3.03. High Intensity Therapy(1) 2.5 - 3. 54. High Intensity Therapy(2) 3.0 - 4.05. Panic Value INR > 5.0 [facility] [facility]Act[facility] Partial Thromboplast Time 2019-04-15 09:25:00* Test Item Value Reference Range Interpretation Comments Activated Partial Thromboplast Time (test code = 74857-6) 31.4 23.8-35.5 [facility]vine[facility] Stogy4655-52-35 09:19:00* Test Item Value Reference Range Interpretation Comments Urine Color (test code = 5778-6) YELLOW YELLOW [facility]vine[facility] Cnubbgh7644-22-26 09:19:00* Test Item Value Reference Range Interpretation Comments Urine Clarity (test code = 00625-5) SL CLOUDY CLEAR [facility]vineU[facility] Specific Arlxzcd1828-02-27 09:19:00 * Test Item Value Reference Range Interpretation Comments Urine Specific [place] (test code = 5811-5) 1.010 1.010-1.02 5 [facility]vineU[facility] [id number] 09:19:00* Test Item Value Reference Range Interpretation Comments Urine pH (test code = 64543-2) 8.5 5-7 [facility] Leukocyte Mzkcvfoo2997-73-80 09:19:00* Test Item Value Reference Range Interpretation Comments Urine Leukocyte Esterase (test code = 47750-4) NEGATIVE NEGATIV E [facility]vine[facility] Ykspwka2604-28-70 09:19:00* Test Item Value Reference Range Interpretation Comments Urine Nitrite (test code = 43775-0) NEGATIVE NEGATIVE [facility] Oqisrwl9984-45-84 09:19:00* Test Item Value Reference Range Interpretation Comments Urine Protein (test code = 10216-1) NEGATIVE NEGATIVE [facility]vine[facility] Glucose (UA)2019-04-15 09:19:00* Test Item Value Reference Range Interpretation Comments Urine Glucose (UA) (test code = 96017-0) NEGATIVE NEGATIVE [facility]vine[facility] Zvwdjos3862-57-59 09:19:00* Test Item Value Reference Range Interpretation Comments Urine Ketones (test code = 70346-6) NEGATIVE NEGATIVE [facility]vine[facility] Vpuairkvnehh9803-78-35 09:19:00* Test Item Value Reference Range Interpretation Comments Urine Urobilinogen (test code = 68803-8) 0.2 0.2-1 [facility] Ssotruplh1815-95-96 09:19:00* Test Item Value Reference Range Interpretation Comments Urine Bilirubin (test code = 1977-8) NEGATIVE NEGATIVE [facility]vine[facility] Rrany1282-84-52 09:19:00* Test Item Value Reference Range Interpretation Comments Urine Blood (test code = 61236-6) NEGATIVE NEGATIVE [facility] [place]vineWhite Blood Wakzc0119-57-11 09:18:00* Test Item Value Reference Range Interpretation Comments White Blood Count (test code = 6690-2) 8.56 4.8-10.8 [facility] [place]vineRed Blood Eynwq5275-87-82 09:18:00* Test Item Value Reference Range Interpretation Comments Red Blood Count (test code = 789-8) 4.49 3.6-5.1 [facility]vineHemoglobin2019-11-21 09:18:00* Test Item Value Reference Range Interpretation Comments Hemoglobin (test code = 76296-4) 13.8 12.0-16.0 [facility]vineHematocrit2019-11-21 09:18:00* Test Item Value Reference Range Interpretation Comments Hematocrit (test code = 4544-3) 41.1 34.2-44.1 [facility] [place]vineMean Corpuscular Svyrdn1659-82-62 09:18:00* Test Item Value Reference Range Interpretation Comments Mean Corpuscular Volume (test code = 787-2) 91.5 81-99 [facility]vineMean Corpuscular Uyssrcznva7876-84-72 09:18:00* Test Item Value Reference Range Interpretation Comments Mean Corpuscular Hemoglobin (test code = 785-6) 30.7 28-32 [facility]vineMean Corpuscular Hemoglobin Concent 2019-04-15 09:18:00* Test Item Value Reference Range Interpretation Comments Mean Corpuscular Hemoglobin Concent (test code = 786-4) 33.6 31-35 [facility] [place]vineRed Cell Distribution Ktzrc2211-51-56 09:18:00* Test Item Value Reference Range Interpretation Comments Red Cell Distribution Width (test code = 94463-2) 13.1 11.7 -14.4 [facility]vinePlatelet Ofsup1282-77-45 09:18:00* Test Item Value Reference Range Interpretation Comments Platelet Count (test code = 777-3) 248 140-360 [facility]rapevineNeutrophils (%) (Auto)2019-04-15 09:18:00 * Test Item Value Reference Range Interpretation Comments Neutrophils (%) (Auto) (test code = 79829-2) 65.8 38.7-80.0 [facility]vineLymphocytes (%) (Auto)2019-04-15 09:18:00 * Test Item Value Reference Range Interpretation Comments Lymphocytes (%) (Auto) (test code = 736-9) 22.1 18.0-39.1 [facility]vineMonocytes (%) (Auto)2019-04-15 09:18:00* Test Item Value Reference Range Interpretation Comments Monocytes (%) (Auto) (test code = 5905-5) 8.9 4.4-11.3 [facility]vineEosinophils (%) (Auto)2019-04-15 09:18:00 * Test Item Value Reference Range Interpretation Comments Eosinophils (%) (Auto) (test code = 713-8) 2.0 0.0-6.0 [facility]vineBasophils (%) (Auto)2019-04-15 09:18:00* Test Item Value Reference Range Interpretation Comments Basophils (%) (Auto) (test code = 706-2) 0.8 0.0-1.0 [facility]vineIM GRANULOCYTES %2019-04-15 09:18:00* Test Item Value Reference Range Interpretation Comments IM GRANULOCYTES % (test code = IM GRANULOCYTES %) 0.4 0.0- 1.0 [facility]vineNeutrophils # (Auto)2019-04-15 09:18:00* Test Item Value Reference Range Interpretation Comments Neutrophils # (Auto) (test code = 751-8) 5.6 2.1-6.9 [facility]vineLymphocytes # (Auto)2019-04-15 09:18:00* Test Item Value Reference Range Interpretation Comments Lymphocytes # (Auto) (test code = 37354-5) 1.9 1.0-3.2 [facility]vineMonocytes # (Auto)2019-04-15 09:18:00* Test Item Value Reference Range Interpretation Comments Monocytes # (Auto) (test code = 742-7) 0.8 0.2-0.8 [facility]vineEosinophils # (Auto)2019-04-15 09:18:00* Test Item Value Reference Range Interpretation Comments Eosinophils # (Auto) (test code = 711-2) 0.2 0.0-0.4 [facility]vineBasophils # (Auto)2019-04-15 09:18:00* Test Item Value Reference Range Interpretation Comments Basophils # (Auto) (test code = 704-7) 0.1 0.0-0.1 [facility]rapevineAbsolute Immature Granulocyte (auto 2019-04-15 09:18:00* Test Item Value Reference Range Interpretation Comments Absolute Immature Granulocyte (auto (anjali t code = Absolute Immature Granulocyte (auto) 0.03 0-0.1 [facility] [place]vineWhite Blood Xlruo8380-82-09 09:18:00* Test Item Value Reference Range Interpretation Comments White Blood Count (test code = 6690-2) 8.56 4.8-10.8 [facility] [place]vineRed Blood Lyepp9682-51-89 09:18:00* Test Item Value Reference Range Interpretation Comments Red Blood Count (test code = 789-8) 4.49 3.6-5.1 [facility]vineHemoglobin2019-11-21 09:18:00* Test Item Value Reference Range Interpretation Comments Hemoglobin (test code = 43312-6) 13.8 12.0-16.0 [facility]vineHematocrit2019-11-21 09:18:00* Test Item Value Reference Range Interpretation Comments Hematocrit (test code = 4544-3) 41.1 34.2-44.1 [facility]vineMean Corpuscular Qeqfwv1474-42-42 09:18:00* Test Item Value Reference Range Interpretation Comments Mean Corpuscular Volume (test code = 787-2) 91.5 81-99 [facility]vineMean Corpuscular Unifrigast7037-26-44 09:18:00* Test Item Value Reference Range Interpretation Comments Mean Corpuscular Hemoglobin (test code = 785-6) 30.7 28-32 [facility]vineMean Corpuscular Hemoglobin Concent 2019-04-15 09:18:00* Test Item Value Reference Range Interpretation Comments Mean Corpuscular Hemoglobin Concent (test code = 786-4) 33.6 31-35 [facility] [place]vineRed Cell Distribution Zwxkp0014-78-29 09:18:00* Test Item Value Reference Range Interpretation Comments Red Cell Distribution Width (test code = 82200-1) 13.1 11.7 -14.4 [facility]vinePlatelet Pvtwo2318-62-56 09:18:00* Test Item Value Reference Range Interpretation Comments Platelet Count (test code = 777-3) 248 140-360 [facility]vineNeutrophils (%) (Auto)2019-04-15 09:18:00 * Test Item Value Reference Range Interpretation Comments Neutrophils (%) (Auto) (test code = 06943-6) 65.8 38.7-80.0 [facility]vineLymphocytes (%) (Auto)2019-04-15 09:18:00 * Test Item Value Reference Range Interpretation Comments Lymphocytes (%) (Auto) (test code = 736-9) 22.1 18.0-39.1 [facility]vineMonocytes (%) (Auto)2019-04-15 09:18:00* Test Item Value Reference Range Interpretation Comments Monocytes (%) (Auto) (test code = 5905-5) 8.9 4.4-11.3 [facility]vineEosinophils (%) (Auto)2019-04-15 09:18:00 * Test Item Value Reference Range Interpretation Comments Eosinophils (%) (Auto) (test code = 713-8) 2.0 0.0-6.0 [facility]vineBasophils (%) (Auto)2019-04-15 09:18:00* Test Item Value Reference Range Interpretation Comments Basophils (%) (Auto) (test code = 706-2) 0.8 0.0-1.0 [facility]vineIM GRANULOCYTES %2019-04-15 09:18:00* Test Item Value Reference Range Interpretation Comments IM GRANULOCYTES % (test code = IM GRANULOCYTES %) 0.4 0.0- 1.0 [facility]vineNeutrophils # (Auto)2019-04-15 09:18:00* Test Item Value Reference Range Interpretation Comments Neutrophils # (Auto) (test code = 751-8) 5.6 2.1-6.9 [facility]rapevineLymphocytes # (Auto)2019-04-15 09:18:00* Test Item Value Reference Range Interpretation Comments Lymphocytes # (Auto) (test code = 50192-5) 1.9 1.0-3.2 [facility]vineMonocytes # (Auto)2019-04-15 09:18:00* Test Item Value Reference Range Interpretation Comments Monocytes # (Auto) (test code = 742-7) 0.8 0.2-0.8 [facility]vineEosinophils # (Auto)2019-04-15 09:18:00* Test Item Value Reference Range Interpretation Comments Eosinophils # (Auto) (test code = 711-2) 0.2 0.0-0.4 [facility]vineBasophils # (Auto)2019-04-15 09:18:00* Test Item Value Reference Range Interpretation Comments Basophils # (Auto) (test code = 704-7) 0.1 0.0-0.1 [facility]vineAbsolute Immature Granulocyte (auto 2019-04-15 09:18:00* Test Item Value Reference Range Interpretation Comments Absolute Immature Granulocyte (auto (anjali t code = Absolute Immature Granulocyte (auto) 0.03 0-0.1 [facility]vineWhite Blood Lpwyw8840-71-16 09:18:00* Test Item Value Reference Range Interpretation Comments White Blood Count (test code = 6690-2) 8.56 4.8-10.8 [facility]vineRed Blood Xxwpe1733-89-98 09:18:00* Test Item Value Reference Range Interpretation Comments Red Blood Count (test code = 789-8) 4.49 3.6-5.1 [facility]vineHemoglobin2019-11-21 09:18:00* Test Item Value Reference Range Interpretation Comments Hemoglobin (test code = 74892-4) 13.8 12.0-16.0 [facility]vineHematocrit2019-11-21 09:18:00* Test Item Value Reference Range Interpretation Comments Hematocrit (test code = 4544-3) 41.1 34.2-44.1 [facility]vineMean Corpuscular Wzuovh3663-67-83 09:18:00* Test Item Value Reference Range Interpretation Comments Mean Corpuscular Volume (test code = 787-2) 91.5 81-99 [facility]vineMean Corpuscular Vevbjqmyfo1721-33-32 09:18:00* Test Item Value Reference Range Interpretation Comments Mean Corpuscular Hemoglobin (test code = 785-6) 30.7 28-32 [facility]vineMean Corpuscular Hemoglobin Concent 2019-04-15 09:18:00* Test Item Value Reference Range Interpretation Comments Mean Corpuscular Hemoglobin Concent (test code = 786-4) 33.6 31-35 [facility] [place]vineRed Cell Distribution Ceegb8487-25-37 09:18:00* Test Item Value Reference Range Interpretation Comments Red Cell Distribution Width (test code = 96217-5) 13.1 11.7 -14.4 [facility]rapevinePlatelet Jeiwc5993-09-20 09:18:00* Test Item Value Reference Range Interpretation Comments Platelet Count (test code = 777-3) 248 140-360 [facility]rapevineNeutrophils (%) (Auto)2019-04-15 09:18:00 * Test Item Value Reference Range Interpretation Comments Neutrophils (%) (Auto) (test code = 18479-6) 65.8 38.7-80.0 [facility]rapevineLymphocytes (%) (Auto)2019-04-15 09:18:00 * Test Item Value Reference Range Interpretation Comments Lymphocytes (%) (Auto) (test code = 736-9) 22.1 18.0-39.1 [facility]vineMonocytes (%) (Auto)2019-04-15 09:18:00* Test Item Value Reference Range Interpretation Comments Monocytes (%) (Auto) (test code = 5905-5) 8.9 4.4-11.3 [facility]vineEosinophils (%) (Auto)2019-04-15 09:18:00 * Test Item Value Reference Range Interpretation Comments Eosinophils (%) (Auto) (test code = 713-8) 2.0 0.0-6.0 [facility]vineBasophils (%) (Auto)2019-04-15 09:18:00* Test Item Value Reference Range Interpretation Comments Basophils (%) (Auto) (test code = 706-2) 0.8 0.0-1.0 [facility]vineIM GRANULOCYTES %2019-04-15 09:18:00* Test Item Value Reference Range Interpretation Comments IM GRANULOCYTES % (test code = IM GRANULOCYTES %) 0.4 0.0- 1.0 [facility]vineNeutrophils # (Auto)2019-04-15 09:18:00* Test Item Value Reference Range Interpretation Comments Neutrophils # (Auto) (test code = 751-8) 5.6 2.1-6.9 [facility]vineLymphocytes # (Auto)2019-04-15 09:18:00* Test Item Value Reference Range Interpretation Comments Lymphocytes # (Auto) (test code = 41104-3) 1.9 1.0-3.2 [facility]vineMonocytes # (Auto)2019-04-15 09:18:00* Test Item Value Reference Range Interpretation Comments Monocytes # (Auto) (test code = 742-7) 0.8 0.2-0.8 [facility]vineEosinophils # (Auto)2019-04-15 09:18:00* Test Item Value Reference Range Interpretation Comments Eosinophils # (Auto) (test code = 711-2) 0.2 0.0-0.4 [facility]vineBasophils # (Auto)2019-04-15 09:18:00* Test Item Value Reference Range Interpretation Comments Basophils # (Auto) (test code = 704-7) 0.1 0.0-0.1 [facility]vineAbsolute Immature Granulocyte (auto 2019-04-15 09:18:00* Test Item Value Reference Range Interpretation Comments Absolute Immature Granulocyte (auto (anjali t code = Absolute Immature Granulocyte (auto) 0.03 0-0.1 [facility]vineWhite Blood Fjprn2443-92-25 09:18:00* Test Item Value Reference Range Interpretation Comments White Blood Count (test code = 6690-2) 8.56 4.8-10.8 [facility]vineRed Blood Pkjyq3885-64-56 09:18:00* Test Item Value Reference Range Interpretation Comments Red Blood Count (test code = 789-8) 4.49 3.6-5.1 [facility]vineHemoglobin2019-11-21 09:18:00* Test Item Value Reference Range Interpretation Comments Hemoglobin (test code = 85501-3) 13.8 12.0-16.0 [facility]rapevineHematocrit2019-11-21 09:18:00* Test Item Value Reference Range Interpretation Comments Hematocrit (test code = 4544-3) 41.1 34.2-44.1 [facility]vineMean Corpuscular Kcrfkl0441-08-74 09:18:00* Test Item Value Reference Range Interpretation Comments Mean Corpuscular Volume (test code = 787-2) 91.5 81-99 [facility]vineMean Corpuscular Ranbydeidv3952-39-35 09:18:00* Test Item Value Reference Range Interpretation Comments Mean Corpuscular Hemoglobin (test code = 785-6) 30.7 28-32 [facility]vineMean Corpuscular Hemoglobin Concent 2019-04-15 09:18:00* Test Item Value Reference Range Interpretation Comments Mean Corpuscular Hemoglobin Concent (test code = 786-4) 33.6 31-35 [facility]vineRed Cell Distribution Iuxtj8009-07-96 09:18:00* Test Item Value Reference Range Interpretation Comments Red Cell Distribution Width (test code = 55180-1) 13.1 11.7 -14.4 [facility]vinePlatelet Qydjp2044-14-30 09:18:00* Test Item Value Reference Range Interpretation Comments Platelet Count (test code = 777-3) 248 140-360 [facility]vineNeutrophils (%) (Auto)2019-04-15 09:18:00 * Test Item Value Reference Range Interpretation Comments Neutrophils (%) (Auto) (test code = 15739-0) 65.8 38.7-80.0 [facility]vineLymphocytes (%) (Auto)2019-04-15 09:18:00 * Test Item Value Reference Range Interpretation Comments Lymphocytes (%) (Auto) (test code = 736-9) 22.1 18.0-39.1 [facility]vineMonocytes (%) (Auto)2019-04-15 09:18:00* Test Item Value Reference Range Interpretation Comments Monocytes (%) (Auto) (test code = 5905-5) 8.9 4.4-11.3 [facility]vineEosinophils (%) (Auto)2019-04-15 09:18:00 * Test Item Value Reference Range Interpretation Comments Eosinophils (%) (Auto) (test code = 713-8) 2.0 0.0-6.0 [facility]vineBasophils (%) (Auto)2019-04-15 09:18:00* Test Item Value Reference Range Interpretation Comments Basophils (%) (Auto) (test code = 706-2) 0.8 0.0-1.0 [facility]vineIM GRANULOCYTES %2019-04-15 09:18:00* Test Item Value Reference Range Interpretation Comments IM GRANULOCYTES % (test code = IM GRANULOCYTES %) 0.4 0.0- 1.0 [facility]vineNeutrophils # (Auto)2019-04-15 09:18:00* Test Item Value Reference Range Interpretation Comments Neutrophils # (Auto) (test code = 751-8) 5.6 2.1-6.9 [facility]rapevineLymphocytes # (Auto)2019-04-15 09:18:00* Test Item Value Reference Range Interpretation Comments Lymphocytes # (Auto) (test code = 21076-0) 1.9 1.0-3.2 [facility]vineMonocytes # (Auto)2019-04-15 09:18:00* Test Item Value Reference Range Interpretation Comments Monocytes # (Auto) (test code = 742-7) 0.8 0.2-0.8 [facility]vineEosinophils # (Auto)2019-04-15 09:18:00* Test Item Value Reference Range Interpretation Comments Eosinophils # (Auto) (test code = 711-2) 0.2 0.0-0.4 [facility]vineBasophils # (Auto)2019-04-15 09:18:00* Test Item Value Reference Range Interpretation Comments Basophils # (Auto) (test code = 704-7) 0.1 0.0-0.1 [facility]rapevineAbsolute Immature Granulocyte (auto 2019-04-15 09:18:00* Test Item Value Reference Range Interpretation Comments Absolute Immature Granulocyte (auto (anjali t code = Absolute Immature Granulocyte (auto) 0.03 0-0.1 [facility]vineWhite Blood Kiicb0615-29-69 09:18:00* Test Item Value Reference Range Interpretation Comments White Blood Count (test code = 6690-2) 8.56 4.8-10.8 [facility]vineRed Blood Wpayi7684-70-51 09:18:00* Test Item Value Reference Range Interpretation Comments Red Blood Count (test code = 789-8) 4.49 3.6-5.1 [facility]rapevineHemoglobin2019-11-21 09:18:00* Test Item Value Reference Range Interpretation Comments Hemoglobin (test code = 11219-8) 13.8 12.0-16.0 [facility]rapevineHematocrit2019-11-21 09:18:00* Test Item Value Reference Range Interpretation Comments Hematocrit (test code = 4544-3) 41.1 34.2-44.1 [facility]vineMean Corpuscular Lyyibg0880-26-37 09:18:00* Test Item Value Reference Range Interpretation Comments Mean Corpuscular Volume (test code = 787-2) 91.5 81-99 [facility]vineMean Corpuscular Vmcaoshmwk6542-69-46 09:18:00* Test Item Value Reference Range Interpretation Comments Mean Corpuscular Hemoglobin (test code = 785-6) 30.7 28-32 [facility]vineMean Corpuscular Hemoglobin Concent 2019-04-15 09:18:00* Test Item Value Reference Range Interpretation Comments Mean Corpuscular Hemoglobin Concent (test code = 786-4) 33.6 31-35 [facility]vineRed Cell Distribution Tsgmj0241-01-38 09:18:00* Test Item Value Reference Range Interpretation Comments Red Cell Distribution Width (test code = 31837-8) 13.1 11.7 -14.4 [facility] GrapevinePlatelet Vlecf6358-90-11 09:18:00* Test Item Value Reference Range Interpretation Comments Platelet Count (test code = 777-3) 248 140-360 [facility]rapevineNeutrophils (%) (Auto)2019-04-15 09:18:00 * Test Item Value Reference Range Interpretation Comments Neutrophils (%) (Auto) (test code = 03180-1) 65.8 38.7-80.0 [facility]vineLymphocytes (%) (Auto)2019-04-15 09:18:00 * Test Item Value Reference Range Interpretation Comments Lymphocytes (%) (Auto) (test code = 736-9) 22.1 18.0-39.1 [facility]vineMonocytes (%) (Auto)2019-04-15 09:18:00* Test Item Value Reference Range Interpretation Comments Monocytes (%) (Auto) (test code = 5905-5) 8.9 4.4-11.3 [facility]vineEosinophils (%) (Auto)2019-04-15 09:18:00 * Test Item Value Reference Range Interpretation Comments Eosinophils (%) (Auto) (test code = 713-8) 2.0 0.0-6.0 [facility]vineBasophils (%) (Auto)2019-04-15 09:18:00* Test Item Value Reference Range Interpretation Comments Basophils (%) (Auto) (test code = 706-2) 0.8 0.0-1.0 [facility]vineIM GRANULOCYTES %2019-04-15 09:18:00* Test Item Value Reference Range Interpretation Comments IM GRANULOCYTES % (test code = IM GRANULOCYTES %) 0.4 0.0- 1.0 [facility]vineNeutrophils # (Auto)2019-04-15 09:18:00* Test Item Value Reference Range Interpretation Comments Neutrophils # (Auto) (test code = 751-8) 5.6 2.1-6.9 [facility]vineLymphocytes # (Auto)2019-04-15 09:18:00* Test Item Value Reference Range Interpretation Comments Lymphocytes # (Auto) (test code = 67073-6) 1.9 1.0-3.2 [facility]vineMonocytes # (Auto)2019-04-15 09:18:00* Test Item Value Reference Range Interpretation Comments Monocytes # (Auto) (test code = 742-7) 0.8 0.2-0.8 [facility]vineEosinophils # (Auto)2019-04-15 09:18:00* Test Item Value Reference Range Interpretation Comments Eosinophils # (Auto) (test code = 711-2) 0.2 0.0-0.4 [facility]vineBasophils # (Auto)2019-04-15 09:18:00* Test Item Value Reference Range Interpretation Comments Basophils # (Auto) (test code = 704-7) 0.1 0.0-0.1 [facility]rapevineAbsolute Immature Granulocyte (auto 2019-04-15 09:18:00* Test Item Value Reference Range Interpretation Comments Absolute Immature Granulocyte (auto (anjali t code = Absolute Immature Granulocyte (auto) 0.03 0-0.1 [facility]rapevineAmorphous sediment detection in urine sediment by light aratitxbfb6466-49-61 08:00:00* Test Item Value Reference Range Interpretation Comments Urine Amorphous Sediment (test code = 8246-1) FEW FEW [facility] – GrapevineHyaline casts detection in urine sediment by light ttwxaiyksi3323-18-99 08:00:00* Test Item Value Reference Range Interpretation Comments Urine Hyaline Casts (test code = 39560-4) 0-1 0-1 [facility] GrapevineCoarse granular casts detection in urine sediment by light uzlzlcvsmx9142-17-29 08:00:00* Test Item Value Reference Range Interpretation Comments Urine Coarse Granular Casts (test code = 79291-3) 1-5 >0 [facility] [place]rapevineMucus detection in urine sediment by light whqwsemqhu8814-63-49 08:00:00* Test Item Value Reference Range Interpretation Comments Urine Mucus (test code = 8247-9) MODERATE RARE [facility] magnesium measurement (mass/volume)2019-04-15 08:00:00* Test Item Value Reference Range Interpretation Comments Magnesium Level (test code = 91296-4) 2.1 1.3-2.1 [facility] or plasma lipase measurement (enzymatic activity/volume)2019-04-15 08:00:00* Test Item Value Reference Range Interpretation Comments Lipase (test code = 3040-3) 75 8-78 [facility] GrapevineAmorphous sediment detection in urine sediment by light ibobhntusk2679-27-49 08:00:00* Test Item Value Reference Range Interpretation Comments Urine Amorphous Sediment (test code = 8246-1) FEW FEW [facility] GrapevineHyaline casts detection in urine sediment by light ywlpivhkxq7019-33-50 08:00:00* Test Item Value Reference Range Interpretation Comments Urine Hyaline Casts (test code = 85465-9) 0-1 0-1 [facility] [place]rapevineCoarse granular casts detection in urine sediment by light zurgxnzpis0260-39-31 08:00:00* Test Item Value Reference Range Interpretation Comments Urine Coarse Granular Casts (test code = 65450-5) 1-5 >0 [facility] [place]vineMucus detection in urine sediment by light oefmuhfnth1908-90-64 08:00:00* Test Item Value Reference Range Interpretation Comments Urine Mucus (test code = 8247-9) MODERATE RARE [facility] Hospitaler[facility] plasma magnesium measurement (mass/volume)2019-04-15 08:00:00* Test Item Value Reference Range Interpretation Comments Magnesium Level (test code = 86280-6) 2.1 1.3-2.1 [facility]er[facility] or plasma lipase measurement (enzymatic activity/volume)2019-04-15 08:00:00* Test Item Value Reference Range Interpretation Comments Lipase (test code = 3040-3) 75 8-78 [facility] GrapevineBlood Fsmofux3832-07-58 11:18:00* Test Item Value Reference Range Interpretation Comments Blood Culture (test code = 47993465) NO GROWTH AFTER 5 DAYS, FINAL REPORT [facility] Ybmjtvf6216-88-89 11:18:00* Test Item Value Reference Range Interpretation Comments Blood Culture (test code = 57045139) NO GROWTH AFTER 5 DAYS, [facility] Entpknb8762-57-52 11:18:00* Test Item Value Reference Range Interpretation Comments Blood Culture (test code = 58853318) NO GROWTH AFTER 5 DAYS, FINAL REPORT [facility] Ksnakxh3863-25-56 11:18:00* Test Item Value Reference Range Interpretation Comments Blood Culture (test code = 68101001) NO GROWTH AFTER 5 DAYS, FINAL REPORT [facility] Zrxohec2863-92-14 11:18:00* Test Item Value Reference Range Interpretation Comments Blood Culture (test code = 24982447) NO GROWTH AFTER 5 DAYS, FINAL REPORT [facility] Svzurkj1426-25-16 12:00:00* Test Item Value Reference Range Interpretation Comments Bedside Glucose (test code = 18950-0) 142 70-120 H Meter ID: [id number] [facility] Glucose 2018-11-13 12:00:00* Test Item Value Reference Range Interpretation Comments Bedside Glucose (test code = 64076-8) 142 70-120 H Meter ID: [id number] [facility] Center Glucose 2018-11-13 12:00:00* Test Item Value Reference Range Interpretation Comments Bedside Glucose (test code = 60726-1) 142 70-120 H Meter ID: [id number] Glucose 2018-11-13 12:00:00* Test Item Value Reference Range Interpretation Comments Bedside Glucose (test code = 18179-0) 142 70-120 H Meter ID: [id number] Glucose 2018-11-13 12:00:00* Test Item Value Reference Range Interpretation Comments Bedside Glucose (test code = 79547-6) 142 70-120 H Meter ID: [id number] [facility] Glucose 2018-11-13 12:00:00* Test Item Value Reference Range Interpretation Comments Bedside Glucose (test code = 19980-7) 142 70-120 H Meter ID: [id number] [facility] Center Glucose 2018-11-13 12:00:00* Test Item Value Reference Range Interpretation Comments Bedside Glucose (test code = 04913-1) 142 70-120 H Meter ID: [id number] [facility] Glucose 2018-11-13 12:00:00* Test Item Value Reference Range Interpretation Comments Bedside Glucose (test code = 80087-3) 142 70-120 H Meter ID: [id number] [place]vineBlood Culture 2018-11-11 11:18:00* Test Item Value Reference Range Interpretation Comments Blood Culture (test code = 12811280) NO GROWTH AFTER 24 HOURS [facility] GrapevineDifferential Total Cells Counted 2018-11-11 07:27:00* Test Item Value Reference Range Interpretation Comments Differential Total Cells Counted (test code = Differen tial Total Cells Counted) 100 [facility] GrapevineNeutrophils % (Manual)2018-11-11 07:27:00 * Test Item Value Reference Range Interpretation Comments Neutrophils % (Manual) (test code = 46500-6) 90 40-74 H [facility] GrapevineLymphocytes % (Manual)2018-11-11 07:27:00 * Test Item Value Reference Range Interpretation Comments Lymphocytes % (Manual) (test code = 737-7) 7 19-48 L [facility] [place]rapevineMonocytes % (Manual)2018-11-11 07:27:00* Test Item Value Reference Range Interpretation Comments Monocytes % (Manual) (test code = 744-3) 3 3.4-9.0 L [facility] GrapevinePlatelet Fbxddvov2977-93-13 07:27:00* Test Item Value Reference Range Interpretation Comments Platelet Estimate (test code = 00971-3) ADEQUATE [facility] GrapevinePlatelet Morphology Fytyojc7028-09-53 07:27:00* Test Item Value Reference Range Interpretation Comments Platelet Morphology Comment (test code = 63338-8) NORMAL [facility] GrapevineRed Cell Morphology Pvzouii3224-94-62 07:27:00* Test Item Value Reference Range Interpretation Comments Red Cell Morphology Comment (test code = 6742-1) NORMAL [facility] GrapevineDifferential Total Cells Counted 2018-11-11 07:27:00* Test Item Value Reference Range Interpretation Comments Differential Total Cells Counted (test code = Differen tial Total Cells Counted) 100 [facility] [place]rapevineNeutrophils % (Manual)2018-11-11 07:27:00 * Test Item Value Reference Range Interpretation Comments Neutrophils % (Manual) (test code = 97844-2) 90 40-74 H [facility] [place]rapevineLymphocytes % (Manual)2018-11-11 07:27:00 * Test Item Value Reference Range Interpretation Comments Lymphocytes % (Manual) (test code = 737-7) 7 19-48 L [facility] [place]rapevineMonocytes % (Manual)2018-11-11 07:27:00* Test Item Value Reference Range Interpretation Comments Monocytes % (Manual) (test code = 744-3) 3 3.4-9.0 L [facility] GrapevinePlatelet Mrkykvsn3130-83-77 07:27:00* Test Item Value Reference Range Interpretation Comments Platelet Estimate (test code = 92892-5) ADEQUATE [facility] GrapevinePlatelet Morphology Waufrhp5913-48-24 07:27:00* Test Item Value Reference Range Interpretation Comments Platelet Morphology Comment (test code = 32311-6) NORMAL [facility] GrapevineRed Cell Morphology Dpvjeom9870-79-35 07:27:00* Test Item Value Reference Range Interpretation Comments Red Cell Morphology Comment (test code = 6742-1) NORMAL [facility] GrapevineDifferential Total Cells Counted 2018-11-11 07:27:00* Test Item Value Reference Range Interpretation Comments Differential Total Cells Counted (test code = Julianna tial Total Cells Counted) 100 [facility] [place]rapevineNeutrophils % (Manual)2018-11-11 07:27:00 * Test Item Value Reference Range Interpretation Comments Neutrophils % (Manual) (test code = 27849-7) 90 40-74 H [facility] [place]rapevineLymphocytes % (Manual)2018-11-11 07:27:00 * Test Item Value Reference Range Interpretation Comments Lymphocytes % (Manual) (test code = 737-7) 7 19-48 L [facility] [place]vineMonocytes % (Manual)2018-11-11 07:27:00* Test Item Value Reference Range Interpretation Comments Monocytes % (Manual) (test code = 744-3) 3 3.4-9.0 L [facility] [place]rapevinePlatelet Vpyarfiv5833-79-00 07:27:00* Test Item Value Reference Range Interpretation Comments Platelet Estimate (test code = 11204-7) ADEQUATE [facility] [place]rapevinePlatelet Morphology Osjhfbg0122-41-11 07:27:00* Test Item Value Reference Range Interpretation Comments Platelet Morphology Comment (test code = 51302-6) NORMAL [facility] GrapevineRed Cell Morphology Cbrkdhd4025-12-82 07:27:00* Test Item Value Reference Range Interpretation Comments Red Cell Morphology Comment (test code = 6742-1) NORMAL [facility] [place]rapevineDifferential Total Cells Counted 2018-11-11 07:27:00* Test Item Value Reference Range Interpretation Comments Differential Total Cells Counted (test code = Differen tial Total Cells Counted) 100 [facility] [place]rapevineNeutrophils % (Manual)2018-11-11 07:27:00 * Test Item Value Reference Range Interpretation Comments Neutrophils % (Manual) (test code = 47766-2) 90 40-74 H [facility] [place]rapevineLymphocytes % (Manual)2018-11-11 07:27:00 * Test Item Value Reference Range Interpretation Comments Lymphocytes % (Manual) (test code = 737-7) 7 19-48 L [facility] [place]vineMonocytes % (Manual)2018-11-11 07:27:00* Test Item Value Reference Range Interpretation Comments Monocytes % (Manual) (test code = 744-3) 3 3.4-9.0 L [facility] [place]rapevinePlatelet Fhgsfpqz1177-71-57 07:27:00* Test Item Value Reference Range Interpretation Comments Platelet Estimate (test code = 29739-2) ADEQUATE [facility] [place]rapevinePlatelet Morphology Gntezkc8058-47-96 07:27:00* Test Item Value Reference Range Interpretation Comments Platelet Morphology Comment (test code = 73789-1) NORMAL [facility] GrapevineRed Cell Morphology Keaokfn3100-31-83 07:27:00* Test Item Value Reference Range Interpretation Comments Red Cell Morphology Comment (test code = 6742-1) NORMAL [facility] [place]rapevineDifferential Total Cells Counted 2018-11-11 07:27:00* Test Item Value Reference Range Interpretation Comments Differential Total Cells Counted (test code = Differen tial Total Cells Counted) 100 [facility] [place]rapevineNeutrophils % (Manual)2018-11-11 07:27:00 * Test Item Value Reference Range Interpretation Comments Neutrophils % (Manual) (test code = 82905-2) 90 40-74 H [facility] [place]rapevineLymphocytes % (Manual)2018-11-11 07:27:00 * Test Item Value Reference Range Interpretation Comments Lymphocytes % (Manual) (test code = 737-7) 7 19-48 L [facility] [place]rapevineMonocytes % (Manual)2018-11-11 07:27:00* Test Item Value Reference Range Interpretation Comments Monocytes % (Manual) (test code = 744-3) 3 3.4-9.0 L [facility] GrapevinePlatelet Mphcozsd9400-91-30 07:27:00* Test Item Value Reference Range Interpretation Comments Platelet Estimate (test code = 92818-3) ADEQUATE [facility] GrapevinePlatelet Morphology Hnikfnf4179-51-78 07:27:00* Test Item Value Reference Range Interpretation Comments Platelet Morphology Comment (test code = 18416-4) NORMAL [facility] GrapevineRed Cell Morphology Jjyoajg5459-04-66 07:27:00* Test Item Value Reference Range Interpretation Comments Red Cell Morphology Comment (test code = 6742-1) NORMAL [facility] GrapevineDifferential Total Cells Counted 2018-11-11 07:27:00* Test Item Value Reference Range Interpretation Comments Differential Total Cells Counted (test code = Julianna galindol Total Cells Counted) 100 [facility] GrapevineNeutrophils % (Manual)2018-11-11 07:27:00 * Test Item Value Reference Range Interpretation Comments Neutrophils % (Manual) (test code = 45178-5) 90 40-74 H [facility] [place]rapevineLymphocytes % (Manual)2018-11-11 07:27:00 * Test Item Value Reference Range Interpretation Comments Lymphocytes % (Manual) (test code = 737-7) 7 19-48 L [facility] [place]rapevineMonocytes % (Manual)2018-11-11 07:27:00* Test Item Value Reference Range Interpretation Comments Monocytes % (Manual) (test code = 744-3) 3 3.4-9.0 L [facility] [place]rapevinePlatelet Jphxxleh6329-55-58 07:27:00* Test Item Value Reference Range Interpretation Comments Platelet Estimate (test code = 32417-9) ADEQUATE [facility] [place]rapevinePlatelet Morphology Zyokpxc8007-04-48 07:27:00* Test Item Value Reference Range Interpretation Comments Platelet Morphology Comment (test code = 78924-5) NORMAL [facility] GrapevineRed Cell Morphology Qowpbko9563-71-15 07:27:00* Test Item Value Reference Range Interpretation Comments Red Cell Morphology Comment (test code = 6742-1) NORMAL [facility] [place]rapevineDifferential Total Cells Counted 2018-11-11 07:27:00* Test Item Value Reference Range Interpretation Comments Differential Total Cells Counted (test code = Differen tial Total Cells Counted) 100 [facility] [place]rapevineNeutrophils % (Manual)2018-11-11 07:27:00 * Test Item Value Reference Range Interpretation Comments Neutrophils % (Manual) (test code = 19293-1) 90 40-74 H [facility] [place]rapevineLymphocytes % (Manual)2018-11-11 07:27:00 * Test Item Value Reference Range Interpretation Comments Lymphocytes % (Manual) (test code = 737-7) 7 19-48 L [facility] [place]rapevineMonocytes % (Manual)2018-11-11 07:27:00* Test Item Value Reference Range Interpretation Comments Monocytes % (Manual) (test code = 744-3) 3 3.4-9.0 L [facility] [place]rapevinePlatelet Reftazzi4071-16-66 07:27:00* Test Item Value Reference Range Interpretation Comments Platelet Estimate (test code = 27026-1) ADEQUATE [facility] [place]rapevinePlatelet Morphology Voljrdg6677-21-66 07:27:00* Test Item Value Reference Range Interpretation Comments Platelet Morphology Comment (test code = 36678-3) NORMAL [facility] [place]rapevineRed Cell Morphology Tmutxsu5063-77-25 07:27:00* Test Item Value Reference Range Interpretation Comments Red Cell Morphology Comment (test code = 6742-1) NORMAL [facility] [place]rapevineDifferential Total Cells Counted 2018-11-11 07:27:00* Test Item Value Reference Range Interpretation Comments Differential Total Cells Counted (test code = Differen tial Total Cells Counted) 100 [facility] [place]rapevineNeutrophils % (Manual)2018-11-11 07:27:00 * Test Item Value Reference Range Interpretation Comments Neutrophils % (Manual) (test code = 03086-1) 90 40-74 H [facility] [place]rapevineLymphocytes % (Manual)2018-11-11 07:27:00 * Test Item Value Reference Range Interpretation Comments Lymphocytes % (Manual) (test code = 737-7) 7 19-48 L [facility] CenterMonocytes % (Manual)2018-11-11 07:27:00* Test Item Value Reference Range Interpretation Comments Monocytes % (Manual) (test code = 744-3) 3 3.4-9.0 L [facility] [place]rapevinePlatelet Mkwoqfwr7868-69-62 07:27:00* Test Item Value Reference Range Interpretation Comments Platelet Estimate (test code = 96400-3) ADEQUATE [facility] [place]rapevinePlatelet Morphology Hjagoux1509-32-43 07:27:00* Test Item Value Reference Range Interpretation Comments Platelet Morphology Comment (test code = 26456-8) NORMAL [facility] [place]rapevineRed Cell Morphology Xmohmll0032-79-49 07:27:00* Test Item Value Reference Range Interpretation Comments Red Cell Morphology Comment (test code = 6742-1) NORMAL [facility] [place]rapevineDifferential Total Cells Counted 2018-11-11 07:27:00* Test Item Value Reference Range Interpretation Comments Differential Total Cells Counted (test code = Differen tial Total Cells Counted) 100 [facility] [place]rapevineNeutrophils % (Manual)2018-11-11 07:27:00 * Test Item Value Reference Range Interpretation Comments Neutrophils % (Manual) (test code = 63363-3) 90 40-74 H [facility] [place]rapevineLymphocytes % (Manual)2018-11-11 07:27:00 * Test Item Value Reference Range Interpretation Comments Lymphocytes % (Manual) (test code = 737-7) 7 19-48 L [facility] [place]rapevineMonocytes % (Manual)2018-11-11 07:27:00* Test Item Value Reference Range Interpretation Comments Monocytes % (Manual) (test code = 744-3) 3 3.4-9.0 L [facility] [place]rapevinePlatelet Ontlrnzj9146-52-60 07:27:00* Test Item Value Reference Range Interpretation Comments Platelet Estimate (test code = 10045-4) ADEQUATE [facility] [place]rapevinePlatelet Morphology Akfevpd6113-44-38 07:27:00* Test Item Value Reference Range Interpretation Comments Platelet Morphology Comment (test code = 01683-0) NORMAL [facility] GrapevineRed Cell Morphology Ikdynop7406-97-72 07:27:00* Test Item Value Reference Range Interpretation Comments Red Cell Morphology Comment (test code = 6742-1) NORMAL [facility] Bnvka2803-31-36 06:22:00* Test Item Value Reference Range Interpretation Comments Sodium Level (test code = 2951-2) 139 136-145 [facility] GrapevinePotassium Dmpvn1839-16-62 06:22:00* Test Item Value Reference Range Interpretation Comments Potassium Level (test code = 2823-3) 4.1 3.5-5.1 [facility] GrapevineChloride Kvcki6360-22-67 06:22:00* Test Item Value Reference Range Interpretation Comments Chloride Level (test code = 2075-0) 112 98-107 H [facility] GrapevineCarbon Dioxide Vjabc9565-99-14 06:22:00* Test Item Value Reference Range Interpretation Comments Carbon Dioxide Level (test code = 2028-9) 21 22-29 L [facility] GrapevineAnion Gpq1451-63-28 06:22:00* Test Item Value Reference Range Interpretation Comments Anion Gap (test code = 38784-8) 10.1 8-16 [facility] GrapevineBlood Urea Phqshcaz7067-19-24 06:22:00* Test Item Value Reference Range Interpretation Comments Blood Urea Nitrogen (test code = 3094-0) 15 7-26 [facility] GrapevineCreatinine2019-06-19 06:22:00* Test Item Value Reference Range Interpretation Comments Creatinine (test code = 2160-0) 0.94 0.57-1.11 [facility] GrapevineBUN/Creatinine Ardkt2635-70-76 06:22:00* Test Item Value Reference Range Interpretation Comments BUN/Creatinine Ratio (test code = 3097-3) 16 6-25 [facility] GrapevineEstimat Glomerular Filtration Rate 2018-11-11 06:22:00* Test Item Value Reference Range Interpretation Comments Estimat Glomerular Filtration Rate (test code = 892739360) 57 >60 L Ranges were taken from the National Kidney Disease Education Program and the [facility] Kidney Foundation literature.Reference ranges:60 or greater: Vrxxpo65-91 ( for 3 consecutive months): Chronic kidney disease 15 or less: Kidney failureBaylor [facility] & [facility] – GrapevineGlucose Zfxwh7967-79-03 06:22:00* Test Item Value Reference Range Interpretation Comments Glucose Level (test code = HET9682) 118 74-118 [facility] GrapevineCalcium Ioqcz6229-53-98 06:22:00* Test Item Value Reference Range Interpretation Comments Calcium Level (test code = 04080-9) 7.7 8.4-10.2 L [facility] GrapevineTotal Pbcnstkjs1739-26-07 06:22:00* Test Item Value Reference Range Interpretation Comments Total Bilirubin (test code = 1975-2) 0.4 0.2-1.2 [facility] GrapevineAspartate Amino Transf (AST/SGOT) 2018-11-11 06:22:00* Test Item Value Reference Range Interpretation Comments Aspartate Amino Transf (AST/SGOT) (test code = Aspartate Amino Transf (AST/SGOT)) 25 5-34 [facility] GrapevineAlanine Aminotransferase (ALT/SGPT) 2018-11-11 06:22:00* Test Item Value Reference Range Interpretation Comments Alanine Aminotransferase (ALT/SGPT) (test code = 1742-6) 23 0-55 [facility] GrapevineTotal Yyyfjws9530-26-34 06:22:00* Test Item Value Reference Range Interpretation Comments Total Protein (test code = 2885-2) 5.3 6.5-8.1 L [facility] GrapevineAlbumin2019-06-19 06:22:00* Test Item Value Reference Range Interpretation Comments Albumin (test code = 1751-7) 2.7 3.5-5.0 L [facility] GrapevineGlobulin2019-06-19 06:22:00* Test Item Value Reference Range Interpretation Comments Globulin (test code = 12533-9) 2.6 2.3-3.5 [facility] GrapevineAlbumin/Globulin Annwv6693-49-52 06:22:00 * Test Item Value Reference Range Interpretation Comments Albumin/Globulin Ratio (test code = 1759-0) 1.0 0.8-2.0 [facility] GrapevineAlkaline Ymtvlkwgggb5871-21-70 06:22:00* Test Item Value Reference Range Interpretation Comments Alkaline Phosphatase (test code = 6768-6) 61 40-150 [facility] GrapevineAmylase Dwyde1875-03-46 06:22:00* Test Item Value Reference Range Interpretation Comments Amylase Level (test code = 1798-8) 52 25-125 [facility] GrapevineLipase2019-06-19 06:22:00* Test Item Value Reference Range Interpretation Comments Lipase (test code = 3040-3) 39 8-78 [facility] GrapevineAmylase Sdboc2245-07-59 06:22:00* Test Item Value Reference Range Interpretation Comments Amylase Level (test code = 1798-8) 52 25-125 [facility] GrapevineAmylase Ehyuq5251-03-76 06:22:00* Test Item Value Reference Range Interpretation Comments Amylase Level (test code = 1798-8) 52 25-125 [facility] GrapevineAmylase Zmwyp5473-33-76 06:22:00* Test Item Value Reference Range Interpretation Comments Amylase Level (test code = 1798-8) 52 25-125 [facility] GrapevineAmylase Qgazc0749-25-22 06:22:00* Test Item Value Reference Range Interpretation Comments Amylase Level (test code = 1798-8) 52 25-125 [facility] GrapevineAmylase Tvwzc5903-03-25 06:22:00* Test Item Value Reference Range Interpretation Comments Amylase Level (test code = 1798-8) 52 25-125 [facility] GrapevineAmylase Cnbth4087-17-75 06:22:00* Test Item Value Reference Range Interpretation Comments Amylase Level (test code = 1798-8) 52 25-125 [facility] GrapevineAmylase Vqrjw0835-21-46 06:22:00* Test Item Value Reference Range Interpretation Comments Amylase Level (test code = 1798-8) 52 25-125 [facility] GrapevineAmylase Hagca6624-33-44 06:22:00* Test Item Value Reference Range Interpretation Comments Amylase Level (test code = 1798-8) 52 25-125 [facility]vineWhite Blood Abhod6428-32-93 06:17:00* Test Item Value Reference Range Interpretation Comments White Blood Count (test code = 6690-2) 9.38 4.8-10.8 [facility] GrapevineRed Blood Sldcm7494-27-33 06:17:00* Test Item Value Reference Range Interpretation Comments Red Blood Count (test code = 789-8) 3.27 3.6-5.1 L [facility]vineHemoglobin2019-06-19 06:17:00* Test Item Value Reference Range Interpretation Comments Hemoglobin (test code = 42773-6) 10.0 12.0-16.0 L [facility]vineHematocrit2019-06-19 06:17:00* Test Item Value Reference Range Interpretation Comments Hematocrit (test code = 4544-3) 31.0 34.2-44.1 L [facility] GrapevineMean Corpuscular Ggvajj7338-31-53 06:17:00* Test Item Value Reference Range Interpretation Comments Mean Corpuscular Volume (test code = 787-2) 94.8 81-99 [facility]vineMean Corpuscular Xovtrndtgw1167-68-93 06:17:00* Test Item Value Reference Range Interpretation Comments Mean Corpuscular Hemoglobin (test code = 785-6) 30.6 28-32 [facility]vineMean Corpuscular Hemoglobin Concent 2018-11-11 06:17:00* Test Item Value Reference Range Interpretation Comments Mean Corpuscular Hemoglobin Concent (test code = 786-4) 32.3 31-35 [facility] G[facility]vineRed Cell Distribution Ltrvm8101-68-66 06:17:00* Test Item Value Reference Range Interpretation Comments Red Cell Distribution Width (test code = 47180-1) 13.3 11.7 -14.4 [facility] GrapevinePlatelet Cckzl5533-80-52 06:17:00* Test Item Value Reference Range Interpretation Comments Platelet Count (test code = 777-3) 175 140-360 [facility] GrapevineNeutrophils (%) (Auto)2018-11-11 06:17:00 * Test Item Value Reference Range Interpretation Comments Neutrophils (%) (Auto) (test code = 55273-0) 86.2 38.7-80.0 H [facility] GrapevineLymphocytes (%) (Auto)2018-11-11 06:17:00 * Test Item Value Reference Range Interpretation Comments Lymphocytes (%) (Auto) (test code = 736-9) 6.2 18.0-39.1 L [facility]rapevineMonocytes (%) (Auto)2018-11-11 06:17:00* Test Item Value Reference Range Interpretation Comments Monocytes (%) (Auto) (test code = 5905-5) 6.5 4.4-11.3 [facility]vineEosinophils (%) (Auto)2018-11-11 06:17:00 * Test Item Value Reference Range Interpretation Comments Eosinophils (%) (Auto) (test code = 713-8) 0.0 0.0-6.0 [facility]vineBasophils (%) (Auto)2018-11-11 06:17:00* Test Item Value Reference Range Interpretation Comments Basophils (%) (Auto) (test code = 706-2) 0.1 0.0-1.0 [facility] GrapevineIM GRANULOCYTES %2018-11-11 06:17:00* Test Item Value Reference Range Interpretation Comments IM GRANULOCYTES % (test code = IM GRANULOCYTES %) 1.0 0.0- 1.0 [facility]vineNeutrophils # (Auto)2018-11-11 06:17:00* Test Item Value Reference Range Interpretation Comments Neutrophils # (Auto) (test code = 751-8) 8.1 2.1-6.9 H [facility]vineLymphocytes # (Auto)2018-11-11 06:17:00* Test Item Value Reference Range Interpretation Comments Lymphocytes # (Auto) (test code = 47684-4) 0.6 1.0-3.2 L [facility]vineMonocytes # (Auto)2018-11-11 06:17:00* Test Item Value Reference Range Interpretation Comments Monocytes # (Auto) (test code = 742-7) 0.6 0.2-0.8 [facility]vineEosinophils # (Auto)2018-11-11 06:17:00* Test Item Value Reference Range Interpretation Comments Eosinophils # (Auto) (test code = 711-2) 0.0 0.0-0.4 [facility]vineBasophils # (Auto)2018-11-11 06:17:00* Test Item Value Reference Range Interpretation Comments Basophils # (Auto) (test code = 704-7) 0.0 0.0-0.1 [facility] GrapevineAbsolute Immature Granulocyte (auto 2018-11-11 06:17:00* Test Item Value Reference Range Interpretation Comments Absolute Immature Granulocyte (auto (anjali t code = Absolute Immature Granulocyte (auto) 0.09 0-0.1 [facility] GrapevineInfluenza Virus Types A,B Antigen 2018-11-10 05:38:00* Test Item Value Reference Range Interpretation Comments Influenza Virus Types A,B Antigen (test code = 20074-4) NEGATIVE NEGATIVE [facility] GrapevineInfluenza Virus Types A,B Antigen 2018-11-10 05:38:00* Test Item Value Reference Range Interpretation Comments Influenza Virus Types A,B Antigen (test code = 19180-6) NEGATIVE NEGATIVE [facility] GrapevineInfluenza Virus Types A,B Antigen 2018-11-10 05:38:00* Test Item Value Reference Range Interpretation Comments Influenza Virus Types A,B Antigen (test code = 17287-5) NEGATIVE NEGATIVE [facility] GrapevineInfluenza Virus Types A,B Antigen 2018-11-10 05:38:00* Test Item Value Reference Range Interpretation Comments Influenza Virus Types A,B Antigen (test code = 87886-8) NEGATIVE NEGATIVE [facility] GrapevineInfluenza Virus Types A,B Antigen 2018-11-10 05:38:00* Test Item Value Reference Range Interpretation Comments Influenza Virus Types A,B Antigen (test code = 88642-6) NEGATIVE NEGATIVE [facility] GrapevineInfluenza Virus Types A,B Antigen 2018-11-10 05:38:00* Test Item Value Reference Range Interpretation Comments Influenza Virus Types A,B Antigen (test code = 27183-1) NEGATIVE NEGATIVE [facility]vineInfluenza Virus Types A,B Antigen 2018-11-10 05:38:00* Test Item Value Reference Range Interpretation Comments Influenza Virus Types A,B Antigen (test code = 65231-0) NEGATIVE NEGATIVE [facility]vineInfluenza Virus Types A,B Antigen 2018-11-10 05:38:00* Test Item Value Reference Range Interpretation Comments Influenza Virus Types A,B Antigen (test code = 59797-5) NEGATIVE NEGATIVE [facility]vineInfluenza Virus Types A,B Antigen 2018-11-10 05:38:00* Test Item Value Reference Range Interpretation Comments Influenza Virus Types A,B Antigen (test code = 54208-2) NEGATIVE NEGATIVE [facility] GrapevineCT ABDOMEN/PELVIS CQ4023-25-40 05:23:00 [place] [address] Patient Name: YEU RAMSEY MR #: [id number] : 1935 Age/Sex: 83/F Req #: [id number] Adm Physician: Ordered by: FELICITY ALONSO MD Report #: [id number] Location: Room/Bed: Procedure: 0618 -0004 CT/CT ABDOMEN/PELVIS WO Exam Date: 11/10/18 Ex am Time: 424 REPORT STATUS: Signed EXAM: CT Abdomen and Pelvis WITHOUT contrast INDICATION: ABD PA IN, N/V/D [id number] Y COMPARISON: CT dated 05/21/2018 TECHNIQU [...] MD 6 Transcribed By: GELY on 11/10/18536 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 Y TO: FELICITY ALONSO MD CHEST SINGLE (PORTABLE)2018-11-10 05:21:00 [place] [address] Patient Name: YUE RAMSEY MR #: [id number] : 1935 Age/Sex: 83/F Req #: [id number] Adm Physician: Ordered by: FELICITY ALONSO MD Report #: [id number] Location: ER Room/Bed: Procedure: 0618 -0013 DX/CHEST SINGLE (PORTABLE) Exam Date: 11/10/18 Exam Time: 424 REPORT STATUS: Sig leeroy EXAMINATION: CHEST SINGLE (PORTABLE) INDICATION: WEAKN ESS [id number] Y COMPARISON: 03/13/2017 FINDINGS: A P [...] 11/10/18522 COPY TO: FELICITY ALONSO MD Urine [id number] 05:00:00* Test Item Value Reference Range Interpretation Comments Urine WBC (test code = 5821-4) 6-10 0-5 H [facility]vineUrine NCI9389-29-26 05:00:00* Test Item Value Reference Range Interpretation Comments Urine RBC (test code = 54669-3) 6-10 0-5 H [facility]vineUrine Kmyuizcw0839-95-76 05:00:00* Test Item Value Reference Range Interpretation Comments Urine Bacteria (test code = 97996-6) MODERATE NONE H [facility]vineUrine Epithelial Eeqdz4699-53-35 05:00:00 * Test Item Value Reference Range Interpretation Comments Urine Epithelial Cells (test code = 59627-7) FEW NONE [facility] GrapevineUrine Gmhvs9298-40-90 05:00:00* Test Item Value Reference Range Interpretation Comments Urine Mucus (test code = 8247-9) MODERATE RARE H [facility] G[facility]vineUrine Vfgir7809-18-58 04:47:00* Test Item Value Reference Range Interpretation Comments Urine Color (test code = 5778-6) YELLOW YELLOW [facility] GrapevineUrine Mcolpfe2896-40-67 04:47:00* Test Item Value Reference Range Interpretation Comments Urine Clarity (test code = 18299-3) CLEAR CLEAR [facility] GrapevineUrine Specific Qjoiwzv2362-42-86 04:47:00 * Test Item Value Reference Range Interpretation Comments Urine Specific [place] (test code = 5811-5) 1.015 1.010-1.02 5 [facility] GrapevineUrine cR2157-49-29 04:47:00* Test Item Value Reference Range Interpretation Comments Urine pH (test code = 34740-6) 6 5-7 [facility]vineUrine Leukocyte Bgkzemyi8967-01-91 04:47:00* Test Item Value Reference Range Interpretation Comments Urine Leukocyte Esterase (test code = 81229-3) NEGATIVE NEGATIV E [facility] G[facility]vineUrine Dqkcbns5162-92-72 04:47:00* Test Item Value Reference Range Interpretation Comments Urine Nitrite (test code = 09812-3) NEGATIVE NEGATIVE [facility] GrapevineUrine Aeylevg3952-81-47 04:47:00* Test Item Value Reference Range Interpretation Comments Urine Protein (test code = 98674-8) TRACE NEGATIVE H [facility] GrapevineUrine Glucose (UA)2018-11-10 04:47:00* Test Item Value Reference Range Interpretation Comments Urine Glucose (UA) (test code = 86621-6) NEGATIVE NEGATIVE [facility] GrapevineUrine Vjnwiry4611-80-24 04:47:00* Test Item Value Reference Range Interpretation Comments Urine Ketones (test code = 62375-3) NEGATIVE NEGATIVE [facility] G[facility]vineUrine Yclamoqtvkhx6585-54-08 04:47:00* Test Item Value Reference Range Interpretation Comments Urine Urobilinogen (test code = 77066-1) 0.2 0.2-1 [facility] G[facility]vineUrine Rvfghbjoy7879-71-10 04:47:00* Test Item Value Reference Range Interpretation Comments Urine Bilirubin (test code = 1977-8) NEGATIVE NEGATIVE [facility]vineUrine Ahgqg5669-35-68 04:47:00* Test Item Value Reference Range Interpretation Comments Urine Blood (test code = 20141-0) NEGATIVE NEGATIVE [facility] GrapevineCreatine Kinase FP5567-66-04 04:25:00* Test Item Value Reference Range Interpretation Comments Creatine Kinase MB (test code = 74196-9) 1.70 0-5.0 [facility] GrapevineTroponin T7371-42-05 04:25:00* Test Item Value Reference Range Interpretation Comments Troponin I (test code = VWV7158) < 0.001 0-0.300 [facility] GrapevineCreatine Eaegwq8199-46-30 04:01:00* Test Item Value Reference Range Interpretation Comments Creatine Kinase (test code = 2157-6) 124 29168 [facility] GrapevineCT ABDOMEN/PELVIS RF5923-28-15 19:51:00 [facility] [address] [place] [address] Patient Name: YUE RAMSEY MR #: [id number] : 1935 Age/Sex: 82/F Req #: [id number] Adm Physician: Ordered by: BHARATHI JOHNSTON CENTRAL OFFICE EQUIPMENT ENGINEER Report #: [id number] Location: ER Room/Bed: Procedure: 5166-4971 C T/CT ABDOMEN/PELVIS WO Exam Date: 05/21/18 Exam Time : 1818 REPORT STATUS: Signed EXA M: CT Abdomen and Pelvis WITHOUT contrast INDICATION: Vomiting ABD PAIN tv 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 [place] wt 05/21/18@1750 COMPARISON: Abdominal ultrasound 03/08/2017 [...] TO: BHARATHI JOHNSTON NP Differential Total Cells Bcgjlpg3614-91-92 15:22:00* Test Item Value Reference Range Interpretation Comments Differential Total Cells Counted (test code = Differen tial Total Cells Counted) 100 [facility]vineNeutrophils % (Manual)2018-05-21 15:22:00 * Test Item Value Reference Range Interpretation Comments Neutrophils % (Manual) (test code = 60125-6) 83 40-74 H [facility] GrapevineLymphocytes % (Manual)2018-05-21 15:22:00 * Test Item Value Reference Range Interpretation Comments Lymphocytes % (Manual) (test code = 737-7) 9 19-48 L [facility] GrapevineMonocytes % (Manual)2018-05-21 15:22:00* Test Item Value Reference Range Interpretation Comments Monocytes % (Manual) (test code = 744-3) 3 3.4-9.0 L [facility]vineEosinophils % (Manual)2018-05-21 15:22:00 * Test Item Value Reference Range Interpretation Comments Eosinophils % (Manual) (test code = 714-6) 1 0-7 [facility] GrapevineReactive Bhdbfovehlr6929-32-47 15:22:00* Test Item Value Reference Range Interpretation Comments Reactive Lymphocytes (test code = 54331-3) 4 [facility] GrapevinePlatelet Tyteoibj4302-19-29 15:22:00* Test Item Value Reference Range Interpretation Comments Platelet Estimate (test code = 52983-3) ADEQUATE [facility] GrapevineRed Cell Morphology Toyjgrw9333-90-96 15:22:00* Test Item Value Reference Range Interpretation Comments Red Cell Morphology Comment (test code = 6742-1) NORMAL [facility]vineEosinophils % (Manual)2018-05-21 15:22:00 * Test Item Value Reference Range Interpretation Comments Eosinophils % (Manual) (test code = 714-6) 1 0-7 [facility] GrapevineReactive Ucxnhzjaeat3878-57-07 15:22:00* Test Item Value Reference Range Interpretation Comments Reactive Lymphocytes (test code = 24544-2) 4 [facility] GrapevineUrine Rskyb5660-16-18 14:51:00* Test Item Value Reference Range Interpretation Comments Urine Color (test code = 5778-6) YELLOW YELLOW [facility] GrapevineUrine Ibtiocl4189-76-72 14:51:00* Test Item Value Reference Range Interpretation Comments Urine Clarity (test code = 08145-7) CLOUDY CLEAR H [facility] GrapevineUrine Specific Wpwmktj4571-60-88 14:51:00 * Test Item Value Reference Range Interpretation Comments Urine Specific [place] (test code = 5811-5) 1.025 1.010-1.02 5 [facility] GrapevineUrine oE1150-94-11 14:51:00* Test Item Value Reference Range Interpretation Comments Urine pH (test code = 52139-9) 5 5-7 [facility] GrapevineUrine Leukocyte Rjneoccn4335-84-64 14:51:00* Test Item Value Reference Range Interpretation Comments Urine Leukocyte Esterase (test code = 5799-2) 1+ NEGATIVE H [facility] Jnhsppn9969-07-27 14:51:00* Test Item Value Reference Range Interpretation Comments Urine Nitrite (test code = 79419-9) NEGATIVE NEGATIVE [facility] GrapevineUrine Mtmysus5560-16-13 14:51:00* Test Item Value Reference Range Interpretation Comments Urine Protein (test code = 5804-0) 1+ NEGATIVE H [facility] Glucose (UA)2018-05-21 14:51:00* Test Item Value Reference Range Interpretation Comments Urine Glucose (UA) (test code = 2349-9) NEGATIVE NEGATIVE [facility] Ufmznii1291-36-23 14:51:00* Test Item Value Reference Range Interpretation Comments Urine Ketones (test code = 69095-3) TRACE NEGATIVE H [facility] Iyncpkberzrm7931-06-83 14:51:00* Test Item Value Reference Range Interpretation Comments Urine Urobilinogen (test code = 20861-0) 0.2 0.2-1 [facility]vineUrine Oupbemzmb7874-23-05 14:51:00* Test Item Value Reference Range Interpretation Comments Urine Bilirubin (test code = 1978-6) NEGATIVE NEGATIVE [facility] G[facility]vineUrine Hflma0830-38-71 14:51:00* Test Item Value Reference Range Interpretation Comments Urine Blood (test code = 52147-7) NEGATIVE NEGATIVE [facility] GrapevineUrine LJX8187-44-65 14:51:00* Test Item Value Reference Range Interpretation Comments Urine WBC (test code = 5821-4) 6-10 0-5 H [facility] G[facility]vineUrine ADW7579-91-59 14:51:00* Test Item Value Reference Range Interpretation Comments Urine RBC (test code = 23302-1) 6-10 0-5 H [facility]vineUrine Umzhrsub2391-01-18 14:51:00* Test Item Value Reference Range Interpretation Comments Urine Bacteria (test code = 63792-4) MANY NONE H [facility] G[facility]vineUrine Epithelial Mujqb5277-38-59 14:51:00 * Test Item Value Reference Range Interpretation Comments Urine Epithelial Cells (test code = 10479-8) MANY NONE [facility] GrapevineUrine Coarse Granular Zzoop5317-49-95 14:51:00* Test Item Value Reference Range Interpretation Comments Urine Coarse Granular Casts (test code = 78105-0) 1-5 >0 H [facility]vineUrine Coarse Granular Khmjk9001-88-25 14:51:00* Test Item Value Reference Range Interpretation Comments Urine Coarse Granular Casts (test code = 07319-8) 1-5 >0 [facility] Hrwug6371-95-38 14:32:00* Test Item Value Reference Range Interpretation Comments Sodium Level (test code = 2951-2) 136 136-145 [facility] GrapevinePotassium Zphqq3486-28-42 14:32:00* Test Item Value Reference Range Interpretation Comments Potassium Level (test code = 2823-3) 3.9 3.5-5.1 [facility] GrapevineChloride Olkfs9307-45-88 14:32:00* Test Item Value Reference Range Interpretation Comments Chloride Level (test code = 2075-0) 103 98-107 [facility] GrapevineCarbon Dioxide Jtyjc2006-67-27 14:32:00* Test Item Value Reference Range Interpretation Comments Carbon Dioxide Level (test code = 2028-9) 19 22-29 L [facility] GrapevineAnion Tfn9978-46-30 14:32:00* Test Item Value Reference Range Interpretation Comments Anion Gap (test code = 07463-1) 17.9 8-16 H [facility] GrapevineBlood Urea Zukoevqj4038-70-45 14:32:00* Test Item Value Reference Range Interpretation Comments Blood Urea Nitrogen (test code = 3094-0) 27 7-26 H [facility] GrapevineCreatinine2018-12-27 14:32:00* Test Item Value Reference Range Interpretation Comments Creatinine (test code = 2160-0) 1.55 0.57-1.11 H [facility] GrapevineBUN/Creatinine Decks0484-99-89 14:32:00* Test Item Value Reference Range Interpretation Comments BUN/Creatinine Ratio (test code = 3097-3) 17 6-25 [facility] GrapevineEstimat Glomerular Filtration Rate 2018-05-21 14:32:00* Test Item Value Reference Range Interpretation Comments Estimat Glomerular Filtration Rate (test code = 724690986) 32 >60 L Ranges were taken from the National Kidney Disease Education Program and the [facility] Kidney Foundation literature.Reference ranges:60 or greater: Jequzr29-57 ( for 3 consecutive months): Chronic kidney disease 15 or less: Kidney failureBaylor Scott & [facility] Center – GrapevineGlucose Iskjh5950-54-84 14:32:00* Test Item Value Reference Range Interpretation Comments Glucose Level (test code = IFY5474) 199 74-118 H [facility] GrapevineCalcium Nedko4578-62-29 14:32:00* Test Item Value Reference Range Interpretation Comments Calcium Level (test code = 16119-5) 8.8 8.4-10.2 [facility] GrapevineTotal Cxibqiaxz5740-67-63 14:32:00* Test Item Value Reference Range Interpretation Comments Total Bilirubin (test code = 1975-2) 0.7 0.2-1.2 [facility] GrapevineAspartate Amino Transf (AST/SGOT) 2018-05-21 14:32:00* Test Item Value Reference Range Interpretation Comments Aspartate Amino Transf (AST/SGOT) (test code = Aspartate Amino Transf (AST/SGOT)) 31 5-34 [facility] GrapevineAlanine Aminotransferase (ALT/SGPT) 2018-05-21 14:32:00* Test Item Value Reference Range Interpretation Comments Alanine Aminotransferase (ALT/SGPT) (test code = 1742-6) 36 0-55 [facility] GrapevineTotal Nfjovtd1909-68-20 14:32:00* Test Item Value Reference Range Interpretation Comments Total Protein (test code = 2885-2) 7.3 6.5-8.1 [facility] GrapevineAlbumin2018-12-27 14:32:00* Test Item Value Reference Range Interpretation Comments Albumin (test code = 1751-7) 3.7 3.5-5.0 [facility] GrapevineGlobulin2018-12-27 14:32:00* Test Item Value Reference Range Interpretation Comments Globulin (test code = 97229-2) 3.6 2.3-3.5 H [facility] GrapevineAlbumin/Globulin Hrmmc5112-13-93 14:32:00 * Test Item Value Reference Range Interpretation Comments Albumin/Globulin Ratio (test code = 1759-0) 1.0 0.8-2.0 [facility] GrapevineAlkaline Xuytprxettu9836-06-10 14:32:00* Test Item Value Reference Range Interpretation Comments Alkaline Phosphatase (test code = 6768-6) 69 40-150 [facility] GrapevineWhite Blood Wlwrb2694-64-54 14:26:00* Test Item Value Reference Range Interpretation Comments White Blood Count (test code = 6690-2) 12.81 4.8-10.8 H [facility] GrapevineRed Blood Qdzwz3495-04-93 14:26:00* Test Item Value Reference Range Interpretation Comments Red Blood Count (test code = 789-8) 4.30 3.6-5.1 [facility] GrapevineHemoglobin2018-12-27 14:26:00* Test Item Value Reference Range Interpretation Comments Hemoglobin (test code = 12308-5) 13.6 12.0-16.0 [facility] GrapevineHematocrit2018-12-27 14:26:00* Test Item Value Reference Range Interpretation Comments Hematocrit (test code = 4544-3) 40.6 34.2-44.1 [facility] GrapevineMean Corpuscular Vamvsg4083-67-79 14:26:00* Test Item Value Reference Range Interpretation Comments Mean Corpuscular Volume (test code = 787-2) 94.4 81-99 [facility] GrapevineMean Corpuscular Ffjovkhwur9454-19-21 14:26:00* Test Item Value Reference Range Interpretation Comments Mean Corpuscular Hemoglobin (test code = 785-6) 31.6 28-32 [facility] GrapevineMean Corpuscular Hemoglobin Concent 2018-05-21 14:26:00* Test Item Value Reference Range Interpretation Comments Mean Corpuscular Hemoglobin Concent (test code = 786-4) 33.5 31-35 [facility] GrapevineRed Cell Distribution Sejfb9178-59-49 14:26:00* Test Item Value Reference Range Interpretation Comments Red Cell Distribution Width (test code = 88009-3) 13.6 11.7 -14.4 [facility] GrapevinePlatelet Kgksn5679-41-24 14:26:00* Test Item Value Reference Range Interpretation Comments Platelet Count (test code = 777-3) 254 140-360 [facility] GrapevineNeutrophils (%) (Auto)2018-05-21 14:26:00 * Test Item Value Reference Range Interpretation Comments Neutrophils (%) (Auto) (test code = 26587-5) 91.9 38.7-80.0 H [facility] GrapevineLymphocytes (%) (Auto)2018-05-21 14:26:00 * Test Item Value Reference Range Interpretation Comments Lymphocytes (%) (Auto) (test code = 736-9) 3.0 18.0-39.1 L [facility] GrapevineMonocytes (%) (Auto)2018-05-21 14:26:00* Test Item Value Reference Range Interpretation Comments Monocytes (%) (Auto) (test code = 5905-5) 4.2 4.4-11.3 L [facility] GrapevineEosinophils (%) (Auto)2018-05-21 14:26:00 * Test Item Value Reference Range Interpretation Comments Eosinophils (%) (Auto) (test code = 713-8) 0.2 0.0-6.0 [facility] GrapevineBasophils (%) (Auto)2018-05-21 14:26:00* Test Item Value Reference Range Interpretation Comments Basophils (%) (Auto) (test code = 706-2) 0.2 0.0-1.0 [facility]vineIM GRANULOCYTES %2018-05-21 14:26:00* Test Item Value Reference Range Interpretation Comments IM GRANULOCYTES % (test code = IM GRANULOCYTES %) 0.5 0.0- 1.0 [facility]vineNeutrophils # (Auto)2018-05-21 14:26:00* Test Item Value Reference Range Interpretation Comments Neutrophils # (Auto) (test code = 751-8) 11.8 2.1-6.9 H [facility]rapevineLymphocytes # (Auto)2018-05-21 14:26:00* Test Item Value Reference Range Interpretation Comments Lymphocytes # (Auto) (test code = 06462-8) 0.4 1.0-3.2 L [facility]vineMonocytes # (Auto)2018-05-21 14:26:00* Test Item Value Reference Range Interpretation Comments Monocytes # (Auto) (test code = 742-7) 0.5 0.2-0.8 [facility]vineEosinophils # (Auto)2018-05-21 14:26:00* Test Item Value Reference Range Interpretation Comments Eosinophils # (Auto) (test code = 711-2) 0.0 0.0-0.4 [facility]vineBasophils # (Auto)2018-05-21 14:26:00* Test Item Value Reference Range Interpretation Comments Basophils # (Auto) (test code = 704-7) 0.0 0.0-0.1 [facility] GrapevineAbsolute Immature Granulocyte (auto 2018-05-21 14:26:00* Test Item Value Reference Range Interpretation Comments Absolute Immature Granulocyte (auto (anjali t code = Absolute Immature Granulocyte (auto) 0.07 0-0.1 [facility]vineMRI BRAIN QT4285-85-77 11:30:00 [facility] [address] [place] [address] Patient Name: YUE RAMSEY MR #: [id number] : 1935 Age/Sex: 82/F [facility] #: [id number] Req #: [id number] Adm Physician: Ordered by: SANDRA CHASE MD Report #: [id number] Location: MRI Room/ Bed: Procedure: [id number] MRI/MRI BRAIN WO Exam Date : Exam [...] 11:44 AM Dictated By: TRENTON HOOVER MD 1146 Transcribed By: GELY on 01/30/18 1148 COPY TO: SANDRA CHASE MD White Blood Btgaz1611-16-55 10:02:00* Test Item Value Reference Range Interpretation Comments White Blood Count (test code = 6690-2) 7.09 4.8-10.8 [facility] GrapevineRed Blood Pefnk9474-75-51 10:02:00* Test Item Value Reference Range Interpretation Comments Red Blood Count (test code = 789-8) 4.60 3.6-5.1 [facility]vineHemoglobin2018-04-09 10:02:00* Test Item Value Reference Range Interpretation Comments Hemoglobin (test code = 08629-5) 13.9 12.0-16.0 [facility]vineHematocrit2018-04-09 10:02:00* Test Item Value Reference Range Interpretation Comments Hematocrit (test code = 4544-3) 40.9 34.2-44.1 [facility] GrapevineMean Corpuscular Ultsxw4767-91-77 10:02:00* Test Item Value Reference Range Interpretation Comments Mean Corpuscular Volume (test code = 787-2) 88.9 81-99 [facility]vineMean Corpuscular Rnmjxpeooh4855-69-60 10:02:00* Test Item Value Reference Range Interpretation Comments Mean Corpuscular Hemoglobin (test code = 785-6) 30.2 28-32 [facility] Fallsan Corpuscular Hemoglobin Concent 2017-09-01 10:02:00* Test Item Value Reference Range Interpretation Comments Mean Corpuscular Hemoglobin Concent (test code = 786-4) 34.0 31-35 [facility] GrapevineRed Cell Distribution Nidou7123-39-07 10:02:00* Test Item Value Reference Range Interpretation Comments Red Cell Distribution Width (test code = 94742-8) 13.7 11.7 -14.4 [facility] GrapevinePlatelet Gwdze8987-98-13 10:02:00* Test Item Value Reference Range Interpretation Comments Platelet Count (test code = 777-3) 235 140-360 [facility]vineNeutrophils (%) (Auto)2017-09-01 10:02:00 * Test Item Value Reference Range Interpretation Comments Neutrophils (%) (Auto) (test code = 63202-5) 62.1 38.7-80.0 [facility] GrapevineLymphocytes (%) (Auto)2017-09-01 10:02:00 * Test Item Value Reference Range Interpretation Comments Lymphocytes (%) (Auto) (test code = 736-9) 26.0 18.0-39.1 [facility]vineMonocytes (%) (Auto)2017-09-01 10:02:00* Test Item Value Reference Range Interpretation Comments Monocytes (%) (Auto) (test code = 5905-5) 7.6 4.4-11.3 [facility]vineEosinophils (%) (Auto)2017-09-01 10:02:00 * Test Item Value Reference Range Interpretation Comments Eosinophils (%) (Auto) (test code = 713-8) 3.0 0.0-6.0 [facility]vineBasophils (%) (Auto)2017-09-01 10:02:00* Test Item Value Reference Range Interpretation Comments Basophils (%) (Auto) (test code = 706-2) 1.0 0.0-1.0 [facility]vineIM GRANULOCYTES %2017-09-01 10:02:00* Test Item Value Reference Range Interpretation Comments IM GRANULOCYTES % (test code = IM GRANULOCYTES %) 0.3 0.0- 1.0 [facility]vineNeutrophils # (Auto)2017-09-01 10:02:00* Test Item Value Reference Range Interpretation Comments Neutrophils # (Auto) (test code = 751-8) 4.4 2.1-6.9 [facility] GrapevineLymphocytes # (Auto)2017-09-01 10:02:00* Test Item Value Reference Range Interpretation Comments Lymphocytes # (Auto) (test code = 51739-7) 1.8 1.0-3.2 [facility]vineMonocytes # (Auto)2017-09-01 10:02:00* Test Item Value Reference Range Interpretation Comments Monocytes # (Auto) (test code = 742-7) 0.5 0.2-0.8 [facility]vineEosinophils # (Auto)2017-09-01 10:02:00* Test Item Value Reference Range Interpretation Comments Eosinophils # (Auto) (test code = 711-2) 0.2 0.0-0.4 [facility]vineBasophils # (Auto)2017-09-01 10:02:00* Test Item Value Reference Range Interpretation Comments Basophils # (Auto) (test code = 704-7) 0.1 0.0-0.1 [facility] GrapevineAbsolute Immature Granulocyte (auto 2017-09-01 10:02:00* Test Item Value Reference Range Interpretation Comments Absolute Immature Granulocyte (auto (anjali t code = Absolute Immature Granulocyte (auto) 0.02 0-0.1 [facility]odium Flemz0430-63-35 10:02:00* Test Item Value Reference Range Interpretation Comments Sodium Level (test code = 2951-2) 141 136-145 [facility] GrapevinePotassium Gwybc9562-51-35 10:02:00* Test Item Value Reference Range Interpretation Comments Potassium Level (test code = 2823-3) 3.7 3.5-5.1 [facility] GrapevineChloride Ocjqk7570-09-82 10:02:00* Test Item Value Reference Range Interpretation Comments Chloride Level (test code = 2075-0) 109 98-107 H [facility] GrapevineCarbon Dioxide Qukhc3147-14-89 10:02:00* Test Item Value Reference Range Interpretation Comments Carbon Dioxide Level (test code = 2028-9) 24 22-29 [facility] GrapevineAnion Fwk2384-64-47 10:02:00* Test Item Value Reference Range Interpretation Comments Anion Gap (test code = 11132-8) 11.7 8-16 [facility] GrapevineBlood Urea Cwvnohph2273-50-58 10:02:00* Test Item Value Reference Range Interpretation Comments Blood Urea Nitrogen (test code = 3094-0) 20 7-26 [facility] GrapevineCreatinine2018-04-09 10:02:00* Test Item Value Reference Range Interpretation Comments Creatinine (test code = 2160-0) 1.14 0.57-1.11 H [facility] GrapevineBUN/Creatinine Tsqvh4338-04-90 10:02:00* Test Item Value Reference Range Interpretation Comments BUN/Creatinine Ratio (test code = 3097-3) 18 6-25 [facility] GrapevineEstimat Glomerular Filtration Rate 2017-09-01 10:02:00* Test Item Value Reference Range Interpretation Comments Estimat Glomerular Filtration Rate (test code = 38088-2) 46 >60 L Ranges were taken from the National Kidney Disease Education Program and the [facility] Kidney Foundation literature.Reference ranges:60 or greater: Emofoc84-64 ( for 3 consecutive months): Chronic kidney disease 15 or less: Kidney failureBaylor Scott & White Medical Center – GrapevineGlucose Vqchw6129-67-81 10:02:00* Test Item Value Reference Range Interpretation Comments Glucose Level (test code = EXY1474) 146 74-118 H [facility] GrapevineCalcium Zdxqe7366-28-76 10:02:00* Test Item Value Reference Range Interpretation Comments Calcium Level (test code = 95337-2) 9.2 8.4-10.2 [facility] GrapevineTotal Niazjcgjf7275-77-75 10:02:00* Test Item Value Reference Range Interpretation Comments Total Bilirubin (test code = 1975-2) 0.7 0.2-1.2 [facility] GrapevineAspartate Amino Transf (AST/SGOT) 2017-09-01 10:02:00* Test Item Value Reference Range Interpretation Comments Aspartate Amino Transf (AST/SGOT) (test code = Aspartate Amino Transf (AST/SGOT)) 27 5-34 [facility] GrapevineAlanine Aminotransferase (ALT/SGPT) 2017-09-01 10:02:00* Test Item Value Reference Range Interpretation Comments Alanine Aminotransferase (ALT/SGPT) (test code = 1742-6) 20 0-55 [facility] GrapevineTotal Wwaznuc3943-02-37 10:02:00* Test Item Value Reference Range Interpretation Comments Total Protein (test code = 2885-2) 7.6 6.5-8.1 [facility] GrapevineAlbumin2018-04-09 10:02:00* Test Item Value Reference Range Interpretation Comments Albumin (test code = 1751-7) 3.8 3.5-5.0 [facility] GrapevineGlobulin2018-04-09 10:02:00* Test Item Value Reference Range Interpretation Comments Globulin (test code = 23951-8) 3.8 2.3-3.5 H [facility] GrapevineAlbumin/Globulin Bxqjc2930-22-00 10:02:00 * Test Item Value Reference Range Interpretation Comments Albumin/Globulin Ratio (test code = 1759-0) 1.0 0.8-2.0 [facility] GrapevineAlkaline Ibmsrxckdor7028-53-32 10:02:00* Test Item Value Reference Range Interpretation Comments Alkaline Phosphatase (test code = 6768-6) 77 40-150 [facility] GrapevineUrine FJK3779-13-68 10:27:00* Test Item Value Reference Range Interpretation Comments Urine WBC (test code = 5821-4) NONE 0-5 [facility] GrapevineUrine SCU1660-54-80 10:27:00* Test Item Value Reference Range Interpretation Comments Urine RBC (test code = 75098-4) 0-5 0-5 [facility] GrapevineUrine Ygygoilq8433-87-26 10:27:00* Test Item Value Reference Range Interpretation Comments Urine Bacteria (test code = 68552-0) NONE NONE [facility] GrapevineUrine Epithelial Gzulu7212-14-76 10:27:00 * Test Item Value Reference Range Interpretation Comments Urine Epithelial Cells (test code = 71648-7) RARE NONE [facility] GrapevineUrine Hpell0164-99-28 09:20:00* Test Item Value Reference Range Interpretation Comments Urine Color (test code = 5778-6) YELLOW YELLOW [facility] GrapevineUrine Ohkbtkw4645-72-37 09:20:00* Test Item Value Reference Range Interpretation Comments Urine Clarity (test code = 51601-4) CLEAR CLEAR [facility] GrapevineUrine Specific Jgahlcm5808-47-95 09:20:00 * Test Item Value Reference Range Interpretation Comments Urine Specific [place] (test code = 5811-5) 1.015 1.010-1.02 5 [facility] GrapevineUrine nU8198-81-81 09:20:00* Test Item Value Reference Range Interpretation Comments Urine pH (test code = 93286-4) 5 5-7 [facility] GrapevineUrine Leukocyte Tybintdp5749-28-80 09:20:00* Test Item Value Reference Range Interpretation Comments Urine Leukocyte Esterase (test code = 5799-2) NEGATIVE NEGATIVE [facility] GrapevineUrine Lrwclid2321-44-34 09:20:00* Test Item Value Reference Range Interpretation Comments Urine Nitrite (test code = 02672-4) NEGATIVE NEGATIVE [facility] GrapevineUrine Xauwsey4982-04-89 09:20:00* Test Item Value Reference Range Interpretation Comments Urine Protein (test code = 5804-0) NEGATIVE NEGATIVE [facility] GrapevineUrine Glucose (UA)2017-03-13 09:20:00* Test Item Value Reference Range Interpretation Comments Urine Glucose (UA) (test code = 2349-9) NEGATIVE NEGATIVE [facility] GrapevineUrine Ldzuedt3316-80-72 09:20:00* Test Item Value Reference Range Interpretation Comments Urine Ketones (test code = 88077-6) NEGATIVE NEGATIVE [facility] GrapevineUrine Msjozwplwlal8465-19-34 09:20:00* Test Item Value Reference Range Interpretation Comments Urine Urobilinogen (test code = 74121-8) 0.2 0.2-1 [facility] GrapevineUrine Llozpujzi4309-13-45 09:20:00* Test Item Value Reference Range Interpretation Comments Urine Bilirubin (test code = 1978-6) NEGATIVE NEGATIVE [facility] GrapevineUrine Rdvqz3967-19-83 09:20:00* Test Item Value Reference Range Interpretation Comments Urine Blood (test code = 92200-2) TRACE NEGATIVE H [facility] GrapevineBedside Xsslwxs4479-11-86 02:54:00* Test Item Value Reference Range Interpretation Comments Bedside Glucose (test code = 73013-1) 103 70-120 Meter ID: [id number] Health Presbyterian DallasFerritin2017-10-15 14:02:00* Test Item Value Reference Range Interpretation Comments Ferritin (test code = 2276-4) 74.76 4.63-204.00 [facility] GrapevineIron Ajzro1982-20-21 13:46:00* Test Item Value Reference Range Interpretation Comments Iron Level (test code = 2498-4) 82 50-170 [facility] GrapevineTotal Iron Binding Yygioche3690-61-58 13:46:00* Test Item Value Reference Range Interpretation Comments Total Iron Binding Capacity (test code = 2500-7) 244 261-4 78 L [facility] GrapevinePercent Iron Vzctxmpdfr2959-86-90 13:46:00* Test Item Value Reference Range Interpretation Comments Percent Iron Saturation (test code = 2502-3) 34 15-50 [facility] GrapevineTransferrin2017-10-15 13:46:00* Test Item Value Reference Range Interpretation Comments Transferrin (test code = 3034-6) 174 180-382 L [facility] GrapevinePercent Reticulocyte Wvzcd4133-68-90 13:30:00* Test Item Value Reference Range Interpretation Comments Percent Reticulocyte Count (test code = 73029-6) 1.6 0.8-2 .2 [facility] Hospitaltool Occult Vduuy9228-15-42 09:35:00* Test Item Value Reference Range Interpretation Comments Stool Occult Blood (test code = 2335-8) POSITIVE NEGATIVE H [facility] GrapevineThyroid Stimulating Hormone (TSH) 2017-03-09 09:10:00* Test Item Value Reference Range Interpretation Comments Thyroid Stimulating Hormone (TSH) (test code = 42040-8) 2.526 0.350-4.940 [facility] GrapevineTriglycerides Rtokp2750-77-56 08:52:00* Test Item Value Reference Range Interpretation Comments Triglycerides Level (test code = 2571-8) 200 0-149 H [facility] GrapevineCholesterol Wrlwi2299-26-71 08:52:00* Test Item Value Reference Range Interpretation Comments Cholesterol Level (test code = 2093-3) 109 0-199 Less than 200 mg/dL Low Vztq391 - 239 mg/dL Borderline Tmvn890 m g/dl and greater High Risk [facility] GrapevineLDL Zjwezrgzwyt7493-72-71 08:52:00* Test Item Value Reference Range Interpretation Comments LDL Cholesterol (test code = 44921-7) 39 60-130 L [facility] GrapevineHDL Pnoxaklmvjq7696-63-94 08:52:00* Test Item Value Reference Range Interpretation Comments HDL Cholesterol (test code = 2085-9) 30 40-60 L [facility] GrapevineCholesterol/HDL Vgyyp1683-72-54 08:52:00 * Test Item Value Reference Range Interpretation Comments Cholesterol/HDL Ratio (test code = 9830-1) 3.6 3.0-3.6 [facility] GrapevineCreatine Kinase XC7383-65-62 00:11:00* Test Item Value Reference Range Interpretation Comments Creatine Kinase MB (test code = 05818-6) 1.10 0.00-5.00 [facility] GrapevineTroponin H6017-44-17 00:11:00* Test Item Value Reference Range Interpretation Comments Troponin I (test code = GGR3217) 0.013 0-0.300 [facility] GrapevineCreatine Llqilj3140-81-63 00:10:00* Test Item Value Reference Range Interpretation Comments Creatine Kinase (test code = 2157-6) 19 29-168 L [facility] GrapevineAmylase Bkedd1520-96-99 13:01:00* Test Item Value Reference Range Interpretation Comments Amylase Level (test code = 1798-8) 77 25-125 [facility] GrapevineLipase2017-10-14 13:01:00* Test Item Value Reference Range Interpretation Comments Lipase (test code = 3040-3) 93 8-78 H [facility] GrapevineProthrombin Vxnk9305-63-96 08:11:00* Test Item Value Reference Range Interpretation Comments Prothrombin Time (test code = 5902-2) 14.2 11.9-14.5 [facility] GrapevineProthromb Time International Ratio 2017-03-08 08:11:00* Test Item Value Reference Range Interpretation Comments Prothromb Time International Ratio (test code = 6301-6) 1.05 Oral Anticoagulant Therapy INR Values:1. Low Intensity Therapy 1.5 - 2.02 . Moderate Intensity Therapy 2.0 - 3.03. High Intensity Therapy(1) 2.5 - 3. 54. High Intensity Therapy(2) 3.0 - 4.05. Panic Value INR > 5.0 [facility] GrapevineActivated Partial Thromboplast Time 2017-03-08 08:11:00* Test Item Value Reference Range Interpretation Comments Activated Partial Thromboplast Time (test code = 18493-1) 34.5 23.8-35.5 [facility] GrapevineBlood Slktdtd1313-91-74 17:04:00* Test Item Value Reference Range Interpretation Comments Blood Culture (test code = 84414902) NO GROWTH AFTER 5 DAYS, FINAL REPORT [facility] A IgM Bokqugxo8299-72-75 06:17:00* Test Item Value Reference Range Interpretation Comments Hepatitis A IgM Antibody (test code = 42177-7) Negative Negativ e [facility] B Surface Joownsb5157-34-60 06:17:00* Test Item Value Reference Range Interpretation Comments Hepatitis B Surface Antigen (test code = 5196-1) Negative Negat scottie [facility] B Core IgM Xcdapsot1121-99-14 06:17:00* Test Item Value Reference Range Interpretation Comments Hepatitis B Core IgM Antibody (test code = 66405-2) Negative Ne gative [facility] C Dqneifya3408-26-15 06:17:00* Test Item Value Reference Range Interpretation Comments Hepatitis C Antibody (test code = 68772-4) -0.1 0.0-0.9 Negative: < 0.8 Indeterminate: 0.8 - 0.9 Positive: > 0.9 The CDC recommends that a positive HCV antibody result be followed up with a HCV Nucleic Acid Amplification test (865849).Performed at: [facility] [address] [place], [place] [id number] Director: Dao Barrera MD, Phone: [phone] Methodist [facility] SINGLE (PORTABLE) [address] [address] Patient Name: YUE RAMSEY MR #: [id number] : 1935 Age/Sex: 81/F Req #: [id number] Adm Physician: Ordered by: NEERAJ TIRADO MD Report #: [id number] Location: ER Room/Bed: Procedure: [id number] DX/CHEST SINGLE (PORTABLE) E xam Date: 03/13/17 [...] TO: NEERAJ TIRADO MD CT BRAIN WO [place] [address] Patient Name: YUE RAMSEY MR #: [id number] : 1935 Age/Sex: 81/F Req #: [id number] Adm Physician: Ordered by: NEERAJ TIRADO MD Report #: [id number] Location: ER Room/Bed: Procedure: [id number] CT/CT BRAIN WO Exam Date: Exam Time: [...] on 03/13/171114 COPY TO: NEERAJ TIRADO MD [facility] ([facility] [address] [place] [address] Patient Name: YUE RAMSEY MR #: [id number] : 1935 Age/Sex: 81/F Req #: [id number] Adm Physicia n: SANDRA CHASE MD Ordered by: MATTHEW GALAVIZ MD Report #: [id number] Loca tion: IMCU Room/Bed: IMCU 198-1 Procedure: [id number] DX/ABDOMEN-1VIEW (KUB) Exam Date: 03/08/17 Exam Time [...] 03/08/171411 COPY T O: MATTHEW GALAVIZ MD ABDOMEN COMPLETE [place] [address] Patient Name: YUE RAMSEY MR #: [id number] : 1935 Age/Sex: 81/F Req #: [id number] Adm Physician: SANDRA CHASE MD Ordered by: MATTHEW GALAVIZ MD Report #: [id number] Location: IMCU Room/Bed: [facility] 1981 Procedure: [id number] US/US ABDOMEN COMPLETE Exam Date: Exam Time: [...] TO: MATTHEW GALAVIZ MD MRI MRCP [place] [address] Patient Name: YUE RAMSEY MR #: [id number] : 1935 Age/Sex: 81/F Req #: [id number] Adm Physician: SANDRA CHASE MD Ordered by: ABRAHAM TOLENTINO MD Report #: [id number] Location: MED/SURG2 Room/Bed: [facility] Procedure: [id number] MRI/MRI MRCP WO Exam Date: 01/13/17 Exam Time: 0850 REPORT STATUS: Signed EXAM: Magnetic Resonance Cholangiopancreatogr aphy (M.R.C.P.) INDICATION: COMPARISON: Abdominal ultra sound 01/12/2017, abdominal CT 01/12/2017 TECHNIQUE: Multiplanar, multisequence MRCP was performed, with sequences including coronal turbo spin-echo T1-weight ed scans, [facility] MRCP scans, coronal spin, coronal MPR 2, SMRCP 3D HR, [facility] MRCP R AI. IV Contrast: None Oral [...] TO: OMID TOLENTINO MD CHEST 2 VIEWS [place] [address] Patient Name: YUE RAMSEY MR #: [id number] : 1935 Age/Sex: 81/F Req #: [id number] Adm Physician: Ordered by: NEERAJ TIRADO MD Report #: [id number] Location: ER Room/Bed: Procedure: [id number] DX/CHEST 2 VIEWS Exam Date: 01/12/17 Exam [...] acute radiograp hic abnormality. Signed by: Dr. Juloi Byrd M.D. on 01/12/2017 3:31 PM Dictated By: JULIO BYRD MD 1531 COPY TO: NEERAJ TIRADO MD CT ABDOMEN/PELVIS WO [place] [address] Patient Name: YUE RAMSEY MR #: [id number] : 1935 Age/Sex: 81/F Req #: [id number] Adm Physician: Ordered by: NEERAJ TIRADO MD Report #: [id number] Location: ER Room/Bed: Procedure: [id number] CT/CT ABDOMEN/PELVIS WO Exam Date: 01/12/17 Exam [...] 3:44 PM Dictated By: JULIO BYRD MD 3512 Transcribed By: GELY on 01/12/17 2298 COPY TO: NEERAJ TIRADO MD [place] [address] Patient Name: YUE RAMSEY MR #: [id number] : 1935 Age/Sex: 81/F Req #: [id number] Adm Physician: SANDRA CHASE MD Ordered by: NEERAJ TIRADO MD Report #: [id number] Location: [facility] Room/Bed: [place] [address] Procedure: [id number] US/US LIVER Exam Date: Exam Time: REPORT [...]
== END 2020-04-26 16:44 | disposition home or self-care (01) ==
LOC: ER 16:44
DX: R53.1 Weakness (principal); I10 Essential (primary) hypertension; E03.9 Hypothyroidism, unspecified; K21.9 Gastro-esophageal reflux disease without esophagitis; M10.9 Gout, unspecified; G62.9 Polyneuropathy, unspecified; Z85.43 Personal history of malignant neoplasm of ovary; Z95.810 Presence of automatic (implantable) cardiac defibrillator
CPT/HCPCS: 99282

== ENCOUNTER 2021-03-01 19:14 | Emergency (ER) | payer MEDICARE ==
[~2021-03-01] VITALS: Ht 162.6 cm; Wt 61.2 kg
== END 2021-03-01 21:00 | disposition home or self-care (01) ==
LOC: ER 19:28
DX: I10 Essential (primary) hypertension (principal); Z85.43 Personal history of malignant neoplasm of ovary; Z85.41 Personal history of malignant neoplasm of cervix uteri; Z95.810 Presence of automatic (implantable) cardiac defibrillator
CPT/HCPCS: 99282

== ENCOUNTER 2021-03-27 13:08 | Emergency (ER) | payer MEDICARE ==
[~2021-03-27] VITALS: Ht 162.6 cm; Wt 61.2 kg
[2021-03-27] MEDS ORDERED: SODIUM CHLORIDE 0.9% 1000ML 500 ML IV STA (13:31)
[2021-03-27] MEDS ORDERED: ASPIRIN 81 MG CHEW TAB PO ONE (13:45)
[2021-03-27 13:52] LABS: BASOPHILS # (AUTO) 0.1 (0.0-0.1); EOSINOPHILS # (AUTO) 0.3 (0.0-0.4); EOSINOPHILS % 3.5 % (0.0-6.0); HEMATOCRIT 37.8 % (34.2-44.1); HEMOGLOBIN 12.3 g/dL (12.0-16.0); LYMPHOCYTES % 27.6 % (18.0-39.1); MEAN CORPUSCULAR HEMOGLOBIN 31.9 pg (28-32); MEAN CORPUSCULAR HGB CONC 32.5 g/dL (31-35); MEAN CORPUSCULAR VOLUME 97.9 fL (81-99); MONOCYTES # (AUTO) 0.6 (0.2-0.8); MONOCYTES % 8.6 % (4.4-11.3); NEUTROPHILS # (AUTO) 4.3 (2.1-6.9); PLATELET COUNT 196 x10e3/uL (140-360); RED BLOOD COUNT 3.86 x10e6/uL (3.6-5.1)
[2021-03-27 13:58] LABS: INR 0.95; PROTHROMBIN TIME 13.4 seconds (11.9-14.5)
[2021-03-27 13:59] LABS: PARTIAL THROMBOPLASTIN TIME 24.2 seconds (23.8-35.5)
[2021-03-27] MEDS ORDERED: CRESTOR5 MG PO (14:08)
[2021-03-27] MEDS ORDERED: NAMENDA10 MG PO (14:08)
[2021-03-27 14:13] LABS: ALBUMIN 3.8 g/dL (3.5-5.0); ANION GAP 12.5 mmol/L (8-16); CALCIUM 8.8 mg/dL (8.4-10.2); CREATININE, SERUM 1.69 mg/dL (0.57-1.11); MAGNESIUM 2.3 MG/DL (1.3-2.1); POTASSIUM 4.5 mmol/L (3.5-5.1)
[2021-03-27 14:21] LABS: CREATINE KINASE MB 1.8 ng/mL (0-5.0)
[2021-03-27] MEDS ORDERED: SODIUM CHLORIDE 0.9% 500ML 500 ML ONE (14:37)
[2021-03-27 14:38] LABS: CLARITY,URINE SL CLOUDY (CLEAR); COLOR,URINE YELLOW (YELLOW)
[2021-03-27 14:39] LABS: KETONES,URINE NEGATIVE (NEGATIVE); LEUKOCYTE ESTERASE ,URINE TRACE (NEGATIVE); NITRITE,URINE NEGATIVE (NEGATIVE); PROTEIN,URINE DIPSTICK NEGATIVE (NEGATIVE); URINE UROBILINOGEN 0.2 mg/dL (0.2 - 1)
[2021-03-27 14:49] LABS: BACTERIA,URINE MANY /HPF; WBC,URINE (MAN) 0-5 /HPF (0-5)
[2021-03-27] MEDS ORDERED: HYDRALAZINE HCL 20 MG/ML VIAL IV NR (15:30)
[2021-03-27] MEDS ORDERED: CLONIDINE HCL 0.1 MG TAB PO ONE (15:30)
[2021-03-27] MEDS ORDERED: HYDRALAZINE HCL 20 MG/ML VIAL ONE (15:47)
[2021-03-27] MEDS ORDERED: HYDRALAZINE HCL25 MG PO (16:49)
== END 2021-03-27 17:13 | disposition home or self-care (01) ==
LOC: ER 13:23
DX: I16.0 Hypertensive urgency (principal); R53.1 Weakness; I10 Essential (primary) hypertension; F03.90 Unspecified dementia, unspecified severity, without behavioral disturbance, psychotic disturbance, mood disturbance, and anxiety; E03.9 Hypothyroidism, unspecified; K21.9 Gastro-esophageal reflux disease without esophagitis; M10.9 Gout, unspecified; Z95.810 Presence of automatic (implantable) cardiac defibrillator
CPT/HCPCS: 36415; 70450; 71045; 80053; 81001; 82550; 82553; 83735; 84484; 85025; 85379; 85610; 85730; 93005; 93970; 99284; J0360; J7040

== ENCOUNTER 2021-07-01 14:47 | Emergency (ER) | payer MEDICARE ==
[~2021-07-01] VITALS: Ht 162.6 cm; Wt 61.2 kg
[~2021-07-01 14:47] MED LIST changes: +CRESTOR5 MG PO; +NAMENDA10 MG PO
[2021-07-01 15:31] LABS: BASOPHILS % 0.4 % (0.0-1.0); EOSINOPHILS # (AUTO) 0.3 (0.0-0.4); EOSINOPHILS % 4.2 % (0.0-6.0); HEMATOCRIT 38.1 % (34.2-44.1); HEMOGLOBIN 12.4 g/dL (12.0-16.0); LYMPHOCYTES # (AUTO) 1.4 (1.0-3.2); LYMPHOCYTES % 20.6 % (18.0-39.1); MEAN CORPUSCULAR HEMOGLOBIN 31.1 pg (28-32); MEAN CORPUSCULAR HGB CONC 32.5 g/dL (31-35); MEAN CORPUSCULAR VOLUME 95.5 fL (81-99); MONOCYTES # (AUTO) 0.6 (0.2-0.8); MONOCYTES % 7.9 % (4.4-11.3); NEUTROPHILS # (AUTO) 4.6 (2.1-6.9); NEUTROPHILS % 66.6 % (38.7-80.0); PLATELET COUNT 221 x10e3/uL (140-360); RED BLOOD COUNT 3.99 x10e6/uL (3.6-5.1); RED CELL DISTRIBUTION WIDTH 12.6 % (11.7-14.4)
[2021-07-01 15:36] LABS: CLARITY,URINE CLEAR (CLEAR); COLOR,URINE YELLOW (YELLOW); KETONES,URINE NEGATIVE (NEGATIVE); LEUKOCYTE ESTERASE ,URINE SMALL (NEGATIVE); NITRITE,URINE NEGATIVE (NEGATIVE); PROTEIN,URINE DIPSTICK NEGATIVE (NEGATIVE); URINE UROBILINOGEN 0.2 mg/dL (0.2 - 1)
[2021-07-01 15:48] LABS: BACTERIA,URINE MODERATE /HPF; EPITHELIAL CELLS,URINE FEW /LPF
[2021-07-01 15:54] LABS: ALBUMIN 3.3 g/dL (3.5-5.0); ALBUMIN/GLOBULIN RATIO 0.9 (0.8-2.0); ANION GAP 12.9 mmol/L (8-16); CALCIUM 9.1 mg/dL (8.4-10.2); CREATININE, SERUM 1.32 mg/dL (0.57-1.11); POTASSIUM 3.9 mmol/L (3.5-5.1)
[2021-07-01] MEDS ORDERED: SODIUM CHLORIDE 0.9% 50ML 50 ML ONE (16:18)
[2021-07-01] MEDS ORDERED: IOPAMIDOL 370 MG/ML 200 ML INFUS..BTL INJ ONE (16:18)
[2021-07-01] MEDS ORDERED: PANTOPRAZOLE SO40 MG PO (17:45)
[2021-07-01] MEDS ORDERED: ONDANSETRON ODT4 MG PO (17:45)
== END 2021-07-01 18:20 | disposition home or self-care (01) ==
LOC: ER 16:01
DX: R10.84 Generalized abdominal pain (principal); R11.2 Nausea with vomiting, unspecified; I10 Essential (primary) hypertension; E03.9 Hypothyroidism, unspecified; K21.9 Gastro-esophageal reflux disease without esophagitis; M10.9 Gout, unspecified; G62.9 Polyneuropathy, unspecified; F03.90 Unspecified dementia, unspecified severity, without behavioral disturbance, psychotic disturbance, mood disturbance, and anxiety; R94.31 Abnormal electrocardiogram [ECG] [EKG]; Z85.43 Personal history of malignant neoplasm of ovary; Z85.41 Personal history of malignant neoplasm of cervix uteri; Z95.810 Presence of automatic (implantable) cardiac defibrillator
CPT/HCPCS: 36415; 71045; 74177; 80053; 81001; 84484; 85025; 93005; 99284; Q9967

== ENCOUNTER 2021-07-12 11:25 | Emergency (ER) | payer MEDICARE ==
[~2021-07-12] VITALS: Ht 162.6 cm; Wt 61.2 kg
[~2021-07-12 11:25] MED LIST changes: +ONDANSETRON ODT4 MG PO
[2021-07-12 12:01] LABS: BASOPHILS # (AUTO) 0.1 (0.0-0.1); BASOPHILS % 0.7 % (0.0-1.0); EOSINOPHILS # (AUTO) 0.2 (0.0-0.4); EOSINOPHILS % 1.7 % (0.0-6.0); HEMATOCRIT 36.9 % (34.2-44.1); HEMOGLOBIN 12.3 g/dL (12.0-16.0); LYMPHOCYTES # (AUTO) 1.7 (1.0-3.2); LYMPHOCYTES % 18.9 % (18.0-39.1); MEAN CORPUSCULAR HEMOGLOBIN 31.5 pg (28-32); MEAN CORPUSCULAR HGB CONC 33.3 g/dL (31-35); MEAN CORPUSCULAR VOLUME 94.6 fL (81-99); MONOCYTES # (AUTO) 0.7 (0.2-0.8); MONOCYTES % 8.1 % (4.4-11.3); NEUTROPHILS # (AUTO) 6.1 (2.1-6.9); NEUTROPHILS % 70.4 % (38.7-80.0); PLATELET COUNT 180 x10e3/uL (140-360); RED CELL DISTRIBUTION WIDTH 13.2 % (11.7-14.4)
[2021-07-12 12:17] LABS: ALBUMIN 3.5 g/dL (3.5-5.0); ANION GAP 14.9 mmol/L (8-16); CALCIUM 9.5 mg/dL (8.4-10.2); CREATININE, SERUM 1.4 mg/dL (0.57-1.11); POTASSIUM 3.9 mmol/L (3.5-5.1)
[2021-07-12 12:21] LABS: CLARITY,URINE TURBID (CLEAR); COLOR,URINE YELLOW (YELLOW); KETONES,URINE NEGATIVE (NEGATIVE); LEUKOCYTE ESTERASE ,URINE MODERATE (NEGATIVE); NITRITE,URINE POSITIVE (NEGATIVE); PROTEIN,URINE DIPSTICK NEGATIVE (NEGATIVE); URINE UROBILINOGEN 0.2 mg/dL (0.2 - 1)
[2021-07-12 12:27] LABS: BACTERIA,URINE MANY /HPF; EPITHELIAL CELLS,URINE FEW /LPF; RBC,URINE 0-5 /HPF (0-5); WBC,URINE (MAN) >50 /HPF (0-5)
[2021-07-12] MEDS ORDERED: SODIUM CHLORIDE 0.9% 500ML 500 ML IV ONE (13:30)
[2021-07-12] MEDS ORDERED: IOPAMIDOL 370 MG/ML 200 ML INFUS..BTL INJ ONE (13:39)
[2021-07-12] MEDS ORDERED: SODIUM CHLORIDE 0.9% 50ML 50 ML ONE (13:39)
[2021-07-12] MEDS ORDERED: CIPROFLOXACIN500 MG PO (14:31)
[2021-07-12] MEDS ORDERED: ULTRAM 50MG50 MG PO (14:31)
[2021-07-12] MEDS ORDERED: METRONIDAZOLE500 MG PO (14:31)
[2021-07-12] MEDS ORDERED: ONDANSETRON ODT4 MG PO (14:31)
[2021-07-12] MEDS ORDERED: CIPROFLOXACIN 500 MG TAB PO STA (14:34)
== END 2021-07-12 15:04 | disposition home or self-care (01) ==
LOC: ER 11:42
DX: R10.32 Left lower quadrant pain (principal); N39.0 Urinary tract infection, site not specified; K57.32 Diverticulitis of large intestine without perforation or abscess without bleeding; R11.2 Nausea with vomiting, unspecified; I10 Essential (primary) hypertension; K21.9 Gastro-esophageal reflux disease without esophagitis; E03.9 Hypothyroidism, unspecified; Z20.822 Contact with and (suspected) exposure to COVID-19; Z85.43 Personal history of malignant neoplasm of ovary; Z85.41 Personal history of malignant neoplasm of cervix uteri; Z95.810 Presence of automatic (implantable) cardiac defibrillator
CPT/HCPCS: 36415; 51700; 74177; 80053; 81001; 83690; 85025; 93005; 99284; Q9967; U0002

== ENCOUNTER → 2021-07-18 | Outpatient (CLI) | payer MEDICARE ==
[~2021-07-18] MED LIST changes: +CIPROFLOXACIN500 MG PO; +METRONIDAZOLE500 MG PO
== END ==
LOC: RAD 08:56
PROVIDERS: ATTEND Internal Medicine
DX: K59.01 Slow transit constipation (principal)
CPT/HCPCS: 74018

== ENCOUNTER → 2021-07-24 | Emergency (ER) | payer MEDICARE | END | disposition left against medical advice (07) | LOC: ER 21:44 | DX: R10.9 Unspecified abdominal pain (principal) ==